=== PATIENT | female | born 1940 | race Caucasian/White ===

== ENCOUNTER → 2017-01-11 | Outpatient (CLI) | payer MEDICARE, OTHER ==
--- NOTE | 2017-01-11 13:05 | FL ---
EXAMINATION TYPE: FL barium swallow w video DATE OF EXAM: 01/11/2017 MODIFIED SWALLOW / DEGLUTITION STUDY CLINICAL HISTORY: Dysphagia. TECHNIQUE: Deglutition study is performed utilizing thin liquid barium, honey and nectar thick liqui d barium, barium thick applesauce, and barium coated cracker. COMPARISON: None. FINDINGS: The oral and pharyngeal phases delayed initiation and propagation with all modalities teste d. Intermittent, transient penetration was seen with all consistencies, improved with chin to maneuve r. Normal mastication is seen with solid modalities tested. There is no evidence of laryngeal aspira tion with any modality tested. Minimal pharyngeal residue was appreciated. IMPRESSION: Intermittent transient penetration, improved with chin tuck maneuver. No evidence of francheska ngeal aspiration. Please refer to speech therapist notes for further details if necessary.
--- NOTE | 2017-01-11 13:08 | XR ---
EXAMINATION TYPE: XR abdomen 1V , 3 VIEWS DATE OF EXAM ORDERED: 01/11/2017 HISTORY: R13.1 dysphagia. COMPARISON: None. FINDINGS: The abdominal gas pattern is within normal limits. There is no evidence of obstruction or free air. There is a moderate amount stool in the right-sided colon and also within the rectum. The r adial opaque substances within the rectum. This has a appearance of ingested medication. 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 IMPRESSION: 1. NO ACUTE INTRA-ABDOMINAL ABNORMALITY. 2. MODERATE FECAL STASIS.
--- NOTE | 2017-01-11 13:15 | FL ---
EXAMINATION TYPE: FL barium swallow DATE OF EXAM: 01/11/2017 CLINICAL HISTORY: Dysphagia TECHNIQUE: A single contrast esophagram is performed utilizing air and barium. A total of 2 minutes and 20 seconds of fluoroscopic time was utilized during procedure. COMPARISON: None FINDINGS: Examination is limited as the patient could not stand upright for the procedure, therefore examination was done in a supine position. The esophagus is dilated and patulous throughout. Numerous air bubbles are seen, however other plaque s persists throughout the examination. Additional outpouching at the level of the proximal thoracic e sophagus is seen left laterally and persists through the examination. Tertiary contractions are also noted as well as a small hiatal hernia. Moderate gastroesophageal reflux is present in the gravity in dependent examination. IMPRESSION: Dilated and patulous esophagus without obstruction at the gastroesophageal junction. Multifocal plaqu es may be sequela of underlying esophagitis. Moderate reflux is identified as well as a small hiatal hernia. Additional outpouching with potential intrinsic mass is seen in the upper left lateral thorac ic esophagus. Endoscopy is recommended for direct visualization.
== END | disposition home or self-care (01) ==
LOC: RADFLMAIN 11:12
PROVIDERS: ATTEND Family Medicine
DX: K22.8 Other specified diseases of esophagus (principal); K44.9 Diaphragmatic hernia without obstruction or gangrene; F41.9 Anxiety disorder, unspecified; K21.9 Gastro-esophageal reflux disease without esophagitis; R10.9 Unspecified abdominal pain
CPT/HCPCS: 74000; 74220; 74230

== ENCOUNTER 2017-01-12 15:02 | Inpatient (IN) | payer MEDICARE, OTHER ==
--- NOTE | 2017-01-12 15:05 | ED ---
General Adult HPI - General Stated complaint: Decreased urine output Time Seen by Provider: 01/12/17 15:04 - History of Present Illness Initial comments: Patient is a 76-year-old bedbound female who presents to the ED from an extended care facility for evaluation of altered mental status. Per the daughter at bedside the patient has been bedbound for 13 years, she was previously and in extended care facility in [place]. Earlier this month she was taken to an outside hospital at which time she was noted to be septic secondary to pneumonia and urinary tract infection. She was treated with IV antibiotics and discharged to an extended care facility near our hospital. Patient's daughter states that her mother has been in extended care facility since approximately January 04. The daughter has visited her mother daily and states that over the past couple of days she has noticed a significant decline in the patient's mental status as well as functional ability. Daughter at bedside states that her mother seems confused, she is not making sense when she is talking, her speech sounds slurred and she is not effectively communicating. In addition she states that her mother has been very weak and over the past couple of days has had worsening weakness to a point now where she cannot feed herself or hold a cup of water. Daughter also expresses concern that her mother hasn't been eating or drinking well for the past 2 days and she attributes this to her mother's weakness. Patient is alert to self. She can identify that she is at a hospital. She has no acute complaints. She states that she is in pain and that she is always in pain. She cannot localize her pain. She tells me that she was brought to the emergency department because she has been sleeping too much. - Related Data Home Medications Medication Instructions Recorded Confirmed ALPRAZolam [Xanax] 0.25 mg PO BID PRN 01/12/17 01/12/17 Acetaminophen Tab [Tylenol Tab] 500 mg PO Q6H PRN MDD 4000MG PER 01/12/17 24HR Aspirin 81 mg PO DAILY 01/12/17 01/12/17 Calcium Carb-Vit D 500Mg-200Un 1 tab PO BID 01/12/17 01/12/17 [Oscal 500+D] Cholecalciferol [Vitamin D3] 2,000 unit PO DAILY 01/12/17 01/12/17 DULoxetine HCL [Cymbalta] 60 mg PO BID 01/12/17 01/12/17 Dimethicone/Zinc Oxide [Inzo Zinc 1 applic TOPICAL DIRECTED PRN 01/12/17 Oxide Barrier Cream] Dimethicone/Zinc Oxide [Inzo Zinc 1 applic TOPICAL Q12H 01/12/17 01/12/17 Oxide Barrier Cream] Docusate [Colace] 100 mg PO DAILY PRN 01/12/17 01/12/17 Escitalopram [Lexapro] 10 mg PO DAILY 01/12/17 01/12/17 Gabapentin [Neurontin] 200 mg PO BID 01/12/17 01/12/17 Hydrocodone/Acetaminophen [Douglas 1 tab PO BID 01/12/17 01/12/17 7.5-325] Hydrocodone/Acetaminophen [Douglas 1 tab PO Q6HR PRN 01/12/17 01/12/17 7.5-325] Ipratropium-Albuterol Nebulize 3 ml INHALATION RT-Q4H PRN 01/12/17 01/12/17 [Duoneb 0.5 mg-3 mg/3 ml Soln] Levothyroxine Sodium [Synthroid] 125 mcg PO DAILY 01/12/17 01/12/17 Lidocaine 5% Patch [Lidoderm] 1 patch TOPICAL DAILY@1800 01/12/17 01/12/17 Loratadine [Claritin] 10 mg PO DAILY 01/12/17 01/12/17 Magnesium Hydroxide [Milk of 2,400 mg PO DAILY PRN 01/12/17 01/12/17 Magnesia] Metoprolol Succinate [Toprol XL] 25 mg PO DAILY 01/12/17 01/12/17 Multivits,Th W-Ca,Fe,Oth Min 1 tab PO DAILY 01/12/17 01/12/17 [Therapeutic M] Nystatin 100,000Unit/gm Cream 1 applic TOPICAL Q12H 01/12/17 01/12/17 [Mycostatin Cream] Omeprazole [PriLOSEC] 20 mg PO AC-BRKFST 01/12/17 01/12/17 Ondansetron HCl [Zofran] 4 mg PO Q6H PRN 01/12/17 01/12/17 Polyethylene Glycol 3350 [Miralax] 17 gm PO DAILY PRN 01/12/17 01/12/17 QUEtiapine [SEROquel] 50 mg PO HS 01/12/17 01/12/17 Sodium Chloride [Saline Mist] 2 spray EA NOSTRIL DIRECTED PRN 01/12/17 Topiramate [Topamax] 50 mg PO BID 01/12/17 01/12/17 amLODIPine [Norvasc] 5 mg PO DAILY 01/12/17 01/12/17 Allergies Allergy/AdvReac Type Severity Reaction Status Date / Time metronidazole [From Flagyl] Allergy Unknown Verified 01/12/17 15:50 Review of Systems ROS Statement: Those systems with pertinent positive or pertinent negative responses have been documented in the HPI. ROS Other: All systems not noted in ROS Statement are negative. Constitutional: Reports: weakness (generalized). Denies: fever Eyes: Denies: vision change ENT: Denies: throat pain, congestion Respiratory: Reports: cough. Denies: dyspnea, wheezes Cardiovascular: Reports: edema. Denies: chest pain Endocrine: Reports: fatigue Gastrointestinal: Reports: abdominal pain (abdominal wall pain secondary to heparin injections) Genitourinary: Reports: other (urinary incontinence - chronic, diapered). Denies: urgency, dysuria Musculoskeletal: Reports: arthralgia, myalgia Skin: Reports: change in color (bilateral lower extremities appear redder than usual) Neurological: Reports: confusion Psychiatric: Reports: visual hallucinations General Exam Limitations: altered mental status General appearance: alert, obese Head exam: Present: atraumatic, normocephalic Eye exam: Present: PERRL, other (conjunctival pallor) ENT exam: Present: other (dry mucous membranes) Neck exam: Present: normal inspection Respiratory exam: Present: decreased breath sounds (bilateral bases) Cardiovascular Exam: Present: regular rate GI/Abdominal exam: Present: soft, tenderness (Abdominal wall tenderness, multiple bruises noted, consistent with history of subcutaneous heparin injections). Absent: distended Rectal exam: Present: deferred External exam: Present: other (Dependent edema noted) Extremities exam: Present: pedal edema, other (Bilateral lower extremities edematous with cellulitic changes worse in the left lower extremity than the right. Bilateral feet and ankles with dropfoot and chronic changes consistent with Charcot foot) Right Hand Wrist exam: Present: deformity (Chronic secondary to an injury 13 years ago that was never treated) Neurological exam: Present: alert, other (Oriented to self, right sided arm weakness and deformity) Psychiatric exam: Present: other (Confused) Skin exam: Present: warm, dry, pallor Course Vital Signs 01/12/17 01/12/17 01/12/17 15:50 17:03 18:13 Temperature 99.5 F 98.8 F Pulse Rate 87 97 86 Respiratory 20 20 18 Rate Blood Pressure 96/55 97/53 101/57 O2 Sat by Pulse 96 95 94 L Oximetry 01/12/17 01/12/17 18:33 19:46 Temperature 99.3 F Pulse Rate 85 79 Respiratory 18 20 Rate Blood Pressure 110/57 123/77 O2 Sat by Pulse 97 93 L Oximetry - Reevaluation(s) Reevaluation #1: Patient reevaluated, resting comfortably in the emergency department. Is noted to have mild hypotension with systolics in the mid 90s. Map remains above 65. 01/12/17 17:05 Reevaluation #2: Patient reevaluated. Patient care was discussed with the patient's family at bedside who state the patient's most recent wishes were that she would be full code and would consent to invasive procedures were then to be needed 01/12/17 18:28 EKG Findings - EKG Comments: EKG Findings:: EKG time 1628 EKG has a normal sinus rhythm with a rate of 88. Normal intervals, RI 180, QRS 80, QTC 411. There is no acute ST elevations or depressions. There is noted to be T-wave inversions in V1 and V2 and Q waves indicative of previous ischemia. Medical Decision Making - Medical Decision Making Patient was seen and evaluated upon arrival to the emergency department Vital signs were reviewed, patient was mildly hypoxic, hypotensive Given the patient's history of recent admission to the hospital for sepsis, her altered mental status, bedridden status and immune compromised state there is concern that she is again septic. In addition physical exam is concerning for significant pallor which the daughter states is new. A sepsis workup as well as cardiac labs and type and screen were ordered for evaluation Labs reveal leukocytosis with neutrophilia. No lactic acidosis - repeat lactic acid not ordered Chest x-ray reveals persistent right-sided pneumonia patient has antibiotics ordered which are appropriate for HCAP Pneumonia Urinalysis with bacteria but no signs of urinary tract infection Patient's hypotension improving after IV fluids CT head with no acute findings Patient care discussed with Dr. Vega who accepts admission to the selective unit for sepsis secondary to HCAP Pneumonia with altered mental status she is she - Lab Data Result diagrams: 01/12/17 15:49 01/12/17 15:49 Lab Results 01/12/17 01/12/17 01/12/17 Range/Units 15:49 15:49 15:49 WBC 18.1 H (3.8-10.6) k/uL RBC 3.38 L (3.80-5.40) m/uL Hgb 9.7 L (11.4-16.0) gm/dL Hct 31.6 L (34.0-46.0) % MCV 93.6 (80.0-100.0) fL MCH 28.7 (25.0-35.0) pg MCHC 30.7 L (31.0-37.0) g/dL RDW 16.4 H (11.5-15.5) % Plt Count 253 (150-450) k/uL Neutrophils % 92 % Lymphocytes % 4 % Monocytes % 2 % Eosinophils % 2 % Basophils % 0 % Neutrophils # 16.7 H (1.3-7.7) k/uL Lymphocytes # 0.6 L (1.0-4.8) k/uL Monocytes # 0.4 (0-1.0) k/uL Eosinophils # 0.3 (0-0.7) k/uL Basophils # 0.0 (0-0.2) k/uL Hypochromasia Moderate Poikilocytosis Slight Anisocytosis Slight PT (9.0-12.0) sec INR (<1.2) APTT (22.0-30.0) sec VBG pH (7.31-7.41) VBG pCO2 (37-51) mmHg VBG HCO3 (24-28) mmol/L Sodium 129 L (137-145) mmol/L Potassium 4.9 (3.5-5.1) mmol/L Chloride 87 L (98-107) mmol/L Carbon Dioxide 33 H (22-30) mmol/L Anion Gap 9 mmol/L BUN 34 H (7-17) mg/dL Creatinine 1.10 H (0.52-1.04) mg/dL Est GFR (MDRD) Af Amer 59 (>60 ml/min/1.73 sqM) Est GFR (MDRD) Non-Af 48 (>60 ml/min/1.73 sqM) Glucose 93 (74-99) mg/dL Plasma Lactic Acid Harry 0.9 (0.7-2.0) mmol/L Calcium 9.0 (8.4-10.2) mg/dL Total Bilirubin 0.4 (0.2-1.3) mg/dL AST 20 (14-36) U/L ALT 29 (9-52) U/L Alkaline Phosphatase 69 (38-126) U/L Troponin I (0.000-0.034) ng/mL Total Protein 6.3 (6.3-8.2) g/dL Albumin 3.2 L (3.5-5.0) g/dL Urine Color Urine Appearance (Clear) Urine pH (5.0-8.0) Ur Specific [place] (1.001-1.035) Urine Protein (Negative) Urine Glucose (UA) (Negative) Urine Ketones (Negative) Urine Blood (Negative) Urine Nitrite (Negative) Urine Bilirubin (Negative) Urine Urobilinogen (<2.0) mg/dL Ur Leukocyte Esterase (Negative) Urine RBC (0-5) /hpf Urine WBC (0-5) /hpf Ur Squamous Epith Cells (0-4) /hpf Urine Bacteria (None) /hpf Urine Mucus (None) /hpf 01/12/17 01/12/17 01/12/17 Range/Units 15:49 15:49 18:09 WBC (3.8-10.6) k/uL RBC (3.80-5.40) m/uL Hgb (11.4-16.0) gm/dL Hct (34.0-46.0) % MCV (80.0-100.0) fL MCH (25.0-35.0) pg MCHC (31.0-37.0) g/dL RDW (11.5-15.5) % Plt Count (150-450) k/uL Neutrophils % % Lymphocytes % % Monocytes % % Eosinophils % % Basophils % % Neutrophils # (1.3-7.7) k/uL Lymphocytes # (1.0-4.8) k/uL Monocytes # (0-1.0) k/uL Eosinophils # (0-0.7) k/uL Basophils # (0-0.2) k/uL Hypochromasia Poikilocytosis Anisocytosis PT 10.6 (9.0-12.0) sec INR 1.0 (<1.2) APTT 26.0 (22.0-30.0) sec VBG pH (7.31-7.41) VBG pCO2 (37-51) mmHg VBG HCO3 (24-28) mmol/L Sodium (137-145) mmol/L Potassium (3.5-5.1) mmol/L Chloride (98-107) mmol/L Carbon Dioxide (22-30) mmol/L Anion Gap mmol/L BUN (7-17) mg/dL Creatinine (0.52-1.04) mg/dL Est GFR (MDRD) Af Amer (>60 ml/min/1.73 sqM) Est GFR (MDRD) Non-Af (>60 ml/min/1.73 sqM) Glucose (74-99) mg/dL Plasma Lactic Acid Harry (0.7-2.0) mmol/L Calcium (8.4-10.2) mg/dL Total Bilirubin (0.2-1.3) mg/dL AST (14-36) U/L ALT (9-52) U/L Alkaline Phosphatase (38-126) U/L Troponin I 0.028 (0.000-0.034) ng/mL Total Protein (6.3-8.2) g/dL Albumin (3.5-5.0) g/dL Urine Color Yellow Urine Appearance Clear (Clear) Urine pH 5.5 (5.0-8.0) Ur Specific [place] 1.016 (1.001-1.035) Urine Protein 1+ H (Negative) Urine Glucose (UA) Negative (Negative) Urine Ketones Negative (Negative) Urine Blood Negative (Negative) Urine Nitrite Negative (Negative) Urine Bilirubin 1+ H (Negative) Urine Urobilinogen <2.0 (<2.0) mg/dL Ur Leukocyte Esterase Negative (Negative) Urine RBC 1 (0-5) /hpf Urine WBC <1 (0-5) /hpf Ur Squamous Epith Cells <1 (0-4) /hpf Urine Bacteria Occasional H (None) /hpf Urine Mucus Rare H (None) /hpf 01/12/17 Range/Units 19:20 WBC (3.8-10.6) k/uL RBC (3.80-5.40) m/uL Hgb (11.4-16.0) gm/dL Hct (34.0-46.0) % MCV (80.0-100.0) fL MCH (25.0-35.0) pg MCHC (31.0-37.0) g/dL RDW (11.5-15.5) % Plt Count (150-450) k/uL Neutrophils % % Lymphocytes % % Monocytes % % Eosinophils % % Basophils % % Neutrophils # (1.3-7.7) k/uL Lymphocytes # (1.0-4.8) k/uL Monocytes # (0-1.0) k/uL Eosinophils # (0-0.7) k/uL Basophils # (0-0.2) k/uL Hypochromasia Poikilocytosis Anisocytosis PT (9.0-12.0) sec INR (<1.2) APTT (22.0-30.0) sec VBG pH 7.34 (7.31-7.41) VBG pCO2 62 H (37-51) mmHg VBG HCO3 32 H (24-28) mmol/L Sodium (137-145) mmol/L Potassium (3.5-5.1) mmol/L Chloride (98-107) mmol/L Carbon Dioxide (22-30) mmol/L Anion Gap mmol/L BUN (7-17) mg/dL Creatinine (0.52-1.04) mg/dL Est GFR (MDRD) Af Amer (>60 ml/min/1.73 sqM) Est GFR (MDRD) Non-Af (>60 ml/min/1.73 sqM) Glucose (74-99) mg/dL Plasma Lactic Acid Harry (0.7-2.0) mmol/L Calcium (8.4-10.2) mg/dL Total Bilirubin (0.2-1.3) mg/dL AST (14-36) U/L ALT (9-52) U/L Alkaline Phosphatase (38-126) U/L Troponin I (0.000-0.034) ng/mL Total Protein (6.3-8.2) g/dL Albumin (3.5-5.0) g/dL Urine Color Urine Appearance (Clear) Urine pH (5.0-8.0) Ur Specific [place] (1.001-1.035) Urine Protein (Negative) Urine Glucose (UA) (Negative) Urine Ketones (Negative) Urine Blood (Negative) Urine Nitrite (Negative) Urine Bilirubin (Negative) Urine Urobilinogen (<2.0) mg/dL Ur Leukocyte Esterase (Negative) Urine RBC (0-5) /hpf Urine WBC (0-5) /hpf Ur Squamous Epith Cells (0-4) /hpf Urine Bacteria (None) /hpf Urine Mucus (None) /hpf Disposition Clinical Impression: Sepsis, HCAP (healthcare-associated pneumonia) Disposition: ADMITTED IP TO THIS HOSP Condition: Serious
[2017-01-12] MEDS ORDERED: IV VANCOMYCIN PER PHARMACY 1 EACH MISC MISCELLANE PRN (15:30)
[2017-01-12] MEDS ORDERED: PIPERACILLIN-TAZOBACTAM 3.375 GM in DEXTROSE/WATER 1 50ML.BAG IVPB STA (15:30)
[2017-01-12 16:11] LABS: Anisocytosis Slight; Basophils % (A) 0 %; CH 29.6; CHCM 31.8; Eosinophils # (A) 0.3 k/uL (0-0.7); Eosinophils % (A) 2 %; HCT 31.6 % (34.0-46.0); HDW 3.69; HGB 9.7 gm/dL (11.4-16.0); Hypochromasia Moderate; Luc # (Auto) 0.12; Luc % (Auto) 1; Lymphocytes # (A) 0.6 k/uL (1.0-4.8); Lymphocytes % (A) 4 %; MCH 28.7 pg (25.0-35.0); MCHC 30.7 g/dL (31.0-37.0); MCV 93.6 fL (80.0-100.0); Monocytes # (A) 0.4 k/uL (0-1.0); Monocytes % (A) 2 %; Neutrophils # (A) 16.7 k/uL (1.3-7.7); Neutrophils % (A) 92 %; Poikilocytosis Slight; RBC 3.38 m/uL (3.80-5.40); RDW 16.4 % (11.5-15.5); WBC 18.1 k/uL (3.8-10.6); WBC (Perox) 19.16
[2017-01-12 16:21] LABS: Potassium 4.9 mmol/L (3.5-5.1); Total Bilirubin 0.4 mg/dL (0.2-1.3); Total Protein 6.3 g/dL (6.3-8.2)
[2017-01-12] MEDS ORDERED: VANCOMYCIN 1,750 MG in SODIUM CHLORIDE 0.9% 250 ML IVPB STA (16:22)
[2017-01-12 16:23] LABS: Prothrombin Time 10.6 sec (9.0-12.0)
[2017-01-12] MEDS ORDERED: SODIUM CHLORIDE 0.9% 1,000 ML IV ONE ×2 (16:27→18:14)
--- NOTE | 2017-01-12 17:40 | XR ---
EXAMINATION TYPE: XR chest 2V DATE OF EXAM: 01/12/2017 COMPARISON: NONE HISTORY: Fever TECHNIQUE: Frontal and lateral views of the chest are obtained. FINDINGS: There is patchy infiltrate in the right mid and lower lung field. Exam is limited by the o besity. Heart is enlarged. Thoracic aorta shows mild atheromatous change. There is slight blunting of right costophrenic angle. There are chest leads. IMPRESSION: Right pleural small effusion and right lower lobe infiltrate. Mild heart failure cannot be excluded. Cardiomegaly.
[2017-01-12 18:25] LABS: Appearance,Urine Clear (Clear); Bacteria,Urine Occasional /hpf; Bilirubin,Urine 1+ (Negative); Glucose,Urine (UA) Negative (Negative); Ketones,Urine Negative (Negative); Leukocyte Esterase,Urine Negative (Negative); Mucus,Urine Rare /hpf; Nitrite,Urine Negative (Negative); PH, Urine 5.5 (5.0-8.0); Particle Count 12907; Protein,Urine 1+ (Negative); RBC,Urine 1 /hpf (0-5); Specific Gravity,Urine 1.016 (1.001-1.035); Squamous Epithelial Cell,Urine <1 /hpf (0-4); UA Billing (MACRO vs. MICRO) MICRO; Urobilinogen,Urine <2.0 mg/dL (<2.0); WBC,Urine <1 /hpf (0-5)
--- NOTE | 2017-01-12 19:11 | CT ---
EXAMINATION TYPE: CT brain wo con DATE OF EXAM: 01/12/2017 COMPARISON: NONE HISTORY: Confusion. CT DLP: 981.30 mGycm Automated exposure control for dose reduction was used. FINDINGS: There is cerebral cortical atrophy. There is no mass effect nor midline shift. There is no sign of in tracranial hemorrhage. There is a 1 cm hypodense area in the white matter adjacent to the occipital h orn right lateral ventricle consistent with old lacunar infarct. 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
[2017-01-12 19:26] LABS: VBG PH 7.34 (7.31-7.41)
[2017-01-12] MEDS ORDERED: NALOXONE 0.4 MG/ML 1 ML VIAL IV PRN (19:37)
[2017-01-12] MEDS: SODIUM CHLORIDE 0.9% 1,000 ML IV SCH (19:49)
[2017-01-13 07:10] LABS: Glucose,Whole Blood 83 mg/dL (75-99)
[2017-01-13] MEDS ORDERED: MINERAL OIL-WHITE PETROLATUM 120 GM JAR TOPICAL PRN (10:55)
[2017-01-13] MEDS ORDERED: ONDANSETRON 4 MG TAB PO PRN (10:55)
[2017-01-13] MEDS ORDERED: IPRATROPIUM-ALBUTEROL 3 ML NEB INHALATION PRN (10:55)
[2017-01-13] MEDS ORDERED: MAGNESIUM HYDROXIDE 2,400 MG/10 ML CUP PO PRN (10:55)
[2017-01-13] MEDS ORDERED: ACETAMINOPHEN TAB 500 MG TAB PO PRN (10:55)
[2017-01-13] MEDS ORDERED: HYDROcodone/APAP 7.5-325MG 1 EACH TAB PO PRN (10:55)
[2017-01-13] MEDS: SODIUM CHLORIDE 0.9% 1,000 ML IV SCH ×2 (12:37→20:44)
[2017-01-13] MEDS: ASPIRIN 81 MG CHEW PO SCH (12:40)
[2017-01-13] MEDS: METOPROLOL SUCCINATE (ER) 25 MG TAB.ER.24H PO SCH (12:48)
[2017-01-13] MEDS: PIPERACILLIN-TAZOBACTAM 3.375 GM in DEXTROSE/WATER 1 50ML.BAG IVPB SCH ×2 (12:49→18:04)
[2017-01-13] MEDS: ENOXAPARIN 40 MG/0.4 ML SYRINGE SQ SCH (12:49)
[2017-01-13] MEDS: TOPIRAMATE 25 MG TAB PO SCH ×2 (12:49→20:57)
[2017-01-13] MEDS: ESCITALOPRAM 10 MG TAB PO SCH (12:49)
[2017-01-13] MEDS: GABAPENTIN 100 MG CAP PO SCH ×2 (12:49→20:57)
[2017-01-13] MEDS: DULoxetine HCL 60 MG CAPSULE.DR PO SCH ×2 (12:49→20:57)
[2017-01-13] MEDS: FUROSEMIDE 10 MG/ML 4 ML VIAL IV SCH (12:49)
--- NOTE | 2017-01-13 13:07 | P.HPIM ---
History of Present Illness H&P Date: 01/13/17 This is a 76-year-old female patient of Dr. Elizabeth currently residing at [facility] with past medical history COPD, hypertension, obstructive sleep apnea on BiPAP at nighttime, chronic pain, gastric esophageal reflux disease, hypothyroidism, ALLERGIC rhinitis, osteoarthritis, idiopathic peripheral autonomic neuropathy, chronic urinary tract infections, vitamin D deficiency, morbid obesity patient was recently hospitalized at the [facility] in [facility] with HCAP and acute UTI at that time she was treated with IV antibiotic and she was sent to [facility] on the [place] for physical therapy rehabilitation, patient has been coughing quite a bit of phlegm over the last few days with yellowish greenish phlegm her daughter came to check on her and she asked to be transferred to the emergency department at [facility] for evaluation of possible HCAP. 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 Review of Systems Constitutional: Reports chronic pain, Reports weakness, Reports weight gain, Denies anorexia, Denies chronic headaches, Denies lethargy, Denies malaise, Denies weight loss Eyes: denies blurred vision, denies bulging eye, denies decreased vision, denies diplopia Ears: deny: decreased hearing Ears, nose, mouth and throat: Denies dysphagia, Denies neck lump, Denies swelling in throat, Denies sore throat Cardiovascular: Reports decreased exercise tolerance, Reports dyspnea on exertion, Reports high blood pressure, Reports shortness of breath, Denies chest pain, Denies syncope Respiratory: Reports congestion, Reports cough, Reports cough with sputum, Reports home oxygen, Reports sleep apnea, Reports wheezing, Denies snoring Gastrointestinal: Denies abdominal pain, Denies bloating, Denies BRBPR, Denies excessive gas, Denies heartburn, Denies hematemesis, Denies hematochezia, Denies indigestion, Denies loss of appetite, Denies melena, Denies nausea, Denies vomiting Genitourinary: Denies dysuria, Denies hematuria Menstruation: Reports postmenopausal Musculoskeletal: Reports atrophy, Reports gait dysfunction, Reports muscle weakness Musculoskeletal: right: hand pain, hand stiffness, hand swelling, bilateral: ankle pain, ankle stiffness, ankle swelling, foot pain, foot stiffness, foot swelling, absent: as per HPI, elbow pain, elbow stiffness, elbow swelling, hip pain, hip stiffness, hip swelling, knee pain, knee stiffness, knee swelling, shoulder pain, shoulder stiffness, shoulder swelling, wrist pain, wrist stiffness, wrist swelling Integumentary: Denies pruritus, Denies rash Neurological: Denies numbness, Denies weakness Psychiatric: Reports anxiety, Reports depression, Reports irritability, Reports mood swings Endocrine: Denies fatigue, Denies weight change Past Medical History Past Medical History: Heart Failure, COPD, GERD/Reflux, Hyperlipidemia, Hypertension, Musculoskeletal Disorder, Neurologic Disorder, Osteoarthritis (OA) , Sleep Apnea/CPAP/BIPAP, Thyroid Disorder Additional Past Medical History / Comment(s): COPD, hypertension, obstructive sleep apnea on BiPAP at nighttime, chronic pain, gastric esophageal reflux disease, hypothyroidism, ALLERGIC rhinitis, osteoarthritis, idiopathic peripheral autonomic neuropathy, chronic urinary tract infections, vitamin D deficiency, morbid obesity, morbid obesity History of Any Multi-Drug Resistant Organisms: Unobtainable Past Surgical History: Appendectomy, Orthopedic Surgery Additional Past Surgical History / Comment(s): PEG tube and trach placement with removal, left hip arthroplasty in 1995 Past Psychological History: Anxiety, Depression Smoking Status: Former smoker Past Alcohol Use History: None Reported Additional Past Alcohol Use History / Comment(s): Patient was a smoker 3 packs per day for 38 years and quit in 1983. She has had alcohol use in the past. 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 Past Drug Use History: None Reported - Past Family History Father Additional Family Medical History / Comment(s): at age 58 from a fall and head injury. Mother Additional Family Medical History / Comment(s): Mother at age 70 from a CVA. Brother(s) Additional Family Medical History / Comment(s): Patient has one brother with no major medical problems. Sister(s) Additional Family Medical History / Comment(s): Patient has one sister with no major medical problems. Daughter(s) Additional Family Medical History / Comment(s): Patient has 2 daughters no major medical problems. Medications and Allergies Home Medications Medication Instructions Recorded Confirmed Type ALPRAZolam [Xanax] 0.25 mg PO BID PRN 01/12/17 01/12/17 History Acetaminophen Tab [Tylenol Tab] 500 mg PO Q6H PRN MDD 4000MG PER 01/12/17 History 24HR Aspirin 81 mg PO DAILY 01/12/17 01/12/17 History Calcium Carb-Vit D 500Mg-200Un 1 tab PO BID 01/12/17 01/12/17 History [Oscal 500+D] Cholecalciferol [Vitamin D3] 2,000 unit PO DAILY 01/12/17 01/12/17 History DULoxetine HCL [Cymbalta] 60 mg PO BID 01/12/17 01/12/17 History Dimethicone/Zinc Oxide [Inzo Zinc 1 applic TOPICAL DIRECTED PRN 01/12/17 History Oxide Barrier Cream] Dimethicone/Zinc Oxide [Inzo Zinc 1 applic TOPICAL Q12H 01/12/17 01/12/17 History Oxide Barrier Cream] Docusate [Colace] 100 mg PO DAILY PRN 01/12/17 01/12/17 History Escitalopram [Lexapro] 10 mg PO DAILY 01/12/17 01/12/17 History Gabapentin [Neurontin] 200 mg PO BID 01/12/17 01/12/17 History Hydrocodone/Acetaminophen [Avalon 1 tab PO BID 01/12/17 01/12/17 History 7.5-325] Hydrocodone/Acetaminophen [Avalon 1 tab PO Q6HR PRN 01/12/17 01/12/17 History 7.5-325] Ipratropium-Albuterol Nebulize 3 ml INHALATION RT-Q4H PRN 01/12/17 01/12/17 History [Duoneb 0.5 mg-3 mg/3 ml Soln] Levothyroxine Sodium [Synthroid] 125 mcg PO DAILY 01/12/17 01/12/17 History Lidocaine 5% Patch [Lidoderm] 1 patch TOPICAL DAILY@1800 01/12/17 01/12/17 History Loratadine [Claritin] 10 mg PO DAILY 01/12/17 01/12/17 History Magnesium Hydroxide [Milk of 2,400 mg PO DAILY PRN 01/12/17 01/12/17 History Magnesia] Metoprolol Succinate [Toprol XL] 25 mg PO DAILY 01/12/17 01/12/17 History Multivits,Th W-Ca,Fe,Oth Min 1 tab PO DAILY 01/12/17 01/12/17 History [Therapeutic M] Nystatin 100,000Unit/gm Cream 1 applic TOPICAL Q12H 01/12/17 01/12/17 History [Mycostatin Cream] Omeprazole [PriLOSEC] 20 mg PO AC-BRKFST 01/12/17 01/12/17 History Ondansetron HCl [Zofran] 4 mg PO Q6H PRN 01/12/17 01/12/17 History Polyethylene Glycol 3350 [Miralax] 17 gm PO DAILY PRN 01/12/17 01/12/17 History QUEtiapine [SEROquel] 50 mg PO HS 01/12/17 01/12/17 History Sodium Chloride [Saline Mist] 2 spray EA NOSTRIL DIRECTED PRN 01/12/17 History Topiramate [Topamax] 50 mg PO BID 01/12/17 01/12/17 History amLODIPine [Norvasc] 5 mg PO DAILY 01/12/17 01/12/17 History Allergies Allergy/AdvReac Type Severity Reaction Status Date / Time metronidazole [From Flagyl] Allergy Unknown Verified 01/12/17 15:50 Physical Exam Vitals: Vital Signs Temp Pulse Pulse Resp BP BP Pulse Ox 01/13/17 08:37 98.6 F 89 18 152/65 94 L 01/13/17 08:34 98.6 F 89 18 152/65 94 L 01/13/17 08:00 98.3 F 88 18 143/79 90 L 01/13/17 04:00 98.3 F 85 18 129/79 94 L 01/13/17 00:00 82 20 01/12/17 23:50 98.4 F 82 20 122/54 96 01/12/17 23:38 98.4 F 82 20 122/54 96 01/12/17 22:13 80 18 112/54 96 01/12/17 20:56 99.4 F 84 20 118/52 93 L 01/12/17 19:46 99.3 F 79 20 123/77 93 L 01/12/17 18:33 85 18 110/57 97 01/12/17 18:13 98.8 F 86 18 101/57 94 L 01/12/17 17:03 97 20 97/53 95 01/12/17 15:50 99.5 F 87 20 96/55 96 Intake and Output 01/12/17 01/13/17 01/13/17 22:59 06:59 14:59 Intake Total 1900 337 Output Total 500 Balance -500 1900 337 Intake: IV 1900 Piperacillin-Tazobactam 3 50 .375 gm In Dextrose/Water 1 50ml.bag @ 12.5 mls/hr IVPB ONCE STA Rx#: [id number] Sodium Chloride 0.9% 1, 1600 000 ml @ 100 mls/hr IV . Q10H MARLA Rx#:[id number] Vancomycin 1,750 mg In 250 Sodium Chloride 0.9% 250 ml @ 125 mls/hr IVPB ONCE STA Rx#:[id number] Oral 337 Output: Urine 500 Straight 500 Other: Voiding Method Diaper Incontinent Weight 106.594 kg 106 kg - Constitutional General appearance: mild distress, obese - EENT Eyes: anicteric sclerae, EOMI, PERRLA, no ptosis, no scleral icterus, normal appearance ENT: hearing grossly normal, NA/AT, normal oropharynx, no thrush, no tonsillar exudates Ears: bilateral: normal - Neck Neck: no lymphadenopathy, normal ROM, no rigidity, no stridor, no thyromegaly Carotids: bilateral: upstroke delayed Thyroid: bilateral: normal size - Respiratory Respiratory: bilateral: diminished, negative: dullness, rales, rhonchi, wheezing , prolonged expiration, prolonged inspiration - Cardiovascular Rhythm: regular Heart sounds: normal: S1, S2 Abnormal Heart Sounds: systolic murmur, no rub, S3 Gallop, no click - Gastrointestinal General gastrointestinal: normal bowel sounds, soft, no splenomegaly, no tenderness, umbilical hernia, no ventral hernia - Integumentary Integumentary: normal, normal turgor - Neurologic Neurologic: focal deficits (bilateral lower extremity paraparesis.) - Musculoskeletal Musculoskeletal: no gait normal, generalized weakness - Psychiatric Psychiatric: A&O x's 3, no appropriate affect, intact judgment & insight Results CBC & Chem 7: 01/12/17 15:49 01/12/17 15:49 Labs: Abnormal Lab Results - Last 24 Hours (Table) 01/12/17 01/12/17 01/12/17 Range/Units 15:49 15:49 18:09 WBC 18.1 H (3.8-10.6) k/uL RBC 3.38 L (3.80-5.40) m/uL Hgb 9.7 L (11.4-16.0) gm/dL Hct 31.6 L (34.0-46.0) % MCHC 30.7 L (31.0-37.0) g/dL RDW 16.4 H (11.5-15.5) % Neutrophils # 16.7 H (1.3-7.7) k/uL Lymphocytes # 0.6 L (1.0-4.8) k/uL VBG pCO2 (37-51) mmHg VBG HCO3 (24-28) mmol/L Sodium 129 L (137-145) mmol/L Chloride 87 L (98-107) mmol/L Carbon Dioxide 33 H (22-30) mmol/L BUN 34 H (7-17) mg/dL Creatinine 1.10 H (0.52-1.04) mg/dL Albumin 3.2 L (3.5-5.0) g/dL Urine Protein 1+ H (Negative) Urine Bilirubin 1+ H (Negative) Urine Bacteria Occasional H (None) /hpf Urine Mucus Rare H (None) /hpf 01/12/17 Range/Units 19:20 WBC (3.8-10.6) k/uL RBC (3.80-5.40) m/uL Hgb (11.4-16.0) gm/dL Hct (34.0-46.0) % MCHC (31.0-37.0) g/dL RDW (11.5-15.5) % Neutrophils # (1.3-7.7) k/uL Lymphocytes # (1.0-4.8) k/uL VBG pCO2 62 H (37-51) mmHg VBG HCO3 32 H (24-28) mmol/L Sodium (137-145) mmol/L Chloride (98-107) mmol/L Carbon Dioxide (22-30) mmol/L BUN (7-17) mg/dL Creatinine (0.52-1.04) mg/dL Albumin (3.5-5.0) g/dL Urine Protein (Negative) Urine Bilirubin (Negative) Urine Bacteria (None) /hpf Urine Mucus (None) /hpf Microbiology - Last 24 Hours (Table) 01/12/17 18:09 Urine Culture - Preliminary Urine,Catheterized Thrombosis Risk Factor Assmnt - DVT/VTE Prophylaxis DVT/VTE Prophylaxis: Pharmacologic Prophylaxis ordered, Mechanical Prophylaxis ordered - Choose All That Apply Each Factor Represents 1 point: Abnormal pulmonary function (COPD) Other Risk Factors: No Each Risk Factor Represents 3 Points: Age 75 years or older Other congenital or acquired thrombophilia - If yes, enter type in comment: No Thrombosis Risk Factor Assessment Total Risk Factor Score: 4 Thrombosis Risk Factor Assessment Level: Moderate Risk Assessment and Plan Plan: Assessment and plan: 1. Acute respiratory insufficiency secondary to right lower lobe pneumonia with the right-sided perfusion as well as acute on chronic diastolic heart failure. Start the patient on Lasix 40 mg IV push every 24 hours, vancomycin 1 g pharmacy to dose its peak and trough, Zosyn 3.375 g IV piggyback every 8 hours , sputum culture, blood culture, urine culture, infectious disease consultation , pulmonary consultation, cardiology consultation, echocardiogram for evaluation of LV function, monitor magnesium, BUN and creatinine, monitor the patient the oxygenation, continue DuoNeb 3 mL nebulization 4 times every day. Monitor the patient weight on a daily basis. 2. Right lower lobe pneumonia with right-sided pleural effusion with sepsis. Continue oxygen support, continue Zosyn 3.375 g IV piggyback every 8 hours, continue DuoNeb 3 mL nebulization 4 times every day, pulmonary consultation. 3. Acute on chronic diastolic heart failure. Continue Toprol-XL 25 mg orally once every day, continue patient on Lasix 40 mg IV push every 24 hours, continue to monitor input and output and daily weight, echocardiogram to be done to evaluate LV function. 4. Recent history of HCAP and UTI with sepsis at [facility] in [place]. Continue treatment as in paragraph #1. 5. GERD. Continue Protonix 40 mg orally once every day. 6. Hypertension and hypertensive cardiovascular disease. Continue Toprol-XL 25 mg orally once every day, amlodipine 5 mg orally once every day. 7. Hyperlipidemia. Low-cholesterol diet. 8. Hypothyroidism. Continue Synthroid 125 g orally once every day. 9. Peripheral neuropathy. Continue gabapentin 200 mg orally twice every day. 10. Depressive disorder. Continue patient on Cymbalta 60 mg orally once every day and Lexapro 10 mg orally once every day. 11. Osteoarthritis with joint deformities including the right hand as well as bilateral lower extremity's. 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 12. Anxiety disorder. Continue patient on Lexapro 10 mg orally once every day. 13. ALLERGIC rhinitis. Continue patient on Claritin 10 mg orally once every day. 14. DVT prophylaxis. Continue Lovenox 40 mg subcutaneously every 24 hours. 15. GI prophylaxis. Continue Protonix 40 mg orally once every day. 16. Patient is full code. Estimate a length of stay 2 midnights. 17. Admit to inpatient. 18. Medical debility. Physical therapy evaluation, social worker assistant consultation for discharge planning.
[2017-01-13] MEDS: IPRATROPIUM-ALBUTEROL 3 ML NEB INHALATION SCH ×3 (13:19→20:17)
--- NOTE | 2017-01-13 13:26 | P.CNPUL ---
History of Present Illness Consult date: 01/13/17 Reason for consult: pneumonia History of present illness: This is a 76-year-old morbidly obese female patient who was the left debilitated following a bout of urosepsis that was complicated by prolonged ventilator-dependent history failure around 13 years ago. Since then the patient has been bedridden, significantly debilitated, has crippling deformities both in upper and lower extremities and she has not ambulated. She was living in a longterm in the [place] area. More recently the patient underwent her hospitalization at [facility]. She was given a diagnosis of a pneumonia involving the right lower lobe. Hospital- acquired pneumonia was suspected and the patient was treated with antibiotics and due to proximity to her daughter's house the patient got [place] [facility] [place]. Yesterday, the patient got transferred from the longterm to the emergency department as the patient was having some difficulties in breathing, her pulse ox was around 87-89% on 5 L of oxygen by nasal cannula, her blood sugar was 168 , her temperature was 98.6 and her respiration was 18 with a blood pressure of 100/52. Pneumonia was suspected. The patient was having also some minimal congested cough. She was brought into the emergency department where a chest x- ray was done and showed a infiltration of the right lung and a small right- sided pleural effusion and right lower lobe pulmonary infiltrate. There was also cardiomegaly. The patient was started on a combination of Zosyn and vancomycin. She is comfortable for now. She utilizes a CPAP/BiPAP machine at the longterm and this was given to her at the time of discharge from [facility], andstudy was done and she qualified to this apparatus by a blood gases that showed hypercapnia. 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 The patient has some minimal residual weakness on the left. No difficulties with speech. No difficulties with swallowing. No fever or chills. No hemoptysis. No pleurisy. Chronic edema lower extremities without any open wounds, ulcers at this point. Review of Systems Constitutional: Reports chronic pain, Reports fatigue, Reports weakness, Reports weight gain Eyes: denies blurred vision, denies bulging eye, denies decreased vision Ears: deny: decreased hearing, ear discharge, earache Ears, nose, mouth and throat: Reports as per HPI Cardiovascular: Reports dyspnea on exertion, Reports orthopnea, Reports shortness of breath Respiratory: Reports cough, Reports dyspnea Gastrointestinal: Denies abdominal pain, Denies diarrhea, Denies nausea, Denies vomiting Genitourinary: Reports urge incontinence, Reports urinary frequency Musculoskeletal: Reports limitation of motion, Reports muscle weakness Musculoskeletal: bilateral: ankle pain, ankle stiffness, ankle swelling Integumentary: Denies pruritus, Denies rash Neurological: Reports numbness, Reports paralysis, Reports weakness Psychiatric: Denies anxiety, Denies depression Endocrine: Denies fatigue, Denies weight change Past Medical History Past Medical History: Heart Failure, COPD, GERD/Reflux, Hyperlipidemia, Hypertension, Musculoskeletal Disorder, Neurologic Disorder, Osteoarthritis (OA) , Sleep Apnea/CPAP/BIPAP, Thyroid Disorder Additional Past Medical History / Comment(s): COPD, hypertension, obstructive sleep apnea on BiPAP at nighttime, chronic pain, gastric esophageal reflux disease, hypothyroidism, ALLERGIC rhinitis, osteoarthritis, idiopathic peripheral autonomic neuropathy, chronic urinary tract infections, vitamin D deficiency, morbid obesity, acid reflux, chronic contractures and deformities in the upper and lower extremities mainly wrists and ankles and feet, osteoarthritis, generalized anxiety disorder, previous history of urinary tract infection, depression, idiopathic peripheral autonomic neuropathy, previous history of urosepsis with prolonged ventilator dependent respiratory failure. History of Any Multi-Drug Resistant Organisms: Unobtainable Past Surgical History: Appendectomy, Orthopedic Surgery Additional Past Surgical History / Comment(s): PEG tube and trach placement with removal, left hip arthroplasty in 1995, insertion and removal of a tracheostomy tube. Past Psychological History: Anxiety, Depression Smoking Status: Former smoker Past Alcohol Use History: None Reported Additional Past Alcohol Use History / Comment(s): Patient was a smoker 3 packs per day for 38 years and quit in 1983. She has had alcohol use in the past. 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 Past Drug Use History: None Reported - Past Family History Father Additional Family Medical History / Comment(s): at age 58 from a fall and head injury. Mother Additional Family Medical History / Comment(s): Mother at age 70 from a CVA. Brother(s) Additional Family Medical History / Comment(s): Patient has one brother with no major medical problems. Sister(s) Additional Family Medical History / Comment(s): Patient has one sister with no major medical problems. Daughter(s) Additional Family Medical History / Comment(s): Patient has 2 daughters no major medical problems. Medications and Allergies Home Medications Medication Instructions Recorded Confirmed Type ALPRAZolam [Xanax] 0.25 mg PO BID PRN 01/12/17 01/12/17 History Acetaminophen Tab [Tylenol Tab] 500 mg PO Q6H PRN MDD 4000MG PER 01/12/17 History 24HR Aspirin 81 mg PO DAILY 01/12/17 01/12/17 History Calcium Carb-Vit D 500Mg-200Un 1 tab PO BID 01/12/17 01/12/17 History [Oscal 500+D] Cholecalciferol [Vitamin D3] 2,000 unit PO DAILY 01/12/17 01/12/17 History DULoxetine HCL [Cymbalta] 60 mg PO BID 01/12/17 01/12/17 History Dimethicone/Zinc Oxide [Inzo Zinc 1 applic TOPICAL DIRECTED PRN 01/12/17 History Oxide Barrier Cream] Dimethicone/Zinc Oxide [Inzo Zinc 1 applic TOPICAL Q12H 01/12/17 01/12/17 History Oxide Barrier Cream] Docusate [Colace] 100 mg PO DAILY PRN 01/12/17 01/12/17 History Escitalopram [Lexapro] 10 mg PO DAILY 01/12/17 01/12/17 History Gabapentin [Neurontin] 200 mg PO BID 01/12/17 01/12/17 History Hydrocodone/Acetaminophen [[place] 1 tab PO BID 01/12/17 01/12/17 History 7.5-325] Hydrocodone/Acetaminophen [[place] 1 tab PO Q6HR PRN 01/12/17 01/12/17 History 7.5-325] Ipratropium-Albuterol Nebulize 3 ml INHALATION RT-Q4H PRN 01/12/17 01/12/17 History [Duoneb 0.5 mg-3 mg/3 ml Soln] Levothyroxine Sodium [Synthroid] 125 mcg PO DAILY 01/12/17 01/12/17 History Lidocaine 5% Patch [Lidoderm] 1 patch TOPICAL DAILY@1800 01/12/17 01/12/17 History Loratadine [Claritin] 10 mg PO DAILY 01/12/17 01/12/17 History Magnesium Hydroxide [Milk of 2,400 mg PO DAILY PRN 01/12/17 01/12/17 History Magnesia] Metoprolol Succinate [Toprol XL] 25 mg PO DAILY 01/12/17 01/12/17 History Multivits,Th W-Ca,Fe,Oth Min 1 tab PO DAILY 01/12/17 01/12/17 History [Therapeutic M] Nystatin 100,000Unit/gm Cream 1 applic TOPICAL Q12H 01/12/17 01/12/17 History [Mycostatin Cream] Omeprazole [PriLOSEC] 20 mg PO AC-BRKFST 01/12/17 01/12/17 History Ondansetron HCl [Zofran] 4 mg PO Q6H PRN 01/12/17 01/12/17 History Polyethylene Glycol 3350 [Miralax] 17 gm PO DAILY PRN 01/12/17 01/12/17 History QUEtiapine [SEROquel] 50 mg PO HS 01/12/17 01/12/17 History Sodium Chloride [Saline Mist] 2 spray EA NOSTRIL DIRECTED PRN 01/12/17 History Topiramate [Topamax] 50 mg PO BID 01/12/17 01/12/17 History amLODIPine [Norvasc] 5 mg PO DAILY 01/12/17 01/12/17 History Allergies Allergy/AdvReac Type Severity Reaction Status Date / Time metronidazole [From Flagyl] Allergy Unknown Verified 01/12/17 15:50 Physical Exam Vitals: Vital Signs Temp Pulse Pulse Resp BP BP Pulse Ox 01/13/17 08:37 98.6 F 89 18 152/65 94 L 01/13/17 08:34 98.6 F 89 18 152/65 94 L 01/13/17 08:00 98.3 F 88 18 143/79 90 L 01/13/17 04:00 98.3 F 85 18 129/79 94 L 01/13/17 00:00 82 20 01/12/17 23:50 98.4 F 82 20 122/54 96 01/12/17 23:38 98.4 F 82 20 122/54 96 01/12/17 22:13 80 18 112/54 96 01/12/17 20:56 99.4 F 84 20 118/52 93 L 01/12/17 19:46 99.3 F 79 20 123/77 93 L 01/12/17 18:33 85 18 110/57 97 01/12/17 18:13 98.8 F 86 18 101/57 94 L 01/12/17 17:03 97 20 97/53 95 01/12/17 15:50 99.5 F 87 20 96/55 96 Intake and Output 01/12/17 01/13/17 01/13/17 22:59 06:59 14:59 Intake Total 1900 337 Output Total 500 Balance -500 1900 337 Intake: IV 1900 Piperacillin-Tazobactam 3 50 .375 gm In Dextrose/Water 1 50ml.bag @ 12.5 mls/hr IVPB ONCE STA Rx#: [id number] Sodium Chloride 0.9% 1, 1600 000 ml @ 100 mls/hr IV . Q10H MARLA Rx#:[id number] Vancomycin 1,750 mg In 250 Sodium Chloride 0.9% 250 ml @ 125 mls/hr IVPB ONCE STA Rx#:[id number] Oral 337 Output: Urine 500 Straight 500 Other: Voiding Method Diaper Incontinent Weight 106.594 kg 106 kg Morbidly obese, calm and comfortable, nonacute distress. She is resting comfortably in bed. Head exam was generally normal. There was no scleral icterus or corneal arcus. Mucous membranes were moist. Neck is supple and short and the patient has significant crowding of the posterior oropharynx and the scar of previous tracheostomy tube insertion is seen over the anterior neck. Lung sounds are diminished in lung bases. There are some bibasilar crackles. No wheezes or rhonchi.Cardiac exam revealed the PMI to be normally situated and sized. The rhythm was regular and no extrasystoles were noted during several minutes of auscultation. The first and second heart sounds were normal and physiologic splitting of the second heart sound was noted. There were no murmurs, rubs, clicks, or gallops. Abdomen is morbidly obese soft nontender. No direct tenderness rebound tensile guarding. Organs cannot be accurately palpated. No ascites. Extremities show chronic edema and chronic deformities in the ankles, feet, and the wrist and the fingers bilaterally. The patient has no open wounds or sores. Sensation is diminished. Motor function in the lower extremity 0-5, 3 out of 5 in the upper extremity. Neurologically, the patient is awake and alert and following commands and answering questions appropriately. Results - Laboratory Findings CBC and BMP: 01/12/17 15:49 01/12/17 15:49 PT/INR, D-dimer PT 10.6 sec (9.0-12.0) 01/12/17 15:49 INR 1.0 (<1.2) 01/12/17 15:49 Abnormal lab findings: Abnormal Labs 01/12/17 01/12/17 01/12/17 15:49 15:49 18:09 WBC 18.1 H RBC 3.38 L Hgb 9.7 L Hct 31.6 L MCHC 30.7 L RDW 16.4 H Neutrophils # 16.7 H Lymphocytes # 0.6 L VBG pCO2 VBG HCO3 Sodium 129 L Chloride 87 L Carbon Dioxide 33 H BUN 34 H Creatinine 1.10 H Albumin 3.2 L Urine Protein 1+ H Urine Bilirubin 1+ H Urine Bacteria Occasional H Urine Mucus Rare H 01/12/17 19:20 WBC RBC Hgb Hct MCHC RDW Neutrophils # Lymphocytes # VBG pCO2 62 H VBG HCO3 32 H Sodium Chloride Carbon Dioxide BUN Creatinine Albumin Urine Protein Urine Bilirubin Urine Bacteria Urine Mucus - Diagnostic Findings Chest x-ray: image reviewed Assessment and Plan Plan: Assessment 1 right leg pulmonary infiltrate, with possible hospital-acquired pneumonia which is ongoing or chronic or recurrent. The patient is currently on a combination of Zosyn and vancomycin which give the patient adequate gram- negative and anaerobic coverage. We'll monitor chest x-ray. Aspiration precautions. Swallow evaluation was noted. 2 recent authorization for right lung pneumonia at [facility] in [place] 3 morbid obesity 4 bedridden, and the patient has not ambulated for the past 13 years at least. Chronic contracture deformity in lower extremities and upper extremities bilaterally. 5 history of urine checked infection 6 hypertension 7 hyperlipidemia 8 hypothyroidism 9 hepatic peripheral neuropathy 10 depression 11 anxiety disorder 12 acid reflux 13 his history of urosepsis and prolonged respiratory failure due to complications of sepsis requiring insertion and subsequent removal of tracheostomy tube. 14 chronic normocytic anemia Plan Agree on the current antibiotic coverage. Aspiration precautions. No need for bronchoscopy. Provide patient incentive spirometer. We'll continue to follow. Collect a sputum sample if possible.
[2017-01-13] MEDS: VANCOMYCIN 1,750 MG in SODIUM CHLORIDE 0.9% 250 ML IVPB SCH (18:04)
[2017-01-13] MEDS: LIDOCAINE 5% PATCH TOPICAL SCH (18:05)
[2017-01-13] MEDS: NYSTATIN 100,000UNIT/GM CREAM 30 GM TUBE TOPICAL SCH (20:56)
[2017-01-13] MEDS: HYDROcodone/APAP 7.5-325MG 1 EACH TAB PO SCH (20:56)
[2017-01-13] MEDS: DOCUSATE 100 MG CAP PO PRN (20:56)
[2017-01-13] MEDS: CALCIUM CARB-VIT D 500MG-200UN 1 EACH TAB PO SCH (20:57)
[2017-01-13] MEDS: QUEtiapine 50 MG TAB PO SCH (20:57)
[2017-01-14] MEDS: SODIUM CHLORIDE 0.9% 1,000 ML IV SCH ×3 (01:59→21:50)
[2017-01-14] MEDS: PIPERACILLIN-TAZOBACTAM 3.375 GM in DEXTROSE/WATER 1 50ML.BAG IVPB SCH ×3 (05:24→20:01)
[2017-01-14] MEDS: LEVOTHYROXINE 125 MCG TAB PO SCH (06:32)
[2017-01-14] MEDS: PANTOPRAZOLE 40 MG TABLET PO SCH (06:32)
[2017-01-14 06:53] LABS: Anion Gap 8 mmol/L; Blood Urea Nitrogen 26 mg/dL (7-17); Calcium 8.3 mg/dL (8.4-10.2); Carbon Dioxide 30 mmol/L (22-30); Chloride 99 mmol/L (98-107); Glucose 80 mg/dL (74-99); Non-African American GFR(MDRD) 53 (>60 ml/min/1.73 sqM); Potassium 3.8 mmol/L (3.5-5.1); Sodium 137 mmol/L (137-145)
[2017-01-14] MEDS: IPRATROPIUM-ALBUTEROL 3 ML NEB INHALATION SCH ×4 (08:01→20:16)
[2017-01-14] MEDS: DULoxetine HCL 60 MG CAPSULE.DR PO SCH ×2 (09:04→20:00)
[2017-01-14] MEDS: ENOXAPARIN 40 MG/0.4 ML SYRINGE SQ SCH (09:04)
[2017-01-14] MEDS: ASPIRIN 81 MG CHEW PO SCH (09:04)
[2017-01-14] MEDS: CALCIUM CARB-VIT D 500MG-200UN 1 EACH TAB PO SCH ×2 (09:04→20:00)
[2017-01-14] MEDS: METOPROLOL SUCCINATE (ER) 25 MG TAB.ER.24H PO SCH (09:05)
[2017-01-14] MEDS: GABAPENTIN 100 MG CAP PO SCH ×2 (09:05→20:00)
[2017-01-14] MEDS: CHOLECALCIFEROL 1,000 UNIT TAB PO SCH (09:05)
[2017-01-14] MEDS: TOPIRAMATE 25 MG TAB PO SCH ×2 (09:05→20:00)
[2017-01-14] MEDS: LORATADINE 10 MG TAB PO SCH (09:05)
[2017-01-14] MEDS: ESCITALOPRAM 10 MG TAB PO SCH (09:05)
[2017-01-14] MEDS: NYSTATIN 100,000UNIT/GM CREAM 30 GM TUBE TOPICAL SCH ×2 (09:06→23:31)
[2017-01-14] MEDS: FUROSEMIDE 10 MG/ML 4 ML VIAL IV SCH (09:07)
[2017-01-14] MEDS: HYDROcodone/APAP 7.5-325MG 1 EACH TAB PO SCH ×2 (09:12→20:01)
--- NOTE | 2017-01-14 09:22 | P.CRDCN ---
History of Present Illness Consult date: 01/14/17 Requesting physician: Agustin Vega Consult reason: congestive heart failure Chief complaint: Shortness of breath and productive cough History of present illness: This is a pleasant 76-year-old female who resides at [facility] on [facility]. She has a history of hypertension, sleep apnea, COPD, hypothyroidism, idiopathic peripheral autonomic neuropathy, chronic urinary tract infections and morbid obesity. She's admitted to the hospital with symptoms of productive cough of yellow E green sputum as well as increase in shortness of breath. 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 Patient was also hypotensive on admission and received 1 L of IV fluid. EKG on presentation here showed a normal sinus rhythm with occasional PVC. White blood cell count on admission 18.1, hemoglobin 9.7, sodium on admission 129, 137 this morning, potassium 4.9 on admission, 3.8 this morning. BUN 34, creatinine 1.1 on admission, 26 and 1.0 this morning. Troponin 0.028, BNP level 18,000. She was initiated on IV antibiotics as well as IV Lasix in the emergency room. At pressure this morning 130/50 with a heart rate in the 80s. At the time of my examination this morning, patient is sleepy, denies any shortness of breath, mild cough. Past Medical History Past Medical History: Heart Failure, COPD, GERD/Reflux, Hyperlipidemia, Hypertension, Musculoskeletal Disorder, Neurologic Disorder, Osteoarthritis (OA) , Sleep Apnea/CPAP/BIPAP, Thyroid Disorder Additional Past Medical History / Comment(s): COPD, hypertension, obstructive sleep apnea on BiPAP at nighttime, chronic pain, gastric esophageal reflux disease, hypothyroidism, ALLERGIC rhinitis, osteoarthritis, idiopathic peripheral autonomic neuropathy, chronic urinary tract infections, vitamin D deficiency, morbid obesity, acid reflux, chronic contractures and deformities in the upper and lower extremities mainly wrists and ankles and feet, osteoarthritis, generalized anxiety disorder, previous history of urinary tract infection, depression, idiopathic peripheral autonomic neuropathy, previous history of urosepsis with prolonged ventilator dependent respiratory failure. History of Any Multi-Drug Resistant Organisms: Unobtainable Past Surgical History: Appendectomy, Orthopedic Surgery Additional Past Surgical History / Comment(s): PEG tube and trach placement with removal, left hip arthroplasty in 1995, insertion and removal of a tracheostomy tube. Past Psychological History: Anxiety, Depression Smoking Status: Former smoker Past Alcohol Use History: None Reported Additional Past Alcohol Use History / Comment(s): Patient was a smoker 3 packs per day for 38 years and quit in 1983. She has had alcohol use in the past. 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 Past Drug Use History: None Reported - Past Family History Father Additional Family Medical History / Comment(s): at age 58 from a fall and head injury. Mother Additional Family Medical History / Comment(s): Mother at age 70 from a CVA. Brother(s) Additional Family Medical History / Comment(s): Patient has one brother with no major medical problems. Sister(s) Additional Family Medical History / Comment(s): Patient has one sister with no major medical problems. Daughter(s) Additional Family Medical History / Comment(s): Patient has 2 daughters no major medical problems. Medications and Allergies Home Medications Medication Instructions Recorded Confirmed Type ALPRAZolam [Xanax] 0.25 mg PO BID PRN 01/12/17 01/12/17 History Acetaminophen Tab [Tylenol Tab] 500 mg PO Q6H PRN MDD 4000MG PER 01/12/17 History 24HR Aspirin 81 mg PO DAILY 01/12/17 01/12/17 History Calcium Carb-Vit D 500Mg-200Un 1 tab PO BID 01/12/17 01/12/17 History [Oscal 500+D] Cholecalciferol [Vitamin D3] 2,000 unit PO DAILY 01/12/17 01/12/17 History DULoxetine HCL [Cymbalta] 60 mg PO BID 01/12/17 01/12/17 History Dimethicone/Zinc Oxide [Inzo Zinc 1 applic TOPICAL DIRECTED PRN 01/12/17 History Oxide Barrier Cream] Dimethicone/Zinc Oxide [Inzo Zinc 1 applic TOPICAL Q12H 01/12/17 01/12/17 History Oxide Barrier Cream] Docusate [Colace] 100 mg PO DAILY PRN 01/12/17 01/12/17 History Escitalopram [Lexapro] 10 mg PO DAILY 01/12/17 01/12/17 History Gabapentin [Neurontin] 200 mg PO BID 01/12/17 01/12/17 History Hydrocodone/Acetaminophen [[place] 1 tab PO BID 01/12/17 01/12/17 History 7.5-325] Hydrocodone/Acetaminophen [[place] 1 tab PO Q6HR PRN 01/12/17 01/12/17 History 7.5-325] Ipratropium-Albuterol Nebulize 3 ml INHALATION RT-Q4H PRN 01/12/17 01/12/17 History [Duoneb 0.5 mg-3 mg/3 ml Soln] Levothyroxine Sodium [Synthroid] 125 mcg PO DAILY 01/12/17 01/12/17 History Lidocaine 5% Patch [Lidoderm] 1 patch TOPICAL DAILY@1800 01/12/17 01/12/17 History Loratadine [Claritin] 10 mg PO DAILY 01/12/17 01/12/17 History Magnesium Hydroxide [Milk of 2,400 mg PO DAILY PRN 01/12/17 01/12/17 History Magnesia] Metoprolol Succinate [Toprol XL] 25 mg PO DAILY 01/12/17 01/12/17 History Multivits,Th W-Ca,Fe,Oth Min 1 tab PO DAILY 01/12/17 01/12/17 History [Therapeutic M] Nystatin 100,000Unit/gm Cream 1 applic TOPICAL Q12H 01/12/17 01/12/17 History [Mycostatin Cream] Omeprazole [PriLOSEC] 20 mg PO AC-BRKFST 01/12/17 01/12/17 History Ondansetron HCl [Zofran] 4 mg PO Q6H PRN 01/12/17 01/12/17 History Polyethylene Glycol 3350 [Miralax] 17 gm PO DAILY PRN 01/12/17 01/12/17 History QUEtiapine [SEROquel] 50 mg PO HS 01/12/17 01/12/17 History Sodium Chloride [Saline Mist] 2 spray EA NOSTRIL DIRECTED PRN 01/12/17 History Topiramate [Topamax] 50 mg PO BID 01/12/17 01/12/17 History amLODIPine [Norvasc] 5 mg PO DAILY 01/12/17 01/12/17 History Allergies Allergy/AdvReac Type Severity Reaction Status Date / Time metronidazole [From Flagyl] Allergy Unknown Verified 01/12/17 15:50 Physical Exam Vitals: Vital Signs Temp Pulse Pulse Resp BP Pulse Ox 01/14/17 08:14 88 01/14/17 08:01 88 01/14/17 03:57 97.7 F 85 20 102/58 90 L 01/14/17 00:00 97.7 F 95 18 122/56 90 L 01/13/17 21:26 99 18 01/13/17 20:40 98.7 F 99 18 146/67 94 L 01/13/17 20:29 96 01/13/17 20:17 96 01/13/17 16:00 98.9 F 101 H 16 140/89 01/13/17 15:43 92 01/13/17 15:33 90 01/13/17 12:00 98.8 F 93 18 107/51 95 Intake and Output 01/13/17 01/14/17 01/14/17 22:59 06:59 14:59 Intake Total 237 Output Total 2 Balance 237 -2 Intake: Oral 237 Output: Urine/Stool Mix 2 Other: Voiding Method Diaper Diaper Incontinent Incontinent # Voids 4 1 # Bowel Movements 1 PHYSICAL EXAMINATION: HEENT: Head is atraumatic, normocephalic. Pupils equal, round. Neck is supple. There is no elevated jugular venous pressure. HEART EXAMINATION: Heart S1 S2 1 systolic murmur is heard. CHEST EXAMINATION: Lungs are diminished bilaterally. Scattered wheezing throughout. ABDOMEN: Soft, obese, nontender. Bowel sounds are heard. No organomegaly noted. EXTREMITIES: 1+ peripheral pulses with evidence of peripheral edema and no calf tenderness noted. Patient has evidence of significant deformities in bilateral hands, right hand worse than left, contracted. Significant foot drop with edema to the left lower extremity mild to the right(paraparesis) NEUROLOGIC patient is awake, alert and oriented -3. . Results 01/12/17 15:49 01/14/17 05:42 Comprehensive Metabolic Panel 01/14/17 Range/Units 05:42 Sodium 137 (137-145) mmol/L Potassium 3.8 (3.5-5.1) mmol/L Chloride 99 (98-107) mmol/L Carbon Dioxide 30 (22-30) mmol/L BUN 26 H (7-17) mg/dL Creatinine 1.01 (0.52-1.04) mg/dL Glucose 80 (74-99) mg/dL Calcium 8.3 L (8.4-10.2) mg/dL Current Medications Generic Name Dose Route Start Last Admin Trade Name Freq PRN Reason Stop Dose Admin Acetaminophen 500 mg 01/13/17 10:55 01/13/17 12:54 Tylenol Tab PO 500 mg Q6H PRN Administration MILD Pain or Fever > 100.5 Hydrocodone Bitart/Acetaminophen 1 each 01/13/17 21:00 01/13/17 20:56 [place] 7.5-325 PO 1 each BID MARLA Administration Hydrocodone Bitart/Acetaminophen 1 each 01/13/17 10:55 [place] 7.5-325 PO Q6HR PRN MODERATE TO SEVERE Pain Albuterol/Ipratropium 3 ml 01/13/17 10:55 Duoneb 0.5 Mg-3 Mg/3 Ml Soln INHALATION RT-Q4H PRN SOB/WHEEZING Albuterol/Ipratropium 3 ml 01/13/17 12:00 01/14/17 08:01 Duoneb 0.5 Mg-3 Mg/3 Ml Soln INHALATION 3 ml RT-QID MARLA Administration Alprazolam 0.25 mg 01/13/17 10:55 Xanax PO BID PRN Anxiety Amlodipine Besylate 5 mg 01/14/17 09:00 Norvasc PO DAILY [facility] Aspirin 81 mg 01/13/17 11:30 01/13/17 12:40 Aspirin PO Not Given DAILY [facility] Calcium Carbonate 1 each 01/13/17 21:00 01/13/17 20:57 Oscal 500+D PO 1 each BID [facility] Administration Cholecalciferol 2,000 unit 01/14/17 09:00 Vitamin D3 PO DAILY [facility] Docusate Sodium 100 mg 01/13/17 10:55 01/13/17 20:56 Colace PO 100 mg DAILY PRN Administration Constipation Duloxetine HCl 60 mg 01/13/17 11:30 01/13/17 20:57 Cymbalta PO 60 mg BID [facility] Administration Enoxaparin Sodium 40 mg 01/13/17 11:30 01/13/17 12:49 Lovenox SQ 40 mg DAILY MARLA Administration Escitalopram Oxalate 10 mg 01/13/17 11:30 01/13/17 12:49 Lexapro PO 10 mg DAILY MARLA Administration Furosemide 40 mg 01/13/17 11:30 01/13/17 12:49 Lasix IV 40 mg DAILY MARLA Administration Gabapentin 200 mg 01/13/17 11:30 01/13/17 20:57 Neurontin PO 200 mg BID MARLA Administration Vancomycin HCl 1,750 mg/ 250 mls @ 125 mls/hr 01/13/17 16:00 01/13/17 18:04 Sodium Chloride IVPB 125 mls/hr Q24H MARLA Administration Sodium Chloride 1,000 mls @ 100 mls/hr 01/12/17 19:45 01/14/17 01:59 Saline 0.9% IV 100 mls/hr .Q10H MARLA Administration Piperacillin/Tazobactam/ 50 mls @ 12.5 mls/hr 01/14/17 05:00 01/14/17 05:24 Dextrose 3.375 gm/ IV Solution IVPB 12.5 mls/hr Q8H MARLA Administration Levothyroxine Sodium 125 mcg 01/14/17 06:30 01/14/17 06:32 Synthroid PO 125 mcg DAILY@0630 [facility] Administration Lidocaine 1 patch 01/13/17 18:00 01/13/17 18:05 Lidoderm TOPICAL 1 patch DAILY@1800 [facility] Administration Loratadine 10 mg 01/14/17 09:00 Claritin PO DAILY [facility] Magnesium Hydroxide 2,400 mg 01/13/17 10:55 Milk Of Magnesia PO DAILY PRN Constipation Metoprolol Succinate 25 mg 01/13/17 09:00 01/13/17 12:48 Toprol Xl PO 25 mg DAILY [facility] Administration Multi-Ingred Cream/Lotion/Oil/Oint 1 applic 01/13/17 10:55 Eucerin Cream TOPICAL DIRECTED PRN PREVENTION Multivitamins 1 each 01/14/17 12:00 Theragran PO DAILY@1200 MARLA Naloxone HCl 0.2 mg 01/12/17 19:37 Narcan IV Q2M PRN Opioid Reversal Nystatin 1 applic 01/13/17 21:00 01/13/17 20:56 Mycostatin Cream TOPICAL 1 applic Q12H MARLA Administration Ondansetron HCl 4 mg 01/13/17 10:55 Zofran PO Q6H PRN Nausea Pantoprazole Sodium 40 mg 01/14/17 07:30 01/14/17 06:32 Protonix PO 40 mg AC-BRKFST MARLA Administration Polyethylene Glycol 17 gm 01/13/17 10:55 Miralax PO DAILY PRN Constipation Quetiapine Fumarate 50 mg 01/13/17 21:00 01/13/17 20:57 Seroquel PO 50 mg HS MARLA Administration Topiramate 50 mg 01/13/17 11:30 01/13/17 20:57 Topamax PO 50 mg BID MARLA Administration Intake and Output 01/13/17 01/14/17 01/14/17 22:59 06:59 14:59 Intake Total 237 Output Total 2 Balance 237 -2 Intake: Oral 237 Output: Urine/Stool Mix 2 Other: Voiding Method Diaper Diaper Incontinent Incontinent # Voids 4 1 # Bowel Movements 1 01/12/17 15:49 01/14/17 05:42 EKG Interpretations (text) EKG shows a normal sinus rhythm with occasional PVC and nonspecific ST-T wave changes Assessment and Plan Plan: Assessment and plan #1 symptoms of shortness of breath with associated productive cough of yellow to green sputum. Evidence of right lower lobe pneumonia with right-sided effusion associated sepsis. #2 diastolic congestive heart failure acute on chronic #3 recent history of HCAP and UTI with sepsis #4 hypertension Number 5 hyperlipidemia #6 hypothyroidism #7 peripheral neuropathy #8 osteoarthritis with significant joint deformities #9 anxiety disorder Plan From cardiology's perspective, we will recommend to continue IV Lasix. We will obtain an echocardiogram with Doppler study. Further recommendations will be based on these findings and the patient's clinical course. DNP note has been reviewed, I agree with a documented findings and plan of care. Patient was seen and examined.
--- NOTE | 2017-01-14 10:14 | CDI ---
In responding to this query, please exercise your independent professional judgment. The [facility] Coding Staff and Clinical Documentation Specialists appreciate your assistance in clarifying documentation, maintaining compliance with coding guidelines, accurately documenting patients condition and capturing severity of illness. The fact that a question is asked does not imply that any particular answer is desired or expected. Communication forms are a method of clarifying documentation and are not made part of the Legal Health Record. Thank you in advance for your clarification. Last Revision, July 2015 Timothy Marley [address] [facility] [place] [address] Documentation Clarification Form Date: 01/14/2017 9:48:00 AM From: Bhavani Love RN, CDS Admit Date: 01/12/2017 7:37:00 PM Patient Name: Marti Garcia Visit Number: [id number] Dr. Agustin Vega, 76 year old patient presented with Altered Mental Status and was admitted for Sepsis, Pneumonia and Acute on Chronic Diastolic CHF. Patient has been bed bound for 13 years after prolonged respiratory failure due to complications of sepsis requiring insertion and subsequent removal of tracheostomy tube. "Acute Respiratory insufficiency secondary to right lower lobe pneumonia" per H&P History/Risk Factors: recent outside hospital admission for Sepsis/pneumonia/UTI , COPD, respiratory failure 13 years ago, uses BIPAP at night for PALMIRA, Clinical Indicators: ABG: pH 7.34 pCO 62 hco3 32, VS: 99.5 87 20 96/55 96/6L, CO2 33, CXR: "right lower lobe infiltrate, small right pleural effusion" Lung sound diminished per Nursing with rhonchi noted 01/13 Treatment: Pulmonary consult, Duoneb, O2 to keep sat >92% decreased from 6L-4L currently, IV Vanco, Zosyn In your professional opinion, can you please clarify if these findings signify one of the following conditions? Acuity: Acute Chronic Acute on Chronic Respiratory Status: Respiratory failure Respiratory failure with hypercapnia Respiratory failure with hypoxia Acute Respiratory Distress Other Diagnosis, please specify o Unable to determine Please document in your progress notes and discharge summary in order to capture severity of illness and risk of mortality. Include clinical findings that support your diagnosis. FYI: Press F11 to launch patient chart. Thank you. Acute on chronic respiratory failure with hypoxia. LINDSEY
--- NOTE | 2017-01-14 10:28 | CDI ---
In responding to this query, please exercise your independent professional judgment. The [facility] Coding Staff and Clinical Documentation Specialists appreciate your assistance in clarifying documentation, maintaining compliance with coding guidelines, accurately documenting patients condition and capturing severity of illness. The fact that a question is asked does not imply that any particular answer is desired or expected. Communication forms are a method of clarifying documentation and are not made part of the Legal Health Record. Thank you in advance for your clarification. Last Revision, March 2015 Timothy Marley [address] [place] [address] Documentation Clarification Form Date: 01/14/2017 10:17:00 AM From: Bhavani Love RN, CDS Admit Date: 01/12/2017 7:37:00 PM Patient Name: Marti Garcia Visit Number: [id number] Dr. Agustin Vega, 76 year old patient presented to ED for Altered Mental Status and increased reported weakness and inability to feed herself. She was admitted for Sepsis and Pneumonia. Risk factors: recent hospitalization for Sepsis/pneumonia/UTI, HTN, PALMIRA/Bipap, Chronic UTI, resides in extended care facility Clinical indicators: NA 129 on admission, currently 136 Treatment: NS bolus x2 in ED, NS@100 In order to capture the severity of condition, please clarify if the condition signifies: Hypovolemic Hyponatremia, present on admission Hypo-osmolar Hyponatremia, present on admission Unable to determine Other condition, please specify Please document in your progress notes and discharge summary in order to capture severity of illness and risk of mortality. Include clinical findings that support your diagnosis. FYI: Press F11 to launch patient chart. Thank you. Hypervolemic hyponatremia present on admission MTDD
--- NOTE | 2017-01-14 11:20 | ECHOF ---
Referral Reason:lvf MEASUREMENTS -------- HEIGHT: 170.2 cm WEIGHT: 105.7 kg BP: 152/65 RVIDd: 4.1 cm (< 3.3) IVSd: 1.2 cm (0.6 - 1.1) LVIDd: 2.5 cm (3.9 - 5.3) LVPWd: 1.0 cm (0.6 - 1.1) EDV(Teich): 23 ml IVSs: 1.7 cm LVIDs: 1.3 cm LVPWs: 1.5 cm %IVS Thck: 40 % ESV(Teich): 4 ml EF(Teich): 82 % %FS: 49 % SV(Teich): 19 ml Ao Diam: 3.1 cm (2.0 - 3.7) AV Cusp: 2.1 cm (1.5 - 2.6) LA Diam: 3.3 cm (2.7 - 3.8) MV EXCURSION: 18.048 mm (> 18.000) MV EF SLOPE: 59 mm/s (70 - 150) EPSS: 0.4 cm MV E Danie: 0.76 m/s MV DecT: 120 ms MV Dec [place]: 6.3 m/s MV A Danie: 0.91 m/s MV E/A Ratio: 0.83 MV PHT: 35 ms E/E': 23.42 E': 0.03 m/s MR Vmax: 5.08 m/s MR maxP.32 mmHg AV Vmax: 1.50 m/s AV maxP.98 mmHg TR Vmax: 4.66 m/s TR maxP.77 mmHg RAP: 5.00 mmHg RVSP: 91.77 mmHg FINDINGS -------- Sinus rhythm. This was a technically good study. There is mild concentric left ventricular hypertrophy. Overall left ventricular systolic function is normal with, an EF between 55 - 60 %. There is paradoxical/dysynergic septal motion consistent with right ventricular volume overload and/or elevated right ventricular end-diastolic pressure. The right ventricle is moderately enlarged. The left atrium is normal in size. The right atrium is normal in size. Aortic valve is trileaflet and is mildly thickened. The mitral valve leaflets are mildly thickened. Mild mitral annular calcification present. Mild mitral regurgitation is present. Severe tricuspid regurgitation present. There is severe pulmonary hypertension. The right ventricular systolic pressure, as measured by Doppler, is 91.77mmHg. Pulmonic valve appears structurally normal. The aortic root size is normal. The pericardium is normal. CONCLUSIONS -------- 1. Sinus rhythm. 2. The mitral valve leaflets are mildly thickened. 3. Mild mitral annular calcification present. 4. Mild mitral regurgitation is present. 5. Severe tricuspid regurgitation present. 6. There is severe pulmonary hypertension. 7. The right ventricular systolic pressure, as measured by Doppler, is 91.77mmHg. 8. Pulmonic valve appears structurally normal. 9. The aortic root size is normal. 10. The pericardium is normal. 11. This was a technically good study. 12. There is mild concentric left ventricular hypertrophy. 13. Overall left ventricular systolic function is normal with, an EF between 55 - 60 %. 14. There is paradoxical/dysynergic septal motion consistent with right ventricular volume overload and/or elevated right ventricular end-diastolic pressure. 15. The right ventricle is moderately enlarged. 16. The left atrium is normal in size. 17. The right atrium is normal in size. 18. Aortic valve is trileaflet and is mildly thickened. JOB PUTTER UP AND TICKET PREPARER: Lolis Fitzgerald RDCS
[2017-01-14] MEDS: MULTIVITAMINS, THERA 1 EACH TAB PO SCH (11:26)
[2017-01-14] MEDS: amLODIPine 5 MG TAB PO SCH (11:26)
--- NOTE | 2017-01-14 11:50 | P.PN ---
Subjective This is a 76-year-old female patient of Dr. Elizabeth currently residing at [facility] with past medical history COPD, hypertension, obstructive sleep apnea on BiPAP at nighttime, chronic pain, gastric esophageal reflux disease, hypothyroidism, ALLERGIC rhinitis, osteoarthritis, idiopathic peripheral autonomic neuropathy, chronic urinary tract infections, vitamin D deficiency, morbid obesity patient was recently hospitalized at the [facility] in [facility] with HCAP and acute UTI at that time she was treated with IV antibiotic and she was sent to [facility] on the [place] for physical therapy rehabilitation, patient has been coughing quite a bit of phlegm over the last few days with yellowish greenish phlegm her daughter came to check on her and she asked to be transferred to the emergency department at [facility] for evaluation of possible HCAP. 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 01/14: Echocardiogram reveals EF of 55-60% with mild concentric left ventricular hypertrophy, severe pulmonary hypertension, mild mitral regurgitation, severe tricuspid regurgitation. Patient has been seen and followed by Dr. Arita from pulmonary medicine and Dr. Aguilar from cardiology. She is continued on IV Lasix. Patient states that her breathing is better today. She denies having cough or sputum production. Lower extremity edema is improved. Objective - Vital Signs Vital signs: Vital Signs Temp 98.2 F 01/14/17 11:13 Pulse 88 01/14/17 11:32 Resp 16 01/14/17 11:13 BP 111/50 01/14/17 11:13 Pulse Ox 98 01/14/17 11:13 Intake & Output 01/13/17 01/14/17 01/14/17 18:59 06:59 18:59 Intake Total 911 Output Total 2 Balance 911 -2 Intake: Oral 911 Output: Urine/Stool Mix 2 Other: Voiding Method Diaper Diaper Diaper Incontinent Incontinent Incontinent # Voids 4 1 # Bowel Movements 1 - Exam General appearance: mild distress, obese - EENT Eyes: anicteric sclerae, EOMI, PERRLA, no ptosis, no scleral icterus, normal appearance ENT: hearing grossly normal, NA/AT, normal oropharynx, no thrush, no tonsillar exudates Ears: bilateral: normal - Neck Neck: no lymphadenopathy, normal ROM, no rigidity, no stridor, no thyromegaly Carotids: bilateral: upstroke delayed Thyroid: bilateral: normal size - Respiratory Respiratory: bilateral: diminished, negative: dullness, rales, rhonchi, wheezing , prolonged expiration, prolonged inspiration - Cardiovascular Rhythm: regular Heart sounds: normal: S1, S2 Abnormal Heart Sounds: systolic murmur, no rub, S3 Gallop, no click - Gastrointestinal General gastrointestinal: normal bowel sounds, soft, no splenomegaly, no tenderness, umbilical hernia, no ventral hernia - Integumentary Integumentary: normal, normal turgor - Neurologic Neurologic: focal deficits (bilateral lower extremity paraparesis.) - Musculoskeletal Musculoskeletal: no gait normal, generalized weakness - Psychiatric Psychiatric: A&O x's 3, no appropriate affect, intact judgment & insight - Labs CBC & Chem 7: 01/12/17 15:49 01/14/17 05:42 Labs: Abnormal Lab Results - Last 24 Hours (Table) 01/14/17 Range/Units 05:42 BUN 26 H (7-17) mg/dL Calcium 8.3 L (8.4-10.2) mg/dL Microbiology - Last 24 Hours (Table) 01/12/17 18:09 Urine Culture - Preliminary Urine,Catheterized Group D Enterococcus 01/12/17 15:49 Blood Culture - Preliminary Blood No Growth after 24 hours Assessment and Plan Plan: 1. Acute respiratory insufficiency (no failure) secondary to right lower lobe pneumonia with the right-sided effusion as well as acute on chronic diastolic heart failure. Continue Lasix 40 mg IV push every 24 hours, vancomycin 1 g pharmacy to dose, Zosyn 3.375 g IV piggyback every 8 hours, sputum culture, blood culture, urine culture, infectious disease consultation, pulmonary consultation, cardiology consultation, echocardiogram for evaluation of LV function, monitor magnesium, BUN and creatinine, monitor the patient the oxygenation, continue DuoNeb 3 mL nebulization 4 times every day. Monitor the patient weight on a daily basis. 2. Right lower lobe pneumonia with right-sided pleural effusion with sepsis. Continue oxygen support, continue Zosyn 3.375 g IV piggyback every 8 hours, continue DuoNeb 3 mL nebulization 4 times every day, pulmonary consultation. 3. Acute on chronic diastolic heart failure. Continue Toprol-XL 25 mg orally once every day, continue patient on Lasix 40 mg IV push every 24 hours, continue to monitor input and output and daily weight, echocardiogram to be done to evaluate LV function. 4. Recent history of HCAP and UTI with sepsis at [facility] in [place]. Continue treatment as in paragraph #1. 5. GERD. Continue Protonix 40 mg orally once every day. 6. Hypertension and hypertensive cardiovascular disease. Continue Toprol-XL 25 mg orally once every day, amlodipine 5 mg orally once every day. 7. Hyperlipidemia. Low-cholesterol diet. 8. Hypothyroidism. Continue Synthroid 125 g orally once every day. 9. Peripheral neuropathy. Continue gabapentin 200 mg orally twice every day. 10. Depressive disorder, recurrent. Continue patient on Cymbalta 60 mg orally once every day and Lexapro 10 mg orally once every day. 11. Osteoarthritis with joint deformities including the right hand as well as bilateral lower extremity's. 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 12. Anxiety disorder, generalized. Continue patient on Lexapro 10 mg orally once every day. 13. ALLERGIC rhinitis. Continue patient on Claritin 10 mg orally once every day. 14. DVT prophylaxis. Continue Lovenox 40 mg subcutaneously every 24 hours. 15. GI prophylaxis. Continue Protonix 40 mg orally once every day. 16. Hyponatremia, resolved. Discharge plan: Return to [facility]. Impression and plan of care have been directed as dictated by the signing physician. Mary Souza nurse practitioner acting as scribe for signing physician.
[2017-01-14] MEDS: VANCOMYCIN 1,750 MG in SODIUM CHLORIDE 0.9% 250 ML IVPB SCH (15:23)
--- NOTE | 2017-01-14 16:19 | CONS ---
CONSULTATION DATE OF SERVICE: 01/13/2017 REASON FOR CONSULTATION: Nosocomial pneumonia. HISTORY OF PRESENT ILLNESS: The patient is a 76-year-old, morbidly obese, female, who was recently admitted to [facility] for an episode of pneumonia. The patient's daughter did mention that she was there for a while and had finished her antibiotic therapy while at that facility. After stabilization the patient was sent to the [facility] on the [place] for rehabilitation. The patient was doing well until yesterday when apparently the patient also noticed to have altered mental status and weak. No clear history of any nausea or vomiting with some labored breathing. She did have some congested cough, but not brining up any sputum. No nausea, vomiting, or any diarrhea, or any significant chest pain. The patient was evaluated by the ER physician. The patient did have a chest x-ray that was suggestive of the right pleural effusion and right lower lobe infiltrate. The patient did have low grade fever of 99.5 though her white count was elevated at 18.1. The patient did have a UA that was negative. The patient was started on broad-spectrum antibiotics in the form of vancomycin and Zosyn and admitted to the hospital and ID was consulted for further recommendation regarding antibiotic therapy. REVIEW OF SYSTEMS: CONSTITUTIONAL: Positive for weakness. Denies any high-grade fever. EYES: No complaint. ENT: No complaint. RESPIRATORY: As per HPI. CARDIOVASCULAR: No complaint. GENITOURINARY: No complaint. GASTROINTESTINAL: No complaint. MUSCULOSKELETAL: No complaint. INTEGUMENTARY: No complaint. PSYCHOLOGICAL: No complaint. ENDOCRINE: No complaint. NEUROLOGICAL: No complaint. PAST MEDICAL HISTORY: Significant for heart failure, COPD, gastroesophageal reflux disease, hypertension, hyperlipidemia, osteoarthritis, sleep apnea, hypothyroidism, pneumonia, urinary tract infection. PAST SURGICAL HISTORY: Appendectomy, left hip arthroplasty, insertion and removal of tracheostomy tube, PEG tube placement removed. SOCIAL HISTORY: She used to smoke about 3 packs per day for almost 38 years and quit back in 1983. No drinking or drug use. FAMILY HISTORY: Father at age of 58 from fall with head injury. Mother at age of 70 from CVA. ALLERGIES: metronidazole. MEDICATIONS: The patient is currently on: 1. Tylenol. 2. [place]. 3. DuoNeb. 4. Xanax. 5. Norvasc. 6. Aspirin. 7. Os-Norm with vitamin D3. 8. Colace. 9. Cymbalta. 10.Zosyn. 11.Vancomycin, pharmacy to dose. EXAMINATION: Blood pressure 146/65, pulse of 99, temperature 98.7. She is 94% on 4 L nasal cannula. General description is an elderly female lying in bed in no distress. HEENT: Shows slight pallor. No scleral icterus. Oral mucosa slightly dry. NECK: Trachea central. No thyromegaly. LUNGS: Unlabored breathing. Decreased breath sounds at the bases. No wheeze. HEART: S1, S2. Regular rate and rhythm. ABDOMEN: Soft. No tenderness. No guarding. No rigidity. EXTREMITIES: Chronic swelling. No open wounds. No redness. NEUROLOGIC: The patient is awake, alert, oriented x2. Mood and affect normal. LAB: Hemoglobin is 9.7, white count of 18.1, BUN of 34 with creatinine 1.1. The sodium was 129. Liver enzymes are normal. Urine is negative. Chest x-ray report as mentioned above. DIAGNOSTIC IMPRESSION: Patient admitted to the hospital with mental status changes. The patient also noted to have some congested cough with right middle lobe infiltrate with question of pneumonia not entirely excluded in a patient who was recently admitted to an outside facility and treated for pneumonia with question of possible nosocomial pathogen. PLAN: 1. Will try to obtain sputum for Gram stain, culture and sensitivity. 2. The patient will continue on Zosyn and vancomycin. They would provide adequate coverage for underlying nosocomial pathogen. 3. Will follow up on clinical condition with cultures to further adjust medications as needed. Thank you for this consultation. Will follow this patient along with you. MMODL / IJN: [id number] /
--- NOTE | 2017-01-14 17:53 | P.PN ---
Subjective This is a 76-year-old morbidly obese female patient who was the left debilitated following a bout of urosepsis that was complicated by prolonged ventilator-dependent history failure around 13 years ago. Since then the patient has been bedridden, significantly debilitated, has crippling deformities both in upper and lower extremities and she has not ambulated. She was living in a custodial in the [place] area. More recently the patient underwent her hospitalization at [facility]. She was given a diagnosis of a pneumonia involving the right lower lobe. Hospital- acquired pneumonia was suspected and the patient was treated with antibiotics and due to proximity to her daughter's house the patient got moved to [facility] on the [place]. Yesterday, the patient got transferred from the custodial to the emergency department as the patient was having some difficulties in breathing, her pulse ox was around 87-89% on 5 L of oxygen by nasal cannula, her blood sugar was 168 , her temperature was 98.6 and her respiration was 18 with a blood pressure of 100/52. Pneumonia was suspected. The patient was having also some minimal congested cough. She was brought into the emergency department where a chest x- ray was done and showed a infiltration of the right lung and a small right- sided pleural effusion and right lower lobe pulmonary infiltrate. There was also cardiomegaly. The patient was started on a combination of Zosyn and vancomycin. She is comfortable for now. She utilizes a CPAP/BiPAP machine at the custodial and this was given to her at the time of discharge from [facility], andstudy was done and she qualified to this apparatus by a blood gases that showed hypercapnia. 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 The patient has some minimal residual weakness on the left. No difficulties with speech. No difficulties with swallowing. No fever or chills. No hemoptysis. No pleurisy. Chronic edema lower extremities without any open wounds, ulcers at this point. The patient is seen again today 01/14/2017 in follow-up on the selective care unit. She is awake and alert in no acute distress. She is maintaining good O2 saturations the upper 90s on 4 L/m per nasal cannula. She denies any worsening shortness of breath. She has a loose nonproductive cough. No chills or night sweats. She's been afebrile. Hemodynamically stable. Her urine culture is positive for group D enterococcus. She remains on Zosyn and vancomycin. Objective - Vital Signs Vital signs: Vital Signs Temp 98.3 F 01/14/17 15:20 Pulse 84 01/14/17 16:12 Resp 16 01/14/17 16:00 BP 134/59 01/14/17 15:20 Pulse Ox 97 01/14/17 15:20 Intake & Output 01/13/17 01/14/17 01/14/17 18:59 06:59 18:59 Intake Total 911 200 Output Total 2 Balance 911 -2 200 Intake: Oral 911 200 Output: Urine/Stool Mix 2 Other: Voiding Method Diaper Diaper Diaper Incontinent Incontinent Incontinent # Voids 4 1 # Bowel Movements 1 - Exam Morbidly obese, calm and comfortable, nonacute distress. She is resting comfortably in bed. Head exam was generally normal. There was no scleral icterus or corneal arcus. Mucous membranes were moist. Neck is supple and short and the patient has significant crowding of the posterior oropharynx and the scar of previous tracheostomy tube insertion is seen over the anterior neck. Lung sounds are diminished in lung bases. There are some bibasilar crackles. No wheezes or rhonchi.Cardiac exam revealed the PMI to be normally situated and sized. The rhythm was regular and no extrasystoles were noted during several minutes of auscultation. The first and second heart sounds were normal and physiologic splitting of the second heart sound was noted. There were no murmurs, rubs, clicks, or gallops. Abdomen is morbidly obese soft nontender. No direct tenderness rebound tensile guarding. Organs cannot be accurately palpated. No ascites. Extremities show chronic edema and chronic deformities in the ankles, feet, and the wrist and the fingers bilaterally. The patient has no open wounds or sores. Sensation is diminished. Motor function in the lower extremity 0-5, 3 out of 5 in the upper extremity. Neurologically, the patient is awake and alert and following commands and answering questions appropriately. - Labs CBC & Chem 7: 01/12/17 15:49 01/14/17 05:42 Labs: Abnormal Lab Results - Last 24 Hours (Table) 01/14/17 Range/Units 05:42 BUN 26 H (7-17) mg/dL Calcium 8.3 L (8.4-10.2) mg/dL Microbiology - Last 24 Hours (Table) 01/12/17 18:09 Urine Culture - Preliminary Urine,Catheterized Group D Enterococcus 01/12/17 15:49 Blood Culture - Preliminary Blood No Growth after 24 hours Assessment and Plan Plan: Assessment 1 right leg pulmonary infiltrate, with possible hospital-acquired pneumonia which is ongoing or chronic or recurrent. The patient is currently on a combination of Zosyn and vancomycin which give the patient adequate gram- negative and anaerobic coverage. We'll monitor chest x-ray. Aspiration precautions. Swallow evaluation was noted. 2 recent authorization for right lung pneumonia at [facility] in [place] 3 morbid obesity 4 bedridden, and the patient has not ambulated for the past 13 years at least. Chronic contracture deformity in lower extremities and upper extremities bilaterally. 5 history of urine checked infection 6 hypertension 7 hyperlipidemia 8 hypothyroidism 9 hepatic peripheral neuropathy 10 depression 11 anxiety disorder 12 acid reflux 13 his history of urosepsis and prolonged respiratory failure due to complications of sepsis requiring insertion and subsequent removal of tracheostomy tube. 14 chronic normocytic anemia Plan The patient was seen and evaluated by Dr. Arita. She is currently stable from the pulmonary standpoint. We'll continue with her current medications including antibiotics, bronchodilators, diuretics. We'll repeat her chest x- ray in the a.m. We will continue to follow.
[2017-01-14] MEDS: LIDOCAINE 5% PATCH TOPICAL SCH ×2 (18:17→20:01)
[2017-01-14] MEDS: QUEtiapine 50 MG TAB PO SCH (20:00)
--- NOTE | 2017-01-15 04:58 | PN ---
PROGRESS NOTE DATE OF SERVICE:: 01/14/2017 REASON FOR FOLLOWUP: Pneumonia. INTERVAL HISTORY: The patient is afebrile. She is breathing comfortably. Denies any significant chest pain. She did have some cough, but not bringing up any sputum. No abdominal pain or any diarrhea. PHYSICAL EXAMINATION: On examination, blood pressure is 111/50 with a pulse of 82, temperature 98.2. She is 98% on 4 L nasal cannula. General description is an elderly female, lying in bed, in no distress. RESPIRATORY SYSTEM: Unlabored breathing with decreased breath sounds at the bases. No wheeze. HEART: S1, S2. Regular rate and rhythm. ABDOMEN: Soft, no tenderness. EXTREMITIES: Some chronic swelling, no redness. LABS: BUN of 26, creatinine 1.01. No CBC was done today. Urine is showing enterococcus though the UA was not significantly positive. Blood cultures negative. DIAGNOSTIC IMPRESSION AND PLAN: 1. Patient admitted to the hospital with mental status changes, still likely multifactorial component of possible pneumonia, possible nosocomial. Patient is currently covered with broad-spectrum antibiotic in the form of vancomycin and Zosyn, this should provide adequate coverage for underlying pneumonia nosocomial pathogen. 2. Positive urine culture with enterococcus with corresponding negative, could be more likely contamination. MMODL / IJN: [id number] /
[2017-01-15] MEDS: PIPERACILLIN-TAZOBACTAM 3.375 GM in DEXTROSE/WATER 1 50ML.BAG IVPB SCH ×3 (05:16→20:15)
[2017-01-15] MEDS: SODIUM CHLORIDE 0.9% 1,000 ML IV SCH (05:17)
[2017-01-15 06:04] LABS: CH 27.5; CHCM 29.2; HCT 30.7 % (34.0-46.0); HDW 3.72; HGB 9.3 gm/dL (11.4-16.0); Hypochromasia Marked; MCH 28.7 pg (25.0-35.0); MCHC 30.2 g/dL (31.0-37.0); MCV 94.8 fL (80.0-100.0); Mean Platelet Volume 7.1; Poikilocytosis Slight; RBC 3.24 m/uL (3.80-5.40); RDW 15.8 % (11.5-15.5)
[2017-01-15 06:22] LABS: Anion Gap 9 mmol/L; Blood Urea Nitrogen 21 mg/dL (7-17); Carbon Dioxide 30 mmol/L (22-30); Chloride 98 mmol/L (98-107); Glucose 79 mg/dL (74-99); Non-African American GFR(MDRD) >60 (>60 ml/min/1.73 sqM); Potassium 3.9 mmol/L (3.5-5.1); Sodium 137 mmol/L (137-145)
[2017-01-15] MEDS: LEVOTHYROXINE 125 MCG TAB PO SCH (06:40)
[2017-01-15] MEDS: PANTOPRAZOLE 40 MG TABLET PO SCH (06:40)
--- NOTE | 2017-01-15 07:10 | XR ---
EXAMINATION TYPE: XR chest 1V portable DATE OF EXAM: 01/15/2017 CLINICAL HISTORY: Difficulty breathing progress study. TECHNIQUE: Single AP portable frontal view of the chest is obtained. COMPARISON: Chest x-ray from 2 days earlier FINDINGS: Osseous structures are demineralized. Advanced degenerative changes bilaterally glenohumer al joints could reflect product of Charcot type arthropathy. There is redemonstration of cardiomegaly with ectatic thoracic aorta. There is low lung volumes and c hronic parenchymal change with suspected small bilateral pleural effusions and right mid and lower moni ng opacity all redemonstrated. No sizable pneumothorax is evident bilaterally. Contrast from recent swallow study is seen in the visualized bowel loops of the abdomen. IMPRESSION: Overall stable findings, chronic parenchymal change and cardiomegaly with low lung volu mes and suspected tiny bilateral pleural effusions with right mid to lower lung atelectasis and/or in filtrate all redemonstrated.
[2017-01-15] MEDS: CALCIUM CARB-VIT D 500MG-200UN 1 EACH TAB PO SCH ×2 (08:05→20:17)
[2017-01-15] MEDS: amLODIPine 5 MG TAB PO SCH (08:05)
[2017-01-15] MEDS: ASPIRIN 81 MG CHEW PO SCH (08:05)
[2017-01-15] MEDS: ENOXAPARIN 40 MG/0.4 ML SYRINGE SQ SCH (08:06)
[2017-01-15] MEDS: DULoxetine HCL 60 MG CAPSULE.DR PO SCH ×2 (08:06→20:17)
[2017-01-15] MEDS: CHOLECALCIFEROL 1,000 UNIT TAB PO SCH (08:06)
[2017-01-15] MEDS: GABAPENTIN 100 MG CAP PO SCH ×2 (08:07→20:17)
[2017-01-15] MEDS: FUROSEMIDE 10 MG/ML 4 ML VIAL IV SCH (08:07)
[2017-01-15] MEDS: ESCITALOPRAM 10 MG TAB PO SCH (08:07)
[2017-01-15] MEDS: LORATADINE 10 MG TAB PO SCH (08:08)
[2017-01-15] MEDS: METOPROLOL SUCCINATE (ER) 25 MG TAB.ER.24H PO SCH (08:08)
[2017-01-15] MEDS: TOPIRAMATE 25 MG TAB PO SCH ×2 (08:08→20:16)
[2017-01-15] MEDS: MULTIVITAMINS, THERA 1 EACH TAB PO SCH (08:09)
[2017-01-15] MEDS: HYDROcodone/APAP 7.5-325MG 1 EACH TAB PO SCH ×2 (08:22→20:15)
[2017-01-15] MEDS: IPRATROPIUM-ALBUTEROL 3 ML NEB INHALATION SCH ×4 (09:33→21:22)
--- NOTE | 2017-01-15 12:21 | P.PN ---
Subjective This is a 76-year-old female patient of Dr. Elizabeth currently residing at [facility] with past medical history COPD, hypertension, obstructive sleep apnea on BiPAP at nighttime, chronic pain, gastric esophageal reflux disease, hypothyroidism, ALLERGIC rhinitis, osteoarthritis, idiopathic peripheral autonomic neuropathy, chronic urinary tract infections, vitamin D deficiency, morbid obesity patient was recently hospitalized at the [facility] in [facility] with HCAP and acute UTI at that time she was treated with IV antibiotic and she was sent to [facility] on the [place] for physical therapy rehabilitation, patient has been coughing quite a bit of phlegm over the last few days with yellowish greenish phlegm her daughter came to check on her and she asked to be transferred to the emergency department at [facility] for evaluation of possible HCAP. 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 01/14: Echocardiogram reveals EF of 55-60% with mild concentric left ventricular hypertrophy, severe pulmonary hypertension, mild mitral regurgitation, severe tricuspid regurgitation. Patient has been seen and followed by Dr. Arita from pulmonary medicine and Dr. Aguilar from cardiology. She is continued on IV Lasix. Patient states that her breathing is better today. She denies having cough or sputum production. Lower extremity edema is improved. 01/15: Urine culture is positive for VRE and started on daptomycin during the night. Discussed with Dr. Borrero as urinalysis was negative. No need for treatment and daptomycin will be discontinued. Patient will be continued on only Zosyn at this time. Lasix 40 mg daily will be changed to 20 mg orally daily. Patient states that she had a good night she slept okay during the night. Objective - Vital Signs Vital signs: Vital Signs Temp 98.7 F 01/14/17 20:00 Pulse 69 01/15/17 04:00 Resp 18 01/15/17 04:00 BP 115/53 01/15/17 04:00 Pulse Ox 96 01/15/17 04:00 Intake & Output 01/14/17 01/15/17 01/15/17 18:59 06:59 18:59 Intake Total 200 Output Total 1 Balance 200 -1 Weight 104.5 kg Intake: Oral 200 Output: Urine/Stool Mix 1 Other: Voiding Method Diaper Diaper Incontinent Incontinent # Voids 1 # Bowel Movements 1 - Exam General appearance: mild distress, obese - EENT Eyes: anicteric sclerae, EOMI, PERRLA, no ptosis, no scleral icterus, normal appearance ENT: hearing grossly normal, NA/AT, normal oropharynx, no thrush, no tonsillar exudates Ears: bilateral: normal - Neck Neck: no lymphadenopathy, normal ROM, no rigidity, no stridor, no thyromegaly Carotids: bilateral: upstroke delayed Thyroid: bilateral: normal size - Respiratory Respiratory: bilateral: diminished, negative: dullness, rales, rhonchi, wheezing , prolonged expiration, prolonged inspiration - Cardiovascular Rhythm: regular Heart sounds: normal: S1, S2 Abnormal Heart Sounds: systolic murmur, no rub, S3 Gallop, no click - Gastrointestinal General gastrointestinal: normal bowel sounds, soft, no splenomegaly, no tenderness, umbilical hernia, no ventral hernia - Integumentary Integumentary: normal, normal turgor - Neurologic Neurologic: focal deficits (bilateral lower extremity paraparesis.) - Musculoskeletal Musculoskeletal: no gait normal, generalized weakness - Psychiatric Psychiatric: A&O x's 3, no appropriate affect, intact judgment & insight - Labs CBC & Chem 7: 01/15/17 05:29 01/15/17 05:29 Labs: Abnormal Lab Results - Last 24 Hours (Table) 01/15/17 01/15/17 Range/Units 05:29 05:29 RBC 3.24 L (3.80-5.40) m/uL Hgb 9.3 L (11.4-16.0) gm/dL Hct 30.7 L (34.0-46.0) % MCHC 30.2 L (31.0-37.0) g/dL RDW 15.8 H (11.5-15.5) % BUN 21 H (7-17) mg/dL Calcium 8.0 L (8.4-10.2) mg/dL Microbiology - Last 24 Hours (Table) 01/12/17 18:09 Urine Culture - Final Urine,Catheterized Enterococcus faecium VRE 01/12/17 15:49 Blood Culture - Preliminary Blood No Growth after 48 hours Assessment and Plan Plan: 1. Acute respiratory insufficiency (no failure) secondary to right lower lobe pneumonia with the right-sided effusion as well as acute on chronic diastolic heart failure. Continue Lasix 20 mg oral every 24 hours, Zosyn 3.375 g IV piggyback every 8 hours, sputum culture, blood culture, urine culture, infectious disease consultation, pulmonary consultation, cardiology consultation , echocardiogram for evaluation of LV function, monitor magnesium, BUN and creatinine, monitor the patient the oxygenation, continue DuoNeb 3 mL nebulization 4 times every day. Monitor the patient weight on a daily basis. 2. Right lower lobe pneumonia with right-sided pleural effusion with sepsis. Continue oxygen support, continue Zosyn 3.375 g IV piggyback every 8 hours, continue DuoNeb 3 mL nebulization 4 times every day, pulmonary consultation. 3. Acute on chronic diastolic heart failure. Continue Toprol-XL 25 mg orally once every day, continue patient on Lasix 40 mg IV push every 24 hours, continue to monitor input and output and daily weight, echocardiogram to be done to evaluate LV function. 4. Recent history of HCAP and UTI with sepsis at [facility] in [place]. Continue treatment as in paragraph #1. 5. GERD. Continue Protonix 40 mg orally once every day. 6. Hypertension and hypertensive cardiovascular disease. Continue Toprol-XL 25 mg orally once every day, amlodipine 5 mg orally once every day. 7. Hyperlipidemia. Low-cholesterol diet. 8. Hypothyroidism. Continue Synthroid 125 g orally once every day. 9. Peripheral neuropathy. Continue gabapentin 200 mg orally twice every day. 10. Depressive disorder, recurrent. Continue patient on Cymbalta 60 mg orally once every day and Lexapro 10 mg orally once every day. 11. Osteoarthritis with joint deformities including the right hand as well as bilateral lower extremity's. 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 12. Anxiety disorder, generalized. Continue patient on Lexapro 10 mg orally once every day. 13. ALLERGIC rhinitis. Continue patient on Claritin 10 mg orally once every day. 14. DVT prophylaxis. Continue Lovenox 40 mg subcutaneously every 24 hours. 15. GI prophylaxis. Continue Protonix 40 mg orally once every day. 16. Hyponatremia, resolved. Discharge plan: Return to [facility]. Impression and plan of care have been directed as dictated by the signing physician. Mary Souza nurse practitioner acting as scribe for signing physician.
[2017-01-15] MEDS: NYSTATIN 100,000 UNIT/GM POWD 15 GM TOPICAL SCH ×3 (12:32→20:15)
[2017-01-15] MEDS: NYSTATIN 100,000UNIT/GM CREAM 30 GM TUBE TOPICAL SCH ×2 (12:33→20:17)
--- NOTE | 2017-01-15 13:30 | P.PN ---
Subjective This is a 76-year-old morbidly obese female patient who was the left debilitated following a bout of urosepsis that was complicated by prolonged ventilator-dependent history failure around 13 years ago. Since then the patient has been bedridden, significantly debilitated, has crippling deformities both in upper and lower extremities and she has not ambulated. She was living in a intermediate in the [place] area. More recently the patient underwent her hospitalization at [facility]. She was given a diagnosis of a pneumonia involving the right lower lobe. Hospital- acquired pneumonia was suspected and the patient was treated with antibiotics and due to proximity to her daughter's house the patient got moved to [facility] on the [place]. Yesterday, the patient got transferred from the intermediate to the emergency department as the patient was having some difficulties in breathing, her pulse ox was around 87-89% on 5 L of oxygen by nasal cannula, her blood sugar was 168 , her temperature was 98.6 and her respiration was 18 with a blood pressure of 100/52. Pneumonia was suspected. The patient was having also some minimal congested cough. She was brought into the emergency department where a chest x- ray was done and showed a infiltration of the right lung and a small right- sided pleural effusion and right lower lobe pulmonary infiltrate. There was also cardiomegaly. The patient was started on a combination of Zosyn and vancomycin. She is comfortable for now. She utilizes a CPAP/BiPAP machine at the intermediate and this was given to her at the time of discharge from [facility], andstudy was done and she qualified to this apparatus by a blood gases that showed hypercapnia. 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 The patient has some minimal residual weakness on the left. No difficulties with speech. No difficulties with swallowing. No fever or chills. No hemoptysis. No pleurisy. Chronic edema lower extremities without any open wounds, ulcers at this point. The patient is seen again today 01/14/2017 in follow-up on the selective care unit. She is awake and alert in no acute distress. She is maintaining good O2 saturations the upper 90s on 4 L/m per nasal cannula. She denies any worsening shortness of breath. She has a loose nonproductive cough. No chills or night sweats. She's been afebrile. Hemodynamically stable. Her urine culture is positive for group D enterococcus. She remains on Zosyn and vancomycin. On 01/15/2017 the patient is being seen in follow-up. The patient is doing well. She is resting comfortably in bed. She was found to have a VRE in her urine and the vancomycin was discontinued and the patient was started on daptomycin. The patient remains also on Zosyn. Chest x-ray findings are stable. She is not having respiratory distress. No chest pain. No pleurisy. No hemoptysis. No change in mental status changes. She is resting comfortably in bed. She is bedridden. She is taking daily Lasix doses. No fever. No chills. Objective - Vital Signs Vital signs: Vital Signs Temp 98.7 F 01/14/17 20:00 Pulse 70 01/15/17 11:34 Resp 18 01/15/17 11:34 BP 111/50 01/15/17 11:34 Pulse Ox 96 01/15/17 11:34 Intake & Output 01/14/17 01/15/17 01/15/17 18:59 06:59 18:59 Intake Total 200 240 Output Total 1 Balance 200 -1 240 Weight 104.5 kg Intake: Oral 200 240 Output: Urine/Stool Mix 1 Other: Voiding Method Diaper Diaper Diaper Incontinent Incontinent Incontinent # Voids 1 # Bowel Movements 1 - Exam Morbidly obese, calm and comfortable, nonacute distress. She is resting comfortably in bed. Head exam was generally normal. There was no scleral icterus or corneal arcus. Mucous membranes were moist. Neck is supple and short and the patient has significant crowding of the posterior oropharynx and the scar of previous tracheostomy tube insertion is seen over the anterior neck. Lung sounds are diminished in lung bases. There are some bibasilar crackles. No wheezes or rhonchi.Cardiac exam revealed the PMI to be normally situated and sized. The rhythm was regular and no extrasystoles were noted during several minutes of auscultation. The first and second heart sounds were normal and physiologic splitting of the second heart sound was noted. There were no murmurs, rubs, clicks, or gallops. Abdomen is morbidly obese soft nontender. No direct tenderness rebound tensile guarding. Organs cannot be accurately palpated. No ascites. Extremities show chronic edema and chronic deformities in the ankles, feet, and the wrist and the fingers bilaterally. The patient has no open wounds or sores. Sensation is diminished. Motor function in the lower extremity 0-5, 3 out of 5 in the upper extremity. Neurologically, the patient is awake and alert and following commands and answering questions appropriately. - Labs CBC & Chem 7: 01/15/17 05:29 01/15/17 05:29 Labs: Abnormal Lab Results - Last 24 Hours (Table) 01/15/17 01/15/17 Range/Units 05:29 05:29 RBC 3.24 L (3.80-5.40) m/uL Hgb 9.3 L (11.4-16.0) gm/dL Hct 30.7 L (34.0-46.0) % MCHC 30.2 L (31.0-37.0) g/dL RDW 15.8 H (11.5-15.5) % BUN 21 H (7-17) mg/dL Calcium 8.0 L (8.4-10.2) mg/dL Microbiology - Last 24 Hours (Table) 01/12/17 18:09 Urine Culture - Final Urine,Catheterized Enterococcus faecium VRE 01/12/17 15:49 Blood Culture - Preliminary Blood No Growth after 48 hours Assessment and Plan Plan: 1 right leg pulmonary infiltrate, with possible hospital-acquired pneumonia which is ongoing or chronic or recurrent. The patient is currently on a combination of Zosyn. We'll monitor chest x-ray. The follow-up chest x-ray from 01/15/2017 shows stable findings. 2 recent authorization for right lung pneumonia at [facility] in [place] 3 morbid obesity 4 bedridden, and the patient has not ambulated for the past 13 years at least. Chronic contracture deformity in lower extremities and upper extremities bilaterally. 5 history of urine checked infection 6 hypertension 7 hyperlipidemia 8 hypothyroidism 9 hepatic peripheral neuropathy 10 depression 11 anxiety disorder 12 acid reflux 13 his history of urosepsis and prolonged respiratory failure due to complications of sepsis requiring insertion and subsequent removal of tracheostomy tube. 14 chronic normocytic anemia 15 VRE in the urine currently on daptomycin Plan Agree on the antibiotic coverage with understanding that the daptomycin does not cover any staphylococcal lung infection. Continue IV Zosyn. Chest x-ray findings are stable. We'll continue to follow and make further recommendations based on her progress. She is resting comfortably in bed. She is hemodynamically stable.
[2017-01-15] MEDS ORDERED: VANCOMYCIN TROUGH DUE 1 EACH MISC MISCELLANE ONE (15:00)
[2017-01-15] MEDS: LIDOCAINE 5% PATCH TOPICAL SCH (18:52)
[2017-01-15] MEDS: QUEtiapine 50 MG TAB PO SCH (20:17)
--- NOTE | 2017-01-15 21:32 | PN ---
PROGRESS NOTE DATE OF SERVICE: 01/15/2017. REASON FOR FOLLOW UP: 1. Pneumonia. 2. Positive urine culture. Likely contamination/colonization. INTERVAL HISTORY: The patient is afebrile. She is breathing comfortably. She did have some cough but not bringing up any sputum. No chest pain. No abdominal pain. No diarrhea. No urinary symptoms. PHYSICAL EXAMINATION: On examination, blood pressure 132/50 with a pulse of 85, temperature 97.4, She is 96% on 4 L nasal cannula. General description is an elderly female, lying in bed, in no distress. Respiratory system unlabored breathing. Clear to auscultation anteriorly. Heart S1, S2. Regular rate. Abdomen is soft, no tenderness. LABS: Hemoglobin 9.3, white count 8.0 with a BUN of 21, creatinine 0.90. Urine culture finalized with VRE. Other corresponding UA was negative. DIAGNOSTIC IMPRESSION AND PLAN: 1. Patient admitted to the hospital with mental status changes. Concern for possible pneumonia/nosocomial. The patient seemed to have been responding to Zosyn that will be continued. Hopefully finish therapy with oral antibiotics. 2. Positive urine culture with VRE more likely contamination/colitis. No need for therapy for the same. Daptomycin will be discontinued. This were discussed with the primary team. MMODL / IJN: [id number] /
[2017-01-16] MEDS: PIPERACILLIN-TAZOBACTAM 3.375 GM in DEXTROSE/WATER 1 50ML.BAG IVPB SCH ×3 (05:45→21:39)
[2017-01-16 06:22] LABS: Anisocytosis Slight; CH 28.9; CHCM 30.3; HCT 29.5 % (34.0-46.0); HGB 8.8 gm/dL (11.4-16.0); Hypochromasia Marked; MCH 28.5 pg (25.0-35.0); MCHC 29.8 g/dL (31.0-37.0); MCV 95.9 fL (80.0-100.0); Mean Platelet Volume 7.8; Poikilocytosis Slight; RBC 3.07 m/uL (3.80-5.40); RDW 16.6 % (11.5-15.5); WBC 7.8 k/uL (3.8-10.6)
[2017-01-16 06:43] LABS: Anion Gap 8 mmol/L; Blood Urea Nitrogen 19 mg/dL (7-17); Calcium 8.4 mg/dL (8.4-10.2); Carbon Dioxide 33 mmol/L (22-30); Chloride 96 mmol/L (98-107); Glucose 72 mg/dL (74-99); Non-African American GFR(MDRD) 55 (>60 ml/min/1.73 sqM); Potassium 4.1 mmol/L (3.5-5.1); Sodium 137 mmol/L (137-145)
[2017-01-16] MEDS: IPRATROPIUM-ALBUTEROL 3 ML NEB INHALATION SCH ×4 (07:36→18:53)
[2017-01-16] MEDS: NYSTATIN 100,000 UNIT/GM POWD 15 GM TOPICAL SCH ×3 (09:13→21:41)
[2017-01-16] MEDS: POLYETHYLENE GLYCOL 3350 17 GM POWD.PACK PO PRN (09:14)
[2017-01-16] MEDS: GABAPENTIN 100 MG CAP PO SCH ×2 (09:14→21:41)
[2017-01-16] MEDS: DULoxetine HCL 60 MG CAPSULE.DR PO SCH ×2 (09:14→21:41)
[2017-01-16] MEDS: ENOXAPARIN 40 MG/0.4 ML SYRINGE SQ SCH (09:14)
[2017-01-16] MEDS: CALCIUM CARB-VIT D 500MG-200UN 1 EACH TAB PO SCH ×2 (09:14→21:41)
[2017-01-16] MEDS: METOPROLOL SUCCINATE (ER) 25 MG TAB.ER.24H PO SCH (09:14)
[2017-01-16] MEDS: ESCITALOPRAM 10 MG TAB PO SCH (09:15)
[2017-01-16] MEDS: LORATADINE 10 MG TAB PO SCH (09:15)
[2017-01-16] MEDS: TOPIRAMATE 25 MG TAB PO SCH ×2 (09:15→21:41)
[2017-01-16] MEDS: FUROSEMIDE 20 MG TAB PO SCH (09:15)
[2017-01-16] MEDS: amLODIPine 5 MG TAB PO SCH (09:15)
[2017-01-16] MEDS: ASPIRIN 81 MG CHEW PO SCH (09:15)
[2017-01-16] MEDS: PANTOPRAZOLE 40 MG TABLET PO SCH (09:15)
[2017-01-16] MEDS: CHOLECALCIFEROL 1,000 UNIT TAB PO SCH (09:16)
[2017-01-16] MEDS: LEVOTHYROXINE 125 MCG TAB PO SCH (09:16)
[2017-01-16] MEDS: MULTIVITAMINS, THERA 1 EACH TAB PO SCH (09:16)
[2017-01-16] MEDS: ALPRAZolam 0.25 MG TAB PO PRN (09:16)
[2017-01-16] MEDS: HYDROcodone/APAP 7.5-325MG 1 EACH TAB PO SCH ×2 (09:17→21:40)
[2017-01-16] MEDS: DOCUSATE 100 MG CAP PO PRN (09:17)
[2017-01-16] MEDS: NYSTATIN 100,000UNIT/GM CREAM 30 GM TUBE TOPICAL SCH ×2 (09:21→21:41)
--- NOTE | 2017-01-16 10:31 | P.PN ---
Subjective This is a 76-year-old female patient of Dr. Elizabeth currently residing at [facility] with past medical history COPD, hypertension, obstructive sleep apnea on BiPAP at nighttime, chronic pain, gastric esophageal reflux disease, hypothyroidism, ALLERGIC rhinitis, osteoarthritis, idiopathic peripheral autonomic neuropathy, chronic urinary tract infections, vitamin D deficiency, morbid obesity patient was recently hospitalized at the [facility] in [facility] with HCAP and acute UTI at that time she was treated with IV antibiotic and she was sent to [facility] on the [place] for physical therapy rehabilitation, patient has been coughing quite a bit of phlegm over the last few days with yellowish greenish phlegm her daughter came to check on her and she asked to be transferred to the emergency department at [facility] for evaluation of possible HCAP. 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 01/14: Echocardiogram reveals EF of 55-60% with mild concentric left ventricular hypertrophy, severe pulmonary hypertension, mild mitral regurgitation, severe tricuspid regurgitation. Patient has been seen and followed by Dr. Arita from pulmonary medicine and Dr. Aguilar from cardiology. She is continued on IV Lasix. Patient states that her breathing is better today. She denies having cough or sputum production. Lower extremity edema is improved. 01/15: Urine culture is positive for VRE and started on daptomycin during the night. Discussed with Dr. Borrero as urinalysis was negative. No need for treatment and daptomycin will be discontinued. Patient will be continued on only Zosyn at this time. Lasix 40 mg daily will be changed to 20 mg orally daily. Patient states that she had a good night she slept okay during the night. 01/16: Patient states she continues to feel improvement. Patient does relate that she is not wearing her CPAP because she is afraid. The Nursing to Provide the Patient with Xanax Prior to Bedtime to Help with This. Patient Is Complaining of Constipation. Stool Softener Added. She Has Been Afebrile and Pulse Ox Is 93% on 4 L Nasal Cannula. Waffle Boots to Be Added. Anticipate Discharge Back to [facility] on Tuesday. Objective - Vital Signs Vital signs: Vital Signs Temp 97.6 F 01/16/17 04:00 Pulse 84 01/16/17 07:48 Resp 20 01/16/17 04:00 BP 159/58 01/16/17 04:00 Pulse Ox 93 L 01/16/17 07:37 Intake & Output 01/15/17 01/16/17 01/16/17 18:59 06:59 18:59 Intake Total 360 Balance 360 Weight 108 kg Intake: Oral 360 Other: Voiding Method Diaper Diaper Incontinent Incontinent - Exam General appearance: mild distress, obese - EENT Eyes: anicteric sclerae, EOMI, PERRLA, no ptosis, no scleral icterus, normal appearance ENT: hearing grossly normal, NA/AT, normal oropharynx, no thrush, no tonsillar exudates Ears: bilateral: normal - Neck Neck: no lymphadenopathy, normal ROM, no rigidity, no stridor, no thyromegaly Carotids: bilateral: upstroke delayed Thyroid: bilateral: normal size - Respiratory Respiratory: bilateral: diminished, negative: dullness, rales, rhonchi, wheezing , prolonged expiration, prolonged inspiration - Cardiovascular Rhythm: regular Heart sounds: normal: S1, S2 Abnormal Heart Sounds: systolic murmur, no rub, S3 Gallop, no click - Gastrointestinal General gastrointestinal: normal bowel sounds, soft, no splenomegaly, no tenderness, umbilical hernia, no ventral hernia - Integumentary Integumentary: normal, normal turgor - Neurologic Neurologic: focal deficits (bilateral lower extremity paraparesis.) - Musculoskeletal Musculoskeletal: no gait normal, generalized weakness - Psychiatric Psychiatric: A&O x's 3, no appropriate affect, intact judgment & insight - Labs CBC & Chem 7: 01/16/17 05:20 01/16/17 05:20 Labs: Abnormal Lab Results - Last 24 Hours (Table) 01/16/17 01/16/17 Range/Units 05:20 05:20 RBC 3.07 L (3.80-5.40) m/uL Hgb 8.8 L (11.4-16.0) gm/dL Hct 29.5 L (34.0-46.0) % MCHC 29.8 L (31.0-37.0) g/dL RDW 16.6 H (11.5-15.5) % Chloride 96 L (98-107) mmol/L Carbon Dioxide 33 H (22-30) mmol/L BUN 19 H (7-17) mg/dL Glucose 72 L (74-99) mg/dL Microbiology - Last 24 Hours (Table) 01/12/17 15:49 Blood Culture - Preliminary Blood No Growth after 72 hours Assessment and Plan Plan: 1. Acute respiratory insufficiency (no failure) secondary to right lower lobe pneumonia with the right-sided effusion as well as acute on chronic diastolic heart failure. Continue Lasix 20 mg oral every 24 hours, Zosyn 3.375 g IV piggyback every 8 hours, sputum culture, blood culture, urine culture, infectious disease consultation, pulmonary consultation, cardiology consultation , echocardiogram for evaluation of LV function, monitor magnesium, BUN and creatinine, monitor the patient the oxygenation, continue DuoNeb 3 mL nebulization 4 times every day. Monitor the patient weight on a daily basis. 2. Right lower lobe pneumonia with right-sided pleural effusion with sepsis. Continue oxygen support, continue Zosyn 3.375 g IV piggyback every 8 hours, continue DuoNeb 3 mL nebulization 4 times every day, pulmonary consultation. 3. Acute on chronic diastolic heart failure. Continue Toprol-XL 25 mg orally once every day, continue patient on Lasix 40 mg IV push every 24 hours, continue to monitor input and output and daily weight, echocardiogram to be done to evaluate LV function. 4. Recent history of HCAP and UTI with sepsis at [facility] in [place]. Continue treatment as in paragraph #1. 5. GERD. Continue Protonix 40 mg orally once every day. 6. Hypertension and hypertensive cardiovascular disease. Continue Toprol-XL 25 mg orally once every day, amlodipine 5 mg orally once every day. 7. Hyperlipidemia. Low-cholesterol diet. 8. Hypothyroidism. Continue Synthroid 125 g orally once every day. 9. Peripheral neuropathy. Continue gabapentin 200 mg orally twice every day. 10. Depressive disorder, recurrent. Continue patient on Cymbalta 60 mg orally once every day and Lexapro 10 mg orally once every day. 11. Osteoarthritis with joint deformities including the right hand as well as bilateral lower extremity's. 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 12. Anxiety disorder, generalized. Continue patient on Lexapro 10 mg orally once every day. 13. ALLERGIC rhinitis. Continue patient on Claritin 10 mg orally once every day. 14. DVT prophylaxis. Continue Lovenox 40 mg subcutaneously every 24 hours. 15. GI prophylaxis. Continue Protonix 40 mg orally once every day. 16. Hyponatremia, resolved. Discharge plan: Return to [facility]. Impression and plan of care have been directed as dictated by the signing physician. Mary Souza nurse practitioner acting as scribe for signing physician.
--- NOTE | 2017-01-16 14:28 | P.PN ---
Subjective This is a 76-year-old morbidly obese female patient who was the left debilitated following a bout of urosepsis that was complicated by prolonged ventilator-dependent history failure around 13 years ago. Since then the patient has been bedridden, significantly debilitated, has crippling deformities both in upper and lower extremities and she has not ambulated. She was living in a fci in the [place] area. More recently the patient underwent her hospitalization at [facility]. She was given a diagnosis of a pneumonia involving the right lower lobe. Hospital- acquired pneumonia was suspected and the patient was treated with antibiotics and due to proximity to her daughter's house the patient got moved to [facility] on the [place]. Yesterday, the patient got transferred from the fci to the emergency department as the patient was having some difficulties in breathing, her pulse ox was around 87-89% on 5 L of oxygen by nasal cannula, her blood sugar was 168 , her temperature was 98.6 and her respiration was 18 with a blood pressure of 100/52. Pneumonia was suspected. The patient was having also some minimal congested cough. She was brought into the emergency department where a chest x- ray was done and showed a infiltration of the right lung and a small right- sided pleural effusion and right lower lobe pulmonary infiltrate. There was also cardiomegaly. The patient was started on a combination of Zosyn and vancomycin. She is comfortable for now. She utilizes a CPAP/BiPAP machine at the fci and this was given to her at the time of discharge from [facility], andstudy was done and she qualified to this apparatus by a blood gases that showed hypercapnia. 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 The patient has some minimal residual weakness on the left. No difficulties with speech. No difficulties with swallowing. No fever or chills. No hemoptysis. No pleurisy. Chronic edema lower extremities without any open wounds, ulcers at this point. The patient is seen again today 01/14/2017 in follow-up on the selective care unit. She is awake and alert in no acute distress. She is maintaining good O2 saturations the upper 90s on 4 L/m per nasal cannula. She denies any worsening shortness of breath. She has a loose nonproductive cough. No chills or night sweats. She's been afebrile. Hemodynamically stable. Her urine culture is positive for group D enterococcus. She remains on Zosyn and vancomycin. On 01/15/2017 the patient is being seen in follow-up. The patient is doing well. She is resting comfortably in bed. She was found to have a VRE in her urine and the vancomycin was discontinued and the patient was started on daptomycin. The patient remains also on Zosyn. Chest x-ray findings are stable. She is not having respiratory distress. No chest pain. No pleurisy. No hemoptysis. No change in mental status changes. She is resting comfortably in bed. She is bedridden. She is taking daily Lasix doses. No fever. No chills. On 01/16/2017 the patient is being seen in follow-up. She continues to feel okay. No specific complaints pH is not wearing her CPAP. She has no significant respiratory distress. No cough sputum production chest tightness or wheezing. She is being cheered for an underlying VRE urinary tract infection. No fever. No chills. No change in mental status. Pulse ox remained around 93% on 4 liters of oxygen by nasal cannula. Objective - Vital Signs Vital signs: Vital Signs Temp 96.9 F L 01/16/17 08:00 Pulse 76 01/16/17 11:23 Resp 20 01/16/17 08:00 BP 132/96 01/16/17 08:00 Pulse Ox 92 L 01/16/17 08:00 Intake & Output 01/15/17 01/16/17 01/16/17 18:59 06:59 18:59 Intake Total 360 Balance 360 Weight 108 kg Intake: Oral 360 Other: Voiding Method Diaper Diaper Diaper Incontinent Incontinent Incontinent - Exam Morbidly obese, calm and comfortable, nonacute distress. She is resting comfortably in bed. Head exam was generally normal. There was no scleral icterus or corneal arcus. Mucous membranes were moist. Neck is supple and short and the patient has significant crowding of the posterior oropharynx and the scar of previous tracheostomy tube insertion is seen over the anterior neck. Lung sounds are diminished in lung bases. There are some bibasilar crackles. No wheezes or rhonchi.Cardiac exam revealed the PMI to be normally situated and sized. The rhythm was regular and no extrasystoles were noted during several minutes of auscultation. The first and second heart sounds were normal and physiologic splitting of the second heart sound was noted. There were no murmurs, rubs, clicks, or gallops. Abdomen is morbidly obese soft nontender. No direct tenderness rebound tensile guarding. Organs cannot be accurately palpated. No ascites. Extremities show chronic edema and chronic deformities in the ankles, feet, and the wrist and the fingers bilaterally. The patient has no open wounds or sores. Sensation is diminished. Motor function in the lower extremity 0-5, 3 out of 5 in the upper extremity. Neurologically, the patient is awake and alert and following commands and answering questions appropriately. - Labs CBC & Chem 7: 01/16/17 05:20 01/16/17 05:20 Labs: Abnormal Lab Results - Last 24 Hours (Table) 01/16/17 01/16/17 Range/Units 05:20 05:20 RBC 3.07 L (3.80-5.40) m/uL Hgb 8.8 L (11.4-16.0) gm/dL Hct 29.5 L (34.0-46.0) % MCHC 29.8 L (31.0-37.0) g/dL RDW 16.6 H (11.5-15.5) % Chloride 96 L (98-107) mmol/L Carbon Dioxide 33 H (22-30) mmol/L BUN 19 H (7-17) mg/dL Glucose 72 L (74-99) mg/dL Microbiology - Last 24 Hours (Table) 01/12/17 15:49 Blood Culture - Preliminary Blood No Growth after 72 hours Assessment and Plan Plan: Assessment 1 right lung pulmonary infiltrate, with possible hospital-acquired pneumonia which is ongoing or chronic or recurrent. The patient is currently on Zosyn. Pulmonary status is stable. 2 Recent hospitalization for right lung pneumonia at [facility] in [place] 3 morbid obesity 4 bedridden, and the patient has not ambulated for the past 13 years at least. Chronic contracture deformity in lower extremities and upper extremities bilaterally. 5 history of urine checked infection 6 hypertension 7 hyperlipidemia 8 hypothyroidism 9 hepatic peripheral neuropathy 10 depression 11 anxiety disorder 12 acid reflux 13 his history of urosepsis and prolonged respiratory failure due to complications of sepsis requiring insertion and subsequent removal of tracheostomy tube. 14 chronic normocytic anemia 15 VRE in the urine currently on daptomycin Plan The patient is still on broad-spectrum antibiotics. The patient is on Zosyn and daptomycin. Incentive spirometer. Pulmonate toileting. Deep breathing. Nevertheless she was around the clock with albuterol and ipratropium bromide. We will follow. Discharge planning is in progress.
[2017-01-16 17:05] LABS: Glucose,Whole Blood 89 mg/dL (75-99)
[2017-01-16] MEDS: LIDOCAINE 5% PATCH TOPICAL SCH (17:27)
[2017-01-16] MEDS: QUEtiapine 50 MG TAB PO SCH (21:41)
[2017-01-17] MEDS: SODIUM CHLORIDE 0.9% 1,000 ML IV SCH (05:49)
[2017-01-17 05:59] LABS: Anion Gap 7 mmol/L; Blood Urea Nitrogen 17 mg/dL (7-17); Calcium 8.6 mg/dL (8.4-10.2); Carbon Dioxide 36 mmol/L (22-30); Chloride 95 mmol/L (98-107); Glucose 74 mg/dL (74-99); Non-African American GFR(MDRD) 53 (>60 ml/min/1.73 sqM); Potassium 4.7 mmol/L (3.5-5.1); Sodium 138 mmol/L (137-145)
[2017-01-17] MEDS: PIPERACILLIN-TAZOBACTAM 3.375 GM in DEXTROSE/WATER 1 50ML.BAG IVPB SCH ×3 (06:35→20:47)
[2017-01-17] MEDS: IPRATROPIUM-ALBUTEROL 3 ML NEB INHALATION SCH ×4 (08:50→19:49)
[2017-01-17] MEDS: ENOXAPARIN 40 MG/0.4 ML SYRINGE SQ SCH (09:22)
[2017-01-17] MEDS: LEVOTHYROXINE 125 MCG TAB PO SCH (09:23)
[2017-01-17] MEDS: METOPROLOL SUCCINATE (ER) 25 MG TAB.ER.24H PO SCH (09:23)
[2017-01-17] MEDS: GABAPENTIN 100 MG CAP PO SCH ×2 (09:23→20:26)
[2017-01-17] MEDS: ASPIRIN 81 MG CHEW PO SCH (09:23)
[2017-01-17] MEDS: TOPIRAMATE 25 MG TAB PO SCH ×2 (09:23→20:26)
[2017-01-17] MEDS: amLODIPine 5 MG TAB PO SCH (09:23)
[2017-01-17] MEDS: ESCITALOPRAM 10 MG TAB PO SCH (09:23)
[2017-01-17] MEDS: CHOLECALCIFEROL 1,000 UNIT TAB PO SCH (09:24)
[2017-01-17] MEDS: PANTOPRAZOLE 40 MG TABLET PO SCH (09:24)
[2017-01-17] MEDS: CALCIUM CARB-VIT D 500MG-200UN 1 EACH TAB PO SCH ×2 (09:24→20:26)
[2017-01-17] MEDS: MULTIVITAMINS, THERA 1 EACH TAB PO SCH (09:24)
[2017-01-17] MEDS: LORATADINE 10 MG TAB PO SCH (09:24)
[2017-01-17] MEDS: FUROSEMIDE 20 MG TAB PO SCH (09:24)
[2017-01-17] MEDS: DULoxetine HCL 60 MG CAPSULE.DR PO SCH ×2 (09:24→20:26)
[2017-01-17] MEDS: NYSTATIN 100,000UNIT/GM CREAM 30 GM TUBE TOPICAL SCH ×2 (09:28→20:27)
[2017-01-17] MEDS: NYSTATIN 100,000 UNIT/GM POWD 15 GM TOPICAL SCH ×3 (09:28→23:05)
[2017-01-17] MEDS: HYDROcodone/APAP 7.5-325MG 1 EACH TAB PO SCH ×2 (09:36→20:25)
--- NOTE | 2017-01-17 09:56 | P.PN ---
Subjective This is a 76-year-old female patient of Dr. Elizabeth currently residing at [facility] with past medical history COPD, hypertension, obstructive sleep apnea on BiPAP at nighttime, chronic pain, gastric esophageal reflux disease, hypothyroidism, ALLERGIC rhinitis, osteoarthritis, idiopathic peripheral autonomic neuropathy, chronic urinary tract infections, vitamin D deficiency, morbid obesity patient was recently hospitalized at the [facility] in [facility] with HCAP and acute UTI at that time she was treated with IV antibiotic and she was sent to [facility] on the [address] for physical therapy rehabilitation, patient has been coughing quite a bit of phlegm over the last few days with yellowish greenish phlegm her daughter came to check on her and she asked to be transferred to the emergency department at [facility] for evaluation of possible HCAP. 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 01/14: Echocardiogram reveals EF of 55-60% with mild concentric left ventricular hypertrophy, severe pulmonary hypertension, mild mitral regurgitation, severe tricuspid regurgitation. Patient has been seen and followed by Dr. Arita from pulmonary medicine and Dr. Aguilar from cardiology. She is continued on IV Lasix. Patient states that her breathing is better today. She denies having cough or sputum production. Lower extremity edema is improved. 01/15: Urine culture is positive for VRE and started on daptomycin during the night. Discussed with Dr. Borrero as urinalysis was negative. No need for treatment and daptomycin will be discontinued. Patient will be continued on only Zosyn at this time. Lasix 40 mg daily will be changed to 20 mg orally daily. Patient states that she had a good night she slept okay during the night. 01/16: Patient states she continues to feel improvement. Patient does relate that she is not wearing her CPAP because she is afraid. The Nursing to Provide the Patient with Xanax Prior to Bedtime to Help with This. Patient Is Complaining of Constipation. Stool Softener Added. She Has Been Afebrile and Pulse Ox Is 93% on 4 L Nasal Cannula. Waffle Boots to Be Added. Anticipate Discharge Back to [facility] on Tuesday. 01/17:No new complaints. She did have a bowel movement yesterday. She refused waffle boots. Her cpap is not here for her to use. Patient will be moved to [facility] today with plan to transfer back to [facility] tomorrow. Objective - Vital Signs Vital signs: Vital Signs Temp 99.0 F 01/17/17 05:00 Pulse 83 01/17/17 05:00 Resp 20 01/17/17 05:00 BP 127/58 01/17/17 05:00 Pulse Ox 94 L 01/17/17 05:00 Intake & Output 01/16/17 01/17/17 01/17/17 18:59 06:59 18:59 Output Total 0 Balance 0 Weight 111.5 kg Output: Stool 0 Other: Voiding Method Diaper Incontinent - Exam General appearance: mild distress, obese - EENT Eyes: anicteric sclerae, EOMI, PERRLA, no ptosis, no scleral icterus, normal appearance ENT: hearing grossly normal, NA/AT, normal oropharynx, no thrush, no tonsillar exudates Ears: bilateral: normal - Neck Neck: no lymphadenopathy, normal ROM, no rigidity, no stridor, no thyromegaly Carotids: bilateral: upstroke delayed Thyroid: bilateral: normal size - Respiratory Respiratory: bilateral: diminished, negative: dullness, rales, rhonchi, wheezing , prolonged expiration, prolonged inspiration - Cardiovascular Rhythm: regular Heart sounds: normal: S1, S2 Abnormal Heart Sounds: systolic murmur, no rub, S3 Gallop, no click - Gastrointestinal General gastrointestinal: normal bowel sounds, soft, no splenomegaly, no tenderness, umbilical hernia, no ventral hernia - Integumentary Integumentary: normal, normal turgor - Neurologic Neurologic: focal deficits (bilateral lower extremity paraparesis.) - Musculoskeletal Musculoskeletal: no gait normal, generalized weakness - Psychiatric Psychiatric: A&O x's 3, no appropriate affect, intact judgment & insight - Labs CBC & Chem 7: 01/16/17 05:20 01/17/17 05:12 Labs: Abnormal Lab Results - Last 24 Hours (Table) 01/17/17 Range/Units 05:12 Chloride 95 L (98-107) mmol/L Carbon Dioxide 36 H (22-30) mmol/L Microbiology - Last 24 Hours (Table) 01/12/17 15:49 Blood Culture - Preliminary Blood No Growth after 96 hours Assessment and Plan Plan: 1. Acute respiratory insufficiency (no failure) secondary to right lower lobe pneumonia with the right-sided effusion as well as acute on chronic diastolic heart failure. Continue Lasix 20 mg oral every 24 hours, Zosyn 3.375 g IV piggyback every 8 hours, sputum culture, blood culture, urine culture, infectious disease consultation, pulmonary consultation, cardiology consultation , echocardiogram for evaluation of LV function, monitor magnesium, BUN and creatinine, monitor the patient the oxygenation, continue DuoNeb 3 mL nebulization 4 times every day. Monitor the patient weight on a daily basis. 2. Right lower lobe pneumonia with right-sided pleural effusion with sepsis. Continue oxygen support, continue Zosyn 3.375 g IV piggyback every 8 hours, continue DuoNeb 3 mL nebulization 4 times every day, pulmonary consultation. 3. Acute on chronic diastolic heart failure. Continue Toprol-XL 25 mg orally once every day, continue patient on Lasix 40 mg IV push every 24 hours, continue to monitor input and output and daily weight, echocardiogram to be done to evaluate LV function. 4. Recent history of HCAP and UTI with sepsis at [facility] in [place]. Continue treatment as in paragraph #1. 5. GERD. Continue Protonix 40 mg orally once every day. 6. Hypertension and hypertensive cardiovascular disease. Continue Toprol-XL 25 mg orally once every day, amlodipine 5 mg orally once every day. 7. Hyperlipidemia. Low-cholesterol diet. 8. Hypothyroidism. Continue Synthroid 125 g orally once every day. 9. Peripheral neuropathy. Continue gabapentin 200 mg orally twice every day. 10. Depressive disorder, recurrent. Continue patient on Cymbalta 60 mg orally once every day and Lexapro 10 mg orally once every day. 11. Osteoarthritis with joint deformities including the right hand as well as bilateral lower extremity's. 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 12. Anxiety disorder, generalized. Continue patient on Lexapro 10 mg orally once every day. 13. ALLERGIC rhinitis. Continue patient on Claritin 10 mg orally once every day. 14. DVT prophylaxis. Continue Lovenox 40 mg subcutaneously every 24 hours. 15. GI prophylaxis. Continue Protonix 40 mg orally once every day. 16. Hyponatremia, resolved. Discharge plan: Return to [facility]. Impression and plan of care have been directed as dictated by the signing physician. Mary Souza nurse practitioner acting as scribe for signing physician.
--- NOTE | 2017-01-17 12:10 | PN ---
PROGRESS NOTE DATE OF SERVICE: 01/16/2017. REASON FOR FOLLOW UP: Pneumonia. INTERVAL HISTORY: The patient is afebrile. She is breathing comfortably. He has no significant chest pain. Occasional cough. No abdominal pain. No nausea, vomiting, diarrhea. EXAMINATION: Blood pressure 135/53, pulse of 77, temperature 97.1. She is 97% on 4 L nasal cannula. General description is an elderly female lying in bed, in no distress. RESPIRATORY SYSTEM: Unlabored breathing. Clear to auscultation anteriorly. Heart S1, S2. Regular rate and rhythm. ABDOMEN: Soft. No tenderness. LAB: Hemoglobin 8.8, white count 10.8, BUN of 19, creatinine 0.99 blood culture negative. Sputum was not collected. DIAGNOSTIC IMPRESSION AND PLAN: 1. Patient admitted to the hospital with mental status changes and question of pneumonia. The patient seems to have shown clinical improvement on Rocephin. Blood cultures have been negative. No sputum was collected. Keep the patient on Zosyn while she is in the hospital, hopefully finish out therapy with oral antibiotics. 2. Positive urine culture with VRE likely contamination as corresponding urine was negative. No need for workup for the same. MMODL / IJN: [id number] /
--- NOTE | 2017-01-17 13:17 | P.PN ---
Subjective This is a 76-year-old morbidly obese female patient who was the left debilitated following a bout of urosepsis that was complicated by prolonged ventilator-dependent history failure around 13 years ago. Since then the patient has been bedridden, significantly debilitated, has crippling deformities both in upper and lower extremities and she has not ambulated. She was living in a intermediate in the [place] area. More recently the patient underwent her hospitalization at [facility]. She was given a diagnosis of a pneumonia involving the right lower lobe. Hospital- acquired pneumonia was suspected and the patient was treated with antibiotics and due to proximity to her daughter's house the patient got moved to [facility] on the [place]. Yesterday, the patient got transferred from the intermediate to the emergency department as the patient was having some difficulties in breathing, her pulse ox was around 87-89% on 5 L of oxygen by nasal cannula, her blood sugar was 168 , her temperature was 98.6 and her respiration was 18 with a blood pressure of 100/52. Pneumonia was suspected. The patient was having also some minimal congested cough. She was brought into the emergency department where a chest x- ray was done and showed a infiltration of the right lung and a small right- sided pleural effusion and right lower lobe pulmonary infiltrate. There was also cardiomegaly. The patient was started on a combination of Zosyn and vancomycin. She is comfortable for now. She utilizes a CPAP/BiPAP machine at the intermediate and this was given to her at the time of discharge from [facility], andstudy was done and she qualified to this apparatus by a blood gases that showed hypercapnia. 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 The patient has some minimal residual weakness on the left. No difficulties with speech. No difficulties with swallowing. No fever or chills. No hemoptysis. No pleurisy. Chronic edema lower extremities without any open wounds, ulcers at this point. The patient is seen again today 01/14/2017 in follow-up on the selective care unit. She is awake and alert in no acute distress. She is maintaining good O2 saturations the upper 90s on 4 L/m per nasal cannula. She denies any worsening shortness of breath. She has a loose nonproductive cough. No chills or night sweats. She's been afebrile. Hemodynamically stable. Her urine culture is positive for group D enterococcus. She remains on Zosyn and vancomycin. On 01/15/2017 the patient is being seen in follow-up. The patient is doing well. She is resting comfortably in bed. She was found to have a VRE in her urine and the vancomycin was discontinued and the patient was started on daptomycin. The patient remains also on Zosyn. Chest x-ray findings are stable. She is not having respiratory distress. No chest pain. No pleurisy. No hemoptysis. No change in mental status changes. She is resting comfortably in bed. She is bedridden. She is taking daily Lasix doses. No fever. No chills. On 01/16/2017 the patient is being seen in follow-up. She continues to feel okay. No specific complaints pH is not wearing her CPAP. She has no significant respiratory distress. No cough sputum production chest tightness or wheezing. She is being cheered for an underlying VRE urinary tract infection. No fever. No chills. No change in mental status. Pulse ox remained around 93% on 4 liters of oxygen by nasal cannula. On 01/17/2017 the patient remains stable. She is having some vague abdominal discomfort and this apparently has been a chronic ongoing problem for this patient. No chills. No fever. No respiratory distress. Laying down comfortably in bed. No nausea. No vomiting. The electrolytes are all within normal limits. Objective - Vital Signs Vital signs: Vital Signs Temp 96.9 F L 01/17/17 08:00 Pulse 84 01/17/17 12:44 Resp 20 01/17/17 08:00 BP 138/88 01/17/17 08:00 Pulse Ox 96 01/17/17 08:00 Intake & Output 01/16/17 01/17/17 01/17/17 18:59 06:59 18:59 Output Total 0 0 Balance 0 0 Weight 111.5 kg Output: Stool 0 0 Other: Voiding Method Diaper Diaper Incontinent Incontinent - Exam Morbidly obese, calm and comfortable, nonacute distress. She is resting comfortably in bed. Head exam was generally normal. There was no scleral icterus or corneal arcus. Mucous membranes were moist. Neck is supple and short and the patient has significant crowding of the posterior oropharynx and the scar of previous tracheostomy tube insertion is seen over the anterior neck. Lung sounds are diminished in lung bases. There are some bibasilar crackles. No wheezes or rhonchi.Cardiac exam revealed the PMI to be normally situated and sized. The rhythm was regular and no extrasystoles were noted during several minutes of auscultation. The first and second heart sounds were normal and physiologic splitting of the second heart sound was noted. There were no murmurs, rubs, clicks, or gallops. Abdomen is morbidly obese soft nontender. No direct tenderness rebound tensile guarding. Organs cannot be accurately palpated. No ascites. Extremities show chronic edema and chronic deformities in the ankles, feet, and the wrist and the fingers bilaterally. The patient has no open wounds or sores. Sensation is diminished. Motor function in the lower extremity 0-5, 3 out of 5 in the upper extremity. Neurologically, the patient is awake and alert and following commands and answering questions appropriately. - Labs CBC & Chem 7: 01/16/17 05:20 01/17/17 05:12 Labs: Abnormal Lab Results - Last 24 Hours (Table) 01/17/17 Range/Units 05:12 Chloride 95 L (98-107) mmol/L Carbon Dioxide 36 H (22-30) mmol/L Microbiology - Last 24 Hours (Table) 01/12/17 15:49 Blood Culture - Preliminary Blood No Growth after 96 hours Assessment and Plan Plan: Assessment 1 right lung pulmonary infiltrate, with possible hospital-acquired pneumonia which is ongoing or chronic or recurrent. The patient is currently on Zosyn. Pulmonary status is stable. 2 Recent hospitalization for right lung pneumonia at [facility] in [place] 3 morbid obesity 4 bedridden, and the patient has not ambulated for the past 13 years at least. Chronic contracture deformity in lower extremities and upper extremities bilaterally. 5 history of urine checked infection 6 hypertension 7 hyperlipidemia 8 hypothyroidism 9 hepatic peripheral neuropathy 10 depression 11 anxiety disorder 12 acid reflux 13 his history of urosepsis and prolonged respiratory failure due to complications of sepsis requiring insertion and subsequent removal of tracheostomy tube. 14 chronic normocytic anemia 15 VRE in the urine , contamination per infectious disease evaluation the patient was taken off daptomycin. Plan Repeat chest x-ray in the morning. Consider a GI evaluation regarding her chronic abdominal discomfort. Discharge planning is in progress.
[2017-01-17] MEDS: LIDOCAINE 5% PATCH TOPICAL SCH (18:11)
[2017-01-17] MEDS: QUEtiapine 50 MG TAB PO SCH (20:26)
[2017-01-18] MEDS: PIPERACILLIN-TAZOBACTAM 3.375 GM in DEXTROSE/WATER 1 50ML.BAG IVPB SCH ×3 (05:16→22:10)
[2017-01-18] MEDS: LEVOTHYROXINE 125 MCG TAB PO SCH (06:29)
[2017-01-18] MEDS: ASPIRIN 81 MG CHEW PO SCH (07:58)
[2017-01-18] MEDS: LORATADINE 10 MG TAB PO SCH (07:58)
[2017-01-18] MEDS: CHOLECALCIFEROL 1,000 UNIT TAB PO SCH (07:58)
[2017-01-18] MEDS: CALCIUM CARB-VIT D 500MG-200UN 1 EACH TAB PO SCH ×2 (07:58→21:38)
[2017-01-18] MEDS: amLODIPine 5 MG TAB PO SCH (07:58)
[2017-01-18] MEDS: METOPROLOL SUCCINATE (ER) 25 MG TAB.ER.24H PO SCH (07:58)
[2017-01-18] MEDS: DULoxetine HCL 60 MG CAPSULE.DR PO SCH ×2 (07:58→21:39)
[2017-01-18] MEDS: FUROSEMIDE 20 MG TAB PO SCH (07:58)
[2017-01-18] MEDS: PANTOPRAZOLE 40 MG TABLET PO SCH (07:58)
[2017-01-18] MEDS: HYDROcodone/APAP 7.5-325MG 1 EACH TAB PO SCH ×2 (07:59→21:39)
[2017-01-18] MEDS: GABAPENTIN 100 MG CAP PO SCH ×2 (07:59→21:38)
[2017-01-18] MEDS: TOPIRAMATE 25 MG TAB PO SCH ×2 (07:59→21:38)
[2017-01-18] MEDS: POLYETHYLENE GLYCOL 3350 17 GM POWD.PACK PO PRN (08:04)
[2017-01-18] MEDS: NYSTATIN 100,000 UNIT/GM POWD 15 GM TOPICAL SCH ×3 (08:10→21:45)
[2017-01-18] MEDS: NYSTATIN 100,000UNIT/GM CREAM 30 GM TUBE TOPICAL SCH ×2 (08:10→21:44)
[2017-01-18] MEDS: ESCITALOPRAM 10 MG TAB PO SCH (08:10)
[2017-01-18] MEDS: ENOXAPARIN 40 MG/0.4 ML SYRINGE SQ SCH (08:10)
[2017-01-18 08:39] LABS: Anisocytosis Slight; CH 28.5; CHCM 30.3; HCT 31.8 % (34.0-46.0); HDW 3.85; HGB 9.5 gm/dL (11.4-16.0); Hypochromasia Marked; MCH 28.2 pg (25.0-35.0); MCHC 29.8 g/dL (31.0-37.0); MCV 94.8 fL (80.0-100.0); Mean Platelet Volume 7.6; Poikilocytosis Slight; RBC 3.36 m/uL (3.80-5.40); RDW 16.7 % (11.5-15.5); WBC 7.7 k/uL (3.8-10.6)
[2017-01-18 08:54] LABS: Anion Gap 4 mmol/L; Blood Urea Nitrogen 15 mg/dL (7-17); Calcium 8.4 mg/dL (8.4-10.2); Carbon Dioxide 38 mmol/L (22-30); Chloride 96 mmol/L (98-107); Glucose 81 mg/dL (74-99); Non-African American GFR(MDRD) 55 (>60 ml/min/1.73 sqM); Potassium 4.3 mmol/L (3.5-5.1); Sodium 138 mmol/L (137-145)
[2017-01-18] MEDS: IPRATROPIUM-ALBUTEROL 3 ML NEB INHALATION SCH ×4 (09:14→19:13)
--- NOTE | 2017-01-18 09:39 | P.CONS ---
History of Present Illness - Reason for Consult Consult date: 01/18/17 epigastric pain Requesting physician: Agustin Vega - History of Present Illness 76-year-old female morbid obesity, PALMIRA, idiopathic peripheral autonomic neuropathy, chronic UTI, bedridden 13+ years with crippling deformities admitted with difficulty breathing pneumonia suspected as well as diastolic heart failure. Recently hospitalized at [facility] with HCAP. Consultation requested for epigastric pain. Patient reports chronic epigastric pain for more than 5 years duration only with meals. No emesis, hematemesis hematochezia melena. No history of EGD. Denies abdominal odynophagia dysphagia. Hemoglobin 9.5. MCV 94. Platelets 358. BUN 15. Creatinine 0.9. Home medications omeprazole 20 mg daily. Currently resting comfortably. Just finished her breakfast including toast and fried egg. No abdominal pain presently. Review of Systems Constitutional: Denies fever, chills, sweats, weight gain, or loss. HEENT: Negative for migraines, blurred vision or loss, earaches, drainage, tinnitus, oral mucosal lesions, dysphagia, or odynophagia. CARDIAC: Hypertension. Hyperlipidemia. Negative for chest pain, arrhythmias, or palpitation. RESPIRATORY: PALMIRA. Pneumonia. Negative for shortness of breath, hemoptysis, cough, or sputum production. GI: See HPI for pertinent findings. : Negative for hematuria, urgency, frequency, polyuria, or dysuria. GYNc: Denies possibility of . Negative vaginal discharge. MUSCULOSKELETAL: Peripheral autonomic neuropathy. NEUROLOGIC: Negative for stroke or TIA. ENDOCRINE: Hypothyroidism. SKIN: Negative for rash or itching. PSYCHIATRIC: Depressive disorder. All systems: negative (See HPI) Past Medical History Past Medical History: Heart Failure, COPD, GERD/Reflux, Hyperlipidemia, Hypertension, Musculoskeletal Disorder, Neurologic Disorder, Osteoarthritis (OA) , Sleep Apnea/CPAP/BIPAP, Thyroid Disorder Additional Past Medical History / Comment(s): COPD, hypertension, obstructive sleep apnea on BiPAP at nighttime, chronic pain, gastric esophageal reflux disease, hypothyroidism, ALLERGIC rhinitis, osteoarthritis, idiopathic peripheral autonomic neuropathy, chronic urinary tract infections, vitamin D deficiency, morbid obesity, acid reflux, chronic contractures and deformities in the upper and lower extremities mainly wrists and ankles and feet, osteoarthritis, generalized anxiety disorder, previous history of urinary tract infection, depression, idiopathic peripheral autonomic neuropathy, previous history of urosepsis with prolonged ventilator dependent respiratory failure. History of Any Multi-Drug Resistant Organisms: Unobtainable Past Surgical History: Appendectomy, Orthopedic Surgery Additional Past Surgical History / Comment(s): PEG tube and trach placement with removal, left hip arthroplasty in 1995, insertion and removal of a tracheostomy tube. Past Psychological History: Anxiety, Depression Smoking Status: Former smoker Past Alcohol Use History: None Reported Additional Past Alcohol Use History / Comment(s): Patient was a smoker 3 packs per day for 38 years and quit in 1983. She has had alcohol use in the past. She worked in [employer] for 30 years and is retired. Past Drug Use History: None Reported - Past Family History Father Additional Family Medical History / Comment(s): at age 58 from a fall and head injury. Mother Additional Family Medical History / Comment(s): Mother at age 70 from a CVA. Brother(s) Additional Family Medical History / Comment(s): Patient has one brother with no major medical problems. Sister(s) Additional Family Medical History / Comment(s): Patient has one sister with no major medical problems. Daughter(s) Additional Family Medical History / Comment(s): Patient has 2 daughters no major medical problems. Medications and Allergies Home Medications Medication Instructions Recorded Confirmed Type ALPRAZolam [Xanax] 0.25 mg PO BID PRN 01/12/17 01/12/17 History Acetaminophen Tab [Tylenol Tab] 500 mg PO Q6H PRN MDD 4000MG PER 01/12/17 History 24HR Aspirin 81 mg PO DAILY 01/12/17 01/12/17 History Calcium Carb-Vit D 500Mg-200Un 1 tab PO BID 01/12/17 01/12/17 History [Oscal 500+D] Cholecalciferol [Vitamin D3] 2,000 unit PO DAILY 01/12/17 01/12/17 History DULoxetine HCL [Cymbalta] 60 mg PO BID 01/12/17 01/12/17 History Dimethicone/Zinc Oxide [Inzo Zinc 1 applic TOPICAL DIRECTED PRN 01/12/17 History Oxide Barrier Cream] Dimethicone/Zinc Oxide [Inzo Zinc 1 applic TOPICAL Q12H 01/12/17 01/12/17 History Oxide Barrier Cream] Docusate [Colace] 100 mg PO DAILY PRN 01/12/17 01/12/17 History Escitalopram [Lexapro] 10 mg PO DAILY 01/12/17 01/12/17 History Gabapentin [Neurontin] 200 mg PO BID 01/12/17 01/12/17 History Hydrocodone/Acetaminophen [[place] 1 tab PO BID 01/12/17 01/12/17 History 7.5-325] Hydrocodone/Acetaminophen [[place] 1 tab PO Q6HR PRN 01/12/17 01/12/17 History 7.5-325] Ipratropium-Albuterol Nebulize 3 ml INHALATION RT-Q4H PRN 01/12/17 01/12/17 History [Duoneb 0.5 mg-3 mg/3 ml Soln] Levothyroxine Sodium [Synthroid] 125 mcg PO DAILY 01/12/17 01/12/17 History Lidocaine 5% Patch [Lidoderm] 1 patch TOPICAL DAILY@1800 01/12/17 01/12/17 History Loratadine [Claritin] 10 mg PO DAILY 01/12/17 01/12/17 History Magnesium Hydroxide [Milk of 2,400 mg PO DAILY PRN 01/12/17 01/12/17 History Magnesia] Metoprolol Succinate [Toprol XL] 25 mg PO DAILY 01/12/17 01/12/17 History Multivits,Th W-Ca,Fe,Oth Min 1 tab PO DAILY 01/12/17 01/12/17 History [Therapeutic M] Nystatin 100,000Unit/gm Cream 1 applic TOPICAL Q12H 01/12/17 01/12/17 History [Mycostatin Cream] Omeprazole [PriLOSEC] 20 mg PO AC-BRKFST 01/12/17 01/12/17 History Ondansetron HCl [Zofran] 4 mg PO Q6H PRN 01/12/17 01/12/17 History Polyethylene Glycol 3350 [Miralax] 17 gm PO DAILY PRN 01/12/17 01/12/17 History QUEtiapine [SEROquel] 50 mg PO HS 01/12/17 01/12/17 History Sodium Chloride [Saline Mist] 2 spray EA NOSTRIL DIRECTED PRN 01/12/17 History Topiramate [Topamax] 50 mg PO BID 01/12/17 01/12/17 History amLODIPine [Norvasc] 5 mg PO DAILY 01/12/17 01/12/17 History Allergies Allergy/AdvReac Type Severity Reaction Status Date / Time metronidazole [From Flagyl] Allergy Unknown Verified 01/12/17 15:50 Physical Exam Vitals: Vital Signs Temp Pulse Pulse Resp BP Pulse Ox 01/18/17 09:24 80 01/18/17 09:14 80 01/18/17 07:00 97.6 F 80 18 112/56 99 01/17/17 23:00 98.8 F 77 16 135/95 95 01/17/17 20:00 84 01/17/17 19:49 88 01/17/17 16:34 86 01/17/17 16:19 86 100 01/17/17 15:49 97.6 F 77 16 116/46 98 01/17/17 12:44 84 01/17/17 12:36 80 01/17/17 12:00 96.9 F L 78 16 95 Intake and Output 01/17/17 01/18/17 01/18/17 22:59 06:59 14:59 Intake Total 250 Balance 250 Intake: Oral 250 Other: Voiding Method Incontinent Incontinent # Voids 2 # Bowel Movements 1 Weight 109 kg General appearance: The patient is alert, oriented, in no acute distress. HET: Head is normocephalic and atraumatic. Pupils are equal and reactive. Oropharynx is clear without lesions. Neck: Supple without lymphadenopathy. Trachea midline. Heart: S1 S2. Regular rate and rhythm. Lungs: No crackles or wheezes are heard. Abdomen: Soft, mild midepigastric tenderness, nondistended with bowel sounds. No peritoneal signs. No palpable organomegaly or masses. Extremities: Crippling deformities upper/lower bilateral stroma days. Neurological: Bedridden. Generalized weakness. Results CBC & Chem 7: 01/18/17 08:12 01/18/17 08:12 Labs: Abnormal Lab Results - Last 24 Hours (Table) 01/18/17 01/18/17 Range/Units 08:12 08:12 RBC 3.36 L (3.80-5.40) m/uL Hgb 9.5 L (11.4-16.0) gm/dL Hct 31.8 L (34.0-46.0) % MCHC 29.8 L (31.0-37.0) g/dL RDW 16.7 H (11.5-15.5) % Chloride 96 L (98-107) mmol/L Carbon Dioxide 38 H (22-30) mmol/L Microbiology - Last 24 Hours (Table) 01/12/17 15:49 Blood Culture - Preliminary Blood No Growth after 120 hours Assessment and Plan (1) Epigastric pain Narrative/Plan: Tonic epigastric pain greater than 5 years duration and especially with meals. Suspect GERD. Status: Acute Plan: 1. Omeprazole 20 mg twice daily. 2. Carafate 1 g twice daily with meals. 3. Dr. Kellogg recommend supportive measures inpatient upper endoscopy not planned at this time. Discharge planning. Follow-up in office 3-4 weeks after discharge for reevaluation. Thank you for this kind referral and the opportunity to participate in the care of your patient. This consultation was discussed with Dr. Kellogg. The impression and plan of care have been directed as dictated.
--- NOTE | 2017-01-18 10:41 | PN ---
PROGRESS NOTE DATE OF SERVICE: 01/17/2017. REASON FOR FOLLOW UP: Pneumonia. INTERVAL HISTORY: The patient is afebrile. She is breathing comfortably. Denies significant chest pain or shortness of breath. Minimal cough. Not bringing up any sputum. The patient has been complaining of some abdominal pain. No nausea, vomiting. No diarrhea. Currently the patient is constipated. PHYSICAL EXAMINATION: On examination, blood pressure is 116/46 with a pulse of 77, temperature 97.6. She is 98% on 4 L nasal cannula. General description is an elderly female lying in bed, in no distress. RESPIRATORY SYSTEM: Unlabored breathing. Clear to auscultation anteriorly. HEART: S1, S2. Regular rate and rhythm. ABDOMEN: Soft, no tenderness. LABS: BUN of 17 and creatinine 1.02. DIAGNOSTIC IMPRESSION AND PLAN: 1. Patient admitted to the hospital with mental status changes, multifactorial with likely component of pneumonia. She is currently on pip-tazobactam. That will be continued; however, as no resistant organism has been grown, on discharge will finish therapy with oral Avelox. Family present at bedside. Questions answered. 2. Positive urine culture with VRE likely contamination. Will need therapy for the same. MMODL / IJN: [id number] /
[2017-01-18] MEDS ORDERED: BISACODYL 10 MG SUPP RECTAL STA (12:31)
[2017-01-18] MEDS: MULTIVITAMINS, THERA 1 EACH TAB PO SCH (12:42)
--- NOTE | 2017-01-18 12:51 | P.PN ---
Subjective This is a 76-year-old morbidly obese female patient who was the left debilitated following a bout of urosepsis that was complicated by prolonged ventilator-dependent history failure around 13 years ago. Since then the patient has been bedridden, significantly debilitated, has crippling deformities both in upper and lower extremities and she has not ambulated. She was living in a fpc in the [place] area. More recently the patient underwent her hospitalization at [facility]. She was given a diagnosis of a pneumonia involving the right lower lobe. Hospital- acquired pneumonia was suspected and the patient was treated with antibiotics and due to proximity to her daughter's house the patient got [place] [facility] [place]. Yesterday, the patient got transferred from the fpc to the emergency department as the patient was having some difficulties in breathing, her pulse ox was around 87-89% on 5 L of oxygen by nasal cannula, her blood sugar was 168 , her temperature was 98.6 and her respiration was 18 with a blood pressure of 100/52. Pneumonia was suspected. The patient was having also some minimal congested cough. She was brought into the emergency department where a chest x- ray was done and showed a infiltration of the right lung and a small right- sided pleural effusion and right lower lobe pulmonary infiltrate. There was also cardiomegaly. The patient was started on a combination of Zosyn and vancomycin. She is comfortable for now. She utilizes a CPAP/BiPAP machine at the fpc and this was given to her at the time of discharge from , andstudy was done and she qualified to this apparatus by a blood gases that showed hypercapnia. 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 The patient has some minimal residual weakness on the left. No difficulties with speech. No difficulties with swallowing. No fever or chills. No hemoptysis. No pleurisy. Chronic edema lower extremities without any open wounds, ulcers at this point. The patient is seen again today 01/14/2017 in follow-up on the selective care unit. She is awake and alert in no acute distress. She is maintaining good O2 saturations the upper 90s on 4 L/m per nasal cannula. She denies any worsening shortness of breath. She has a loose nonproductive cough. No chills or night sweats. She's been afebrile. Hemodynamically stable. Her urine culture is positive for group D enterococcus. She remains on Zosyn and vancomycin. On 01/15/2017 the patient is being seen in follow-up. The patient is doing well. She is resting comfortably in bed. She was found to have a VRE in her urine and the vancomycin was discontinued and the patient was started on daptomycin. The patient remains also on Zosyn. Chest x-ray findings are stable. She is not having respiratory distress. No chest pain. No pleurisy. No hemoptysis. No change in mental status changes. She is resting comfortably in bed. She is bedridden. She is taking daily Lasix doses. No fever. No chills. On 01/16/2017 the patient is being seen in follow-up. She continues to feel okay. No specific complaints pH is not wearing her CPAP. She has no significant respiratory distress. No cough sputum production chest tightness or wheezing. She is being cheered for an underlying VRE urinary tract infection. No fever. No chills. No change in mental status. Pulse ox remained around 93% on 4 liters of oxygen by nasal cannula. On 01/17/2017 the patient remains stable. She is having some vague abdominal discomfort and this apparently has been a chronic ongoing problem for this patient. No chills. No fever. No respiratory distress. Laying down comfortably in bed. No nausea. No vomiting. The electrolytes are all within normal limits. The patient is seen again today 01/18/2017 in follow-up on the regular medical floor. She is resting quite comfortably in bed. She denies any shortness of breath, cough or congestion. She is having some abdominal discomfort after eating meals. Denies no nausea or vomiting. Her daughter is at the bedside and does have concerns in this regard. Otherwise no other complaints. Objective - Vital Signs Vital signs: Vital Signs Temp 97.6 F 01/18/17 07:00 Pulse 80 01/18/17 12:24 Resp 18 01/18/17 07:00 BP 112/56 01/18/17 07:00 Pulse Ox 99 01/18/17 07:00 Intake & Output 01/17/17 01/18/17 01/18/17 18:59 06:59 18:59 Intake Total 200 250 Output Total 0 Balance 200 250 Weight 109 kg Intake: Oral 200 250 Output: Stool 0 Other: Voiding Method Incontinent Incontinent Incontinent # Voids 2 1 # Bowel Movements 1 1 - Exam Morbidly obese, calm and comfortable, nonacute distress. She is resting comfortably in bed. Head exam was generally normal. There was no scleral icterus or corneal arcus. Mucous membranes were moist. Neck is supple and short and the patient has significant crowding of the posterior oropharynx and the scar of previous tracheostomy tube insertion is seen over the anterior neck. Lung sounds are diminished in lung bases. There are some bibasilar crackles. No wheezes or rhonchi.Cardiac exam revealed the PMI to be normally situated and sized. The rhythm was regular and no extrasystoles were noted during several minutes of auscultation. The first and second heart sounds were normal and physiologic splitting of the second heart sound was noted. There were no murmurs, rubs, clicks, or gallops. Abdomen is morbidly obese soft nontender. No direct tenderness rebound tensile guarding. Organs cannot be accurately palpated. No ascites. Extremities show chronic edema and chronic deformities in the ankles, feet, and the wrist and the fingers bilaterally. The patient has no open wounds or sores. Sensation is diminished. Motor function in the lower extremity 0-5, 3 out of 5 in the upper extremity. Neurologically, the patient is awake and alert and following commands and answering questions appropriately. - Labs CBC & Chem 7: 01/18/17 08:12 01/18/17 08:12 Labs: Abnormal Lab Results - Last 24 Hours (Table) 01/18/17 01/18/17 Range/Units 08:12 08:12 RBC 3.36 L (3.80-5.40) m/uL Hgb 9.5 L (11.4-16.0) gm/dL Hct 31.8 L (34.0-46.0) % MCHC 29.8 L (31.0-37.0) g/dL RDW 16.7 H (11.5-15.5) % Chloride 96 L (98-107) mmol/L Carbon Dioxide 38 H (22-30) mmol/L Microbiology - Last 24 Hours (Table) 01/12/17 15:49 Blood Culture - Preliminary Blood No Growth after 120 hours Assessment and Plan Plan: Assessment 1 right leg pulmonary infiltrate, with possible hospital-acquired pneumonia which is ongoing or chronic or recurrent. The patient is currently on a combination of Zosyn and vancomycin which give the patient adequate gram- negative and anaerobic coverage. We'll monitor chest x-ray. Aspiration precautions. Swallow evaluation was noted. 2 recent authorization for right lung pneumonia at [facility] in [place] 3 morbid obesity 4 bedridden, and the patient has not ambulated for the past 13 years at least. Chronic contracture deformity in lower extremities and upper extremities bilaterally. 5 history of urine checked infection 6 hypertension 7 hyperlipidemia 8 hypothyroidism 9 hepatic peripheral neuropathy 10 depression 11 anxiety disorder 12 acid reflux 13 his history of urosepsis and prolonged respiratory failure due to complications of sepsis requiring insertion and subsequent removal of tracheostomy tube. 14 chronic normocytic anemia Plan The patient was seen and evaluated by Dr. Perrin. She is currently stable from the pulmonary standpoint. We'll continue with her current medications including antibiotics, bronchodilators, diuretics. The plan is to transfer back to [facility] once cleared medically. She was seen by GI services and was initiated on omeprazole and Carafate. No plans for endoscopy at this time. Will follow the patient on as-needed basis.
[2017-01-18] MEDS: SENNOSIDES-DOCUSATE SODIUM 1 EACH TAB PO SCH ×2 (13:24→13:37)
--- NOTE | 2017-01-18 15:08 | P.PN ---
Subjective This is a 76-year-old female patient of Dr. Elizabeth currently residing at [facility] with past medical history COPD, hypertension, obstructive sleep apnea on BiPAP at nighttime, chronic pain, gastric esophageal reflux disease, hypothyroidism, ALLERGIC rhinitis, osteoarthritis, idiopathic peripheral autonomic neuropathy, chronic urinary tract infections, vitamin D deficiency, morbid obesity patient was recently hospitalized at the [facility] in [facility] with HCAP and acute UTI at that time she was treated with IV antibiotic and she was sent to [facility] on the [place] for physical therapy rehabilitation, patient has been coughing quite a bit of phlegm over the last few days with yellowish greenish phlegm her daughter came to check on her and she asked to be transferred to the emergency department at [facility] for evaluation of possible HCAP. 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 01/14: Echocardiogram reveals EF of 55-60% with mild concentric left ventricular hypertrophy, severe pulmonary hypertension, mild mitral regurgitation, severe tricuspid regurgitation. Patient has been seen and followed by Dr. Arita from pulmonary medicine and Dr. Aguilar from cardiology. She is continued on IV Lasix. Patient states that her breathing is better today. She denies having cough or sputum production. Lower extremity edema is improved. 01/15: Urine culture is positive for VRE and started on daptomycin during the night. Discussed with Dr. Borrero as urinalysis was negative. No need for treatment and daptomycin will be discontinued. Patient will be continued on only Zosyn at this time. Lasix 40 mg daily will be changed to 20 mg orally daily. Patient states that she had a good night she slept okay during the night. 01/16: Patient states she continues to feel improvement. Patient does relate that she is not wearing her CPAP because she is afraid. The Nursing to Provide the Patient with Xanax Prior to Bedtime to Help with This. Patient Is Complaining of Constipation. Stool Softener Added. She Has Been Afebrile and Pulse Ox Is 93% on 4 L Nasal Cannula. Waffle Boots to Be Added. Anticipate Discharge Back to [facility] on Tuesday. 01/17:No new complaints. She did have a bowel movement yesterday. She refused waffle boots. Her cpap is not here for her to use. Patient will be moved to [facility] today with plan to transfer back to [facility] tomorrow. 01/18: Patient was seen by GI initially with no plan for any procedure and continue PPI. Upon review of previous outpatient studies EGD was requested of Dr. Isbell due to finding of intrinsic esophageal mass. Patient is complaining of constipation although she did have a bowel movement this morning. Dulcolax suppository added and Senokot. Objective - Vital Signs Vital signs: Vital Signs Temp 97.4 F L 01/18/17 14:58 Pulse 84 01/18/17 14:58 Resp 18 01/18/17 14:58 BP 117/64 01/18/17 14:58 Pulse Ox 99 01/18/17 14:58 Intake & Output 01/17/17 01/18/17 01/18/17 18:59 06:59 18:59 Intake Total 200 250 Output Total 0 Balance 200 250 Weight 109 kg Intake: Oral 200 250 Output: Stool 0 Other: Voiding Method Incontinent Incontinent Incontinent # Voids 2 3 # Bowel Movements 1 1 - Exam General appearance: mild distress, obese - EENT Eyes: anicteric sclerae, EOMI, PERRLA, no ptosis, no scleral icterus, normal appearance ENT: hearing grossly normal, NA/AT, normal oropharynx, no thrush, no tonsillar exudates Ears: bilateral: normal - Neck Neck: no lymphadenopathy, normal ROM, no rigidity, no stridor, no thyromegaly Carotids: bilateral: upstroke delayed Thyroid: bilateral: normal size - Respiratory Respiratory: bilateral: diminished, negative: dullness, rales, rhonchi, wheezing , prolonged expiration, prolonged inspiration - Cardiovascular Rhythm: regular Heart sounds: normal: S1, S2 Abnormal Heart Sounds: systolic murmur, no rub, S3 Gallop, no click - Gastrointestinal General gastrointestinal: normal bowel sounds, soft, no splenomegaly, no tenderness, umbilical hernia, no ventral hernia - Integumentary Integumentary: normal, normal turgor - Neurologic Neurologic: focal deficits (bilateral lower extremity paraparesis.) - Musculoskeletal Musculoskeletal: no gait normal, generalized weakness - Psychiatric Psychiatric: A&O x's 3, no appropriate affect, intact judgment & insight - Labs CBC & Chem 7: 01/18/17 08:12 01/18/17 08:12 Labs: Abnormal Lab Results - Last 24 Hours (Table) 01/18/17 01/18/17 Range/Units 08:12 08:12 RBC 3.36 L (3.80-5.40) m/uL Hgb 9.5 L (11.4-16.0) gm/dL Hct 31.8 L (34.0-46.0) % MCHC 29.8 L (31.0-37.0) g/dL RDW 16.7 H (11.5-15.5) % Chloride 96 L (98-107) mmol/L Carbon Dioxide 38 H (22-30) mmol/L Microbiology - Last 24 Hours (Table) 01/12/17 15:49 Blood Culture - Preliminary Blood No Growth after 120 hours Assessment and Plan Plan: 1. Acute respiratory insufficiency (no failure) secondary to right lower lobe pneumonia with the right-sided effusion as well as acute on chronic diastolic heart failure. Continue Lasix 20 mg oral every 24 hours, Zosyn 3.375 g IV piggyback every 8 hours, sputum culture, blood culture, urine culture, infectious disease consultation, pulmonary consultation, cardiology consultation , echocardiogram for evaluation of LV function, monitor magnesium, BUN and creatinine, monitor the patient the oxygenation, continue DuoNeb 3 mL nebulization 4 times every day. Monitor the patient weight on a daily basis. 2. Right lower lobe pneumonia with right-sided pleural effusion with sepsis. Continue oxygen support, continue Zosyn 3.375 g IV piggyback every 8 hours, continue DuoNeb 3 mL nebulization 4 times every day, pulmonary consultation. 3. Acute on chronic diastolic heart failure. Continue Toprol-XL 25 mg orally once every day, continue patient on Lasix 40 mg IV push every 24 hours, continue to monitor input and output and daily weight, echocardiogram to be done to evaluate LV function. 4. Recent history of HCAP and UTI with sepsis at [facility] in [place]. Continue treatment as in paragraph #1. 5. GERD. Continue Protonix 40 mg orally once every day. 6. Hypertension and hypertensive cardiovascular disease. Continue Toprol-XL 25 mg orally once every day, amlodipine 5 mg orally once every day. 7. Hyperlipidemia. Low-cholesterol diet. 8. Hypothyroidism. Continue Synthroid 125 g orally once every day. 9. Peripheral neuropathy. Continue gabapentin 200 mg orally twice every day. 10. Depressive disorder, recurrent. Continue patient on Cymbalta 60 mg orally once every day and Lexapro 10 mg orally once every day. 11. Osteoarthritis with joint deformities including the right hand as well as bilateral lower extremity's. 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 12. Anxiety disorder, generalized. Continue patient on Lexapro 10 mg orally once every day. 13. ALLERGIC rhinitis. Continue patient on Claritin 10 mg orally once every day. 14. DVT prophylaxis. Continue Lovenox 40 mg subcutaneously every 24 hours. 15. GI prophylaxis. Continue Protonix 40 mg orally once every day. 16. Hyponatremia, resolved. 17. Chronic abdominal pain for which GI has been requested to do EGD. 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 Discharge plan: Return to [facility]. Impression and plan of care have been directed as dictated by the signing physician. Mary Souza nurse practitioner acting as scribe for signing physician.
[2017-01-18] MEDS: LIDOCAINE 5% PATCH TOPICAL SCH (17:53)
--- NOTE | 2017-01-18 20:53 | PN ---
PROGRESS NOTE DATE OF SERVICE: 01/18/2017. REASON FOR FOLLOWUP: Pneumonia. INTERVAL HISTORY: The patient is afebrile. She is breathing comfortably. Denies chest pain, shortness of breath. Minimal cough. Just drainage. Still complaining of constipation. Did have a good bowel movement. EXAMINATION: Blood pressure is 117/54 with a pulse of 84, temperature 97.4, she is 99% on 4 L nasal cannula. General description is an elderly female lying in bed, in no distress. RESPIRATORY SYSTEM: Unlabored breathing. Clear to auscultation anteriorly. The heart is S1, S2. Regular rate and rhythm. ABDOMEN: Soft, no tenderness. LABS: Hemoglobin 9.5, white count 7.7, BUN of 15, creatinine 0.99. DIAGNOSTIC IMPRESSION AND PLAN: Patient admitted to the hospital with concern for pneumonia. Patient has shown overall improvement on Zosyn with plan to finish therapy with p.o. Avelox for another week, 400 daily. Daughter was present at bedside. All their questions were answered. MMODL / IJN: [id number] /
[2017-01-18] MEDS: QUEtiapine 50 MG TAB PO SCH (21:39)
[2017-01-18] MEDS: ALPRAZolam 0.25 MG TAB PO PRN (21:41)
[2017-01-19] MEDS: PIPERACILLIN-TAZOBACTAM 3.375 GM in DEXTROSE/WATER 1 50ML.BAG IVPB SCH ×3 (05:03→21:53)
[2017-01-19] MEDS: LEVOTHYROXINE 125 MCG TAB PO SCH (06:23)
[2017-01-19] MEDS: IPRATROPIUM-ALBUTEROL 3 ML NEB INHALATION SCH ×4 (08:04→20:40)
[2017-01-19] MEDS: ENOXAPARIN 40 MG/0.4 ML SYRINGE SQ SCH (08:50)
[2017-01-19] MEDS: CALCIUM CARB-VIT D 500MG-200UN 1 EACH TAB PO SCH ×2 (08:50→20:08)
[2017-01-19] MEDS: CHOLECALCIFEROL 1,000 UNIT TAB PO SCH (08:50)
[2017-01-19] MEDS: HYDROcodone/APAP 7.5-325MG 1 EACH TAB PO SCH ×2 (08:58→20:04)
[2017-01-19] MEDS: ESCITALOPRAM 10 MG TAB PO SCH (08:59)
[2017-01-19] MEDS: DULoxetine HCL 60 MG CAPSULE.DR PO SCH ×2 (08:59→20:06)
[2017-01-19] MEDS: FUROSEMIDE 20 MG TAB PO SCH (08:59)
[2017-01-19] MEDS: ALPRAZolam 0.25 MG TAB PO PRN ×2 (08:59→20:05)
[2017-01-19] MEDS: TOPIRAMATE 25 MG TAB PO SCH ×2 (09:00→20:07)
[2017-01-19] MEDS: GABAPENTIN 100 MG CAP PO SCH ×2 (09:00→20:06)
[2017-01-19] MEDS: SENNOSIDES-DOCUSATE SODIUM 1 EACH TAB PO SCH (09:00)
[2017-01-19] MEDS: METOPROLOL SUCCINATE (ER) 25 MG TAB.ER.24H PO SCH (09:00)
[2017-01-19] MEDS: amLODIPine 5 MG TAB PO SCH (09:00)
[2017-01-19] MEDS: PANTOPRAZOLE 40 MG TABLET PO SCH (09:01)
[2017-01-19] MEDS: NYSTATIN 100,000UNIT/GM CREAM 30 GM TUBE TOPICAL SCH ×2 (09:02→20:10)
[2017-01-19] MEDS: NYSTATIN 100,000 UNIT/GM POWD 15 GM TOPICAL SCH ×2 (09:02→16:28)
[2017-01-19] MEDS: LORATADINE 10 MG TAB PO SCH (09:02)
--- NOTE | 2017-01-19 10:24 | CDI ---
In responding to this query, please exercise your independent professional judgment. The [facility] Coding Staff and Clinical Documentation Specialists appreciate your assistance in clarifying documentation, maintaining compliance with coding guidelines, accurately documenting patients condition and capturing severity of illness. The fact that a question is asked does not imply that any particular answer is desired or expected. Communication forms are a method of clarifying documentation and are not made part of the Legal Health Record. Thank you in advance for your clarification. Last Revision, March 2015 Timothy Marley [address] [address] Documentation Clarification Form Date: 01/19/2017 10:04:00 AM From: Bhavani Love RN, CDS Admit Date: 01/12/2017 7:37:00 PM Patient Name: Marti Garcia Visit Number: [id number] Dr. Gracia lEizabeth, 76 year old patient presented to ED for Altered Mental Status and increased reported weakness and inability to feed herself. Patient admitted for Sepsis and Pneumonia. Patient resides in [facility] post complication of history of prolonged respiratory failure and is bed/chair bound. Patient noted to be "confused" per ED note and Nurses notes 01/13 and 01/14. Now documented as "Alert and oriented x 3 " per Nursing Risk Factors: recent hospitalization for Sepsis/Pneumonia/UTI, Clinical Indicators: Confused on presentation per ED note, "Oriented to person and place only, confused" er nursing notes 01/13 and 01/14, "mental status changes multifactorial with likely component of pneumonia" per ID progress notes Treatment: NS bolus x2, IV Vanco, Daptomycin, now Zosyn for Sepsis and Pneumonia treatment, ID and Pulmonary consults In your professional opinion, can you please clarify the specific type of encephalopathy, if known? Metabolic Encephalopathy Septic Encephalopathy Toxic Encephalopathy Other, please specify Unable to determine Please document in your progress notes and discharge summary in order to capture severity of illness and risk of mortality. Include clinical findings that support your diagnosis. FYI: Press F11 to launch patient chart. Thank you. LINDSEY
--- NOTE | 2017-01-19 10:46 | P.PN ---
Subjective This is a 76-year-old morbidly obese female patient who was the left debilitated following a bout of urosepsis that was complicated by prolonged ventilator-dependent history failure around 13 years ago. Since then the patient has been bedridden, significantly debilitated, has crippling deformities both in upper and lower extremities and she has not ambulated. She was living in a correction in the [place] area. More recently the patient underwent her hospitalization at [facility]. She was given a diagnosis of a pneumonia involving the right lower lobe. Hospital- acquired pneumonia was suspected and the patient was treated with antibiotics and due to proximity to her daughter's house the patient got moved to [facility] [place] the [place]. Yesterday, the patient got transferred from the correction to the emergency department as the patient was having some difficulties in breathing, her pulse ox was around 87-89% on 5 L of oxygen by nasal cannula, her blood sugar was 168 , her temperature was 98.6 and her respiration was 18 with a blood pressure of 100/52. Pneumonia was suspected. The patient was having also some minimal congested cough. She was brought into the emergency department where a chest x- ray was done and showed a infiltration of the right lung and a small right- sided pleural effusion and right lower lobe pulmonary infiltrate. There was also cardiomegaly. The patient was started on a combination of Zosyn and vancomycin. She is comfortable for now. She utilizes a CPAP/BiPAP machine at the correction and this was given to her at the time of discharge from [facility], andstudy was done and she qualified to this apparatus by a blood gases that showed hypercapnia. 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 The patient has some minimal residual weakness on the left. No difficulties with speech. No difficulties with swallowing. No fever or chills. No hemoptysis. No pleurisy. Chronic edema lower extremities without any open wounds, ulcers at this point. The patient is seen again today 01/14/2017 in follow-up on the selective care unit. She is awake and alert in no acute distress. She is maintaining good O2 saturations the upper 90s on 4 L/m per nasal cannula. She denies any worsening shortness of breath. She has a loose nonproductive cough. No chills or night sweats. She's been afebrile. Hemodynamically stable. Her urine culture is positive for group D enterococcus. She remains on Zosyn and vancomycin. On 01/15/2017 the patient is being seen in follow-up. The patient is doing well. She is resting comfortably in bed. She was found to have a VRE in her urine and the vancomycin was discontinued and the patient was started on daptomycin. The patient remains also on Zosyn. Chest x-ray findings are stable. She is not having respiratory distress. No chest pain. No pleurisy. No hemoptysis. No change in mental status changes. She is resting comfortably in bed. She is bedridden. She is taking daily Lasix doses. No fever. No chills. On 01/16/2017 the patient is being seen in follow-up. She continues to feel okay. No specific complaints pH is not wearing her CPAP. She has no significant respiratory distress. No cough sputum production chest tightness or wheezing. She is being cheered for an underlying VRE urinary tract infection. No fever. No chills. No change in mental status. Pulse ox remained around 93% on 4 liters of oxygen by nasal cannula. On 01/17/2017 the patient remains stable. She is having some vague abdominal discomfort and this apparently has been a chronic ongoing problem for this patient. No chills. No fever. No respiratory distress. Laying down comfortably in bed. No nausea. No vomiting. The electrolytes are all within normal limits. The patient is seen again today 01/18/2017 in follow-up on the regular medical floor. She is resting quite comfortably in bed. She denies any shortness of breath, cough or congestion. She is having some abdominal discomfort after eating meals. Denies no nausea or vomiting. Her daughter is at the bedside and does have concerns in this regard. Otherwise no other complaints. The patient is seen again today 01/19/2017 in follow-up on the regular medical floor. She remains awake and alert in no acute distress. She did have ongoing issues with abdominal discomfort and the plan is for EGD today. Hemoglobin stable at 9.5. She denies any worsening shortness of breath, cough or congestion. She is afebrile. No leukocytosis. Objective - Vital Signs Vital signs: Vital Signs Temp 98.2 F 09/06/17 07:00 Pulse 80 01/19/17 08:16 Resp 16 01/19/17 07:00 BP 124/76 01/19/17 07:00 Pulse Ox 94 L 01/19/17 07:00 Intake & Output 01/18/17 01/19/17 01/19/17 18:59 06:59 18:59 Intake Total 100 Balance 100 Weight 109 kg 112.5 kg Intake: Intake, IV Titration 100 Amount Piperacillin-Tazobactam 3 100 .375 gm In Dextrose/Water 1 50ml.bag @ 12.5 mls/hr IVPB Q8H MARLA Rx#: [id number] Other: Voiding Method Diaper Diaper Incontinent Incontinent # Voids 3 2 # Bowel Movements 1 - Exam Morbidly obese, calm and comfortable, nonacute distress. She is resting comfortably in bed. Head exam was generally normal. There was no scleral icterus or corneal arcus. Mucous membranes were moist. Neck is supple and short and the patient has significant crowding of the posterior oropharynx and the scar of previous tracheostomy tube insertion is seen over the anterior neck. Lung sounds are diminished in lung bases. There are some bibasilar crackles. No wheezes or rhonchi.Cardiac exam revealed the PMI to be normally situated and sized. The rhythm was regular and no extrasystoles were noted during several minutes of auscultation. The first and second heart sounds were normal and physiologic splitting of the second heart sound was noted. There were no murmurs, rubs, clicks, or gallops. Abdomen is morbidly obese soft nontender. No direct tenderness rebound tensile guarding. Organs cannot be accurately palpated. No ascites. Extremities show chronic edema and chronic deformities in the ankles, feet, and the wrist and the fingers bilaterally. The patient has no open wounds or sores. Sensation is diminished. Motor function in the lower extremity 0-5, 3 out of 5 in the upper extremity. Neurologically, the patient is awake and alert and following commands and answering questions appropriately. - Labs CBC & Chem 7: 01/18/17 08:12 01/18/17 08:12 Labs: Microbiology - Last 24 Hours (Table) 01/12/17 15:49 Blood Culture - Final Blood No Growth after 144 hours Assessment and Plan Plan: Assessment 1 right lung pulmonary infiltrate, with possible hospital-acquired pneumonia which is ongoing or chronic or recurrent. The patient is currently on a combination of Zosyn and vancomycin which give the patient adequate gram- negative and anaerobic coverage. We'll monitor chest x-ray. Aspiration precautions. Swallow evaluation was noted. 2 recent hospitalization for right lung pneumonia at [facility] in [place] 3 morbid obesity 4 bedridden, and the patient has not ambulated for the past 13 years at least. Chronic contracture deformity in lower extremities and upper extremities bilaterally. 5 history of urine tract infection, enterococcus faecium VRE 6 hypertension 7 hyperlipidemia 8 hypothyroidism 9 hepatic peripheral neuropathy 10 depression 11 anxiety disorder 12 acid reflux 13 his history of urosepsis and prolonged respiratory failure due to complications of sepsis requiring insertion and subsequent removal of tracheostomy tube. 14 chronic normocytic anemia 15 abdominal discomfort plan is for EGD today 01/19/2017. Plan The patient was seen and evaluated by Dr. Perrin. The plan is for EGD today. She is currently stable from the pulmonary standpoint. We'll continue with her current medications including antibiotics, bronchodilators, diuretics. The plan is to transfer back to [facility] once cleared medically. Will follow the patient on as-needed basis.
[2017-01-19] MEDS: MULTIVITAMINS, THERA 1 EACH TAB PO SCH (11:24)
[2017-01-19] MEDS ORDERED: RX INFO: IV CONTRAST WAS GIVEN 1 EACH MISC MISCELLANE PRN (11:40)
--- NOTE | 2017-01-19 14:22 | P.PN ---
Subjective This is a 76-year-old female patient of Dr. Elizabeth currently residing at [facility] with past medical history COPD, hypertension, obstructive sleep apnea on BiPAP at nighttime, chronic pain, gastric esophageal reflux disease, hypothyroidism, ALLERGIC rhinitis, osteoarthritis, idiopathic peripheral autonomic neuropathy, chronic urinary tract infections, vitamin D deficiency, morbid obesity patient was recently hospitalized at the [facility] in [facility] with HCAP and acute UTI at that time she was treated with IV antibiotic and she was sent to [facility] on the [place] for physical therapy rehabilitation, patient has been coughing quite a bit of phlegm over the last few days with yellowish greenish phlegm her daughter came to check on her and she asked to be transferred to the emergency department at [facility] for evaluation of possible HCAP. 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 01/14: Echocardiogram reveals EF of 55-60% with mild concentric left ventricular hypertrophy, severe pulmonary hypertension, mild mitral regurgitation, severe tricuspid regurgitation. Patient has been seen and followed by Dr. Arita from pulmonary medicine and Dr. Aguilar from cardiology. She is continued on IV Lasix. Patient states that her breathing is better today. She denies having cough or sputum production. Lower extremity edema is improved. 01/15: Urine culture is positive for VRE and started on daptomycin during the night. Discussed with Dr. Borrero as urinalysis was negative. No need for treatment and daptomycin will be discontinued. Patient will be continued on only Zosyn at this time. Lasix 40 mg daily will be changed to 20 mg orally daily. Patient states that she had a good night she slept okay during the night. 01/16: Patient states she continues to feel improvement. Patient does relate that she is not wearing her CPAP because she is afraid. The Nursing to Provide the Patient with Xanax Prior to Bedtime to Help with This. Patient Is Complaining of Constipation. Stool Softener Added. She Has Been Afebrile and Pulse Ox Is 93% on 4 L Nasal Cannula. Waffle Boots to Be Added. Anticipate Discharge Back to [facility] on Tuesday. 01/17:No new complaints. She did have a bowel movement yesterday. She refused waffle boots. Her cpap is not here for her to use. Patient will be moved to med- surg today with plan to transfer back to [facility] tomorrow. 01/18: Patient was seen by GI initially with no plan for any procedure and continue PPI. Upon review of previous outpatient studies EGD was requested of Dr. Isbell due to finding of intrinsic esophageal mass. Patient is complaining of constipation although she did have a bowel movement this morning. Dulcolax suppository added and Senokot. 01/19: Patient is scheduled for EGD at 3 PM today. We will also ask for CAT scan of the abdomen and pelvis with contrast to be done tomorrow morning. Patient did have 2 bowel movements yesterday evening. Anticipate patient will be ready to transfer back to [facility] tomorrow afternoon. Noted: Reviewed documentation from [facility]. Patient presented with a pulse ox of 8789% on 5 L nasal cannula. Patient presented with acute hypoxic respiratory failure. Objective - Vital Signs Vital signs: Vital Signs Temp 98.2 F 01/19/17 07:00 Pulse 84 01/19/17 11:29 Resp 16 01/19/17 07:00 BP 124/76 01/19/17 07:00 Pulse Ox 94 L 01/19/17 07:00 Intake & Output 01/18/17 01/19/17 01/19/17 18:59 06:59 18:59 Intake Total 100 Balance 100 Weight 109 kg 112.5 kg Intake: Intake, IV Titration 100 Amount Piperacillin-Tazobactam 3 100 .375 gm In Dextrose/Water 1 50ml.bag @ 12.5 mls/hr IVPB Q8H [facility] Rx#: [id number] Other: Voiding Method Diaper Diaper Incontinent Incontinent # Voids 3 2 # Bowel Movements 1 - Exam General appearance: mild distress, obese - EENT Eyes: anicteric sclerae, EOMI, PERRLA, no ptosis, no scleral icterus, normal appearance ENT: hearing grossly normal, NA/AT, normal oropharynx, no thrush, no tonsillar exudates Ears: bilateral: normal - Neck Neck: no lymphadenopathy, normal ROM, no rigidity, no stridor, no thyromegaly Carotids: bilateral: upstroke delayed Thyroid: bilateral: normal size - Respiratory Respiratory: bilateral: diminished, negative: dullness, rales, rhonchi, wheezing , prolonged expiration, prolonged inspiration - Cardiovascular Rhythm: regular Heart sounds: normal: S1, S2 Abnormal Heart Sounds: systolic murmur, no rub, S3 Gallop, no click - Gastrointestinal General gastrointestinal: normal bowel sounds, soft, no splenomegaly, no tenderness, umbilical hernia, no ventral hernia - Integumentary Integumentary: normal, normal turgor - Neurologic Neurologic: focal deficits (bilateral lower extremity paraparesis.) - Musculoskeletal Musculoskeletal: no gait normal, generalized weakness - Psychiatric Psychiatric: A&O x's 3, no appropriate affect, intact judgment & insight - Labs CBC & Chem 7: 01/18/17 08:12 01/18/17 08:12 Labs: Microbiology - Last 24 Hours (Table) 01/12/17 15:49 Blood Culture - Final Blood No Growth after 144 hours Assessment and Plan Plan: 1. Acute hypoxic respiratory failure secondary to right lower lobe pneumonia with the right-sided effusion as well as acute on chronic diastolic heart failure. Continue Lasix 20 mg oral every 24 hours, Zosyn 3.375 g IV piggyback every 8 hours, sputum culture, blood culture, urine culture, infectious disease consultation, pulmonary consultation, cardiology consultation, echocardiogram for evaluation of LV function, monitor magnesium, BUN and creatinine, monitor the patient the oxygenation, continue DuoNeb 3 mL nebulization 4 times every day. Monitor the patient weight on a daily basis. 2. Right lower lobe pneumonia with right-sided pleural effusion with sepsis. Continue oxygen support, continue Zosyn 3.375 g IV piggyback every 8 hours, continue DuoNeb 3 mL nebulization 4 times every day, pulmonary consultation. 3. Acute on chronic diastolic heart failure. Continue Toprol-XL 25 mg orally once every day, continue patient on Lasix 40 mg IV push every 24 hours, continue to monitor input and output and daily weight, echocardiogram. 4. Recent history of HCAP and UTI with sepsis at [facility] in [place]. Continue treatment as in paragraph #1. 5. GERD. Continue Protonix 40 mg orally once every day. 6. Hypertension and hypertensive cardiovascular disease. Continue Toprol-XL 25 mg orally once every day, amlodipine 5 mg orally once every day. 7. Hyperlipidemia. Low-cholesterol diet. 8. Hypothyroidism. Continue Synthroid 125 g orally once every day. 9. Peripheral neuropathy. Continue gabapentin 200 mg orally twice every day. 10. Depressive disorder, recurrent. Continue patient on Cymbalta 60 mg orally once every day and Lexapro 10 mg orally once every day. 11. Osteoarthritis with joint deformities including the right hand as well as bilateral lower extremity's. 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 12. Anxiety disorder, generalized. Continue patient on Lexapro 10 mg orally once every day. 13. ALLERGIC rhinitis. Continue patient on Claritin 10 mg orally once every day. 14. DVT prophylaxis. Continue Lovenox 40 mg subcutaneously every 24 hours. 15. GI prophylaxis. Continue Protonix 40 mg orally once every day. 16. Hyponatremia, resolved. 17. Chronic abdominal pain for which GI has been requested to do EGD. 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 CAT scan of the abdomen and pelvis with contrast. Discharge plan: Return to [facility]. Impression and plan of care have been directed as dictated by the signing physician. Mary Souza nurse practitioner acting as scribe for signing physician.
[2017-01-19] MEDS ORDERED: MIDAZOLAM 2 MG/2 ML VIAL ONE (14:23)
[2017-01-19] MEDS ORDERED: IV FLUID CONTINUATION 700 ML IV ONE (14:23)
[2017-01-19] MEDS ORDERED: LIDOCAINE 1% INJ 10MG/ML (20 ML MDV) ONE (14:23)
[2017-01-19] MEDS ORDERED: PROPOFOL 10 MG/ML 20 ML VIAL IV ONE (14:23)
[2017-01-19 14:33] VITALS: BMI 38.8
--- NOTE | 2017-01-19 14:36 | P.PCN ---
Date of Procedure: 01/19/17 Preoperative Diagnosis: Postoperative Diagnosis: Procedure(s) Performed: BRIEF HISTORY: Patient is a 76-year-old, pleasant, white female, scheduled for an upper endoscopy as a part of evaluation of chronic epigastric pain and intermittent dysphagia to solids PROCEDURE PERFORMED: Esophagogastroduodenoscopy with biopsy . PREOPERATIVE DIAGNOSIS: Epigastric pain and intermittent dysphagia to solids IV sedation per anesthesia. PROCEDURE: After informed consent was obtained, the patient was brought into the endoscopy unit. IV sedation was administered by Anesthesia under continuous monitoring. Initially the Olympus GIF-140 video endoscope was inserted into the mouth. Esophagus intubated without any difficulty. It was gradually advanced into the stomach and duodenum and carefully examined. The bulb and the second part of the duodenum appeared normal. The scope at this time was withdrawn to the stomach, adequately insufflated with air, and upon careful examination, mucosa of the antrum, had mild gastritis and biopsies were done from this area. The body, cardia and the fundus appeared normal. The scope was then withdrawn into the esophagus. The GE junction was located at 39 cm from the incisors. The esophagus appeared normal. There were 2 superficial erosions seen at the GE junction consistent with LA grade B reflux esophagitis. The rest of the esophagus appeared normal and the patient tolerated the procedure well. IMPRESSION: 1. Mild antral gastritis 2. LA grade B reflux esophagitis RECOMMENDATIONS: The findings of this examination were discussed with the patient as well as a family. She will continue with Prilosec 20 minute grams daily and follow antireflux measures. She was advised to follow with the biopsy results. Implants: Indications for Procedure: Operative Findings: Description of Procedure:
[2017-01-19] MEDS: LIDOCAINE 5% PATCH TOPICAL SCH ×2 (16:30→16:31)
[2017-01-19] MEDS: QUEtiapine 50 MG TAB PO SCH (20:07)
[2017-01-20] MEDS: NYSTATIN 100,000 UNIT/GM POWD 15 GM TOPICAL SCH ×2 (00:29→10:36)
[2017-01-20] MEDS: PIPERACILLIN-TAZOBACTAM 3.375 GM in DEXTROSE/WATER 1 50ML.BAG IVPB SCH ×2 (06:01→12:57)
[2017-01-20] MEDS: LEVOTHYROXINE 125 MCG TAB PO SCH (06:26)
[2017-01-20] MEDS: IOHEXOL 350 MG/ML 25 ML BOTTLE (ORAL USE) PO PRN ×2 (07:55→09:02)
[2017-01-20] MEDS: PANTOPRAZOLE 40 MG TABLET PO SCH (08:01)
[2017-01-20 08:04] VITALS: RESP 18
[2017-01-20] MEDS: IPRATROPIUM-ALBUTEROL 3 ML NEB INHALATION SCH ×3 (08:44→15:38)
--- NOTE | 2017-01-20 10:19 | CT ---
EXAMINATION TYPE: CT abdomen pelvis w con DATE OF EXAM: 01/20/2017 HISTORY: Periumbilical abdominal pain CT DLP: 2207.90mGycm Automated Exposure Control for Dose Reduction was Utilized. CONTRAST: CT scan of the abdomen and pelvis is performed with oral and with IV Contrast, patient injected with 100 ml mL of Omnipaque 300. COMPARISON: None. FINDINGS: Evaluation is suboptimal due to patient's large body habitus as well as artifact from retai pacheco barium from swallow study January 11. LUNG BASES: Heart size is mildly enlarged. There is partial visualization of small bilateral pleural effusions. There is associated compressive atelectasis in both lung bases. There is slightly more foc al irregular nodular opacity in the right mid lung measuring 9 mm on axial image 2. Respiratory motio n artifact is seen making evaluation suboptimal. LIVER/GB: No significant abnormality is appreciated. PANCREAS: No significant abnormality is seen. SPLEEN: No significant abnormality is seen. ADRENALS: No significant abnormality is seen. KIDNEYS: No excretion is evident bilaterally on delayed phased images. No hydronephrosis is evident. There is some cortical thinning present bilaterally. Visualized portion of bladder is unremarkable. BOWEL: A small hiatal hernia is present. Contrast is seen in nondistended small bowel loops. Fecal ma terial is seen in nondistended colon. There are some diverticula in visualized portion of sigmoid col on. Retained barium in the rectum is present this causes streak artifact limiting evaluation of pelvi c structures including most of sigmoid colon and rectum. UTERUS/ADNEXA: Suboptimally evaluated. LYMPH NODES: No greater than 1cm abdominal lymph nodes are appreciated. There is suboptimal evaluatio n for pelvic adenopathy noted. OSSEOUS STRUCTURES: Metallic artifact from left hip arthroplasty causes streak artifact limiting eval uation of pelvic structures. There is multilevel moderate to severe spurring and disc space narrowing throughout the thoracolumbar spine. There is facet arthropathy noted in mid to lower lumbar levels. OTHER: Rounded nodules are seen throughout the anterior abdominal wall could reflect subcutaneous gra nulomas from medicine injection as there are scattered bilaterally and diffusely most prominent in th e mid abdomen. Mild diffuse subcutaneous edema or soft tissue anasarca is noted. There is mild to mod erate calcified plaque of the abdominal aorta extending into branch vessels. IMPRESSION: Suboptimal study without bowel obstruction. Suspect persistent CHF exacerbation as there is cardiomegaly with small bilateral pleural effusions redemonstrated. Clinical correlation advised.
[2017-01-20] MEDS: amLODIPine 5 MG TAB PO SCH (10:30)
[2017-01-20] MEDS: CALCIUM CARB-VIT D 500MG-200UN 1 EACH TAB PO SCH (10:30)
[2017-01-20] MEDS: CHOLECALCIFEROL 1,000 UNIT TAB PO SCH (10:31)
[2017-01-20] MEDS: ESCITALOPRAM 10 MG TAB PO SCH (10:31)
[2017-01-20] MEDS: DULoxetine HCL 60 MG CAPSULE.DR PO SCH (10:31)
[2017-01-20] MEDS: ENOXAPARIN 40 MG/0.4 ML SYRINGE SQ SCH (10:31)
[2017-01-20] MEDS: HYDROcodone/APAP 7.5-325MG 1 EACH TAB PO SCH (10:32)
[2017-01-20] MEDS: GABAPENTIN 100 MG CAP PO SCH (10:32)
[2017-01-20] MEDS: FUROSEMIDE 20 MG TAB PO SCH (10:32)
[2017-01-20] MEDS: ALPRAZolam 0.25 MG TAB PO PRN (10:33)
[2017-01-20] MEDS: LIDOCAINE 5% PATCH TOPICAL SCH (10:35)
[2017-01-20] MEDS: LORATADINE 10 MG TAB PO SCH (10:35)
[2017-01-20] MEDS: NYSTATIN 100,000UNIT/GM CREAM 30 GM TUBE TOPICAL SCH (10:36)
[2017-01-20] MEDS: METOPROLOL SUCCINATE (ER) 25 MG TAB.ER.24H PO SCH (10:36)
[2017-01-20] MEDS: TOPIRAMATE 25 MG TAB PO SCH (10:37)
[2017-01-20] MEDS: SENNOSIDES-DOCUSATE SODIUM 1 EACH TAB PO SCH (10:37)
--- NOTE | 2017-01-20 11:01 | XR ---
EXAMINATION TYPE: XR chest 1V portable DATE OF EXAM: 01/20/2017 HISTORY: Shortness of breath. COMPARISON: 01/15/17 TECHNIQUE: Single view of the chest is submitted. FINDINGS: Demonstrated are scattered senescent parenchymal change. There is no evidence for focal infiltrate. The heart is stable. Hilar and mediastinal structures are within normal limits. Degenerative changes are seen of the dorsal spine. IMPRESSION: 1. Chronic changes without evidence for acute pulmonary disease.
--- NOTE | 2017-01-20 12:15 | P.PN ---
Subjective Principal diagnosis: epigastric pain s/p EGD evaulation of epigastric pain abnormal UGI; reflux esophagitis/ gastritis. CT abdomen this morning no bowel obstruction. Objective - Vital Signs Vital signs: Vital Signs Temp 97.2 F L 01/20/17 07:00 Pulse 82 01/20/17 12:11 Resp 18 01/20/17 08:46 BP 102/62 01/20/17 07:00 Pulse Ox 95 01/20/17 07:00 Intake & Output 01/19/17 01/20/17 01/20/17 18:59 06:59 18:59 Intake Total 100 Output Total 0 Balance 100 Weight 112.5 kg 117.5 kg Intake: IV 100 Output: Stool 0 Other: Voiding Method Incontinent Incontinent # Voids 2 1 # Bowel Movements 0 - Exam General appearance: The patient is alert, oriented, in no acute distress. HET: Head is normocephalic and atraumatic. Pupils are equal and reactive. Oropharynx is clear without lesions. Neck: Supple without lymphadenopathy. Trachea midline. Heart: S1 S2. Regular rate and rhythm. Lungs: No crackles or wheezes are heard. Abdomen: Soft, mild midepigastric tenderness, nondistended with bowel sounds. No peritoneal signs. No palpable organomegaly or masses. Extremities: Crippling deformities upper/lower bilateral stroma days. Neurological: Bedridden. Generalized weakness. - Labs CBC & Chem 7: 01/18/17 08:12 01/18/17 08:12 Assessment and Plan (1) Epigastric pain Narrative/Plan: reflux esophagitis gastritis Status: Acute Plan: 1. Prilosec 20 mg daily. Anti-reflux measures. DC per medicine. Assessment and plan of care discussed with Dr. Kellogg.
--- NOTE | 2017-01-20 12:29 | PN ---
PROGRESS NOTE DATE OF SERVICE: 01/19/2017. REASON FOR FOLLOWUP: Pneumonia. INTERVAL HISTORY: The patient is afebrile. She is scheduled to go for a this afternoon. Patient was seen on rounds this morning. She has been breathing comfortably. Minimal cough, no chest pain. No abdominal pain. Did have 2 bowel movements. PHYSICAL EXAMINATION: Blood pressure 180/74 with a pulse of 84, temperature 97.6, she is 98% on 4 L nasal cannula. General description is an elderly female lying in bed, in no distress. RESPIRATORY SYSTEM: Unlabored breathing. Clear to auscultation anteriorly. HEART: S1, S2. Regular rate and rhythm. ABDOMEN: Soft, no tenderness. LABS: Hemoglobin 9.5, white count of 7.7, BUN of 15, creatinine 0.99. DIAGNOSTIC IMPRESSION AND PLAN: 1. Patient admitted to the hospital with mental status changes and a component of pneumonia, currently on Zosyn, improving. Will plan to finish therapy with p.o. Avelox for another week. 2. Positive urine culture likely is a contamination. No need to give therapy for the same thing. MMODL / IJN: [id number] /
[2017-01-20] MEDS: MULTIVITAMINS, THERA 1 EACH TAB PO SCH (12:57)
--- NOTE | 2017-01-20 13:30 | P.DS ---
Providers Date of admission: 01/12/17 19:37 Expected date of discharge: 01/20/17 Attending physician: Agustin Vega Consults: 01/12/17 19:39 Consult Physician Routine Consulting Provider: Katina Borrero Consult Reason/Comments: HCAP, sepsis Do you want consulting provider notified?: Yes, Notify in am 01/13/17 11:02 Consult Physician Routine Consulting Provider: Celena Arita Consult Reason/Comments: pneumonia Do you want consulting provider notified?: Yes Consult Physician Routine Consulting Provider: Kamlesh Yuan Consult Reason/Comments: chf Do you want consulting provider notified?: Yes 01/17/17 12:36 Consult Physician Routine Consulting Provider: Martha Kellogg Consult Reason/Comments: abd pain ongoing for extended period of time, worse when eating meals Do you want consulting provider notified?: Yes Primary care physician: Gracia Elizabeth [facility] Course: This is a 76-year-old female patient of Dr. Elizabeth currently residing at [facility] with past medical history COPD, hypertension, obstructive sleep apnea on BiPAP at nighttime, chronic pain, gastric esophageal reflux disease, hypothyroidism, ALLERGIC rhinitis, osteoarthritis, idiopathic peripheral autonomic neuropathy, chronic urinary tract infections, vitamin D deficiency, morbid obesity patient was recently hospitalized at the [facility] in [facility] with HCAP and acute UTI at that time she was treated with IV antibiotic and she was sent to [facility] on the [place] for physical therapy rehabilitation, patient has been coughing quite a bit of phlegm over the last few days with yellowish greenish phlegm her daughter came to check on her and she asked to be transferred to the emergency department at [facility] for evaluation of possible HCAP. 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 01/14: Echocardiogram reveals EF of 55-60% with mild concentric left ventricular hypertrophy, severe pulmonary hypertension, mild mitral regurgitation, severe tricuspid regurgitation. Patient has been seen and followed by Dr. Arita from pulmonary medicine and Dr. Aguilar from cardiology. She is continued on IV Lasix. Patient states that her breathing is better today. She denies having cough or sputum production. Lower extremity edema is improved. 01/15: Urine culture is positive for VRE and started on daptomycin during the night. Discussed with Dr. Borrero as urinalysis was negative. No need for treatment and daptomycin will be discontinued. Patient will be continued on only Zosyn at this time. Lasix 40 mg daily will be changed to 20 mg orally daily. Patient states that she had a good night she slept okay during the night. 01/16: Patient states she continues to feel improvement. Patient does relate that she is not wearing her CPAP because she is afraid. The Nursing to Provide the Patient with Xanax Prior to Bedtime to Help with This. Patient Is Complaining of Constipation. Stool Softener Added. She Has Been Afebrile and Pulse Ox Is 93% on 4 L Nasal Cannula. Waffle Boots to Be Added. Anticipate Discharge Back to [facility] on Tuesday. 01/17:No new complaints. She did have a bowel movement yesterday. She refused waffle boots. Her cpap is not here for her to use. Patient will be moved to med- surg today with plan to transfer back to [facility] tomorrow. 01/18: Patient was seen by GI initially with no plan for any procedure and continue PPI. Upon review of previous outpatient studies EGD was requested of Dr. Isbell due to finding of intrinsic esophageal mass. Patient is complaining of constipation although she did have a bowel movement this morning. Dulcolax suppository added and Senokot. 01/19: Patient is scheduled for EGD at 3 PM today. We will also ask for CAT scan of the abdomen and pelvis with contrast to be done tomorrow morning. Patient did have 2 bowel movements yesterday evening. Anticipate patient will be ready to transfer back to residential tomorrow afternoon. Noted: Reviewed documentation from residential. Patient presented with a pulse ox of 8789% on 5 L nasal cannula. Patient presented with acute hypoxic respiratory failure. 01/20: Patient underwent EGD with Dr. Isbell that showed mild antral gastritis and LA grade B reflux esophagitis with recommendations to continue Prilosec 20 mg daily and follow anti-reflex measures. Biopsy was obtained. Repeat chest x- ray reveals chronic changes without evidence of acute pulmonary disease. CAT scan of the abdomen and pelvis with contrast reveals some optimal study without bowel obstruction. Suspect persistent heart failure exacerbation as there is cardiomegaly with small bilateral pleural effusions redemonstrated. Patient continues to feel like she has to have a bowel movement. Bowel regime adjusted for [facility]. Patient will be discharged back to [facility] today in stable condition. Discharge diagnoses: 1. Acute respiratory insufficiency (no failure) secondary to right lower lobe pneumonia with the right-sided effusion as well as acute on chronic diastolic heart failure. 2. Right lower lobe pneumonia with right-sided pleural effusion with sepsis. 3. Acute on chronic diastolic heart failure. 4. Recent history of HCAP and UTI with sepsis at [facility] in [place]. 5. GERD. 6. Hypertension and hypertensive cardiovascular disease. 7. Hyperlipidemia. 8. Hypothyroidism. 9. Peripheral neuropathy. 10. Depressive disorder, recurrent. 11. Osteoarthritis with joint deformities including the right hand as well as bilateral lower extremity's. 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 12. Anxiety disorder, generalized. 13. ALLERGIC rhinitis. 14. Hyponatremia, resolved. 15. Chronic abdominal pain for which GI has been requested to do EGD. 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 Discharge plan: Return to [facility] under the care of Dr. Elizabeth. Impression and plan of care have been directed as dictated by the signing physician. Mary Souza nurse practitioner acting as scribe for signing physician. Patient Condition at Discharge: Good Plan - Discharge Summary New Discharge Prescriptions: New Furosemide [Lasix] 20 mg PO DAILY tab Moxifloxacin HCl [Avelox] 400 mg PO DAILY #7 tablet Bisacodyl [Dulcolax] 10 mg PO RAVI #5 tablet.dr Elam-Docusate Sodium [Senokot-S] 2 each PO DAILY tab Continue amLODIPine [Norvasc] 5 mg PO DAILY Aspirin 81 mg PO DAILY Nystatin 100,000Unit/gm Cream [Mycostatin Cream] 1 applic TOPICAL Q12H Dimethicone/Zinc Oxide [Inzo Zinc Oxide Barrier Cream] 1 applic TOPICAL Q12H Acetaminophen Tab [Tylenol] 500 mg PO Q6H PRN MDD 4000MG PER 24HR PRN Reason: Pain Or Fever > 100.5 Sodium Chloride [Saline Mist] 2 spray EA NOSTRIL DIRECTED PRN PRN Reason: DRYNESS Ondansetron HCl [Zofran] 4 mg PO Q6H PRN PRN Reason: Nausea Polyethylene Glycol 3350 [Miralax] 17 gm PO DAILY PRN PRN Reason: Constipation Magnesium Hydroxide [Milk of Magnesia] 2,400 mg PO DAILY PRN PRN Reason: Constipation Ipratropium-Albuterol Nebulize [Duoneb 0.5 mg-3 mg/3 ml Soln] 3 ml INHALATION RT-Q4H PRN PRN Reason: SOB/WHEEZING Topiramate [Topamax] 50 mg PO BID Calcium Carb-Vit D 500Mg-200Un [Oscal 500+D] 1 tab PO BID Gabapentin [Neurontin] 200 mg PO BID DULoxetine HCL [Cymbalta] 60 mg PO BID Multivits, W-Ca,Fe,Oth Min [Therapeutic M] 1 tab PO DAILY Metoprolol Succinate [Toprol XL] 25 mg PO DAILY Cholecalciferol [Vitamin D3] 2,000 unit PO DAILY QUEtiapine [SEROquel] 50 mg PO HS Omeprazole [PriLOSEC] 20 mg PO AC-BRKFST Loratadine [Claritin] 10 mg PO DAILY Lidocaine 5% Patch [Lidoderm 5% Patch] 1 patch TOPICAL DAILY@1800 Levothyroxine Sodium [Synthroid] 125 mcg PO DAILY Escitalopram [Lexapro] 10 mg PO DAILY Dimethicone/Zinc Oxide [Inzo Zinc Oxide Barrier Cream] 1 applic TOPICAL DIRECTED PRN PRN Reason: PREVENTION ALPRAZolam [Xanax] 0.25 mg PO BID PRN #60 tab PRN Reason: Anxiety Hydrocodone/Acetaminophen [[place] 7.5-325] 1 tab PO Q6HR PRN #60 tab PRN Reason: Pain Hydrocodone/Acetaminophen [[place] 7.5-325] 1 tab PO BID #60 tab Discontinued Docusate [Colace] 100 mg PO DAILY PRN PRN Reason: Constipation Discharge Medication List Acetaminophen Tab [Tylenol] 500 mg PO Q6H PRN MDD 4000MG PER 24HR 01/12/17 [ History] Aspirin 81 mg PO DAILY 01/12/17 [History] Calcium Carb-Vit D 500Mg-200Un [Oscal 500+D] 1 tab PO BID 01/12/17 [History] Cholecalciferol [Vitamin D3] 2,000 unit PO DAILY 01/12/17 [History] DULoxetine HCL [Cymbalta] 60 mg PO BID 01/12/17 [History] Dimethicone/Zinc Oxide [Inzo Zinc Oxide Barrier Cream] 1 applic TOPICAL DIRECTED PRN 01/12/17 [History] Dimethicone/Zinc Oxide [Inzo Zinc Oxide Barrier Cream] 1 applic TOPICAL Q12H [History] Escitalopram [Lexapro] 10 mg PO DAILY 01/12/17 [History] Gabapentin [Neurontin] 200 mg PO BID 01/12/17 [History] Ipratropium-Albuterol Nebulize [Duoneb 0.5 mg-3 mg/3 ml Soln] 3 ml INHALATION RT -Q4H PRN 01/12/17 [History] Levothyroxine Sodium [Synthroid] 125 mcg PO DAILY 01/12/17 [History] Lidocaine 5% Patch [Lidoderm 5% Patch] 1 patch TOPICAL DAILY@1800 01/12/17 [ History] Loratadine [Claritin] 10 mg PO DAILY 01/12/17 [History] Magnesium Hydroxide [Milk of Magnesia] 2,400 mg PO DAILY PRN 01/12/17 [History] Metoprolol Succinate [Toprol XL] 25 mg PO DAILY 01/12/17 [History] Multivits,Th W-Ca,Fe,Oth Min [Therapeutic M] 1 tab PO DAILY 01/12/17 [History] Nystatin 100,000Unit/gm Cream [Mycostatin Cream] 1 applic TOPICAL Q12H 01/12/17 [History] Omeprazole [PriLOSEC] 20 mg PO AC-BRKFST 01/12/17 [History] Ondansetron HCl [Zofran] 4 mg PO Q6H PRN 01/12/17 [History] Polyethylene Glycol 3350 [Miralax] 17 gm PO DAILY PRN 01/12/17 [History] QUEtiapine [SEROquel] 50 mg PO HS 01/12/17 [History] Sodium Chloride [Saline Mist] 2 spray EA NOSTRIL DIRECTED PRN 01/12/17 [ History] Topiramate [Topamax] 50 mg PO BID 01/12/17 [History] amLODIPine [Norvasc] 5 mg PO DAILY 01/12/17 [History] ALPRAZolam [Xanax] 0.25 mg PO BID PRN #60 tab 01/18/17 [Rx] Furosemide [Lasix] 20 mg PO DAILY tab 01/18/17 [Rx] Hydrocodone/Acetaminophen [[place] 7.5-325] 1 tab PO BID #60 tab 01/18/17 [Rx] Hydrocodone/Acetaminophen [[place] 7.5-325] 1 tab PO Q6HR PRN #60 tab 01/18/17 [Rx ] Moxifloxacin HCl [Avelox] 400 mg PO DAILY #7 tablet 01/18/17 [Rx] Bisacodyl [Dulcolax] 10 mg PO RAVI #5 tablet. 01/20/17 [Rx] Sennosides-Docusate Sodium [Senokot-S] 2 each PO DAILY tab 01/20/17 [Rx] Follow up Appointment(s)/Referral(s): Gracia Elizabeth MD [Primary Care Provider] - 1-2 days Martha Kellogg MD [STAFF PHYSICIAN] - 3 Weeks [facility], [NON-STAFF] - 1 Week Patient Instructions/Handouts: Heart Failure (DC), Gastritis (DC), Sepsis (GEN) Activity/Diet/Wound Care/Special Instructions: Cardiac, low fat diet. VRE precautions. Change positions every 2 hours while awake, fall precautions. Discharge Disposition: TRANSFER TO SNF/ECF
--- NOTE | 2017-01-20 13:34 | P.PN ---
Subjective This is a 76-year-old morbidly obese female patient who was the left debilitated following a bout of urosepsis that was complicated by prolonged ventilator-dependent history failure around 13 years ago. Since then the patient has been bedridden, significantly debilitated, has crippling deformities both in upper and lower extremities and she has not ambulated. She was living in a long-term in the [place] area. More recently the patient underwent her hospitalization at [facility]. She was given a diagnosis of a pneumonia involving the right lower lobe. Hospital- acquired pneumonia was suspected and the patient was treated with antibiotics and due to proximity to her daughter's house the patient got moved to [facility] on the [place]. Yesterday, the patient got transferred from the long-term to the emergency department as the patient was having some difficulties in breathing, her pulse ox was around 87-89% on 5 L of oxygen by nasal cannula, her blood sugar was 168 , her temperature was 98.6 and her respiration was 18 with a blood pressure of 100/52. Pneumonia was suspected. The patient was having also some minimal congested cough. She was brought into the emergency department where a chest x- ray was done and showed a infiltration of the right lung and a small right- sided pleural effusion and right lower lobe pulmonary infiltrate. There was also cardiomegaly. The patient was started on a combination of Zosyn and vancomycin. She is comfortable for now. She utilizes a CPAP/BiPAP machine at the long-term and this was given to her at the time of discharge from [facility], andstudy was done and she qualified to this apparatus by a blood gases that showed hypercapnia. 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 The patient has some minimal residual weakness on the left. No difficulties with speech. No difficulties with swallowing. No fever or chills. No hemoptysis. No pleurisy. Chronic edema lower extremities without any open wounds, ulcers at this point. The patient is seen again today 01/14/2017 in follow-up on the selective care unit. She is awake and alert in no acute distress. She is maintaining good O2 saturations the upper 90s on 4 L/m per nasal cannula. She denies any worsening shortness of breath. She has a loose nonproductive cough. No chills or night sweats. She's been afebrile. Hemodynamically stable. Her urine culture is positive for group D enterococcus. She remains on Zosyn and vancomycin. On 01/15/2017 the patient is being seen in follow-up. The patient is doing well. She is resting comfortably in bed. She was found to have a VRE in her urine and the vancomycin was discontinued and the patient was started on daptomycin. The patient remains also on Zosyn. Chest x-ray findings are stable. She is not having respiratory distress. No chest pain. No pleurisy. No hemoptysis. No change in mental status changes. She is resting comfortably in bed. She is bedridden. She is taking daily Lasix doses. No fever. No chills. On 01/16/2017 the patient is being seen in follow-up. She continues to feel okay. No specific complaints pH is not wearing her CPAP. She has no significant respiratory distress. No cough sputum production chest tightness or wheezing. She is being cheered for an underlying VRE urinary tract infection. No fever. No chills. No change in mental status. Pulse ox remained around 93% on 4 liters of oxygen by nasal cannula. On 01/17/2017 the patient remains stable. She is having some vague abdominal discomfort and this apparently has been a chronic ongoing problem for this patient. No chills. No fever. No respiratory distress. Laying down comfortably in bed. No nausea. No vomiting. The electrolytes are all within normal limits. The patient is seen again today 01/18/2017 in follow-up on the regular medical floor. She is resting quite comfortably in bed. She denies any shortness of breath, cough or congestion. She is having some abdominal discomfort after eating meals. Denies no nausea or vomiting. Her daughter is at the bedside and does have concerns in this regard. Otherwise no other complaints. The patient is seen again today 01/19/2017 in follow-up on the regular medical floor. She remains awake and alert in no acute distress. She did have ongoing issues with abdominal discomfort and the plan is for EGD today. Hemoglobin stable at 9.5. She denies any worsening shortness of breath, cough or congestion. She is afebrile. No leukocytosis. The patient is seen again today 01/20/2017 in follow-up on the regular medical floor. She is just back from a abdominal CT. There was no evidence of bowel obstruction. There was some cardiomegaly and small bilateral pleural effusions. She denies any worsening shortness of breath, cough or congestion. She is maintaining O2 saturations in the mid 90s on 4 L per nasal cannula. She' s been afebrile. Hemodynamically stable. Objective - Vital Signs Vital signs: Vital Signs Temp 97.2 F L 01/20/17 07:00 Pulse 82 01/20/17 12:11 Resp 18 01/20/17 08:46 BP 102/62 01/20/17 07:00 Pulse Ox 95 01/20/17 07:00 Intake & Output 01/19/17 01/20/17 01/20/17 18:59 06:59 18:59 Intake Total 100 Output Total 0 Balance 100 Weight 112.5 kg 117.5 kg Intake: IV 100 Output: Stool 0 Other: Voiding Method Incontinent Incontinent # Voids 2 1 # Bowel Movements 0 - Exam Morbidly obese, calm and comfortable, nonacute distress. She is resting comfortably in bed. Head exam was generally normal. There was no scleral icterus or corneal arcus. Mucous membranes were moist. Neck is supple and short and the patient has significant crowding of the posterior oropharynx and the scar of previous tracheostomy tube insertion is seen over the anterior neck. Lung sounds are diminished in lung bases. There are some bibasilar crackles. No wheezes or rhonchi.Cardiac exam revealed the PMI to be normally situated and sized. The rhythm was regular and no extrasystoles were noted during several minutes of auscultation. The first and second heart sounds were normal and physiologic splitting of the second heart sound was noted. There were no murmurs, rubs, clicks, or gallops. Abdomen is morbidly obese soft nontender. No direct tenderness rebound tensile guarding. Organs cannot be accurately palpated. No ascites. Extremities show chronic edema and chronic deformities in the ankles, feet, and the wrist and the fingers bilaterally. The patient has no open wounds or sores. Sensation is diminished. Motor function in the lower extremity 0-5, 3 out of 5 in the upper extremity. Neurologically, the patient is awake and alert and following commands and answering questions appropriately. - Labs CBC & Chem 7: 01/18/17 08:12 01/18/17 08:12 Assessment and Plan Plan: Assessment 1 right lung pulmonary infiltrate, with possible hospital-acquired pneumonia which is ongoing or chronic or recurrent. The patient is currently on a combination of Zosyn and vancomycin which give the patient adequate gram- negative and anaerobic coverage. We'll monitor chest x-ray. Aspiration precautions. Swallow evaluation was noted. 2 recent hospitalization for right lung pneumonia at [facility] in [place] 3 morbid obesity 4 bedridden, and the patient has not ambulated for the past 13 years at least. Chronic contracture deformity in lower extremities and upper extremities bilaterally. 5 history of urine tract infection, enterococcus faecium VRE 6 hypertension 7 hyperlipidemia 8 hypothyroidism 9 hepatic peripheral neuropathy 10 depression 11 anxiety disorder 12 acid reflux 13 his history of urosepsis and prolonged respiratory failure due to complications of sepsis requiring insertion and subsequent removal of tracheostomy tube. 14 chronic normocytic anemia [address] scan today revealed no obstruction. Plan The patient was seen and evaluated by Dr. Perrin. She is currently stable from the pulmonary standpoint. We'll continue with her current medications including antibiotics, bronchodilators, diuretics. She is on home oxygen. Will follow the patient on as-needed basis.
[2017-01-20 16:21] VITALS: BP 118/70; PULSE 74; TEMP 97.4
--- NOTE | 2017-01-21 08:54 | PN ---
PROGRESS NOTE DATE OF SERVICE: 01/20/2017 REASON FOR FOLLOWUP: Pneumonia. INTERVAL HISTORY: The patient is seen on rounds this morning. The patient has been breathing comfortably. Denies chest pain or shortness of breath with very minimal cough. No abdominal pain, no nausea, vomiting, or any diarrhea. PHYSICAL EXAMINATION: Blood pressure 118/70 with a pulse of 74, temperature 97.4, she is 96% on 4 L nasal cannula. General description is an elderly female, lying in bed in no distress. RESPIRATORY SYSTEM: Unlabored breathing. Clear to auscultation anteriorly. HEART: S1, S2. Regular rate and rhythm. ABDOMEN: Soft, no tenderness. LABS: Hemoglobin 9.5, white count 7.7 with a BUN of 15, creatinine 0.9. DIAGNOSTIC IMPRESSION AND PLAN: Patient in the hospital with mental status changes, likely a component of pneumonia. Overall improvement on Zosyn with plan to finish therapy with p.o. Avelox for another week. Continue supportive care. MMODL / IJN: [id number] /
== END 2017-01-20 16:47 | DRG 871 ==
LOC: EC 15:02 → 6SEL 19:37 → 4MS4W 01-17 14:56
PROVIDERS: ADMIT Internal Medicine; ATTEND Internal Medicine
PROC: 0DB68ZX Excision of Stomach, Via Natural or Artificial Opening Endoscopic, Diagnostic (ICD-10-PCS; principal; 2017-01-19 08:25)
DX: A41.9 Sepsis, unspecified organism (principal); I50.33 Acute on chronic diastolic (congestive) heart failure; J18.9 Pneumonia, unspecified organism; G82.20 Paraplegia, unspecified; I27.2 Other secondary pulmonary hypertension; G62.9 Polyneuropathy, unspecified; I11.0 Hypertensive heart disease with heart failure; J44.0 Chronic obstructive pulmonary disease with (acute) lower respiratory infection; R13.10 Dysphagia, unspecified; E87.1 Hypo-osmolality and hyponatremia; D64.9 Anemia, unspecified; E66.01 Morbid (severe) obesity due to excess calories; G90.09 Other idiopathic peripheral autonomic neuropathy; I08.1 Rheumatic disorders of both mitral and tricuspid valves; E03.9 Hypothyroidism, unspecified; B95.2 Enterococcus as the cause of diseases classified elsewhere; E78.5 Hyperlipidemia, unspecified; F32.9 Major depressive disorder, single episode, unspecified; F41.1 Generalized anxiety disorder; G47.33 Obstructive sleep apnea (adult) (pediatric); G89.29 Other chronic pain; I49.3 Ventricular premature depolarization; J30.9 Allergic rhinitis, unspecified; K21.0 Gastro-esophageal reflux disease with esophagitis; K29.60 Other gastritis without bleeding; K59.00 Constipation, unspecified; M19.90 Unspecified osteoarthritis, unspecified site; Y95 Nosocomial condition; Z16.21 Resistance to vancomycin; Z96.642 Presence of left artificial hip joint; Z74.01 Bed confinement status; Z79.82 Long term (current) use of aspirin; Z79.899 Other long term (current) drug therapy; Z82.3 Family history of stroke; Z86.73 Personal history of transient ischemic attack (TIA), and cerebral infarction without residual deficits; Z87.440 Personal history of urinary (tract) infections; Z87.891 Personal history of nicotine dependence; Z88.3 Allergy status to other anti-infective agents; R06.89 Other abnormalities of breathing; T14.8 Other injury of unspecified body region
CPT/HCPCS: 36415; 43239; 70450; 71010; 71020; 74177; 80048; 80053; 81001; 82803; 83605; 83880; 84484; 85025; 85027; 85610; 85730; 86850; 86870; 86880; 86885; 86900; 86901; 86905; 87040; 87077; 87086; 87186; 88305; 88342; 93005; 93306; 94640; 94760; 96361; 96365; 96366; 96367; 99285

== ENCOUNTER 2017-07-21 11:24 | Inpatient (IN) | payer MEDICARE, OTHER ==
[2017-07-21] MEDS ORDERED: FUROSEMIDE 10 MG/ML 4 ML VIAL IV STA (11:40)
--- NOTE | 2017-07-21 12:17 | ED ---
SOB HPI - General Chief Complaint: Shortness of Breath Stated Complaint: ZAIRA Time Seen by Provider: 07/21/17 11:24 Source: patient, EMS, RN notes reviewed, old records reviewed Mode of arrival: EMS Limitations: physical limitation - History of Present Illness Initial Comments: This is a 77-year-old female with a history of multiple medical problems who presents from a long term by EMS with complaints of 3 days of worsening shortness of breath. Per paramedics she was short of breath with a low pulse oximetry. She was given a DuoNeb and route was some improvement she still feels short of breath. Her saturation was about 70% on room air improved to the 80s to 90s after oxygen and an updraft treatment. She denies any chest pain. She has no other complaints other than shortness of breath at this time. She probably did have symptoms of upper respiratory infection was placed on Levaquin and Tamiflu. She does have a history of CHF she was not given any Lasix this morning MD Complaint: shortness of breath - Related Data Home Medications Medication Instructions Recorded Confirmed Acetaminophen Tab [Tylenol] 500 mg PO Q6H PRN MDD 4000MG PER 01/12/17 07/21/17 24HR Aspirin 81 mg PO DAILY 01/12/17 07/21/17 Cholecalciferol [Vitamin D3] 2,000 unit PO DAILY 01/12/17 07/21/17 DULoxetine HCL [Cymbalta] 60 mg PO BID 01/12/17 07/21/17 Dimethicone/Zinc Oxide [Inzo Zinc 1 applic TOPICAL DIRECTED PRN 01/12/1712/31 Oxide Barrier Cream] Escitalopram [Lexapro] 5 - 10 mg PO DAILY 01/12/17 07/21/17 Gabapentin [Neurontin] 200 mg PO BID 01/12/17 07/21/17 Ipratropium-Albuterol Nebulize 3 ml INHALATION RT-QID 01/12/17 07/21/17 [Duoneb 0.5 mg-3 mg/3 ml Soln] Levothyroxine Sodium [Synthroid] 125 mcg PO DAILY@0600 01/12/17 07/21/17 Lidocaine 5% Patch [Lidoderm 5% 1 patch TOPICAL Q12H PRN MDD 2 01/12/17 07/21/17 Patch] patches Loratadine [Claritin] 10 mg PO DAILY 01/12/17 07/21/17 Magnesium Hydroxide [Milk of 2,400 mg PO DAILY PRN 01/12/17 07/21/17 Magnesia] Metoprolol Succinate [Toprol XL] 25 mg PO DAILY 01/12/17 07/21/17 Omeprazole [PriLOSEC] 20 mg PO DAILY@0600 01/12/17 07/21/17 Ondansetron HCl [Zofran] 4 mg PO Q6H PRN 01/12/17 07/21/17 Polyethylene Glycol 3350 [Miralax] 17 gm PO HS 01/12/17 07/21/17 Sodium Chloride [Saline Mist] 2 spray NASAL DIRECTED PRN 01/12/17 07/21/17 Topiramate [Topamax] 50 mg PO BID 01/12/17 07/21/17 amLODIPine [Norvasc] 5 mg PO DAILY 01/12/17 07/21/17 ALPRAZolam [Xanax] 0.25 mg PO TID 07/21/17 07/21/17 Anti-Fungal Powder 1 applic TOPICAL BID 07/21/17 07/21/17 Bismuth Subsalicylate 524 mg PO Q4H PRN 07/21/17 07/21/17 [Pepto-Bismol] Budesonide [Pulmicort] 1 mg INHALATION RT-BID 07/21/17 07/21/17 Depo-Medrol Susp 80mg/Ml 1 injection IM Q24H PRN 07/21/17 07/21/17 Furosemide [Lasix] 40 mg PO DAILY 07/21/17 07/21/17 Ipratropium-Albuterol Nebulize 3 ml INHALATION RT-Q4H PRN 07/21/17 07/21/17 [Duoneb 0.5 mg-3 mg/3 ml Soln] Levofloxacin [Levaquin] 500 mg PO DAILY 07/21/17 07/21/17 Lidocaine Hcl Soln 2% 1 injection IM Q24H PRN 07/21/17 07/21/17 Naldemedine Tosylate [Symproic] 0.2 mg PO DAILY 07/21/17 07/21/17 Oseltamivir [Tamiflu] 75 mg PO DAILY 07/21/17 07/21/17 QUEtiapine [SEROquel] 25 mg PO HS 07/21/17 07/21/17 Sennosides-Docusate Sodium 2 tab PO BID 07/21/17 07/21/17 [Senokot-S] Vitamins A and D [Vitamin A and D] 1 applic TOPICAL DAILY PRN 07/21/17 07/21/17 Vitamins A and D [Vitamin A and D] 1 applic TOPICAL Q12H 07/21/17 07/21/17 Previous Rx's Medication Instructions Recorded Hydrocodone/Acetaminophen [[place] 1 tab PO BID #60 tab 01/18/17 7.5-325] Hydrocodone/Acetaminophen [[place] 1 tab PO Q6HR PRN #60 tab 01/18/17 7.5-325] Allergies Allergy/AdvReac Type Severity Reaction Status Date / Time metronidazole [From Flagyl] Allergy Unknown Verified 07/21/17 11:42 Review of Systems ROS Statement: Those systems with pertinent positive or pertinent negative responses have been documented in the HPI. ROS Other: All systems not noted in ROS Statement are negative. Past Medical History Past Medical History: Heart Failure, COPD, GERD/Reflux, Hyperlipidemia, Hypertension, Musculoskeletal Disorder, Neurologic Disorder, Osteoarthritis (OA) , Sleep Apnea/CPAP/BIPAP, Thyroid Disorder Additional Past Medical History / Comment(s): COPD, hypertension, obstructive sleep apnea on BiPAP at nighttime, chronic pain, gastric esophageal reflux disease, hypothyroidism, ALLERGIC rhinitis, osteoarthritis, idiopathic peripheral autonomic neuropathy, chronic urinary tract infections, vitamin D deficiency, morbid obesity, acid reflux, chronic contractures and deformities in the upper and lower extremities mainly wrists and ankles and feet, osteoarthritis, generalized anxiety disorder, previous history of urinary tract infection, depression, idiopathic peripheral autonomic neuropathy, previous history of urosepsis with prolonged ventilator dependent respiratory failure. History of Any Multi-Drug Resistant Organisms: Unobtainable Date of last positivie culture/infection: 01/12/17 MDRO Source:: Urine Past Surgical History: Appendectomy, Orthopedic Surgery Additional Past Surgical History / Comment(s): PEG tube and trach placement with removal, left hip arthroplasty in 1995, insertion and removal of a tracheostomy tube. Past Psychological History: Anxiety, Depression Smoking Status: Former smoker Past Alcohol Use History: None Reported Past Drug Use History: None Reported - Past Family History Father Additional Family Medical History / Comment(s): at age 58 from a fall and head injury. Mother Additional Family Medical History / Comment(s): Mother at age 70 from a CVA. Brother(s) Additional Family Medical History / Comment(s): Patient has one brother with no major medical problems. Sister(s) Additional Family Medical History / Comment(s): Patient has one sister with no major medical problems. Daughter(s) Additional Family Medical History / Comment(s): Patient has 2 daughters no major medical problems. General Exam - General Exam Comments Initial Comments: This is a well-developed obese female who is awake alert oriented 3 Limitations: physical limitation General appearance: alert, in no apparent distress Head exam: Present: atraumatic, normocephalic, normal inspection Eye exam: Present: normal appearance, PERRL, EOMI. Absent: scleral icterus, conjunctival injection, periorbital swelling ENT exam: Present: mucous membranes dry Neck exam: Present: normal inspection. Absent: tenderness, meningismus, lymphadenopathy Respiratory exam: Present: wheezes, rales, rhonchi, decreased breath sounds Cardiovascular Exam: Present: tachycardia GI/Abdominal exam: Present: soft, normal bowel sounds, other (Obese abdomen). Absent: bruit, pulsatile mass, hernia Extremities exam: Present: tenderness, normal capillary refill. Absent: normal inspection, pedal edema Back exam: Absent: tenderness Neurological exam: Present: alert, oriented X3, CN II-XII intact Psychiatric exam: Present: normal affect, normal mood Skin exam: Present: warm, dry, intact Course Vital Signs 07/21/17 07/21/17 11:25 12:17 Temperature 99.4 F Pulse Rate 125 H 116 H Respiratory 28 H 28 H Rate Blood Pressure 146/85 152/95 O2 Sat by Pulse 87 L 95 Oximetry Medical Decision Making - Medical Decision Making I did reevaluate patient several occasions she is feeling somewhat improved though she still has wheezes and some rhonchi noted on examination. She is responding to therapy thus far but will require inpatient treatment. - Lab Data Result diagrams: 07/21/17 12:30 07/21/17 12:30 Lab Results 07/21/17 07/21/17 07/21/17 Range/Units 12:30 12:30 12:30 WBC 10.9 H (3.8-10.6) k/uL RBC 4.45 (3.80-5.40) m/uL Hgb 12.4 (11.4-16.0) gm/dL Hct 38.3 (34.0-46.0) % MCV 85.9 (80.0-100.0) fL MCH 27.9 (25.0-35.0) pg MCHC 32.5 (31.0-37.0) g/dL RDW 14.6 (11.5-15.5) % Plt Count 221 (150-450) k/uL Neutrophils % 89 % Lymphocytes % 6 % Monocytes % 4 % Eosinophils % 0 % Basophils % 0 % Neutrophils # 9.7 H (1.3-7.7) k/uL Lymphocytes # 0.6 L (1.0-4.8) k/uL Monocytes # 0.5 (0-1.0) k/uL Eosinophils # 0.1 (0-0.7) k/uL Basophils # 0.0 (0-0.2) k/uL Hypochromasia Slight PT (9.0-12.0) sec INR (<1.2) APTT (22.0-30.0) sec Sodium 137 (137-145) mmol/L Potassium 3.8 (3.5-5.1) mmol/L Chloride 93 L (98-107) mmol/L Carbon Dioxide 31 H (22-30) mmol/L Anion Gap 13 mmol/L BUN 26 H (7-17) mg/dL Creatinine 0.80 (0.52-1.04) mg/dL Est GFR (CKD-EPI)AfAm 82 (>60 ml/min/1.73 sqM) Est GFR (CKD-EPI)NonAf 72 (>60 ml/min/1.73 sqM) Glucose 118 H (74-99) mg/dL Plasma Lactic Acid Harry (0.7-2.0) mmol/L Calcium 9.3 (8.4-10.2) mg/dL Magnesium 1.7 (1.6-2.3) mg/dL Total Bilirubin 0.6 (0.2-1.3) mg/dL AST 22 (14-36) U/L ALT 18 (9-52) U/L Alkaline Phosphatase 49 (38-126) U/L Total Creatine Kinase <20 L (30-135) U/L CK-MB (CK-2) 0.6 (0.0-2.4) ng/mL CK-MB (CK-2) Rel Index Troponin I 0.020 (0.000-0.034) ng/mL NT-Pro-B Natriuret Pep pg/mL Total Protein 6.7 (6.3-8.2) g/dL Albumin 3.6 (3.5-5.0) g/dL 07/21/17 07/21/17 07/21/17 Range/Units 12:30 12:30 12:30 WBC (3.8-10.6) k/uL RBC (3.80-5.40) m/uL Hgb (11.4-16.0) gm/dL Hct (34.0-46.0) % MCV (80.0-100.0) fL MCH (25.0-35.0) pg MCHC (31.0-37.0) g/dL RDW (11.5-15.5) % Plt Count (150-450) k/uL Neutrophils % % Lymphocytes % % Monocytes % % Eosinophils % % Basophils % % Neutrophils # (1.3-7.7) k/uL Lymphocytes # (1.0-4.8) k/uL Monocytes # (0-1.0) k/uL Eosinophils # (0-0.7) k/uL Basophils # (0-0.2) k/uL Hypochromasia PT 10.2 (9.0-12.0) sec INR 1.0 (<1.2) APTT 25.6 (22.0-30.0) sec Sodium (137-145) mmol/L Potassium (3.5-5.1) mmol/L Chloride (98-107) mmol/L Carbon Dioxide (22-30) mmol/L Anion Gap mmol/L BUN (7-17) mg/dL Creatinine (0.52-1.04) mg/dL Est GFR (CKD-EPI)AfAm (>60 ml/min/1.73 sqM) Est GFR (CKD-EPI)NonAf (>60 ml/min/1.73 sqM) Glucose (74-99) mg/dL Plasma Lactic Acid Harry 1.3 (0.7-2.0) mmol/L Calcium (8.4-10.2) mg/dL Magnesium (1.6-2.3) mg/dL Total Bilirubin (0.2-1.3) mg/dL AST (14-36) U/L ALT (9-52) U/L Alkaline Phosphatase (38-126) U/L Total Creatine Kinase (30-135) U/L CK-MB (CK-2) (0.0-2.4) ng/mL CK-MB (CK-2) Rel Index Troponin I (0.000-0.034) ng/mL NT-Pro-B Natriuret Pep 3610 pg/mL Total Protein (6.3-8.2) g/dL Albumin (3.5-5.0) g/dL - EKG Data -: EKG Interpreted by Me (Sinus tachycardia with a occasional PVCs rate was 1: 15 MD 170 QRS 80 QT sin) - Radiology Data Radiology results: report reviewed (I did review the imaging and report is evidence of a left pleural effusion. Also early interstitial edema), image reviewed Disposition Clinical Impression: Acute exacerbation of chronic obstructive airways disease, Adult respiratory distress syndrome, Congestive heart failure, Hypoxemia Disposition: ADMITTED IP TO THIS HOSP Condition: Stable Referrals: Gracia Elizabeth MD [Primary Care Provider] - 1-2 days
[2017-07-21 12:48] LABS: Basophils % (A) 0 %; Eosinophils # (A) 0.1 k/uL (0-0.7); Eosinophils % (A) 0 %; HCT 38.3 % (34.0-46.0); HGB 12.4 gm/dL (11.4-16.0); Hypochromasia Slight; Lymphocytes # (A) 0.6 k/uL (1.0-4.8); Lymphocytes % (A) 6 %; MCH 27.9 pg (25.0-35.0); MCHC 32.5 g/dL (31.0-37.0); MCV 85.9 fL (80.0-100.0); Mean Platelet Volume 7.5; Monocytes # (A) 0.5 k/uL (0-1.0); Monocytes % (A) 4 %; Neutrophils # (A) 9.7 k/uL (1.3-7.7); Neutrophils % (A) 89 %; Platelet Count 221 k/uL (150-450); RBC 4.45 m/uL (3.80-5.40); RDW 14.6 % (11.5-15.5); WBC 10.9 k/uL (3.8-10.6)
--- NOTE | 2017-07-21 13:11 | XR ---
EXAMINATION TYPE: XR chest 1V portable DATE OF EXAM: 07/21/2017 COMPARISON: Prior chest x-ray 01/20/2017 HISTORY: Chest pain TECHNIQUE: Single frontal view of the chest is obtained. FINDINGS: Patient is rotated, technique somewhat apical lordotic. There are overlying cardiac leads. Heart remains enlarged, there is prominence of central vascularity and interstitium. No pneumothorax or sizable pleural effusion evident. Aorta is dense. IMPRESSION: Correlate for possible pulmonary venous hypertension and early interstitial edema. Follo w-up recommended.
[2017-07-21 13:15] LABS: Creatine Kinase <20 U/L (30-135)
[2017-07-21 13:16] LABS: Albumin 3.6 g/dL (3.5-5.0); Calcium 9.3 mg/dL (8.4-10.2); Magnesium 1.7 mg/dL (1.6-2.3); Potassium 3.8 mmol/L (3.5-5.1); Total Bilirubin 0.6 mg/dL (0.2-1.3); Total Protein 6.7 g/dL (6.3-8.2)
[2017-07-21 13:27] LABS: Partial Thromboplastin Time 25.6 sec (22.0-30.0); Prothrombin Time 10.2 sec (9.0-12.0)
[2017-07-21 13:28] LABS: Creatine Kinase MB 0.6 ng/mL (0.0-2.4)
[2017-07-21] MEDS ORDERED: SODIUM CHLORIDE 0.65% NASAL SPRAY 44 ML BTL NASAL PRN (15:18)
[2017-07-21] MEDS ORDERED: HYDROcodone/APAP 7.5-325MG 1 EACH TAB PO PRN (15:18)
[2017-07-21] MEDS ORDERED: ONDANSETRON 4 MG TAB PO PRN (15:18)
[2017-07-21] MEDS ORDERED: BISMUTH SUBSALICYLATE 4,192 MG/240 ML BOTTLE PO PRN (15:18)
[2017-07-21] MEDS ORDERED: METHYLPREDNISOLONE ACETATE 80 MG/ML IM PRN (15:18)
[2017-07-21] MEDS ORDERED: MAGNESIUM HYDROXIDE 2,400 MG/10 ML CUP PO PRN (15:18)
[2017-07-21] MEDS ORDERED: LIDOCAINE 5% PATCH TOPICAL PRN (15:18)
[2017-07-21] MEDS: IPRATROPIUM-ALBUTEROL 3 ML NEB INHALATION SCH ×2 (16:22→19:01)
[2017-07-21 17:45] LABS: Glucose,Whole Blood 102 mg/dL (75-99)
[2017-07-21] MEDS: ALPRAZolam 0.25 MG TAB PO SCH ×2 (17:57→21:57)
[2017-07-21] MEDS: methylPREDNISolone SOD SUCCI 125 MG/2 ML VIAL IV SCH (17:57)
[2017-07-21] MEDS: ESCITALOPRAM 10 MG TAB PO SCH (17:57)
[2017-07-21] MEDS: OSELTAMIVIR 75 MG CAP PO SCH (17:57)
[2017-07-21] MEDS: LEVOFLOXACIN 500 MG TAB PO SCH (17:57)
[2017-07-21] MEDS: NITROGLYCERIN OINT 1 INCH/GM PACKET TOPICAL SCH (17:58)
[2017-07-21] MEDS: ACETAMINOPHEN TAB 500 MG TAB PO PRN (18:08)
[2017-07-21] MEDS: BENZOCAINE/MENTHOL LOZENG 1 EACH LOZENGE MUCOUS MEM PRN ×2 (18:33→21:43)
[2017-07-21] MEDS ORDERED: IPRATROPIUM-ALBUTEROL 3 ML NEB INHALATION PRN (20:02)
[2017-07-21] MEDS: POLYETHYLENE GLYCOL 3350 17 GM POWD.PACK PO SCH (21:33)
[2017-07-21] MEDS: HYDROcodone/APAP 7.5-325MG 1 EACH TAB PO SCH (21:34)
[2017-07-21] MEDS: DULoxetine HCL 60 MG CAPSULE.DR PO SCH (21:35)
[2017-07-21] MEDS: GABAPENTIN 100 MG CAP PO SCH (21:35)
[2017-07-21] MEDS: FUROSEMIDE 10 MG/ML 4 ML VIAL IV SCH (21:35)
[2017-07-21] MEDS: NYSTATIN 100,000 UNIT/GM POWD 15 GM TOPICAL SCH (21:36)
[2017-07-21] MEDS: QUEtiapine 25 MG TAB PO SCH (21:36)
[2017-07-21] MEDS: TOPIRAMATE 25 MG TAB PO SCH (21:36)
[2017-07-21] MEDS: SENNOSIDES-DOCUSATE SODIUM 1 EACH TAB PO SCH (21:36)
[2017-07-21 21:41] LABS: Glucose,Whole Blood 123 mg/dL (75-99)
[2017-07-22] MEDS: NITROGLYCERIN OINT 1 INCH/GM PACKET TOPICAL SCH ×4 (00:10→17:51)
[2017-07-22] MEDS: methylPREDNISolone SOD SUCCI 125 MG/2 ML VIAL IV SCH ×4 (00:10→17:49)
[2017-07-22] MEDS: PANTOPRAZOLE 40 MG TABLET PO SCH (06:04)
[2017-07-22] MEDS: LEVOTHYROXINE 125 MCG TAB PO SCH (06:04)
[2017-07-22] MEDS: IPRATROPIUM-ALBUTEROL 3 ML NEB INHALATION SCH ×4 (07:14→19:06)
[2017-07-22 07:44] LABS: Glucose,Whole Blood 147 mg/dL (75-99)
[2017-07-22] MEDS: NYSTATIN 100,000 UNIT/GM POWD 15 GM TOPICAL SCH ×2 (08:23→20:26)
[2017-07-22] MEDS: ALPRAZolam 0.25 MG TAB PO SCH ×3 (08:23→20:39)
[2017-07-22] MEDS: DULoxetine HCL 60 MG CAPSULE.DR PO SCH ×2 (08:24→20:25)
[2017-07-22] MEDS: SENNOSIDES-DOCUSATE SODIUM 1 EACH TAB PO SCH ×2 (08:24→20:27)
[2017-07-22] MEDS: ASPIRIN 81 MG PO SCH (08:24)
[2017-07-22] MEDS: CHOLECALCIFEROL 1,000 UNIT TAB PO SCH (08:24)
[2017-07-22] MEDS: LORATADINE 10 MG TAB PO SCH (08:24)
[2017-07-22] MEDS: ESCITALOPRAM 10 MG TAB PO SCH (08:24)
[2017-07-22] MEDS: GABAPENTIN 100 MG CAP PO SCH ×2 (08:24→20:25)
[2017-07-22] MEDS: amLODIPine 5 MG TAB PO SCH (08:25)
[2017-07-22] MEDS: FUROSEMIDE 10 MG/ML 4 ML VIAL IV SCH ×2 (08:25→20:25)
[2017-07-22] MEDS: TOPIRAMATE 25 MG TAB PO SCH ×2 (08:25→20:24)
[2017-07-22] MEDS: METOPROLOL SUCCINATE (ER) 25 MG TAB.ER.24H PO SCH (08:26)
[2017-07-22] MEDS: NALDEMEDINE TOSYLATE 0.2 MG PO SCH (08:27)
[2017-07-22] MEDS: OSELTAMIVIR 75 MG CAP PO SCH (08:27)
[2017-07-22] MEDS: HYDROcodone/APAP 7.5-325MG 1 EACH TAB PO SCH ×2 (08:31→20:39)
[2017-07-22] MEDS: BENZOCAINE/MENTHOL LOZENG 1 EACH LOZENGE MUCOUS MEM PRN (08:32)
[2017-07-22] MEDS ORDERED: LEVOFLOXACIN 500 MG TAB PO SCH (09:00)
[2017-07-22] MEDS ORDERED: ESCITALOPRAM 10 MG TAB PO SCH (09:00)
[2017-07-22] MEDS ORDERED: FUROSEMIDE 40 MG TAB PO SCH (09:00)
[2017-07-22 12:28] LABS: Glucose,Whole Blood 142 mg/dL (75-99)
[2017-07-22] MEDS ORDERED: RX INFO: IV CONTRAST WAS GIVEN 1 EACH MISC MISCELLANE PRN (13:42)
--- NOTE | 2017-07-22 15:26 | P.CRDCN ---
History of Present Illness Consult date: 07/22/17 Consult reason: shortness of breath History of present illness: This is a pleasant 77-year-old female past medical history significant for diastolic heart failure, pulmonary hypertension, COPD, hypertension, dyslipidemia, sleep apnea and gastroesophageal reflux disease. She denies history of coronary artery disease. She has not followed with any cardiology's regularly she lives in an extended care facility. We have been asked to see her in consultation for complaints of shortness of breath and cough. She states Tuesday she started with a green phlegm productive cough. She was also having some Tums of shortness of breath and her oxygen saturation was dropping per her daughter. Her daughter states she had cyanosis around the mouth as well as fingertips. Oxygen was applied at the [facility] and her sats were continuing to remain low so they transported her to the hospital. She is currently being treated with IV antibiotics as well as IV steroids for suspected pneumonia. ProBNP is elevated. She denies symptoms of chest pain, palpitations, dizziness, nausea, vomiting or diaphoresis. She is bedridden at the senior living. EKG on arrival reveals sinus tachycardia with a heart rate of 115, PVCs and nonspecific ST abnormalities. Chest x-ray reveals pulmonary venous hypertension and early interstitial edema. Laboratory data reviewed, WBC 10.9, hemoglobin 12.4, platelets 221, potassium 3.8, magnesium 1.7, creatinine 0.8, cardiac enzymes negative 1, proBNP 3610. Current cardiac medications include Toprol 25 mg daily, amlodipine 5 mg daily, Lasix 40 mg daily and aspirin 81 mg daily. Most recent echocardiogram reveals preserved left ventricular systolic function with severe pulmonary hypertension RVSP 91 mmHg. Mild MR, severe TR, paradoxical/dysynergic septal motion consistent with right ventricular volume overload. Review of Systems At the time of my exam: CONSTITUTIONAL: Denies fever. Denies chills. EYES: Denies blurred vision. Denies vision changes. Denies eye pain. EARS, NOSE, MOUTH & THROAT: Denies headache. Denies sore throat. Denies ear pain. CARDIOVASCULAR: Denies chest pain. Complains of shortness of breath. Denies orthopnea. Denies PND. Denies palpitations. RESPIRATORY: Complains of cough. GASTROINTESTINAL: Denies abdominal pain. Denies diarrhea. Denies constipation. Denies nausea. Denies vomiting. MUSCULOSKELETAL: Denies myalgias. INTEGUMENTARY: Denies pruitis. Denies rash. NEUROLOGIC: Denies numbness. Denies tingling. Denies weakness. PSYCHIATRIC: Denies anxiety. Denies depression. ENDOCRINE: Denies fatigue. Denies weight change. Denies polydipsia. Denies polyurina. GENITOURINARY: Denies burning, hematuria or urgency with micturation. HEMATOLOGIC: Denies history of anemia. Denies bleeding. Past Medical History Past Medical History: Heart Failure, COPD, GERD/Reflux, Hyperlipidemia, Hypertension, Musculoskeletal Disorder, Neurologic Disorder, Osteoarthritis (OA) , Sleep Apnea/CPAP/BIPAP, Thyroid Disorder Additional Past Medical History / Comment(s): COPD, hypertension, obstructive sleep apnea on BiPAP at nighttime, chronic pain, gastric esophageal reflux disease, hypothyroidism, ALLERGIC rhinitis, osteoarthritis, idiopathic peripheral autonomic neuropathy, chronic urinary tract infections, vitamin D deficiency, morbid obesity, acid reflux, chronic contractures and deformities in the upper and lower extremities mainly wrists and ankles and feet, osteoarthritis, generalized anxiety disorder, previous history of urinary tract infection, depression, idiopathic peripheral autonomic neuropathy, previous history of urosepsis with prolonged ventilator dependent respiratory failure. History of Any Multi-Drug Resistant Organisms: Unobtainable Date of last positivie culture/infection: 01/12/17 MDRO Source:: Urine Past Surgical History: Appendectomy, Orthopedic Surgery Additional Past Surgical History / Comment(s): PEG tube and trach placement with removal, left hip arthroplasty in 1995, insertion and removal of a tracheostomy tube. Past Psychological History: Anxiety, Depression Smoking Status: Former smoker Past Alcohol Use History: None Reported Additional Past Alcohol Use History / Comment(s): Patient was a smoker 3 packs per day for 38 years and quit in 1983. She has had alcohol use in the past. 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 Past Drug Use History: None Reported - Past Family History Father Additional Family Medical History / Comment(s): at age 58 from a fall and head injury. Mother Additional Family Medical History / Comment(s): Mother at age 70 from a CVA. Brother(s) Additional Family Medical History / Comment(s): Patient has one brother with no major medical problems. Sister(s) Additional Family Medical History / Comment(s): Patient has one sister with no major medical problems. Daughter(s) Additional Family Medical History / Comment(s): Patient has 2 daughters no major medical problems. Medications and Allergies Home Medications Medication Instructions Recorded Confirmed Type Acetaminophen Tab [Tylenol] 500 mg PO Q6H PRN MDD 4000MG PER 01/12/17 07/21/17 History 24HR Aspirin 81 mg PO DAILY 01/12/17 07/21/17 History Cholecalciferol [Vitamin D3] 2,000 unit PO DAILY 01/12/17 07/21/17 History DULoxetine HCL [Cymbalta] 60 mg PO BID 01/12/17 07/21/17 History Dimethicone/Zinc Oxide [Inzo Zinc 1 applic TOPICAL DIRECTED PRN 01/12/1712/31 History Oxide Barrier Cream] Escitalopram [Lexapro] 5 - 10 mg PO DAILY 01/12/17 07/21/17 History Gabapentin [Neurontin] 200 mg PO BID 01/12/17 07/21/17 History Ipratropium-Albuterol Nebulize 3 ml INHALATION RT-QID 01/12/17 07/21/17 History [Duoneb 0.5 mg-3 mg/3 ml Soln] Levothyroxine Sodium [Synthroid] 125 mcg PO DAILY@0600 01/12/17 07/21/17 History Lidocaine 5% Patch [Lidoderm 5% 1 patch TOPICAL Q12H PRN MDD 2 01/12/17 History Patch] patches Loratadine [Claritin] 10 mg PO DAILY 01/12/17 07/21/17 History Magnesium Hydroxide [Milk of 2,400 mg PO DAILY PRN 01/12/17 07/21/17 History Magnesia] Metoprolol Succinate [Toprol XL] 25 mg PO DAILY 01/12/17 07/21/17 History Omeprazole [PriLOSEC] 20 mg PO DAILY@0600 01/12/17 07/21/17 History Ondansetron HCl [Zofran] 4 mg PO Q6H PRN 01/12/17 07/21/17 History Polyethylene Glycol 3350 [Miralax] 17 gm PO HS 01/12/17 07/21/17 History Sodium Chloride [Saline Mist] 2 spray NASAL DIRECTED PRN 01/12/17 07/21/17 History Topiramate [Topamax] 50 mg PO BID 01/12/17 07/21/17 History amLODIPine [Norvasc] 5 mg PO DAILY 01/12/17 07/21/17 History Hydrocodone/Acetaminophen [[place] 1 tab PO BID #60 tab 01/18/17 07/21/17 Rx 7.5-325] Hydrocodone/Acetaminophen [[place] 1 tab PO Q6HR PRN #60 tab 01/18/17 07/21/17 Rx 7.5-325] ALPRAZolam [Xanax] 0.25 mg PO TID 07/21/17 07/21/17 History Anti-Fungal Powder 1 applic TOPICAL BID 07/21/17 07/21/17 History Bismuth Subsalicylate 524 mg PO Q4H PRN 07/21/17 07/21/17 History [Pepto-Bismol] Budesonide [Pulmicort] 1 mg INHALATION RT-BID 07/21/17 07/21/17 History Depo-Medrol Susp 80mg/Ml 1 injection IM Q24H PRN 07/21/17 07/21/17 History Furosemide [Lasix] 40 mg PO DAILY 07/21/17 07/21/17 History Ipratropium-Albuterol Nebulize 3 ml INHALATION RT-Q4H PRN 07/21/17 07/21/17 History [Duoneb 0.5 mg-3 mg/3 ml Soln] Levofloxacin [Levaquin] 500 mg PO DAILY 07/21/17 07/21/17 History Lidocaine Hcl Soln 2% 1 injection IM Q24H PRN 07/21/17 07/21/17 History Naldemedine Tosylate [Symproic] 0.2 mg PO DAILY 07/21/17 07/21/17 History Oseltamivir [Tamiflu] 75 mg PO DAILY 07/21/17 07/21/17 History QUEtiapine [SEROquel] 25 mg PO HS 07/21/17 07/21/17 History Sennosides-Docusate Sodium 2 tab PO BID 07/21/17 07/21/17 History [Senokot-S] Vitamins A and D [Vitamin A and D] 1 applic TOPICAL DAILY PRN 07/21/17 07/21/17 History Vitamins A and D [Vitamin A and D] 1 applic TOPICAL Q12H 07/21/17 07/21/17 History Allergies Allergy/AdvReac Type Severity Reaction Status Date / Time metronidazole [From Flagyl] Allergy Unknown Verified 07/21/17 11:42 Physical Exam Vitals: Vital Signs Temp Pulse Pulse Resp BP BP Pulse Ox 07/22/17 15:00 75 18 96 07/22/17 11:03 88 07/22/17 10:53 86 07/22/17 08:00 99 18 07/22/17 07:24 90 07/22/17 07:14 90 07/22/17 07:00 96.5 F L 99 18 136/74 96 07/21/17 23:00 96.3 F L 88 16 120/69 91 L 07/21/17 19:14 95 07/21/17 19:01 95 95 07/21/17 17:00 98.5 F 100 18 97/67 93 L 07/21/17 15:47 104 H 18 158/73 97 Intake and Output 07/22/17 07/22/17 07/22/17 06:59 14:59 22:59 Other: Voiding Method Incontinent # Voids 0 Blood pressure 136/74 heart rate 99 afebrile maintaining oxygen saturation on high flow oxygen. GENERAL: This is a 77-year-old female in no apparent distress at the time of my examination. Obese. HEENT: Head is atraumatic, normocephalic. Pupils are equal, round. Sclerae anicteric. Conjunctivae are clear. Mucous membranes of the mouth are moist. Neck is supple. There is evidence of jugular venous distention. No carotid bruit is heard. LUNGS: Coarse rhonchi throughout, expiratory wheezes with coarse rales. No chest wall tenderness is noted on palpation or with deep breathing. HEART: Regular rate and rhythm with systolic ejection murmur at the base, no rubs or gallops. S1 and S2 heard. Distant heart sounds. Difficult to auscultate over coarse rhonchi. ABDOMEN: Soft, nontender. Bowel sounds are heard. No organomegaly noted. EXTREMITIES: No evidence of peripheral edema and no calf tenderness noted. Lower extremity muscle wasting appreciated. Left foot drop. She is bedridden. VASCULAR: Radial and dorsalis pedis pulses palpated, no evidence of clubbing. NEUROLOGIC: Patient is awake, alert and oriented x3. Results 07/21/17 12:30 07/21/17 12:30 Current Medications Generic Name Dose Route Start Last Admin Trade Name Freq PRN Reason Stop Dose Admin Acetaminophen 500 mg 07/21/17 15:18 07/21/17 18:08 Tylenol Tab PO 500 mg Q6H PRN Administration Pain or Fever > 100.5 Hydrocodone Bitart/Acetaminophen 1 each 07/21/17 15:18 07/21/17 18:08 [place] 7.5-325 PO 1 each Q6HR PRN Administration Pain Hydrocodone Bitart/Acetaminophen 1 each 07/21/17 21:00 07/22/17 08:31 [place] 7.5-325 PO 1 each BID MARLA Administration Albuterol/Ipratropium 3 ml 07/22/17 08:00 07/22/17 15:00 Duoneb 0.5 Mg-3 Mg/3 Ml Soln INHALATION 3 ml RT-QID MARLA Administration Albuterol/Ipratropium 3 ml 07/21/17 20:02 Duoneb 0.5 Mg-3 Mg/3 Ml Soln INHALATION RT-Q2H PRN Shortness Of Breath Or Wheezing Alprazolam 0.25 mg 07/21/17 16:00 07/22/17 08:23 Xanax PO 0.25 mg TID MARLA Administration Amlodipine Besylate 5 mg 07/22/17 09:00 07/22/17 08:25 Norvasc PO 5 mg DAILY MARLA Administration Aspirin 81 mg 07/22/17 09:00 07/22/17 08:24 Aspirin PO 81 mg DAILY MARLA Administration Benzocaine/Menthol 1 each 07/21/17 18:10 07/22/17 08:32 Cepacol Lozenge MUCOUS MEM 1 each Q4HR PRN Administration Sore Throat Bismuth Subsalicylate 524 mg 07/21/17 15:18 Bismatrol PO Q4H PRN Diarrhea/upset stomach Cholecalciferol 2,000 unit 07/22/17 09:00 07/22/17 08:24 Vitamin D3 PO 2,000 unit DAILY MARLA Administration Duloxetine HCl 60 mg 07/21/17 21:00 07/22/17 08:24 Cymbalta PO 60 mg BID MARLA Administration Escitalopram Oxalate 10 mg 07/21/17 17:00 07/22/17 08:24 Lexapro PO 07/28/17 17:01 10 mg DAILY MARLA Administration Escitalopram Oxalate 5 mg 07/29/17 09:00 Lexapro PO 08/12/17 09:01 DAILY MARLA Furosemide 40 mg 07/21/17 21:00 07/22/17 08:25 Lasix IV 40 mg Q12HR MARLA Administration Gabapentin 200 mg 07/21/17 21:00 07/22/17 08:24 Neurontin PO 200 mg BID MARLA Administration Levofloxacin 500 mg 07/21/17 17:00 07/21/17 17:57 Levaquin PO 07/30/17 17:01 500 mg Q24H MARLA Administration Levothyroxine Sodium 125 mcg 07/22/17 06:00 07/22/17 06:04 Synthroid PO 125 mcg DAILY@0600 [facility] Administration Lidocaine 1 patch 07/21/17 15:18 Lidoderm TOPICAL DAILY PRN joint pain Loratadine 10 mg 07/22/17 09:00 07/22/17 08:24 Claritin PO 10 mg DAILY [facility] Administration Magnesium Hydroxide 2,400 mg 07/21/17 15:18 Milk Of Magnesia PO DAILY PRN Constipation Methylprednisolone Sodium Succinate 60 mg 07/21/17 18:00 07/22/17 12:44 Solu-Medrol IV 60 mg Q6HR [facility] Administration Metoprolol Succinate 25 mg 07/22/17 09:00 07/22/17 08:26 Toprol Xl PO 25 mg DAILY [facility] Administration Miscellaneous Information 1 each 07/22/17 13:42 Rx Info: Iv Contrast Was Given MISCELLANE 07/24/17 13:43 DAILY PRN Per Protocol Nitroglycerin 0.5 inch 07/21/17 18:00 07/22/17 12:45 Nitro-Bid Oint TOPICAL 0.5 inch Q6HR [facility] Administration Non-Formulary Medication 0.2 mg 07/22/17 09:00 07/22/17 08:27 Naldemedine Tosylate [Symproic] PO Not Given DAILY [facility] Nystatin 1 applic 07/21/17 21:00 07/22/17 08:23 Mycostatin Powder TOPICAL 1 applic BID [facility] Administration Ondansetron HCl 4 mg 07/21/17 15:18 Zofran PO Q6H PRN Nausea Oseltamivir Phosphate 75 mg 07/21/17 16:00 07/22/17 08:27 Tamiflu PO 07/30/17 09:01 75 mg DAILY [facility] Administration Pantoprazole Sodium 40 mg 07/22/17 06:00 07/22/17 06:04 Protonix PO 40 mg DAILY@0600 [facility] Administration Polyethylene Glycol 17 gm 07/21/17 21:00 07/21/17 21:33 Miralax PO Not Given HS [facility]LA Quetiapine Fumarate 25 mg 07/21/17 21:00 07/21/17 21:36 Seroquel PO 25 mg HS [facility]LA Administration Senna/Docusate Sodium 2 each 07/21/17 21:00 07/22/17 08:24 Senokot-S PO 2 each BID MARLA Administration Sodium Chloride 2 spray 07/21/17 15:18 [place] NASAL DIRECTED PRN DRYNESS Topiramate 50 mg 07/21/17 21:00 07/22/17 08:25 Topamax PO 50 mg BID MARLA Administration Intake and Output 07/22/17 07/22/17 07/22/17 06:59 14:59 22:59 Other: Voiding Method Incontinent # Voids 0 07/21/17 12:30 07/21/17 12:30 Assessment and Plan Assessment: ASSESSMENT 1. Acute on chronic diastolic heart failure, proBNP 3610. 2. Pulmonary hypertension, RVSP last echocardiogram greater than 90 mmHg with positive JVD. 3. Productive cough, being treated with IV antibiotics and IV steroids 4. Hypertension 5. COPD 6. Leukocytosis 7. Obesity 8. Bed bound PLAN Agree with IV lasix. Follow kidney function and electrolytes daily. Strict intake and output with daily weights. Obtain 2D echocardiogram and doppler study to assess cardiac structure and function. Further recommendations to follow. Thank you kindly for this consultation. Nurse Practitioner note has been reviewed, I agree with a documented findings and plan of care. Patient was seen and examined.
--- NOTE | 2017-07-22 16:54 | CT ---
EXAMINATION TYPE: CT angio chest DATE OF EXAM: 07/22/2017 4:47 PM COMPARISON: NONE HISTORY: SOB, R/O PE chest pain CT DLP: 1369 mGycm Automated exposure control for dose reduction was used. CONTRAST: CTA scan of the thorax is performed with IV Contrast, patient injected with 100 mL of Omnipaque 350, pulmonary embolism protocol. There are 3-D post processed images.. FINDINGS: Thoracic aorta is atheromatous. There is no evidence of aneurysm or dissection. There is no pericardi al effusion. There is small left pleural effusion. There is a 1.5 cm right bronchial lymph node. Ther e is no mediastinal adenopathy. I see no filling defects in the pulmonary arteries. There are large c entral pulmonary arteries consistent with pulmonary hypertension. There are mild infiltrates and atel ectasis at the posterior lung bases. There is no sign of a pulmonary mass. Heart is slightly enlarged . There is hypertrophic spurring in the thoracic spine. IMPRESSION: NO EVIDENCE OF PULMONARY EMBOLISM. MILD CARDIOMEGALY. ATHEROSCLEROTIC VASCULAR DISEASE. BILE INFILTRA JOSHUA AND ATELECTASIS AT THE LUNG BASES. SMALL LEFT PLEURAL EFFUSION. THERE ARE CHANGES CONSISTENT WITH SOME DEGREE OF PULMONARY HYPERTENSION.
[2017-07-22 17:21] LABS: Glucose,Whole Blood 136 mg/dL (75-99)
[2017-07-22] MEDS ORDERED: MORPHINE SULFATE 4 MG/ML SYRINGE IVP PRN (17:34)
--- NOTE | 2017-07-22 17:39 | P.HPIM ---
History of Present Illness H&P Date: 07/22/17 This is a 77-year-old female patient of Dr. Elizabeth currently residing at [facility] with past medical history COPD on Oxygen , hypertension, obstructive sleep apnea on BiPAP at nighttime, chronic pain, gastric esophageal reflux disease, hypothyroidism, ALLERGIC rhinitis, osteoarthritis, idiopathic peripheral autonomic neuropathy, chronic urinary tract infections, vitamin D deficiency, morbid obesity, bed bound last admitted on 2016 for HCAP and CHF ). Acute hypoxia secondary to acute on chronic diastolic heart failure and COPD exacerbation. Patient was examined bedside and is requiring 10 L of oxygen. She was sent to [facility] on the [place] for physical therapy rehabilitation , patient has been coughing quite a bit of phlegm over the last few days and her oxygen dropped to low 80s on 4 L of oxygen. Patient also endorses sore throat associated with shortness of breath that started yesterday. Arteriogram today suggestive of some mild infiltrate and atelectasis in the posterior lung bases with slightly enlarged heart with changes consistent with some degree of pulmonary hypertension but no pulmonary embolism was seen. Previous Echocardiogram reveals EF of 55-60% with mild concentric left ventricular hypertrophy, severe pulmonary hypertension, mild mitral regurgitation, severe tricuspid regurgitation. Patient has been seen and followed by Dr. Arita from pulmonary medicine and Dr. Desir from cardiology. She is continued on IV Lasix, levofloxacin and IV steroids. Review of Systems Constitutional: Denies chills, Denies fever, Denies lethargy, Denies malaise, Denies poor appetite, Denies weakness, Denies weight loss Eyes: denies decreased vision, denies diplopia, denies discharge, denies pain Ears: deny: decreased hearing Ears, nose, mouth and throat: Denies dental pain, Denies headache, Denies nasal discharge, Denies nose pain Cardiovascular: Denies chest pain, Denies decreased exercise tolerance, Denies edema, Denies high blood pressure, Denies irregular heart beat, Denies palpitations, Denies paroxysmal nocturnal dyspnea, Denies rapid heart beat, endorses shortness of breath Respiratory: endorses congestion, endorses cough with sputum, endorses dyspnea, endorses home oxygen, endorses wheezing Gastrointestinal: Denies abdominal pain, Denies change in bowel habits, Denies coffee ground emesis, Denies early satiety, Denies excessive gas, Denies heartburn, Denies hematemesis, Denies hematochezia, Denies loss of appetite, Denies nausea, Denies vomiting Genitourinary: Denies dysuria, Denies flank pain, Denies kidney stones, Denies menorrhagia, Denies urgency, Denies urinary frequency Musculoskeletal: Patient is bedbound , endorses muscle cramps Integumentary : Rash in the lower extremities suggestive of previous injuries Neurological: Denies balance difficulties, Denies change in speech, Denies double vision, Denies gait dysfunction, Denies loss of vision, Denies motor disturbance, Denies numbness, Denies paralysis, Denies paresthesias, Denies seizures Psychiatric: Denies anxiety, Denies depression Endocrine: Denies excessive sweating, Denies excessive thirst, Denies high blood sugars, Denies palpitations Hematologic/Lymphatic: Denies easy bruising, Denies lymphadenopathy Past Medical History Past Medical History: Heart Failure, COPD, GERD/Reflux, Hyperlipidemia, Hypertension, Musculoskeletal Disorder, Neurologic Disorder, Osteoarthritis (OA) , Sleep Apnea/CPAP/BIPAP, Thyroid Disorder Additional Past Medical History / Comment(s): COPD, hypertension, obstructive sleep apnea on BiPAP at nighttime, chronic pain, gastric esophageal reflux disease, hypothyroidism, ALLERGIC rhinitis, osteoarthritis, idiopathic peripheral autonomic neuropathy, chronic urinary tract infections, vitamin D deficiency, morbid obesity, acid reflux, chronic contractures and deformities in the upper and lower extremities mainly wrists and ankles and feet, osteoarthritis, generalized anxiety disorder, previous history of urinary tract infection, depression, idiopathic peripheral autonomic neuropathy, previous history of urosepsis with prolonged ventilator dependent respiratory failure. History of Any Multi-Drug Resistant Organisms: Unobtainable Date of last positivie culture/infection: 01/12/17 MDRO Source:: Urine Past Surgical History: Appendectomy, Orthopedic Surgery Additional Past Surgical History / Comment(s): PEG tube and trach placement with removal, left hip arthroplasty in 1995, insertion and removal of a tracheostomy tube. Past Psychological History: Anxiety, Depression Smoking Status: Former smoker Past Alcohol Use History: None Reported Additional Past Alcohol Use History / Comment(s): Patient was a smoker 3 packs per day for 38 years and quit in 1983. She has had alcohol use in the past. 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 Past Drug Use History: None Reported - Past Family History Father Additional Family Medical History / Comment(s): at age 58 from a fall and head injury. Mother Additional Family Medical History / Comment(s): Mother at age 70 from a CVA. Brother(s) Additional Family Medical History / Comment(s): Patient has one brother with no major medical problems. Sister(s) Additional Family Medical History / Comment(s): Patient has one sister with no major medical problems. Daughter(s) Additional Family Medical History / Comment(s): Patient has 2 daughters no major medical problems. Medications and Allergies Home Medications Medication Instructions Recorded Confirmed Type Acetaminophen Tab [Tylenol] 500 mg PO Q6H PRN MDD 4000MG PER 01/12/17 07/21/17 History 24HR Aspirin 81 mg PO DAILY 01/12/17 07/21/17 History Cholecalciferol [Vitamin D3] 2,000 unit PO DAILY 01/12/17 07/21/17 History DULoxetine HCL [Cymbalta] 60 mg PO BID 01/12/17 07/21/17 History Dimethicone/Zinc Oxide [Inzo Zinc 1 applic TOPICAL DIRECTED PRN 01/12/1712/31 History Oxide Barrier Cream] Escitalopram [Lexapro] 5 - 10 mg PO DAILY 01/12/17 07/21/17 History Gabapentin [Neurontin] 200 mg PO BID 01/12/17 07/21/17 History Ipratropium-Albuterol Nebulize 3 ml INHALATION RT-QID 01/12/17 07/21/17 History [Duoneb 0.5 mg-3 mg/3 ml Soln] Levothyroxine Sodium [Synthroid] 125 mcg PO DAILY@0601/12/17 07/21/17 History Lidocaine 5% Patch [Lidoderm 5% 1 patch TOPICAL Q12H PRN MDD 2 01/12/17 History Patch] patches Loratadine [Claritin] 10 mg PO DAILY 01/12/17 07/21/17 History Magnesium Hydroxide [Milk of 2,400 mg PO DAILY PRN 01/12/17 07/21/17 History Magnesia] Metoprolol Succinate [Toprol XL] 25 mg PO DAILY 01/12/17 07/21/17 History Omeprazole [PriLOSEC] 20 mg PO DAILY@0600 01/12/17 07/21/17 History Ondansetron HCl [Zofran] 4 mg PO Q6H PRN 01/12/17 07/21/17 History Polyethylene Glycol 3350 [Miralax] 17 gm PO HS 01/12/17 07/21/17 History Sodium Chloride [Saline Mist] 2 spray NASAL DIRECTED PRN 01/12/17 07/21/17 History Topiramate [Topamax] 50 mg PO BID 01/12/17 07/21/17 History amLODIPine [Norvasc] 5 mg PO DAILY 01/12/17 07/21/17 History Hydrocodone/Acetaminophen [[place] 1 tab PO BID #60 tab 01/18/17 07/21/17 Rx 7.5-325] Hydrocodone/Acetaminophen [[place] 1 tab PO Q6HR PRN #60 tab 01/18/17 07/21/17 Rx 7.5-325] ALPRAZolam [Xanax] 0.25 mg PO TID 07/21/17 07/21/17 History Anti-Fungal Powder 1 applic TOPICAL BID 07/21/17 07/21/17 History Bismuth Subsalicylate 524 mg PO Q4H PRN 07/21/17 07/21/17 History [Pepto-Bismol] Budesonide [Pulmicort] 1 mg INHALATION RT-BID 07/21/17 07/21/17 History Depo-Medrol Susp 80mg/Ml 1 injection IM Q24H PRN 07/21/17 07/21/17 History Furosemide [Lasix] 40 mg PO DAILY 07/21/17 07/21/17 History Ipratropium-Albuterol Nebulize 3 ml INHALATION RT-Q4H PRN 07/21/17 07/21/17 History [Duoneb 0.5 mg-3 mg/3 ml Soln] Levofloxacin [Levaquin] 500 mg PO DAILY 07/21/17 07/21/17 History Lidocaine Hcl Soln 2% 1 injection IM Q24H PRN 07/21/17 07/21/17 History Naldemedine Tosylate [Symproic] 0.2 mg PO DAILY 07/21/17 07/21/17 History Oseltamivir [Tamiflu] 75 mg PO DAILY 07/21/17 07/21/17 History QUEtiapine [SEROquel] 25 mg PO HS 07/21/17 07/21/17 History Sennosides-Docusate Sodium 2 tab PO BID 07/21/17 07/21/17 History [Senokot-S] Vitamins A and D [Vitamin A and D] 1 applic TOPICAL DAILY PRN 07/21/17 07/21/17 History Vitamins A and D [Vitamin A and D] 1 applic TOPICAL Q12H 07/21/17 07/21/17 History Allergies Allergy/AdvReac Type Severity Reaction Status Date / Time metronidazole [From Flagyl] Allergy Unknown Verified 07/21/17 11:42 Physical Exam Vitals: Vital Signs Temp Pulse Pulse Resp BP Pulse Ox 07/22/17 16:00 78 18 07/22/17 15:10 78 18 07/22/17 15:00 97.3 F L 75 78 18 111/62 96 07/22/17 11:03 88 07/22/17 10:53 86 07/22/17 08:00 99 18 07/22/17 07:24 90 07/22/17 07:14 90 07/22/17 07:00 96.5 F L 99 18 136/74 96 07/21/17 23:00 96.3 F L 88 16 120/69 91 L 07/21/17 19:14 95 07/21/17 19:01 95 95 Intake and Output 07/22/17 07/22/17 07/22/17 06:59 14:59 22:59 Other: Voiding Method Incontinent Incontinent # Voids 0 - Constitutional General appearance: mild distress, obese, on oxygen - EENT Eyes: anicteric sclerae, EOMI, PERRLA, no ptosis, no scleral icterus, normal appearance ENT: hearing grossly normal, NA/AT, normal oropharynx, no thrush, no tonsillar exudates Ears: bilateral: normal - Neck Neck: no lymphadenopathy, normal ROM, no rigidity, no stridor, no thyromegaly Carotids: bilateral: upstroke delayed Thyroid: bilateral: normal size - Respiratory Respiratory: bilateral: diminished, negative: dullness, rales, rhonchi, wheezing , prolonged expiration, prolonged inspiration - Cardiovascular Rhythm: regular Heart sounds: normal: S1, S2 Abnormal Heart Sounds: positve for systolic murmur and diastlic murmur at the5 th IC space , no rub, S3 Gallop, no click - Gastrointestinal General gastrointestinal: normal bowel sounds, soft, no splenomegaly, no tenderness, umbilical hernia, no ventral hernia - Integumentary Integumentary: normal, normal turgor - Neurologic Neurologic: focal deficits (bilateral lower extremity paraparesis.) - Musculoskeletal Musculoskeletal: generalized weakness, 3/5 b/l lower extremity worse onthe left - Psychiatric Psychiatric: A&O x's 3, no appropriate affect, intact judgment & insight Results CBC & Chem 7: 07/21/17 12:30 07/21/17 12:30 Labs: Abnormal Lab Results - Last 24 Hours (Table) 07/21/17 07/21/17 07/22/17 Range/Units 17:42 21:04 07:32 POC Glucose (mg/dL) 102 H 123 H 147 H (75-99) mg/dL 07/22/17 07/22/17 Range/Units 12:25 17:13 POC Glucose (mg/dL) 142 H 136 H (75-99) mg/dL Microbiology - Last 24 Hours (Table) 07/21/17 12:30 Blood Culture - Preliminary Blood No Growth after 24 hours Thrombosis Risk Factor Assmnt - DVT/VTE Prophylaxis DVT/VTE Prophylaxis: Pharmacologic Prophylaxis ordered - Choose All That Apply Each Factor Represents 1 point: Abnormal pulmonary function (COPD), Heart failure (<1month), Medical pt on bed rest Each Risk Factor Represents 3 Points: Age 75 years or older Thrombosis Risk Factor Assessment Total Risk Factor Score: 6 Thrombosis Risk Factor Assessment Level: High Risk Assessment and Plan Plan: 1. Acute respiratory insufficiency secondary toacute on chronic diastolic heart failure and COPD exacerbation/ bronchitis . on Lasix 40 mg IV push every 24 hours, levofloxacin IV daily , sputum culture, blood culture, pulmonary consultation, cardiology consultation,Echocardiogram 2016 reveals EF of 55- 60% with mild concentric left ventricular hypertrophy, severe pulmonary hypertension, mild mitral regurgitation, severe tricuspid regurgitation. continue DuoNeb 3 mL nebulization 4 times every day. Continue Solu-Medrol 60 IV every 6 hours Monitor the patient weight on a daily basis. 2. Acute on chronic diastolic heart failure. Continue Toprol-XL 25 mg orally once every day, continue patient on Lasix 40 mg IV push every 24 hours, continue to monitor input and output and daily weight, echocardiogram to be done to evaluate LV function. 3. Morbid obesity with [place] - continue Bipap in the night 4 Medical debility, bedbound . Physical therapy evaluation, discharge to [facility] 5. GERD. Continue Protonix 40 mg orally once every day. 6. Hypertension and hypertensive cardiovascular disease. Continue Toprol-XL 25 mg orally once every day, amlodipine 5 mg orally once every day. 7. Hyperlipidemia. Low-cholesterol diet. 8. Hypothyroidism. Continue Synthroid 125 g orally once every day. 9. Peripheral neuropathy. Continue gabapentin 200 mg orally twice every day. 10. Depressive disorder. Continue patient on Cymbalta 60 mg orally once every day and Lexapro 10 mg orally once every day. 11. Osteoarthritis with joint deformities including the right hand as well as bilateral lower extremity's. 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 12. Anxiety disorder. Continue patient on Lexapro 10 mg orally once every day. 13. ALLERGIC rhinitis. Continue patient on Claritin 10 mg orally once every day. 14. DVT prophylaxis. Continue Lovenox 40 mg subcutaneously every 24 hours. 15. GI prophylaxis. Continue Protonix 40 mg orally once every day. 16. Patient is full code. Estimate a length of stay 2 midnights. 17. Admit to inpatient. 4 Medical debility. Physical therapy evaluation, social worker clinical consultation for discharge planning.
[2017-07-22] MEDS: LEVOFLOXACIN 500 MG TAB PO SCH (17:49)
--- NOTE | 2017-07-22 18:03 | P.CNPUL ---
History of Present Illness Consult date: 07/22/17 Reason for consult: dyspnea, hypoxemia History of present illness: 77-year-old female patient is well-known to me from previous hospitalizations, the patient is quite debilitated and she is a assisted resident and she resides at [facility]. The patient is coming in for increased shortness of breath. The patient was noted to be hypoxic. She had symptoms of increased cough and congestion and subsequently she was found to be blue and cyanotic. Pulse ox was as low as 80% 40s about 2 by nasal cannula. Based on that, the patient was sent to the hospital and the chest x-ray was done and showed some limited infiltration lung bases bilaterally. She is afebrile. No altered mentation. No significant leukocytosis. Her white cell count is at 10.9. The patient is currently on 10 L of oxygen by nasal cannula. She is chronically bedridden. She has some degree of swelling in lower extremities. No previous history of DVT or pulmonary embolism. This is obviously concerning knowing that the patient is sedentary. I've taking care of her in the past for complications of altered mentation pneumonia and UTI and sepsis. No seizure activity. No other complaints otherwise for now. Note that the patient was receiving a combination of Levaquin and Tamiflu on outpatient basis prior to her coming to the hospital and this was given to her at the assisted. Note that this patient is morbidly obese female patient who was the left debilitated following a bout of urosepsis that was complicated by prolonged ventilator-dependent history failure around 13 years ago. Since then the patient has been bedridden, significantly debilitated, has crippling deformities both in upper and lower extremities and she has not ambulated. She was living in a assisted in the [place] area. More recently the patient underwent her hospitalization at [facility]. She was given a diagnosis of a pneumonia involving the right lower lobe. Hospital- acquired pneumonia was suspected and the patient was treated with antibiotics and due to proximity to her daughter's house the patient got moved to [facility] and she has been in [facility] since then. I've treated for pneumonia back in December 2016 and during that time the patient came into the intensive care unit. She was also treated for urine checked infection and she is known to have VRE urinary tract infection and subsequent Proteus mirabilis urine checked infection. Review of Systems Constitutional: Reports chronic pain, Reports fatigue, Reports weakness, Reports weight gain Eyes: denies blurred vision, denies bulging eye, denies decreased vision Ears: deny: decreased hearing, ear discharge, earache Ears, nose, mouth and throat: Reports as per HPI Cardiovascular: Reports dyspnea on exertion, Reports orthopnea, Reports shortness of breath Respiratory: Reports cough, Reports dyspnea Gastrointestinal: Denies abdominal pain, Denies diarrhea, Denies nausea, Denies vomiting Genitourinary: Reports urge incontinence, Reports urinary frequency Musculoskeletal: Reports limitation of motion, Reports muscle weakness Musculoskeletal: bilateral: ankle pain, ankle stiffness, ankle swelling Integumentary: Denies pruritus, Denies rash Neurological: Reports numbness, Reports paralysis, Reports weakness and the patient has been sedentary and she has chronic contractures and deformities both in the upper and lower extremities and she is nonambulatory. She has also idiopathic peripheral neuropathy. 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 History of Any Multi-Drug Resistant Organisms: Unobtainable Date of last positivie culture/infection: 01/12/17 MDRO Source:: Urine Past Surgical History: Appendectomy, Orthopedic Surgery Additional Past Surgical History / Comment(s): PEG tube and trach placement with removal, left hip arthroplasty in 1995, insertion and removal of a tracheostomy tube. Past Psychological History: Anxiety, Depression Smoking Status: Former smoker Past Alcohol Use History: None Reported Additional Past Alcohol Use History / Comment(s): Patient was a smoker 3 packs per day for 38 years and quit in 1983. She has had alcohol use in the past. 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 Past Drug Use History: None Reported - Past Family History Father Additional Family Medical History / Comment(s): at age 58 from a fall and head injury. Mother Additional Family Medical History / Comment(s): Mother at age 70 from a CVA. Brother(s) Additional Family Medical History / Comment(s): Patient has one brother with no major medical problems. Sister(s) Additional Family Medical History / Comment(s): Patient has one sister with no major medical problems. Daughter(s) Additional Family Medical History / Comment(s): Patient has 2 daughters no major medical problems. Medications and Allergies Home Medications Medication Instructions Recorded Confirmed Type Acetaminophen Tab [Tylenol] 500 mg PO Q6H PRN MDD 4000MG PER 01/12/17 07/21/17 History 24HR Aspirin 81 mg PO DAILY 01/12/17 07/21/17 History Cholecalciferol [Vitamin D3] 2,000 unit PO DAILY 01/12/17 07/21/17 History DULoxetine HCL [Cymbalta] 60 mg PO BID 01/12/17 07/21/17 History Dimethicone/Zinc Oxide [Inzo Zinc 1 applic TOPICAL DIRECTED PRN 01/12/1712/31 History Oxide Barrier Cream] Escitalopram [Lexapro] 5 - 10 mg PO DAILY 01/12/17 07/21/17 History Gabapentin [Neurontin] 200 mg PO BID 01/12/17 07/21/17 History Ipratropium-Albuterol Nebulize 3 ml INHALATION RT-QID 01/12/17 07/21/17 History [Duoneb 0.5 mg-3 mg/3 ml Soln] Levothyroxine Sodium [Synthroid] 125 mcg PO DAILY@0600 01/12/17 07/21/17 History Lidocaine 5% Patch [Lidoderm 5% 1 patch TOPICAL Q12H PRN MDD 2 01/12/17 History Patch] patches Loratadine [Claritin] 10 mg PO DAILY 01/12/17 07/21/17 History Magnesium Hydroxide [Milk of 2,400 mg PO DAILY PRN 01/12/17 07/21/17 History Magnesia] Metoprolol Succinate [Toprol XL] 25 mg PO DAILY 01/12/17 07/21/17 History Omeprazole [PriLOSEC] 20 mg PO DAILY@0600 01/12/17 07/21/17 History Ondansetron HCl [Zofran] 4 mg PO Q6H PRN 01/12/17 07/21/17 History Polyethylene Glycol 3350 [Miralax] 17 gm PO HS 01/12/17 07/21/17 History Sodium Chloride [Saline Mist] 2 spray NASAL DIRECTED PRN 01/12/17 07/21/17 History Topiramate [Topamax] 50 mg PO BID 01/12/17 07/21/17 History amLODIPine [Norvasc] 5 mg PO DAILY 01/12/17 07/21/17 History Hydrocodone/Acetaminophen [[place] 1 tab PO BID #60 tab 01/18/17 07/21/17 Rx 7.5-325] Hydrocodone/Acetaminophen [[place] 1 tab PO Q6HR PRN #60 tab 01/18/17 07/21/17 Rx 7.5-325] ALPRAZolam [Xanax] 0.25 mg PO TID 07/21/17 07/21/17 History Anti-Fungal Powder 1 applic TOPICAL BID 07/21/17 07/21/17 History Bismuth Subsalicylate 524 mg PO Q4H PRN 07/21/17 07/21/17 History [Pepto-Bismol] Budesonide [Pulmicort] 1 mg INHALATION RT-BID 07/21/17 07/21/17 History Depo-Medrol Susp 80mg/Ml 1 injection IM Q24H PRN 07/21/17 07/21/17 History Furosemide [Lasix] 40 mg PO DAILY 07/21/17 07/21/17 History Ipratropium-Albuterol Nebulize 3 ml INHALATION RT-Q4H PRN 07/21/17 07/21/17 History [Duoneb 0.5 mg-3 mg/3 ml Soln] Levofloxacin [Levaquin] 500 mg PO DAILY 07/21/17 07/21/17 History Lidocaine Hcl Soln 2% 1 injection IM Q24H PRN 07/21/17 07/21/17 History Naldemedine Tosylate [Symproic] 0.2 mg PO DAILY 07/21/17 07/21/17 History Oseltamivir [Tamiflu] 75 mg PO DAILY 07/21/17 07/21/17 History QUEtiapine [SEROquel] 25 mg PO HS 07/21/17 07/21/17 History Sennosides-Docusate Sodium 2 tab PO BID 07/21/17 07/21/17 History [Senokot-S] Vitamins A and D [Vitamin A and D] 1 applic TOPICAL DAILY PRN 07/21/17 07/21/17 History Vitamins A and D [Vitamin A and D] 1 applic TOPICAL Q12H 07/21/17 07/21/17 History Allergies Allergy/AdvReac Type Severity Reaction Status Date / Time metronidazole [From Flagyl] Allergy Unknown Verified 07/21/17 11:42 Physical Exam Vitals: Vital Signs Temp Pulse Pulse Resp BP Pulse Ox 07/22/17 16:00 78 18 07/22/17 15:10 78 18 07/22/17 15:00 97.3 F L 75 78 18 111/62 96 07/22/17 11:03 88 07/22/17 10:53 86 07/22/17 08:00 99 18 07/22/17 07:24 90 07/22/17 07:14 90 07/22/17 07:00 96.5 F L 99 18 136/74 96 07/21/17 23:00 96.3 F L 88 16 120/69 91 L 07/21/17 19:14 95 07/21/17 19:01 95 95 Intake and Output 07/22/17 07/22/17 07/22/17 06:59 14:59 22:59 Other: Voiding Method Incontinent Incontinent # Voids 0 Morbidly obese, calm and comfortable, nonacute distress. The patient is communicating and she has been alert and active and appropriate at this point in time. She is resting comfortably in bed. Head exam was generally normal. There was no scleral icterus or corneal arcus. Mucous membranes were moist. Neck is supple and short and the patient has significant crowding of the posterior oropharynx and the scar of previous tracheostomy tube insertion is seen over the anterior neck. Lung sounds are diminished in lung bases. There are some bibasilar crackles. No wheezes or rhonchi.Cardiac exam revealed the PMI to be normally situated and sized. The rhythm was regular and no extrasystoles were noted during several minutes of auscultation. The first and second heart sounds were normal and physiologic splitting of the second heart sound was noted. There were no murmurs, rubs, clicks, or gallops. Abdomen is morbidly obese soft nontender. No direct tenderness rebound tensile guarding. Organs cannot be accurately palpated. No ascites. Extremities show chronic edema and chronic deformities in the ankles, feet, and the wrist and the fingers bilaterally. The patient has no open wounds or sores. Sensation is diminished. Motor function in the lower extremity 0-5, 3 out of 5 in the upper extremity. Neurologically, the patient is awake and alert and following commands and answering questions appropriately. Results - Laboratory Findings CBC and BMP: 07/21/17 12:30 07/21/17 12:30 PT/INR, D-dimer PT 10.2 sec (9.0-12.0) 07/21/17 12:30 INR 1.0 (<1.2) 07/21/17 12:30 Abnormal lab findings: Abnormal Labs 07/21/17 07/21/17 07/21/17 12:30 12:30 12:30 WBC 10.9 H Neutrophils # 9.7 H Lymphocytes # 0.6 L Chloride 93 L Carbon Dioxide 31 H BUN 26 H Glucose 118 H POC Glucose (mg/dL) Total Creatine Kinase <20 L 07/21/17 07/21/17 07/22/17 17:42 21:04 07:32 WBC Neutrophils # Lymphocytes # Chloride Carbon Dioxide BUN Glucose POC Glucose (mg/dL) 102 H 123 H 147 H Total Creatine Kinase 07/22/17 07/22/17 12:25 17:13 WBC Neutrophils # Lymphocytes # Chloride Carbon Dioxide BUN Glucose POC Glucose (mg/dL) 142 H 136 H Total Creatine Kinase - Diagnostic Findings Chest x-ray: image reviewed Assessment and Plan Plan: Assessment 1 acute hypoxic respiratory failure, most likely on the basis of bilateral lower lobe pneumonia. Pulmonary embolism cannot be completely excluded especially with her previous history of chronic medical debility, immobility and sedentary lifestyle. As such, a computed tomography scan of the chest will be needed to clarify these abnormalities. 2 acute shortness of breath secondary to above 3 morbid obesity 4 bedridden, and the patient has not ambulated for the past 13 years at least. Chronic contracture deformity in lower extremities and upper extremities bilaterally. 5 history of urine checked infection 6 hypertension 7 hyperlipidemia 8 hypothyroidism 9 idiopathic peripheral neuropathy 10 depression 11 anxiety disorder 12 acid reflux 13 subsequently the patient also had infections with VRE and Proteus mirabilis h15 severe pulmonary hypertension(istory 1515 of15 urosevere pulmonary hypertension and evidence of right-sided heart failuresepsis and prolonged respiratory failure due to complications of sepsis requiring insertion and subsequent removal of tracheostomy tube. 14 chronic normocytic anemia 15 severe pulmonary hypertension and evidence of right-sided heart failure Plan Cover this patient with empiric antibiotics. further management will largely depend on the CAT scan findings. I'm going to order a CAT scan to rule out pneumonia/pulmonary embolism. There may be also a component of fluid overload specially the patient has significant degree of pulmonary hypertension and right -sided heart failure. We'll proceed with a CAT scan of the chest to rule out any pulmonary embolism. She has bronchus spastic and wheezy and will agree on the treatment with IV Solu Medrol. Continue DuoNeb nebulized treatments around the clock. We'll monitor oxygenation and attempt to wean it off to maintain a saturation above 90%. We'll continue to follow.
--- NOTE | 2017-07-22 18:06 | ECHOF ---
Referral Reason:sob MEASUREMENTS -------- HEIGHT: 172.7 cm WEIGHT: 94.8 kg BP: 136/74 RVIDd: 3.8 cm (< 3.3) IVSd: 1.1 cm (0.6 - 1.1) LVIDd: 4.2 cm (3.9 - 5.3) LVPWd: 1.0 cm (0.6 - 1.1) IVSs: 1.5 cm LVIDs: 2.8 cm LVPWs: 1.8 cm LA Diam: 2.6 cm (2.7 - 3.8) LAESV Index (A-L): 12.44 ml/m Ao Diam: 2.9 cm (2.0 - 3.7) AV Cusp: 2.0 cm (1.5 - 2.6) MV EXCURSION: 19.740 mm (> 18.000) MV EF SLOPE: 174 mm/s (70 - 150) EPSS: 0.3 cm RAP: 5.00 mmHg RVSP: 90.05 mmHg FINDINGS -------- This was a technically adequate study. The left ventricular size is normal. There is borderline concentric left ventricular hypertrophy. Overall left ventricular systolic function is normal with, an EF between 55 - 60 %. The right ventricle is mild to moderately enlarged. Normal LA size by volume 22+/-6 ml/m2. The right atrium is normal in size. There is mild aortic valve sclerosis. Mild mitral annular calcification present. Mild mitral regurgitation is present. Moderate to severe tricuspid regurgitation present. There is severe pulmonary hypertension. The r ight ventricular systolic pressure, as measured by Doppler, is 90.05mmHg. The pulmonic valve was not well visualized. The aortic root size is normal. IVC Not well visulized. There is no pericardial effusion. CONCLUSIONS -------- 1. This was a technically adequate study. 2. The left ventricular size is normal. 3. There is borderline concentric left ventricular hypertrophy. 4. Overall left ventricular systolic function is normal with, an EF between 55 - 60 %. 5. The right ventricle is mild to moderately enlarged. 6. Normal LA size by volume 22+/-6 ml/m2. 7. The right atrium is normal in size. 8. There is mild aortic valve sclerosis. 9. Mild mitral annular calcification present. 10. Mild mitral regurgitation is present. 11. Moderate to severe tricuspid regurgitation present. 12. There is severe pulmonary hypertension. 13. The right ventricular systolic pressure, as measured by Doppler, is 90.05mmHg. 14. The pulmonic valve was not well visualized. 15. The aortic root size is normal. 16. IVC Not well visulized. 17. There is no pericardial effusion. AUTO TECHNICIAN: Arleen Lomax RDCS
[2017-07-22] MEDS: QUEtiapine 25 MG TAB PO SCH (20:25)
[2017-07-22] MEDS: POLYETHYLENE GLYCOL 3350 17 GM POWD.PACK PO SCH (20:27)
[2017-07-22] MEDS: ACETAMINOPHEN TAB 500 MG TAB PO PRN (20:37)
[2017-07-22 20:52] LABS: Glucose,Whole Blood 127 mg/dL (75-99)
[2017-07-22] MEDS: guaiFENesin 600 MG TABLET.ER PO SCH (20:57)
[2017-07-23] MEDS: methylPREDNISolone SOD SUCCI 125 MG/2 ML VIAL IV SCH ×5 (00:24→23:46)
[2017-07-23] MEDS: NITROGLYCERIN OINT 1 INCH/GM PACKET TOPICAL SCH ×5 (00:25→23:46)
[2017-07-23] MEDS: BENZOCAINE/MENTHOL LOZENG 1 EACH LOZENGE MUCOUS MEM PRN ×3 (00:49→22:23)
[2017-07-23] MEDS: PANTOPRAZOLE 40 MG TABLET PO SCH (06:11)
[2017-07-23] MEDS: LEVOTHYROXINE 125 MCG TAB PO SCH (06:11)
[2017-07-23 07:30] LABS: Glucose,Whole Blood 136 mg/dL (75-99)
[2017-07-23 08:03] LABS: Basophils % (A) 0 %; Eosinophils % (A) 0 %; HCT 36.8 % (34.0-46.0); HGB 11.8 gm/dL (11.4-16.0); Hypochromasia Slight; Lymphocytes # (A) 0.4 k/uL (1.0-4.8); Lymphocytes % (A) 6 %; MCH 27.7 pg (25.0-35.0); MCHC 31.9 g/dL (31.0-37.0); MCV 86.9 fL (80.0-100.0); Mean Platelet Volume 7.5; Monocytes # (A) 0.2 k/uL (0-1.0); Monocytes % (A) 4 %; Neutrophils # (A) 5.6 k/uL (1.3-7.7); Neutrophils % (A) 89 %; Platelet Count 225 k/uL (150-450); RBC 4.24 m/uL (3.80-5.40); RDW 14.5 % (11.5-15.5); WBC 6.3 k/uL (3.8-10.6)
[2017-07-23] MEDS: HYDROcodone/APAP 7.5-325MG 1 EACH TAB PO SCH ×2 (08:15→21:07)
[2017-07-23] MEDS: ALPRAZolam 0.25 MG TAB PO SCH ×3 (08:15→21:08)
[2017-07-23] MEDS: SENNOSIDES-DOCUSATE SODIUM 1 EACH TAB PO SCH ×3 (08:16→21:13)
[2017-07-23] MEDS: ENOXAPARIN 40 MG/0.4 ML SYRINGE SQ SCH (08:16)
[2017-07-23] MEDS: DULoxetine HCL 60 MG CAPSULE.DR PO SCH ×2 (08:17→21:11)
[2017-07-23] MEDS: POTASSIUM CHLORIDE ER 20 MEQ TAB.ER PO SCH (08:17)
[2017-07-23] MEDS: OSELTAMIVIR 75 MG CAP PO SCH (08:17)
[2017-07-23] MEDS: TOPIRAMATE 25 MG TAB PO SCH ×2 (08:17→21:09)
[2017-07-23] MEDS: CHOLECALCIFEROL 1,000 UNIT TAB PO SCH (08:17)
[2017-07-23] MEDS: guaiFENesin 600 MG TABLET.ER PO SCH ×2 (08:17→21:11)
[2017-07-23] MEDS: ESCITALOPRAM 10 MG TAB PO SCH (08:17)
[2017-07-23] MEDS: NALDEMEDINE TOSYLATE 0.2 MG PO SCH (08:18)
[2017-07-23] MEDS: METOPROLOL SUCCINATE (ER) 25 MG TAB.ER.24H PO SCH (08:18)
[2017-07-23] MEDS: GABAPENTIN 100 MG CAP PO SCH ×2 (08:18→21:09)
[2017-07-23] MEDS: LORATADINE 10 MG TAB PO SCH (08:18)
[2017-07-23] MEDS: amLODIPine 5 MG TAB PO SCH (08:18)
[2017-07-23] MEDS: ASPIRIN 81 MG PO SCH (08:18)
[2017-07-23] MEDS: FUROSEMIDE 10 MG/ML 4 ML VIAL IV SCH ×2 (08:18→21:11)
[2017-07-23] MEDS: NYSTATIN 100,000 UNIT/GM POWD 15 GM TOPICAL SCH ×2 (08:19→21:11)
[2017-07-23 08:33] LABS: Albumin 3.5 g/dL (3.5-5.0); Calcium 9.2 mg/dL (8.4-10.2); Magnesium 1.8 mg/dL (1.6-2.3); Potassium 3.6 mmol/L (3.5-5.1); Total Bilirubin 0.4 mg/dL (0.2-1.3); Total Protein 6.5 g/dL (6.3-8.2)
[2017-07-23] MEDS: IPRATROPIUM-ALBUTEROL 3 ML NEB INHALATION SCH ×4 (08:36→20:57)
[2017-07-23] MEDS ORDERED: DRY MOUTH SPRAY 44.3 SPRAY/44.3 ML SPRAY MUCOUS MEM PRN (10:25)
[2017-07-23] MEDS: LIDOCAINE VISCOUS 2% 15 ML CUP MUCOUS MEM PRN ×3 (11:27→23:53)
[2017-07-23 12:34] LABS: Glucose,Whole Blood 154 mg/dL (75-99)
--- NOTE | 2017-07-23 15:49 | P.PN ---
Subjective Progress Note Date: 07/23/17 Principal diagnosis: Acute hypoxic respiratory failure secondary to bilateral lower lobe pneumonias. 77-year-old female patient is well-known to me from previous hospitalizations, the patient is quite debilitated and she is a shelter resident and she resides at [facility]. The patient is coming in for increased shortness of breath. The patient was noted to be hypoxic. She had symptoms of increased cough and congestion and subsequently she was found to be blue and cyanotic. Pulse ox was as low as 80% 40s about 2 by nasal cannula. Based on that, the patient was sent to the hospital and the chest x-ray was done and showed some limited infiltration lung bases bilaterally. She is afebrile. No altered mentation. No significant leukocytosis. Her white cell count is at 10.9. The patient is currently on 10 L of oxygen by nasal cannula. She is chronically bedridden. She has some degree of swelling in lower extremities. No previous history of DVT or pulmonary embolism. This is obviously concerning knowing that the patient is sedentary. I've taking care of her in the past for complications of altered mentation pneumonia and UTI and sepsis. No seizure activity. No other complaints otherwise for now. Note that the patient was receiving a combination of Levaquin and Tamiflu on outpatient basis prior to her coming to the hospital and this was given to her at the shelter. Note that this patient is morbidly obese female patient who was the left debilitated following a bout of urosepsis that was complicated by prolonged ventilator-dependent history failure around 13 years ago. Since then the patient has been bedridden, significantly debilitated, has crippling deformities both in upper and lower extremities and she has not ambulated. She was living in a shelter in the [place] area. More recently the patient underwent her hospitalization at [facility]. She was given a diagnosis of a pneumonia involving the right lower lobe. Hospital- acquired pneumonia was suspected and the patient was treated with antibiotics and due to proximity to her daughter's house the patient got moved to [facility] and she has been in [facility] since then. I've treated for pneumonia back in December 2016 and during that time the patient came into the intensive care unit. She was also treated for urine checked infection and she is known to have VRE urinary tract infection and subsequent Proteus mirabilis urine checked infection. The patient is seen again today 07/23/2017 in follow-up in the regular medical floor. She is currently resting quite comfortably in bed. She is awake and alert in no acute distress. She is doing better today as compared to yesterday. She is currently continuing good O2 saturations in the upper 90s on 8 L high flow nasal cannula. Current temperature 99.7. White count 6.3. Blood cultures revealed no growth to date. She remains on Levaquin and Tamiflu. She remains on bronchodilators and Solu-Medrol. Objective - Vital Signs Vital signs: Vital Signs Temp 99.7 F H 07/23/17 14:57 Pulse 86 07/23/17 14:57 Resp 18 07/23/17 14:57 BP 122/60 07/23/17 14:57 Pulse Ox 97 07/23/17 14:57 Intake & Output 07/22/17 07/23/17 07/23/17 18:59 06:59 18:59 Intake Total 600 480 Balance 600 480 Weight 89.5 kg 93.5 kg Intake: Oral 600 480 Other: Voiding Method Incontinent Incontinent Incontinent # Voids 1 2 3 # Bowel Movements 0 - Exam Morbidly obese, calm and comfortable, nonacute distress. The patient is communicating and she has been alert and active and appropriate at this point in time. She is resting comfortably in bed. Head exam was generally normal. There was no scleral icterus or corneal arcus. Mucous membranes were moist. Neck is supple and short and the patient has significant crowding of the posterior oropharynx and the scar of previous tracheostomy tube insertion is seen over the anterior neck. Lung sounds are diminished in lung bases. There are some bibasilar crackles. No wheezes or rhonchi.Cardiac exam revealed the PMI to be normally situated and sized. The rhythm was regular and no extrasystoles were noted during several minutes of auscultation. The first and second heart sounds were normal and physiologic splitting of the second heart sound was noted. There were no murmurs, rubs, clicks, or gallops. Abdomen is morbidly obese soft nontender. No direct tenderness rebound tensile guarding. Organs cannot be accurately palpated. No ascites. Extremities show chronic edema and chronic deformities in the ankles, feet, and the wrist and the fingers bilaterally. The patient has no open wounds or sores. Sensation is diminished. Motor function in the lower extremity 0-5, 3 out of 5 in the upper extremity. Neurologically, the patient is awake and alert and following commands and answering questions appropriately. - Labs CBC & Chem 7: 07/23/17 07:34 07/23/17 07:34 Labs: Abnormal Lab Results - Last 24 Hours (Table) 07/22/17 07/22/17 07/23/17 Range/Units 17:13 20:20 07:27 Lymphocytes # (1.0-4.8) k/uL Chloride (98-107) mmol/L Carbon Dioxide (22-30) mmol/L BUN (7-17) mg/dL Glucose (74-99) mg/dL POC Glucose (mg/dL) 136 H 127 H 136 H (75-99) mg/dL 07/23/17 07/23/17 07/23/17 Range/Units 07:34 07:34 12:23 Lymphocytes # 0.4 L (1.0-4.8) k/uL Chloride 96 L (98-107) mmol/L Carbon Dioxide 32 H (22-30) mmol/L BUN 35 H (7-17) mg/dL Glucose 128 H (74-99) mg/dL POC Glucose (mg/dL) 154 H (75-99) mg/dL Microbiology - Last 24 Hours (Table) 07/21/17 12:30 Blood Culture - Preliminary Blood No Growth after 48 hours Assessment and Plan Assessment: Assessment 1 acute hypoxic respiratory failure secondary to bilateral lower lobe pneumonia. Computed tomography scan of the chest ruled out pulmonary embolism. There is noted by bilateral infiltrates and small left pleural effusion. 2 acute shortness of breath secondary to above 3 morbid obesity 4 bedridden, and the patient has not ambulated for the past 13 years at least. Chronic contracture deformity in lower extremities and upper extremities bilaterally. 5 history of urine checked infection 6 hypertension 7 hyperlipidemia 8 hypothyroidism 9 idiopathic peripheral neuropathy 10 depression 11 anxiety disorder 12 acid reflux 13 subsequently the patient also had infections with VRE and Proteus mirabilis and prolonged respiratory failure due to complications of sepsis requiring insertion and subsequent removal of tracheostomy tube. 14 chronic normocytic anemia 15 severe pulmonary hypertension and evidence of right-sided heart failure Plan: The patient was seen and evaluated by Dr. Arita. She is doing better today as compared to yesterday. We've decreased her oxygen down to 8 L high flow per nasal cannula. She is maintaining good O2 saturations in the 90s. Continue with her current treatment plan. We will increase her activity as tolerated. We'll continue to follow and make further recommendations based on her clinical status. I, the cosigning physician, performed a history & physical examination of the patient. Lungs sounds crackles in the bilateral posterior bases. Maintaining good O2 saturations in the 90s on 8 L high flow nasal cannula. I discussed the assessment and plan of care with my nurse practitioner, Bhavani Fernandez. I attest to the above note as dictated by her.
[2017-07-23] MEDS: ACETAMINOPHEN TAB 500 MG TAB PO PRN (16:29)
[2017-07-23] MEDS: LEVOFLOXACIN 500 MG TAB PO SCH (16:30)
[2017-07-23 16:52] LABS: Glucose,Whole Blood 117 mg/dL (75-99)
[2017-07-23] MEDS: QUEtiapine 25 MG TAB PO SCH (21:10)
[2017-07-23] MEDS: POLYETHYLENE GLYCOL 3350 17 GM POWD.PACK PO SCH (21:12)
--- NOTE | 2017-07-23 21:21 | P.PN ---
Subjective Progress Note Date: 07/23/17 This is a 77-year-old female patient of Dr. Elizabeth currently residing at [facility] with past medical history COPD on Oxygen , hypertension, obstructive sleep apnea on BiPAP at nighttime, chronic pain, gastric esophageal reflux disease, hypothyroidism, ALLERGIC rhinitis, osteoarthritis, idiopathic peripheral autonomic neuropathy, chronic urinary tract infections, vitamin D deficiency, morbid obesity, bed bound last admitted on 2016 for HCAP and CHF ). Acute hypoxia secondary to acute on chronic diastolic heart failure and COPD exacerbation. Patient was examined bedside and is requiring 10 L of oxygen. She was sent to [facility] on the [place] for physical therapy rehabilitation , patient has been coughing quite a bit of phlegm over the last few days and her oxygen dropped to low 80s on 4 L of oxygen. Patient also endorses sore throat associated with shortness of breath that started yesterday. Arteriogram today suggestive of some mild infiltrate and atelectasis in the posterior lung bases with slightly enlarged heart with changes consistent with some degree of pulmonary hypertension but no pulmonary embolism was seen. Previous Echocardiogram reveals EF of 55-60% with mild concentric left ventricular hypertrophy, severe pulmonary hypertension, mild mitral regurgitation, severe tricuspid regurgitation. Patient has been seen and followed by Dr. Arita from pulmonary medicine and Dr. Desir from cardiology. She is continued on IV Lasix, levofloxacin and IV steroids. 07/23: Patient has so much discomfort with sore throat, patient denies any dysphagia, she has very dry mouth, has been requesting mild sprays mainly to covered up the pain rather than to lubricate the oral cavity, patient still requires 10 L of O2 nasal cannula, patient is noncompliant to any previous use and recommendation to the use of CPAP machine, patient currently is on a pulse ox of on 90% at 10 L nasal cannula Echocardiogram performed showing EF 55-60%, borderline concentric LVH, severe pulmonary hypertension with right ventricular systolic pressure of 90, no pericardial effusion, moderate to severe tricuspid regurgitation Objective - Vital Signs Vital signs: Vital Signs Temp 98.4 F 07/23/17 07:00 Pulse 78 07/23/17 08:49 Resp 18 07/23/17 07:00 BP 118/74 07/23/17 07:00 Pulse Ox 92 L 07/23/17 07:00 Intake & Output 07/22/17 07/23/17 07/23/17 18:59 06:59 18:59 Intake Total 600 Balance 600 Weight 89.5 kg Intake: Oral 600 Other: Voiding Method Incontinent Incontinent # Voids 1 2 - Constitutional General appearance: Present: cooperative, morbidly obese - EENT Eyes: Present: anicteric sclerae, EOMI, PERRLA, dentition normal, normal appearance ENT: Present: NA/AT, normal oropharynx - Neck Neck: Present: normal ROM - Respiratory Respiratory: bilateral: diminished, dullness, negative: rhonchi, wheezing, prolonged expiration, prolonged inspiration - Cardiovascular Rhythm: regular Heart sounds: normal: S1, S2 Abnormal Heart Sounds: Absent: systolic murmur, diastolic murmur, rub, S3 Gallop , S4 Gallop, click, other - Gastrointestinal General gastrointestinal: Present: normal bowel sounds, soft - Integumentary Integumentary: Present: decreased turgor, normal - Neurologic Neurologic: Present: CNII-XII intact - Musculoskeletal Musculoskeletal: Present: strength equal bilaterally - Psychiatric Psychiatric: Present: A&O x's 3, appropriate affect, intact judgment & insight - Labs CBC & Chem 7: 07/23/17 07:34 07/23/17 07:34 Labs: Abnormal Lab Results - Last 24 Hours (Table) 07/22/17 07/22/17 07/22/17 Range/Units 12:25 17:13 20:20 Lymphocytes # (1.0-4.8) k/uL Chloride (98-107) mmol/L Carbon Dioxide (22-30) mmol/L BUN (7-17) mg/dL Glucose (74-99) mg/dL POC Glucose (mg/dL) 142 H 136 H 127 H (75-99) mg/dL 07/23/17 07/23/17 07/23/17 Range/Units 07:27 07:34 07:34 Lymphocytes # 0.4 L (1.0-4.8) k/uL Chloride 96 L (98-107) mmol/L Carbon Dioxide 32 H (22-30) mmol/L BUN 35 H (7-17) mg/dL Glucose 128 H (74-99) mg/dL POC Glucose (mg/dL) 136 H (75-99) mg/dL Microbiology - Last 24 Hours (Table) 07/21/17 12:30 Blood Culture - Preliminary Blood No Growth after 24 hours Assessment and Plan Plan: 1. Acute respiratory insufficiency secondary toacute on chronic diastolic heart failure and COPD exacerbation/ bronchitis . on Lasix 40 mg IV push every 24 hours, levofloxacin IV daily , sputum culture, blood culture, pulmonary consultation, cardiology consultation,Echocardiogram 2016 reveals EF of 55- 60% with mild concentric left ventricular hypertrophy, severe pulmonary hypertension, mild mitral regurgitation, severe tricuspid regurgitation. continue DuoNeb 3 mL nebulization 4 times every day. Continue Solu-Medrol 60 IV every 6 hours Monitor the patient weight on a daily basis. 2. Acute on chronic diastolic heart failure. Continue Toprol-XL 25 mg orally once every day, continue patient on Lasix 40 mg IV push every 24 hours, continue to monitor input and output and daily weight, echocardiogram to be done to evaluate LV function/pulmonary hypertension. 3. Severe pulmonary hypertsion secondary Morbid obesity with PALMIRA noncomplicance to previous cpap/bipap chronically - continue Bipap in the night 4 severe tricuspid regurgitation, with pulmonary hypertension, right ventricle systolic pressure of 91, cardiology is following, continue on IV Lasix, valvular abnormality most likely would possibly need surgical intervention however patient is to high risk of a medical complications. Patient is on BiPAP here however has been refusing treatments all along Medical debility, bedbound . Physical therapy evaluation, discharge to [facility] 5. GERD. Continue Protonix 40 mg orally once every day. 6. Hypertension and hypertensive cardiovascular disease. Continue Toprol-XL 25 mg orally once every day, amlodipine 5 mg orally once every day. 7. Hyperlipidemia. Low-cholesterol diet. 8. Hypothyroidism. Continue Synthroid 125 g orally once every day. 9. Peripheral neuropathy. Continue gabapentin 200 mg orally twice every day. 10. Depressive disorder. Continue patient on Cymbalta 60 mg orally once every day and Lexapro 10 mg orally once every day. 11. Osteoarthritis with joint deformities including the right hand as well as bilateral lower extremity's. 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 12. Anxiety disorder. Continue patient on Lexapro 10 mg orally once every day. 13. ALLERGIC rhinitis. Continue patient on Claritin 10 mg orally once every day. 14. DVT prophylaxis. Continue Lovenox 40 mg subcutaneously every 24 hours. 15. GI prophylaxis. Continue Protonix 40 mg orally once every day. 16. Patient is full code. Estimate a length of stay 2 midnights. 17. Admit to inpatient. 4 Medical debility. Physical therapy evaluation, manager social services consultation for discharge planning.
[2017-07-23 21:43] LABS: Glucose,Whole Blood 125 mg/dL (75-99)
[2017-07-24] MEDS: methylPREDNISolone SOD SUCCI 125 MG/2 ML VIAL IV SCH (06:15)
[2017-07-24] MEDS: NITROGLYCERIN OINT 1 INCH/GM PACKET TOPICAL SCH ×3 (06:15→17:17)
[2017-07-24] MEDS: PANTOPRAZOLE 40 MG TABLET PO SCH (06:16)
[2017-07-24] MEDS: LEVOTHYROXINE 125 MCG TAB PO SCH (06:16)
[2017-07-24] MEDS: BENZOCAINE/MENTHOL LOZENG 1 EACH LOZENGE MUCOUS MEM PRN ×2 (06:22→13:06)
[2017-07-24] MEDS: IPRATROPIUM-ALBUTEROL 3 ML NEB INHALATION SCH ×4 (07:17→19:17)
[2017-07-24 07:20] LABS: Glucose,Whole Blood 131 mg/dL (75-99)
[2017-07-24] MEDS: ALPRAZolam 0.25 MG TAB PO SCH ×3 (08:29→21:29)
[2017-07-24] MEDS: HYDROcodone/APAP 7.5-325MG 1 EACH TAB PO SCH ×2 (08:29→21:27)
[2017-07-24] MEDS: LIDOCAINE VISCOUS 2% 15 ML CUP MUCOUS MEM PRN (08:29)
[2017-07-24] MEDS: ENOXAPARIN 40 MG/0.4 ML SYRINGE SQ SCH (08:30)
[2017-07-24] MEDS: CHOLECALCIFEROL 1,000 UNIT TAB PO SCH (08:30)
[2017-07-24] MEDS: guaiFENesin 600 MG TABLET.ER PO SCH ×2 (08:30→21:30)
[2017-07-24] MEDS: ESCITALOPRAM 10 MG TAB PO SCH (08:31)
[2017-07-24] MEDS: METOPROLOL SUCCINATE (ER) 25 MG TAB.ER.24H PO SCH (08:31)
[2017-07-24] MEDS: POTASSIUM CHLORIDE ER 20 MEQ TAB.ER PO SCH (08:31)
[2017-07-24] MEDS: GABAPENTIN 100 MG CAP PO SCH ×2 (08:31→21:27)
[2017-07-24] MEDS: ASPIRIN 81 MG PO SCH (08:31)
[2017-07-24] MEDS: FUROSEMIDE 10 MG/ML 4 ML VIAL IV SCH ×2 (08:31→21:26)
[2017-07-24] MEDS: amLODIPine 5 MG TAB PO SCH (08:31)
[2017-07-24] MEDS: OSELTAMIVIR 75 MG CAP PO SCH (08:31)
[2017-07-24] MEDS: DULoxetine HCL 60 MG CAPSULE.DR PO SCH ×2 (08:31→21:26)
[2017-07-24] MEDS: SENNOSIDES-DOCUSATE SODIUM 1 EACH TAB PO SCH ×2 (08:32→21:31)
[2017-07-24] MEDS: TOPIRAMATE 25 MG TAB PO SCH ×2 (08:32→21:29)
[2017-07-24] MEDS: LORATADINE 10 MG TAB PO SCH (08:32)
[2017-07-24] MEDS: NYSTATIN 100,000 UNIT/GM POWD 15 GM TOPICAL SCH ×2 (08:33→21:28)
[2017-07-24] MEDS: NALDEMEDINE TOSYLATE 0.2 MG PO SCH (10:05)
[2017-07-24 10:12] LABS: Basophils % (A) 0 %; Eosinophils % (A) 0 %; HCT 40.9 % (34.0-46.0); HGB 12.5 gm/dL (11.4-16.0); Hypochromasia Moderate; Lymphocytes # (A) 0.4 k/uL (1.0-4.8); Lymphocytes % (A) 7 %; MCH 26.7 pg (25.0-35.0); MCHC 30.5 g/dL (31.0-37.0); MCV 87.6 fL (80.0-100.0); Mean Platelet Volume 7.2; Monocytes # (A) 0.2 k/uL (0-1.0); Monocytes % (A) 3 %; Neutrophils # (A) 5.4 k/uL (1.3-7.7); Neutrophils % (A) 89 %; Platelet Count 291 k/uL (150-450); RBC 4.67 m/uL (3.80-5.40); RDW 14.5 % (11.5-15.5)
[2017-07-24 10:25] LABS: Albumin 3.8 g/dL (3.5-5.0); Calcium 9.6 mg/dL (8.4-10.2); Potassium 3.8 mmol/L (3.5-5.1); Total Bilirubin 0.4 mg/dL (0.2-1.3); Total Protein 6.6 g/dL (6.3-8.2)
[2017-07-24 12:13] LABS: Glucose,Whole Blood 134 mg/dL (75-99)
[2017-07-24] MEDS: methylPREDNISolone SOD SUCCI 40 MG/ML 1 ML VIAL IV SCH ×2 (13:04→17:17)
[2017-07-24] MEDS: ACETAMINOPHEN TAB 500 MG TAB PO PRN ×2 (15:18→21:47)
--- NOTE | 2017-07-24 16:37 | P.PN ---
Subjective Progress Note Date: 07/24/17 Acute hypoxic respiratory failure secondary to bilateral lower lobe pneumonias. 77-year-old female patient is well-known to me from previous hospitalizations, the patient is quite debilitated and she is a group home resident and she resides at [facility]. The patient is coming in for increased shortness of breath. The patient was noted to be hypoxic. She had symptoms of increased cough and congestion and subsequently she was found to be blue and cyanotic. Pulse ox was as low as 80% 40s about 2 by nasal cannula. Based on that, the patient was sent to the hospital and the chest x-ray was done and showed some limited infiltration lung bases bilaterally. She is afebrile. No altered mentation. No significant leukocytosis. Her white cell count is at 10.9. The patient is currently on 10 L of oxygen by nasal cannula. She is chronically bedridden. She has some degree of swelling in lower extremities. No previous history of DVT or pulmonary embolism. This is obviously concerning knowing that the patient is sedentary. I've taking care of her in the past for complications of altered mentation pneumonia and UTI and sepsis. No seizure activity. No other complaints otherwise for now. Note that the patient was receiving a combination of Levaquin and Tamiflu on outpatient basis prior to her coming to the hospital and this was given to her at the group home. Note that this patient is morbidly obese female patient who was the left debilitated following a bout of urosepsis that was complicated by prolonged ventilator-dependent history failure around 13 years ago. Since then the patient has been bedridden, significantly debilitated, has crippling deformities both in upper and lower extremities and she has not ambulated. She was living in a group home in the [place] area. More recently the patient underwent her hospitalization at [facility]. She was given a diagnosis of a pneumonia involving the right lower lobe. Hospital- acquired pneumonia was suspected and the patient was treated with antibiotics and due to proximity to her daughter's house the patient got moved to [facility] and she has been in [facility] since then. I've treated for pneumonia back in December 2016 and during that time the patient came into the intensive care unit. She was also treated for urine checked infection and she is known to have VRE urinary tract infection and subsequent Proteus mirabilis urine checked infection. The patient is seen again today 07/23/2017 in follow-up in the regular medical floor. She is currently resting quite comfortably in bed. She is awake and alert in no acute distress. She is doing better today as compared to yesterday. She is currently continuing good O2 saturations in the upper 90s on 8 L high flow nasal cannula. Current temperature 99.7. White count 6.3. Blood cultures revealed no growth to date. She remains on Levaquin and Tamiflu. She remains on bronchodilators and Solu-Medrol. On 07/24/2017, the patient remains symptomatically short of breath and bronchospastic and wheezy. Still on 10 L of oxygen by nasal cannula. Try to cut that down to 80 to however she was unable to tolerate and she had to be placed back on [address] angios the chest showed no evidence of any pulmonary embolism. The patient on Levaquin. The patient on Tamiflu. The patient is also being diuresis with IV Lasix although it's hard to accurately measure the urine output as the patient does not have a Castro catheter and she is incontinent to urine. She is also on IV Solu-Medrol. She is awake and alert. Cough is congested and the patient is not producing much of sputum. Objective - Vital Signs Vital signs: Vital Signs Temp 98.4 F 07/24/17 15:00 Pulse 94 07/24/17 15:00 Resp 20 07/24/17 15:49 BP 128/60 07/24/17 15:00 Pulse Ox 91 L 07/24/17 15:00 Intake & Output 07/23/17 07/24/17 07/24/17 17:59 06:59 18:59 Intake Total 440 Balance 440 Weight Intake: Oral 440 Other: Voiding Method Incontinent # Voids 1 # Bowel Movements - Exam Morbidly obese, calm and comfortable, nonacute distress. The patient is communicating and she has been alert and active and appropriate at this point in time. She is resting comfortably in bed. Head exam was generally normal. There was no scleral icterus or corneal arcus. Mucous membranes were moist. Neck is supple and short and the patient has significant crowding of the posterior oropharynx and the scar of previous tracheostomy tube insertion is seen over the anterior neck. Lung sounds are diminished in lung bases. There are some bibasilar crackles. No wheezes or rhonchi.there is also bilateral extremity wheezes and prolongation of expiratory phase of breathing. Cardiac exam revealed the PMI to be normally situated and sized. The rhythm was regular and no extrasystoles were noted during several minutes of auscultation. The first and second heart sounds were normal and physiologic splitting of the second heart sound was noted. There were no murmurs, rubs, clicks, or gallops. Abdomen is morbidly obese soft nontender. No direct tenderness rebound tensile guarding. Organs cannot be accurately palpated. No ascites. Extremities show chronic edema and chronic deformities in the ankles, feet, and the wrist and the fingers bilaterally. The patient has no open wounds or sores. Sensation is diminished. Motor function in the lower extremity 0-5, 3 out of 5 in the upper extremity. Neurologically, the patient is awake and alert and following commands and answering questions appropriately. - Labs CBC & Chem 7: 07/24/17 08:40 07/24/17 08:40 Labs: Abnormal Lab Results - Last 24 Hours (Table) 07/23/17 07/23/17 07/24/17 Range/Units 16:46 21:29 07:00 MCHC (31.0-37.0) g/dL Lymphocytes # (1.0-4.8) k/uL Chloride (98-107) mmol/L Carbon Dioxide (22-30) mmol/L BUN (7-17) mg/dL Glucose (74-99) mg/dL POC Glucose (mg/dL) 117 H 125 H 131 H (75-99) mg/dL 07/24/17 07/24/17 07/24/17 Range/Units 08:40 08:40 11:59 MCHC 30.5 L (31.0-37.0) g/dL Lymphocytes # 0.4 L (1.0-4.8) k/uL Chloride 95 L (98-107) mmol/L Carbon Dioxide 36 H (22-30) mmol/L BUN 31 H (7-17) mg/dL Glucose 155 H (74-99) mg/dL POC Glucose (mg/dL) 134 H (75-99) mg/dL Microbiology - Last 24 Hours (Table) 07/21/17 12:30 Blood Culture - Preliminary Blood No Growth after 72 hours Assessment and Plan Plan: Assessment 1 acute hypoxic respiratory failure secondary to bilateral lower lobe pneumonia. Computed tomography scan of the chest ruled out pulmonary embolism. There is noted by bilateral infiltrates and small left pleural effusion. In addition, the patient is in acute bronchospasm wheezing probably an underlying asthmatic/COPD exacerbation or reactive bronchospasms secondary to tracheobronchitis. She is on steroids. She also was felt to be in some degree of fluid overload and she is on diuretics. 2 acute shortness of breath secondary to above 3 morbid obesity 4 bedridden, and the patient has not ambulated for the past 13 years at least. Chronic contracture deformity in lower extremities and upper extremities bilaterally. 5 history of urine checked infection 6 hypertension 7 hyperlipidemia 8 hypothyroidism 9 idiopathic peripheral neuropathy 10 depression 11 anxiety disorder 12 acid reflux 13 subsequently the patient also had infections with VRE and Proteus mirabilis and prolonged respiratory failure due to complications of sepsis requiring insertion and subsequent removal of tracheostomy tube. 14 chronic normocytic anemia 15 severe pulmonary hypertension and evidence of right-sided heart failure Plan Continue current treatment. Attempt to wean down the FiO2 as tolerated to maintain a saturation above 90%. Continued IV Solu Medrol. Continue the IV Lasix. Continue bronchodilators. Continue antibiotics. We'll continue to follow.
[2017-07-24] MEDS: LEVOFLOXACIN 500 MG TAB PO SCH (16:46)
[2017-07-24 17:56] LABS: Glucose,Whole Blood 126 mg/dL (75-99)
[2017-07-24 21:04] LABS: Glucose,Whole Blood 145 mg/dL (75-99)
[2017-07-24] MEDS: MELATONIN 3 MG TABLET PO SCH (21:28)
[2017-07-24] MEDS: POLYETHYLENE GLYCOL 3350 17 GM POWD.PACK PO SCH (21:28)
[2017-07-24] MEDS: QUEtiapine 25 MG TAB PO SCH (21:29)
--- NOTE | 2017-07-24 23:16 | P.PN ---
Subjective This is a 77-year-old female patient of Dr. Elizabeth currently residing at [facility] with past medical history COPD on Oxygen , hypertension, obstructive sleep apnea on BiPAP at nighttime, chronic pain, gastric esophageal reflux disease, hypothyroidism, ALLERGIC rhinitis, osteoarthritis, idiopathic peripheral autonomic neuropathy, chronic urinary tract infections, vitamin D deficiency, morbid obesity, bed bound last admitted on 2016 for HCAP and CHF ). Acute hypoxia secondary to acute on chronic diastolic heart failure and COPD exacerbation. Patient was examined bedside and is requiring 10 L of oxygen. She was sent to [facility] on the [place] for physical therapy rehabilitation , patient has been coughing quite a bit of phlegm over the last few days and her oxygen dropped to low 80s on 4 L of oxygen. Patient also endorses sore throat associated with shortness of breath that started yesterday. Arteriogram today suggestive of some mild infiltrate and atelectasis in the posterior lung bases with slightly enlarged heart with changes consistent with some degree of pulmonary hypertension but no pulmonary embolism was seen. Previous Echocardiogram reveals EF of 55-60% with mild concentric left ventricular hypertrophy, severe pulmonary hypertension, mild mitral regurgitation, severe tricuspid regurgitation. Patient has been seen and followed by Dr. Arita from pulmonary medicine and Dr. Desir from cardiology. She is continued on IV Lasix, levofloxacin and IV steroids. 07/23: Patient has so much discomfort with sore throat, patient denies any dysphagia, she has very dry mouth, has been requesting mild sprays mainly to covered up the pain rather than to lubricate the oral cavity, patient still requires 10 L of O2 nasal cannula, patient is noncompliant to any previous use and recommendation to the use of CPAP machine, patient currently is on a pulse ox of on 90% at 10 L nasal cannula Echocardiogram performed showing EF 55-60%, borderline concentric LVH, severe pulmonary hypertension with right ventricular systolic pressure of 90, no pericardial effusion, moderate to severe tricuspid regurgitation 07/24, patient seems to be hyper active today and some agitation noted, patient has not slept for 5 days, she keeps complaining mucus plug in her throat and is difficult to expectorate, patient requires 10 L is a cannula, O2 sats low white 88% at nighttime mainly, patient cannot comply on CPAP or BiPAP treatments here , flutter valve initiated, sore throat is much better, oral mucosae is better looking than yesterday, no fevers, decreasing Solu-Medrol to 40 mg every 6 hours , melatonin 6 mg started at at bedtime secondary to refractory insomnia, patient has scheduled Xanax 0.5 mg 3 times a day along with Seroquel no changes made on those meds Objective - Vital Signs Vital signs: Vital Signs Temp 97.6 F 07/24/17 07:00 Pulse 76 07/24/17 07:31 Resp 20 07/24/17 07:00 BP 123/82 07/24/17 07:00 Pulse Ox 97 07/24/17 07:00 Intake & Output 07/23/17 07/24/17 07/24/17 17:59 06:59 18:59 Intake Total Balance Weight Intake: Oral Other: Voiding Method # Voids # Bowel Movements - Constitutional General appearance: Present: cooperative, mild distress, obese - EENT Eyes: Present: anicteric sclerae, EOMI, PERRLA, dentition normal ENT: Present: NA/AT, normal oropharynx - Neck Neck: Present: normal ROM - Respiratory Respiratory: bilateral: diminished, rhonchi - Cardiovascular Rhythm: regular Heart sounds: normal: S1, S2 Abnormal Heart Sounds: Absent: systolic murmur, diastolic murmur, rub, S3 Gallop , S4 Gallop, click, other - Gastrointestinal General gastrointestinal: Present: normal bowel sounds, soft - Integumentary Integumentary: Present: decreased turgor, normal - Musculoskeletal Musculoskeletal: Present: strength equal bilaterally - Psychiatric Psychiatric: Present: A&O x's 3, appropriate affect - Labs CBC & Chem 7: 07/24/17 08:40 07/24/17 08:40 Labs: Abnormal Lab Results - Last 24 Hours (Table) 07/23/17 07/23/17 07/23/17 Range/Units 12:23 16:46 21:29 MCHC (31.0-37.0) g/dL Lymphocytes # (1.0-4.8) k/uL Chloride (98-107) mmol/L Carbon Dioxide (22-30) mmol/L BUN (7-17) mg/dL Glucose (74-99) mg/dL POC Glucose (mg/dL) 154 H 117 H 125 H (75-99) mg/dL 07/24/17 07/24/17 07/24/17 Range/Units 07:00 08:40 08:40 MCHC 30.5 L (31.0-37.0) g/dL Lymphocytes # 0.4 L (1.0-4.8) k/uL Chloride 95 L (98-107) mmol/L Carbon Dioxide 36 H (22-30) mmol/L BUN 31 H (7-17) mg/dL Glucose 155 H (74-99) mg/dL POC Glucose (mg/dL) 131 H (75-99) mg/dL Microbiology - Last 24 Hours (Table) 07/21/17 12:30 Blood Culture - Preliminary Blood No Growth after 48 hours Assessment and Plan Plan: 1. Acute respiratory insufficiency with chronic hypercarbic respiratory failure secondary toacute on chronic diastolic heart failure and COPD exacerbation/ bronchitis . on Lasix 40 mg IV push every 24 hours, levofloxacin IV daily , sputum culture, blood culture, pulmonary consultation, cardiology consultation,Echocardiogram 2016 reveals EF of 55-60% with mild concentric left ventricular hypertrophy, severe pulmonary hypertension, mild mitral regurgitation, severe tricuspid regurgitation. continue DuoNeb 3 mL nebulization 4 times every day. decrease Solu-Medrol 40 IV every 6 hours Monitor the patient weight on a daily basis. 2. Acute on chronic diastolic heart failure. Continue Toprol-XL 25 mg orally once every day, continue patient on Lasix 40 mg IV push every 24 hours, continue to monitor input and output and daily weight, echocardiogram to be done to evaluate LV function/pulmonary hypertension. 3. Severe pulmonary hypertsion secondary Morbid obesity with PALMIRA noncomplicance to previous cpap/bipap chronically - continue Bipap in the night 4 severe tricuspid regurgitation, with pulmonary hypertension, right ventricle systolic pressure of 91, cardiology is following, continue on IV Lasix, valvular abnormality most likely would possibly need surgical intervention however patient is to high risk of a medical complications. Patient was placed on BiPAP here however has been refusing treatments all along Medical debility, bedbound . Physical therapy evaluation, discharge to [facility] 5. GERD. Continue Protonix 40 mg orally once every day. 6. Hypertension and hypertensive cardiovascular disease. Continue Toprol-XL 25 mg orally once every day, amlodipine 5 mg orally once every day. 7. Hyperlipidemia. Low-cholesterol diet. 8. Hypothyroidism. Continue Synthroid 125 g orally once every day. 9. Peripheral neuropathy. Continue gabapentin 200 mg orally twice every day. 10. Depressive disorder. Continue patient on Cymbalta 60 mg orally once every day and Lexapro 10 mg orally once every day. 11. Osteoarthritis with joint deformities including the right hand as well as bilateral lower extremity's. 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 12. Anxiety disorder. Continue patient on Lexapro 10 mg orally once every day. 13. ALLERGIC rhinitis. Continue patient on Claritin 10 mg orally once every day. 14. DVT prophylaxis. Continue Lovenox 40 mg subcutaneously every 24 hours. 15. GI prophylaxis. Continue Protonix 40 mg orally once every day. 16. Patient is full code. Estimate a length of stay 2 midnights. 17. Admit to inpatient. 4 Medical debility. Physical therapy evaluation, social welfare clerk consultation for discharge planning.
[2017-07-25] MEDS: NITROGLYCERIN OINT 1 INCH/GM PACKET TOPICAL SCH ×4 (00:03→17:55)
[2017-07-25] MEDS: methylPREDNISolone SOD SUCCI 40 MG/ML 1 ML VIAL IV SCH ×4 (00:03→16:38)
[2017-07-25] MEDS: PANTOPRAZOLE 40 MG TABLET PO SCH (05:39)
[2017-07-25] MEDS: LEVOTHYROXINE 125 MCG TAB PO SCH (05:39)
[2017-07-25 07:28] LABS: Glucose,Whole Blood 164 mg/dL (75-99)
[2017-07-25] MEDS: IPRATROPIUM-ALBUTEROL 3 ML NEB INHALATION SCH ×4 (08:19→18:55)
[2017-07-25] MEDS: ASPIRIN 81 MG PO SCH (08:21)
[2017-07-25] MEDS: DULoxetine HCL 60 MG CAPSULE.DR PO SCH ×2 (08:21→21:14)
[2017-07-25] MEDS: TOPIRAMATE 25 MG TAB PO SCH ×2 (08:21→21:12)
[2017-07-25] MEDS: ALPRAZolam 0.25 MG TAB PO SCH ×3 (08:21→21:11)
[2017-07-25] MEDS: ENOXAPARIN 40 MG/0.4 ML SYRINGE SQ SCH (08:21)
[2017-07-25] MEDS: guaiFENesin 600 MG TABLET.ER PO SCH ×2 (08:22→21:12)
[2017-07-25] MEDS: ESCITALOPRAM 10 MG TAB PO SCH (08:22)
[2017-07-25] MEDS: HYDROcodone/APAP 7.5-325MG 1 EACH TAB PO SCH ×2 (08:22→21:10)
[2017-07-25] MEDS: CHOLECALCIFEROL 1,000 UNIT TAB PO SCH (08:22)
[2017-07-25] MEDS: SENNOSIDES-DOCUSATE SODIUM 1 EACH TAB PO SCH ×2 (08:22→21:13)
[2017-07-25] MEDS: GABAPENTIN 100 MG CAP PO SCH ×2 (08:22→21:12)
[2017-07-25] MEDS: amLODIPine 5 MG TAB PO SCH (08:22)
[2017-07-25] MEDS: LORATADINE 10 MG TAB PO SCH (08:22)
[2017-07-25] MEDS: METOPROLOL SUCCINATE (ER) 25 MG TAB.ER.24H PO SCH (08:22)
[2017-07-25] MEDS: OSELTAMIVIR 75 MG CAP PO SCH (08:23)
[2017-07-25] MEDS: NALDEMEDINE TOSYLATE 0.2 MG PO SCH (08:24)
[2017-07-25] MEDS: FUROSEMIDE 10 MG/ML 4 ML VIAL IV SCH ×2 (08:24→21:12)
[2017-07-25 08:45] LABS: Basophils % (A) 0 %; Eosinophils % (A) 0 %; HCT 41.1 % (34.0-46.0); HGB 12.3 gm/dL (11.4-16.0); Hypochromasia Moderate; Lymphocytes # (A) 0.6 k/uL (1.0-4.8); Lymphocytes % (A) 7 %; MCH 26.1 pg (25.0-35.0); MCHC 29.9 g/dL (31.0-37.0); MCV 87.4 fL (80.0-100.0); Mean Platelet Volume 7.1; Monocytes # (A) 0.4 k/uL (0-1.0); Monocytes % (A) 4 %; Neutrophils # (A) 7.4 k/uL (1.3-7.7); Neutrophils % (A) 87 %; Platelet Count 293 k/uL (150-450); RDW 14.5 % (11.5-15.5); WBC 8.5 k/uL (3.8-10.6)
[2017-07-25 09:03] LABS: Albumin 3.7 g/dL (3.5-5.0); Calcium 9.5 mg/dL (8.4-10.2); Potassium 4.1 mmol/L (3.5-5.1); Total Bilirubin 0.5 mg/dL (0.2-1.3); Total Protein 6.6 g/dL (6.3-8.2)
[2017-07-25] MEDS: NYSTATIN 100,000 UNIT/GM POWD 15 GM TOPICAL SCH ×2 (09:50→21:14)
[2017-07-25] MEDS: BENZOCAINE/MENTHOL LOZENG 1 EACH LOZENGE MUCOUS MEM PRN ×2 (09:51→13:23)
[2017-07-25 12:28] LABS: Glucose,Whole Blood 145 mg/dL (75-99)
--- NOTE | 2017-07-25 12:49 | P.PN ---
Subjective Progress Note Date: 07/25/17 Principal diagnosis: Acute hypoxic respiratory failure secondary to bilateral lower lobe pneumonias 77-year-old female patient is well-known to me from previous hospitalizations, the patient is quite debilitated and she is a alf resident and she resides at [facility]. The patient is coming in for increased shortness of breath. The patient was noted to be hypoxic. She had symptoms of increased cough and congestion and subsequently she was found to be blue and cyanotic. Pulse ox was as low as 80% 40s about 2 by nasal cannula. Based on that, the patient was sent to the hospital and the chest x-ray was done and showed some limited infiltration lung bases bilaterally. She is afebrile. No altered mentation. No significant leukocytosis. Her white cell count is at 10.9. The patient is currently on 10 L of oxygen by nasal cannula. She is chronically bedridden. She has some degree of swelling in lower extremities. No previous history of DVT or pulmonary embolism. This is obviously concerning knowing that the patient is sedentary. I've taking care of her in the past for complications of altered mentation pneumonia and UTI and sepsis. No seizure activity. No other complaints otherwise for now. Note that the patient was receiving a combination of Levaquin and Tamiflu on outpatient basis prior to her coming to the hospital and this was given to her at the alf. Note that this patient is morbidly obese female patient who was the left debilitated following a bout of urosepsis that was complicated by prolonged ventilator-dependent history failure around 13 years ago. Since then the patient has been bedridden, significantly debilitated, has crippling deformities both in upper and lower extremities and she has not ambulated. She was living in a alf in the [place] area. More recently the patient underwent her hospitalization at [facility]. She was given a diagnosis of a pneumonia involving the right lower lobe. Hospital- acquired pneumonia was suspected and the patient was treated with antibiotics and due to proximity to her daughter's house the patient got moved to [facility] and she has been in [facility] since then. I've treated for pneumonia back in December 2016 and during that time the patient came into the intensive care unit. She was also treated for urine checked infection and she is known to have VRE urinary tract infection and subsequent Proteus mirabilis urine checked infection. The patient is seen again today 07/23/2017 in follow-up in the regular medical floor. She is currently resting quite comfortably in bed. She is awake and alert in no acute distress. She is doing better today as compared to yesterday. She is currently continuing good O2 saturations in the upper 90s on 8 L high flow nasal cannula. Current temperature 99.7. White count 6.3. Blood cultures revealed no growth to date. She remains on Levaquin and Tamiflu. She remains on bronchodilators and Solu-Medrol. On 07/24/2017, the patient remains symptomatically short of breath and bronchospastic and wheezy. Still on 10 L of oxygen by nasal cannula. Try to cut that down to 80 to however she was unable to tolerate and she had to be placed back on [address] angios the chest showed no evidence of any pulmonary embolism. The patient on Levaquin. The patient on Tamiflu. The patient is also being diuresis with IV Lasix although it's hard to accurately measure the urine output as the patient does not have a Castro catheter and she is incontinent to urine. She is also on IV Solu-Medrol. She is awake and alert. Cough is congested and the patient is not producing much of sputum. On 07/25/2017 patient seen in follow-up, resting in bed, denies any acute distress, complaining of weakness, and generalized fatigue. Patient is chronically bedridden. She remains on 10 L per high flow nasal cannula, with O2 sat at 97-98%. This can probably wean down. She is afebrile, hemodynamically stable. Lung sounds are positive for scattered rhonchi. Patient has a loose congested cough, at times able to bring up some yellow sputum. Remains on IV diuretics, in the form of Lasix 40 mg every 8 hours. She is incontinent of urine, therefore net fluid balance is difficult to estimate. Her weight is down to 3.5 kg in the last 24 hours. Remains on oral Lasix, nebulized treatments, Mucinex and IV steroids. We'll obtain a repeat chest x-ray today Objective - Vital Signs Vital signs: Vital Signs Temp 97.0 F L 07/25/17 06:38 Pulse 80 07/25/17 12:12 Resp 16 03/12/18 08:00 BP 159/70 07/25/17 06:38 Pulse Ox 98 07/25/17 06:38 Intake & Output 07/24/17 07/25/17 07/25/17 18:59 06:59 18:59 Intake Total 440 Balance 440 Weight 91 kg Intake: Oral 440 Other: Voiding Method Incontinent Incontinent Incontinent # Voids 1 2 - Exam GENERAL EXAM: Alert, pleasant, obese 77-year-old white female on 10 L per high flow nasal cannula, comfortable in no apparent distress. HEAD: Normocephalic/atraumatic. EYES: Normal reaction of pupils, equal size. Conjunctiva pink, sclera white. NOSE: Clear with pink turbinates. THROAT: No erythema or exudates. NECK: No masses, no JVD, no thyroid enlargement, no adenopathy. CHEST: No chest wall deformity. Symmetrical expansion. LUNGS: Equal air entry with a few scattered rhonchi. CVS: Regular rate and rhythm, normal S1 and S2, no gallops, no murmurs, no rubs ABDOMEN: Soft, nontender. No hepatosplenomegaly, normal bowel sounds, no guarding or rigidity. EXTREMITIES: No clubbing, no edema, no cyanosis, 2+ pulses and upper and lower extremities. MUSCULOSKELETAL: Muscle strength and tone normal. SPINE: No scoliosis or deformity SKIN: No rashes CENTRAL NERVOUS SYSTEM: Alert and oriented -3. No focal deficits, tone is normal in all 4 extremities. PSYCHIATRIC: Alert and oriented -3. Appropriate affect. Intact judgment and insight. - Labs CBC & Chem 7: 07/25/17 08:06 07/25/17 08:06 Labs: Abnormal Lab Results - Last 24 Hours (Table) 07/24/17 07/24/17 07/25/17 Range/Units 17:24 21:00 07:20 MCHC (31.0-37.0) g/dL Lymphocytes # (1.0-4.8) k/uL Chloride (98-107) mmol/L Carbon Dioxide (22-30) mmol/L BUN (7-17) mg/dL Glucose (74-99) mg/dL POC Glucose (mg/dL) 126 H 145 H 164 H (75-99) mg/dL 07/25/17 07/25/17 07/25/17 Range/Units 08:06 08:06 12:15 MCHC 29.9 L (31.0-37.0) g/dL Lymphocytes # 0.6 L (1.0-4.8) k/uL Chloride 95 L (98-107) mmol/L Carbon Dioxide 35 H (22-30) mmol/L BUN 35 H (7-17) mg/dL Glucose 132 H (74-99) mg/dL POC Glucose (mg/dL) 145 H (75-99) mg/dL Microbiology - Last 24 Hours (Table) 07/24/17 16:40 Gram Stain - Preliminary Sputum 07/21/17 12:30 Blood Culture - Preliminary Blood No Growth after 72 hours Assessment and Plan Plan: Assessment: 1 acute hypoxic respiratory failure secondary to bilateral lower lobe pneumonia. Computed tomography scan of the chest ruled out pulmonary embolism. There is noted by bilateral infiltrates and small left pleural effusion. In addition, the patient is in acute bronchospasm wheezing probably an underlying asthmatic/COPD exacerbation or reactive bronchospasms secondary to tracheobronchitis. She is on steroids. She also was felt to be in some degree of fluid overload and she is on diuretics. 2 acute shortness of breath secondary to above 3 morbid obesity 4 bedridden, and the patient has not ambulated for the past 13 years at least. Chronic contracture deformity in lower extremities and upper extremities bilaterally. 5 history of urine checked infection 6 hypertension 7 hyperlipidemia 8 hypothyroidism 9 idiopathic peripheral neuropathy 10 depression 11 anxiety disorder 12 acid reflux 13 subsequently the patient also had infections with VRE and Proteus mirabilis and prolonged respiratory failure due to complications of sepsis requiring insertion and subsequent removal of tracheostomy tube. 14 chronic normocytic anemia 15 severe pulmonary hypertension and evidence of right-sided heart failure Plan Continue weaning FiO2, encourage incentive spirometry, pulmonary toileting. Obtain a repeat chest x-ray today, patient denies fever, chills, chest pain. Some scattered rhonchi and wheezes were noted, slightly improved. Patient is on IV diuretics, continue for now. Continue antibiotic's, we'll decrease the Solu-Medrol to 40 mg every 8 hours. Nebulized treatments. I performed a history & physical examination of the patient and discussed their management with my nurse practitioner, Delaney Waters. I reviewed the nurse practitioner's note and agree with the documented findings and plan of care. Lung sounds are positive for scattered wheezes and rhonchi throughout the lung jay. The findings and the impression was discussed with the patient. I attest to the documentation by the nurse practitioner. Time with Patient: Less than 30
[2017-07-25] MEDS ORDERED: MORPHINE ORAL SOLN 10 MG/5 ML CUP PO PRN (13:53)
--- NOTE | 2017-07-25 15:16 | P.PN ---
Subjective This is a 77-year-old female patient of Dr. Elizabeth currently residing at [facility] with past medical history COPD on Oxygen , hypertension, obstructive sleep apnea on BiPAP at nighttime, chronic pain, gastric esophageal reflux disease, hypothyroidism, ALLERGIC rhinitis, osteoarthritis, idiopathic peripheral autonomic neuropathy, chronic urinary tract infections, vitamin D deficiency, morbid obesity, bed bound last admitted on 2016 for HCAP and CHF ). Acute hypoxia secondary to acute on chronic diastolic heart failure and COPD exacerbation. Patient was examined bedside and is requiring 10 L of oxygen. She was sent to [facility] on the [place] for physical therapy rehabilitation , patient has been coughing quite a bit of phlegm over the last few days and her oxygen dropped to low 80s on 4 L of oxygen. Patient also endorses sore throat associated with shortness of breath that started yesterday. Arteriogram today suggestive of some mild infiltrate and atelectasis in the posterior lung bases with slightly enlarged heart with changes consistent with some degree of pulmonary hypertension but no pulmonary embolism was seen. Previous Echocardiogram reveals EF of 55-60% with mild concentric left ventricular hypertrophy, severe pulmonary hypertension, mild mitral regurgitation, severe tricuspid regurgitation. Patient has been seen and followed by Dr. Arita from pulmonary medicine and Dr. Desir from cardiology. She is continued on IV Lasix, levofloxacin and IV steroids. 07/23: Patient has so much discomfort with sore throat, patient denies any dysphagia, she has very dry mouth, has been requesting mild sprays mainly to covered up the pain rather than to lubricate the oral cavity, patient still requires 10 L of O2 nasal cannula, patient is noncompliant to any previous use and recommendation to the use of CPAP machine, patient currently is on a pulse ox of on 90% at 10 L nasal cannula Echocardiogram performed showing EF 55-60%, borderline concentric LVH, severe pulmonary hypertension with right ventricular systolic pressure of 90, no pericardial effusion, moderate to severe tricuspid regurgitation 07/24, patient seems to be hyper active today and some agitation noted, patient has not slept for 5 days, she keeps complaining mucus plug in her throat and is difficult to expectorate, patient requires 10 L is a cannula, O2 sats low white 88% at nighttime mainly, patient cannot comply on CPAP or BiPAP treatments here , flutter valve initiated, sore throat is much better, oral mucosae is better looking than yesterday, no fevers, decreasing Solu-Medrol to 40 mg every 6 hours , melatonin 6 mg started at at bedtime secondary to refractory insomnia, patient has scheduled Xanax 0.5 mg 3 times a day along with Seroquel no changes made on those meds 07/25 patient was evaluated today she was noted to be resting comfortably in bed. She still complains of chest congestion and mucus that is difficult to expectorate. She continues on her liters of O2, although O2 was turned down to 8 L she was noted to be 92%. She is encouraged to use incentive spirometry and flutter valve. Repeat chest x-ray done and is pending. She continues on antibiotics and IV Solu-Medrol. Blood cultures are negative to date. Maintain current Lasix dose, admission weight 93.5 kg, today's weight 91 kg. Objective - Vital Signs Vital signs: Vital Signs Temp 98.3 F 07/25/17 14:47 Pulse 86 07/25/17 14:47 Resp 16 07/25/17 14:47 BP 136/81 07/25/17 14:47 Pulse Ox 98 07/25/17 14:47 Intake & Output 07/24/17 07/25/17 07/25/17 18:59 06:59 18:59 Intake Total 440 Balance 440 Weight 91 kg Intake: Oral 440 Other: Voiding Method Incontinent Incontinent Incontinent # Voids 1 2 - Exam - Constitutional General appearance: Present: cooperative, mild distress, obese - EENT Eyes: Present: anicteric sclerae, EOMI, PERRLA, dentition normal ENT: Present: NA/AT, normal oropharynx - Neck Neck: Present: normal ROM - Respiratory Respiratory: bilateral: diminished, rhonchi - Cardiovascular Rhythm: regular Heart sounds: normal: S1, S2 Abnormal Heart Sounds: Absent: systolic murmur, diastolic murmur, rub, S3 Gallop , S4 Gallop, click, other - Gastrointestinal General gastrointestinal: Present: normal bowel sounds, soft - Integumentary Integumentary: Present: decreased turgor, normal - Musculoskeletal Musculoskeletal: Present: strength equal bilaterally - Psychiatric Psychiatric: Present: A&O x's 3, appropriate affect - Labs CBC & Chem 7: 07/25/17 08:06 07/25/17 08:06 Labs: Abnormal Lab Results - Last 24 Hours (Table) 07/24/17 07/24/17 07/25/17 Range/Units 17:24 21:00 07:20 MCHC (31.0-37.0) g/dL Lymphocytes # (1.0-4.8) k/uL Chloride (98-107) mmol/L Carbon Dioxide (22-30) mmol/L BUN (7-17) mg/dL Glucose (74-99) mg/dL POC Glucose (mg/dL) 126 H 145 H 164 H (75-99) mg/dL 07/25/17 07/25/17 07/25/17 Range/Units 08:06 08:06 12:15 MCHC 29.9 L (31.0-37.0) g/dL Lymphocytes # 0.6 L (1.0-4.8) k/uL Chloride 95 L (98-107) mmol/L Carbon Dioxide 35 H (22-30) mmol/L BUN 35 H (7-17) mg/dL Glucose 132 H (74-99) mg/dL POC Glucose (mg/dL) 145 H (75-99) mg/dL Microbiology - Last 24 Hours (Table) 07/21/17 12:30 Blood Culture - Preliminary Blood No Growth after 96 hours 07/24/17 16:40 Gram Stain - Preliminary Sputum Assessment and Plan Plan: 1. Acute respiratory insufficiency with chronic hypercarbic respiratory failure secondary toacute on chronic diastolic heart failure and COPD exacerbation/ bronchitis. on Lasix 40 mg IV push every 24 hours, levofloxacin IV daily , sputum culture, blood culture, pulmonary consultation, cardiology consultation,Echocardiogram 2016 reveals EF of 55-60% with mild concentric left ventricular hypertrophy, severe pulmonary hypertension, mild mitral regurgitation, severe tricuspid regurgitation. continue DuoNeb 3 mL nebulization 4 times every day. decrease Solu-Medrol 40 IV every 6 hours Monitor the patient weight on a daily basis, admission weight 93.5 kg, today's weight 91 kg. 2. Acute on chronic diastolic heart failure. Continue Toprol-XL 25 mg orally once every day, continue patient on Lasix 40 mg IV push every 24 hours, continue to monitor input and output and daily weight, echocardiogram to be done to evaluate LV function/pulmonary hypertension. 3. Severe pulmonary hypertsion secondary Morbid obesity with PALMIRA noncomplicance to previous cpap/bipap chronically - continue Bipap in the night 4 severe tricuspid regurgitation, with pulmonary hypertension, right ventricle systolic pressure of 91, cardiology is following, continue on IV Lasix, valvular abnormality most likely would possibly need surgical intervention however patient is to high risk of a medical complications. Patient was placed on BiPAP here however has been refusing treatments all along Medical debility, bedbound . Physical therapy evaluation, discharge to [facility] 5. GERD. Continue Protonix 40 mg orally once every day. 6. Hypertension and hypertensive cardiovascular disease. Continue Toprol-XL 25 mg orally once every day, amlodipine 5 mg orally once every day. 7. Hyperlipidemia. Low-cholesterol diet. 8. Hypothyroidism. Continue Synthroid 125 g orally once every day. 9. Peripheral neuropathy. Continue gabapentin 200 mg orally twice every day. 10. Depressive disorder. Continue patient on Cymbalta 60 mg orally once every day and Lexapro 10 mg orally once every day. 11. Osteoarthritis with joint deformities including the right hand as well as bilateral lower extremity's. 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 12. Anxiety disorder. Continue patient on Lexapro 10 mg orally once every day. 13. ALLERGIC rhinitis. Continue patient on Claritin 10 mg orally once every day. 14. DVT prophylaxis. Continue Lovenox 40 mg subcutaneously every 24 hours. 15. GI prophylaxis. Continue Protonix 40 mg orally once every day. 16. Patient is full code. Estimate a length of stay 2 midnights. 17. Admit to inpatient. 18. Medical debility. Physical therapy evaluation, social science teacher consultation for discharge planning. The above impression and plan of care have been discussed and directed by signing physician. Maribeth Gonzalez nurse practitioner acting as scribe for signing physician.
--- NOTE | 2017-07-25 15:46 | XR ---
EXAMINATION TYPE: XR chest 1V portable DATE OF EXAM: 07/25/2017 COMPARISON: 07/22/2017 HISTORY: Shortness of breath TECHNIQUE: Single frontal view of the chest is obtained. FINDINGS: Rightward tracheal deviation is unchanged. Superior mediastinal enlargement is also unchan ged from the prior. Heart is mildly enlarged. The previously seen bibasilar atelectasis on the prior CT of 07/22/2017 is not visualized radiographically. Enlarged constantino corresponding to enlarged main pulmo nary arteries from the prior CT, suggestive of pulmonary arterial hypertension. No new focal consolid ation, pleural effusion or pneumothorax. There is destruction of the glenohumeral joints bilaterally, in chronic finding. IMPRESSION: Multiple chronic findings including mediastinal enlargement, main pulmonary artery enlar gement suggesting underlying pulmonary arterial hypertension, and destruction of the glenohumeral kenia nts and no acute cardiopulmonary process.
[2017-07-25] MEDS: ACETAMINOPHEN TAB 500 MG TAB PO PRN (16:37)
[2017-07-25] MEDS: LEVOFLOXACIN 500 MG TAB PO SCH (16:38)
[2017-07-25 17:22] LABS: Glucose,Whole Blood 97 mg/dL (75-99)
[2017-07-25 21:04] LABS: Glucose,Whole Blood 129 mg/dL (75-99)
[2017-07-25] MEDS: QUEtiapine 25 MG TAB PO SCH (21:12)
[2017-07-25] MEDS: MELATONIN 3 MG TABLET PO SCH (21:13)
[2017-07-25] MEDS: POLYETHYLENE GLYCOL 3350 17 GM POWD.PACK PO SCH (21:14)
[2017-07-26] MEDS: methylPREDNISolone SOD SUCCI 40 MG/ML 1 ML VIAL IV SCH ×3 (00:15→20:20)
[2017-07-26] MEDS: NITROGLYCERIN OINT 1 INCH/GM PACKET TOPICAL SCH ×4 (00:15→18:20)
[2017-07-26] MEDS: PANTOPRAZOLE 40 MG TABLET PO SCH (06:31)
[2017-07-26] MEDS: LEVOTHYROXINE 125 MCG TAB PO SCH (06:31)
[2017-07-26 06:58] LABS: Glucose,Whole Blood 115 mg/dL (75-99)
[2017-07-26] MEDS: IPRATROPIUM-ALBUTEROL 3 ML NEB INHALATION SCH ×4 (07:03→20:35)
[2017-07-26] MEDS: HYDROcodone/APAP 7.5-325MG 1 EACH TAB PO SCH ×2 (07:58→20:35)
[2017-07-26] MEDS: ALPRAZolam 0.25 MG TAB PO SCH ×3 (07:58→20:15)
[2017-07-26] MEDS: METOPROLOL SUCCINATE (ER) 25 MG TAB.ER.24H PO SCH (09:25)
[2017-07-26] MEDS: TOPIRAMATE 25 MG TAB PO SCH ×2 (09:25→20:16)
[2017-07-26] MEDS: ENOXAPARIN 40 MG/0.4 ML SYRINGE SQ SCH (09:25)
[2017-07-26] MEDS: guaiFENesin 600 MG TABLET.ER PO SCH ×2 (09:25→20:16)
[2017-07-26] MEDS: LORATADINE 10 MG TAB PO SCH (09:26)
[2017-07-26] MEDS: amLODIPine 5 MG TAB PO SCH (09:26)
[2017-07-26] MEDS: SENNOSIDES-DOCUSATE SODIUM 1 EACH TAB PO SCH ×2 (09:26→20:17)
[2017-07-26] MEDS: ASPIRIN 81 MG PO SCH (09:26)
[2017-07-26] MEDS: CHOLECALCIFEROL 1,000 UNIT TAB PO SCH (09:26)
[2017-07-26] MEDS: GABAPENTIN 100 MG CAP PO SCH ×2 (09:26→20:17)
[2017-07-26] MEDS: ESCITALOPRAM 10 MG TAB PO SCH (09:26)
[2017-07-26] MEDS: OSELTAMIVIR 60 MG/10 ML ORAL SYRINGE PO SCH ×2 (09:27→20:18)
[2017-07-26] MEDS: NALDEMEDINE TOSYLATE 0.2 MG PO SCH (09:27)
[2017-07-26] MEDS: FUROSEMIDE 10 MG/ML 4 ML VIAL IV SCH (09:28)
[2017-07-26] MEDS: NYSTATIN 100,000 UNIT/GM POWD 15 GM TOPICAL SCH ×2 (09:28→20:22)
[2017-07-26] MEDS: DULoxetine HCL 60 MG CAPSULE.DR PO SCH ×2 (09:28→20:18)
[2017-07-26] MEDS: BENZOCAINE/MENTHOL LOZENG 1 EACH LOZENGE MUCOUS MEM PRN ×2 (11:35→15:08)
[2017-07-26] MEDS: ACETAMINOPHEN TAB 500 MG TAB PO PRN (11:35)
[2017-07-26 12:29] LABS: Glucose,Whole Blood 125 mg/dL (75-99)
[2017-07-26] MEDS: LEVOFLOXACIN 500 MG TAB PO SCH (15:11)
[2017-07-26 17:31] LABS: Glucose,Whole Blood 121 mg/dL (75-99)
[2017-07-26] MEDS: FUROSEMIDE 40 MG TAB PO SCH (18:20)
[2017-07-26] MEDS: QUEtiapine 25 MG TAB PO SCH (20:17)
[2017-07-26] MEDS: MELATONIN 3 MG TABLET PO SCH (20:17)
[2017-07-26] MEDS: NYSTATIN 100,000 UNIT/ML SUSP 500,000 UNIT/5 ML CUP PO SCH (20:19)
[2017-07-26] MEDS: POLYETHYLENE GLYCOL 3350 17 GM POWD.PACK PO SCH (20:21)
[2017-07-26 20:46] LABS: Glucose,Whole Blood 147 mg/dL (75-99)
--- NOTE | 2017-07-26 20:59 | P.PN ---
Subjective his is a 77-year-old female patient of Dr. Elizabeth currently residing at [facility] with past medical history COPD on Oxygen , hypertension, obstructive sleep apnea on BiPAP at nighttime, chronic pain, gastric esophageal reflux disease, hypothyroidism, ALLERGIC rhinitis, osteoarthritis, idiopathic peripheral autonomic neuropathy, chronic urinary tract infections, vitamin D deficiency, morbid obesity, bed bound last admitted on 2016 for HCAP and CHF ). Acute hypoxia secondary to acute on chronic diastolic heart failure and COPD exacerbation. Patient was examined bedside and is requiring 10 L of oxygen. She was sent to [facility] [place] for physical therapy rehabilitation , patient has been coughing quite a bit of phlegm over the last few days and her oxygen dropped to low 80s on 4 L of oxygen. Patient also endorses sore throat associated with shortness of breath that started yesterday. Arteriogram today suggestive of some mild infiltrate and atelectasis in the posterior lung bases with slightly enlarged heart with changes consistent with some degree of pulmonary hypertension but no pulmonary embolism was seen. Previous Echocardiogram reveals EF of 55-60% with mild concentric left ventricular hypertrophy, severe pulmonary hypertension, mild mitral regurgitation, severe tricuspid regurgitation. Patient has been seen and followed by Dr. Arita from pulmonary medicine and Dr. Desir from cardiology. She is continued on IV Lasix, levofloxacin and IV steroids. 07/23: Patient has so much discomfort with sore throat, patient denies any dysphagia, she has very dry mouth, has been requesting mild sprays mainly to covered up the pain rather than to lubricate the oral cavity, patient still requires 10 L of O2 nasal cannula, patient is noncompliant to any previous use and recommendation to the use of CPAP machine, patient currently is on a pulse ox of on 90% at 10 L nasal cannula Echocardiogram performed showing EF 55-60%, borderline concentric LVH, severe pulmonary hypertension with right ventricular systolic pressure of 90, no pericardial effusion, moderate to severe tricuspid regurgitation 07/24, patient seems to be hyper active today and some agitation noted, patient has not slept for 5 days, she keeps complaining mucus plug in her throat and is difficult to expectorate, patient requires 10 L is a cannula, O2 sats low white 88% at nighttime mainly, patient cannot comply on CPAP or BiPAP treatments here , flutter valve initiated, sore throat is much better, oral mucosae is better looking than yesterday, no fevers, decreasing Solu-Medrol to 40 mg every 6 hours , melatonin 6 mg started at at bedtime secondary to refractory insomnia, patient has scheduled Xanax 0.5 mg 3 times a day along with Seroquel no changes made on those meds 07/25 patient was evaluated today she was noted to be resting comfortably in bed. She still complains of chest congestion and mucus that is difficult to expectorate. She continues on her liters of O2, although O2 was turned down to 8 L she was noted to be 92%. She is encouraged to use incentive spirometry and flutter valve. Repeat chest x-ray done and is pending. She continues on antibiotics and IV Solu-Medrol. Blood cultures are negative to date. Maintain current Lasix dose, admission weight 93.5 kg, today's weight 91 kg. 07/26: Patient is progressing well, hypoxemia is less, patient currently is between 4-5 L nasal cannula pulse ox between 95-96%, still has coarse cough, and sore throat, patient has oral yeast changes now in view at the vehicle mucosa, oral candidal nystatin would be provided, patient is pleased with her treatments here, currently on oral Lasix 40 mg twice a day, and Solu- Medrol 40 mg every 12 hours Objective - Vital Signs Vital signs: Vital Signs Temp 98.2 F 07/26/17 15:00 Pulse 94 07/26/17 20:48 Resp 18 07/26/17 16:00 BP 116/60 07/26/17 15:00 Pulse Ox 90 L 07/26/17 15:00 Intake & Output 07/26/17 07/26/17 07/27/17 06:59 18:59 06:59 Weight 93.5 kg Other: Voiding Method Incontinent Incontinent # Voids 1 0 # Bowel Movements 0 - Labs CBC & Chem 7: 07/25/17 08:06 07/25/17 08:06 Labs: Abnormal Lab Results - Last 24 Hours (Table) 07/25/17 07/26/17 07/26/17 Range/Units 21:02 06:55 12:27 POC Glucose (mg/dL) 129 H 115 H 125 H (75-99) mg/dL 07/26/17 07/26/17 Range/Units 17:20 20:44 POC Glucose (mg/dL) 121 H 147 H (75-99) mg/dL Microbiology - Last 24 Hours (Table) 07/21/17 12:30 Blood Culture - Preliminary Blood No Growth after 120 hours 07/24/17 16:40 Gram Stain - Final Sputum Sputum Culture - Final Hannah albicans Assessment and Plan Plan: 1. Acute respiratory insufficiency with chronic hypercarbic respiratory failure secondary toacute on chronic diastolic heart failure and COPD exacerbation/ bronchitis. on Lasix 40 mg IV push every 24 hours, levofloxacin IV daily , sputum culture, blood culture, pulmonary consultation, cardiology consultation,Echocardiogram 2016 reveals EF of 55-60% with mild concentric left ventricular hypertrophy, severe pulmonary hypertension, mild mitral regurgitation, severe tricuspid regurgitation. continue DuoNeb 3 mL nebulization 4 times every day. decrease Solu-Medrol 40 IV every 12hours Monitor the patient weight on a daily basis, admission weight 93.5 kg, today's weight 91 kg. 2. Acute on chronic diastolic heart failure. Continue Toprol-XL 25 mg orally once every day, continue patient on Lasix 40 mg IV push every 24 hours, continue to monitor input and output and daily weight, echocardiogram to be done to evaluate LV function/pulmonary hypertension. 3. Severe pulmonary hypertsion secondary Morbid obesity with PALMIRA noncomplicance to previous cpap/bipap chronically - continue Bipap in the night 4 severe tricuspid regurgitation, with pulmonary hypertension, right ventricle systolic pressure of 91, cardiology is following, continue on IV Lasix, valvular abnormality most likely would possibly need surgical intervention however patient is to high risk of a medical complications. Patient was placed on BiPAP here however has been refusing treatments all along Medical debility, bedbound . Physical therapy evaluation, discharge to [facility] 5. GERD. Continue Protonix 40 mg orally once every day. 6. Hypertension and hypertensive cardiovascular disease. Continue Toprol-XL 25 mg orally once every day, amlodipine 5 mg orally once every day. 7. Hyperlipidemia. Low-cholesterol diet. 8. Hypothyroidism. Continue Synthroid 125 g orally once every day. 9. Peripheral neuropathy. Continue gabapentin 200 mg orally twice every day. 10. Depressive disorder. Continue patient on Cymbalta 60 mg orally once every day and Lexapro 10 mg orally once every day. 11. Osteoarthritis with joint deformities including the right hand as well as bilateral lower extremity's. 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 12. Anxiety disorder. Continue patient on Lexapro 10 mg orally once every day. 13. ALLERGIC rhinitis. Continue patient on Claritin 10 mg orally once every day. 14. DVT prophylaxis. Continue Lovenox 40 mg subcutaneously every 24 hours. 15. GI prophylaxis. Continue Protonix 40 mg orally once every day. 16. Patient is full code. Estimate a length of stay 2 midnights. 17. Admit to inpatient. 18. Medical debility. Physical therapy evaluation, social contact worker consultation for discharge planning. 19. Oral hannah, nystatin swish and swallow 10 day treatment 20. Patient is completing Tamiflu, influenza negative IV treatment completed on July 26, last dose today
[2017-07-26 22:57] VITALS: RESP 16
[2017-07-27] MEDS: NITROGLYCERIN OINT 1 INCH/GM PACKET TOPICAL SCH ×3 (05:38→11:52)
[2017-07-27 06:29] VITALS: BP 101/71; TEMP 98.3
[2017-07-27] MEDS: LEVOTHYROXINE 125 MCG TAB PO SCH (06:41)
[2017-07-27] MEDS: PANTOPRAZOLE 40 MG TABLET PO SCH (06:41)
[2017-07-27] MEDS: BENZOCAINE/MENTHOL LOZENG 1 EACH LOZENGE MUCOUS MEM PRN (06:45)
[2017-07-27] MEDS: IPRATROPIUM-ALBUTEROL 3 ML NEB INHALATION SCH ×3 (07:19→15:38)
[2017-07-27 07:41] LABS: Glucose,Whole Blood 116 mg/dL (75-99)
[2017-07-27] MEDS: NYSTATIN 100,000 UNIT/ML SUSP 500,000 UNIT/5 ML CUP PO SCH ×2 (08:41→11:51)
[2017-07-27] MEDS: methylPREDNISolone SOD SUCCI 40 MG/ML 1 ML VIAL IV SCH (08:42)
[2017-07-27] MEDS: TOPIRAMATE 25 MG TAB PO SCH (08:43)
[2017-07-27] MEDS: HYDROcodone/APAP 7.5-325MG 1 EACH TAB PO SCH (08:43)
[2017-07-27] MEDS: METOPROLOL SUCCINATE (ER) 25 MG TAB.ER.24H PO SCH (08:43)
[2017-07-27] MEDS: ENOXAPARIN 40 MG/0.4 ML SYRINGE SQ SCH (08:43)
[2017-07-27] MEDS: CHOLECALCIFEROL 1,000 UNIT TAB PO SCH (08:43)
[2017-07-27] MEDS: ALPRAZolam 0.25 MG TAB PO SCH (08:43)
[2017-07-27] MEDS: LORATADINE 10 MG TAB PO SCH (08:44)
[2017-07-27] MEDS: FUROSEMIDE 40 MG TAB PO SCH (08:44)
[2017-07-27] MEDS: guaiFENesin 600 MG TABLET.ER PO SCH (08:44)
[2017-07-27] MEDS: DULoxetine HCL 60 MG CAPSULE.DR PO SCH (08:44)
[2017-07-27] MEDS: GABAPENTIN 100 MG CAP PO SCH (08:44)
[2017-07-27] MEDS: amLODIPine 5 MG TAB PO SCH (08:44)
[2017-07-27] MEDS: SENNOSIDES-DOCUSATE SODIUM 1 EACH TAB PO SCH (08:44)
[2017-07-27] MEDS: ASPIRIN 81 MG PO SCH (08:44)
[2017-07-27] MEDS: NYSTATIN 100,000 UNIT/GM POWD 15 GM TOPICAL SCH (08:45)
[2017-07-27] MEDS: NALDEMEDINE TOSYLATE 0.2 MG PO SCH (08:45)
[2017-07-27] MEDS: ESCITALOPRAM 10 MG TAB PO SCH (08:47)
[2017-07-27 10:35] LABS: Basophils % (A) 0 %; Eosinophils % (A) 0 %; HGB 12.9 gm/dL (11.4-16.0); Hypochromasia Slight; Lymphocytes # (A) 1.6 k/uL (1.0-4.8); Lymphocytes % (A) 11 %; MCH 27.1 pg (25.0-35.0); MCHC 31.4 g/dL (31.0-37.0); MCV 86.3 fL (80.0-100.0); Mean Platelet Volume 7.5; Monocytes # (A) 0.9 k/uL (0-1.0); Monocytes % (A) 6 %; Neutrophils # (A) 11.9 k/uL (1.3-7.7); Neutrophils % (A) 81 %; Platelet Count 318 k/uL (150-450); RBC 4.75 m/uL (3.80-5.40); RDW 14.1 % (11.5-15.5); WBC 14.6 k/uL (3.8-10.6)
[2017-07-27 10:47] LABS: Calcium 9.3 mg/dL (8.4-10.2); Potassium 3.3 mmol/L (3.5-5.1)
--- NOTE | 2017-07-27 10:53 | P.PN ---
Subjective Progress Note Date: 07/26/17 Principal diagnosis: Acute hypoxic respiratory failure secondary to bilateral lower lobe pneumonias 77-year-old female patient is well-known to me from previous hospitalizations, the patient is quite debilitated and she is a alf resident and she resides at [facility]. The patient is coming in for increased shortness of breath. The patient was noted to be hypoxic. She had symptoms of increased cough and congestion and subsequently she was found to be blue and cyanotic. Pulse ox was as low as 80% 40s about 2 by nasal cannula. Based on that, the patient was sent to the hospital and the chest x-ray was done and showed some limited infiltration lung bases bilaterally. She is afebrile. No altered mentation. No significant leukocytosis. Her white cell count is at 10.9. The patient is currently on 10 L of oxygen by nasal cannula. She is chronically bedridden. She has some degree of swelling in lower extremities. No previous history of DVT or pulmonary embolism. This is obviously concerning knowing that the patient is sedentary. I've taking care of her in the past for complications of altered mentation pneumonia and UTI and sepsis. No seizure activity. No other complaints otherwise for now. Note that the patient was receiving a combination of Levaquin and Tamiflu on outpatient basis prior to her coming to the hospital and this was given to her at the alf. Note that this patient is morbidly obese female patient who was the left debilitated following a bout of urosepsis that was complicated by prolonged ventilator-dependent history failure around 13 years ago. Since then the patient has been bedridden, significantly debilitated, has crippling deformities both in upper and lower extremities and she has not ambulated. She was living in a alf in the [place] area. More recently the patient underwent her hospitalization at [facility]. She was given a diagnosis of a pneumonia involving the right lower lobe. Hospital- acquired pneumonia was suspected and the patient was treated with antibiotics and due to proximity to her daughter's house the patient got moved to [facility] and she has been in [facility] since then. I've treated for pneumonia back in December 2016 and during that time the patient came into the intensive care unit. She was also treated for urine checked infection and she is known to have VRE urinary tract infection and subsequent Proteus mirabilis urine checked infection. The patient is seen again today 07/23/2017 in follow-up in the regular medical floor. She is currently resting quite comfortably in bed. She is awake and alert in no acute distress. She is doing better today as compared to yesterday. She is currently continuing good O2 saturations in the upper 90s on 8 L high flow nasal cannula. Current temperature 99.7. White count 6.3. Blood cultures revealed no growth to date. She remains on Levaquin and Tamiflu. She remains on bronchodilators and Solu-Medrol. On 07/24/2017, the patient remains symptomatically short of breath and bronchospastic and wheezy. Still on 10 L of oxygen by nasal cannula. Try to cut that down to 80 to however she was unable to tolerate and she had to be placed back on [address] angios the chest showed no evidence of any pulmonary embolism. The patient on Levaquin. The patient on Tamiflu. The patient is also being diuresis with IV Lasix although it's hard to accurately measure the urine output as the patient does not have a Castro catheter and she is incontinent to urine. She is also on IV Solu-Medrol. She is awake and alert. Cough is congested and the patient is not producing much of sputum. On 07/25/2017 patient seen in follow-up, resting in bed, denies any acute distress, complaining of weakness, and generalized fatigue. Patient is chronically bedridden. She remains on 10 L per high flow nasal cannula, with O2 sat at 97-98%. This can probably wean down. She is afebrile, hemodynamically stable. Lung sounds are positive for scattered rhonchi. Patient has a loose congested cough, at times able to bring up some yellow sputum. Remains on IV diuretics, in the form of Lasix 40 mg every 8 hours. She is incontinent of urine, therefore net fluid balance is difficult to estimate. Her weight is down to 3.5 kg in the last 24 hours. Remains on oral Lasix, nebulized treatments, Mucinex and IV steroids. We'll obtain a repeat chest x-ray today On 07/26/2017 patient is seen in follow-up. Her FiO2 is currently down to 6 L per nasal cannula, with pulse ox between 90-95%, patient is afebrile, hemodynamically stable. Lung sounds remain congested with some scattered wheezing, but this is an improvement from yesterday's exam. Patient is using the incentive spirometry, and the flutter valve, and is bringing up yellow and white sputum. Yesterday's chest x-ray was reviewed, no new focal consolidation , pleural effusion was noted. No acute cardiopulmonary process. Sputum culture was positive for Hannah albicans, blood cultures were negative. Patient continues on Levaquin, Tamiflu, nebulized treatments, and IV diuretics. Objective - Vital Signs Vital signs: Vital Signs Temp 97.0 F L 07/26/17 07:00 Pulse 94 07/26/17 11:15 Resp 18 07/26/17 08:00 BP 146/75 07/26/17 07:00 Pulse Ox 95 07/26/17 07:00 Intake & Output 07/25/17 07/26/17 07/26/17 18:59 06:59 18:59 Weight 93.5 kg Other: Voiding Method Incontinent Incontinent Incontinent # Voids 1 - Exam GENERAL EXAM: Alert, pleasant, obese 77-year-old white female on 10 L per high flow nasal cannula, comfortable in no apparent distress. HEAD: Normocephalic/atraumatic. EYES: Normal reaction of pupils, equal size. Conjunctiva pink, sclera white. NOSE: Clear with pink turbinates. THROAT: No erythema or exudates. NECK: No masses, no JVD, no thyroid enlargement, no adenopathy. CHEST: No chest wall deformity. Symmetrical expansion. LUNGS: Equal air entry with a scattered rhonchi. CVS: Regular rate and rhythm, normal S1 and S2, no gallops, no murmurs, no rubs ABDOMEN: Soft, nontender. No hepatosplenomegaly, normal bowel sounds, no guarding or rigidity. EXTREMITIES: No clubbing, no edema, no cyanosis, 2+ pulses and upper and lower extremities. MUSCULOSKELETAL: Muscle strength and tone normal. SPINE: No scoliosis or deformity SKIN: No rashes CENTRAL NERVOUS SYSTEM: Alert and oriented -3. No focal deficits, tone is normal in all 4 extremities. PSYCHIATRIC: Alert and oriented -3. Appropriate affect. Intact judgment and insight. - Labs CBC & Chem 7: 07/25/17 08:06 07/25/17 08:06 Labs: Abnormal Lab Results - Last 24 Hours (Table) 07/25/17 07/26/17 07/26/17 Range/Units 21:02 06:55 12:27 POC Glucose (mg/dL) 129 H 115 H 125 H (75-99) mg/dL Microbiology - Last 24 Hours (Table) 07/24/17 16:40 Gram Stain - Final Sputum Sputum Culture - Final Hannah albicans 07/21/17 12:30 Blood Culture - Preliminary Blood No Growth after 96 hours Assessment and Plan Plan: Assessment: 1 acute hypoxic respiratory failure secondary to bilateral lower lobe pneumonia. Computed tomography scan of the chest ruled out pulmonary embolism. There is noted by bilateral infiltrates and small left pleural effusion. In addition, the patient is in acute bronchospasm wheezing probably an underlying asthmatic/COPD exacerbation or reactive bronchospasms secondary to tracheobronchitis. She is on steroids. She also was felt to be in some degree of fluid overload and she is on diuretics. 2 acute shortness of breath secondary to above 3 morbid obesity 4 bedridden, and the patient has not ambulated for the past 13 years at least. Chronic contracture deformity in lower extremities and upper extremities bilaterally. 5 history of urine checked infection 6 hypertension 7 hyperlipidemia 8 hypothyroidism 9 idiopathic peripheral neuropathy 10 depression 11 anxiety disorder 12 acid reflux 13 subsequently the patient also had infections with VRE and Proteus mirabilis and prolonged respiratory failure due to complications of sepsis requiring insertion and subsequent removal of tracheostomy tube. 14 chronic normocytic anemia 15 severe pulmonary hypertension and evidence of right-sided heart failure Plan Continue current antibiotic coverage, Levaquin and Tamiflu. Continue nebulized treatments, we'll decrease the IV steroids to 40 mg every 12 hours. Continue incentive spirometry, pulmonary toileting with flutter valve. Weaning FiO2, obtain repeat blood work in the morning. Chest x-ray from 07/25/2017 was reviewed, did not show any acute process, no evidence of congestive heart failure. We will stop the IV Lasix, and start oral Lasix at 40 mg twice a day. Continue weaning the FiO2. Patient's can be considered for discharge back to the [facility] rehab tomorrow if she continues to improve. I performed a history & physical examination of the patient and discussed their management with my nurse practitioner, Delaney Waters. I reviewed the nurse practitioner's note and agree with the documented findings and plan of care. Lung sounds are positive for scattered rhonchi throughout the lung jay. The findings and the impression was discussed with the patient. I attest to the documentation by the nurse practitioner. Time with Patient: Less than 30
--- NOTE | 2017-07-27 11:00 | P.PN ---
Subjective Progress Note Date: 07/27/17 Principal diagnosis: Acute hypoxic respiratory failure secondary to bilateral lower lobe pneumonias 77-year-old female patient is well-known to me from previous hospitalizations, the patient is quite debilitated and she is a intermediate resident and she resides at [facility]. The patient is coming in for increased shortness of breath. The patient was noted to be hypoxic. She had symptoms of increased cough and congestion and subsequently she was found to be blue and cyanotic. Pulse ox was as low as 80% 40s about 2 by nasal cannula. Based on that, the patient was sent to the hospital and the chest x-ray was done and showed some limited infiltration lung bases bilaterally. She is afebrile. No altered mentation. No significant leukocytosis. Her white cell count is at 10.9. The patient is currently on 10 L of oxygen by nasal cannula. She is chronically bedridden. She has some degree of swelling in lower extremities. No previous history of DVT or pulmonary embolism. This is obviously concerning knowing that the patient is sedentary. I've taking care of her in the past for complications of altered mentation pneumonia and UTI and sepsis. No seizure activity. No other complaints otherwise for now. Note that the patient was receiving a combination of Levaquin and Tamiflu on outpatient basis prior to her coming to the hospital and this was given to her at the intermediate. Note that this patient is morbidly obese female patient who was the left debilitated following a bout of urosepsis that was complicated by prolonged ventilator-dependent history failure around 13 years ago. Since then the patient has been bedridden, significantly debilitated, has crippling deformities both in upper and lower extremities and she has not ambulated. She was living in a intermediate in the [place] area. More recently the patient underwent her hospitalization at [facility]. She was given a diagnosis of a pneumonia involving the right lower lobe. Hospital- acquired pneumonia was suspected and the patient was treated with antibiotics and due to proximity to her daughter's house the patient got moved to [facility] and she has been in [facility] since then. I've treated for pneumonia back in December 2016 and during that time the patient came into the intensive care unit. She was also treated for urine checked infection and she is known to have VRE urinary tract infection and subsequent Proteus mirabilis urine checked infection. The patient is seen again today 07/23/2017 in follow-up in the regular medical floor. She is currently resting quite comfortably in bed. She is awake and alert in no acute distress. She is doing better today as compared to yesterday. She is currently continuing good O2 saturations in the upper 90s on 8 L high flow nasal cannula. Current temperature 99.7. White count 6.3. Blood cultures revealed no growth to date. She remains on Levaquin and Tamiflu. She remains on bronchodilators and Solu-Medrol. On 07/24/2017, the patient remains symptomatically short of breath and bronchospastic and wheezy. Still on 10 L of oxygen by nasal cannula. Try to cut that down to 80 to however she was unable to tolerate and she had to be placed back on [address] angios the chest showed no evidence of any pulmonary embolism. The patient on Levaquin. The patient on Tamiflu. The patient is also being diuresis with IV Lasix although it's hard to accurately measure the urine output as the patient does not have a Castro catheter and she is incontinent to urine. She is also on IV Solu-Medrol. She is awake and alert. Cough is congested and the patient is not producing much of sputum. On 07/25/2017 patient seen in follow-up, resting in bed, denies any acute distress, complaining of weakness, and generalized fatigue. Patient is chronically bedridden. She remains on 10 L per high flow nasal cannula, with O2 sat at 97-98%. This can probably wean down. She is afebrile, hemodynamically stable. Lung sounds are positive for scattered rhonchi. Patient has a loose congested cough, at times able to bring up some yellow sputum. Remains on IV diuretics, in the form of Lasix 40 mg every 8 hours. She is incontinent of urine, therefore net fluid balance is difficult to estimate. Her weight is down to 3.5 kg in the last 24 hours. Remains on oral Lasix, nebulized treatments, Mucinex and IV steroids. We'll obtain a repeat chest x-ray today On 07/26/2017 patient is seen in follow-up. Her FiO2 is currently down to 6 L per nasal cannula, with pulse ox between 90-95%, patient is afebrile, hemodynamically stable. Lung sounds remain congested with some scattered wheezing, but this is an improvement from yesterday's exam. Patient is using the incentive spirometry, and the flutter valve, and is bringing up yellow and white sputum. Yesterday's chest x-ray was reviewed, no new focal consolidation , pleural effusion was noted. No acute cardiopulmonary process. Sputum culture was positive for Hannah albicans, blood cultures were negative. Patient continues on Levaquin, Tamiflu, nebulized treatments, and IV diuretics. On 07/27/2017 patient seen in follow-up. She is down to 4 L on her FiO2. She has been using her flutter valve, and she is expectorating thick yellow sputum. Complaining of decreased hearing in bilateral ears, states it feels like there is fluid in the ears. But denies any ear pain. Yesterday patient was placed on oral nystatin swish and swallow for the oral candidiasis. She states she has a sore throat, and nasal congestion she thinks he may be related to the oxygen. She is utilizing [place] for her nasal stuffiness. No febrile episodes, vital signs are stable. Blood culture is negative since admission. Sputum culture was only positive for Hannah, which is most likely contaminated by the oral jorge. Yesterday we switched to IV Lasix to oral Lasix. Lung sounds are positive for some scattered wheezes, but patient sounds are much less congested on today's exam. She continues on oral Levaquin, Tamiflu, Mucinex, and nebulized treatments. She remains stable from pulmonary standpoint , and she is stable for discharge back to [facility] [place] today Objective - Vital Signs Vital signs: Vital Signs Temp 98.3 F 07/27/17 06:29 Pulse 96 07/27/17 07:20 Resp 16 07/27/17 06:29 BP 101/71 07/27/17 06:29 Pulse Ox 97 07/27/17 06:29 Intake & Output 07/26/17 07/27/17 07/27/17 18:59 06:59 18:59 Intake Total 600 Balance 600 Weight 98.3 kg 98.3 kg Intake: Oral 600 Other: Voiding Method Incontinent Incontinent Incontinent # Voids 1 0 # Bowel Movements 0 - Exam GENERAL EXAM: Alert, pleasant, obese 77-year-old white female on 10 L per high flow nasal cannula, comfortable in no apparent distress. HEAD: Normocephalic/atraumatic. EYES: Normal reaction of pupils, equal size. Conjunctiva pink, sclera white. NOSE: Clear with pink turbinates. THROAT: No erythema or exudates. NECK: No masses, no JVD, no thyroid enlargement, no adenopathy. CHEST: No chest wall deformity. Symmetrical expansion. LUNGS: Equal air entry with some scattered wheezes, a few rhonchi, but overall much less congested compared to yesterday's exam. CVS: Regular rate and rhythm, normal S1 and S2, no gallops, no murmurs, no rubs ABDOMEN: Soft, nontender. No hepatosplenomegaly, normal bowel sounds, no guarding or rigidity. EXTREMITIES: No clubbing, no edema, no cyanosis, 2+ pulses and upper and lower extremities. MUSCULOSKELETAL: Muscle strength and tone normal. SPINE: No scoliosis or deformity SKIN: No rashes CENTRAL NERVOUS SYSTEM: Alert and oriented -3. No focal deficits, tone is normal in all 4 extremities. PSYCHIATRIC: Alert and oriented -3. Appropriate affect. Intact judgment and insight. - Labs CBC & Chem 7: 07/25/17 08:06 07/25/17 08:06 Labs: Abnormal Lab Results - Last 24 Hours (Table) 07/26/17 07/26/17 07/26/17 Range/Units 12:27 17:20 20:44 POC Glucose (mg/dL) 125 H 121 H 147 H (75-99) mg/dL 07/27/17 Range/Units 06:54 POC Glucose (mg/dL) 116 H (75-99) mg/dL Microbiology - Last 24 Hours (Table) 07/21/17 12:30 Blood Culture - Preliminary Blood No Growth after 120 hours 07/24/17 16:40 Gram Stain - Final Sputum Sputum Culture - Final Hannah albicans Assessment and Plan Plan: Assessment: 1 acute hypoxic respiratory failure secondary to bilateral lower lobe pneumonia. Computed tomography scan of the chest ruled out pulmonary embolism. There is noted by bilateral infiltrates and small left pleural effusion. In addition, the patient is in acute bronchospasm wheezing probably an underlying asthmatic/COPD exacerbation or reactive bronchospasms secondary to tracheobronchitis. She is on steroids. She also was felt to be in some degree of fluid overload and she is on diuretics. Yesterday IV diuretics were switched to oral diuretics, repeat chest x-ray was reviewed, there is no evidence of congestive heart failure or fluid overload and pleural effusions. Hence the IV diuretics were switched to oral Lasix 2 acute shortness of breath secondary to above 3 morbid obesity 4 bedridden, and the patient has not ambulated for the past 13 years at least. Chronic contracture deformity in lower extremities and upper extremities bilaterally. 5 history of urine checked infection 6 hypertension 7 hyperlipidemia 8 hypothyroidism 9 idiopathic peripheral neuropathy 10 depression 11 anxiety disorder 12 acid reflux 13 subsequently the patient also had infections with VRE and Proteus mirabilis and prolonged respiratory failure due to complications of sepsis requiring insertion and subsequent removal of tracheostomy tube. 14 chronic normocytic anemia 15 severe pulmonary hypertension and evidence of right-sided heart failure Plan Patient remains stable from pulmonary standpoint, FiO2 down to 4 L per nasal cannula, which is what she wears at the [facility]. Continue Tamiflu, Levaquin, oral Lasix, nebulized treatments. Vital signs are stable, patient is afebrile. From pulmonary standpoint she is stable for discharge back to the [facility] today. I performed a history & physical examination of the patient and discussed their management with my nurse practitioner, Delaney Waters. I reviewed the nurse practitioner's note and agree with the documented findings and plan of care. Lung sounds are positive for some scattered wheezes and a few rhonchi. The findings and the impression was discussed with the patient. I attest to the documentation by the nurse practitioner. Time with Patient: Less than 30
[2017-07-27 12:07] LABS: Glucose,Whole Blood 102 mg/dL (75-99)
[2017-07-27] MEDS ORDERED: POTASSIUM CHLORIDE ER 20 MEQ TAB.ER PO STA (14:48)
--- NOTE | 2017-07-27 14:48 | P.DS ---
Providers Date of admission: 07/21/17 15:15 Expected date of discharge: 07/27/17 Attending physician: Edilberto Lopez MD Consults: 07/21/17 15:23 Consult Physician Routine Consulting Provider: Kamlesh Yuan Consult Reason/Comments: CHF Do you want consulting provider notified?: Yes Consult Physician Stat Consulting Provider: Celena Arita Consult Reason/Comments: COPD exacerbation with CHF Do you want consulting provider notified?: Yes Primary care physician: Gracia Elizabeth Hospital Course: This is a 77-year-old female patient of Dr. Elizabeth currently residing at [facility] with past medical history COPD on Oxygen , hypertension, obstructive sleep apnea on BiPAP at nighttime, chronic pain, gastric esophageal reflux disease, hypothyroidism, ALLERGIC rhinitis, osteoarthritis, idiopathic peripheral autonomic neuropathy, chronic urinary tract infections, vitamin D deficiency, morbid obesity, bed bound last admitted on 2016 for HCAP and CHF ). Acute hypoxia secondary to acute on chronic diastolic heart failure and COPD exacerbation. Patient was examined bedside and is requiring 10 L of oxygen. She was sent to [facility] [place] for physical therapy rehabilitation , patient has been coughing quite a bit of phlegm over the last few days and her oxygen dropped to low 80s on 4 L of oxygen. Patient also endorses sore throat associated with shortness of breath that started yesterday. Arteriogram today suggestive of some mild infiltrate and atelectasis in the posterior lung bases with slightly enlarged heart with changes consistent with some degree of pulmonary hypertension but no pulmonary embolism was seen. Previous Echocardiogram reveals EF of 55-60% with mild concentric left ventricular hypertrophy, severe pulmonary hypertension, mild mitral regurgitation, severe tricuspid regurgitation. Patient has been seen and followed by Dr. Arita from pulmonary medicine and Dr. Desir from cardiology. She is continued on IV Lasix, levofloxacin and IV steroids. 07/23: Patient has so much discomfort with sore throat, patient denies any dysphagia, she has very dry mouth, has been requesting mild sprays mainly to covered up the pain rather than to lubricate the oral cavity, patient still requires 10 L of O2 nasal cannula, patient is noncompliant to any previous use and recommendation to the use of CPAP machine, patient currently is on a pulse ox of on 90% at 10 L nasal cannula Echocardiogram performed showing EF 55-60%, borderline concentric LVH, severe pulmonary hypertension with right ventricular systolic pressure of 90, no pericardial effusion, moderate to severe tricuspid regurgitation 07/24, patient seems to be hyper active today and some agitation noted, patient has not slept for 5 days, she keeps complaining mucus plug in her throat and is difficult to expectorate, patient requires 10 L is a cannula, O2 sats low white 88% at nighttime mainly, patient cannot comply on CPAP or BiPAP treatments here , flutter valve initiated, sore throat is much better, oral mucosae is better looking than yesterday, no fevers, decreasing Solu-Medrol to 40 mg every 6 hours , melatonin 6 mg started at at bedtime secondary to refractory insomnia, patient has scheduled Xanax 0.5 mg 3 times a day along with Seroquel no changes made on those meds 07/25 patient was evaluated today she was noted to be resting comfortably in bed. She still complains of chest congestion and mucus that is difficult to expectorate. She continues on her liters of O2, although O2 was turned down to 8 L she was noted to be 92%. She is encouraged to use incentive spirometry and flutter valve. Repeat chest x-ray done and is pending. She continues on antibiotics and IV Solu-Medrol. Blood cultures are negative to date. Maintain current Lasix dose, admission weight 93.5 kg, today's weight 91 kg. 07/26: Patient is progressing well, hypoxemia is less, patient currently is between 4-5 L nasal cannula pulse ox between 95-96%, patient still has coarse cough, and sore throat, patient has oral yeast changes now in view at the vehicle mucosa, oral candidal nystatin would be provided, patient is pleased with her treatments here, currently on oral Lasix 40 mg twice a day, and Solu- Medrol 40 mg every 12 hours 07/27: Patient has been cleared by pulmonary medicine for discharge. O2 therapy is down to 4 L nasal cannula at her baseline. Patient continues to have cough. Potassium will be replaced. Steroids changed to prednisone and patient will be discharged to [facility] today in stable condition. Discharge diagnoses: 1. Acute respiratory insufficiency with chronic hypercarbic respiratory failure secondary to acute on chronic diastolic heart failure and COPD exacerbation and bronchitis. 2. Acute on chronic diastolic heart failure. 3. Severe pulmonary hypertsion secondary Morbid obesity with [place] noncomplicance to previous cpap/bipap chronically - continue Bipap in the night 4 severe tricuspid regurgitation, with pulmonary hypertension, right ventricle systolic pressure of 91 5. GERD. 6. Hypertension and hypertensive cardiovascular disease. 7. Hyperlipidemia. 8. Hypothyroidism. 9. Peripheral neuropathy. 10. Recurrent depression 11. Osteoarthritis with joint deformities including the right hand as well as bilateral lower extremity's. 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 12. Generalized anxiety disorder 13. ALLERGIC rhinitis. 14. Medical debility. Patient is bed bound 19. Oral oly 20. Completed Tamiflu, influenza negative Discharge plan: [facility] under the care of Dr. Elizabeth Impression and plan of care have been directed as dictated by the signing physician. Mary Souza nurse practitioner acting as scribe for signing physician. Patient Condition at Discharge: Good Plan - Discharge Summary Discharge Rx Participant: No New Discharge Prescriptions: New Fluconazole [Diflucan] 100 mg PO DAILY #14 tab guaiFENesin [Mucinex] 1,200 mg PO BID #20 tab.er.12h Nystatin 100,000 Unit/ml Susp [Mycostatin Oral Susp] 5 ml PO QID #28 dose predniSONE 0 mg PO DIRECTED #30 tab Furosemide [Lasix] 40 mg PO BID@0900,1600 tab Lidocaine Viscous 2% [Xylocaine Viscous] 5 ml MUCOUS MEM Q4H PRN ml PRN Reason: Sore Throat Continue amLODIPine [Norvasc] 5 mg PO DAILY Aspirin 81 mg PO DAILY Acetaminophen Tab [Tylenol] 500 mg PO Q6H PRN MDD 4000MG PER 24HR PRN Reason: Pain Or Fever > 100.5 Sodium Chloride [Saline Mist] 2 spray NASAL DIRECTED PRN PRN Reason: DRYNESS Ondansetron HCl [Zofran] 4 mg PO Q6H PRN PRN Reason: Nausea Polyethylene Glycol 3350 [Miralax] 17 gm PO HS Magnesium Hydroxide [Milk of Magnesia] 2,400 mg PO DAILY PRN PRN Reason: Constipation Ipratropium-Albuterol Nebulize [Duoneb 0.5 mg-3 mg/3 ml Soln] 3 ml INHALATION RT-QID Topiramate [Topamax] 50 mg PO BID Gabapentin [Neurontin] 200 mg PO BID DULoxetine HCL [Cymbalta] 60 mg PO BID Metoprolol Succinate [Toprol XL] 25 mg PO DAILY Cholecalciferol [Vitamin D3] 2,000 unit PO DAILY Omeprazole [PriLOSEC] 20 mg PO DAILY@0600 Loratadine [Claritin] 10 mg PO DAILY Lidocaine 5% Patch [Lidoderm 5% Patch] 1 patch TOPICAL Q12H PRN MDD 2 patches PRN Reason: joint pain Levothyroxine Sodium [Synthroid] 125 mcg PO DAILY@0600 Escitalopram [Lexapro] 5 - 10 mg PO DAILY Dimethicone/Zinc Oxide [Inzo Zinc Oxide Barrier Cream] 1 applic TOPICAL DIRECTED PRN PRN Reason: PREVENTION Vitamins A and D [Vitamin A and D] 1 applic TOPICAL Q12H Anti-Fungal Powder 1 applic TOPICAL BID Bismuth Subsalicylate [Pepto-Bismol] 524 mg PO Q4H PRN PRN Reason: Diarrhea/upset stomach Lidocaine Hcl Soln 2% 1 injection IM Q24H PRN PRN Reason: Pain Ipratropium-Albuterol Nebulize [Duoneb 0.5 mg-3 mg/3 ml Soln] 3 ml INHALATION RT-Q4H PRN PRN Reason: bronchodilator Sennosides-Docusate Sodium [Senokot-S] 2 tab PO BID Budesonide [Pulmicort] 1 mg INHALATION RT-BID QUEtiapine [SEROquel] 25 mg PO HS Naldemedine Tosylate [Symproic] 0.2 mg PO DAILY Vitamins A and D [Vitamin A and D] 1 applic TOPICAL DAILY PRN PRN Reason: barrier ALPRAZolam [Xanax] 0.25 mg PO TID #90 tab Hydrocodone/Acetaminophen [[place] 7.5-325] 1 tab PO Q6HR PRN #60 tab PRN Reason: Pain Hydrocodone/Acetaminophen [[place] 7.5-325] 1 tab PO BID #60 tab Levofloxacin [Levaquin] 500 mg PO DAILY #8 Discontinued Depo-Medrol Susp 80mg/Ml 1 injection IM Q24H PRN PRN Reason: left arm/shoulder Pain Oseltamivir [Tamiflu] 75 mg PO DAILY Furosemide [Lasix] 40 mg PO DAILY Discharge Medication List Acetaminophen Tab [Tylenol] 500 mg PO Q6H PRN MDD 4000MG PER 24HR 01/12/17 [ History] Aspirin 81 mg PO DAILY 01/12/17 [History] Cholecalciferol [Vitamin D3] 2,000 unit PO DAILY 01/12/17 [History] DULoxetine HCL [Cymbalta] 60 mg PO BID 01/12/17 [History] Dimethicone/Zinc Oxide [Inzo Zinc Oxide Barrier Cream] 1 applic TOPICAL DIRECTED PRN 01/12/17 [History] Escitalopram [Lexapro] 5 - 10 mg PO DAILY 01/12/17 [History] Gabapentin [Neurontin] 200 mg PO BID 01/12/17 [History] Ipratropium-Albuterol Nebulize [Duoneb 0.5 mg-3 mg/3 ml Soln] 3 ml INHALATION RT -QID 01/12/17 [History] Levothyroxine Sodium [Synthroid] 125 mcg PO DAILY@0600 01/12/17 [History] Lidocaine 5% Patch [Lidoderm 5% Patch] 1 patch TOPICAL Q12H PRN MDD 2 patches [History] Loratadine [Claritin] 10 mg PO DAILY 01/12/17 [History] Magnesium Hydroxide [Milk of Magnesia] 2,400 mg PO DAILY PRN 01/12/17 [History] Metoprolol Succinate [Toprol XL] 25 mg PO DAILY 01/12/17 [History] Omeprazole [PriLOSEC] 20 mg PO DAILY@0600 01/12/17 [History] Ondansetron HCl [Zofran] 4 mg PO Q6H PRN 01/12/17 [History] Polyethylene Glycol 3350 [Miralax] 17 gm PO HS 01/12/17 [History] Sodium Chloride [Saline Mist] 2 spray NASAL DIRECTED PRN 01/12/17 [History] Topiramate [Topamax] 50 mg PO BID 01/12/17 [History] amLODIPine [Norvasc] 5 mg PO DAILY 01/12/17 [History] Anti-Fungal Powder 1 applic TOPICAL BID 07/21/17 [History] Bismuth Subsalicylate [Pepto-Bismol] 524 mg PO Q4H PRN 07/21/17 [History] Budesonide [Pulmicort] 1 mg INHALATION RT-BID 07/21/17 [History] Ipratropium-Albuterol Nebulize [Duoneb 0.5 mg-3 mg/3 ml Soln] 3 ml INHALATION RT -Q4H PRN 07/21/17 [History] Lidocaine Hcl Soln 2% 1 injection IM Q24H PRN 07/21/17 [History] Naldemedine Tosylate [Symproic] 0.2 mg PO DAILY 07/21/17 [History] QUEtiapine [SEROquel] 25 mg PO HS 07/21/17 [History] Sennosides-Docusate Sodium [Senokot-S] 2 tab PO BID 07/21/17 [History] Vitamins A and D [Vitamin A and D] 1 applic TOPICAL DAILY PRN 07/21/17 [History] Vitamins A and D [Vitamin A and D] 1 applic TOPICAL Q12H 07/21/17 [History] ALPRAZolam [Xanax] 0.25 mg PO TID #90 tab 07/27/17 [Rx] Fluconazole [Diflucan] 100 mg PO DAILY #14 tab 07/27/17 [Rx] Furosemide [Lasix] 40 mg PO BID@0900,1600 tab 07/27/17 [Rx] Hydrocodone/Acetaminophen [[place] 7.5-325] 1 tab PO BID #60 tab 07/27/17 [Rx] Hydrocodone/Acetaminophen [[place] 7.5-325] 1 tab PO Q6HR PRN #60 tab 07/27/17 [Rx ] Levofloxacin [Levaquin] 500 mg PO DAILY #8 07/27/17 [Rx] Lidocaine Viscous 2% [Xylocaine Viscous] 5 ml MUCOUS MEM Q4H PRN ml 07/27/17 [ Rx] Nystatin 100,000 Unit/ml Susp [Mycostatin Oral Susp] 5 ml PO QID #28 dose [Rx] guaiFENesin [Mucinex] 1,200 mg PO BID #20 tab.er.12h 07/27/17 [Rx] predniSONE 0 mg PO DIRECTED #30 tab 07/27/17 [Rx] Follow up Appointment(s)/Referral(s): Gracia Elizabeth MD [Primary Care Provider] - 1 Week (at [facility]) [facility] on [facility], [NON-STAFF] - As Needed Christopher Russ DO [Doctor of Osteopathic Medicine] - 2 Weeks (at [facility]) Patient Instructions/Handouts: COPD (Chronic Obstructive Pulmonary Disease) (DC ) Activity/Diet/Wound Care/Special Instructions: Heart failure booklet given. Oxygen via nasal cannula to keep sats greater than 90% Activity as tolerated, change positions every 2 hours while awake. Up with assist. Cardiac diet.
[2017-07-27 16:40] VITALS: PULSE 102; BMI 32.9
[2017-07-29] MEDS ORDERED: ESCITALOPRAM 5 MG TAB PO SCH (09:00)
== END 2017-07-27 15:47 | DRG 291 ==
LOC: EC 11:24 → 4MS4W 15:15
PROVIDERS: ADMIT Internal Medicine; ATTEND Internal Medicine
DX: I11.0 Hypertensive heart disease with heart failure (principal); J96.01 Acute respiratory failure with hypoxia; J18.9 Pneumonia, unspecified organism; J96.12 Chronic respiratory failure with hypercapnia; B37.0 Candidal stomatitis; I27.20 Pulmonary hypertension, unspecified; G82.20 Paraplegia, unspecified; F33.9 Major depressive disorder, recurrent, unspecified; J44.0 Chronic obstructive pulmonary disease with (acute) lower respiratory infection; J44.1 Chronic obstructive pulmonary disease with (acute) exacerbation; Z99.81 Dependence on supplemental oxygen; I08.1 Rheumatic disorders of both mitral and tricuspid valves; G90.09 Other idiopathic peripheral autonomic neuropathy; E66.01 Morbid (severe) obesity due to excess calories; I50.33 Acute on chronic diastolic (congestive) heart failure; D64.9 Anemia, unspecified; G47.33 Obstructive sleep apnea (adult) (pediatric); J40 Bronchitis, not specified as acute or chronic; G47.00 Insomnia, unspecified; K21.9 Gastro-esophageal reflux disease without esophagitis; E78.5 Hyperlipidemia, unspecified; E03.9 Hypothyroidism, unspecified; I49.3 Ventricular premature depolarization; M19.041 Primary osteoarthritis, right hand; M19.031 Primary osteoarthritis, right wrist; M19.072 Primary osteoarthritis, left ankle and foot; M19.071 Primary osteoarthritis, right ankle and foot; F41.1 Generalized anxiety disorder; G89.29 Other chronic pain; E55.9 Vitamin D deficiency, unspecified; M21.952 Unspecified acquired deformity of left thigh; M21.951 Unspecified acquired deformity of right thigh; M21.922 Unspecified acquired deformity of left upper arm; M21.921 Unspecified acquired deformity of right upper arm; R32 Unspecified urinary incontinence; Z91.19 Patient's noncompliance with other medical treatment and regimen; Z68.33 Body mass index [BMI] 33.0-33.9, adult; Z79.82 Long term (current) use of aspirin; Z79.51 Long term (current) use of inhaled steroids; Z79.899 Other long term (current) drug therapy; Z74.01 Bed confinement status; Z87.440 Personal history of urinary (tract) infections; Z96.642 Presence of left artificial hip joint; Z87.891 Personal history of nicotine dependence; Z86.19 Personal history of other infectious and parasitic diseases; Z90.49 Acquired absence of other specified parts of digestive tract; Z88.8 Allergy status to other drugs, medicaments and biological substances
CPT/HCPCS: 36415; 71045; 71275; 80048; 80053; 82550; 82553; 83605; 83735; 83880; 84484; 85025; 85610; 85730; 87040; 87070; 87205; 87502; 93005; 93306; 94640; 94667; 94760; 96374; 99285

== ENCOUNTER 2017-08-03 13:32 | Inpatient (IN) | payer MEDICARE, OTHER ==
[2017-08-03] MEDS ORDERED: ALBUTEROL NEBULIZED 2.5 MG/3 ML INHALATION STA (14:13)
[2017-08-03] MEDS ORDERED: cefTAZidime 2 GM in SODIUM CHLORIDE 0.9% 50 ML IVPB STA (14:13)
[2017-08-03] MEDS ORDERED: methylPREDNISolone SOD SUCCI 125 MG/2 ML VIAL IV STA (14:13)
[2017-08-03 15:02] LABS: Basophils % (A) 0 %; Eosinophils # (A) 0.2 k/uL (0-0.7); Eosinophils % (A) 1 %; HCT 42.7 % (34.0-46.0); HGB 13.5 gm/dL (11.4-16.0); Hypochromasia Slight; Lymphocytes # (A) 1.8 k/uL (1.0-4.8); Lymphocytes % (A) 9 %; MCH 27.8 pg (25.0-35.0); MCHC 31.5 g/dL (31.0-37.0); MCV 88.2 fL (80.0-100.0); Mean Platelet Volume 6.7; Monocytes % (A) 5 %; Neutrophils # (A) 16.8 k/uL (1.3-7.7); Neutrophils % (A) 84 %; Platelet Count 358 k/uL (150-450); RBC 4.84 m/uL (3.80-5.40); RDW 14.9 % (11.5-15.5); WBC 20.1 k/uL (3.8-10.6)
[2017-08-03 15:03] LABS: Albumin 3.7 g/dL (3.5-5.0); Calcium 9.2 mg/dL (8.4-10.2); Total Bilirubin 0.7 mg/dL (0.2-1.3); Total Protein 6.5 g/dL (6.3-8.2)
[2017-08-03 15:07] LABS: Prothrombin Time 10.2 sec (9.0-12.0)
[2017-08-03 15:18] LABS: Creatine Kinase <20 U/L (30-135)
--- NOTE | 2017-08-03 15:18 | XR ---
EXAMINATION TYPE: XR chest 2V DATE OF EXAM: 08/03/2017 COMPARISON: Prior chest x-ray 07/25/2017 HISTORY: Difficulty breathing, dyspnea TECHNIQUE: Frontal and lateral views of the chest are obtained. FINDINGS: The patient is rotated and there are overlying cardiac leads. Lung volumes are low. The aor ta is dense. There is no focal air space opacity, pleural effusion, or pneumothorax seen. The cardia c silhouette size is stable. Left shoulder shows marked arthropathy change as on prior exam. IMPRESSION: Suspect borderline cardiomegaly. Mediastinum is again widened, correlate for pulmonary a rtery hypertension. Rotated exam.
[2017-08-03 15:27] LABS: Potassium 2.9 mmol/L (3.5-5.1)
[2017-08-03] MEDS ORDERED: POTASSIUM BICARBONATE/CIT AC 20 MEQ TABLET.EFF PO ONE (15:29)
[2017-08-03 15:31] LABS: Creatine Kinase MB 0.9 ng/mL (0.0-2.4)
[2017-08-03] MEDS ORDERED: PIPERACILLIN-TAZOBACTAM 3.375 GM in DEXTROSE/WATER 1 50ML.BAG IVPB STA (18:02)
--- NOTE | 2017-08-03 18:02 | ED ---
SOB HPI - General Chief Complaint: Shortness of Breath Stated Complaint: SOB Time Seen by Provider: 08/03/17 14:06 Source: patient, EMS Mode of arrival: EMS Limitations: no limitations - History of Present Illness Initial Comments: 77 years old female was just discharged from the hospital not too long ago, presented with a shortness of breath she does wear 4 L of oxygen at home but term her oxygen saturation was 87% she has a history of atrial fibrillation and asthma Dante artery disease CHF and COPD. Denies any headache no neck stiffness stiffness no signs of meningitis denies any abdominal pain no frequency urgency dysuria no symptoms of TIA or CVA - Related Data Home Medications Medication Instructions Recorded Confirmed Acetaminophen Tab [Tylenol] 500 mg PO Q6H PRN MDD 4000MG PER 01/12/17 08/03/17 24HR Aspirin 81 mg PO DAILY 01/12/17 08/03/17 Cholecalciferol [Vitamin D3] 2,000 unit PO DAILY 01/12/17 08/03/17 DULoxetine HCL [Cymbalta] 60 mg PO BID 01/12/17 08/03/17 Escitalopram [Lexapro] 10 mg PO DAILY 01/12/17 08/03/17 Gabapentin [Neurontin] 200 mg PO BID 01/12/17 08/03/17 Ipratropium-Albuterol Nebulize 3 ml INHALATION RT-Q4H PRN 01/12/17 08/03/17 [Duoneb 0.5 mg-3 mg/3 ml Soln] Levothyroxine Sodium [Synthroid] 125 mcg PO DAILY@0600 01/12/17 08/03/17 Lidocaine 5% Patch [Lidoderm 5% 1 patch TOPICAL Q12H PRN MDD 2 01/12/17 08/03/17 Patch] patches Loratadine [Claritin] 10 mg PO DAILY 01/12/17 08/03/17 Magnesium Hydroxide [Milk of 2,400 mg PO DAILY PRN 01/12/17 08/03/17 Magnesia] Metoprolol Succinate [Toprol XL] 25 mg PO DAILY 01/12/17 08/03/17 Omeprazole [PriLOSEC] 20 mg PO DAILY@0600 01/12/17 08/03/17 Ondansetron HCl [Zofran] 4 mg PO Q6H PRN 01/12/17 08/03/17 Polyethylene Glycol 3350 [Miralax] 17 gm PO HS 01/12/17 08/03/17 Sodium Chloride [Saline Mist] 2 spray NASAL DAILY PRN 01/12/17 08/03/17 Topiramate [Topamax] 50 mg PO BID 01/12/17 08/03/17 amLODIPine [Norvasc] 5 mg PO DAILY 01/12/17 08/03/17 Bismuth Subsalicylate 524 mg PO Q4H PRN 07/21/17 08/03/17 [Pepto-Bismol] Ipratropium-Albuterol Nebulize 3 ml INHALATION RT-Q4H 07/21/17 08/03/17 [Duoneb 0.5 mg-3 mg/3 ml Soln] Naldemedine Tosylate [Symproic] 0.2 mg PO DAILY 07/21/17 08/03/17 QUEtiapine [SEROquel] 25 mg PO HS 07/21/17 08/03/17 Sennosides-Docusate Sodium 2 tab PO BID 07/21/17 08/03/17 [Senokot-S] Budesonide [Pulmicort] 1 mg INHALATION RT-BID 08/03/17 08/03/17 Escitalopram [Lexapro] 5 mg PO DAILY 08/03/17 08/03/17 Fluconazole [Diflucan] 100 mg PO DAILY 08/03/17 08/03/17 Melatonin 10 mg PO HS 08/03/17 08/03/17 Nystatin 100,000 Unit/ml Susp 5,000,000 units PO DIRECTED 08/03/17 08/03/17 [Mycostatin Oral Susp] acetaZOLAMIDE [Diamox] 250 mg PO DAILY 08/03/17 08/03/17 predniSONE See Taper PO DIRECTED 08/03/17 08/03/17 Previous Rx's Medication Instructions Recorded ALPRAZolam [Xanax] 0.25 mg PO TID #90 tab 07/27/17 Furosemide [Lasix] 40 mg PO BID@0900,1600 tab 07/27/17 Hydrocodone/Acetaminophen [Newton 1 tab PO BID #60 tab 07/27/17 7.5-325] Hydrocodone/Acetaminophen [Newton 1 tab PO Q6HR PRN #60 tab 07/27/17 7.5-325] Levofloxacin [Levaquin] 500 mg PO DAILY #8 07/27/17 Lidocaine Viscous 2% [Xylocaine 5 ml MUCOUS MEM Q4H PRN ml 07/27/17 Viscous] guaiFENesin [Mucinex] 1,200 mg PO BID #20 tab.er.12h 07/27/17 Allergies Allergy/AdvReac Type Severity Reaction Status Date / Time metronidazole [From Flagyl] Allergy Unknown Verified 08/03/17 14:13 Review of Systems ROS Statement: Those systems with pertinent positive or pertinent negative responses have been documented in the HPI. ROS Other: All systems not noted in ROS Statement are negative. 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 History of Any Multi-Drug Resistant Organisms: Unobtainable Date of last positivie culture/infection: 01/12/17 MDRO Source:: Urine Past Surgical History: Appendectomy, Orthopedic Surgery Additional Past Surgical History / Comment(s): PEG tube and trach placement with removal, left hip arthroplasty in 1995, insertion and removal of a tracheostomy tube. Past Psychological History: Anxiety, Depression Smoking Status: Former smoker Past Alcohol Use History: None Reported Past Drug Use History: None Reported - Past Family History Father Additional Family Medical History / Comment(s): at age 58 from a fall and head injury. Mother Additional Family Medical History / Comment(s): Mother at age 70 from a CVA. Brother(s) Additional Family Medical History / Comment(s): Patient has one brother with no major medical problems. Sister(s) Additional Family Medical History / Comment(s): Patient has one sister with no major medical problems. Daughter(s) Additional Family Medical History / Comment(s): Patient has 2 daughters no major medical problems. General Exam - General Exam Comments Initial Comments: General: The patient is awake and alert, in mild distress, and does not appear acutely ill. ACS is 15 Skin: Skin is warm and dry and no rashes or lesions are noted. Eye: Pupils are equal, round and reactive to light, extra-ocular movements are intact; there is normal conjunctiva bilaterally. Ears, nose, mouth and throat: There are moist mucous membranes and no oral lesions. Neck: The neck is supple, there is no tenderness Cardiovascular: There is a regular rate and rhythm. No murmur, rub or gallop is appreciated. Respiratory: To auscultation bilateral, decreased air exchange crackles at the bases bilaterally Gastrointestinal: Soft, non-distended, non-tender abdomen without masses or organomegaly noted. There is no rebound or guarding present. Bowel sounds are unremarkable. Back: There is no tenderness to palpation in the midline. There is no obvious deformity. Musculoskeletal: Normal ROM, no tenderness, There is no pedal edema. There is no calf tenderness or swelling. No cords were appreciated. Neurological: CN II-XII intact, Cranial nerves III through XII are intact. There are no obvious motor or sensory deficits. Coordination appears grossly intact. Speech is normal. Psychiatric: Cooperative, appropriate mood & affect, normal judgment. Limitations: no limitations Course Vital Signs 08/03/17 08/03/17 08/03/17 13:34 14:39 15:18 Temperature 98.2 F Pulse Rate 92 91 92 Respiratory 22 20 Rate Blood Pressure 75/63 112/59 O2 Sat by Pulse 94 L 92 L Oximetry 08/03/17 08/03/17 08/03/17 15:29 16:08 17:22 Temperature Pulse Rate 93 97 94 Respiratory 18 19 Rate Blood Pressure 148/95 164/63 O2 Sat by Pulse 93 L 91 L Oximetry EKG is a sinus rhythm with a premature atrial complexes ventricular rate is 93 DE interval is 184, jewish is 82 QT/QTc is 354/440 some artifacts in this EKG making it hard to interpret review of this EKG does not reveal any ST elevation or ST depression Patient is reassessed and labs are reviewed imaging is reviewed as well findings are discussed with the patient she be admitted to Dr. Knight's service white count is quite elevated 20 she be covered with broad-spectrum antibiotics Zosyn and Vanco hyperkalemia was corrected with the 40 mEq potassium by mouth troponin is elevated she has a history of congestive heart failure's and MRIs cardiology be consulted chest x-ray shows cardiomegaly will allow consult pulmonary medicine Dr. Mulligan for chronic COPD and shortness of breath reasons, I reviewed her home meds she is not on any of the blood thinners, she be heparinized considering her elevated troponin Medical Decision Making - Lab Data Result diagrams: 08/03/17 14:40 08/03/17 14:40 Lab Results 08/03/17 08/03/17 08/03/17 Range/Units 14:40 14:40 14:40 WBC 20.1 H (3.8-10.6) k/uL RBC 4.84 (3.80-5.40) m/uL Hgb 13.5 (11.4-16.0) gm/dL Hct 42.7 (34.0-46.0) % MCV 88.2 (80.0-100.0) fL MCH 27.8 (25.0-35.0) pg MCHC 31.5 (31.0-37.0) g/dL RDW 14.9 (11.5-15.5) % Plt Count 358 (150-450) k/uL Neutrophils % 84 % Lymphocytes % 9 % Monocytes % 5 % Eosinophils % 1 % Basophils % 0 % Neutrophils # 16.8 H (1.3-7.7) k/uL Lymphocytes # 1.8 (1.0-4.8) k/uL Monocytes # 1.0 (0-1.0) k/uL Eosinophils # 0.2 (0-0.7) k/uL Basophils # 0.0 (0-0.2) k/uL Hypochromasia Slight PT 10.2 (9.0-12.0) sec INR 1.0 (<1.2) APTT 21.0 L (22.0-30.0) sec Sodium 135 L (137-145) mmol/L Potassium 2.9 L* (3.5-5.1) mmol/L Chloride 88 L (98-107) mmol/L Carbon Dioxide 34 H (22-30) mmol/L Anion Gap 13 mmol/L BUN 34 H (7-17) mg/dL Creatinine 1.09 H (0.52-1.04) mg/dL Est GFR (CKD-EPI)AfAm 57 (>60 ml/min/1.73 sqM) Est GFR (CKD-EPI)NonAf 49 (>60 ml/min/1.73 sqM) Glucose 104 H (74-99) mg/dL Calcium 9.2 (8.4-10.2) mg/dL Total Bilirubin 0.7 (0.2-1.3) mg/dL AST 17 (14-36) U/L ALT 14 (9-52) U/L Alkaline Phosphatase 49 (38-126) U/L Total Creatine Kinase (30-135) U/L CK-MB (CK-2) (0.0-2.4) ng/mL CK-MB (CK-2) Rel Index Troponin I (0.000-0.034) ng/mL Total Protein 6.5 (6.3-8.2) g/dL Albumin 3.7 (3.5-5.0) g/dL 08/03/17 Range/Units 14:40 WBC (3.8-10.6) k/uL RBC (3.80-5.40) m/uL Hgb (11.4-16.0) gm/dL Hct (34.0-46.0) % MCV (80.0-100.0) fL MCH (25.0-35.0) pg MCHC (31.0-37.0) g/dL RDW (11.5-15.5) % Plt Count (150-450) k/uL Neutrophils % % Lymphocytes % % Monocytes % % Eosinophils % % Basophils % % Neutrophils # (1.3-7.7) k/uL Lymphocytes # (1.0-4.8) k/uL Monocytes # (0-1.0) k/uL Eosinophils # (0-0.7) k/uL Basophils # (0-0.2) k/uL Hypochromasia PT (9.0-12.0) sec INR (<1.2) APTT (22.0-30.0) sec Sodium (137-145) mmol/L Potassium (3.5-5.1) mmol/L Chloride (98-107) mmol/L Carbon Dioxide (22-30) mmol/L Anion Gap mmol/L BUN (7-17) mg/dL Creatinine (0.52-1.04) mg/dL Est GFR (CKD-EPI)AfAm (>60 ml/min/1.73 sqM) Est GFR (CKD-EPI)NonAf (>60 ml/min/1.73 sqM) Glucose (74-99) mg/dL Calcium (8.4-10.2) mg/dL Total Bilirubin (0.2-1.3) mg/dL AST (14-36) U/L ALT (9-52) U/L Alkaline Phosphatase (38-126) U/L Total Creatine Kinase <20 L (30-135) U/L CK-MB (CK-2) 0.9 (0.0-2.4) ng/mL CK-MB (CK-2) Rel Index Troponin I 0.040 H* (0.000-0.034) ng/mL Total Protein (6.3-8.2) g/dL Albumin (3.5-5.0) g/dL Disposition Clinical Impression: Sepsis, Hypoxia, Hypotension, Elevated troponin Disposition: ADMITTED IP TO THIS HOSP Condition: Good Referrals: Gracia lEizabeth MD [Primary Care Provider] - 1-2 days
[2017-08-03] MEDS ORDERED: HEPARIN SODIUM,PORCINE 5,000 UNIT/ML 1 ML VIAL IV ONE (18:13)
[2017-08-03] MEDS ORDERED: NITROGLYCERIN SL TABS 0.4 MG TAB SUBLINGUAL PRN (18:13)
[2017-08-03] MEDS ORDERED: MORPHINE SULFATE/PF 10MG/10ML VL IVP PRN (18:13)
[2017-08-03] MEDS ORDERED: HEPARIN SOD,PORK IN 0.45% NACL 25,000 UNIT in 0.45% NACL 1 500ML.BAG IV SCH (18:15)
[2017-08-03] MEDS ORDERED: SODIUM CHLORIDE 0.65% NASAL SPRAY 44 ML BTL NASAL PRN (18:18)
[2017-08-03] MEDS ORDERED: ONDANSETRON 4 MG TAB PO PRN (18:18)
[2017-08-03] MEDS ORDERED: HYDROcodone/APAP 7.5-325MG 1 EACH TAB PO PRN (18:18)
[2017-08-03] MEDS ORDERED: LIDOCAINE 5% PATCH TOPICAL PRN (18:18)
[2017-08-03] MEDS ORDERED: BISMUTH SUBSALICYLATE 4,192 MG/240 ML BOTTLE PO PRN (18:18)
[2017-08-03] MEDS ORDERED: IPRATROPIUM-ALBUTEROL 3 ML NEB INHALATION PRN (18:18)
[2017-08-03] MEDS ORDERED: MAGNESIUM HYDROXIDE 2,400 MG/10 ML CUP PO PRN (18:18)
[2017-08-03] MEDS ORDERED: VANCOMYCIN 1,500 MG in SODIUM CHLORIDE 0.9% 250 ML IVPB ONE (18:30)
[2017-08-03] MEDS ORDERED: IPRATROPIUM-ALBUTEROL 3 ML NEB INHALATION SCH (20:00)
[2017-08-03 20:51] LABS: Creatine Kinase <20 U/L (30-135)
[2017-08-03 21:04] LABS: Creatine Kinase MB 0.7 ng/mL (0.0-2.4); Troponin I 0.033 ng/mL (0.000-0.034)
[2017-08-03] MEDS: BUDESONIDE 1 MG/2 ML NEBU INHALATION SCH (22:02)
[2017-08-03 22:08] LABS: Potassium 4.2 mmol/L (3.5-5.1)
[2017-08-03] MEDS: NYSTATIN 100,000 UNIT/ML SUSP 500,000 UNIT/5 ML CUP PO SCH ×2 (22:13→22:26)
[2017-08-03] MEDS: guaiFENesin 600 MG TABLET.ER PO SCH (22:16)
[2017-08-03] MEDS: GABAPENTIN 100 MG CAP PO SCH (22:16)
[2017-08-03] MEDS: DULoxetine HCL 60 MG CAPSULE.DR PO SCH (22:16)
[2017-08-03] MEDS: POLYETHYLENE GLYCOL 3350 17 GM POWD.PACK PO SCH (22:17)
[2017-08-03] MEDS: MELATONIN 5 MG TABLET PO SCH (22:17)
[2017-08-03] MEDS: QUEtiapine 25 MG TAB PO SCH (22:17)
[2017-08-03] MEDS: SENNOSIDES-DOCUSATE SODIUM 1 EACH TAB PO SCH (22:18)
[2017-08-03] MEDS: TOPIRAMATE 25 MG TAB PO SCH (22:18)
[2017-08-03] MEDS: HYDROcodone/APAP 7.5-325MG 1 EACH TAB PO SCH (22:22)
[2017-08-03] MEDS: ALPRAZolam 0.25 MG TAB PO SCH (22:22)
[2017-08-04] MEDS: PIPERACILLIN-TAZOBACTAM 3.375 GM in DEXTROSE/WATER 1 50ML.BAG IVPB SCH ×4 (00:54→23:16)
[2017-08-04 02:08] LABS: Creatine Kinase <20 U/L (30-135)
[2017-08-04 02:22] LABS: Creatine Kinase MB 0.8 ng/mL (0.0-2.4); Troponin I 0.032 ng/mL (0.000-0.034)
[2017-08-04] MEDS: LEVOTHYROXINE 125 MCG TAB PO SCH (05:55)
[2017-08-04] MEDS: PANTOPRAZOLE 40 MG TABLET PO SCH (05:55)
[2017-08-04] MEDS: VANCOMYCIN 1,500 MG in SODIUM CHLORIDE 0.9% 250 ML IVPB SCH (05:55)
[2017-08-04 06:37] LABS: Basophils % (A) 0 %; Eosinophils % (A) 0 %; HGB 12.1 gm/dL (11.4-16.0); Lymphocytes # (A) 0.5 k/uL (1.0-4.8); Lymphocytes % (A) 5 %; MCH 28.9 pg (25.0-35.0); MCHC 33.7 g/dL (31.0-37.0); MCV 85.7 fL (80.0-100.0); Mean Platelet Volume 8.1; Monocytes # (A) 0.5 k/uL (0-1.0); Monocytes % (A) 5 %; Neutrophils # (A) 10.8 k/uL (1.3-7.7); Neutrophils % (A) 90 %; Platelet Count 245 k/uL (150-450); WBC 11.9 k/uL (3.8-10.6)
[2017-08-04] MEDS: BUDESONIDE 1 MG/2 ML NEBU INHALATION SCH ×2 (08:05→19:17)
[2017-08-04] MEDS: IPRATROPIUM-ALBUTEROL 3 ML NEB INHALATION SCH ×4 (08:05→19:17)
[2017-08-04 08:13] LABS: Calcium 8.6 mg/dL (8.4-10.2); Potassium 3.4 mmol/L (3.5-5.1)
[2017-08-04] MEDS ORDERED: FUROSEMIDE 40 MG TAB PO SCH (09:00)
[2017-08-04] MEDS ORDERED: ASPIRIN 325 MG TAB PO SCH (09:00)
[2017-08-04] MEDS ORDERED: POTASSIUM CHLORIDE ER 20 MEQ TAB.ER PO STA (09:27)
[2017-08-04 10:31] LABS: ABG HCO3 37 mmol/L (21-25); ABG PCO2 63 mmHg (35-45); ABG PH 7.37 (7.35-7.45); ABG PO2 114 mmHg (83-108); ABG TCO2 38 mmol/L (19-24)
[2017-08-04] MEDS: ALPRAZolam 0.25 MG TAB PO SCH ×3 (10:51→22:56)
[2017-08-04] MEDS: DULoxetine HCL 60 MG CAPSULE.DR PO SCH ×2 (10:52→23:00)
[2017-08-04] MEDS: GABAPENTIN 100 MG CAP PO SCH ×2 (10:56→23:00)
[2017-08-04] MEDS: guaiFENesin 600 MG TABLET.ER PO SCH ×2 (10:57→23:01)
[2017-08-04] MEDS: HYDROcodone/APAP 7.5-325MG 1 EACH TAB PO SCH ×2 (10:59→22:56)
[2017-08-04] MEDS: predniSONE 20 MG TAB PO SCH (11:00)
[2017-08-04] MEDS: SENNOSIDES-DOCUSATE SODIUM 1 EACH TAB PO SCH ×2 (11:01→22:57)
[2017-08-04] MEDS: FUROSEMIDE 10 MG/ML 4 ML VIAL IV SCH ×2 (11:15→23:03)
[2017-08-04 11:31] LABS: Glucose,Whole Blood 156 mg/dL (75-99)
[2017-08-04] MEDS: acetaZOLAMIDE 250 MG TAB PO SCH (11:38)
[2017-08-04] MEDS: amLODIPine 5 MG TAB PO SCH (11:39)
[2017-08-04] MEDS: CHOLECALCIFEROL 1,000 UNIT TAB PO SCH (11:39)
[2017-08-04] MEDS: ASPIRIN 81 MG PO SCH (11:39)
[2017-08-04] MEDS: ESCITALOPRAM 10 MG TAB PO SCH (11:40)
[2017-08-04] MEDS: FLUCONAZOLE 100 MG TAB PO SCH (11:40)
[2017-08-04] MEDS: ESCITALOPRAM 5 MG TAB PO SCH (11:40)
[2017-08-04] MEDS: METOPROLOL SUCCINATE (ER) 25 MG TAB.ER.24H PO SCH (11:41)
[2017-08-04] MEDS: LORATADINE 10 MG TAB PO SCH (11:41)
[2017-08-04] MEDS: TOPIRAMATE 25 MG TAB PO SCH ×2 (11:42→22:59)
--- NOTE | 2017-08-04 12:05 | P.HPIM ---
History of Present Illness H&P Date: 08/04/17 77-year-old female patient of Dr. Elizabeth currently residing at [facility] with past medical history COPD on 4 L Oxygen , hypertension, obstructive sleep apnea on BiPAP at nighttime, chronic pain, gastric esophageal reflux disease, hypothyroidism, ALLERGIC rhinitis, osteoarthritis, idiopathic peripheral autonomic neuropathy, chronic urinary tract infections, vitamin D deficiency, morbid obesity, bed bound forthe past 13 years, h/o prolonged intubation leading to tracheostomy which was finally removed, has been bedbound ever seen. Patient was just discharged on 07/27 to [facility] after treating her for acute hypoxic respiratory failure from bilateral lower lobe pneumonia with accompanying of tracheobronchitis for COPD exacerbation. Patient was also treated for acute diastolic heart failure during that admission. On discharge patient was back on her baseline of 4 L. According to the daughter patient was gradually uptitrated on her oxygen in the last few days. She was coughing up since discharge and has not gotten better since discharge. Patient endorses chills denies fever. She does feel short of breath and productive cough with greenish in color. Patient denies any history of DVT or pulmonary embolism in the past. She appears to be mentating well. Currently requiring 10 L of high flow on the oxygen. Vitals otherwise is stable with blood pressure 114/55, afebrile tachypneic to 20. Labs suggestive a leukocytosis of 20, d-dimer was normal. ABG was conducted this morning suggested a CO2 of 63 and pO2 114 at FiO2 of 60%. Influenza was negative Review of Systems Constitutional: Endorses chills, Denies fever, endorses lethargy, endorses malaise, endorses poor appetite, endorses weakness, Denies weight loss Eyes: denies decreased vision, denies diplopia, denies discharge, denies pain Ears: deny: decreased hearing Ears, nose, mouth and throat: Denies dental pain, Denies headache, Denies nasal discharge, Denies nose pain Cardiovascular: Denies chest pain, Denies edema, Denies high blood pressure, Denies irregular heart beat, Denies palpitations, Denies paroxysmal nocturnal dyspnea, Denies rapid heart beat, Denies shortness of breath Respiratory: Endorses congestion, cough with sputum production, dyspnea, or home oxygen, wheezing Gastrointestinal: Denies abdominal pain, Denies change in bowel habits, Denies coffee ground emesis, Denies early satiety, Denies excessive gas, Denies heartburn, Denies hematemesis, Denies hematochezia, endorses loss of appetite, Denies nausea, Denies vomiting Genitourinary: Denies dysuria, Denies flank pain, Denies kidney stones, Denies menorrhagia, Denies urgency, Denies urinary frequency Musculoskeletal: Bedbound with contractures, with limitation of motion, Denies morning stiffness, endorses muscle cramps Integumentary: Denies rash, Denies wounds, Denies brittle nails, Denies change in hair/nails, Denies darkening of skin Neurological: Denies change in speech, Denies double vision. Denies loss of vision, Denies motor disturbance, Denies numbness, Denies paralysis, Denies paresthesias, Denies seizures Psychiatric: Denies anxiety, Denies depression Endocrine: Denies excessive sweating, Denies excessive thirst, Denies high blood sugars, Denies palpitations Hematologic/Lymphatic: Denies easy bruising, Denies lymphadenopathy Past Medical History Past Medical History: Heart Failure, COPD, GERD/Reflux, Hyperlipidemia, Hypertension, Musculoskeletal Disorder, Neurologic Disorder, Osteoarthritis (OA) , Sleep Apnea/CPAP/BIPAP, Thyroid Disorder Additional Past Medical History / Comment(s): COPD, hypertension, obstructive sleep apnea on BiPAP at nighttime, chronic pain, gastric esophageal reflux disease, hypothyroidism, ALLERGIC rhinitis, osteoarthritis, idiopathic peripheral autonomic neuropathy, 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 History of Any Multi-Drug Resistant Organisms: VRE Date of last positivie culture/infection: 01/12/17 MDRO Source:: Urine Past Surgical History: Appendectomy, Orthopedic Surgery Additional Past Surgical History / Comment(s): PEG tube and trach placement with removal, left hip arthroplasty in 1995, insertion and removal of a tracheostomy tube. Past Psychological History: Anxiety, Depression Smoking Status: Former smoker Past Alcohol Use History: None Reported Additional Past Alcohol Use History / Comment(s): Patient was a smoker 3 packs per day for 38 years and quit in 1983. She has had alcohol use in the past. 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 Past Drug Use History: None Reported - Past Family History Father Additional Family Medical History / Comment(s): at age 58 from a fall and head injury. Mother Family Medical History: CVA/TIA Additional Family Medical History / Comment(s): Mother at age 70 from a CVA. Brother(s) Additional Family Medical History / Comment(s): Patient has one brother with no major medical problems. Sister(s) Additional Family Medical History / Comment(s): Patient has one sister with no major medical problems. Daughter(s) Additional Family Medical History / Comment(s): Patient has 2 daughters no major medical problems. Medications and Allergies Home Medications Medication Instructions Recorded Confirmed Type Acetaminophen Tab [Tylenol] 500 mg PO Q6H PRN MDD 4000MG PER 01/12/17 08/03/17 History 24HR Aspirin 81 mg PO DAILY 01/12/17 08/03/17 History Cholecalciferol [Vitamin D3] 2,000 unit PO DAILY 01/12/17 08/03/17 History DULoxetine HCL [Cymbalta] 60 mg PO BID 01/12/17 08/03/17 History Escitalopram [Lexapro] 10 mg PO DAILY 01/12/17 08/03/17 History Gabapentin [Neurontin] 200 mg PO BID 01/12/17 08/03/17 History Ipratropium-Albuterol Nebulize 3 ml INHALATION RT-Q4H PRN 01/12/17 08/03/17 History [Duoneb 0.5 mg-3 mg/3 ml Soln] Levothyroxine Sodium [Synthroid] 125 mcg PO DAILY@0600 01/12/17 08/03/17 History Lidocaine 5% Patch [Lidoderm 5% 1 patch TOPICAL Q12H PRN MDD 2 01/12/17 History Patch] patches Loratadine [Claritin] 10 mg PO DAILY 01/12/17 08/03/17 History Magnesium Hydroxide [Milk of 2,400 mg PO DAILY PRN 01/12/17 08/03/17 History Magnesia] Metoprolol Succinate [Toprol XL] 25 mg PO DAILY 01/12/17 08/03/17 History Omeprazole [PriLOSEC] 20 mg PO DAILY@0600 01/12/17 08/03/17 History Ondansetron HCl [Zofran] 4 mg PO Q6H PRN 01/12/17 08/03/17 History Polyethylene Glycol 3350 [Miralax] 17 gm PO HS 01/12/17 08/03/17 History Sodium Chloride [Saline Mist] 2 spray NASAL DAILY PRN 01/12/17 08/03/17 History Topiramate [Topamax] 50 mg PO BID 01/12/17 08/03/17 History amLODIPine [Norvasc] 5 mg PO DAILY 01/12/17 08/03/17 History Bismuth Subsalicylate 524 mg PO Q4H PRN 07/21/17 08/03/17 History [Pepto-Bismol] Ipratropium-Albuterol Nebulize 3 ml INHALATION RT-Q4H 07/21/17 08/03/17 History [Duoneb 0.5 mg-3 mg/3 ml Soln] Naldemedine Tosylate [Symproic] 0.2 mg PO DAILY 07/21/17 08/03/17 History QUEtiapine [SEROquel] 25 mg PO HS 07/21/17 08/03/17 History Sennosides-Docusate Sodium 2 tab PO BID 07/21/17 08/03/17 History [Senokot-S] ALPRAZolam [Xanax] 0.25 mg PO TID #90 tab 07/27/17 08/03/17 Rx Furosemide [Lasix] 40 mg PO BID@0900,1600 tab 07/27/17 08/03/17 Rx Hydrocodone/Acetaminophen [[place] 1 tab PO BID #60 tab 07/27/17 08/03/17 Rx 7.5-325] Hydrocodone/Acetaminophen [[place] 1 tab PO Q6HR PRN #60 tab 07/27/17 08/03/17 Rx 7.5-325] Levofloxacin [Levaquin] 500 mg PO DAILY #8 07/27/17 08/03/17 Rx Lidocaine Viscous 2% [Xylocaine 5 ml MUCOUS MEM Q4H PRN ml 07/27/17 08/03/17 Rx Viscous] guaiFENesin [Mucinex] 1,200 mg PO BID #20 tab.er.12h 07/27/17 08/03/17 Rx Budesonide [Pulmicort] 1 mg INHALATION RT-BID 08/03/17 08/03/17 History Escitalopram [Lexapro] 5 mg PO DAILY 08/03/17 08/03/17 History Fluconazole [Diflucan] 100 mg PO DAILY 08/03/17 08/03/17 History Melatonin 10 mg PO HS 08/03/17 08/03/17 History Nystatin 100,000 Unit/ml Susp 5,000,000 units PO DIRECTED 08/03/17 08/03/17 History [Mycostatin Oral Susp] acetaZOLAMIDE [Diamox] 250 mg PO DAILY 08/03/17 08/03/17 History predniSONE See Taper PO DIRECTED 08/03/17 08/03/17 History Allergies Allergy/AdvReac Type Severity Reaction Status Date / Time metronidazole [From Flagyl] Allergy Unknown Verified 08/03/17 14:13 Physical Exam Vitals: Vital Signs Temp Pulse Pulse Resp BP BP Pulse Ox 08/04/17 08:05 88 08/04/17 08:00 97.0 F L 88 16 130/62 92 L 08/04/17 03:38 96.5 F L 62 16 124/53 96 08/03/17 23:26 97.7 F 90 18 125/68 97 08/03/17 21:36 98.2 F 85 22 131/59 96 08/03/17 20:47 91 08/03/17 20:32 85 08/03/17 20:20 23 08/03/17 20:12 84 22 131/59 90 L 08/03/17 20:04 85 18 08/03/17 18:57 86 19 160/62 92 L 08/03/17 17:22 94 19 164/63 91 L 08/03/17 16:08 97 18 148/95 93 L 08/03/17 15:29 93 08/03/17 15:18 92 08/03/17 14:39 91 20 112/59 92 L 08/03/17 13:34 98.2 F 92 22 75/63 94 L Intake and Output 08/03/17 08/04/17 08/04/17 22:59 06:59 14:59 Intake Total 772.567 Balance 772.567 Intake: IV 620 0.9 160 Heparin Sod,Pork in 0.45% 160 NaCl 25,000 unit In 0.45 % NaCl 1 500ml.bag @ 10.5 UNITS/KG/HR 19.9 mls/hr IV .Q24H [facility] Rx#: [id number] Piperacillin-Tazobactam 3 50 .375 gm In Dextrose/Water 1 50ml.bag @ 12.5 mls/hr IVPB ONCE STA Rx#: [id number] Vancomycin 1,500 mg In 250 Sodium Chloride 0.9% 250 ml @ 125 mls/hr IVPB Q24H [facility] Rx#:[id number] Intake, IV Titration 152.567 Amount Heparin Sod,Pork in 0.45% 152.567 NaCl 25,000 unit In 0.45 % NaCl 1 500ml.bag @ 10.5 UNITS/KG/HR 19.9 mls/hr IV .Q24H [facility] Rx#: [id number] Other: Voiding Method Diaper Incontinent Weight 93 kg - Constitutional General appearance: cooperative, no acute distress, obese on 10 L high flow nasal cannula though comfortable - EENT Eyes: anicteric sclerae, PERRLA, normal appearance ENT: hearing grossly normal - Neck Neck: no lymphadenopathy, normal ROM, no other, no rigidity, no stridor, no thyromegaly - Respiratory Respiratory: Equal air entry with wheezes few rhonchi appears congested on examination - Cardiovascular Rhythm: regular Heart sounds: normal: S1, S2 Abnormal Heart Sounds: no systolic murmur, no diastolic murmur, no rub, no S3 Gallop, no S4 Gallop, no click, no other - Gastrointestinal General gastrointestinal: normal bowel sounds, soft, nontender, no guarding or rigidity - Integumentary Integumentary: no rash, bruising from IV site - Neurologic Neurologic: CNII-XII intact, minimal movement of lower extremity. Is able to use her upper extremities without any problems. - Musculoskeletal Musculoskeletal: Does have contractures bilateral upper and lower extremity - Psychiatric Psychiatric: A&O x's 3, appropriate affect Results CBC & Chem 7: 08/04/17 05:47 08/04/17 05:47 Labs: Abnormal Lab Results - Last 24 Hours (Table) 08/03/17 08/03/17 08/03/17 Range/Units 14:40 14:40 14:40 WBC 20.1 H (3.8-10.6) k/uL Neutrophils # 16.8 H (1.3-7.7) k/uL Lymphocytes # (1.0-4.8) k/uL APTT 21.0 L (22.0-30.0) sec Sodium 135 L (137-145) mmol/L Potassium 2.9 L* (3.5-5.1) mmol/L Chloride 88 L (98-107) mmol/L Carbon Dioxide 34 H (22-30) mmol/L BUN 34 H (7-17) mg/dL Creatinine 1.09 H (0.52-1.04) mg/dL Glucose 104 H (74-99) mg/dL Total Creatine Kinase (30-135) U/L Troponin I (0.000-0.034) ng/mL 08/03/17 08/03/17 08/04/17 Range/Units 14:40 20:07 01:17 WBC (3.8-10.6) k/uL Neutrophils # (1.3-7.7) k/uL Lymphocytes # (1.0-4.8) k/uL APTT (22.0-30.0) sec Sodium (137-145) mmol/L Potassium (3.5-5.1) mmol/L Chloride (98-107) mmol/L Carbon Dioxide (22-30) mmol/L BUN (7-17) mg/dL Creatinine (0.52-1.04) mg/dL Glucose (74-99) mg/dL Total Creatine Kinase <20 L <20 L <20 L (30-135) U/L Troponin I 0.040 H* (0.000-0.034) ng/mL 08/04/17 08/04/17 08/04/17 Range/Units 01:17 05:47 05:47 WBC 11.9 H (3.8-10.6) k/uL Neutrophils # 10.8 H (1.3-7.7) k/uL Lymphocytes # 0.5 L (1.0-4.8) k/uL APTT 55.4 H (22.0-30.0) sec Sodium 135 L (137-145) mmol/L Potassium 3.4 L (3.5-5.1) mmol/L Chloride 90 L (98-107) mmol/L Carbon Dioxide 37 H (22-30) mmol/L BUN 33 H (7-17) mg/dL Creatinine (0.52-1.04) mg/dL Glucose 117 H (74-99) mg/dL Total Creatine Kinase (30-135) U/L Troponin I (0.000-0.034) ng/mL Thrombosis Risk Factor Assmnt - DVT/VTE Prophylaxis DVT/VTE Prophylaxis: Pharmacologic Prophylaxis ordered - Choose All That Apply Each Factor Represents 1 point: Abnormal pulmonary function (COPD), Obesity ( BMI >25), Swollen legs (current) Each Risk Factor Represents 3 Points: Age 75 years or older Thrombosis Risk Factor Assessment Total Risk Factor Score: 6 Thrombosis Risk Factor Assessment Level: High Risk Assessment and Plan Plan: 1. Acute respiratory insufficiency secondary to acute on chronic diastolic heart failure and COPD exacerbation/ acute bronchitis with healthcare associated pneumonia as patient was recently treated in the hospital . Patient was treated with Levaquin in the last admission. Will switch antibiotic to vancomycin and Zosyn. On Lasix 40 mg IV push every 12 hours, sputum culture, blood culture, pulmonary consultation. Echocardiogram 2017 reveals EF of 55 -60% with concentric left ventricular hypertrophy, severe pulmonary hypertension, mild mitral regurgitation, severe tricuspid regurgitation. continue DuoNeb 3 mL nebulization 4 times every day. Continue Solu-Medrol 60 IV every 6 hours Monitor the patient weight on a daily basis. After 4 patient' s presentation is her severe pulmonary hypertension likely secondary to hypoventilation, patient may need increasing amount of oxygen in the next few years. 2. Acute on chronic diastolic heart failure. Continue Toprol-XL 25 mg orally once every day, continue patient on Lasix 40 mg IV push every 12 hours, continue to monitor input and output and daily weight 3. Morbid obesity with [place] - continue Bipap in the night 4 Medical debility, bedbound . Physical therapy evaluation, discharge to [facility] once patient stabilizes 5. GERD. Continue Protonix 40 mg orally once every day. 6. Hypertension and hypertensive cardiovascular disease. Continue Toprol-XL 25 mg orally once every day, amlodipine 5 mg orally once every day. 7. Hyperlipidemia. Low-cholesterol diet. 8. Hypothyroidism. Continue Synthroid 125 g orally once every day. 9. Peripheral neuropathy. Continue gabapentin 200 mg orally twice every day. 10. Depressive disorder. Continue patient on Cymbalta 60 mg orally once every day and Lexapro 10 mg orally once every day. 11. Osteoarthritis with joint deformities including the right hand as well as bilateral lower extremity's. History of prolonged hospitialisation including intubation with developmont of significant paraparesis of both lower extremities with significant deformity of the right wrist. 12. Anxiety disorder. Continue patient on Lexapro 10 mg orally once every day. 13. ALLERGIC rhinitis. Continue patient on Claritin 10 mg orally once every day. 14. DVT prophylaxis. Continue Lovenox 40 mg subcutaneously every 24 hours. 15. GI prophylaxis. Continue Protonix 40 mg orally once every day. 16. Patient is full code. Estimate a length of stay 2 midnights. 17. Admit to inpatient.
[2017-08-04] MEDS: NALDEMEDINE TOSYLATE 0.2 MG PO SCH (12:31)
[2017-08-04] MEDS: INSULIN ASPART 100 UNIT/ML 1 ML 10 ML VIAL SQ SCH ×3 (12:32→23:02)
[2017-08-04] MEDS: methylPREDNISolone SOD SUCCI 125 MG/2 ML VIAL IV SCH ×3 (12:32→23:18)
--- NOTE | 2017-08-04 14:44 | P.CNPUL ---
History of Present Illness Consult date: 08/04/17 Reason for consult: dyspnea, COPD, hypoxemia Chief complaint: Shortness of breath History of present illness: Consult dated 08/04/2017 77-year-old female who was just discharged from the hospital less than a week ago. She apparently presented to the emergency department with complaints of shortness of breath. She apparently does with oxygen . Her oxygen saturation was 87%. She was short of breath. She does have a history of atrial fibrillation and chronic bronchial asthma/COPD. Also has a history of coronary artery disease and CHF. She was a smoker in the past. She smoked for 40 years at 1-3 packs a day. She apparently saw my partner last week when she was in. She feels like she was not ready for discharge the last time she was here. She says. The patient is doing relatively well. She feels much better now. 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 Her family member tells me that she's not been out of bed for 10 or 15 years. She resides at [facility] on the [facility]. Review of Systems A 12 point review of system is positive for shortness of breath. She's feeling much better now. 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 History of Any Multi-Drug Resistant Organisms: VRE Date of last positivie culture/infection: 01/12/17 MDRO Source:: Urine Past Surgical History: Appendectomy, Orthopedic Surgery Additional Past Surgical History / Comment(s): PEG tube and trach placement with removal, left hip arthroplasty in 1995, insertion and removal of a tracheostomy tube. Past Psychological History: Anxiety, Depression Smoking Status: Former smoker Past Alcohol Use History: None Reported Additional Past Alcohol Use History / Comment(s): Patient was a smoker 3 packs per day for 38 years and quit in 1983. She has had alcohol use in the past. She worked in [employer] for 30 years and is retired. Past Drug Use History: None Reported - Past Family History Father Additional Family Medical History / Comment(s): at age 58 from a fall and head injury. Mother Family Medical History: CVA/TIA Additional Family Medical History / Comment(s): Mother at age 70 from a CVA. Brother(s) Additional Family Medical History / Comment(s): Patient has one brother with no major medical problems. Sister(s) Additional Family Medical History / Comment(s): Patient has one sister with no major medical problems. Daughter(s) Additional Family Medical History / Comment(s): Patient has 2 daughters no major medical problems. Medications and Allergies Home Medications Medication Instructions Recorded Confirmed Type Acetaminophen Tab [Tylenol] 500 mg PO Q6H PRN MDD 4000MG PER 01/12/17 08/03/17 History 24HR Aspirin 81 mg PO DAILY 01/12/17 08/03/17 History Cholecalciferol [Vitamin D3] 2,000 unit PO DAILY 01/12/17 08/03/17 History DULoxetine HCL [Cymbalta] 60 mg PO BID 01/12/17 08/03/17 History Escitalopram [Lexapro] 10 mg PO DAILY 01/12/17 08/03/17 History Gabapentin [Neurontin] 200 mg PO BID 01/12/17 08/03/17 History Ipratropium-Albuterol Nebulize 3 ml INHALATION RT-Q4H PRN 01/12/17 08/03/17 History [Duoneb 0.5 mg-3 mg/3 ml Soln] Levothyroxine Sodium [Synthroid] 125 mcg PO DAILY@0600 01/12/17 08/03/17 History Lidocaine 5% Patch [Lidoderm 5% 1 patch TOPICAL Q12H PRN MDD 2 01/12/17 History Patch] patches Loratadine [Claritin] 10 mg PO DAILY 01/12/17 08/03/17 History Magnesium Hydroxide [Milk of 2,400 mg PO DAILY PRN 01/12/17 08/03/17 History Magnesia] Metoprolol Succinate [Toprol XL] 25 mg PO DAILY 01/12/17 08/03/17 History Omeprazole [PriLOSEC] 20 mg PO DAILY@0600 01/12/17 08/03/17 History Ondansetron HCl [Zofran] 4 mg PO Q6H PRN 01/12/17 08/03/17 History Polyethylene Glycol 3350 [Miralax] 17 gm PO HS 01/12/17 08/03/17 History Sodium Chloride [Saline Mist] 2 spray NASAL DAILY PRN 01/12/17 08/03/17 History Topiramate [Topamax] 50 mg PO BID 01/12/17 08/03/17 History amLODIPine [Norvasc] 5 mg PO DAILY 01/12/17 08/03/17 History Bismuth Subsalicylate 524 mg PO Q4H PRN 07/21/17 08/03/17 History [Pepto-Bismol] Ipratropium-Albuterol Nebulize 3 ml INHALATION RT-Q4H 07/21/17 08/03/17 History [Duoneb 0.5 mg-3 mg/3 ml Soln] Naldemedine Tosylate [Symproic] 0.2 mg PO DAILY 07/21/17 08/03/17 History QUEtiapine [SEROquel] 25 mg PO HS 07/21/17 08/03/17 History Sennosides-Docusate Sodium 2 tab PO BID 07/21/17 08/03/17 History [Senokot-S] ALPRAZolam [Xanax] 0.25 mg PO TID #90 tab 07/27/17 08/03/17 Rx Furosemide [Lasix] 40 mg PO BID@0900,1600 tab 07/27/17 08/03/17 Rx Hydrocodone/Acetaminophen [[place] 1 tab PO BID #60 tab 07/27/17 08/03/17 Rx 7.5-325] Hydrocodone/Acetaminophen [[place] 1 tab PO Q6HR PRN #60 tab 07/27/17 08/03/17 Rx 7.5-325] Levofloxacin [Levaquin] 500 mg PO DAILY #8 07/27/17 08/03/17 Rx Lidocaine Viscous 2% [Xylocaine 5 ml MUCOUS MEM Q4H PRN ml 07/27/17 08/03/17 Rx Viscous] guaiFENesin [Mucinex] 1,200 mg PO BID #20 tab.er.12h 07/27/17 08/03/17 Rx Budesonide [Pulmicort] 1 mg INHALATION RT-BID 08/03/17 08/03/17 History Escitalopram [Lexapro] 5 mg PO DAILY 08/03/17 08/03/17 History Fluconazole [Diflucan] 100 mg PO DAILY 08/03/17 08/03/17 History Melatonin 10 mg PO HS 08/03/17 08/03/17 History Nystatin 100,000 Unit/ml Susp 5,000,000 units PO DIRECTED 08/03/17 08/03/17 History [Mycostatin Oral Susp] acetaZOLAMIDE [Diamox] 250 mg PO DAILY 08/03/17 08/03/17 History predniSONE See Taper PO DIRECTED 08/03/17 08/03/17 History Allergies Allergy/AdvReac Type Severity Reaction Status Date / Time metronidazole [From Flagyl] Allergy Unknown Verified 08/03/17 14:13 Physical Exam Osteopathic Statement: *. No significant issues noted on an osteopathic structural exam other than those noted in the History and Physical/Consult. Vitals: Vital Signs Temp Pulse Pulse Resp BP BP Pulse Ox 08/04/17 12:40 20 08/04/17 11:26 97.1 F L 86 20 114/55 92 L 08/04/17 11:00 86 20 08/04/17 10:30 76 91/46 08/04/17 09:40 16 08/04/17 08:20 92 08/04/17 08:05 88 08/04/17 08:00 97.0 F L 88 16 130/62 92 L 08/04/17 03:38 96.5 F L 62 16 124/53 96 08/03/17 23:26 97.7 F 90 18 125/68 97 08/03/17 21:36 98.2 F 85 22 131/59 96 03/21/18 20:47 91 08/03/17 20:32 85 08/03/17 20:20 23 08/03/17 20:12 84 22 131/59 90 L 08/03/17 20:04 85 18 08/03/17 18:57 86 19 160/62 92 L 08/03/17 17:22 94 19 164/63 91 L 08/03/17 16:08 97 18 148/95 93 L 08/03/17 15:29 93 08/03/17 15:18 92 08/03/17 14:39 91 20 112/59 92 L Intake and Output 08/03/17 08/04/17 08/04/17 22:59 06:59 14:59 Intake Total 556.324 8123 Balance 692.055 8270 Intake: IV 620 600 0.9 160 600 Heparin Sod,Pork in 0.45% 160 NaCl 25,000 unit In 0.45 % NaCl 1 500ml.bag @ 10.5 UNITS/KG/HR 19.9 mls/hr IV .Q24H [facility] Rx#: [id number] Piperacillin-Tazobactam 3 50 .375 gm In Dextrose/Water 1 50ml.bag @ 12.5 mls/hr IVPB ONCE [facility] Rx#: [id number] Vancomycin 1,500 mg In 250 Sodium Chloride 0.9% 250 ml @ 125 mls/hr IVPB Q24H [facility] Rx#:[id number] Intake, IV Titration 152.567 Amount Heparin Sod,Pork in 0.45% 152.567 NaCl 25,000 unit In 0.45 % NaCl 1 500ml.bag @ 10.5 UNITS/KG/HR 19.9 mls/hr IV .Q24H [facility] Rx#: [id number] Oral 574 Lipid 600 0.9 600 Other: Voiding Method Diaper Bedpan Incontinent Weight 93 kg 93 kg No acute distress, oriented 3. The patient is wearing nasal O2 at 4 L. HEENT examination is grossly unremarkable. Mucous membranes are moist. No oral lesions. Neck supple. Full range of motion. No adenopathy thyromegaly or neck vein distention. Cardiovascular examination reveals regular rhythm rate. S1-S2 normal. No S3 or S4. No discernible murmur noted. Lungs reveal scattered rhonchi. No wheezes. A few crackles are noted. Breath sounds are equal bilaterally. She does not take real deep breaths.. Abdomen soft bowel sounds are heard. No masses or tenderness. Extremities are intact. Deformities of rheumatoid arthritis are noted. Skin is without rash or lesion. Neurologic examination is brief but nonfocal. Results - Laboratory Findings CBC and BMP: 08/04/17 05:47 08/04/17 05:47 ABG ABG pH 7.37 (7.35-7.45) 08/04/17 10:10 ABG pCO2 63 mmHg (35-45) H 08/04/17 10:10 ABG pO2 114 mmHg (83-108) H 08/04/17 10:10 ABG O2 Saturation 99.0 % (94-97) H 08/04/17 10:10 PT/INR, D-dimer PT 10.2 sec (9.0-12.0) 08/03/17 14:40 INR 1.0 (<1.2) 08/03/17 14:40 D-Dimer 0.30 mg/L FEU (<0.60) 08/04/17 05:47 Abnormal lab findings: Abnormal Labs 08/03/17 08/03/17 08/03/17 14:40 14:40 14:40 WBC 20.1 H Neutrophils # 16.8 H Lymphocytes # APTT 21.0 L ABG pCO2 ABG pO2 ABG HCO3 ABG Total CO2 ABG O2 Saturation Sodium 135 L Potassium 2.9 L* Chloride 88 L Carbon Dioxide 34 H BUN 34 H Creatinine 1.09 H Glucose 104 H POC Glucose (mg/dL) Total Creatine Kinase Troponin I 08/03/17 08/03/17 08/04/17 14:40 20:07 01:17 WBC Neutrophils # Lymphocytes # APTT ABG pCO2 ABG pO2 ABG HCO3 ABG Total CO2 ABG O2 Saturation Sodium Potassium Chloride Carbon Dioxide BUN Creatinine Glucose POC Glucose (mg/dL) Total Creatine Kinase <20 L <20 L <20 L Troponin I 0.040 H* 08/04/17 08/04/17 08/04/17 01:17 05:47 05:47 WBC 11.9 H Neutrophils # 10.8 H Lymphocytes # 0.5 L APTT 55.4 H ABG pCO2 ABG pO2 ABG HCO3 ABG Total CO2 ABG O2 Saturation Sodium 135 L Potassium 3.4 L Chloride 90 L Carbon Dioxide 37 H BUN 33 H Creatinine Glucose 117 H POC Glucose (mg/dL) Total Creatine Kinase Troponin I 08/04/17 08/04/17 10:10 11:19 WBC Neutrophils # Lymphocytes # APTT ABG pCO2 63 H ABG pO2 114 H ABG HCO3 37 H ABG Total CO2 38 H ABG O2 Saturation 99.0 H Sodium Potassium Chloride Carbon Dioxide BUN Creatinine Glucose POC Glucose (mg/dL) 156 H Total Creatine Kinase Troponin I - Diagnostic Findings Chest x-ray: image reviewed (Labs x-rays a medications are all reviewed.) Assessment and Plan Assessment: Assessment Shortness of breath, likely multifactorial, in part related to underlying mild fluid overload as well as COPD exacerbation. Acute on chronic hypoxemic and hypercapnic respiratory failure History of CHF History of GERD History of hyperlipidemia History of hypertension Sleep apnea syndrome, currently on home BiPAP therapy DJD Hypothyroidism Previous episode of respiratory failure with prolonged mechanical ventilation, status post tracheostomy tube and PEG tube placement History of vancomycin-resistant enterococci and Proteus mirabilis urinary tract infections Vitamin D deficiency Morbid obesity. Generalized anxiety disorder Multiple other medical problems and comorbidities Plan: Plan dated 08/04/2017 The patient's medications are reviewed. X-rays and labs are reviewed. She has a history of chronic well compensated hypercapnia. She likely has pretty significant COPD and/or sleep apnea syndrome and/or pickwickian syndrome. The patient's feeling much better today. Her breathing is much improved. Chest x- ray shows cardiomegaly and some mild vascular congestion. A BNP was not done. Medications reviewed. Adjustments are made. Time with Patient: Greater than 30
[2017-08-04] MEDS: ACETAMINOPHEN TAB 500 MG TAB PO PRN (15:48)
[2017-08-04 16:37] LABS: Glucose,Whole Blood 121 mg/dL (75-99)
[2017-08-04] MEDS: FORMOTEROL FUMARATE 20 MCG/2 ML NEBU INHALATION SCH (19:17)
[2017-08-04 20:52] LABS: Glucose,Whole Blood 168 mg/dL (75-99)
[2017-08-04] MEDS: MELATONIN 5 MG TABLET PO SCH (22:57)
[2017-08-04] MEDS: QUEtiapine 25 MG TAB PO SCH (23:01)
[2017-08-04] MEDS: POLYETHYLENE GLYCOL 3350 17 GM POWD.PACK PO SCH (23:03)
[2017-08-05 06:14] LABS: Glucose,Whole Blood 120 mg/dL (75-99)
[2017-08-05] MEDS: INSULIN ASPART 100 UNIT/ML 1 ML 10 ML VIAL SQ SCH ×4 (06:18→21:44)
[2017-08-05 06:48] LABS: Basophils % (A) 0 %; Eosinophils % (A) 0 %; HCT 36.8 % (34.0-46.0); HGB 11.6 gm/dL (11.4-16.0); Hypochromasia Slight; Lymphocytes # (A) 0.3 k/uL (1.0-4.8); Lymphocytes % (A) 2 %; MCH 27.8 pg (25.0-35.0); MCHC 31.6 g/dL (31.0-37.0); MCV 87.8 fL (80.0-100.0); Mean Platelet Volume 6.6; Monocytes # (A) 0.1 k/uL (0-1.0); Monocytes % (A) 1 %; Neutrophils # (A) 10.5 k/uL (1.3-7.7); Neutrophils % (A) 96 %; Platelet Count 247 k/uL (150-450); RBC 4.19 m/uL (3.80-5.40); WBC 10.9 k/uL (3.8-10.6)
[2017-08-05] MEDS: LEVOTHYROXINE 125 MCG TAB PO SCH (06:50)
[2017-08-05] MEDS: PANTOPRAZOLE 40 MG TABLET PO SCH (06:50)
[2017-08-05] MEDS: VANCOMYCIN 1,500 MG in SODIUM CHLORIDE 0.9% 250 ML IVPB SCH (06:51)
[2017-08-05] MEDS: methylPREDNISolone SOD SUCCI 125 MG/2 ML VIAL IV SCH ×4 (06:53→23:50)
[2017-08-05 06:58] LABS: Calcium 8.9 mg/dL (8.4-10.2); Potassium 3.6 mmol/L (3.5-5.1); Total Bilirubin 0.6 mg/dL (0.2-1.3); Total Protein 5.6 g/dL (6.3-8.2)
[2017-08-05] MEDS: BUDESONIDE 1 MG/2 ML NEBU INHALATION SCH ×2 (08:28→20:19)
[2017-08-05] MEDS: FORMOTEROL FUMARATE 20 MCG/2 ML NEBU INHALATION SCH ×2 (08:28→20:19)
[2017-08-05] MEDS: IPRATROPIUM-ALBUTEROL 3 ML NEB INHALATION SCH ×4 (08:28→20:19)
[2017-08-05] MEDS: acetaZOLAMIDE 250 MG TAB PO SCH (08:46)
[2017-08-05] MEDS: ALPRAZolam 0.25 MG TAB PO SCH ×3 (08:46→22:27)
[2017-08-05] MEDS: ASPIRIN 81 MG PO SCH (08:47)
[2017-08-05] MEDS: CHOLECALCIFEROL 1,000 UNIT TAB PO SCH (08:47)
[2017-08-05] MEDS: amLODIPine 5 MG TAB PO SCH (08:47)
[2017-08-05] MEDS: ESCITALOPRAM 5 MG TAB PO SCH (08:48)
[2017-08-05] MEDS: DULoxetine HCL 60 MG CAPSULE.DR PO SCH ×2 (08:48→20:22)
[2017-08-05] MEDS: ESCITALOPRAM 10 MG TAB PO SCH (08:49)
[2017-08-05] MEDS: FLUCONAZOLE 100 MG TAB PO SCH (08:49)
[2017-08-05] MEDS: GABAPENTIN 100 MG CAP PO SCH ×2 (08:50→20:19)
[2017-08-05] MEDS: guaiFENesin 600 MG TABLET.ER PO SCH ×2 (08:50→20:20)
[2017-08-05] MEDS: HYDROcodone/APAP 7.5-325MG 1 EACH TAB PO SCH ×3 (08:51→23:29)
[2017-08-05] MEDS: METOPROLOL SUCCINATE (ER) 25 MG TAB.ER.24H PO SCH (08:53)
[2017-08-05] MEDS: LORATADINE 10 MG TAB PO SCH (08:53)
[2017-08-05] MEDS: predniSONE 20 MG TAB PO SCH (08:54)
[2017-08-05] MEDS: SENNOSIDES-DOCUSATE SODIUM 1 EACH TAB PO SCH ×2 (08:57→20:20)
[2017-08-05] MEDS: TOPIRAMATE 25 MG TAB PO SCH ×2 (08:58→20:21)
[2017-08-05] MEDS: PIPERACILLIN-TAZOBACTAM 3.375 GM in DEXTROSE/WATER 1 50ML.BAG IVPB SCH ×3 (09:11→23:51)
[2017-08-05] MEDS: ENOXAPARIN 40 MG/0.4 ML SYRINGE SQ SCH (09:13)
[2017-08-05] MEDS: FUROSEMIDE 10 MG/ML 4 ML VIAL IV SCH ×2 (09:13→20:19)
[2017-08-05] MEDS: NALDEMEDINE TOSYLATE 0.2 MG PO SCH (09:16)
[2017-08-05] MEDS ORDERED: BISACODYL 10 MG SUPP RECTAL STA (11:25)
[2017-08-05 12:35] LABS: Glucose,Whole Blood 163 mg/dL (75-99)
--- NOTE | 2017-08-05 12:45 | P.PN ---
Subjective Progress Note Date: 08/05/17 This is a 77-year-old female with history of severe pulmonary hypertension, severe P COPD and recurrent episodes of COPD exacerbation who was recently discharged home on the of this month. She was seen in consultation by Dr. Isbell yesterday. He presented this admission with complaints of worsening shortness of breath, drop in oxygenation and respiratory distress. We were asked to the patient in consultation due to mildly elevated troponins. We ordered a d-dimer to be done yesterday which came back to be negative. Upon examination today, patient is resting in bed. Her only complaint is of constipation. She feels her breathing is good denies any chest discomfort or palpitations and has no dizziness or lightheadedness. Objective - Vital Signs Vital signs: Vital Signs Temp 98.2 F 08/05/17 10:44 Pulse 88 08/05/17 12:00 Resp 16 08/05/17 11:01 BP 125/57 08/05/17 10:44 Pulse Ox 100 08/05/17 10:44 Intake & Output 08/04/17 08/05/17 08/05/17 18:59 06:59 18:59 Intake Total 2904 300 980 Output Total 0 Balance 2904 300 980 Weight 93 kg 92.5 kg Intake: IV 750 0.9 600 Heparin Sod,Pork in 0.45% 100 NaCl 25,000 unit In 0.45 % NaCl 1 500ml.bag @ 10.5 UNITS/KG/HR 19.9 mls/hr IV .Q24H [facility] Rx#: [id number] Piperacillin-Tazobactam 3 50 .375 gm In Dextrose/Water 1 50ml.bag @ 12.5 mls/hr IVPB ONCE [facility] Rx#: [id number] Intake, IV Titration 50 Amount Piperacillin-Tazobactam 3 50 .375 gm In Dextrose/Water 1 50ml.bag @ 12.5 mls/hr IVPB ONCE [facility] Rx#: [id number] Oral 1504 300 980 Lipid 600 0.9 600 Output: Urine 0 Other: Voiding Method Bedpan Bedpan Bedpan # Voids 1 2 - Exam PHYSICAL EXAMINATION: HEENT: Head is atraumatic, normocephalic. Pupils equal, round. Neck is supple. There is no elevated jugular venous pressure. HEART EXAMINATION: Heart sounds regular, S1 and S2 normal. No murmur or gallop heard. CHEST EXAMINATION: Lungs reveal diminished air entry bilaterally with expiratory wheezing. No chest wall tenderness is noted on palpation or with deep breathing. ABDOMEN: Soft, obese, nontender. Bowel sounds are heard. No organomegaly noted. EXTREMITIES: 2+ peripheral pulses with no evidence of peripheral edema and no calf tenderness noted. NEUROLOGIC patient is awake, alert and oriented x3. . - Labs CBC & Chem 7: 08/05/17 06:14 08/05/17 06:14 Labs: Abnormal Lab Results - Last 24 Hours (Table) 08/04/17 08/04/17 08/05/17 Range/Units 16:13 20:51 06:13 WBC (3.8-10.6) k/uL Neutrophils # (1.3-7.7) k/uL Lymphocytes # (1.0-4.8) k/uL Chloride (98-107) mmol/L Carbon Dioxide (22-30) mmol/L BUN (7-17) mg/dL Glucose (74-99) mg/dL POC Glucose (mg/dL) 121 H 168 H 120 H (75-99) mg/dL AST (14-36) U/L Total Protein (6.3-8.2) g/dL Albumin (3.5-5.0) g/dL 08/05/17 08/05/17 08/05/17 Range/Units 06:14 06:14 12:08 WBC 10.9 H (3.8-10.6) k/uL Neutrophils # 10.5 H (1.3-7.7) k/uL Lymphocytes # 0.3 L (1.0-4.8) k/uL Chloride 92 L (98-107) mmol/L Carbon Dioxide 35 H (22-30) mmol/L BUN 31 H (7-17) mg/dL Glucose 119 H (74-99) mg/dL POC Glucose (mg/dL) 163 H (75-99) mg/dL AST 13 L (14-36) U/L Total Protein 5.6 L (6.3-8.2) g/dL Albumin 3.0 L (3.5-5.0) g/dL Assessment and Plan Assessment: #1 acute worsening of chronic shortness of breath, negative d-dimer, likely secondary to chronic obstructive pulmonary disease exacerbation #2 severe pulmonary hypertension #3 history of chronic diastolic congestive heart failure #4 hypertension Plan: From cardiology's perspective, medications were reviewed and we will continue the same. Patient's respiratory symptoms likely due to exacerbation of COPD and severe pulmonary hypertension. We will follow the patient on an as-needed basis. Please do not hesitate to contact us with questions. The above dictated assessment and findings were discussed with signing physician. The impression and plan of care have been directed as dictated. Shira Warren, Nurse Practitioner, acting as scribe for signing physician.
--- NOTE | 2017-08-05 14:00 | P.PN ---
Subjective Progress Note Date: 08/05/17 Principal diagnosis: Acute exacerbation of chronic obstructive pulmonary disease along with some mild fluid volume overload Consult dated 08/04/2017 77-year-old female who was just discharged from the hospital less than a week ago. She apparently presented to the emergency department with complaints of shortness of breath. She apparently does with oxygen . Her oxygen saturation was 87%. She was short of breath. She does have a history of atrial fibrillation and chronic bronchial asthma/COPD. Also has a history of coronary artery disease and CHF. She was a smoker in the past. She smoked for 40 years at 1-3 packs a day. She apparently saw my partner last week when she was in. She feels like she was not ready for discharge the last time she was here. She says. The patient is doing relatively well. She feels much better now. 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 Her family member tells me that she's not been out of bed for 10 or 15 years. She resides at [facility] on the [facility]. The patient is seen again today 08/05/2017 in follow-up on the selective care unit. She is currently resting quite comfortably in bed. She denies any worsening shortness of breath. She does continue with a loose nonproductive cough. She is continued on 8 L high flow nasal cannula currently at 100% O2 saturations. She is afebrile. White count 10.9. Hemoglobin 11.6. Creatinine 1.00. She is continued on DuoNeb inhalations, Pulmicort and Perforomist, IV Solu-Medrol, Mucinex. She is being diuresed with Lasix 40 mg IV push every 12 hours. She is on vancomycin and Zosyn. Objective - Vital Signs Vital signs: Vital Signs Temp 98.2 F 08/05/17 10:44 Pulse 88 08/05/17 12:00 Resp 16 08/05/17 11:01 BP 125/57 08/05/17 10:44 Pulse Ox 100 08/05/17 10:44 Intake & Output 08/04/17 08/05/17 08/05/17 18:59 06:59 18:59 Intake Total 2904 300 980 Output Total 0 Balance 2904 300 980 Weight 93 kg 92.5 kg Intake: IV 750 0.9 600 Heparin Sod,Pork in 0.45% 100 NaCl 25,000 unit In 0.45 % NaCl 1 500ml.bag @ 10.5 UNITS/KG/HR 19.9 mls/hr IV .Q24H [facility] Rx#: [id number] Piperacillin-Tazobactam 3 50 .375 gm In Dextrose/Water 1 50ml.bag @ 12.5 mls/hr IVPB ONCE [facility] Rx#: [id number] Intake, IV Titration 50 Amount Piperacillin-Tazobactam 3 50 .375 gm In Dextrose/Water 1 50ml.bag @ 12.5 mls/hr IVPB ONCE [facility] Rx#: [id number] Oral 1504 300 980 Lipid 600 0.9 600 Output: Urine 0 Other: Voiding Method Bedpan Bedpan Bedpan # Voids 1 2 - Exam GENERAL EXAM: Morbidly obese. Alert, comfortable in no apparent distress. HEAD: Normocephalic. EYES: Normal reaction of pupils, equal size. NOSE: Clear with pink turbinates. THROAT: No erythema or exudates. NECK: No masses, no JVD. CHEST: No chest wall deformity. LUNGS: Equal air entry with scattered crackles in the bases. CVS: S1 and S2 normal with no audible murmur, regular rhythm. ABDOMEN: Obese, normal bowel sounds, no guarding or rigidity. SPINE: No scoliosis or deformity SKIN: No rashes CENTRAL NERVOUS SYSTEM: No focal deficits, tone is normal in all 4 extremities. EXTREMITIES: There is contracture deformities. 1-2+ edema.. No clubbing, no cyanosis. Peripheral pulses are intact. - Labs CBC & Chem 7: 08/05/17 06:14 08/05/17 06:14 Labs: Abnormal Lab Results - Last 24 Hours (Table) 08/04/17 08/04/17 08/05/17 Range/Units 16:13 20:51 06:13 WBC (3.8-10.6) k/uL Neutrophils # (1.3-7.7) k/uL Lymphocytes # (1.0-4.8) k/uL Chloride (98-107) mmol/L Carbon Dioxide (22-30) mmol/L BUN (7-17) mg/dL Glucose (74-99) mg/dL POC Glucose (mg/dL) 121 H 168 H 120 H (75-99) mg/dL AST (14-36) U/L Total Protein (6.3-8.2) g/dL Albumin (3.5-5.0) g/dL 08/05/17 08/05/17 08/05/17 Range/Units 06:14 06:14 12:08 WBC 10.9 H (3.8-10.6) k/uL Neutrophils # 10.5 H (1.3-7.7) k/uL Lymphocytes # 0.3 L (1.0-4.8) k/uL Chloride 92 L (98-107) mmol/L Carbon Dioxide 35 H (22-30) mmol/L BUN 31 H (7-17) mg/dL Glucose 119 H (74-99) mg/dL POC Glucose (mg/dL) 163 H (75-99) mg/dL AST 13 L (14-36) U/L Total Protein 5.6 L (6.3-8.2) g/dL Albumin 3.0 L (3.5-5.0) g/dL Assessment and Plan Assessment: Assessment Shortness of breath, likely multifactorial, in part related to underlying mild fluid overload as well as COPD exacerbation. Acute on chronic hypoxemic and hypercapnic respiratory failure History of CHF History of GERD History of hyperlipidemia History of hypertension Sleep apnea syndrome, currently on home BiPAP therapy DJD Hypothyroidism Previous episode of respiratory failure with prolonged mechanical ventilation, status post tracheostomy tube and PEG tube placement History of vancomycin-resistant enterococci and Proteus mirabilis urinary tract infections Vitamin D deficiency Morbid obesity. Generalized anxiety disorder Multiple other medical problems and comorbidities Plan: The patient was seen and evaluated by Dr. Russ. She is improved today as compared to yesterday. We'll continue with her current treatment plan. We'll continue to follow. I, the cosigning physician, performed a history & physical examination of the patient. Lungs sounds have few scattered rhonchi, crackles in the bases. Maintaining good O2 saturations in the 90s on 8 L high flow nasal cannula. I discussed the assessment and plan of care with my nurse practitioner, Bhavani Fernandez. I attest to the above note as dictated by her.
--- NOTE | 2017-08-05 14:14 | XR ---
Abdomen HISTORY: Ileus Frontal view of the abdomen submitted on 2 images and correlated to prior exam dated 01/20/2017 CT abdo men pelvis, plain film 01/11/2017 Post hip arthroplasty again noted on the left. Bone mineralization is reduced. Arthropathy persists i n the right hip. Patient is markedly rotated. Retained fecal debris present within the rectum. There are air-filled loops of small and large bowel, air-filled stomach noted. Retained fecal debris presen t within the descending colon. Lung bases not included on the exam. There are overlying cardiac leads . Degenerative disc changes, spinal curvature in the visualized spine. IMPRESSION: Correlate for fecal stasis, impaction. Follow-up as indicated. Limitations as described.
--- NOTE | 2017-08-05 14:17 | P.PN ---
Subjective Progress Note Date: 08/05/17 77-year-old female patient of Dr. Elizabeth currently residing at [facility] with past medical history COPD on 4 L Oxygen , hypertension, obstructive sleep apnea on BiPAP at nighttime, chronic pain, gastric esophageal reflux disease, hypothyroidism, ALLERGIC rhinitis, osteoarthritis, idiopathic peripheral autonomic neuropathy, chronic urinary tract infections, vitamin D deficiency, morbid obesity, bed bound forthe past 13 years, h/o prolonged intubation leading to tracheostomy which was finally removed, has been bedbound ever seen. Patient was just discharged on 07/27 to [facility] after treating her for acute hypoxic respiratory failure from bilateral lower lobe pneumonia with accompanying of tracheobronchitis for COPD exacerbation. Patient was also treated for acute diastolic heart failure during that admission. On discharge patient was back on her baseline of 4 L. According to the daughter patient was gradually uptitrated on her oxygen in the last few days. She was coughing up since discharge and has not gotten better since discharge. Patient endorses chills denies fever. She does feel short of breath and productive cough with greenish in color. Patient denies any history of DVT or pulmonary embolism in the past. She appears to be mentating well. Currently requiring 10 L of high flow on the oxygen. Vitals otherwise is stable with blood pressure 114/55, afebrile tachypneic to 20. Labs suggestive a leukocytosis of 20, d-dimer was normal. ABG was conducted this morning suggested a CO2 of 63 and pO2 114 at FiO2 of 60%. Influenza was negative 08/05: Patient has been refusing to be turned in bed during the night. Specialty mattress ordered. Patient is also refusing to do incentive spirometry. Patient has had no bowel movement is is feeling constipated. She is starting on MiraLAX and Senokot. Dulcolax suppository will be added. Patient does have some abdominal distention and x-rays will be requested. Cardiology is following the patient with no change in medications. They are now following the patient on an as-needed basis. Pulmonary medicine is also on consult. Discussed with patient the need to cooperate with the nurses to prevent further breakdown in her skin. Patient has a stage II decubitus ulcer to the coccyx area. Patient is followed by both cardiology and pulmonary medicine. No medication changes made today. Patient is continued on Solu- Medrol 60 mg IV every 6 hours. She is on IV vancomycin and Zosyn. Daughter is at the bedside and all questions of been answered. Objective - Vital Signs Vital signs: Vital Signs Temp 98.2 F 08/05/17 10:44 Pulse 88 08/05/17 11:01 Resp 16 08/05/17 11:01 BP 125/57 08/05/17 10:44 Pulse Ox 100 08/05/17 10:44 Intake & Output 08/04/17 08/05/17 08/05/17 18:59 06:59 18:59 Intake Total 2904 300 980 Output Total 0 Balance 2904 300 980 Weight 93 kg 92.5 kg Intake: IV 750 0.9 600 Heparin Sod,Pork in 0.45% 100 NaCl 25,000 unit In 0.45 % NaCl 1 500ml.bag @ 10.5 UNITS/KG/HR 19.9 mls/hr IV .Q24H [facility] Rx#: [id number] Piperacillin-Tazobactam 3 50 .375 gm In Dextrose/Water 1 50ml.bag @ 12.5 mls/hr IVPB ONCE STA Rx#: [id number] Intake, IV Titration 50 Amount Piperacillin-Tazobactam 3 50 .375 gm In Dextrose/Water 1 50ml.bag @ 12.5 mls/hr IVPB ONCE STA Rx#: [id number] Oral 1504 300 980 Lipid 600 0.9 600 Output: Urine 0 Other: Voiding Method Bedpan Bedpan Bedpan # Voids 1 - Exam General appearance: cooperative, no acute distress, obese on 10 L high flow nasal cannula though comfortable - EENT Eyes: anicteric sclerae, PERRLA, normal appearance ENT: hearing grossly normal - Neck Neck: no lymphadenopathy, normal ROM, no other, no rigidity, no stridor, no thyromegaly - Respiratory Respiratory: Equal air entry with wheezes few rhonchi appears congested on examination - Cardiovascular Rhythm: regular Heart sounds: normal: S1, S2 Abnormal Heart Sounds: no systolic murmur, no diastolic murmur, no rub, no S3 Gallop, no S4 Gallop, no click, no other - Gastrointestinal General gastrointestinal: normal bowel sounds, soft, nontender, no guarding or rigidity - Integumentary Integumentary: no rash, bruising from IV site - Neurologic Neurologic: CNII-XII intact, minimal movement of lower extremity. Is able to use her upper extremities without any problems. - Musculoskeletal Musculoskeletal: Does have contractures bilateral upper and lower extremity - Psychiatric Psychiatric: A&O x's 3, appropriate affect - Labs CBC & Chem 7: 08/05/17 06:14 08/05/17 06:14 Labs: Abnormal Lab Results - Last 24 Hours (Table) 08/04/17 08/04/17 08/04/17 Range/Units 11:19 16:13 20:51 WBC (3.8-10.6) k/uL Neutrophils # (1.3-7.7) k/uL Lymphocytes # (1.0-4.8) k/uL Chloride (98-107) mmol/L Carbon Dioxide (22-30) mmol/L BUN (7-17) mg/dL Glucose (74-99) mg/dL POC Glucose (mg/dL) 156 H 121 H 168 H (75-99) mg/dL AST (14-36) U/L Total Protein (6.3-8.2) g/dL Albumin (3.5-5.0) g/dL 08/05/17 08/05/17 08/05/17 Range/Units 06:13 06:14 06:14 WBC 10.9 H (3.8-10.6) k/uL Neutrophils # 10.5 H (1.3-7.7) k/uL Lymphocytes # 0.3 L (1.0-4.8) k/uL Chloride 92 L (98-107) mmol/L Carbon Dioxide 35 H (22-30) mmol/L BUN 31 H (7-17) mg/dL Glucose 119 H (74-99) mg/dL POC Glucose (mg/dL) 120 H (75-99) mg/dL AST 13 L (14-36) U/L Total Protein 5.6 L (6.3-8.2) g/dL Albumin 3.0 L (3.5-5.0) g/dL Assessment and Plan Plan: 1. Acute respiratory insufficiency secondary to acute on chronic diastolic heart failure and COPD exacerbation/ acute bronchitis with healthcare associated pneumonia as patient was recently treated in the hospital. Continue vancomycin and Zosyn. On Lasix 40 mg IV push every 12 hours, sputum culture, blood culture, pulmonary consultation. Echocardiogram 2017 reveals EF of 55 -60% with concentric left ventricular hypertrophy, severe pulmonary hypertension, mild mitral regurgitation, severe tricuspid regurgitation. continue DuoNeb 3 mL nebulization 4 times every day. Continue Solu-Medrol 60 IV every 6 hours Monitor the patient weight on a daily basis. After 4 patient' s presentation is her severe pulmonary hypertension likely secondary to hypoventilation, patient may need increasing amount of oxygen in the next few years. 2. Acute on chronic diastolic heart failure. Continue Toprol-XL 25 mg orally once every day, continue patient on Lasix 40 mg IV push every 12 hours, continue to monitor input and output and daily weight 3. Morbid obesity with PALMIRA - continue Bipap in the night 4 Medical debility, bedbound . Physical therapy evaluation, discharge to [facility] once patient stabilizes 5. GERD. Continue Protonix 40 mg orally once every day. 6. Hypertension and hypertensive cardiovascular disease. Continue Toprol-XL 25 mg orally once every day, amlodipine 5 mg orally once every day. 7. Hyperlipidemia. Low-cholesterol diet. 8. Hypothyroidism. Continue Synthroid 125 g orally once every day. 9. Peripheral neuropathy. Continue gabapentin 200 mg orally twice every day. 10. Depressive disorder. Continue patient on Cymbalta 60 mg orally once every day and Lexapro 10 mg orally once every day. 11. Osteoarthritis with joint deformities including the right hand as well as bilateral lower extremity's. History of prolonged hospitialisation including intubation with developmont of significant paraparesis of both lower extremities with significant deformity of the right wrist. 12. Anxiety disorder. Continue patient on Lexapro 10 mg orally once every day. 13. ALLERGIC rhinitis. Continue patient on Claritin 10 mg orally once every day. 14. DVT prophylaxis. Continue Lovenox 40 mg subcutaneously every 24 hours. 15. GI prophylaxis. Continue Protonix 40 mg orally once every day. 16. Patient is full code. Discharge plan: Return to [facility] Impression and plan of care have been directed as dictated by the signing physician. Mary Souza nurse practitioner acting as scribe for signing physician.
[2017-08-05 16:40] LABS: Glucose,Whole Blood 170 mg/dL (75-99)
[2017-08-05] MEDS: POLYETHYLENE GLYCOL 3350 17 GM POWD.PACK PO SCH (20:20)
[2017-08-05] MEDS: QUEtiapine 25 MG TAB PO SCH (20:20)
[2017-08-05] MEDS: MELATONIN 5 MG TABLET PO SCH (20:20)
[2017-08-05 20:56] LABS: Glucose,Whole Blood 117 mg/dL (75-99)
[2017-08-05] MEDS: ACETAMINOPHEN TAB 500 MG TAB PO PRN (21:37)
[2017-08-06] MEDS: VANCOMYCIN 1,500 MG in SODIUM CHLORIDE 0.9% 250 ML IVPB SCH (06:07)
[2017-08-06] MEDS: methylPREDNISolone SOD SUCCI 125 MG/2 ML VIAL IV SCH ×4 (06:08→23:18)
[2017-08-06] MEDS: LEVOTHYROXINE 125 MCG TAB PO SCH (06:09)
[2017-08-06] MEDS: PANTOPRAZOLE 40 MG TABLET PO SCH (06:10)
[2017-08-06 06:30] LABS: Glucose,Whole Blood 136 mg/dL (75-99)
[2017-08-06 06:30] LABS: Glucose,Whole Blood 149 mg/dL (75-99)
[2017-08-06] MEDS: INSULIN ASPART 100 UNIT/ML 1 ML 10 ML VIAL SQ SCH ×4 (06:35→21:38)
[2017-08-06 06:54] LABS: Basophils % (A) 0 %; Eosinophils % (A) 0 %; HCT 37.7 % (34.0-46.0); HGB 11.1 gm/dL (11.4-16.0); Hypochromasia Slight; Lymphocytes # (A) 0.3 k/uL (1.0-4.8); Lymphocytes % (A) 2 %; MCH 25.9 pg (25.0-35.0); MCHC 29.4 g/dL (31.0-37.0); MCV 88.3 fL (80.0-100.0); Mean Platelet Volume 6.9; Monocytes # (A) 0.4 k/uL (0-1.0); Monocytes % (A) 3 %; Neutrophils # (A) 14.4 k/uL (1.3-7.7); Neutrophils % (A) 95 %; Platelet Count 235 k/uL (150-450); RBC 4.27 m/uL (3.80-5.40); RDW 15.6 % (11.5-15.5); WBC 15.2 k/uL (3.8-10.6)
[2017-08-06 07:05] LABS: Magnesium 2.5 mg/dL (1.6-2.3); Total Bilirubin 0.6 mg/dL (0.2-1.3); Total Protein 5.5 g/dL (6.3-8.2)
[2017-08-06] MEDS ORDERED: Potassium Replacement Protocol 1 EACH MISC MISCELLANE PRN (07:52)
[2017-08-06] MEDS: CHOLECALCIFEROL 1,000 UNIT TAB PO SCH (08:14)
[2017-08-06] MEDS: amLODIPine 5 MG TAB PO SCH (08:14)
[2017-08-06] MEDS: acetaZOLAMIDE 250 MG TAB PO SCH (08:14)
[2017-08-06] MEDS: ASPIRIN 81 MG PO SCH (08:14)
[2017-08-06] MEDS: ESCITALOPRAM 10 MG TAB PO SCH (08:15)
[2017-08-06] MEDS: FUROSEMIDE 10 MG/ML 4 ML VIAL IV SCH (08:15)
[2017-08-06] MEDS: FLUCONAZOLE 100 MG TAB PO SCH (08:15)
[2017-08-06] MEDS: DULoxetine HCL 60 MG CAPSULE.DR PO SCH ×2 (08:15→20:06)
[2017-08-06] MEDS: ENOXAPARIN 40 MG/0.4 ML SYRINGE SQ SCH (08:15)
[2017-08-06] MEDS: guaiFENesin 600 MG TABLET.ER PO SCH ×2 (08:16→20:06)
[2017-08-06] MEDS: GABAPENTIN 100 MG CAP PO SCH ×2 (08:16→20:05)
[2017-08-06] MEDS: LORATADINE 10 MG TAB PO SCH (08:16)
[2017-08-06] MEDS: NALDEMEDINE TOSYLATE 0.2 MG PO SCH (08:17)
[2017-08-06] MEDS: METOPROLOL SUCCINATE (ER) 25 MG TAB.ER.24H PO SCH (08:17)
[2017-08-06] MEDS: SENNOSIDES-DOCUSATE SODIUM 1 EACH TAB PO SCH ×2 (08:18→20:05)
[2017-08-06] MEDS: TOPIRAMATE 25 MG TAB PO SCH ×2 (08:19→20:05)
[2017-08-06] MEDS: ESCITALOPRAM 5 MG TAB PO SCH (08:19)
[2017-08-06] MEDS: ALPRAZolam 0.25 MG TAB PO SCH ×3 (08:37→22:27)
[2017-08-06] MEDS: HYDROcodone/APAP 7.5-325MG 1 EACH TAB PO SCH ×2 (08:37→21:35)
[2017-08-06] MEDS: POTASSIUM CHLORIDE 10 MEQ in WATER FOR INJECTION 1 100ML.BAG IVPB SCH (08:38)
[2017-08-06] MEDS: PIPERACILLIN-TAZOBACTAM 3.375 GM in DEXTROSE/WATER 1 50ML.BAG IVPB SCH ×3 (08:38→23:17)
[2017-08-06] MEDS: FORMOTEROL FUMARATE 20 MCG/2 ML NEBU INHALATION SCH ×2 (08:56→20:42)
[2017-08-06] MEDS: BUDESONIDE 1 MG/2 ML NEBU INHALATION SCH ×2 (08:56→20:42)
[2017-08-06] MEDS: IPRATROPIUM-ALBUTEROL 3 ML NEB INHALATION SCH ×4 (08:56→20:42)
[2017-08-06] MEDS ORDERED: predniSONE 10 MG TAB PO SCH (09:00)
[2017-08-06] MEDS ORDERED: FUROSEMIDE 10 MG/ML 4 ML VIAL IV SCH (11:47)
[2017-08-06 12:14] LABS: Glucose,Whole Blood 142 mg/dL (75-99)
[2017-08-06] MEDS ORDERED: FUROSEMIDE 10 MG/ML 10 ML VIAL IV SCH (12:15)
--- NOTE | 2017-08-06 12:33 | P.PN ---
Subjective Progress Note Date: 08/06/17 This is a 77-year-old female with history of severe pulmonary hypertension, severe P COPD and recurrent episodes of COPD exacerbation who was recently discharged home on the of this month. She was seen in consultation by Dr. Isbell yesterday. He presented this admission with complaints of worsening shortness of breath, drop in oxygenation and respiratory distress. We were asked to the patient in consultation due to mildly elevated troponins. We ordered a d-dimer to be done yesterday which came back to be negative. Upon examination today, patient is resting in bed. Her only complaint is of constipation and some abdominal discomfort. She did undergo an abdominal x-ray yesterday with impression correlate for fecal stasis , impaction. She feels her breathing is much improved denies any chest discomfort or palpitations and has no dizziness or lightheadedness. Laboratory values are reviewed and showed hemoglobin 11.1, potassium 3.0 and creatinine of 0.9. Objective - Vital Signs Vital signs: Vital Signs Temp 98.8 F 08/06/17 08:00 Pulse 88 08/06/17 09:19 Resp 16 08/06/17 08:00 BP 152/86 08/06/17 08:00 Pulse Ox 95 08/06/17 08:00 Intake & Output 08/05/17 08/06/17 08/06/17 18:59 06:59 18:59 Intake Total 1270 460 Output Total 0 Balance 1270 460 Weight 93 kg Intake: IV 110 0.9 110 Intake, IV Titration 50 50 Amount Piperacillin-Tazobactam 3 50 50 .375 gm In Dextrose/Water 1 50ml.bag @ 12.5 mls/hr IVPB Q8HR [facility] Rx#: [id number] Oral 1220 300 Output: Urine 0 Other: Voiding Method Bedpan Bedpan Bedpan Diaper Diaper Incontinent Incontinent # Voids 2 2 # Bowel Movements 1 2 - Exam PHYSICAL EXAMINATION: HEENT: Head is atraumatic, normocephalic. Pupils equal, round. Neck is supple. There is no elevated jugular venous pressure. HEART EXAMINATION: Heart sounds regular, S1 and S2 normal. No murmur or gallop heard. CHEST EXAMINATION: Lungs reveal diminished air entry bilaterally. No chest wall tenderness is noted on palpation or with deep breathing. ABDOMEN: Soft, obese, nontender. Bowel sounds are heard. No organomegaly noted. EXTREMITIES: 2+ peripheral pulses with no evidence of peripheral edema and no calf tenderness noted. NEUROLOGIC patient is awake, alert and oriented x3. . - Labs CBC & Chem 7: 08/06/17 06:23 08/06/17 06:23 Labs: Abnormal Lab Results - Last 24 Hours (Table) 08/05/17 08/05/17 08/05/17 Range/Units 12:08 16:33 20:53 WBC (3.8-10.6) k/uL Hgb (11.4-16.0) gm/dL MCHC (31.0-37.0) g/dL RDW (11.5-15.5) % Neutrophils # (1.3-7.7) k/uL Lymphocytes # (1.0-4.8) k/uL Sodium (137-145) mmol/L Potassium (3.5-5.1) mmol/L Chloride (98-107) mmol/L Carbon Dioxide (22-30) mmol/L BUN (7-17) mg/dL Glucose (74-99) mg/dL POC Glucose (mg/dL) 163 H 170 H 117 H (75-99) mg/dL Magnesium (1.6-2.3) mg/dL Total Protein (6.3-8.2) g/dL Albumin (3.5-5.0) g/dL 08/06/17 08/06/17 08/06/17 Range/Units 06:14 06:23 06:23 WBC 15.2 H (3.8-10.6) k/uL Hgb 11.1 L (11.4-16.0) gm/dL MCHC 29.4 L (31.0-37.0) g/dL RDW 15.6 H (11.5-15.5) % Neutrophils # 14.4 H (1.3-7.7) k/uL Lymphocytes # 0.3 L (1.0-4.8) k/uL Sodium 136 L (137-145) mmol/L Potassium 3.0 L* (3.5-5.1) mmol/L Chloride 91 L (98-107) mmol/L Carbon Dioxide 35 H (22-30) mmol/L BUN 36 H (7-17) mg/dL Glucose 135 H (74-99) mg/dL POC Glucose (mg/dL) 149 H (75-99) mg/dL Magnesium 2.5 H (1.6-2.3) mg/dL Total Protein 5.5 L (6.3-8.2) g/dL Albumin 3.0 L (3.5-5.0) g/dL 08/06/17 Range/Units 06:28 WBC (3.8-10.6) k/uL Hgb (11.4-16.0) gm/dL MCHC (31.0-37.0) g/dL RDW (11.5-15.5) % Neutrophils # (1.3-7.7) k/uL Lymphocytes # (1.0-4.8) k/uL Sodium (137-145) mmol/L Potassium (3.5-5.1) mmol/L Chloride (98-107) mmol/L Carbon Dioxide (22-30) mmol/L BUN (7-17) mg/dL Glucose (74-99) mg/dL POC Glucose (mg/dL) 136 H (75-99) mg/dL Magnesium (1.6-2.3) mg/dL Total Protein (6.3-8.2) g/dL Albumin (3.5-5.0) g/dL Assessment and Plan Assessment: #1 acute worsening of chronic shortness of breath, negative d-dimer, likely secondary to chronic obstructive pulmonary disease exacerbation #2 severe pulmonary hypertension #3 history of chronic diastolic congestive heart failure #4 hypertension Plan: From cardiology's perspective, medications were reviewed and we will switch to by mouth Lasix. Replace potassium. We will follow the patient on an as-needed basis. Please hesitate to contact us with questions. The above dictated assessment and findings were discussed with signing physician. The impression and plan of care have been directed as dictated. Shira Warren, Nurse Practitioner, acting as scribe for signing physician.
[2017-08-06] MEDS: POTASSIUM CHLORIDE ER 20 MEQ TAB.ER PO SCH (12:37)
[2017-08-06] MEDS: FUROSEMIDE 10 MG/ML 10 ML VIAL IV SCH ×2 (12:38→20:04)
--- NOTE | 2017-08-06 13:04 | XR ---
EXAMINATION TYPE: XR abdomen 1V , 2 VIEWS DATE OF EXAM ORDERED: 08/06/2017 HISTORY: impaction. COMPARISON: Previous study dated 08/05/2017. FINDINGS: There is a left hip arthroplasty in place. The abdominal gas pattern is nonspecific with nondistended air-filled loops of large and small bowel throughout the abdomen. There is no evidence of obstruction or free air. There is stool overlying the rectum. IMPRESSION: NONSPECIFIC ABDOMINAL PICTURE.
--- NOTE | 2017-08-06 13:15 | P.PN ---
Subjective Progress Note Date: 08/06/17 Principal diagnosis: Shortness of breath Progress note dated 08/06/2017 This is a 77-year-old bedbound woman with complaints of shortness of breath, secondary to both overload and COPD exacerbation. She has a history of acute on chronic hypoxemic and hypercapnic respiratory failure congestive heart failure GERD hyperlipidemia hypertension sleep apnea syndrome currently on BiPAP , degenerative joint disease hypothyroidism previous episode of respiratory failure with prolonged mechanical ventilation status post tracheostomy tube and PEG tube, history of vancomycin-resistant enterococci and Proteus mirabilis urinary tract infections, vitamin D deficiency, morbid obesity, generalized anxiety disorder and multiple other medical problems and comorbidities. Today, the patient states that her breathing is just fine. She remains on nasal O2. She states that she is feeling a lot of tenderness and pain in her abdominal area and does not want anybody to touch it. She states that she was given a suppository yesterday. The patient is a permanent resident at [facility]. She apparently is been bedbound for more than 10 years. Objective - Vital Signs Vital signs: Vital Signs Temp 98.8 F 08/06/17 08:00 Pulse 90 08/06/17 12:00 Resp 16 08/06/17 12:00 BP 123/57 08/06/17 12:00 Pulse Ox 93 L 08/06/17 12:00 Intake & Output 08/05/17 08/06/17 08/06/17 18:59 06:59 18:59 Intake Total 1270 460 Output Total 0 Balance 1270 460 Weight 93 kg Intake: IV 110 0.9 110 Intake, IV Titration 50 50 Amount Piperacillin-Tazobactam 3 50 50 .375 gm In Dextrose/Water 1 50ml.bag @ 12.5 mls/hr IVPB Q8HR [facility] Rx#: [id number] Oral 1220 300 Output: Urine 0 Other: Voiding Method Bedpan Bedpan Bedpan Diaper Diaper Incontinent Incontinent # Voids 2 2 # Bowel Movements 1 2 - Exam No acute distress, oriented 3. Nasal O2 in place. HEENT examination is grossly unremarkable. Mucous membranes are moist. No oral lesions. Neck supple. Full range of motion. No adenopathy thyromegaly or neck vein distention. Cardiovascular examination reveals regular rhythm rate. S1-S2 normal. No S3 or S4. No discernible murmur noted. Lungs reveal mostly clear breath sounds. A few scattered crackles at the bases. No wheezes or rhonchi. Breath sounds are equal bilaterally. Abdomen is mildly distended. She complains of pain on palpation. Extremities are intact. No cyanosis or clubbing. 1+ pitting edema noted. Skin is without rash or lesion. Neurologic examination is brief but nonfocal. - Labs CBC & Chem 7: 08/06/17 06:23 08/06/17 06:23 Labs: Abnormal Lab Results - Last 24 Hours (Table) 08/05/17 08/05/17 08/06/17 Range/Units 16:33 20:53 06:14 WBC (3.8-10.6) k/uL Hgb (11.4-16.0) gm/dL MCHC (31.0-37.0) g/dL RDW (11.5-15.5) % Neutrophils # (1.3-7.7) k/uL Lymphocytes # (1.0-4.8) k/uL Sodium (137-145) mmol/L Potassium (3.5-5.1) mmol/L Chloride (98-107) mmol/L Carbon Dioxide (22-30) mmol/L BUN (7-17) mg/dL Glucose (74-99) mg/dL POC Glucose (mg/dL) 170 H 117 H 149 H (75-99) mg/dL Magnesium (1.6-2.3) mg/dL Total Protein (6.3-8.2) g/dL Albumin (3.5-5.0) g/dL 08/06/17 08/06/17 08/06/17 Range/Units 06:23 06:23 06:28 WBC 15.2 H (3.8-10.6) k/uL Hgb 11.1 L (11.4-16.0) gm/dL MCHC 29.4 L (31.0-37.0) g/dL RDW 15.6 H (11.5-15.5) % Neutrophils # 14.4 H (1.3-7.7) k/uL Lymphocytes # 0.3 L (1.0-4.8) k/uL Sodium 136 L (137-145) mmol/L Potassium 3.0 L* (3.5-5.1) mmol/L Chloride 91 L (98-107) mmol/L Carbon Dioxide 35 H (22-30) mmol/L BUN 36 H (7-17) mg/dL Glucose 135 H (74-99) mg/dL POC Glucose (mg/dL) 136 H (75-99) mg/dL Magnesium 2.5 H (1.6-2.3) mg/dL Total Protein 5.5 L (6.3-8.2) g/dL Albumin 3.0 L (3.5-5.0) g/dL 08/06/17 Range/Units 12:12 WBC (3.8-10.6) k/uL Hgb (11.4-16.0) gm/dL MCHC (31.0-37.0) g/dL RDW (11.5-15.5) % Neutrophils # (1.3-7.7) k/uL Lymphocytes # (1.0-4.8) k/uL Sodium (137-145) mmol/L Potassium (3.5-5.1) mmol/L Chloride (98-107) mmol/L Carbon Dioxide (22-30) mmol/L BUN (7-17) mg/dL Glucose (74-99) mg/dL POC Glucose (mg/dL) 142 H (75-99) mg/dL Magnesium (1.6-2.3) mg/dL Total Protein (6.3-8.2) g/dL Albumin (3.5-5.0) g/dL Assessment and Plan Assessment: Assessment Shortness of breath, likely multifactorial, in part related to underlying mild fluid overload as well as COPD exacerbation. Acute on chronic hypoxemic and hypercapnic respiratory failure History of CHF History of GERD History of hyperlipidemia History of hypertension Sleep apnea syndrome, currently on home BiPAP therapy DJD Hypothyroidism Previous episode of respiratory failure with prolonged mechanical ventilation, status post tracheostomy tube and PEG tube placement History of vancomycin-resistant enterococci and Proteus mirabilis urinary tract infections Vitamin D deficiency Morbid obesity. Generalized anxiety disorder Multiple other medical problems and comorbidities Plan: Plan dated 08/04/2017 The patient's medications are reviewed. X-rays and labs are reviewed. She has a history of chronic well compensated hypercapnia. She likely has pretty significant COPD and/or sleep apnea syndrome and/or pickwickian syndrome. The patient's feeling much better today. Her breathing is much improved. Chest x- ray shows cardiomegaly and some mild vascular congestion. A BNP was not done. Medications reviewed. Adjustments are made. Plan dated 08/06/2017 From the pulmonary standpoint, the patient is doing very well. Denies any difficulty breathing coughing wheezing or shortness of breath. Not coughing up any phlegm or blood. No fever or chills. Her biggest complaint today is the fact that she has pain in the abdomen. An abdominal x-ray was done in that will be explored by the primary service. She is stable from the pulmonary service. No additional recommendations are made. Time with Patient: Less than 30
--- NOTE | 2017-08-06 15:36 | P.PN ---
Subjective Progress Note Date: 08/06/17 77-year-old female patient of Dr. Elizabeth currently residing at [facility] with past medical history COPD on 4 L Oxygen , hypertension, obstructive sleep apnea on BiPAP at nighttime, chronic pain, gastric esophageal reflux disease, hypothyroidism, ALLERGIC rhinitis, osteoarthritis, idiopathic peripheral autonomic neuropathy, chronic urinary tract infections, vitamin D deficiency, morbid obesity, bed bound forthe past 13 years, h/o prolonged intubation leading to tracheostomy which was finally removed, has been bedbound ever seen. Patient was just discharged on 07/27 to [facility] after treating her for acute hypoxic respiratory failure from bilateral lower lobe pneumonia with accompanying of tracheobronchitis for COPD exacerbation. Patient was also treated for acute diastolic heart failure during that admission. On discharge patient was back on her baseline of 4 L. According to the daughter patient was gradually uptitrated on her oxygen in the last few days. She was coughing up since discharge and has not gotten better since discharge. Patient endorses chills denies fever. She does feel short of breath and productive cough with greenish in color. Patient denies any history of DVT or pulmonary embolism in the past. She appears to be mentating well. Currently requiring 10 L of high flow on the oxygen. Vitals otherwise is stable with blood pressure 114/55, afebrile tachypneic to 20. Labs suggestive a leukocytosis of 20, d-dimer was normal. ABG was conducted this morning suggested a CO2 of 63 and pO2 114 at FiO2 of 60%. Influenza was negative 08/05: Patient has been refusing to be turned in bed during the night. Specialty mattress ordered. Patient is also refusing to do incentive spirometry. Patient has had no bowel movement is is feeling constipated. She is starting on MiraLAX and Senokot. Dulcolax suppository will be added. Patient does have some abdominal distention and x-rays will be requested. Cardiology is following the patient with no change in medications. They are now following the patient on an as-needed basis. Pulmonary medicine is also on consult. Discussed with patient the need to cooperate with the nurses to prevent further breakdown in her skin. Patient has a stage II decubitus ulcer to the coccyx area. Patient is followed by both cardiology and pulmonary medicine. No medication changes made today. Patient is continued on Solu- Medrol 60 mg IV every 6 hours. She is on IV vancomycin and Zosyn. Daughter is at the bedside and all questions of been answered. 08/06. Patient examined bedside. Still requiring 8 L of high flow oxygen. Patient did have a large bowel movement in response to Dulcolax suppository. Patient underwent abdominal x-ray that concern for fecal impaction. Patient complains of increased abdominal tenderness since her last bowel movement. Repeat abdominal x-ray was ordered to rule out obstruction which is negative. Surgery consult for any further recommendation on impaction which appears to be resolved. We will repeat a Dulcolax suppository today for fecal stasis. Increased Lasix dose to 60 IV twice a day. Continue Zosyn and hold vancomycin. Sputum culture pending Objective - Vital Signs Vital signs: Vital Signs Temp 98.8 F 08/06/17 08:00 Pulse 90 08/06/17 12:00 Resp 16 08/06/17 12:00 BP 123/57 08/06/17 12:00 Pulse Ox 93 L 08/06/17 12:00 Intake & Output 08/05/17 08/06/17 08/06/17 18:59 06:59 18:59 Intake Total 1270 460 570 Output Total 0 Balance 1270 460 570 Weight 93 kg Intake: IV 110 250 0.9 110 Vancomycin 1,500 mg In 250 Sodium Chloride 0.9% 250 ml @ 125 mls/hr IVPB Q24H [facility] Rx#:[id number] Intake, IV Titration 50 50 200 Amount Piperacillin-Tazobactam 3 50 50 .375 gm In Dextrose/Water 1 50ml.bag @ 12.5 mls/hr IVPB Q8HR [facility] Rx#: [id number] Potassium Chloride 10 meq 200 In Water For Injection 1 100ml.bag @ 100 mls/hr IVPB Q1H [facility] Rx#: [id number] Oral 1220 300 120 Output: Urine 0 Other: Voiding Method Bedpan Bedpan Bedpan Diaper Diaper Incontinent Incontinent # Voids 2 2 # Bowel Movements 1 2 - Exam - Exam General appearance: cooperative, no acute distress, obese on 10 L high flow nasal cannula though comfortable - EENT Eyes: anicteric sclerae, PERRLA, normal appearance ENT: hearing grossly normal - Neck Neck: no lymphadenopathy, normal ROM, no other, no rigidity, no stridor, no thyromegaly - Respiratory Respiratory: Equal air entry with wheezes few rhonchi appears congested on examination - Cardiovascular Rhythm: regular Heart sounds: normal: S1, S2 Abnormal Heart Sounds: no systolic murmur, no diastolic murmur, no rub, no S3 Gallop, no S4 Gallop, no click, no other - Gastrointestinal General gastrointestinal: normal bowel sounds, soft, tender diffusely, no guarding or rigidity - Integumentary Integumentary: no rash, bruising from IV site Musculoskeletal: Does have contractures bilateral upper and lower extremity - Labs CBC & Chem 7: 08/06/17 06:23 08/06/17 06:23 Labs: Abnormal Lab Results - Last 24 Hours (Table) 08/05/17 08/05/17 08/06/17 Range/Units 16:33 20:53 06:14 WBC (3.8-10.6) k/uL Hgb (11.4-16.0) gm/dL MCHC (31.0-37.0) g/dL RDW (11.5-15.5) % Neutrophils # (1.3-7.7) k/uL Lymphocytes # (1.0-4.8) k/uL Sodium (137-145) mmol/L Potassium (3.5-5.1) mmol/L Chloride (98-107) mmol/L Carbon Dioxide (22-30) mmol/L BUN (7-17) mg/dL Glucose (74-99) mg/dL POC Glucose (mg/dL) 170 H 117 H 149 H (75-99) mg/dL Magnesium (1.6-2.3) mg/dL Total Protein (6.3-8.2) g/dL Albumin (3.5-5.0) g/dL 08/06/17 08/06/17 08/06/17 Range/Units 06:23 06:23 06:28 WBC 15.2 H (3.8-10.6) k/uL Hgb 11.1 L (11.4-16.0) gm/dL MCHC 29.4 L (31.0-37.0) g/dL RDW 15.6 H (11.5-15.5) % Neutrophils # 14.4 H (1.3-7.7) k/uL Lymphocytes # 0.3 L (1.0-4.8) k/uL Sodium 136 L (137-145) mmol/L Potassium 3.0 L* (3.5-5.1) mmol/L Chloride 91 L (98-107) mmol/L Carbon Dioxide 35 H (22-30) mmol/L BUN 36 H (7-17) mg/dL Glucose 135 H (74-99) mg/dL POC Glucose (mg/dL) 136 H (75-99) mg/dL Magnesium 2.5 H (1.6-2.3) mg/dL Total Protein 5.5 L (6.3-8.2) g/dL Albumin 3.0 L (3.5-5.0) g/dL 08/06/17 Range/Units 12:12 WBC (3.8-10.6) k/uL Hgb (11.4-16.0) gm/dL MCHC (31.0-37.0) g/dL RDW (11.5-15.5) % Neutrophils # (1.3-7.7) k/uL Lymphocytes # (1.0-4.8) k/uL Sodium (137-145) mmol/L Potassium (3.5-5.1) mmol/L Chloride (98-107) mmol/L Carbon Dioxide (22-30) mmol/L BUN (7-17) mg/dL Glucose (74-99) mg/dL POC Glucose (mg/dL) 142 H (75-99) mg/dL Magnesium (1.6-2.3) mg/dL Total Protein (6.3-8.2) g/dL Albumin (3.5-5.0) g/dL Assessment and Plan Plan: 1. Acute respiratory insufficiency secondary to acute on chronic diastolic heart failure and COPD exacerbation/ acute bronchitis with healthcare associated pneumonia as patient was recently treated in the hospital . Patient was treated with Levaquin in the last admission. Will switch antibiotic to vancomycin and Zosyn. On Lasix 40 mg IV push every 12 hours, sputum culture, blood culture, pulmonary consultation. Echocardiogram 2017 reveals EF of 55 -60% with concentric left ventricular hypertrophy, severe pulmonary hypertension, mild mitral regurgitation, severe tricuspid regurgitation. continue DuoNeb 3 mL nebulization 4 times every day. Continue Solu-Medrol 60 IV every 6 hours Monitor the patient weight on a daily basis. patient's presentation is her severe pulmonary hypertension likely secondary to hypoventilation, patient may need increasing amount of oxygen in the next few years. 2. Acute on chronic diastolic heart failure. Continue Toprol-XL 25 mg orally once every day, continue patient on Lasix 60 mg IV push every 12 hours, continue to monitor input and output and daily weight 3. Morbid obesity with PALMIRA - continue Bipap in the night 4 Medical debility, bedbound . Physical therapy evaluation, discharge to [facility] once patient stabilizes 5. GERD. Continue Protonix 40 mg orally once every day. 6. Hypertension and hypertensive cardiovascular disease. Continue Toprol-XL 25 mg orally once every day, amlodipine 5 mg orally once every day. 7. Hyperlipidemia. Low-cholesterol diet. 8. Hypothyroidism. Continue Synthroid 125 g orally once every day. 9. Peripheral neuropathy. Continue gabapentin 200 mg orally twice every day. 10. Depressive disorder. Continue patient on Cymbalta 60 mg orally once every day and Lexapro 10 mg orally once every day. 11. Osteoarthritis with joint deformities including the right hand as well as bilateral lower extremity's. History of prolonged hospitialisation including intubation with developmont of significant paraparesis of both lower extremities with significant deformity of the right wrist. 12. Anxiety disorder. Continue patient on Lexapro 10 mg orally once every day. 13. ALLERGIC rhinitis. Continue patient on Claritin 10 mg orally once every day. 14. DVT prophylaxis. Continue Lovenox 40 mg subcutaneously every 24 hours. 15. GI prophylaxis. Continue Protonix 40 mg orally once every day. 16. Patient is full code. Estimate a length of stay 2 midnights. 17. Admit to inpatient. 18. Fecal impaction status post Dulcolax suppository. Repeat Dulcolax suppository today. Surgery consult
[2017-08-06] MEDS ORDERED: BISACODYL 10 MG SUPP RECTAL STA (16:13)
[2017-08-06 17:13] LABS: Glucose,Whole Blood 173 mg/dL (75-99)
[2017-08-06] MEDS: QUEtiapine 25 MG TAB PO SCH (20:05)
[2017-08-06] MEDS: POLYETHYLENE GLYCOL 3350 17 GM POWD.PACK PO SCH (20:06)
[2017-08-06] MEDS: MELATONIN 5 MG TABLET PO SCH (20:06)
[2017-08-06 21:01] LABS: Glucose,Whole Blood 197 mg/dL (75-99)
[2017-08-07] MEDS ORDERED: VANCOMYCIN TROUGH DUE 1 EACH MISC MISCELLANE ONE (05:00)
[2017-08-07 06:23] LABS: Glucose,Whole Blood 153 mg/dL (75-99)
[2017-08-07] MEDS: methylPREDNISolone SOD SUCCI 125 MG/2 ML VIAL IV SCH ×4 (06:31→23:10)
[2017-08-07] MEDS: INSULIN ASPART 100 UNIT/ML 1 ML 10 ML VIAL SQ SCH ×4 (06:31→22:10)
[2017-08-07] MEDS: PANTOPRAZOLE 40 MG TABLET PO SCH (06:31)
[2017-08-07 06:54] LABS: Albumin 3.1 g/dL (3.5-5.0); Calcium 9.3 mg/dL (8.4-10.2); Magnesium 2.5 mg/dL (1.6-2.3); Potassium 4.4 mmol/L (3.5-5.1); Total Bilirubin 0.6 mg/dL (0.2-1.3); Total Protein 5.5 g/dL (6.3-8.2)
[2017-08-07 07:07] LABS: Basophils % (A) 0 %; Eosinophils % (A) 0 %; HCT 36.8 % (34.0-46.0); HGB 11.5 gm/dL (11.4-16.0); Hypochromasia Slight; Lymphocytes # (A) 0.3 k/uL (1.0-4.8); Lymphocytes % (A) 2 %; MCH 27.8 pg (25.0-35.0); MCHC 31.3 g/dL (31.0-37.0); MCV 88.6 fL (80.0-100.0); Mean Platelet Volume 7.5; Monocytes # (A) 0.4 k/uL (0-1.0); Monocytes % (A) 2 %; Neutrophils % (A) 96 %; Platelet Count 208 k/uL (150-450); RBC 4.16 m/uL (3.80-5.40); RDW 15.2 % (11.5-15.5); WBC 15.7 k/uL (3.8-10.6)
[2017-08-07] MEDS: PIPERACILLIN-TAZOBACTAM 3.375 GM in DEXTROSE/WATER 1 50ML.BAG IVPB SCH ×3 (08:14→23:11)
[2017-08-07] MEDS: LEVOTHYROXINE 125 MCG TAB PO SCH (08:14)
[2017-08-07] MEDS: IPRATROPIUM-ALBUTEROL 3 ML NEB INHALATION SCH ×4 (08:22→20:31)
[2017-08-07] MEDS: BUDESONIDE 1 MG/2 ML NEBU INHALATION SCH ×2 (08:22→20:31)
[2017-08-07] MEDS: FORMOTEROL FUMARATE 20 MCG/2 ML NEBU INHALATION SCH ×2 (08:22→20:31)
[2017-08-07] MEDS: HYDROcodone/APAP 7.5-325MG 1 EACH TAB PO SCH ×2 (08:24→22:04)
[2017-08-07] MEDS: ALPRAZolam 0.25 MG TAB PO SCH ×3 (08:24→22:05)
[2017-08-07] MEDS: GABAPENTIN 100 MG CAP PO SCH ×2 (09:59→22:03)
[2017-08-07] MEDS: METOPROLOL SUCCINATE (ER) 25 MG TAB.ER.24H PO SCH (09:59)
[2017-08-07] MEDS: FUROSEMIDE 10 MG/ML 10 ML VIAL IV SCH ×2 (09:59→22:10)
[2017-08-07] MEDS: FLUCONAZOLE 100 MG TAB PO SCH (10:00)
[2017-08-07] MEDS: POTASSIUM CHLORIDE ER 20 MEQ TAB.ER PO SCH (10:00)
[2017-08-07] MEDS: guaiFENesin 600 MG TABLET.ER PO SCH ×2 (10:00→22:05)
[2017-08-07] MEDS: acetaZOLAMIDE 250 MG TAB PO SCH (10:01)
[2017-08-07] MEDS: ESCITALOPRAM 10 MG TAB PO SCH (10:01)
[2017-08-07] MEDS: SENNOSIDES-DOCUSATE SODIUM 1 EACH TAB PO SCH ×2 (10:01→22:05)
[2017-08-07] MEDS: ESCITALOPRAM 5 MG TAB PO SCH (10:01)
[2017-08-07] MEDS: TOPIRAMATE 25 MG TAB PO SCH ×2 (10:01→22:03)
[2017-08-07] MEDS: CHOLECALCIFEROL 1,000 UNIT TAB PO SCH (10:01)
[2017-08-07] MEDS: DULoxetine HCL 60 MG CAPSULE.DR PO SCH ×2 (10:01→22:03)
[2017-08-07] MEDS: ENOXAPARIN 40 MG/0.4 ML SYRINGE SQ SCH (10:02)
[2017-08-07] MEDS: amLODIPine 5 MG TAB PO SCH (10:02)
[2017-08-07] MEDS: ASPIRIN 81 MG PO SCH (10:02)
[2017-08-07] MEDS: BISACODYL 10 MG SUPP RECTAL SCH (10:02)
[2017-08-07] MEDS: LORATADINE 10 MG TAB PO SCH (10:02)
[2017-08-07] MEDS: NALDEMEDINE TOSYLATE 0.2 MG PO SCH (10:03)
--- NOTE | 2017-08-07 10:28 | P.PN ---
Subjective Progress Note Date: 08/07/17 Principal diagnosis: Shortness of breath Progress note dated 08/06/2017 This is a 77-year-old bedbound woman with complaints of shortness of breath, secondary to both overload and COPD exacerbation. She has a history of acute on chronic hypoxemic and hypercapnic respiratory failure congestive heart failure GERD hyperlipidemia hypertension sleep apnea syndrome currently on BiPAP , degenerative joint disease hypothyroidism previous episode of respiratory failure with prolonged mechanical ventilation status post tracheostomy tube and PEG tube, history of vancomycin-resistant enterococci and Proteus mirabilis urinary tract infections, vitamin D deficiency, morbid obesity, generalized anxiety disorder and multiple other medical problems and comorbidities. Today, the patient states that her breathing is just fine. She remains on nasal O2. She states that she is feeling a lot of tenderness and pain in her abdominal area and does not want anybody to touch it. She states that she was given a suppository yesterday. The patient is a permanent resident at [facility] the [facility]. She apparently is been bedbound for more than 10 years. Progress note dated 08/07/2017 This is a 77-year-old female with history of shortness of breath, likely secondary to fluid overload as well as COPD exacerbation. She has a history of acute on chronic hypoxemic and hypercapnic respiratory failure, CHF, severe immobility and being bedbound for more than 10 years, GERD, hyperlipidemia, hypertension, sleep apnea syndrome, DJD, hypothyroidism, previous episode of respiratory failure with prolonged mechanical ventilation status post tracheostomy and PEG tube placement, vancomycin-resistant enterococci and Proteus mirabilis UTIs, vitamin D deficiency, morbid obesity, generalized anxiety disorder and multiple other medical problems and comorbidities. The patient is quite debilitated. She is feeling a bit better. Her belly pain which is her major concern yesterday has improved somewhat. She denies any chest pain or chest discomfort. No shortness of breath. She is wearing nasal oxygen. She is a permanent resident at one of the senior living in [place] [facility]. Objective - Vital Signs Vital signs: Vital Signs Temp 98.5 F 08/07/17 03:27 Pulse 92 08/07/17 08:45 Resp 16 08/07/17 07:59 BP 131/80 08/07/17 07:55 Pulse Ox 98 08/07/17 07:55 Intake & Output 08/06/17 08/07/17 08/07/17 18:59 06:59 18:59 Intake Total 808 370 240 Output Total 2 Balance 808 368 240 Weight 95 kg Intake: IV 250 Vancomycin 1,500 mg In 250 Sodium Chloride 0.9% 250 ml @ 125 mls/hr IVPB Q24H [facility] Rx#:[id number] Intake, IV Titration 200 Amount Potassium Chloride 10 meq 200 In Water For Injection 1 100ml.bag @ 100 mls/hr IVPB Q1H [facility] Rx#: [id number] Oral 358 370 240 Output: Stool 2 Other: Voiding Method Bedpan Bedpan Bedpan Diaper Diaper Diaper Incontinent Incontinent Incontinent # Voids 1 1 # Bowel Movements 1 - Exam No acute distress, oriented 3. Nasal O2 in place. HEENT examination is grossly unremarkable. Mucous membranes are moist. No oral lesions. Neck supple. Full range of motion. No adenopathy thyromegaly or neck vein distention. Cardiovascular examination reveals regular rhythm rate. S1-S2 normal. No S3 or S4. No discernible murmur noted. Lungs reveal mostly clear breath sounds. A few scattered crackles at the bases. No wheezes or rhonchi. Breath sounds are equal bilaterally. Abdomen is mildly distended. She complains of pain on palpation. Extremities are intact. No cyanosis or clubbing. 1+ pitting edema noted. Skin is without rash or lesion. Neurologic examination is brief but nonfocal. - Labs CBC & Chem 7: 08/07/17 06:11 08/07/17 06:11 Labs: Abnormal Lab Results - Last 24 Hours (Table) 08/06/17 08/06/17 08/06/17 Range/Units 12:12 17:11 20:59 WBC (3.8-10.6) k/uL Neutrophils # (1.3-7.7) k/uL Lymphocytes # (1.0-4.8) k/uL Sodium (137-145) mmol/L Chloride (98-107) mmol/L Carbon Dioxide (22-30) mmol/L BUN (7-17) mg/dL Glucose (74-99) mg/dL POC Glucose (mg/dL) 142 H 173 H 197 H (75-99) mg/dL Magnesium (1.6-2.3) mg/dL Alkaline Phosphatase (38-126) U/L Total Protein (6.3-8.2) g/dL Albumin (3.5-5.0) g/dL 08/07/17 08/07/17 08/07/17 Range/Units 06:11 06:11 06:19 WBC 15.7 H (3.8-10.6) k/uL Neutrophils # 15.0 H (1.3-7.7) k/uL Lymphocytes # 0.3 L (1.0-4.8) k/uL Sodium 136 L (137-145) mmol/L Chloride 89 L (98-107) mmol/L Carbon Dioxide 35 H (22-30) mmol/L BUN 42 H (7-17) mg/dL Glucose 125 H (74-99) mg/dL POC Glucose (mg/dL) 153 H (75-99) mg/dL Magnesium 2.5 H (1.6-2.3) mg/dL Alkaline Phosphatase 37 L (38-126) U/L Total Protein 5.5 L (6.3-8.2) g/dL Albumin 3.1 L (3.5-5.0) g/dL Assessment and Plan Assessment: Assessment Shortness of breath, likely multifactorial, in part related to underlying mild fluid overload as well as COPD exacerbation. Acute on chronic hypoxemic and hypercapnic respiratory failure History of CHF History of GERD History of hyperlipidemia History of hypertension Sleep apnea syndrome, currently on home BiPAP therapy DJD Hypothyroidism Previous episode of respiratory failure with prolonged mechanical ventilation, status post tracheostomy tube and PEG tube placement History of vancomycin-resistant enterococci and Proteus mirabilis urinary tract infections Vitamin D deficiency Morbid obesity. Generalized anxiety disorder Multiple other medical problems and comorbidities Plan: Plan dated 08/04/2017 The patient's medications are reviewed. X-rays and labs are reviewed. She has a history of chronic well compensated hypercapnia. She likely has pretty significant COPD and/or sleep apnea syndrome and/or pickwickian syndrome. The patient's feeling much better today. Her breathing is much improved. Chest x- ray shows cardiomegaly and some mild vascular congestion. A BNP was not done. Medications reviewed. Adjustments are made. Plan dated 08/06/2017 From the pulmonary standpoint, the patient is doing very well. Denies any difficulty breathing coughing wheezing or shortness of breath. Not coughing up any phlegm or blood. No fever or chills. Her biggest complaint today is the fact that she has pain in the abdomen. An abdominal x-ray was done in that will be explored by the primary service. She is stable from the pulmonary service. No additional recommendations are made. Plan dated 08/06/2017 The patient seemed be doing relatively well. She seems reasonably stable. She continues on oxygen and breathing treatments. Will continue on diuretics. No additional recommendations are made. Prognosis is guarded. I believe she is likely at her baseline. The abdominal pain that was affecting her yesterday has improved. No additional recommendations are made. Time with Patient: Less than 30
[2017-08-07 12:06] LABS: Glucose,Whole Blood 158 mg/dL (75-99)
--- NOTE | 2017-08-07 12:22 | P.GSCN ---
History of Present Illness Consult date: 08/07/17 Reason for Consult: Fecal impaction History of present illness: Patient is admitted to the hospital with exacerbation of COPD. The patient is contracted with severe immobility issues. She was having some constipation. An x-ray revealed evidence of possible fecal impaction. Repeat x-ray showed some residual stool in the rectum. There is no obstructive pattern. No nausea or vomiting. Over the last 24 hours patient has had numerous stools she states. No has never had a colonoscopy. She has been refusing a rectal examination. Review of Systems The patient denies any acute changes in vision or hearing, no dysphagia or odynophagia, no chest pain or shortness of breath, no dysuria or hematuria, no headache, no runny nose, no rectal bleeding or melena, no unexplained weight loss Past Medical History Past Medical History: Heart Failure, COPD, GERD/Reflux, Hyperlipidemia, Hypertension, Musculoskeletal Disorder, Neurologic Disorder, Osteoarthritis (OA) , Sleep Apnea/CPAP/BIPAP, Thyroid Disorder Additional Past Medical History / Comment(s): COPD, hypertension, obstructive sleep apnea on BiPAP at nighttime, chronic pain, gastric esophageal reflux disease, hypothyroidism, ALLERGIC rhinitis, osteoarthritis, idiopathic peripheral autonomic neuropathy, 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 History of Any Multi-Drug Resistant Organisms: VRE Year Discovered:: 01/12/17 MDRO Source:: Urine Past Surgical History: Appendectomy, Orthopedic Surgery Additional Past Surgical History / Comment(s): PEG tube and trach placement with removal, left hip arthroplasty in 1995, insertion and removal of a tracheostomy tube. Past Psychological History: Anxiety, Depression Smoking Status: Former smoker Past Alcohol Use History: None Reported Additional Past Alcohol Use History / Comment(s): Patient was a smoker 3 packs per day for 38 years and quit in 1983. She has had alcohol use in the past. 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 Past Drug Use History: None Reported - Past Family History Father Additional Family Medical History / Comment(s): at age 58 from a fall and head injury. Mother Family Medical History: CVA/TIA Additional Family Medical History / Comment(s): Mother at age 70 from a CVA. Brother(s) Additional Family Medical History / Comment(s): Patient has one brother with no major medical problems. Sister(s) Additional Family Medical History / Comment(s): Patient has one sister with no major medical problems. Daughter(s) Additional Family Medical History / Comment(s): Patient has 2 daughters no major medical problems. Medications and Allergies Home Medications Medication Instructions Recorded Confirmed Type Acetaminophen Tab [Tylenol] 500 mg PO Q6H PRN MDD 4000MG PER 01/12/17 08/03/17 History 24HR Aspirin 81 mg PO DAILY 01/12/17 08/03/17 History Cholecalciferol [Vitamin D3] 2,000 unit PO DAILY 01/12/17 08/03/17 History DULoxetine HCL [Cymbalta] 60 mg PO BID 01/12/17 08/03/17 History Escitalopram [Lexapro] 10 mg PO DAILY 01/12/17 08/03/17 History Gabapentin [Neurontin] 200 mg PO BID 01/12/17 08/03/17 History Ipratropium-Albuterol Nebulize 3 ml INHALATION RT-Q4H PRN 01/12/17 08/03/17 History [Duoneb 0.5 mg-3 mg/3 ml Soln] Levothyroxine Sodium [Synthroid] 125 mcg PO DAILY@0600 01/12/17 08/03/17 History Lidocaine 5% Patch [Lidoderm 5% 1 patch TOPICAL Q12H PRN MDD 2 01/12/17 History Patch] patches Loratadine [Claritin] 10 mg PO DAILY 01/12/17 08/03/17 History Magnesium Hydroxide [Milk of 2,400 mg PO DAILY PRN 01/12/17 08/03/17 History Magnesia] Metoprolol Succinate [Toprol XL] 25 mg PO DAILY 01/12/17 08/03/17 History Omeprazole [PriLOSEC] 20 mg PO DAILY@0600 01/12/17 08/03/17 History Ondansetron HCl [Zofran] 4 mg PO Q6H PRN 01/12/17 08/03/17 History Polyethylene Glycol 3350 [Miralax] 17 gm PO HS 01/12/17 08/03/17 History Sodium Chloride [Saline Mist] 2 spray NASAL DAILY PRN 01/12/17 08/03/17 History Topiramate [Topamax] 50 mg PO BID 01/12/17 08/03/17 History amLODIPine [Norvasc] 5 mg PO DAILY 01/12/17 08/03/17 History Bismuth Subsalicylate 524 mg PO Q4H PRN 07/21/17 08/03/17 History [Pepto-Bismol] Ipratropium-Albuterol Nebulize 3 ml INHALATION RT-Q4H 07/21/17 08/03/17 History [Duoneb 0.5 mg-3 mg/3 ml Soln] Naldemedine Tosylate [Symproic] 0.2 mg PO DAILY 07/21/17 08/03/17 History QUEtiapine [SEROquel] 25 mg PO HS 07/21/17 08/03/17 History Sennosides-Docusate Sodium 2 tab PO BID 07/21/17 08/03/17 History [Senokot-S] ALPRAZolam [Xanax] 0.25 mg PO TID #90 tab 07/27/17 08/03/17 Rx Furosemide [Lasix] 40 mg PO BID@0900,1600 tab 07/27/17 08/03/17 Rx Hydrocodone/Acetaminophen [Flint 1 tab PO BID #60 tab 07/27/17 08/03/17 Rx 7.5-325] Hydrocodone/Acetaminophen [Flint 1 tab PO Q6HR PRN #60 tab 07/27/17 08/03/17 Rx 7.5-325] Levofloxacin [Levaquin] 500 mg PO DAILY #8 07/27/17 08/03/17 Rx Lidocaine Viscous 2% [Xylocaine 5 ml MUCOUS MEM Q4H PRN ml 07/27/17 08/03/17 Rx Viscous] guaiFENesin [Mucinex] 1,200 mg PO BID #20 tab.er.12h 07/27/17 08/03/17 Rx Budesonide [Pulmicort] 1 mg INHALATION RT-BID 08/03/17 08/03/17 History Escitalopram [Lexapro] 5 mg PO DAILY 08/03/17 08/03/17 History Fluconazole [Diflucan] 100 mg PO DAILY 08/03/17 08/03/17 History Melatonin 10 mg PO HS 08/03/17 08/03/17 History Nystatin 100,000 Unit/ml Susp 5,000,000 units PO DIRECTED 08/03/17 08/03/17 History [Mycostatin Oral Susp] acetaZOLAMIDE [Diamox] 250 mg PO DAILY 08/03/17 08/03/17 History predniSONE See Taper PO DIRECTED 08/03/17 08/03/17 History Allergies Allergy/AdvReac Type Severity Reaction Status Date / Time metronidazole [From Flagyl] Allergy Unknown Verified 08/03/17 14:13 Surgical - Exam Vital Signs Temp Pulse Resp BP Pulse Ox 98.2 F 92 22 75/63 94 L 08/03/17 13:34 08/03/17 13:34 08/03/17 13:34 08/03/17 13:34 08/03/17 13:34 Physical exam: General: Well-developed, well-nourished HEENT: Normocephalic, sclerae nonicteric Abdomen: Nontender, nondistended Extremities: No edema Neuro: Alert and oriented Rectal examination: Refused Results - Labs 08/07/17 06:11 08/07/17 06:11 Abnormal Lab Results - Last 24 Hours (Table) 08/06/17 08/06/17 08/07/17 Range/Units 17:11 20:59 06:11 WBC 15.7 H (3.8-10.6) k/uL Neutrophils # 15.0 H (1.3-7.7) k/uL Lymphocytes # 0.3 L (1.0-4.8) k/uL Sodium (137-145) mmol/L Chloride (98-107) mmol/L Carbon Dioxide (22-30) mmol/L BUN (7-17) mg/dL Glucose (74-99) mg/dL POC Glucose (mg/dL) 173 H 197 H (75-99) mg/dL Magnesium (1.6-2.3) mg/dL Alkaline Phosphatase (38-126) U/L Total Protein (6.3-8.2) g/dL Albumin (3.5-5.0) g/dL 08/07/17 08/07/17 08/07/17 Range/Units 06:11 06:19 11:54 WBC (3.8-10.6) k/uL Neutrophils # (1.3-7.7) k/uL Lymphocytes # (1.0-4.8) k/uL Sodium 136 L (137-145) mmol/L Chloride 89 L (98-107) mmol/L Carbon Dioxide 35 H (22-30) mmol/L BUN 42 H (7-17) mg/dL Glucose 125 H (74-99) mg/dL POC Glucose (mg/dL) 153 H 158 H (75-99) mg/dL Magnesium 2.5 H (1.6-2.3) mg/dL Alkaline Phosphatase 37 L (38-126) U/L Total Protein 5.5 L (6.3-8.2) g/dL Albumin 3.1 L (3.5-5.0) g/dL Diabetes panel 08/06/17 08/07/17 Range/Units 20:09 06:11 Sodium 136 L (137-145) mmol/L Potassium 4.6 4.4 (3.5-5.1) mmol/L Chloride 89 L (98-107) mmol/L Carbon Dioxide 35 H (22-30) mmol/L BUN 42 H (7-17) mg/dL Creatinine 0.90 (0.52-1.04) mg/dL Glucose 125 H (74-99) mg/dL Calcium 9.3 (8.4-10.2) mg/dL AST 14 (14-36) U/L ALT 17 (9-52) U/L Alkaline Phosphatase 37 L (38-126) U/L Total Protein 5.5 L (6.3-8.2) g/dL Albumin 3.1 L (3.5-5.0) g/dL Calcium panel 08/07/17 Range/Units 06:11 Calcium 9.3 (8.4-10.2) mg/dL Albumin 3.1 L (3.5-5.0) g/dL Pituitary panel 08/06/17 08/07/17 Range/Units 20:09 06:11 Sodium 136 L (137-145) mmol/L Potassium 4.6 4.4 (3.5-5.1) mmol/L Chloride 89 L (98-107) mmol/L Carbon Dioxide 35 H (22-30) mmol/L BUN 42 H (7-17) mg/dL Creatinine 0.90 (0.52-1.04) mg/dL Glucose 125 H (74-99) mg/dL Calcium 9.3 (8.4-10.2) mg/dL Adrenal panel 08/06/17 08/07/17 Range/Units 20:09 06:11 Sodium 136 L (137-145) mmol/L Potassium 4.6 4.4 (3.5-5.1) mmol/L Chloride 89 L (98-107) mmol/L Carbon Dioxide 35 H (22-30) mmol/L BUN 42 H (7-17) mg/dL Creatinine 0.90 (0.52-1.04) mg/dL Glucose 125 H (74-99) mg/dL Calcium 9.3 (8.4-10.2) mg/dL Total Bilirubin 0.6 (0.2-1.3) mg/dL AST 14 (14-36) U/L ALT 17 (9-52) U/L Alkaline Phosphatase 37 L (38-126) U/L Total Protein 5.5 L (6.3-8.2) g/dL Albumin 3.1 L (3.5-5.0) g/dL Assessment and Plan (1) Constipation Narrative/Plan: Patient with constipation that seems to be improving. Given the bowel function I doubt residual fecal impaction. Either way the patient is refusing a rectal exam. We'll provide one bottle of magnesium citrate today. We'll reevaluate tomorrow. Current Visit: Yes Status: Acute Code(s): K59.00 - CONSTIPATION, UNSPECIFIED SNOMED Code(s): 43304225
[2017-08-07] MEDS ORDERED: MAGNESIUM CITRATE 296 ML BOTTLE PO ONE (12:30)
--- NOTE | 2017-08-07 15:10 | P.PN ---
Subjective Progress Note Date: 08/07/17 77-year-old female patient of Dr. Elizabeth currently residing at [facility] with past medical history COPD on 4 L Oxygen , hypertension, obstructive sleep apnea on BiPAP at nighttime, chronic pain, gastric esophageal reflux disease, hypothyroidism, ALLERGIC rhinitis, osteoarthritis, idiopathic peripheral autonomic neuropathy, chronic urinary tract infections, vitamin D deficiency, morbid obesity, bed bound forthe past 13 years, h/o prolonged intubation leading to tracheostomy which was finally removed, has been bedbound ever seen. Patient was just discharged on 07/[address] [facility] after treating her for acute hypoxic respiratory failure from bilateral lower lobe pneumonia with accompanying of tracheobronchitis for COPD exacerbation. Patient was also treated for acute diastolic heart failure during that admission. On discharge patient was back on her baseline of 4 L. According to the daughter patient was gradually uptitrated on her oxygen in the last few days. She was coughing up since discharge and has not gotten better since discharge. Patient endorses chills denies fever. She does feel short of breath and productive cough with greenish in color. Patient denies any history of DVT or pulmonary embolism in the past. She appears to be mentating well. Currently requiring 10 L of high flow on the oxygen. Vitals otherwise is stable with blood pressure 114/55, afebrile tachypneic to 20. Labs suggestive a leukocytosis of 20, d-dimer was normal. ABG was conducted this morning suggested a CO2 of 63 and pO2 114 at FiO2 of 60%. Influenza was negative 08/05: Patient has been refusing to be turned in bed during the night. Specialty mattress ordered. Patient is also refusing to do incentive spirometry. Patient has had no bowel movement is is feeling constipated. She is starting on MiraLAX and Senokot. Dulcolax suppository will be added. Patient does have some abdominal distention and x-rays will be requested. Cardiology is following the patient with no change in medications. They are now following the patient on an as-needed basis. Pulmonary medicine is also on consult. Discussed with patient the need to cooperate with the nurses to prevent further breakdown in her skin. Patient has a stage II decubitus ulcer to the coccyx area. Patient is followed by both cardiology and pulmonary medicine. No medication changes made today. Patient is continued on Solu- Medrol 60 mg IV every 6 hours. She is on IV vancomycin and Zosyn. Daughter is at the bedside and all questions of been answered. 08/06. Patient examined bedside. Still requiring 8 L of high flow oxygen. Patient did have a large bowel movement in response to Dulcolax suppository. Patient underwent abdominal x-ray that concern for fecal impaction. Patient complains of increased abdominal tenderness since her last bowel movement. Repeat abdominal x-ray was ordered to rule out obstruction which is negative. Surgery consult for any further recommendation on impaction which appears to be resolved. We will repeat a Dulcolax suppository today for fecal stasis. Increased Lasix dose to 60 IV twice a day. Continue Zosyn and hold vancomycin. Sputum culture pending 08/07 patient continues to require 8 L NC. Seen lying comfortably in bed. Continue to diurize with iv lasix. Patient abdominal pain is better than yesterday. Still continues to tender diffusely. Surgery to evaluate the patient. Objective - Vital Signs Vital signs: Vital Signs Temp 98.5 F 08/07/17 03:27 Pulse 90 08/07/17 11:38 Resp 16 08/07/17 07:59 BP 131/80 08/07/17 07:55 Pulse Ox 98 08/07/17 07:55 Intake & Output 08/06/17 08/07/17 08/07/17 18:59 06:59 18:59 Intake Total 808 370 240 Output Total 2 Balance 808 368 240 Weight 95 kg Intake: IV 250 Vancomycin 1,500 mg In 250 Sodium Chloride 0.9% 250 ml @ 125 mls/hr IVPB Q24H [facility] Rx#:[id number] Intake, IV Titration 200 Amount Potassium Chloride 10 meq 200 In Water For Injection 1 100ml.bag @ 100 mls/hr IVPB Q1H [facility] Rx#: [id number] Oral 358 370 240 Output: Stool 2 Other: Voiding Method Bedpan Bedpan Bedpan Diaper Diaper Diaper Incontinent Incontinent Incontinent # Voids 1 1 # Bowel Movements 1 - Exam - Exam General appearance: cooperative, no acute distress, obese on 10 L high flow nasal cannula though comfortable - EENT Eyes: anicteric sclerae, PERRLA, normal appearance ENT: hearing grossly normal - Neck Neck: no lymphadenopathy, normal ROM, no other, no rigidity, no stridor, no thyromegaly - Respiratory Respiratory: Equal air entry with wheezes few rhonchi appears congested on examination - Cardiovascular Rhythm: regular Heart sounds: normal: S1, S2 Abnormal Heart Sounds: no systolic murmur, no diastolic murmur, no rub, no S3 Gallop, no S4 Gallop, no click, no other - Gastrointestinal General gastrointestinal: normal bowel sounds, soft, tender diffusely, no guarding or rigidity - Integumentary Integumentary: no rash, bruising from IV sitestage 3 pressure ulcer on buttock ( present on admission ) Musculoskeletal: Does have contractures bilateral upper and lower extremity - Labs CBC & Chem 7: 08/07/17 06:11 08/07/17 06:11 Labs: Abnormal Lab Results - Last 24 Hours (Table) 08/06/17 08/06/17 08/07/17 Range/Units 17:11 20:59 06:11 WBC 15.7 H (3.8-10.6) k/uL Neutrophils # 15.0 H (1.3-7.7) k/uL Lymphocytes # 0.3 L (1.0-4.8) k/uL Sodium (137-145) mmol/L Chloride (98-107) mmol/L Carbon Dioxide (22-30) mmol/L BUN (7-17) mg/dL Glucose (74-99) mg/dL POC Glucose (mg/dL) 173 H 197 H (75-99) mg/dL Magnesium (1.6-2.3) mg/dL Alkaline Phosphatase (38-126) U/L Total Protein (6.3-8.2) g/dL Albumin (3.5-5.0) g/dL 08/07/17 08/07/17 08/07/17 Range/Units 06:11 06:19 11:54 WBC (3.8-10.6) k/uL Neutrophils # (1.3-7.7) k/uL Lymphocytes # (1.0-4.8) k/uL Sodium 136 L (137-145) mmol/L Chloride 89 L (98-107) mmol/L Carbon Dioxide 35 H (22-30) mmol/L BUN 42 H (7-17) mg/dL Glucose 125 H (74-99) mg/dL POC Glucose (mg/dL) 153 H 158 H (75-99) mg/dL Magnesium 2.5 H (1.6-2.3) mg/dL Alkaline Phosphatase 37 L (38-126) U/L Total Protein 5.5 L (6.3-8.2) g/dL Albumin 3.1 L (3.5-5.0) g/dL Assessment and Plan Plan: 1. Acute respiratory insufficiency secondary to acute on chronic diastolic heart failure and COPD exacerbation/ acute bronchitis with healthcare associated pneumonia as patient was recently treated in the hospital . Patient was treated with Levaquin in the last admission. Will switch antibiotic to vancomycin and Zosyn. On Lasix 40 mg IV push every 12 hours, sputum culture, blood culture, pulmonary consultation. Echocardiogram 2017 reveals EF of 55 -60% with concentric left ventricular hypertrophy, severe pulmonary hypertension, mild mitral regurgitation, severe tricuspid regurgitation. continue DuoNeb 3 mL nebulization 4 times every day. Continue Solu-Medrol 60 IV every 6 hours Monitor the patient weight on a daily basis. patient's presentation is her severe pulmonary hypertension likely secondary to hypoventilation, patient may need increasing amount of oxygen in the next few years. 2. Acute on chronic diastolic heart failure. Continue Toprol-XL 25 mg orally once every day, continue patient on Lasix 60 mg IV push every 12 hours, continue to monitor input and output and daily weight 3. Morbid obesity with [place] - continue Bipap in the night 4 Medical debility, bedbound . Physical therapy evaluation, discharge to [facility] once patient stabilizes 5. GERD. Continue Protonix 40 mg orally once every day. 6. Hypertension and hypertensive cardiovascular disease. Continue Toprol-XL 25 mg orally once every day, amlodipine 5 mg orally once every day. 7. Hyperlipidemia. Low-cholesterol diet. 8. Hypothyroidism. Continue Synthroid 125 g orally once every day. 9. Peripheral neuropathy. Continue gabapentin 200 mg orally twice every day. 10. Depressive disorder. Continue patient on Cymbalta 60 mg orally once every day and Lexapro 10 mg orally once every day. 11. Osteoarthritis with joint deformities including the right hand as well as bilateral lower extremity's. History of prolonged hospitialisation including intubation with developmont of significant paraparesis of both lower extremities with significant deformity of the right wrist. 12. Anxiety disorder. Continue patient on Lexapro 10 mg orally once every day. 13. ALLERGIC rhinitis. Continue patient on Claritin 10 mg orally once every day. 14. DVT prophylaxis. Continue Lovenox 40 mg subcutaneously every 24 hours. 15. GI prophylaxis. Continue Protonix 40 mg orally once every day. 16. Patient is full code. Estimate a length of stay 2 midnights. 17. Admit to inpatient. 18. Fecal impaction status post Dulcolax suppository. Surgery consult
[2017-08-07] MEDS: ACETAMINOPHEN TAB 500 MG TAB PO PRN ×2 (16:17→23:10)
[2017-08-07 17:30] LABS: Glucose,Whole Blood 212 mg/dL (75-99)
[2017-08-07 20:24] LABS: Glucose,Whole Blood 174 mg/dL (75-99)
[2017-08-07] MEDS: QUEtiapine 25 MG TAB PO SCH (22:05)
[2017-08-07] MEDS: POLYETHYLENE GLYCOL 3350 17 GM POWD.PACK PO SCH (22:10)
[2017-08-07] MEDS: MELATONIN 5 MG TABLET PO SCH (22:10)
[2017-08-08] MEDS: methylPREDNISolone SOD SUCCI 125 MG/2 ML VIAL IV SCH (05:43)
[2017-08-08] MEDS: LEVOTHYROXINE 125 MCG TAB PO SCH (05:44)
[2017-08-08 07:42] LABS: Glucose,Whole Blood 129 mg/dL (75-99)
[2017-08-08] MEDS: IPRATROPIUM-ALBUTEROL 3 ML NEB INHALATION SCH ×4 (07:43→19:44)
[2017-08-08] MEDS: BUDESONIDE 1 MG/2 ML NEBU INHALATION SCH ×2 (07:43→19:44)
[2017-08-08] MEDS: FORMOTEROL FUMARATE 20 MCG/2 ML NEBU INHALATION SCH ×2 (07:43→19:45)
[2017-08-08] MEDS: INSULIN ASPART 100 UNIT/ML 1 ML 10 ML VIAL SQ SCH ×4 (07:50→21:30)
[2017-08-08] MEDS: HYDROcodone/APAP 7.5-325MG 1 EACH TAB PO SCH ×2 (09:25→21:29)
[2017-08-08] MEDS: PIPERACILLIN-TAZOBACTAM 3.375 GM in DEXTROSE/WATER 1 50ML.BAG IVPB SCH ×2 (09:26→16:21)
[2017-08-08] MEDS: guaiFENesin 600 MG TABLET.ER PO SCH ×2 (09:27→21:32)
[2017-08-08] MEDS: ENOXAPARIN 40 MG/0.4 ML SYRINGE SQ SCH (09:27)
[2017-08-08] MEDS: FUROSEMIDE 10 MG/ML 10 ML VIAL IV SCH ×2 (09:32→21:34)
[2017-08-08] MEDS: SENNOSIDES-DOCUSATE SODIUM 1 EACH TAB PO SCH ×2 (09:32→21:34)
[2017-08-08] MEDS: LORATADINE 10 MG TAB PO SCH (09:32)
[2017-08-08] MEDS: ESCITALOPRAM 5 MG TAB PO SCH (09:32)
[2017-08-08] MEDS: GABAPENTIN 100 MG CAP PO SCH ×2 (09:33→21:33)
[2017-08-08] MEDS: PANTOPRAZOLE 40 MG TABLET PO SCH (09:33)
[2017-08-08] MEDS: FLUCONAZOLE 100 MG TAB PO SCH (09:34)
[2017-08-08] MEDS: acetaZOLAMIDE 250 MG TAB PO SCH (09:34)
[2017-08-08] MEDS: ESCITALOPRAM 10 MG TAB PO SCH (09:34)
[2017-08-08] MEDS: ASPIRIN 81 MG PO SCH (09:34)
[2017-08-08] MEDS: TOPIRAMATE 25 MG TAB PO SCH ×2 (09:34→21:31)
[2017-08-08] MEDS: amLODIPine 5 MG TAB PO SCH (09:34)
[2017-08-08] MEDS: CHOLECALCIFEROL 1,000 UNIT TAB PO SCH (09:35)
[2017-08-08] MEDS: DULoxetine HCL 60 MG CAPSULE.DR PO SCH ×2 (09:35→21:32)
[2017-08-08] MEDS: METOPROLOL SUCCINATE (ER) 25 MG TAB.ER.24H PO SCH (09:35)
[2017-08-08] MEDS: BISACODYL 10 MG SUPP RECTAL SCH (09:38)
[2017-08-08] MEDS: ALPRAZolam 0.25 MG TAB PO SCH ×3 (09:38→21:30)
[2017-08-08] MEDS: NALDEMEDINE TOSYLATE 0.2 MG PO SCH (10:36)
[2017-08-08 11:24] LABS: Glucose,Whole Blood 185 mg/dL (75-99)
--- NOTE | 2017-08-08 12:33 | XR ---
EXAMINATION TYPE: XR chest 1V portable DATE OF EXAM: 08/08/2017 COMPARISON: Prior chest x-ray 08/03/2017 HISTORY: Follow-up congestive heart failure TECHNIQUE: Single frontal view of the chest is obtained. FINDINGS: Patient is again rotated, there are overlying cardiac leads. Cardiomediastinal silhouette, pulmonary vascularity and constantino show a similar appearance. No evident airspace disease, pneumothorax, or pleural effusion. Marked destruction of the left shoulder joint is stable, right shoulder joint a lso shows destructive change. There may be some improvement in the interstitium, aeration as compared to prior exam. IMPRESSION: Slight interval improvement in aeration is suspected. No other significant change.
--- NOTE | 2017-08-08 12:38 | P.PN ---
<Brandie Guan M - Last Filed: 08/08/17 12:38> Subjective Progress Note Date: 08/08/17 77-year-old seen at bedside patients being evaluated at the request of the attending for chief complaint of constipation. X-ray reviewed evidence of possible fecal impaction. A repeat x-ray of the abdomen showed some residual stool in the rectum. No obstructive pattern. No nausea no vomiting. Patient states she has had a large stool this morning. And several stools yesterday. Patient's adamant about not experiencing any abdominal pain. Objective - Vital Signs Vital signs: Vital Signs Temp 97.8 F 08/08/17 08:03 Pulse 96 08/08/17 11:34 Resp 18 08/08/17 08:03 BP 122/56 08/08/17 08:03 Pulse Ox 95 08/08/17 08:03 Intake & Output 08/07/17 08/08/17 08/08/17 18:59 06:59 18:59 Intake Total 480 330 Output Total 4 2 Balance 476 328 Weight 95.2 kg Intake: IV 40 0.9 40 Intake, IV Titration 50 Amount Piperacillin-Tazobactam 3 50 .375 gm In Dextrose/Water 1 50ml.bag @ 12.5 mls/hr IVPB Q8HR [facility] Rx#: [id number] Oral 480 240 Output: Stool 4 2 Other: Voiding Method Bedpan Bedpan Bedpan Diaper Diaper Diaper Incontinent Incontinent Incontinent # Voids 1 1 # Bowel Movements 1 - Exam Physical exam 77-year-old female sitting up in bed appears in no acute distress Lungs adequate air movement bilaterally no shortness of breath Heart S1-S2 audible and regular Abdomen obese soft and not distended nontender bowel tones present incontinent urine reports no nausea vomiting states had a large bowel movement this morning no blood Extremities no pedal edema noted - Labs CBC & Chem 7: 08/07/17 06:11 08/07/17 06:11 Labs: Abnormal Lab Results - Last 24 Hours (Table) 08/07/17 08/07/17 08/08/17 Range/Units 17:09 20:20 07:33 POC Glucose (mg/dL) 212 H 174 H 129 H (75-99) mg/dL 08/08/17 Range/Units 11:17 POC Glucose (mg/dL) 185 H (75-99) mg/dL Assessment and Plan Assessment: Impression Fecal impaction status post Dulcolax suppository given resolved Constipation resolved bowel function resumed Acute on chronic diastolic heart failure Morbid obesity with obstructive sleep apnea with BiPAP therapy Medically debilitated limited mobility bedbound Chronic constipation suspect narcotic induced with physical immobility Plan Continue bowel stimulant program No evidence of an acute surgical abdomen DVT and GI prophylaxis Will follow with you The above impression and plan of care have been discussed and directed by signing physician. Brandie Guan nurse practitioner acting as scribe for signing physician. <Grant Rdz - Last Filed: 08/08/17 16:56> Objective - Vital Signs Vital signs: Vital Signs Temp 97.1 F L 08/08/17 14:38 Pulse 92 08/08/17 16:36 Resp 18 08/08/17 14:38 BP 109/62 08/08/17 14:38 Pulse Ox 91 L 08/08/17 14:38 Intake & Output 08/07/17 08/08/17 08/08/17 18:59 06:59 18:59 Intake Total 480 330 160 Output Total 4 2 Balance 476 328 160 Weight 95.2 kg 95.2 kg Intake: IV 40 160 0.9 40 160 Intake, IV Titration 50 Amount Piperacillin-Tazobactam 3 50 .375 gm In Dextrose/Water 1 50ml.bag @ 12.5 mls/hr IVPB Q8HR [facility] Rx#: [id number] Oral 480 240 Output: Stool 4 2 Other: Voiding Method Bedpan Bedpan Bedpan Diaper Diaper Diaper Incontinent Incontinent Incontinent # Voids 1 1 # Bowel Movements 1 - Labs CBC & Chem 7: 08/07/17 06:11 08/07/17 06:11 Labs: Abnormal Lab Results - Last 24 Hours (Table) 08/07/17 08/07/17 08/08/17 Range/Units 17:09 20:20 07:33 POC Glucose (mg/dL) 212 H 174 H 129 H (75-99) mg/dL 08/08/17 Range/Units 11:17 POC Glucose (mg/dL) 185 H (75-99) mg/dL Assessment and Plan Assessment: As above. Patient doing well. She has had multiple loose stools since yesterday. Given the significant bowel function rectal exam is not willing to be very helpful at this point. Either way the patient still is refusing. Continue bowel regimen. Continue diet as tolerated. We'll sign off at this point. (1) Constipation Current Visit: Yes Status: Acute Code(s): K59.00 - CONSTIPATION, UNSPECIFIED SNOMED Code(s): 95346361
[2017-08-08 13:25] VITALS: BMI 31.8
--- NOTE | 2017-08-08 15:44 | P.PN ---
Subjective Progress Note Date: 08/08/17 Principal diagnosis: Dyspnea, multifactorial, related to underlying fluid overload, and acute COPD exacerbation, with acute on chronic hypoxemic and hypercapnic respiratory failure Shortness of breath Progress note dated 08/06/2017 This is a 77-year-old bedbound woman with complaints of shortness of breath, secondary to both overload and COPD exacerbation. She has a history of acute on chronic hypoxemic and hypercapnic respiratory failure congestive heart failure GERD hyperlipidemia hypertension sleep apnea syndrome currently on BiPAP , degenerative joint disease hypothyroidism previous episode of respiratory failure with prolonged mechanical ventilation status post tracheostomy tube and PEG tube, history of vancomycin-resistant enterococci and Proteus mirabilis urinary tract infections, vitamin D deficiency, morbid obesity, generalized anxiety disorder and multiple other medical problems and comorbidities. Today, the patient states that her breathing is just fine. She remains on nasal O2. She states that she is feeling a lot of tenderness and pain in her abdominal area and does not want anybody to touch it. She states that she was given a suppository yesterday. The patient is a permanent resident at [facility] on the [facility]. She apparently is been bedbound for more than 10 years. Progress note dated 08/07/2017 This is a 77-year-old female with history of shortness of breath, likely secondary to fluid overload as well as COPD exacerbation. She has a history of acute on chronic hypoxemic and hypercapnic respiratory failure, CHF, severe immobility and being bedbound for more than 10 years, GERD, hyperlipidemia, hypertension, sleep apnea syndrome, DJD, hypothyroidism, previous episode of respiratory failure with prolonged mechanical ventilation status post tracheostomy and PEG tube placement, vancomycin-resistant enterococci and Proteus mirabilis UTIs, vitamin D deficiency, morbid obesity, generalized anxiety disorder and multiple other medical problems and comorbidities. The patient is quite debilitated. She is feeling a bit better. Her belly pain which is her major concern yesterday has improved somewhat. She denies any chest pain or chest discomfort. No shortness of breath. She is wearing nasal oxygen. She is a permanent resident at one of the [facility]. On 08/08/2017 patient seen in follow-up. She is resting comfortably in bed, denies any acute distress. She is currently on 5 L per nasal cannula with O2 sat at 95%. She is afebrile, hemodynamically stable. Patient is receiving IV diuretics with Lasix 60 mg IV every 12 hours. Her net fluid balance is difficult to estimate as the patient is incontinent of urine. Patient's weight is 95.2 kg today, up from 95 kg from yesterday. Lung sounds are positive for diffuse scattered rhonchi, patient has a congested nonproductive cough. No wheezes noted. Patient states her abdominal discomfort is much improved, she has had several episodes of bowel activity, and she feels much relieved. Her abdomen is soft and nontender. She is tolerating oral intake, no nausea or vomiting. She is on Zosyn, the chest x-rays were negative for any evidence of pneumonia. Patient has been afebrile, on blood work yesterday her WBC was 15.7. Her sputum culture from last admission was only positive for Hannah albicans, blood cultures were negative at that time as well. Patient denies any urinary symptoms. She continues on IV Solu-Medrol at 60 mg every 6 hours, nebulized treatments. Patient is refusing to do her incentive spirometry, and she wants to be on 6 L per nasal cannula at all times, she feels that the optimal amount of oxygen for her. Objective - Vital Signs Vital signs: Vital Signs Temp 97.8 F 08/08/17 08:03 Pulse 96 08/08/17 11:34 Resp 18 08/08/17 08:03 BP 122/56 08/08/17 08:03 Pulse Ox 95 08/08/17 08:03 Intake & Output 08/07/17 08/08/17 08/08/17 18:59 06:59 18:59 Intake Total 480 330 Output Total 4 2 Balance 476 328 Weight 95.2 kg Intake: IV 40 0.9 40 Intake, IV Titration 50 Amount Piperacillin-Tazobactam 3 50 .375 gm In Dextrose/Water 1 50ml.bag @ 12.5 mls/hr IVPB Q8HR [facility] Rx#: [id number] Oral 480 240 Output: Stool 4 2 Other: Voiding Method Bedpan Bedpan Bedpan Diaper Diaper Diaper Incontinent Incontinent Incontinent # Voids 1 1 # Bowel Movements 1 - Exam GENERAL EXAM: Alert, pleasant, obese 77-year-old white female, chronically bedbound, seen resting in bed in no apparent distress comfortable in no apparent distress HEAD: Normocephalic/atraumatic. EYES: Normal reaction of pupils, equal size. Conjunctiva pink, sclera white. NOSE: Clear with pink turbinates. THROAT: No erythema or exudates. NECK: No masses, no JVD, no thyroid enlargement, no adenopathy. CHEST: No chest wall deformity. Symmetrical expansion. LUNGS: Equal air entry with scattered rhonchi bilaterally CVS: Regular rate and rhythm, normal S1 and S2, no gallops, no murmurs, no rubs ABDOMEN: Soft, nontender. No hepatosplenomegaly, normal bowel sounds, no guarding or rigidity. EXTREMITIES: No clubbing, no edema, no cyanosis, there is chronic foot drop noted bilaterally, and chronic venous stasis discoloration on both pretibial areas MUSCULOSKELETAL: Muscle strength and tone normal. SPINE: No scoliosis or deformity SKIN: No rashes CENTRAL NERVOUS SYSTEM: Alert and oriented -3. No focal deficits, tone is normal in all 4 extremities. PSYCHIATRIC: Alert and oriented -3. Appropriate affect. Intact judgment and insight. - Labs CBC & Chem 7: 08/07/17 06:11 08/07/17 06:11 Labs: Abnormal Lab Results - Last 24 Hours (Table) 08/07/17 08/07/17 08/07/17 Range/Units 11:54 17:09 20:20 POC Glucose (mg/dL) 158 H 212 H 174 H (75-99) mg/dL 08/08/17 08/08/17 Range/Units 07:33 11:17 POC Glucose (mg/dL) 129 H 185 H (75-99) mg/dL Assessment and Plan Plan: Assessment: #1. Acute on chronic hypoxemic and hypercapnic respiratory failure secondary to acute COPD exacerbation, and mild fluid overload #2. Chronic diastolic congestive heart failure, with a EF between 55-60% #3. History of GERD #4. History of hyperlipidemia #5. History of hypertension #6. Sleep apnea syndrome, currently on home BiPAP therapy #7. DJD #8. Hypothyroidism #9. Previous episode of respiratory failure with prolonged mechanical ventilation, status post tracheostomy tube and PEG tube placement #10. History of vancomycin-resistant enterococci and Proteus mirabilis urinary tract infections #11. Vitamin D deficiency #12. Morbid obesity. #13. Generalized anxiety disorder #14. Multiple other medical problems and comorbidities Plan: Repeat a chest x-ray was done and reviewed, slight interval improvement in aeration. We will discontinue the IV diuretics, patient is becoming prerenal. We will decrease the Solu-Medrol 40 mg every 8 hours. Continue with nebulized treatments, continue Mucinex. Maintain aspiration precautions. CODE STATUS was addressed, patient states she wants to be a full code, and she states she wants all of the necessary lifesaving interventions including life-support, any necessary ACLS interventions. I performed a history & physical examination of the patient and discussed their management with my nurse practitioner, Delaney Waters. I reviewed the nurse practitioner's note and agree with the documented findings and plan of care. Lung sounds are positive for a few scattered rhonchi. The findings and the impression was discussed with the patient. I attest to the documentation by the nurse practitioner. Time with Patient: Less than 30
[2017-08-08] MEDS: methylPREDNISolone SOD SUCCI 40 MG/ML 1 ML VIAL IV SCH (16:26)
--- NOTE | 2017-08-08 16:59 | P.PN ---
Subjective 77-year-old female patient of Dr. Elizabeth currently residing at [facility] with past medical history COPD on 4 L Oxygen , hypertension, obstructive sleep apnea on BiPAP at nighttime, chronic pain, gastric esophageal reflux disease, hypothyroidism, ALLERGIC rhinitis, osteoarthritis, idiopathic peripheral autonomic neuropathy, chronic urinary tract infections, vitamin D deficiency, morbid obesity, bed bound forthe past 13 years, h/o prolonged intubation leading to tracheostomy which was finally removed, has been bedbound ever seen. Patient was just discharged on 07/27 to [facility] after treating her for acute hypoxic respiratory failure from bilateral lower lobe pneumonia with accompanying of tracheobronchitis for COPD exacerbation. Patient was also treated for acute diastolic heart failure during that admission. On discharge patient was back on her baseline of 4 L. According to the daughter patient was gradually uptitrated on her oxygen in the last few days. She was coughing up since discharge and has not gotten better since discharge. Patient endorses chills denies fever. She does feel short of breath and productive cough with greenish in color. Patient denies any history of DVT or pulmonary embolism in the past. She appears to be mentating well. Currently requiring 10 L of high flow on the oxygen. Vitals otherwise is stable with blood pressure 114/55, afebrile tachypneic to 20. Labs suggestive a leukocytosis of 20, d-dimer was normal. ABG was conducted this morning suggested a CO2 of 63 and pO2 114 at FiO2 of 60%. Influenza was negative 08/05: Patient has been refusing to be turned in bed during the night. Specialty mattress ordered. Patient is also refusing to do incentive spirometry. Patient has had no bowel movement is is feeling constipated. She is starting on MiraLAX and Senokot. Dulcolax suppository will be added. Patient does have some abdominal distention and x-rays will be requested. Cardiology is following the patient with no change in medications. They are now following the patient on an as-needed basis. Pulmonary medicine is also on consult. Discussed with patient the need to cooperate with the nurses to prevent further breakdown in her skin. Patient has a stage II decubitus ulcer to the coccyx area. Patient is followed by both cardiology and pulmonary medicine. No medication changes made today. Patient is continued on Solu- Medrol 60 mg IV every 6 hours. She is on IV vancomycin and Zosyn. Daughter is at the bedside and all questions of been answered. 08/06. Patient examined bedside. Still requiring 8 L of high flow oxygen. Patient did have a large bowel movement in response to Dulcolax suppository. Patient underwent abdominal x-ray that concern for fecal impaction. Patient complains of increased abdominal tenderness since her last bowel movement. Repeat abdominal x-ray was ordered to rule out obstruction which is negative. Surgery consult for any further recommendation on impaction which appears to be resolved. We will repeat a Dulcolax suppository today for fecal stasis. Increased Lasix dose to 60 IV twice a day. Continue Zosyn and hold vancomycin. Sputum culture pending 08/07 patient continues to require 8 L NC. Seen lying comfortably in bed. Continue to diurize with iv lasix. Patient abdominal pain is better than yesterday. Still continues to tender diffusely. Surgery to evaluate the patient. 08/08 patient was evaluated at the bedside today. she continues on 6 L of O2 via nasal cannula, repeat chest x-ray shows slight interval improvement in aeration and no other significant change. she reports her abdominal pain has improved. She is tolerating oral intake, no nausea vomiting. she complains of some mouth soreness, has had multiple thrush infections in the past, will do nystatin swish and swallow per her request. patient reports she would like to stay one more day before going back to her [facility], will plan for discharge tomorrow Objective - Vital Signs Vital signs: Vital Signs Temp 97.1 F L 08/08/17 14:38 Pulse 92 08/08/17 16:36 Resp 18 08/08/17 14:38 BP 109/62 08/08/17 14:38 Pulse Ox 91 L 08/08/17 14:38 Intake & Output 08/07/17 08/08/17 08/08/17 18:59 06:59 18:59 Intake Total 480 330 160 Output Total 4 2 Balance 476 328 160 Weight 95.2 kg 95.2 kg Intake: IV 40 160 0.9 40 160 Intake, IV Titration 50 Amount Piperacillin-Tazobactam 3 50 .375 gm In Dextrose/Water 1 50ml.bag @ 12.5 mls/hr IVPB Q8HR [facility] Rx#: [id number] Oral 480 240 Output: Stool 4 2 Other: Voiding Method Bedpan Bedpan Bedpan Diaper Diaper Diaper Incontinent Incontinent Incontinent # Voids 1 1 # Bowel Movements 1 - Exam General appearance: cooperative, no acute distress, obese on 10 L high flow nasal cannula though comfortable - EENT Eyes: anicteric sclerae, PERRLA, normal appearance ENT: hearing grossly normal - Neck Neck: no lymphadenopathy, normal ROM, no other, no rigidity, no stridor, no thyromegaly - Respiratory Respiratory: Equal air entry with wheezes few rhonchi appears congested on examination - Cardiovascular Rhythm: regular Heart sounds: normal: S1, S2 Abnormal Heart Sounds: no systolic murmur, no diastolic murmur, no rub, no S3 Gallop, no S4 Gallop, no click, no other - Gastrointestinal General gastrointestinal: normal bowel sounds, soft, tender diffusely, no guarding or rigidity - Integumentary Integumentary: no rash, bruising from IV sitestage 3 pressure ulcer on buttock ( present on admission ) Musculoskeletal: Does have contractures bilateral upper and lower extremity - Labs CBC & Chem 7: 08/07/17 06:11 08/07/17 06:11 Labs: Abnormal Lab Results - Last 24 Hours (Table) 08/07/17 08/07/17 08/08/17 Range/Units 17:09 20:20 07:33 POC Glucose (mg/dL) 212 H 174 H 129 H (75-99) mg/dL 08/08/17 Range/Units 11:17 POC Glucose (mg/dL) 185 H (75-99) mg/dL Assessment and Plan Plan: 1. Acute respiratory insufficiency secondary to acute on chronic diastolic heart failure and COPD exacerbation/ acute bronchitis with healthcare associated pneumonia as patient was recently treated in the hospital . Patient was treated with Levaquin in the last admission. Will switch antibiotic to vancomycin and Zosyn. On Lasix 40 mg IV push every 12 hours, sputum culture, blood culture, pulmonary consultation. Echocardiogram 07/2017 reveals EF of 55- 60% with concentric left ventricular hypertrophy, severe pulmonary hypertension , mild mitral regurgitation, severe tricuspid regurgitation. continue DuoNeb 3 mL nebulization 4 times every day. Continue Solu-Medrol 60 IV every 6 hours Monitor the patient weight on a daily basis. patient's presentation is her severe pulmonary hypertension likely secondary to hypoventilation, patient may need increasing amount of oxygen in the next few years. 2. Acute on chronic diastolic heart failure. Continue Toprol-XL 25 mg orally once every day, continue patient on Lasix 60 mg IV push every 12 hours, continue to monitor input and output and daily weight 3. Morbid obesity with [place] - continue Bipap in the night 4 Medical debility, bedbound . Physical therapy evaluation, discharge to [facility] once patient stabilizes 5. GERD. Continue Protonix 40 mg orally once every day. 6. Hypertension and hypertensive cardiovascular disease. Continue Toprol-XL 25 mg orally once every day, amlodipine 5 mg orally once every day. 7. Hyperlipidemia. Low-cholesterol diet. 8. Hypothyroidism. Continue Synthroid 125 g orally once every day. 9. Peripheral neuropathy. Continue gabapentin 200 mg orally twice every day. 10. Depressive disorder. Continue patient on Cymbalta 60 mg orally once every day and Lexapro 10 mg orally once every day. 11. Osteoarthritis with joint deformities including the right hand as well as bilateral lower extremity's. History of prolonged hospitialisation including intubation with developmont of significant paraparesis of both lower extremities with significant deformity of the right wrist. 12. Anxiety disorder. Continue patient on Lexapro 10 mg orally once every day. 13. ALLERGIC rhinitis. Continue patient on Claritin 10 mg orally once every day. 14. DVT prophylaxis. Continue Lovenox 40 mg subcutaneously every 24 hours. 15. GI prophylaxis. Continue Protonix 40 mg orally once every day. 16. Patient is full code. Estimate a length of stay 2 midnights. 17. Admit to inpatient. 18. Fecal impaction status post Dulcolax suppository. Surgery consult The above impression and plan of care have been discussed and directed by signing physician. Maribeth Gonzalez nurse practitioner acting as scribe for signing physician.
[2017-08-08 17:41] LABS: Glucose,Whole Blood 120 mg/dL (75-99)
[2017-08-08] MEDS: LIDOCAINE VISCOUS 2% 15 ML CUP MUCOUS MEM PRN (19:21)
[2017-08-08 20:28] LABS: Glucose,Whole Blood 209 mg/dL (75-99)
[2017-08-08] MEDS ORDERED: POLYETHYLENE GLYCOL 3350 17 GM POWD.PACK PO SCH (21:00)
[2017-08-08] MEDS: MELATONIN 5 MG TABLET PO SCH (21:30)
[2017-08-08] MEDS: QUEtiapine 25 MG TAB PO SCH (21:31)
[2017-08-08] MEDS: DOCUSATE 100 MG CAP PO SCH (21:32)
[2017-08-09 00:14] VITALS: TEMP 97.5
[2017-08-09] MEDS: methylPREDNISolone SOD SUCCI 40 MG/ML 1 ML VIAL IV SCH ×2 (00:30→09:01)
[2017-08-09] MEDS: PIPERACILLIN-TAZOBACTAM 3.375 GM in DEXTROSE/WATER 1 50ML.BAG IVPB SCH ×2 (00:30→08:58)
[2017-08-09] MEDS: LEVOTHYROXINE 125 MCG TAB PO SCH (05:39)
[2017-08-09 07:28] LABS: Glucose,Whole Blood 113 mg/dL (75-99)
[2017-08-09] MEDS: INSULIN ASPART 100 UNIT/ML 1 ML 10 ML VIAL SQ SCH ×2 (07:35→12:43)
[2017-08-09] MEDS: BUDESONIDE 1 MG/2 ML NEBU INHALATION SCH (08:32)
[2017-08-09] MEDS: IPRATROPIUM-ALBUTEROL 3 ML NEB INHALATION SCH ×3 (08:32→16:15)
[2017-08-09] MEDS: FORMOTEROL FUMARATE 20 MCG/2 ML NEBU INHALATION SCH (08:33)
[2017-08-09 08:39] VITALS: BP 127/69
[2017-08-09] MEDS: GABAPENTIN 100 MG CAP PO SCH (08:59)
[2017-08-09] MEDS: ENOXAPARIN 40 MG/0.4 ML SYRINGE SQ SCH (08:59)
[2017-08-09] MEDS: TOPIRAMATE 25 MG TAB PO SCH (08:59)
[2017-08-09] MEDS: DULoxetine HCL 60 MG CAPSULE.DR PO SCH (09:00)
[2017-08-09] MEDS: amLODIPine 5 MG TAB PO SCH (09:00)
[2017-08-09] MEDS: ESCITALOPRAM 10 MG TAB PO SCH (09:00)
[2017-08-09] MEDS: acetaZOLAMIDE 250 MG TAB PO SCH (09:00)
[2017-08-09] MEDS: guaiFENesin 600 MG TABLET.ER PO SCH (09:00)
[2017-08-09] MEDS: CHOLECALCIFEROL 1,000 UNIT TAB PO SCH (09:00)
[2017-08-09] MEDS: DOCUSATE 100 MG CAP PO SCH (09:01)
[2017-08-09] MEDS: LORATADINE 10 MG TAB PO SCH (09:01)
[2017-08-09] MEDS: METOPROLOL SUCCINATE (ER) 25 MG TAB.ER.24H PO SCH (09:02)
[2017-08-09] MEDS: FLUCONAZOLE 100 MG TAB PO SCH (09:02)
[2017-08-09] MEDS: BISACODYL 10 MG SUPP RECTAL SCH (09:02)
[2017-08-09] MEDS: PANTOPRAZOLE 40 MG TABLET PO SCH (09:02)
[2017-08-09] MEDS: ASPIRIN 81 MG PO SCH (09:02)
[2017-08-09] MEDS: SENNOSIDES-DOCUSATE SODIUM 1 EACH TAB PO SCH (09:03)
[2017-08-09] MEDS: NALDEMEDINE TOSYLATE 0.2 MG PO SCH (09:03)
[2017-08-09] MEDS: ESCITALOPRAM 5 MG TAB PO SCH (09:08)
[2017-08-09] MEDS: HYDROcodone/APAP 7.5-325MG 1 EACH TAB PO SCH (09:09)
[2017-08-09] MEDS: ALPRAZolam 0.25 MG TAB PO SCH (09:09)
[2017-08-09] MEDS: FUROSEMIDE 10 MG/ML 10 ML VIAL IV SCH (09:10)
[2017-08-09 10:17] LABS: Albumin 3.1 g/dL (3.5-5.0); Calcium 9.2 mg/dL (8.4-10.2); Potassium 4.1 mmol/L (3.5-5.1); Total Bilirubin 0.6 mg/dL (0.2-1.3); Total Protein 5.5 g/dL (6.3-8.2)
[2017-08-09 11:20] LABS: Glucose,Whole Blood 132 mg/dL (75-99)
[2017-08-09] MEDS: LIDOCAINE VISCOUS 2% 15 ML CUP MUCOUS MEM PRN (12:43)
--- NOTE | 2017-08-09 13:12 | P.DS ---
Providers Date of admission: 08/03/17 18:13 Attending physician: Edilberto Lopez MD Consults: 08/03/17 18:13 Consult Physician Stat Consulting Provider: Celena Arita Consult Reason/Comments: Soreness of breath, asthma, COPD Do you want consulting provider notified?: Yes Consult Physician Urgent Consulting Provider: Zeke Kellogg Consult Reason/Comments: Elevated troponin, history of ischemic heart Do you want consulting provider notified?: Yes 08/06/17 12:32 Consult Physician Stat Consulting Provider: Grant Rdz Consult Reason/Comments: impaction Do you want consulting provider notified?: Yes Primary care physician: Gracia Elizabeth [facility] Course: 77-year-old female patient of Dr. Elizabeth currently residing at [facility] with past medical history COPD on 4 L Oxygen , hypertension, obstructive sleep apnea on BiPAP at nighttime, chronic pain, gastric esophageal reflux disease, hypothyroidism, ALLERGIC rhinitis, osteoarthritis, idiopathic peripheral autonomic neuropathy, chronic urinary tract infections, vitamin D deficiency, morbid obesity, bed bound forthe past 13 years, h/o prolonged intubation leading to tracheostomy which was finally removed, has been bedbound ever seen. Patient was just discharged on 07/27 to [facility] after treating her for acute hypoxic respiratory failure from bilateral lower lobe pneumonia with accompanying of tracheobronchitis for COPD exacerbation. Patient was also treated for acute diastolic heart failure during that admission. On discharge patient was back on her baseline of 4 L. According to the daughter patient was gradually uptitrated on her oxygen in the last few days. She was coughing up since discharge and has not gotten better since discharge. Patient endorses chills denies fever. She does feel short of breath and productive cough with greenish in color. Patient denies any history of DVT or pulmonary embolism in the past. She appears to be mentating well. Currently requiring 10 L of high flow on the oxygen. Vitals otherwise is stable with blood pressure 114/55, afebrile tachypneic to 20. Labs suggestive a leukocytosis of 20, d-dimer was normal. ABG was conducted this morning suggested a CO2 of 63 and pO2 114 at FiO2 of 60%. Influenza was negative 08/05: Patient has been refusing to be turned in bed during the night. Specialty mattress ordered. Patient is also refusing to do incentive spirometry. Patient has had no bowel movement is is feeling constipated. She is starting on MiraLAX and Senokot. Dulcolax suppository will be added. Patient does have some abdominal distention and x-rays will be requested. Cardiology is following the patient with no change in medications. They are now following the patient on an as-needed basis. Pulmonary medicine is also on consult. Discussed with patient the need to cooperate with the nurses to prevent further breakdown in her skin. Patient has a stage II decubitus ulcer to the coccyx area. Patient is followed by both cardiology and pulmonary medicine. No medication changes made today. Patient is continued on Solu- Medrol 60 mg IV every 6 hours. She is on IV vancomycin and Zosyn. Daughter is at the bedside and all questions of been answered. 08/06. Patient examined bedside. Still requiring 8 L of high flow oxygen. Patient did have a large bowel movement in response to Dulcolax suppository. Patient underwent abdominal x-ray that concern for fecal impaction. Patient complains of increased abdominal tenderness since her last bowel movement. Repeat abdominal x-ray was ordered to rule out obstruction which is negative. Surgery consult for any further recommendation on impaction which appears to be resolved. We will repeat a Dulcolax suppository today for fecal stasis. Increased Lasix dose to 60 IV twice a day. Continue Zosyn and hold vancomycin. Sputum culture pending 08/07 patient continues to require 8 L NC. Seen lying comfortably in bed. Continue to diurize with iv lasix. Patient abdominal pain is better than yesterday. Still continues to tender diffusely. Surgery to evaluate the patient. 08/08 patient was evaluated at the bedside today. she continues on 6 L of O2 via nasal cannula, repeat chest x-ray shows slight interval improvement in aeration and no other significant change. she reports her abdominal pain has improved. She is tolerating oral intake, no nausea vomiting. she complains of some mouth soreness, has had multiple thrush infections in the past, will do nystatin swish and swallow per her request. patient reports she would like to stay one more day before going back to her ECF, will plan for discharge tomorrow 08/09 Patient was evaluated and seen today. She is doing well, no new complaints today. Patient did not receive nystatin swish and swallow, she received magic mouth wash instead, will continue with this. She will be discharged back to [facility] with prednisone taper and aumgentin. She will continue with 2000 ml fluid restrictions. Discharge diagnosis 1. Acute respiratory insufficiency secondary to acute on chronic diastolic heart failure and COPD exacerbation/acute bronchitis with healthcare associated pneumonia 2. Acute on chronic diastolic heart failure. 3. Morbid obesity with PALM[place] 4 Medical debility, bedbound 5. GERD. 6. Hypertension and hypertensive cardiovascular disease. 7. Hyperlipidemia. 8. Hypothyroidism. 9. Peripheral neuropathy. 10. Depressive disorder. 11. Osteoarthritis with joint deformities including the right hand as well as bilateral lower extremity's. 12. Anxiety disorder. 13. ALLERGIC rhinitis. 14. Fecal impaction status post Dulcolax suppository. The above impression and plan of care have been discussed and directed by signing physician. Maribeth Gonzalez nurse practitioner acting as scribe for signing physician. Patient Condition at Discharge: Good Plan - Discharge Summary Discharge Rx Participant: No New Discharge Prescriptions: New ALPRAZolam [Xanax] 0.25 mg PO TID PRN #20 tab PRN Reason: Anxiety Amoxic-Pot Clav 875-125Mg [Augmentin 875-125] 1 tab PO Q12HR #16 tablet Bisacodyl [Dulcolax] 10 mg RECTAL DAILY supp Docusate [Colace] 100 mg PO BID cap Enoxaparin [Lovenox] 40 mg SQ DAILY syringe Hydrocodone/Acetaminophen [[place] 7.5-325] 1 tab PO BID #14 tab Ipratropium-Albuterol Nebulize [Duoneb 0.5 mg-3 mg/3 ml Soln] 3 ml INHALATION RT-QID ampul.neb Magic Cup 1 each PO BID-W/MEALS #14 dose Polyethylene Glycol 3350 [Miralax] 17 gm PO HS powd.pack predniSONE [Deltasone] 20 mg PO DAILY #18 tablet Continue amLODIPine [Norvasc] 5 mg PO DAILY Aspirin 81 mg PO DAILY Acetaminophen Tab [Tylenol] 500 mg PO Q6H PRN MDD 4000MG PER 24HR PRN Reason: Pain Or Fever > 100.5 Sodium Chloride [Saline Mist] 2 spray NASAL DAILY PRN PRN Reason: DRYNESS Ondansetron HCl [Zofran] 4 mg PO Q6H PRN PRN Reason: Nausea Polyethylene Glycol 3350 [Miralax] 17 gm PO HS Magnesium Hydroxide [Milk of Magnesia] 2,400 mg PO DAILY PRN PRN Reason: Constipation Ipratropium-Albuterol Nebulize [Duoneb 0.5 mg-3 mg/3 ml Soln] 3 ml INHALATION RT-Q4H PRN PRN Reason: BRONCHODILATOR Topiramate [Topamax] 50 mg PO BID Gabapentin [Neurontin] 200 mg PO BID DULoxetine HCL [Cymbalta] 60 mg PO BID Metoprolol Succinate [Toprol XL] 25 mg PO DAILY Cholecalciferol [Vitamin D3] 2,000 unit PO DAILY Omeprazole [PriLOSEC] 20 mg PO DAILY@0600 Loratadine [Claritin] 10 mg PO DAILY Lidocaine 5% Patch [Lidoderm 5% Patch] 1 patch TOPICAL Q12H PRN MDD 2 patches PRN Reason: joint pain Levothyroxine Sodium [Synthroid] 125 mcg PO DAILY@0600 Escitalopram [Lexapro] 10 mg PO DAILY Bismuth Subsalicylate [Pepto-Bismol] 524 mg PO Q4H PRN PRN Reason: Diarrhea/upset stomach Ipratropium-Albuterol Nebulize [Duoneb 0.5 mg-3 mg/3 ml Soln] 3 ml INHALATION RT-Q4H Sennosides-Docusate Sodium [Senokot-S] 2 tab PO BID QUEtiapine [SEROquel] 25 mg PO HS Naldemedine Tosylate [Symproic] 0.2 mg PO DAILY guaiFENesin [Mucinex] 1,200 mg PO BID #20 tab.er.12h Furosemide [Lasix] 40 mg PO BID@0900,1600 tab Lidocaine Viscous 2% [Xylocaine Viscous] 5 ml MUCOUS MEM Q4H PRN ml PRN Reason: Sore Throat ALPRAZolam [Xanax] 0.25 mg PO TID #90 tab Hydrocodone/Acetaminophen [[place] 7.5-325] 1 tab PO Q6HR PRN #60 tab PRN Reason: Pain Hydrocodone/Acetaminophen [[place] 7.5-325] 1 tab PO BID #60 tab Levofloxacin [Levaquin] 500 mg PO DAILY #8 acetaZOLAMIDE [Diamox] 250 mg PO DAILY Budesonide [Pulmicort] 1 mg INHALATION RT-BID Escitalopram [Lexapro] 5 mg PO DAILY Fluconazole [Diflucan] 100 mg PO DAILY Melatonin 10 mg PO HS Nystatin 100,000 Unit/ml Susp [Mycostatin Oral Susp] 5,000,000 units PO DIRECTED Discontinued predniSONE See Taper PO DIRECTED Discharge Medication List Acetaminophen Tab [Tylenol] 500 mg PO Q6H PRN MDD 4000MG PER 24HR 01/12/17 [ History] Aspirin 81 mg PO DAILY 01/12/17 [History] Cholecalciferol [Vitamin D3] 2,000 unit PO DAILY 01/12/17 [History] DULoxetine HCL [Cymbalta] 60 mg PO BID 01/12/17 [History] Escitalopram [Lexapro] 10 mg PO DAILY 01/12/17 [History] Gabapentin [Neurontin] 200 mg PO BID 01/12/17 [History] Ipratropium-Albuterol Nebulize [Duoneb 0.5 mg-3 mg/3 ml Soln] 3 ml INHALATION RT -Q4H PRN 01/12/17 [History] Levothyroxine Sodium [Synthroid] 125 mcg PO DAILY@0600 01/12/17 [History] Lidocaine 5% Patch [Lidoderm 5% Patch] 1 patch TOPICAL Q12H PRN MDD 2 patches [History] Loratadine [Claritin] 10 mg PO DAILY 01/12/17 [History] Magnesium Hydroxide [Milk of Magnesia] 2,400 mg PO DAILY PRN 01/12/17 [History] Metoprolol Succinate [Toprol XL] 25 mg PO DAILY 01/12/17 [History] Omeprazole [PriLOSEC] 20 mg PO DAILY@0600 01/12/17 [History] Ondansetron HCl [Zofran] 4 mg PO Q6H PRN 01/12/17 [History] Polyethylene Glycol 3350 [Miralax] 17 gm PO HS 01/12/17 [History] Sodium Chloride [Saline Mist] 2 spray NASAL DAILY PRN 01/12/17 [History] Topiramate [Topamax] 50 mg PO BID 01/12/17 [History] amLODIPine [Norvasc] 5 mg PO DAILY 01/12/17 [History] Bismuth Subsalicylate [Pepto-Bismol] 524 mg PO Q4H PRN 07/21/17 [History] Ipratropium-Albuterol Nebulize [Duoneb 0.5 mg-3 mg/3 ml Soln] 3 ml INHALATION RT -Q4H 07/21/17 [History] Naldemedine Tosylate [Symproic] 0.2 mg PO DAILY 07/21/17 [History] QUEtiapine [SEROquel] 25 mg PO HS 07/21/17 [History] Sennosides-Docusate Sodium [Senokot-S] 2 tab PO BID 07/21/17 [History] ALPRAZolam [Xanax] 0.25 mg PO TID #90 tab 07/27/17 [Rx] Furosemide [Lasix] 40 mg PO BID@0900,1600 tab 07/27/17 [Rx] Hydrocodone/Acetaminophen [[place] 7.5-325] 1 tab PO BID #60 tab 07/27/17 [Rx] Hydrocodone/Acetaminophen [[place] 7.5-325] 1 tab PO Q6HR PRN #60 tab 07/27/17 [Rx ] Levofloxacin [Levaquin] 500 mg PO DAILY #8 07/27/17 [Rx] Lidocaine Viscous 2% [Xylocaine Viscous] 5 ml MUCOUS MEM Q4H PRN ml 07/27/17 [ Rx] guaiFENesin [Mucinex] 1,200 mg PO BID #20 tab.er.12h 07/27/17 [Rx] Budesonide [Pulmicort] 1 mg INHALATION RT-BID 08/03/17 [History] Escitalopram [Lexapro] 5 mg PO DAILY 08/03/17 [History] Fluconazole [Diflucan] 100 mg PO DAILY 08/03/17 [History] Melatonin 10 mg PO HS 08/03/17 [History] Nystatin 100,000 Unit/ml Susp [Mycostatin Oral Susp] 5,000,000 units PO DIRECTED 08/03/17 [History] acetaZOLAMIDE [Diamox] 250 mg PO DAILY 08/03/17 [History] ALPRAZolam [Xanax] 0.25 mg PO TID PRN #20 tab 08/09/17 [Rx] Amoxic-Pot Clav 875-125Mg [Augmentin 875-125] 1 tab PO Q12HR #16 tablet [Rx] Bisacodyl [Dulcolax] 10 mg RECTAL DAILY supp 08/09/17 [Rx] Docusate [Colace] 100 mg PO BID cap 08/09/17 [Rx] Enoxaparin [Lovenox] 40 mg SQ DAILY syringe 08/09/17 [Rx] Hydrocodone/Acetaminophen [[place] 7.5-325] 1 tab PO BID #14 tab 08/09/17 [Rx] Ipratropium-Albuterol Nebulize [Duoneb 0.5 mg-3 mg/3 ml Soln] 3 ml INHALATION RT -QID ampul.neb 08/09/17 [Rx] Magic Cup 1 each PO BID-W/MEALS #14 dose 08/09/17 [Rx] Polyethylene Glycol 3350 [Miralax] 17 gm PO HS powd.pack 08/09/17 [Rx] predniSONE [Deltasone] 20 mg PO DAILY #18 tablet 08/09/17 [Rx] Follow up Appointment(s)/Referral(s): Gracia Elizabeth MD [Primary Care Provider] - 1-2 days Celena Arita MD [STAFF PHYSICIAN] - 1 Week Activity/Diet/Wound Care/Special Instructions: 5L O2 via NC activity as tolerated Diet Heart Healthy with 2L fluid restrict Discharge Disposition: TRANSFER TO SNF/ECF
[2017-08-09 16:15] VITALS: RESP 16
[2017-08-09 16:33] VITALS: PULSE 100
--- NOTE | 2017-08-09 16:40 | P.PN ---
Subjective Progress Note Date: 08/09/17 Principal diagnosis: Dyspnea, multifactorial, related to underlying fluid overload, and acute COPD exacerbation, with acute on chronic hypoxemic and hypercapnic respiratory failure Shortness of breath Progress note dated 08/06/2017 This is a 77-year-old bedbound woman with complaints of shortness of breath, secondary to both overload and COPD exacerbation. She has a history of acute on chronic hypoxemic and hypercapnic respiratory failure congestive heart failure GERD hyperlipidemia hypertension sleep apnea syndrome currently on BiPAP , degenerative joint disease hypothyroidism previous episode of respiratory failure with prolonged mechanical ventilation status post tracheostomy tube and PEG tube, history of vancomycin-resistant enterococci and Proteus mirabilis urinary tract infections, vitamin D deficiency, morbid obesity, generalized anxiety disorder and multiple other medical problems and comorbidities. Today, the patient states that her breathing is just fine. She remains on nasal O2. She states that she is feeling a lot of tenderness and pain in her abdominal area and does not want anybody to touch it. She states that she was given a suppository yesterday. The patient is a permanent resident at [facility] on the [facility]. She apparently is been bedbound for more than 10 years. Progress note dated 08/07/2017 This is a 77-year-old female with history of shortness of breath, likely secondary to fluid overload as well as COPD exacerbation. She has a history of acute on chronic hypoxemic and hypercapnic respiratory failure, CHF, severe immobility and being bedbound for more than 10 years, GERD, hyperlipidemia, hypertension, sleep apnea syndrome, DJD, hypothyroidism, previous episode of respiratory failure with prolonged mechanical ventilation status post tracheostomy and PEG tube placement, vancomycin-resistant enterococci and Proteus mirabilis UTIs, vitamin D deficiency, morbid obesity, generalized anxiety disorder and multiple other medical problems and comorbidities. The patient is quite debilitated. She is feeling a bit better. Her belly pain which is her major concern yesterday has improved somewhat. She denies any chest pain or chest discomfort. No shortness of breath. She is wearing nasal oxygen. She is a permanent resident at one of the [facility]. On 08/08/2017 patient seen in follow-up. She is resting comfortably in bed, denies any acute distress. She is currently on 5 L per nasal cannula with O2 sat at 95%. She is afebrile, hemodynamically stable. Patient is receiving IV diuretics with Lasix 60 mg IV every 12 hours. Her net fluid balance is difficult to estimate as the patient is incontinent of urine. Patient's weight is 95.2 kg today, up from 95 kg from yesterday. Lung sounds are positive for diffuse scattered rhonchi, patient has a congested nonproductive cough. No wheezes noted. Patient states her abdominal discomfort is much improved, she has had several episodes of bowel activity, and she feels much relieved. Her abdomen is soft and nontender. She is tolerating oral intake, no nausea or vomiting. She is on Zosyn, the chest x-rays were negative for any evidence of pneumonia. Patient has been afebrile, on blood work yesterday her WBC was 15.7. Her sputum culture from last admission was only positive for Hannah albicans, blood cultures were negative at that time as well. Patient denies any urinary symptoms. She continues on IV Solu-Medrol at 60 mg every 6 hours, nebulized treatments. Patient is refusing to do her incentive spirometry, and she wants to be on 6 L per nasal cannula at all times, she feels that the optimal amount of oxygen for her. On 08/09/2017 patient seen in follow-up on medical surgical floor. Lung sounds are clear to auscultation, no rhonchi, no wheezes or rales noted. He denies any worsening dyspnea, she denies any chest pain, denies any fever or chills. She is on 5 L per nasal cannula with O2 sat at 91-97%. Today's chest x-ray showed slight interval improvement in aeration, improvement in the interstitium. Patient has been receiving IV diuretics. Today's weight is 94 kg , down from 95.2 kg. Patient has been placed on fluid restriction, and she is very upset about that. Patient's vital signs remain stable, she is afebrile, hemodynamically stable. Today's blood work shows sodium of 137, potassium is 4.1, chloride is 89, BUN is 43, creatinine is 1.07. Patient remains stable from pulmonary standpoint, and could be discharged back to [facility] on the [place] today. Objective - Vital Signs Vital signs: Vital Signs Temp 97.5 F L 08/08/17 21:25 Pulse 100 08/09/17 16:25 Resp 16 08/09/17 16:25 BP 127/69 08/09/17 07:00 Pulse Ox 91 L 08/09/17 07:00 Intake & Output 08/08/17 08/09/17 08/09/17 18:59 06:59 18:59 Intake Total 160 130 50 Output Total 1 Balance 160 129 50 Weight 95.2 kg 94 kg Intake: IV 160 80 0.9 160 80 Intake, IV Titration 50 50 Amount Piperacillin-Tazobactam 3 50 50 .375 gm In Dextrose/Water 1 50ml.bag @ 12.5 mls/hr IVPB Q8HR [facility] Rx#: [id number] Output: Urine 0 Stool 1 Other: Voiding Method Bedpan Diaper Diaper Diaper Incontinent Incontinent Incontinent # Voids 4 1 # Bowel Movements 1 1 - Exam GENERAL EXAM: Alert, pleasant, obese 77-year-old white female, chronically bedbound, seen resting in bed in no apparent distress comfortable in no apparent distress HEAD: Normocephalic/atraumatic. EYES: Normal reaction of pupils, equal size. Conjunctiva pink, sclera white. NOSE: Clear with pink turbinates. THROAT: No erythema or exudates. NECK: No masses, no JVD, no thyroid enlargement, no adenopathy. CHEST: No chest wall deformity. Symmetrical expansion. LUNGS: Equal air entry with no rhonchi, no rales or wheezes CVS: Regular rate and rhythm, normal S1 and S2, no gallops, no murmurs, no rubs ABDOMEN: Soft, nontender. No hepatosplenomegaly, normal bowel sounds, no guarding or rigidity. EXTREMITIES: No clubbing, no edema, no cyanosis, there is chronic foot drop noted bilaterally, and chronic venous stasis discoloration on both pretibial areas MUSCULOSKELETAL: Muscle strength and tone normal. SPINE: No scoliosis or deformity SKIN: No rashes CENTRAL NERVOUS SYSTEM: Alert and oriented -3. No focal deficits, tone is normal in all 4 extremities. PSYCHIATRIC: Alert and oriented -3. Appropriate affect. Intact judgment and insight. - Labs CBC & Chem 7: 08/07/17 06:11 08/09/17 09:20 Labs: Abnormal Lab Results - Last 24 Hours (Table) 08/08/17 08/08/17 08/09/17 Range/Units 17:23 20:09 07:21 Chloride (98-107) mmol/L Carbon Dioxide (22-30) mmol/L BUN (7-17) mg/dL Creatinine (0.52-1.04) mg/dL Glucose (74-99) mg/dL POC Glucose (mg/dL) 120 H 209 H 113 H (75-99) mg/dL Alkaline Phosphatase (38-126) U/L Total Protein (6.3-8.2) g/dL Albumin (3.5-5.0) g/dL 08/09/17 08/09/17 Range/Units 09:20 11:14 Chloride 89 L (98-107) mmol/L Carbon Dioxide 38 H (22-30) mmol/L BUN 43 H (7-17) mg/dL Creatinine 1.07 H (0.52-1.04) mg/dL Glucose 160 H (74-99) mg/dL POC Glucose (mg/dL) 132 H (75-99) mg/dL Alkaline Phosphatase 34 L (38-126) U/L Total Protein 5.5 L (6.3-8.2) g/dL Albumin 3.1 L (3.5-5.0) g/dL Microbiology - Last 24 Hours (Table) 08/08/17 21:08 Gram Stain - Preliminary Sputum Sputum Culture - Preliminary Assessment and Plan Plan: Assessment: #1. Acute on chronic hypoxemic and hypercapnic respiratory failure secondary to acute COPD exacerbation, and mild fluid overload #2. Chronic diastolic congestive heart failure, with a EF between 55-60% #3. History of GERD #4. History of hyperlipidemia #5. History of hypertension #6. Sleep apnea syndrome, currently on home BiPAP therapy #7. DJD #8. Hypothyroidism #9. Previous episode of respiratory failure with prolonged mechanical ventilation, status post tracheostomy tube and PEG tube placement #10. History of vancomycin-resistant enterococci and Proteus mirabilis urinary tract infections #11. Vitamin D deficiency #12. Morbid obesity. #13. Generalized anxiety disorder #14. Multiple other medical problems and comorbidities Plan: Patient remains stable from pulmonary standpoint, as today's chest x-ray showed some improvement in the aeration of the interstitium. Clinically patient denies any worsening dyspnea, denies any chest congestion, fever, chills. She has been diuresed with IV Lasix, which we can stop today. Patient is becoming slightly prerenal. From pulmonary standpoint she is clear for discharge back to the [facility] on the [place]. No clear evidence of pneumonia noted on the chest x -ray. She can continue on her maintenance inhalers and nebulized treatments. We will sign off, thank you for this consultation. I performed a history & physical examination of the patient and discussed their management with my nurse practitioner, Delaney Waters. I reviewed the nurse practitioner's note and agree with the documented findings and plan of care. Lung sounds are clear. The findings and the impression was discussed with the patient. I attest to the documentation by the nurse practitioner. Time with Patient: Less than 30
== END 2017-08-09 17:37 | DRG 291 ==
LOC: EC 13:32 → EEVIPCON 13:32 → 6SEL 18:13 → 5MS5E 08-07 22:29
PROVIDERS: ADMIT Internal Medicine; ATTEND Internal Medicine
DX: I11.0 Hypertensive heart disease with heart failure (principal); J18.9 Pneumonia, unspecified organism; J96.21 Acute and chronic respiratory failure with hypoxia; L89.152 Pressure ulcer of sacral region, stage 2; G62.9 Polyneuropathy, unspecified; G82.20 Paraplegia, unspecified; I27.20 Pulmonary hypertension, unspecified; I48.91 Unspecified atrial fibrillation; E66.01 Morbid (severe) obesity due to excess calories; I08.1 Rheumatic disorders of both mitral and tricuspid valves; J96.22 Acute and chronic respiratory failure with hypercapnia; J44.0 Chronic obstructive pulmonary disease with (acute) lower respiratory infection; J44.1 Chronic obstructive pulmonary disease with (acute) exacerbation; Y95 Nosocomial condition; I50.33 Acute on chronic diastolic (congestive) heart failure; G47.33 Obstructive sleep apnea (adult) (pediatric); Z74.01 Bed confinement status; M19.90 Unspecified osteoarthritis, unspecified site; K21.9 Gastro-esophageal reflux disease without esophagitis; E55.9 Vitamin D deficiency, unspecified; E03.9 Hypothyroidism, unspecified; E78.5 Hyperlipidemia, unspecified; F32.9 Major depressive disorder, single episode, unspecified; Z79.82 Long term (current) use of aspirin; Z79.899 Other long term (current) drug therapy; Z79.890 Hormone replacement therapy; F41.1 Generalized anxiety disorder; G89.4 Chronic pain syndrome; I25.10 Atherosclerotic heart disease of native coronary artery without angina pectoris; I49.1 Atrial premature depolarization; K56.41 Fecal impaction; M06.9 Rheumatoid arthritis, unspecified; R32 Unspecified urinary incontinence; Z82.3 Family history of stroke; Z87.440 Personal history of urinary (tract) infections; Z87.891 Personal history of nicotine dependence; Z96.642 Presence of left artificial hip joint; Z88.3 Allergy status to other anti-infective agents; Z68.31 Body mass index [BMI] 31.0-31.9, adult
CPT/HCPCS: 36415; 36600; 71045; 71046; 74018; 80048; 80053; 80061; 80202; 82550; 82553; 82805; 83605; 83735; 83880; 84132; 84484; 85025; 85379; 85610; 85730; 87070; 87205; 87502; 93005; 94640; 96365; 96366; 96367; 96368; 96375; 96376; 99285

== ENCOUNTER 2017-09-20 02:08 | Inpatient (IN) | payer MEDICARE, OTHER ==
[2017-09-20 03:44] LABS: Anisocytosis Slight; Basophils # (A) 0.1 k/uL (0-0.2); Basophils % (A) 0 %; Eosinophils % (A) 0 %; HCT 34.8 % (34.0-46.0); HGB 10.5 gm/dL (11.4-16.0); Hypochromasia Marked; Lymphocytes % (A) 8 %; MCH 26.4 pg (25.0-35.0); MCHC 30.2 g/dL (31.0-37.0); Mean Platelet Volume 7.3; Monocytes # (A) 0.6 k/uL (0-1.0); Monocytes % (A) 5 %; Neutrophils # (A) 11.6 k/uL (1.3-7.7); Neutrophils % (A) 86 %; Platelet Count 588 k/uL (150-450); Poikilocytosis Moderate; RBC 3.98 m/uL (3.80-5.40); RDW 17.6 % (11.5-15.5); WBC 13.5 k/uL (3.8-10.6)
[2017-09-20 03:49] LABS: ALT <6 U/L (9-52); AST 50 U/L (14-36); Albumin 3.1 g/dL (3.5-5.0); Alkaline Phosphatase 32 U/L (38-126); Amylase 38 U/L (30-110); Anion Gap 14 mmol/L; Blood Urea Nitrogen 29 mg/dL (7-17); Calcium 9.4 mg/dL (8.4-10.2); Carbon Dioxide 32 mmol/L (22-30); Chloride 90 mmol/L (98-107); Glucose 125 mg/dL (74-99); Lipase 41 U/L (23-300); Potassium 4.3 mmol/L (3.5-5.1); Sodium 136 mmol/L (137-145); Total Bilirubin 0.6 mg/dL (0.2-1.3)
[2017-09-20 04:24] LABS: MCV 87.5 fL (80.0-100.0)
[2017-09-20 04:30] LABS: Partial Thromboplastin Time 25.5 sec (22.0-30.0); Prothrombin Time 10.2 sec (9.0-12.0)
[2017-09-20 04:55] LABS: Amorphous Sediment,Urine Moderate /hpf; Appearance,Urine Turbid (Clear); Bacteria,Urine Occasional /hpf; Bilirubin,Urine Negative (Negative); Blood,Urine Small (Negative); Color,Urine Yellow; Glucose,Urine (UA) Negative (Negative); Hyaline Casts,Urine 34 /lpf (0-2); Ketones,Urine Negative (Negative); Leukocyte Esterase,Urine Large (Negative); Mucus,Urine Few /hpf; Nitrite,Urine Negative (Negative); Protein,Urine 2+ (Negative); RBC,Urine 28 /hpf (0-5); Squamous Epithelial Cell,Urine 1 /hpf (0-4); Triple Phosphate Crystal,Urine Many /hpf; Urobilinogen,Urine <2.0 mg/dL (<2.0); WBC,Urine >182 /hpf (0-5)
--- NOTE | 2017-09-20 05:24 | XR ---
EXAM: XR Chest, 1 View CLINICAL HISTORY: Pain TECHNIQUE: Frontal view of the chest. COMPARISON: August 08, 2017 FINDINGS: Lungs: Unremarkable. No consolidation. Pleural space: Unremarkable. No pneumothorax. Heart: Prominence the cardiac silhouette unchanged from prior study. Mediastinum: Unremarkable. Bones/joints: Unremarkable. IMPRESSION: No significant change from prior study
[2017-09-20] MEDS ORDERED: LEVOFLOXACIN 750MG-D5W PMX 750 MG in DEXTROSE/WATER 1 150ML.BAG IVPB STA (06:24)
[2017-09-20] MEDS ORDERED: ACETAMINOPHEN TAB 325 MG TAB PO PRN (06:41)
[2017-09-20] MEDS ORDERED: NALOXONE 0.4 MG/ML 1 ML VIAL IV PRN (06:41)
--- NOTE | 2017-09-20 07:29 | ED ---
SOB HPI - General Chief Complaint: Shortness of Breath Stated Complaint: hypoxia Time Seen by Provider: 09/20/17 02:48 Source: EMS Mode of arrival: EMS Limitations: no limitations - History of Present Illness Initial Comments: This patient is a 77-year-old woman sent in from [facility] to be evaluated for shortness of breath. Patient reportedly does require oxygen, and there is a question whether the patient's oxygen supply had failed at the [facility]. EMS did report that the patient had not been on oxygen for a period time. They placed her on oxygen for transport, and when I see the patient, she is no longer complaining shortness of breath. The patient here is indicating some abdominal pain that is been going on for months, is diffuse, seems to sometimes move to different parts of the abdomen. The patient is having difficult time characterizing the pain definitively. The patient also reportedly has had episodic diarrhea, none today. No vomiting. MD Complaint: shortness of breath -: unknown Consistency: now resolved Improves With: oxygen Worsens With: lying flat Known History Of: congestive heart failure Associated Symptoms: abdominal pain Treatments Prior to Arrival: oxygen - Related Data Home Medications Medication Instructions Recorded Confirmed Aspirin 81 mg PO BID 01/12/17 09/20/17 Cholecalciferol [Vitamin D3] 2,000 unit PO DAILY 01/12/17 09/20/17 DULoxetine HCL [Cymbalta] 60 mg PO BID 01/12/17 09/20/17 Gabapentin [Neurontin] 200 mg PO BID 01/12/17 09/20/17 Ipratropium-Albuterol Nebulize 3 ml INHALATION RT-Q4H PRN 01/12/17 09/20/17 [Duoneb 0.5 mg-3 mg/3 ml Soln] Levothyroxine Sodium [Synthroid] 125 mcg PO DAILY@59901/12/17 09/20/17 Lidocaine 5% Patch [Lidoderm 5% 1 patch TOPICAL Q12H PRN MDD 2 01/12/17 09/20/17 Patch] patches Loratadine [Claritin] 10 mg PO DAILY 01/12/17 09/20/17 Metoprolol Succinate [Toprol XL] 25 mg PO DAILY 01/12/17 09/20/17 Omeprazole [PriLOSEC] 20 mg PO DAILY@59901/12/17 09/20/17 Sodium Chloride [Saline Mist] 2 spray NASAL DAILY PRN 01/12/17 09/20/17 Topiramate [Topamax] 50 mg PO BID 01/12/17 09/20/17 Naldemedine Tosylate [Symproic] 0.2 mg PO DAILY 07/21/17 09/20/17 QUEtiapine [SEROquel] 12.5 mg PO HS 07/21/17 09/20/17 Sennosides-Docusate Sodium 2 tab PO BID 07/21/17 09/20/17 [Senokot-S] Budesonide [Pulmicort] 1 mg INHALATION RT-BID 08/03/17 09/20/17 Melatonin 10 mg PO HS 08/03/17 09/20/17 acetaZOLAMIDE [Diamox] 250 mg PO DAILY 08/03/17 09/20/17 Ampicillin Trihydrate 500 mg PO Q6H 09/20/17 09/20/17 Bacillus Coagulans [Digestive 1 cap PO DAILY 09/20/17 09/20/17 Advantage] Bisacodyl [Dulcolax] 10 mg RECTAL DAILY PRN 09/20/17 09/20/17 Escitalopram [Lexapro] 20 mg PO DAILY 09/20/17 09/20/17 Lactose-Reduced Food [Ensure Plus] 120 ml PO QID 09/20/17 09/20/17 Mag Hydrox/Al Hydrox/Simeth 30 ml PO Q6H 09/20/17 09/20/17 [Maalox] Triad 1 applic TOPICAL BID 09/20/17 09/20/17 Vitamins A and D [Vitamin A and D] 1 applic TOPICAL BID 09/20/17 09/20/17 Previous Rx's Medication Instructions Recorded ALPRAZolam [Xanax] 0.25 mg PO TID #90 tab 07/27/17 Furosemide [Lasix] 40 mg PO BID@0900,1600 tab 07/27/17 Hydrocodone/Acetaminophen [[place] 1 tab PO BID #60 tab 07/27/17 7.5-325] Hydrocodone/Acetaminophen [[place] 1 tab PO Q6HR PRN #60 tab 07/27/17 7.5-325] Lidocaine Viscous 2% [Xylocaine 5 ml MUCOUS MEM Q4H PRN ml 07/27/17 Viscous] Ipratropium-Albuterol Nebulize 3 ml INHALATION RT-QID ampul.neb 08/09/17 [Duoneb 0.5 mg-3 mg/3 ml Soln] Polyethylene Glycol 3350 [Miralax] 17 gm PO HS powd.pack 08/09/17 Allergies Allergy/AdvReac Type Severity Reaction Status Date / Time metronidazole [From Flagyl] Allergy Unknown Verified 09/20/17 07:00 Review of Systems ROS Statement: Those systems with pertinent positive or pertinent negative responses have been documented in the HPI. ROS Other: All systems not noted in ROS Statement are negative. Constitutional: Denies: fever Respiratory: Reports: as per HPI, dyspnea. Denies: cough, hemoptysis Cardiovascular: Reports: orthopnea. Denies: chest pain, palpitations, edema, syncope Gastrointestinal: Reports: abdominal pain, diarrhea. 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 History of Any Multi-Drug Resistant Organisms: VRE Date of last positivie culture/infection: 01/12/17 MDRO Source:: Urine Past Surgical History: Appendectomy, Orthopedic Surgery Additional Past Surgical History / Comment(s): PEG tube and trach placement with removal, left hip arthroplasty in 1995, insertion and removal of a tracheostomy tube. Past Psychological History: Anxiety, Depression Smoking Status: Former smoker Past Alcohol Use History: None Reported Past Drug Use History: None Reported - Past Family History Father Additional Family Medical History / Comment(s): at age 58 from a fall and head injury. Mother Family Medical History: CVA/TIA Additional Family Medical History / Comment(s): Mother at age 70 from a CVA. Brother(s) Additional Family Medical History / Comment(s): Patient has one brother with no major medical problems. Sister(s) Additional Family Medical History / Comment(s): Patient has one sister with no major medical problems. Daughter(s) Additional Family Medical History / Comment(s): Patient has 2 daughters no major medical problems. General Exam Limitations: no limitations General appearance: alert, in no apparent distress, obese Head exam: Present: atraumatic, normocephalic Eye exam: Present: normal appearance. Absent: scleral icterus, conjunctival injection ENT exam: Present: mucous membranes dry Respiratory exam: Present: respiratory distress (Mild tachypnea), rales ( Bilateral bases). Absent: wheezes, rhonchi, stridor, accessory muscle use, decreased breath sounds Cardiovascular Exam: Present: normal rhythm, tachycardia, normal heart sounds. Absent: systolic murmur, diastolic murmur, rubs, gallop GI/Abdominal exam: Present: soft. Absent: distended, tenderness, guarding, rebound, mass, pulsatile mass Extremities exam: Present: normal inspection Back exam: Present: normal inspection Neurological exam: Present: alert Skin exam: Present: warm, dry, intact, normal color. Absent: rash Course Vital Signs 09/20/17 09/20/17 09/20/17 02:13 02:43 02:47 Temperature 98.4 F Pulse Rate 120 H 118 H Respiratory 22 20 20 Rate Blood Pressure 118/56 157/72 O2 Sat by Pulse 100 95 Oximetry 09/20/17 09/20/17 09/20/17 03:52 05:14 06:26 Temperature 99.1 F 99.1 F Pulse Rate 113 H 106 H 107 H Respiratory 18 18 18 Rate Blood Pressure 123/67 165/77 100/60 O2 Sat by Pulse 95 97 98 Oximetry Medical Decision Making - Medical Decision Making This patient is 77-year-old woman sent in from [facility] for reported dyspnea. There is question whether there was difficulty with the patient's oxygen supply, EMS placed her on oxygen and the symptoms related to breathing have seemingly resolved. The workup does reveal degree of congestive heart failure and patient will be admitted for further treatment related to that. In addition family is quite concerned about the going on 2 months of abdominal pains and patient will have further workup for this. Case discussed with Dr. Elizabeth. The patient does have minimally elevated troponin level and this seems related to the degree of just of heart failure, will have serial cardiac enzymes. - Lab Data Result diagrams: 09/20/17 02:41 09/20/17 02:41 Lab Results 09/20/17 09/20/17 09/20/17 Range/Units 02:41 02:41 02:41 WBC 13.5 H (3.8-10.6) k/uL RBC 3.98 (3.80-5.40) m/uL Hgb 10.5 L (11.4-16.0) gm/dL Hct 34.8 (34.0-46.0) % MCV 87.5 D (80.0-100.0) fL MCH 26.4 (25.0-35.0) pg MCHC 30.2 L (31.0-37.0) g/dL RDW 17.6 H (11.5-15.5) % Plt Count 588 H (150-450) k/uL Neutrophils % 86 % Lymphocytes % 8 % Monocytes % 5 % Eosinophils % 0 % Basophils % 0 % Neutrophils # 11.6 H (1.3-7.7) k/uL Lymphocytes # 1.0 (1.0-4.8) k/uL Monocytes # 0.6 (0-1.0) k/uL Eosinophils # 0.0 (0-0.7) k/uL Basophils # 0.1 (0-0.2) k/uL Hypochromasia Marked Poikilocytosis Moderate Anisocytosis Slight PT (9.0-12.0) sec INR (<1.2) APTT (22.0-30.0) sec Sodium 136 L (137-145) mmol/L Potassium 4.3 (3.5-5.1) mmol/L Chloride 90 L (98-107) mmol/L Carbon Dioxide 32 H (22-30) mmol/L Anion Gap 14 mmol/L BUN 29 H (7-17) mg/dL Creatinine 0.90 (0.52-1.04) mg/dL Est GFR (CKD-EPI)AfAm 72 (>60 ml/min/1.73 sqM) Est GFR (CKD-EPI)NonAf 62 (>60 ml/min/1.73 sqM) Glucose 125 H (74-99) mg/dL Calcium 9.4 (8.4-10.2) mg/dL Total Bilirubin 0.6 (0.2-1.3) mg/dL AST 50 H (14-36) U/L ALT <6 L (9-52) U/L Alkaline Phosphatase 32 L (38-126) U/L Troponin I (0.000-0.034) ng/mL NT-Pro-B Natriuret Pep 3390 pg/mL Total Protein 6.0 L (6.3-8.2) g/dL Albumin 3.1 L (3.5-5.0) g/dL Amylase 38 (30-110) U/L Lipase 41 (23-300) U/L Urine Color Urine Appearance (Clear) Urine pH (5.0-8.0) Ur Specific [place] (1.001-1.035) Urine Protein (Negative) Urine Glucose (UA) (Negative) Urine Ketones (Negative) Urine Blood (Negative) Urine Nitrite (Negative) Urine Bilirubin (Negative) Urine Urobilinogen (<2.0) mg/dL Ur Leukocyte Esterase (Negative) Urine RBC (0-5) /hpf Urine WBC (0-5) /hpf Urine WBC Clumps (None) /hpf Ur Squamous Epith Cells (0-4) /hpf Triple Phos Crystals (None) /hpf Amorphous Sediment (None) /hpf Urine Bacteria (None) /hpf Hyaline Casts (0-2) /lpf Urine Mucus (None) /hpf 09/20/17 09/20/17 09/20/17 Range/Units 02:41 02:41 03:55 WBC (3.8-10.6) k/uL RBC (3.80-5.40) m/uL Hgb (11.4-16.0) gm/dL Hct (34.0-46.0) % MCV (80.0-100.0) fL MCH (25.0-35.0) pg MCHC (31.0-37.0) g/dL RDW (11.5-15.5) % Plt Count (150-450) k/uL Neutrophils % % Lymphocytes % % Monocytes % % Eosinophils % % Basophils % % Neutrophils # (1.3-7.7) k/uL Lymphocytes # (1.0-4.8) k/uL Monocytes # (0-1.0) k/uL Eosinophils # (0-0.7) k/uL Basophils # (0-0.2) k/uL Hypochromasia Poikilocytosis Anisocytosis PT 10.2 (9.0-12.0) sec INR 1.0 (<1.2) APTT 25.5 (22.0-30.0) sec Sodium (137-145) mmol/L Potassium (3.5-5.1) mmol/L Chloride (98-107) mmol/L Carbon Dioxide (22-30) mmol/L Anion Gap mmol/L BUN (7-17) mg/dL Creatinine (0.52-1.04) mg/dL Est GFR (CKD-EPI)AfAm (>60 ml/min/1.73 sqM) Est GFR (CKD-EPI)NonAf (>60 ml/min/1.73 sqM) Glucose (74-99) mg/dL Calcium (8.4-10.2) mg/dL Total Bilirubin (0.2-1.3) mg/dL AST (14-36) U/L ALT (9-52) U/L Alkaline Phosphatase (38-126) U/L Troponin I 0.092 H* (0.000-0.034) ng/mL NT-Pro-B Natriuret Pep pg/mL Total Protein (6.3-8.2) g/dL Albumin (3.5-5.0) g/dL Amylase (30-110) U/L Lipase (23-300) U/L Urine Color Yellow Urine Appearance Turbid H (Clear) Urine pH 8.0 (5.0-8.0) Ur Specific [place] 1.010 (1.001-1.035) Urine Protein 2+ H (Negative) Urine Glucose (UA) Negative (Negative) Urine Ketones Negative (Negative) Urine Blood Small H (Negative) Urine Nitrite Negative (Negative) Urine Bilirubin Negative (Negative) Urine Urobilinogen <2.0 (<2.0) mg/dL Ur Leukocyte Esterase Large H (Negative) Urine RBC 28 H (0-5) /hpf Urine WBC >182 H (0-5) /hpf Urine WBC Clumps Occasional H (None) /hpf Ur Squamous Epith Cells 1 (0-4) /hpf Triple Phos Crystals Many H (None) /hpf Amorphous Sediment Moderate H (None) /hpf Urine Bacteria Occasional H (None) /hpf Hyaline Casts 34 H (0-2) /lpf Urine Mucus Few H (None) /hpf - EKG Data -: EKG Interpreted by Me EKG shows normal: sinus rhythm, axis (Left axis deviation) Rate: tachycardia (Rate approximate 122 bpm) Interpretation: nonspecific ST-T wave changes, other (Pulmonary disease pattern) Disposition Clinical Impression: Congestive heart failure, Abdominal pain, Elevated troponin I level, Urinary tract infection Disposition: ADMITTED IP TO THIS HOSP Condition: Poor Is patient prescribed a controlled substance at d/c from ED?: No
--- NOTE | 2017-09-20 08:01 | CT ---
EXAM: CT Abdomen and Pelvis Without Intravenous Contrast CLINICAL HISTORY: CT Reason: Pain TECHNIQUE: Axial computed tomography images of the abdomen and pelvis without intravenous contrast. CTDI is 18 mGy and DLP is 964.10 mGy-cm. This CT exam was performed using one or more of the following dose reduction techniques: automated exposure control, adjustment of the mA and/or kV according to patient size, and/or use of iterative reconstruction technique. COMPARISON: 01/20/2017 FINDINGS: Lung bases: Unremarkable. No mass. No consolidation. Pleural space: Trace layering left pleural effusion noted. Minimal subsegmental changes at the lung bases noted. ABDOMEN: Liver: There is a stable cyst extending from the anterior aspect of the right lobe of the liver near the dago hepatis region measuring 3.5 x 4.1 cm from 2.7 x 4.4 cm previously. Gallbladder and bile ducts: The common bile duct is dilated with evidence of choledocholithiasis (series 6; image [id number]). Surgical material noted in the dago hepatis suggesting prior cholecystectomy. Please correlate with history. Pancreas: The pancreas is atrophic in appearance but stable. No ductal dilation. Spleen: Unremarkable. No splenomegaly. Adrenals: Unremarkable. No mass. Kidneys and ureters: There is a 3 mm calcification superior pole calyx on the left. No hydronephrosis or ureteral calcifications. Stomach and bowel: Prominent stool in the rectum with apparent wall thickening suggests a component of fecal impaction. There is stool in the distal colon without evidence of high-grade obstruction. Distended loops of small bowel scattered throughout the abdomen are nonspecific in appearance. No evidence for high-grade obstruction. No mucosal thickening. PELVIS: Appendix: The appendix is not identified on this exam. Bladder: Diffuse bladder wall thickening suggested. No stones. Reproductive: Unremarkable as visualized. ABDOMEN and PELVIS: Intraperitoneal space: Unremarkable. No free air. No significant fluid collection. Bones/joints: Marked degenerative changes of the inferior thoracic and lumbar spine. Left hip arthroplasty. Right hip degenerative changes. No acute fracture. No dislocation. Soft tissues: Unremarkable. Vasculature: Atherosclerotic calcification of the abdominal aorta. No abdominal aortic aneurysm. Lymph nodes: Unremarkable. No enlarged lymph nodes. Other findings: IMPRESSION: 1. Findings suggest prior cholecystectomy. The common bile duct is dilated with evidence of choledocholithiasis in the distal common bile duct. Please correlate with clinical exam and laboratory findings. 2. Prominent stool in the rectum with apparent wall thickening suggests a component of fecal impaction or constipation. Detailed evaluation of the pelvis is limited with artifact from left hip arthroplasty. No evidence for high-grade bowel obstruction. 3. Diffuse bladder wall thickening suggested. This may be due to incomplete distention. However, cystitis is also a consideration.
[2017-09-20] MEDS ORDERED: HEPARIN SODIUM,PORCINE 5,000 UNIT/ML 1 ML VIAL SQ SCH (09:00)
[2017-09-20] MEDS: SODIUM CHLORIDE 0.9% 1,000 ML IV SCH (09:51)
[2017-09-20] MEDS: FAMOTIDINE 20 MG TAB PO SCH ×2 (10:07→19:57)
--- NOTE | 2017-09-20 11:18 | P.CONS ---
History of Present Illness - Reason for Consult Consult date: 09/20/17 Abdominal pain Requesting physician: Gracia Elizabeth - History of Present Illness 77-year-old female with a history of morbid obesity, physical debility crippling deformities bedridden greater than 10 years, PALMIRA, idiopathic peripheral autonomic neuropathy, chronic UTIs, and CHF. Patient admitted with increased shortness of breath but according to the nursing staff her oxygen was discontinued for an unspecified amount of time. Additionally she's been reporting epigastric midabdominal pain for at least 5 years duration. She has a history of cholecystectomy unsure if she has a history of gallstones. She was evaluated in January 2017 regarding abdominal pain and underwent an EGD with no evidence of peptic ulcer disease. Previous abdominal imaging studies reported no source of her pain. No history of colonoscopy. She was recently hospitalized 2 months ago with abdominal pain provided laxatives refused rectal exam treated conservatively. No evidence of fever or chills. Denies hematemesis make easy melena. CT of the abdomen and pelvis identified dilated CBD choledocholithiasis with unremarkable LFTs. Stable cyst extending from the anterior right lobe near the dago hepatis 3.54.1 cm. Pancreatic enzymes within normal limits. White count 13.5. Hemoglobin 10.5. Platelets 588. Total bilirubin 0.6. AST 50. ALT 6. Alkaline phosphates 32. Lipase 41. BUN 29. Creatinine 0.9. INR 1.0. Troponin 0.09. BNP 3390. Review of Systems Constitutional: Denies fever, chills, sweats, weight gain, or loss. HEENT: Negative for migraines, blurred vision or loss, earaches, drainage, tinnitus, oral mucosal lesions, dysphagia, or odynophagia. CARDIAC: Negative for chest pain, arrhythmias, or palpitation. RESPIRATORY: Chronic shortness of breath. Denies hemoptysis, cough, or sputum production. GI: See HPI for pertinent findings. : Negative for hematuria, urgency, frequency, polyuria, or dysuria. GYNc: Negative vaginal discharge. MUSCULOSKELETAL: Bedridden and deformities. Negative for muscle aches, swelling , arthritis, and arthralgias. NEUROLOGIC: Negative for stroke or TIA. ENDOCRINE: Negative for thyroid problems. SKIN: Negative for rash or itching. PSYCHIATRIC: Negative history for depression and anxiety Past Medical History Past Medical History: Heart Failure, COPD, GERD/Reflux, Hyperlipidemia, Hypertension, Musculoskeletal Disorder, Neurologic Disorder, Osteoarthritis (OA) , Pneumonia, Sleep Apnea/CPAP/BIPAP, Thyroid Disorder Additional Past Medical History / Comment(s): Respiratory failure with O2 at 6L/ [place] ATC, pulmonary HTN, bilateral pneumonia, tracheobronchitis, chronic UTIs, urosepsis with prolonged intubation and has been bed bound since (15yrs), past sacral decubitus-skin reddened now per [place] but not open, recent fecal impaction , PALMIRA with Bipap use at times, chronic pain, diffuse abdominal pain for past few months, idiopathic peripheral autonomic neuropathy, arthritis in multiple joints, 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 History of Any Multi-Drug Resistant Organisms: VRE Year Discovered:: 01/12/17 MDRO Source:: Urine Past Surgical History: Appendectomy, Joint Replacement, Orthopedic Surgery Additional Past Surgical History / Comment(s): PEG tube and trach placement with removals, left hip arthroplasty in 1995, ankle fracture with ORIF/hardware. Past Anesthesia/Blood Transfusion Reactions: No Reported Reaction Smoking Status: Former smoker - Past Family History Father Family Medical History: Myocardial Infarction (ID) Additional Family Medical History / Comment(s): at age 58 from ID and had a fall with head injury. Mother Family Medical History: CVA/TIA Additional Family Medical History / Comment(s): Mother at age 70 from a CVA. Brother(s) Family Medical History: No Reported History Additional Family Medical History / Comment(s): Patient has one brother with no major medical problems. Sister(s) Family Medical History: No Reported History Additional Family Medical History / Comment(s): Patient has one sister with no major medical problems. Daughter(s) Family Medical History: No Reported History Additional Family Medical History / Comment(s): Patient has 2 daughters no major medical problems. Medications and Allergies Home Medications Medication Instructions Recorded Confirmed Type Aspirin 81 mg PO BID 01/12/17 09/20/17 History Cholecalciferol [Vitamin D3] 2,000 unit PO DAILY 01/12/17 09/20/17 History DULoxetine HCL [Cymbalta] 60 mg PO BID 01/12/17 09/20/17 History Gabapentin [Neurontin] 200 mg PO BID 01/12/17 09/20/17 History Ipratropium-Albuterol Nebulize 3 ml INHALATION RT-Q4H PRN 01/12/17 09/20/17 History [Duoneb 0.5 mg-3 mg/3 ml Soln] Levothyroxine Sodium [Synthroid] 125 mcg PO DAILY@0600 01/12/17 09/20/17 History Lidocaine 5% Patch [Lidoderm 5% 1 patch TOPICAL Q12H PRN MDD 2 01/12/17 History Patch] patches Loratadine [Claritin] 10 mg PO DAILY 01/12/17 09/20/17 History Metoprolol Succinate [Toprol XL] 25 mg PO DAILY 01/12/17 09/20/17 History Omeprazole [PriLOSEC] 20 mg PO DAILY@0600 01/12/17 09/20/17 History Sodium Chloride [Saline Mist] 2 spray NASAL DAILY PRN 01/12/17 09/20/17 History Topiramate [Topamax] 50 mg PO BID 01/12/17 09/20/17 History Naldemedine Tosylate [Symproic] 0.2 mg PO DAILY 07/21/17 09/20/17 History QUEtiapine [SEROquel] 12.5 mg PO HS 07/21/17 09/20/17 History Sennosides-Docusate Sodium 2 tab PO BID 07/21/17 09/20/17 History [Senokot-S] ALPRAZolam [Xanax] 0.25 mg PO TID #90 tab 07/27/17 09/20/17 Rx Furosemide [Lasix] 40 mg PO BID@0900,1600 tab 07/27/17 09/20/17 Rx Hydrocodone/Acetaminophen [[place] 1 tab PO BID #60 tab 07/27/17 09/20/17 Rx 7.5-325] Hydrocodone/Acetaminophen [[place] 1 tab PO Q6HR PRN #60 tab 07/27/17 09/20/17 Rx 7.5-325] Lidocaine Viscous 2% [Xylocaine 5 ml MUCOUS MEM Q4H PRN ml 07/27/17 09/20/17 Rx Viscous] Budesonide [Pulmicort] 1 mg INHALATION RT-BID 08/03/17 09/20/17 History Melatonin 10 mg PO HS 08/03/17 09/20/17 History acetaZOLAMIDE [Diamox] 250 mg PO DAILY 08/03/17 09/20/17 History Ipratropium-Albuterol Nebulize 3 ml INHALATION RT-QID ampul.neb 08/09/17 Rx [Duoneb 0.5 mg-3 mg/3 ml Soln] Polyethylene Glycol 3350 [Miralax] 17 gm PO HS powd.pack 08/09/17 09/20/17 Rx Ampicillin Trihydrate 500 mg PO Q6H 09/20/17 09/20/17 History Bacillus Coagulans [Digestive 1 cap PO DAILY 09/20/17 09/20/17 History Advantage] Bisacodyl [Dulcolax] 10 mg RECTAL DAILY PRN 09/20/17 09/20/17 History Escitalopram [Lexapro] 20 mg PO DAILY 09/20/17 09/20/17 History Lactose-Reduced Food [Ensure Plus] 120 ml PO QID 09/20/17 09/20/17 History Mag Hydrox/Al Hydrox/Simeth 30 ml PO Q6H 09/20/17 09/20/17 History [Maalox] Triad 1 applic TOPICAL BID 09/20/17 09/20/17 History Vitamins A and D [Vitamin A and D] 1 applic TOPICAL BID 09/20/17 09/20/17 History Allergies Allergy/AdvReac Type Severity Reaction Status Date / Time metronidazole [From Flagyl] Allergy Unknown Verified 09/20/17 07:00 Physical Exam Vitals: Vital Signs Temp Pulse Pulse Resp BP BP Pulse Ox 09/20/17 07:38 97.4 F L 96 18 99/48 96 09/20/17 06:26 99.1 F 107 H 18 100/60 98 09/20/17 05:14 99.1 F 106 H 18 165/77 97 09/20/17 03:52 113 H 18 123/67 95 09/20/17 02:47 20 09/20/17 02:43 118 H 20 157/72 95 09/20/17 02:13 98.4 F 120 H 22 118/56 100 Intake and Output 09/19/17 09/20/17 09/20/17 22:59 06:59 14:59 Output Total 150 Balance -150 Output: Urine 150 Other: Weight 108.862 kg General appearance: The patient is alert, oriented, in no acute distress. HET: Head is normocephalic and atraumatic. Pupils are equal and reactive. Oropharynx is clear without lesions. Neck: Supple without lymphadenopathy. Trachea midline. Heart: S1 S2. Regular rate and rhythm. Lungs: No crackles or wheezes are heard. Abdomen: Soft, mild tenderness to the midabdomen, nondistended with bowel sounds. No peritoneal signs. No palpable organomegaly or masses. Extremities: Normal skin color and turgor. No cyanosis, rash, ulceration, clubbing, or edema. Radial and pedal pulses are 2/4 bilaterally. Neurological: No focal deficits. Strength and sensation are grossly intact. Results CBC & Chem 7: 09/22/17 07:41 09/22/17 07:41 Labs: Abnormal Lab Results - Last 24 Hours (Table) 09/20/17 09/20/17 09/20/17 Range/Units 02:41 02:41 02:41 WBC 13.5 H (3.8-10.6) k/uL Hgb 10.5 L (11.4-16.0) gm/dL MCHC 30.2 L (31.0-37.0) g/dL RDW 17.6 H (11.5-15.5) % Plt Count 588 H (150-450) k/uL Neutrophils # 11.6 H (1.3-7.7) k/uL Sodium 136 L (137-145) mmol/L Chloride 90 L (98-107) mmol/L Carbon Dioxide 32 H (22-30) mmol/L BUN 29 H (7-17) mg/dL Glucose 125 H (74-99) mg/dL AST 50 H (14-36) U/L ALT <6 L (9-52) U/L Alkaline Phosphatase 32 L (38-126) U/L Troponin I 0.092 H* (0.000-0.034) ng/mL Total Protein 6.0 L (6.3-8.2) g/dL Albumin 3.1 L (3.5-5.0) g/dL Urine Appearance (Clear) Urine Protein (Negative) Urine Blood (Negative) Ur Leukocyte Esterase (Negative) Urine RBC (0-5) /hpf Urine WBC (0-5) /hpf Urine WBC Clumps (None) /hpf Triple Phos Crystals (None) /hpf Amorphous Sediment (None) /hpf Urine Bacteria (None) /hpf Hyaline Casts (0-2) /lpf Urine Mucus (None) /hpf 09/20/17 Range/Units 03:55 WBC (3.8-10.6) k/uL Hgb (11.4-16.0) gm/dL MCHC (31.0-37.0) g/dL RDW (11.5-15.5) % Plt Count (150-450) k/uL Neutrophils # (1.3-7.7) k/uL Sodium (137-145) mmol/L Chloride (98-107) mmol/L Carbon Dioxide (22-30) mmol/L BUN (7-17) mg/dL Glucose (74-99) mg/dL AST (14-36) U/L ALT (9-52) U/L Alkaline Phosphatase (38-126) U/L Troponin I (0.000-0.034) ng/mL Total Protein (6.3-8.2) g/dL Albumin (3.5-5.0) g/dL Urine Appearance Turbid H (Clear) Urine Protein 2+ H (Negative) Urine Blood Small H (Negative) Ur Leukocyte Esterase Large H (Negative) Urine RBC 28 H (0-5) /hpf Urine WBC >182 H (0-5) /hpf Urine WBC Clumps Occasional H (None) /hpf Triple Phos Crystals Many H (None) /hpf Amorphous Sediment Moderate H (None) /hpf Urine Bacteria Occasional H (None) /hpf Hyaline Casts 34 H (0-2) /lpf Urine Mucus Few H (None) /hpf CT scan - abdomen: report reviewed (Dr. Kellogg) Assessment and Plan (1) Choledocholithiasis Narrative/Plan: 77-year-old female with a history of [place], COPD O2 dependent, cholecystectomy, physical debility bedridden with crippling deformities presents with acute and chronic mid abdominal epigastric pain mild elevation of troponin with radiographic imaging reporting choledocholithiasis biliary duct dilation with unremarkable pancreatic liver enzymes. Abdominal pain possibly related to choledocholithiasis. Current Visit: Yes Status: Acute Code(s): K80.50 - CALCULUS OF BILE DUCT W/ O CHOLANGITIS OR CHOLECYST W/O OBST SNOMED Code(s): 842121407 Plan: 1. Patient's daughter is her legal guardian. ERCP was discussed with daughter she is agreeable at this time. Her underlying COPD O2 dependency puts her at an increased risk and will require pulmonary clearance if ERCP is pursued. At this time Dr. Kellogg recommends conservative measures considering her LFTs are stable and no evidence of ascending cholangitis. Continue supportive measures. Full liquids for now. Will follow closely. Daughter was updated with Dr. Kellogg's recommendations and all questions were answered to her satisfaction. The interior decorator has discussed the risks, benefits and alternative therapies for the above-mentioned procedure and for both sedation/analgesia as well as necessary blood product administration, if indicated, as they pertain to this patient. The patient has indicated understanding and acceptance of the risks and procedures discussed. Thank you for this kind referral and the opportunity to participate in the care of your patient. This consultation was discussed with Dr. Kellogg. The impression and plan of care have been directed as dictated.
[2017-09-20] MEDS: cefTRIAXone IN SWFI 1,000 MG/10 ML SYRINGE IVP SCH (11:32)
[2017-09-20] MEDS ORDERED: SODIUM CHLORIDE 0.65% NASAL SPRAY 44 ML BTL NASAL PRN (13:37)
[2017-09-20] MEDS ORDERED: HYDROcodone/APAP 7.5-325MG 1 EACH TAB PO PRN (13:37)
[2017-09-20] MEDS ORDERED: LIDOCAINE 5% PATCH TOPICAL PRN (13:37)
[2017-09-20] MEDS ORDERED: BISACODYL 10 MG SUPP RECTAL PRN (13:37)
[2017-09-20] MEDS ORDERED: IPRATROPIUM-ALBUTEROL 3 ML NEB INHALATION PRN (13:37)
[2017-09-20] MEDS ORDERED: PEG 3350-NA SULF,BICARB,CL/KCL 4,000 ML BOTTLE PO ONE (13:42)
[2017-09-20] MEDS ORDERED: MAG HYDROX/AL HYDROX/SIMETH 30 ML CUP PO PRN (13:45)
[2017-09-20] MEDS ORDERED: methylPREDNISolone SOD SUCCI 125 MG/2 ML VIAL IV SCH (13:45)
[2017-09-20] MEDS ORDERED: MAGNESIUM CITRATE 296 ML BOTTLE PO SCH (13:45)
--- NOTE | 2017-09-20 14:53 | P.CNPUL ---
<Bhavani Fernandez - Last Filed: 09/20/17 14:30> History of Present Illness Consult date: 09/20/17 Requesting physician: Gracia Elizabeth Reason for consult: dyspnea, hypoxemia Chief complaint: Shortness of breath History of present illness: This is a very pleasant 77-year-old female patient who resides at [facility] on the [place]. She has a history of chronic atrial fibrillation, diastolic congestive heart failure, gastroesophageal reflux disease, hyperlipidemia, hypertension, morbid obesity, obstructive sleep apnea and noncompliant with CPAP , idiopathic peripheral autonomic neuropathy, chronic urinary tract infections, osteoarthritis, hypothyroidism. She says a history of chronic obstructive pulmonary disease with chronic hypoxic respiratory failure and utilizes oxygen 24/. She also has a history of urosepsis complicated by prolonged ventilatory dependent respiratory failure requiring tracheostomy and PEG tube placements with subsequent removals. This is a real 13 years ago. She has been left bedridden been significantly disabled. She has crippling deformities of the upper and lower extremities. She is nonambulatory. She was complaining of shortness of breath while at [facility]. She was hypoxic with O2 saturations in the 50s according to the daughter. When EMS arrived they realized that the oxygen was not attached and brought her to the emergency room for evaluation. She is seen while in the ER. She is awake and alert in no acute distress. She does have some history of dementia. She is saturating in the mid 90s on 6 L high flow nasal cannula currently. She is slightly tachycardic. Temperature 99.1. Blood pressure stable. White count 13.5. Hemoglobin 10.5. Bicarb 32. Creatinine 0.90. Troponin 0.092, 0.295. ProBNP 3390. Urinalysis does reveal large leukocyte esterase greater than 182 WBCs and bacteria. Culture is pending. She has been initiated on Rocephin. Her chest x-ray shows no significant change from previous study 08/08/2017. No consolidations. No pneumothorax. She was also having complaints of abdominal discomfort and abdominal computed tomography scan was done which revealed choledocholelithiasis in the distal common bile duct. There is also prominent stool in the rectum with apparent wall thickening suggestive of component of fecal impaction or constipation. There is also diffuse bladder wall thickening considered for cystitis. GI services has been consulted. They're recommending conservative treatment versus ERCP at this time. Review of Systems Constitutional: Reports chronic pain, Reports fatigue, Reports weakness, Reports weight gain Eyes: denies blurred vision, denies bulging eye, denies decreased vision Ears: deny: decreased hearing, ear discharge, earache Ears, nose, mouth and throat: Reports as per HPI Cardiovascular: Reports dyspnea on exertion, Reports orthopnea, Reports shortness of breath Respiratory: Reports cough, Reports dyspnea Gastrointestinal: Denies abdominal pain, Denies diarrhea, Denies nausea, Denies vomiting Genitourinary: Reports urge incontinence, Reports urinary frequency Musculoskeletal: Reports limitation of motion, Reports muscle weakness Musculoskeletal: bilateral: ankle pain, ankle stiffness, ankle swelling Integumentary: Denies pruritus, Denies rash Neurological: Reports numbness, Reports paralysis, Reports weakness and the patient has been sedentary and she has chronic contractures and deformities both in the upper and lower extremities and she is nonambulatory. She has also idiopathic peripheral neuropathy. Psychiatric: Denies anxiety, Denies depression Endocrine: Denies fatigue, Denies weight change Past Medical History Past Medical History: Heart Failure, COPD, GERD/Reflux, Hyperlipidemia, Hypertension, Musculoskeletal Disorder, Neurologic Disorder, Osteoarthritis (OA) , Pneumonia, Sleep Apnea/CPAP/BIPAP, Thyroid Disorder Additional Past Medical History / Comment(s): Respiratory failure with O2 at 6L/ [place] ATC, pulmonary HTN, bilateral pneumonia, tracheobronchitis, chronic UTIs, urosepsis with prolonged intubation and has been bed bound since (15yrs), past sacral decubitus-skin reddened now per [place] but not open, recent fecal impaction , [place] with Bipap use at times, chronic pain, diffuse abdominal pain for past few months, idiopathic peripheral autonomic neuropathy, arthritis in multiple joints, 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 History of Any Multi-Drug Resistant Organisms: VRE Date of last positivie culture/infection: 01/12/17 MDRO Source:: Urine Past Surgical History: Appendectomy, Joint Replacement, Orthopedic Surgery Additional Past Surgical History / Comment(s): PEG tube and trach placement with removals, left hip arthroplasty in 1995, ankle fracture with ORIF/hardware. Past Anesthesia/Blood Transfusion Reactions: No Reported Reaction Smoking Status: Former smoker - Past Family History Father Family Medical History: Myocardial Infarction (ME) Additional Family Medical History / Comment(s): at age 58 from ME and had a fall with head injury. Mother Family Medical History: CVA/TIA Additional Family Medical History / Comment(s): Mother at age 70 from a CVA. Brother(s) Family Medical History: No Reported History Additional Family Medical History / Comment(s): Patient has one brother with no major medical problems. Sister(s) Family Medical History: No Reported History Additional Family Medical History / Comment(s): Patient has one sister with no major medical problems. Daughter(s) Family Medical History: No Reported History Additional Family Medical History / Comment(s): Patient has 2 daughters no major medical problems. Medications and Allergies Home Medications Medication Instructions Recorded Confirmed Type Aspirin 81 mg PO BID 01/12/17 09/20/17 History Cholecalciferol [Vitamin D3] 2,000 unit PO DAILY 01/12/17 09/20/17 History DULoxetine HCL [Cymbalta] 60 mg PO BID 01/12/17 09/20/17 History Gabapentin [Neurontin] 200 mg PO BID 01/12/17 09/20/17 History Ipratropium-Albuterol Nebulize 3 ml INHALATION RT-Q4H PRN 01/12/17 09/20/17 History [Duoneb 0.5 mg-3 mg/3 ml Soln] Levothyroxine Sodium [Synthroid] 125 mcg PO DAILY@0601/12/17 09/20/17 History Lidocaine 5% Patch [Lidoderm 5% 1 patch TOPICAL Q12H PRN MDD 2 01/12/17 History Patch] patches Loratadine [Claritin] 10 mg PO DAILY 01/12/17 09/20/17 History Metoprolol Succinate [Toprol XL] 25 mg PO DAILY 01/12/17 09/20/17 History Omeprazole [PriLOSEC] 20 mg PO DAILY@0601/12/17 09/20/17 History Sodium Chloride [Saline Mist] 2 spray NASAL DAILY PRN 01/12/17 09/20/17 History Topiramate [Topamax] 50 mg PO BID 01/12/17 09/20/17 History Naldemedine Tosylate [Symproic] 0.2 mg PO DAILY 07/21/17 09/20/17 History QUEtiapine [SEROquel] 12.5 mg PO HS 07/21/17 09/20/17 History Sennosides-Docusate Sodium 2 tab PO BID 07/21/17 09/20/17 History [Senokot-S] ALPRAZolam [Xanax] 0.25 mg PO TID #90 tab 07/27/17 09/20/17 Rx Furosemide [Lasix] 40 mg PO BID@0900,1600 tab 07/27/17 09/20/17 Rx Hydrocodone/Acetaminophen [Marshall 1 tab PO BID #60 tab 07/27/17 09/20/17 Rx 7.5-325] Hydrocodone/Acetaminophen [Marshall 1 tab PO Q6HR PRN #60 tab 07/27/17 09/20/17 Rx 7.5-325] Lidocaine Viscous 2% [Xylocaine 5 ml MUCOUS MEM Q4H PRN ml 07/27/17 09/20/17 Rx Viscous] Budesonide [Pulmicort] 1 mg INHALATION RT-BID 08/03/17 09/20/17 History Melatonin 10 mg PO HS 08/03/17 09/20/17 History acetaZOLAMIDE [Diamox] 250 mg PO DAILY 08/03/17 09/20/17 History Ipratropium-Albuterol Nebulize 3 ml INHALATION RT-QID ampul.neb 08/09/17 Rx [Duoneb 0.5 mg-3 mg/3 ml Soln] Polyethylene Glycol 3350 [Miralax] 17 gm PO HS powd.pack 08/09/17 09/20/17 Rx Ampicillin Trihydrate 500 mg PO Q6H 09/20/17 09/20/17 History Bacillus Coagulans [Digestive 1 cap PO DAILY 09/20/17 09/20/17 History Advantage] Bisacodyl [Dulcolax] 10 mg RECTAL DAILY PRN 09/20/17 09/20/17 History Escitalopram [Lexapro] 20 mg PO DAILY 09/20/17 09/20/17 History Lactose-Reduced Food [Ensure Plus] 120 ml PO QID 09/20/17 09/20/17 History Mag Hydrox/Al Hydrox/Simeth 30 ml PO Q6H 09/20/17 09/20/17 History [Maalox] Triad 1 applic TOPICAL BID 09/20/17 09/20/17 History Vitamins A and D [Vitamin A and D] 1 applic TOPICAL BID 09/20/17 09/20/17 History Allergies Allergy/AdvReac Type Severity Reaction Status Date / Time metronidazole [From Flagyl] Allergy Unknown Verified 09/20/17 07:00 Physical Exam Vitals: Vital Signs Temp Pulse Pulse Resp BP BP Pulse Ox 09/20/17 07:38 97.4 F L 96 18 99/48 96 09/20/17 06:26 99.1 F 107 H 18 100/60 98 09/20/17 05:14 99.1 F 106 H 18 165/77 97 09/20/17 03:52 113 H 18 123/67 95 09/20/17 02:47 20 09/20/17 02:43 118 H 20 157/72 95 09/20/17 02:13 98.4 F 120 H 22 118/56 100 Intake and Output 09/19/17 09/20/17 09/20/17 22:59 06:59 14:59 Output Total 150 Balance -150 Output: Urine 150 Other: Weight 108.862 kg Morbidly obese, calm and comfortable, nonacute distress. The patient is communicating and she has been alert and active and appropriate at this point in time. She is resting comfortably in bed. Head exam was generally normal. There was no scleral icterus or corneal arcus. Mucous membranes were moist. Neck is supple and short and the patient has significant crowding of the posterior oropharynx and the scar of previous tracheostomy tube insertion is seen over the anterior neck. Lung sounds are diminished in lung bases. There are some bibasilar crackles. No wheezes or rhonchi.Cardiac exam revealed the PMI to be normally situated and sized. The rhythm was regular and no extrasystoles were noted during several minutes of auscultation. The first and second heart sounds were normal and physiologic splitting of the second heart sound was noted. There were no murmurs, rubs, clicks, or gallops. Abdomen is morbidly obese soft nontender. No direct tenderness rebound tensile guarding. Organs cannot be accurately palpated. No ascites. Extremities show chronic edema and chronic deformities in the ankles, feet, and the wrist and the fingers bilaterally. The patient has no open wounds or sores. Sensation is diminished. Motor function in the lower extremity 0-5, 3 out of 5 in the upper extremity. Neurologically, the patient is awake and alert and following commands and answering questions appropriately. Results - Laboratory Findings CBC and BMP: 09/20/17 02:41 09/20/17 02:41 PT/INR, D-dimer PT 10.2 sec (9.0-12.0) 09/20/17 02:41 INR 1.0 (<1.2) 09/20/17 02:41 Abnormal lab findings: Abnormal Labs 09/20/17 09/20/17 09/20/17 02:41 02:41 02:41 WBC 13.5 H Hgb 10.5 L MCHC 30.2 L RDW 17.6 H Plt Count 588 H Neutrophils # 11.6 H Sodium 136 L Chloride 90 L Carbon Dioxide 32 H BUN 29 H Glucose 125 H AST 50 H ALT <6 L Alkaline Phosphatase 32 L Troponin I 0.092 H* Total Protein 6.0 L Albumin 3.1 L Urine Appearance Urine Protein Urine Blood Ur Leukocyte Esterase Urine RBC Urine WBC Urine WBC Clumps Triple Phos Crystals Amorphous Sediment Urine Bacteria Hyaline Casts Urine Mucus 09/20/17 09/20/17 03:55 12:08 WBC Hgb MCHC RDW Plt Count Neutrophils # Sodium Chloride Carbon Dioxide BUN Glucose AST ALT Alkaline Phosphatase Troponin I 0.295 H* Total Protein Albumin Urine Appearance Turbid H Urine Protein 2+ H Urine Blood Small H Ur Leukocyte Esterase Large H Urine RBC 28 H Urine WBC >182 H Urine WBC Clumps Occasional H Triple Phos Crystals Many H Amorphous Sediment Moderate H Urine Bacteria Occasional H Hyaline Casts 34 H Urine Mucus Few H - Diagnostic Findings Chest x-ray: image reviewed Assessment and Plan Assessment: Impression: #1 Acute on chronic hypoxic respiratory failure secondary to make appropriate tubing connection at the [facility]. Chest x-ray shows no acute pulmonary process. Recovered. Maintaining good O2 saturations in the 90s on 6 L/m per nasal cannula. #2 Acute shortness of breath secondary to above. #3 Abdominal discomfort. Computed tomography scan shows choledocholelithiasis in the distal common bile duct. There is also prominent stool in the rectum with apparent wall thickening suggestive of fecal impaction or constipation. No evidence of high-grade bowel obstruction. There is also some consideration for cystitis with diffuse bladder wall thickening. #4 Morbid obesity. #5 Obesity/hypoventilation syndrome/obstructive sleep apnea, noncompliant with CPAP in the outpatient setting. 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 Patient is bedridden and nonambulatory for the past 13 years. #7 History of frequent urinary tract infections. Current culture is pending. Currently on Rocephin. #8 Hypertension. #9 Hyperlipidemia. #10 Hypothyroidism. #11 Idiopathic peripheral neuropathy. #12 History of anxiety/depression. #13 Gastroesophageal reflux disease. #14 History of diastolic congestive heart failure. #15 Severe pulmonary hypertension. #16 Chronic normocytic anemia. #17 Previous infections with VRE and Proteus mirabilis with urosepsis requiring prolonged respiratory failure requiring tracheostomy tube and PEG tube insertions and subsequent removals proximate 13 years ago. Plan: The patient was seen and evaluated by Dr. Arita. Chest x-ray and labs were reviewed. The patient is stabilized from the pulmonary standpoint. Maintaining good O2 saturations in the 90s on 6 L high flow nasal cannula. She is currently receiving DuoNeb inhalations and IV Solu-Medrol. She is on antibiotics in the form of Rocephin. GI services were consulted and there are no plans for ERCP at this time. She has been initiated on GoLYTELY regarding the fecal impaction as well. We have also requested the daughter to bring in the patient's home CPAP as the patient has been noncompliant and states the force of pressure in her face is too much. We may be able to make some adjustments. She may also benefit from pulmonary consultation while at [facility] to assure continuity of her pulmonary care. We will continue to follow and make further recommendations based on her clinical status. I, the cosigning physician, performed a history & physical examination of the patient. Lungs sounds are clear. Maintaining good O2 saturations in the 90s on 6 L high flow nasal cannula. I discussed the assessment and plan of care with my nurse practitioner, Bhavani Fernandez. I attest to the above consultation as dictated by her. Time with Patient: Greater than 30 <Celena Arita - Last Filed: 09/20/17 17:53> Physical Exam Vitals: Vital Signs Temp Pulse Pulse Resp BP BP Pulse Ox 09/20/17 15:48 103 H 18 09/20/17 15:39 100 18 09/20/17 11:00 97.1 F L 98 18 102/68 99 09/20/17 07:38 97.4 F L 96 18 99/48 96 09/20/17 06:26 99.1 F 107 H 18 100/60 98 09/20/17 05:14 99.1 F 106 H 18 165/77 97 09/20/17 03:52 113 H 18 123/67 95 09/20/17 02:47 20 09/20/17 02:43 118 H 20 157/72 95 09/20/17 02:13 98.4 F 120 H 22 118/56 100 Intake and Output 09/20/17 09/20/17 09/20/17 06:59 14:59 22:59 Output Total 150 Balance -150 Output: Urine 150 Other: Weight 108.862 kg Results - Laboratory Findings CBC and BMP: 09/20/17 02:41 09/20/17 02:41 PT/INR, D-dimer PT 10.2 sec (9.0-12.0) 09/20/17 02:41 INR 1.0 (<1.2) 09/20/17 02:41 Abnormal lab findings: Abnormal Labs 09/20/17 09/20/17 09/20/17 02:41 02:41 02:41 WBC 13.5 H Hgb 10.5 L MCHC 30.2 L RDW 17.6 H Plt Count 588 H Neutrophils # 11.6 H Sodium 136 L Chloride 90 L Carbon Dioxide 32 H BUN 29 H Glucose 125 H AST 50 H ALT <6 L Alkaline Phosphatase 32 L Troponin I 0.092 H* Total Protein 6.0 L Albumin 3.1 L Urine Appearance Urine Protein Urine Blood Ur Leukocyte Esterase Urine RBC Urine WBC Urine WBC Clumps Triple Phos Crystals Amorphous Sediment Urine Bacteria Hyaline Casts Urine Mucus 09/20/17 09/20/17 09/20/17 03:55 12:08 15:05 WBC Hgb MCHC RDW Plt Count Neutrophils # Sodium Chloride Carbon Dioxide BUN Glucose AST ALT Alkaline Phosphatase Troponin I 0.295 H* 0.241 H* Total Protein Albumin Urine Appearance Turbid H Urine Protein 2+ H Urine Blood Small H Ur Leukocyte Esterase Large H Urine RBC 28 H Urine WBC >182 H Urine WBC Clumps Occasional H Triple Phos Crystals Many H Amorphous Sediment Moderate H Urine Bacteria Occasional H Hyaline Casts 34 H Urine Mucus Few H Assessment and Plan Assessment: This is a joint evaluations was done along with the nurse practitioner. The patient has a stable pulmonary status. Continue reduction supplementation. Switch the antibiotic to IV Rocephin specially with a recent Proteus mirabilis urine checked infection. We'll continue to follow.
[2017-09-20] MEDS ORDERED: SALINE 1 500ML.BAG with HEPARIN SODIUM,PORCINE/NS/PF 1,000 UNIT IV ONE (15:04)
[2017-09-20] MEDS ORDERED: HEPARIN SODIUM,PORCINE 5,000 UNIT/ML 1 ML VIAL IV ONE ×2 (15:04→15:12)
[2017-09-20] MEDS ORDERED: HEPARIN SODIUM,PORCINE 5,000 UNIT/ML 1 ML VIAL IV PRN (15:12)
[2017-09-20] MEDS ORDERED: HEPARIN SODIUM,PORCINE/D5W PMX 25,000 UNIT in DEXTROSE/WATER 1 500ML.BAG IV SCH (15:15)
[2017-09-20] MEDS: IPRATROPIUM-ALBUTEROL 3 ML NEB INHALATION SCH ×2 (15:39→20:11)
--- NOTE | 2017-09-20 15:49 | P.HPIM ---
History of Present Illness H&P Date: 09/20/17 Chief Complaint: Shortness of breath and difficulty breathing abdominal pain and constipatio 77-year-old female patient of my patient currently residing at [facility] with past medical history COPD on 4 L Oxygen , hypertension, obstructive sleep apnea refusing BiPAP/CPAP nighttime, chronic pain, gastric esophageal reflux disease, hypothyroidism, ALLERGIC rhinitis, osteoarthritis, idiopathic peripheral autonomic neuropathy, chronic urinary tract infections, vitamin D deficiency, morbid obesity, bed bound for the past 13 years, h/o prolonged intubation leading to tracheostomy which was finally removed, has been bedbound ever seen. She was recently admitted from her facility secondary to pulmonary hypertension COPD exacerbation, required 10 L off O2 during the last admission, along with diuretics, and tapering IV steroids. She was discharged to [facility] on 4 L nasal cannula, and is stable. Patient was transferred to the emergency room secondary to increasing shortness of breath, no significant cough patient mentions that it's difficult to breathe, and has had abdominal pain off and on with chronic constipation for several years now. She also has early satiety, no appetite, weight loss of approximately 40 pounds in 6 months, during the last admission patient was seen by general surgery who recommended colonoscopy for the problem. Multiple recommendations were made for colonoscopy and the patient has refused. She has a recent urinalysis that was growing Proteus mirabilis significant for a urinary tract tract infection and was started on ampicillin 500 mg 4 times a day at [facility] started 2 days ago. Patient denies any fever but has low- grade temp of 99.1 and double basic count of 13 no melena no hematuria She also has dysphagia, we got an outpatient appointment for an EGD In the emergency room with her abdominal pain and difficulty breathing, she was noted to have on CT imaging correlation for chledocholithiasis in the distal common bile duct, prominent stool in the rectum with fecal impaction, diffuse bladder wall thickening constipation for cystitis. Lipase normal on 41 creatinine of 0.9 AST off 50 alkaline phosphatase of [address] Kellogg has been consulted and Dr. Arita and has been consulted. Troponins were also noted to be slightly elevated on admission her first set troponin was 0.092 and subsequent troponin was 0.295 patient was started on heparin drip, and consult was made with cardiology Review of Systems Constitutional: Reports as per HPI, Reports anorexia, Reports fatigue Ears, nose, mouth and throat: Reports as per HPI Cardiovascular: Reports as per HPI Respiratory: Reports as per HPI, Denies congestion, Denies cough, Denies cough with sputum, Denies dyspnea, Denies excessive sputum, Denies hemoptysis, Denies home oxygen, Denies pain, Denies pain on inspiration, Denies pleurisy, Denies respiratory infections, Denies sleep apnea, Denies snoring, Denies wheezing Gastrointestinal: Reports as per HPI, Reports abdominal pain, Reports early satiety, Reports indigestion, Reports loss of appetite, Reports nausea Genitourinary: Reports as per HPI, Denies abnormal vaginal bleeding, Denies decreased libido, Denies difficulty conceiving, Denies difficulty voiding, Denies dysmenorrhea, Denies dyspareunia, Denies dysuria, Denies flank pain, Denies genital sores, Denies hematuria, Denies hot flashes, Denies incomplete emptying, Denies kidney stones, Denies menorrhagia, Denies mixed incontinence, Denies nocturia, Denies pelvic pain, Denies post void dribbling, Denies , Denies prolapse symptoms, Denies stress incontinence, Denies urge incontinence , Denies urgency, Denies urinary frequency, Denies vaginal discharge, Denies vaginal dryness, Denies vaginal itching, Denies vaginal odor Menstruation: Reports as per HPI, Denies amenorrhea, Denies amenorrhea on BC, Denies currently menstrual, Denies cycle < 21 days, Denies cycle > 35 days, Denies cycle variable, Denies menses 1-7 days, Denies menses 8 or > days, Denies menses variable, Denies period heavy, Denies period light, Denies period normal, Denies period spotting, Denies post hysterectomy, Denies postmenopausal , Denies premenarcheal Musculoskeletal: Reports as per HPI, Denies arm numbness/tingling, Denies atrophy, Denies fractures, Denies frequent falls, Denies gait dysfunction, Denies hot joints, Denies leg numbness/tingling, Denies limitation of motion, Denies loss of height, Denies low back pain, Denies morning stiffness, Denies muscle cramps, Denies muscle weakness, Denies myalgias, Denies neck pain, Denies neck stiffness, Denies prior amputations, Denies redness of joints, Denies shooting arm pain, Denies shooting leg pain Integumentary: Reports as per HPI, Denies acne, Denies boils, Denies brittle nails, Denies change in hair/nails, Denies color changes, Denies darkening of skin, Denies depigmentation, Denies dryness, Denies foot/leg ulcers, Denies growths, Denies hirsutism, Denies lesions, Denies onychomycosis, Denies pruritus , Denies rash, Denies sores, Denies striae, Denies unusual bruising, Denies wounds Neurological: Reports as per HPI, Denies aphasia, Denies ataxia, Denies balance difficulties, Denies burning pain, Denies change in mentation, Denies change in smell/taste, Denies change in speech, Denies confusion, Denies convulsions, Denies double vision, Denies gait dysfunction, Denies head injury, Denies headaches, Denies hearing difficulties, Denies lack of coordination, Denies loss of vision, Denies memory loss, Denies migraines, Denies motor disturbance, Denies numbness, Denies paralysis, Denies paresthesias, Denies seizures, Denies sensory deficit, Denies spasticity, Denies syncope, Denies tic, Denies tingling , Denies transient paralysis, Denies tremors, Denies vertigo, Denies weakness, Denies visual changes Psychiatric: Reports as per HPI, Denies anhedonia, Denies anxiety, Denies anxiety attacks, Denies change in appetite, Denies change in libido, Denies change in sleep habits, Denies confusion, Denies depression, Denies difficulty concentrating, Denies disorientation, Denies hallucinations, Denies hopelessness , Denies hypersomnia, Denies insomnia, Denies irritability, Denies memory loss, Denies mood swings, Denies paranoia, Denies sadness/tearfulness, Denies sleep disturbances, Denies suicidal ideation Endocrine: Reports as per HPI, Denies cold intolerance, Denies deepening of the voice, Denies excessive sweating, Denies excessive thirst, Denies fatigue, Denies flushing, Denies heat intolerance, Denies high blood sugars, Denies increase in ring/shoe/hat size, Denies low blood sugars, Denies nocturia, Denies palpitations, Denies polydipsia, Denies polyphagia, Denies polyuria, Denies proptosis, Denies recent glucocorticoid use, Denies thyroid mass, Denies weight change Hematologic/Lymphatic: Reports as per HPI, Denies easy bleeding, Denies easy bruising, Denies lymphadenopathy, Denies lymphedema, Denies thrombophilia Allergic/Immunologic: Reports as per HPI, Denies allergic rhinitis, Denies anaphylaxis, Denies angioedema, Denies gluten intolerance, Denies persistent infections, Denies seasonal allergies, Denies urticaria, Denies wheezing Past Medical History Past Medical History: Heart Failure, COPD, GERD/Reflux, Hyperlipidemia, Hypertension, Musculoskeletal Disorder, Neurologic Disorder, Osteoarthritis (OA) , Pneumonia, Sleep Apnea/CPAP/BIPAP, Thyroid Disorder Additional Past Medical History / Comment(s): Respiratory failure with O2 at 6L/ NC ATC, pulmonary HTN, bilateral pneumonia, tracheobronchitis, chronic UTIs, urosepsis with prolonged intubation and has been bed bound since (15yrs), past sacral decubitus-skin reddened now per [place] but not open, recent fecal impaction , [place] with Bipap use at times, chronic pain, diffuse abdominal pain for past few months, idiopathic peripheral autonomic neuropathy, arthritis in multiple joints, 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 History of Any Multi-Drug Resistant Organisms: VRE Date of last positivie culture/infection: 01/12/17 MDRO Source:: Urine Past Surgical History: Appendectomy, Joint Replacement, Orthopedic Surgery Additional Past Surgical History / Comment(s): PEG tube and trach placement with removals, left hip arthroplasty in 1995, ankle fracture with ORIF/hardware. Past Anesthesia/Blood Transfusion Reactions: No Reported Reaction Smoking Status: Former smoker - Past Family History Father Family Medical History: Myocardial Infarction (SD) Additional Family Medical History / Comment(s): at age 58 from SD and had a fall with head injury. Mother Family Medical History: CVA/TIA Additional Family Medical History / Comment(s): Mother at age 70 from a CVA. Brother(s) Family Medical History: No Reported History Additional Family Medical History / Comment(s): Patient has one brother with no major medical problems. Sister(s) Family Medical History: No Reported History Additional Family Medical History / Comment(s): Patient has one sister with no major medical problems. Daughter(s) Family Medical History: No Reported History Additional Family Medical History / Comment(s): Patient has 2 daughters no major medical problems. Medications and Allergies Home Medications Medication Instructions Recorded Confirmed Type Aspirin 81 mg PO BID 01/12/17 09/20/17 History Cholecalciferol [Vitamin D3] 2,000 unit PO DAILY 01/12/17 09/20/17 History DULoxetine HCL [Cymbalta] 60 mg PO BID 01/12/17 09/20/17 History Gabapentin [Neurontin] 200 mg PO BID 01/12/17 09/20/17 History Ipratropium-Albuterol Nebulize 3 ml INHALATION RT-Q4H PRN 01/12/17 09/20/17 History [Duoneb 0.5 mg-3 mg/3 ml Soln] Levothyroxine Sodium [Synthroid] 125 mcg PO DAILY@59901/12/17 09/20/17 History Lidocaine 5% Patch [Lidoderm 5% 1 patch TOPICAL Q12H PRN MDD 2 01/12/17 History Patch] patches Loratadine [Claritin] 10 mg PO DAILY 01/12/17 09/20/17 History Metoprolol Succinate [Toprol XL] 25 mg PO DAILY 01/12/17 09/20/17 History Omeprazole [PriLOSEC] 20 mg PO DAILY@0600 01/12/17 09/20/17 History Sodium Chloride [Saline Mist] 2 spray NASAL DAILY PRN 01/12/17 09/20/17 History Topiramate [Topamax] 50 mg PO BID 01/12/17 09/20/17 History Naldemedine Tosylate [Symproic] 0.2 mg PO DAILY 07/21/17 09/20/17 History QUEtiapine [SEROquel] 12.5 mg PO HS 07/21/17 09/20/17 History Sennosides-Docusate Sodium 2 tab PO BID 07/21/17 09/20/17 History [Senokot-S] ALPRAZolam [Xanax] 0.25 mg PO TID #90 tab 07/27/17 09/20/17 Rx Furosemide [Lasix] 40 mg PO BID@0900,1600 tab 07/27/17 09/20/17 Rx Hydrocodone/Acetaminophen [Kent 1 tab PO BID #60 tab 07/27/17 09/20/17 Rx 7.5-325] Hydrocodone/Acetaminophen [Kent 1 tab PO Q6HR PRN #60 tab 07/27/17 09/20/17 Rx 7.5-325] Lidocaine Viscous 2% [Xylocaine 5 ml MUCOUS MEM Q4H PRN ml 07/27/17 09/20/17 Rx Viscous] Budesonide [Pulmicort] 1 mg INHALATION RT-BID 08/03/17 09/20/17 History Melatonin 10 mg PO HS 08/03/17 09/20/17 History acetaZOLAMIDE [Diamox] 250 mg PO DAILY 08/03/17 09/20/17 History Ipratropium-Albuterol Nebulize 3 ml INHALATION RT-QID ampul.neb 08/09/17 Rx [Duoneb 0.5 mg-3 mg/3 ml Soln] Polyethylene Glycol 3350 [Miralax] 17 gm PO HS powd.pack 08/09/17 09/20/17 Rx Ampicillin Trihydrate 500 mg PO Q6H 09/20/17 09/20/17 History Bacillus Coagulans [Digestive 1 cap PO DAILY 09/20/17 09/20/17 History Advantage] Bisacodyl [Dulcolax] 10 mg RECTAL DAILY PRN 09/20/17 09/20/17 History Escitalopram [Lexapro] 20 mg PO DAILY 09/20/17 09/20/17 History Lactose-Reduced Food [Ensure Plus] 120 ml PO QID 09/20/17 09/20/17 History Mag Hydrox/Al Hydrox/Simeth 30 ml PO Q6H 09/20/17 09/20/17 History [Maalox] Triad 1 applic TOPICAL BID 09/20/17 09/20/17 History Vitamins A and D [Vitamin A and D] 1 applic TOPICAL BID 09/20/17 09/20/17 History Allergies Allergy/AdvReac Type Severity Reaction Status Date / Time metronidazole [From Flagyl] Allergy Unknown Verified 09/20/17 07:00 Physical Exam Vitals: Vital Signs Temp Pulse Pulse Resp BP BP Pulse Ox 09/20/17 11:00 97.1 F L 98 18 102/68 99 09/20/17 07:38 97.4 F L 96 18 99/48 96 09/20/17 06:26 99.1 F 107 H 18 100/60 98 09/20/17 05:14 99.1 F 106 H 18 165/77 97 09/20/17 03:52 113 H 18 123/67 95 09/20/17 02:47 20 09/20/17 02:43 118 H 20 157/72 95 09/20/17 02:13 98.4 F 120 H 22 118/56 100 Intake and Output 09/19/17 09/20/17 09/20/17 22:59 06:59 14:59 Output Total 150 Balance -150 Output: Urine 150 Other: Weight 108.862 kg - Constitutional General appearance: cooperative, no acute distress - EENT Eyes: anicteric sclerae, EOMI, PERRLA, dentition normal, normal appearance ENT: NA/AT, normal oropharynx - Neck Neck: normal ROM - Respiratory Respiratory: bilateral: CTA, negative: diminished, dullness, rales, rhonchi, wheezing - Cardiovascular Heart sounds: normal: S1, S2 Abnormal Heart Sounds: systolic murmur, no diastolic murmur, no rub, no S3 Gallop, no S4 Gallop, no click, no other - Gastrointestinal General gastrointestinal: normal bowel sounds, soft - Integumentary Integumentary: normal, normal turgor - Neurologic Neurologic: CNII-XII intact - Musculoskeletal Musculoskeletal: generalized weakness (Patient can move all 4 extremities however limited secondary to contract contractures in the hands) - Psychiatric Psychiatric: A&O x's 3, appropriate affect, intact judgment & insight Results CBC & Chem 7: 09/20/17 02:41 09/20/17 02:41 Labs: Abnormal Lab Results - Last 24 Hours (Table) 09/20/17 09/20/17 09/20/17 Range/Units 02:41 02:41 02:41 WBC 13.5 H (3.8-10.6) k/uL Hgb 10.5 L (11.4-16.0) gm/dL MCHC 30.2 L (31.0-37.0) g/dL RDW 17.6 H (11.5-15.5) % Plt Count 588 H (150-450) k/uL Neutrophils # 11.6 H (1.3-7.7) k/uL Sodium 136 L (137-145) mmol/L Chloride 90 L (98-107) mmol/L Carbon Dioxide 32 H (22-30) mmol/L BUN 29 H (7-17) mg/dL Glucose 125 H (74-99) mg/dL AST 50 H (14-36) U/L ALT <6 L (9-52) U/L Alkaline Phosphatase 32 L (38-126) U/L Troponin I 0.092 H* (0.000-0.034) ng/mL Total Protein 6.0 L (6.3-8.2) g/dL Albumin 3.1 L (3.5-5.0) g/dL Urine Appearance (Clear) Urine Protein (Negative) Urine Blood (Negative) Ur Leukocyte Esterase (Negative) Urine RBC (0-5) /hpf Urine WBC (0-5) /hpf Urine WBC Clumps (None) /hpf Triple Phos Crystals (None) /hpf Amorphous Sediment (None) /hpf Urine Bacteria (None) /hpf Hyaline Casts (0-2) /lpf Urine Mucus (None) /hpf 09/20/17 09/20/17 Range/Units 03:55 12:08 WBC (3.8-10.6) k/uL Hgb (11.4-16.0) gm/dL MCHC (31.0-37.0) g/dL RDW (11.5-15.5) % Plt Count (150-450) k/uL Neutrophils # (1.3-7.7) k/uL Sodium (137-145) mmol/L Chloride (98-107) mmol/L Carbon Dioxide (22-30) mmol/L BUN (7-17) mg/dL Glucose (74-99) mg/dL AST (14-36) U/L ALT (9-52) U/L Alkaline Phosphatase (38-126) U/L Troponin I 0.295 H* (0.000-0.034) ng/mL Total Protein (6.3-8.2) g/dL Albumin (3.5-5.0) g/dL Urine Appearance Turbid H (Clear) Urine Protein 2+ H (Negative) Urine Blood Small H (Negative) Ur Leukocyte Esterase Large H (Negative) Urine RBC 28 H (0-5) /hpf Urine WBC >182 H (0-5) /hpf Urine WBC Clumps Occasional H (None) /hpf Triple Phos Crystals Many H (None) /hpf Amorphous Sediment Moderate H (None) /hpf Urine Bacteria Occasional H (None) /hpf Hyaline Casts 34 H (0-2) /lpf Urine Mucus Few H (None) /hpf Laboratory Results WBC 13.5 k/uL (3.8-10.6) H 09/20/17 02:41 RBC 3.98 m/uL (3.80-5.40) 09/20/17 02:41 Hgb 10.5 gm/dL (11.4-16.0) L 09/20/17 02:41 Hct 34.8 % (34.0-46.0) 09/20/17 02:41 MCV 87.5 fL (80.0-100.0) D 09/20/17 02:41 MCH 26.4 pg (25.0-35.0) 09/20/17 02:41 MCHC 30.2 g/dL (31.0-37.0) L 09/20/17 02:41 RDW 17.6 % (11.5-15.5) H 09/20/17 02:41 Plt Count 588 k/uL (150-450) H 09/20/17 02:41 Neutrophils % 86 % 09/20/17 02:41 Lymphocytes % 8 % 09/20/17 02:41 Monocytes % 5 % 09/20/17 02:41 Eosinophils % 0 % 09/20/17 02:41 Basophils % 0 % 09/20/17 02:41 Neutrophils # 11.6 k/uL (1.3-7.7) H 09/20/17 02:41 Lymphocytes # 1.0 k/uL (1.0-4.8) 09/20/17 02:41 Monocytes # 0.6 k/uL (0-1.0) 09/20/17 02:41 Eosinophils # 0.0 k/uL (0-0.7) 09/20/17 02:41 Basophils # 0.1 k/uL (0-0.2) 09/20/17 02:41 Hypochromasia Marked 09/20/17 02:41 Poikilocytosis Moderate 09/20/17 02:41 Anisocytosis Slight 09/20/17 02:41 PT 10.2 sec (9.0-12.0) 09/20/17 02:41 INR 1.0 (<1.2) 09/20/17 02:41 APTT 25.5 sec (22.0-30.0) 09/20/17 02:41 Sodium 136 mmol/L (137-145) L 09/20/17 02:41 Potassium 4.3 mmol/L (3.5-5.1) 09/20/17 02:41 Chloride 90 mmol/L (98-107) L 09/20/17 02:41 Carbon Dioxide 32 mmol/L (22-30) H 09/20/17 02:41 Anion Gap 14 mmol/L 09/20/17 02:41 BUN 29 mg/dL (7-17) H 09/20/17 02:41 Creatinine 0.90 mg/dL (0.52-1.04) 09/20/17 02:41 Est GFR (CKD-EPI)AfAm 72 (>60 ml/min/1.73 sqM) 09/20/17 02:41 Est GFR (CKD-EPI)NonAf 62 (>60 ml/min/1.73 sqM) 09/20/17 02:41 Glucose 125 mg/dL (74-99) H 09/20/17 02:41 Calcium 9.4 mg/dL (8.4-10.2) 09/20/17 02:41 Total Bilirubin 0.6 mg/dL (0.2-1.3) 09/20/17 02:41 AST 50 U/L (14-36) H 09/20/17 02:41 ALT <6 U/L (9-52) L 09/20/17 02:41 Alkaline Phosphatase 32 U/L (38-126) L 09/20/17 02:41 Troponin I 0.295 ng/mL (0.000-0.034) H* 09/20/17 12:08 NT-Pro-B Natriuret Pep 3390 pg/mL 09/20/17 02:41 Total Protein 6.0 g/dL (6.3-8.2) L 09/20/17 02:41 Albumin 3.1 g/dL (3.5-5.0) L 09/20/17 02:41 Amylase 38 U/L (30-110) 09/20/17 02:41 Lipase 41 U/L (23-300) 09/20/17 02:41 Urine Color Yellow 09/20/17 03:55 Urine Appearance Turbid (Clear) H 09/20/17 03:55 Urine pH 8.0 (5.0-8.0) 09/20/17 03:55 Ur Specific [place] 1.010 (1.001-1.035) 09/20/17 03:55 Urine Protein 2+ (Negative) H 09/20/17 03:55 Urine Glucose (UA) Negative (Negative) 09/20/17 03:55 Urine Ketones Negative (Negative) 09/20/17 03:55 Urine Blood Small (Negative) H 09/20/17 03:55 Urine Nitrite Negative (Negative) 09/20/17 03:55 Urine Bilirubin Negative (Negative) 09/20/17 03:55 Urine Urobilinogen <2.0 mg/dL (<2.0) 09/20/17 03:55 Ur Leukocyte Esterase Large (Negative) H 09/20/17 03:55 Urine RBC 28 /hpf (0-5) H 09/20/17 03:55 Urine WBC >182 /hpf (0-5) H 09/20/17 03:55 Urine WBC Clumps Occasional /hpf (None) H 09/20/17 03:55 Ur Squamous Epith Cells 1 /hpf (0-4) 09/20/17 03:55 Triple Phos Crystals Many /hpf (None) H 09/20/17 03:55 Amorphous Sediment Moderate /hpf (None) H 09/20/17 03:55 Urine Bacteria Occasional /hpf (None) H 09/20/17 03:55 Hyaline Casts 34 /lpf (0-2) H 09/20/17 03:55 Urine Mucus Few /hpf (None) H 09/20/17 03:55 Thrombosis Risk Factor Assmnt - DVT/VTE Prophylaxis DVT/VTE Prophylaxis: Pharmacologic Prophylaxis ordered, Mechanical Prophylaxis ordered, Low risk, early ambulation encouraged - Choose All That Apply Any of the Below Risk Factors Present?: Yes Each Factor Represents 1 point: Abnormal pulmonary function (COPD), Heart failure (<1month), Medical pt on bed rest, Obesity (BMI >25) Other Risk Factors: Yes Each Risk Factor Represents 2 Points: Patient confined to bed Other congenital or acquired thrombophilia - If yes, enter type in comment: No Thrombosis Risk Factor Assessment Total Risk Factor Score: 6 Thrombosis Risk Factor Assessment Level: High Risk Assessment and Plan Plan: 1. Acute on chronic hypoxemic respiratory failure with hypercarbic respiratory failure secondary to pulmonary hypertension, acute on chronic diastolic CHF, restrictiion in diaphragmatic excursion secondary to abdominal distention from chronic constipation, patient was given Solu-Medrol which would be discontinued , continue nebulized albuterol Atrovent, O2 at 6 L is a cannula 2acute abdominal pain recurrent acute on chronic, with choledocholithiasis in the distal common bile duct, as well as fecal impaction and urinary tract infection and acute. Patient has lived Versed stable 3.5 x 4.1 cm No evidence of high-grade bowel obstruction Dr. Kellogg to see the patient for common bile duct stone, without any common bile duct dilatation. EGD was discussed and is agreeable, ERCP has been contemplated however in view off her pulmonary status, pulmonary has to clear her prior to ERCP however in view of the elevated rising troponins, any surgical procedures currently on hold 3. Recurrent dysphagia and early satiety without any aspirative events, history of GERD, and recurrent epigastric abdominal pain, EGD was discussed with the patient and is agreeable to this 4. Acute urinary tract infection with Proteus mirabilis growing on the most recent urine culture, Rocephin 1 g every 24 hours then can be transitioned to oral medication 5. Elevated troponin suspect an NSTEMI with a rise in second troponin of 0.29, patient will be heparinized, and will be seen consultation by cardiology Previous echocardiogram performed July 2017 EF 55-60% right ventricular enlargement moderate,, continue on beta blockers, aspirin, 5 obesity with hypoventilation syndrome and obstructive sleep apnea noncompliant with CPAP on the [facility], chronic hypercarbia, on O2 4 L maintenance in [facility], currently receiving 6 L nasal cannula. 6 Severe secondary pulmonary hypertension from obstructive sleep apnea, noncompliant to CPAP machine, 7 Fecal impaction with chronic constipation without any bowel obstruction, patient refused any colonoscopies in the past, refused any enemas, we'll going to use GoLYTELY for today, and this can be followed with medications titrated the next few days. Maintenance symproic for OIC along with other laxatives. She might benefit from Amitiza or linzess after her discharge 8 Acute on chronic diastolic heart failure. Continue Toprol-XL 25 mg orally once every day, continue patient on Lasix 40 bid, IV Lasix given in the ER, BNP is minimally elevated on 3300 no evidence of pleural effusion or pericardial effusion, continue to monitor input and output and daily weight Ventricle systolic pressure of 90 moderate to severe TR 9 Medical debility, bedbound . Physical therapy evaluation, discharge to [facility] once patient stabilizes 10 GERD. Continue Protonix 40 mg orally once every day. 11 Hypertension and hypertensive cardiovascular disease. Continue Toprol-XL 25 mg orally once every day, amlodipine 5 mg orally once every day. 12 Hyperlipidemia. Low-cholesterol diet. 13 Hypothyroidism. Continue Synthroid 125 g orally once every day. 14 Peripheral neuropathy. Continue gabapentin 200 mg orally twice every day. 15 Depressive disorder. Continue patient on Cymbalta 60 mg orally once every day and Lexapro 10 mg orally once every day. 16 . Osteoarthritis with joint deformities including the right hand as well as bilateral lower extremity's. History of prolonged hospitialisation including intubation with developmont of significant paraparesis of both lower extremities with significant deformity of the right wrist. 17 Anxiety disorder treatment learning support assistant depression. Continue patient on Lexapro 20 mg orally once every day. On weaning doses of Seroquel 12.5 mg every day 18. ALLERGIC rhinitis. Continue patient on Claritin 10 mg orally once every day. 19. DVT prophylaxis. Currently on IV heparin 24 hours. 15. GI prophylaxis. Continue Protonix 40 mg orally once every day. 16. Patient is full code. Estimate a length of stay 2 midnights. 17. Admit to inpatient.
[2017-09-20] MEDS: HYDROcodone/APAP 7.5-325MG 1 EACH TAB PO SCH (17:41)
[2017-09-20] MEDS ORDERED: NON-FORMULARY DRUG (Lactose-Reduced Food [Ensure Plus] 120 ML) PO SCH (18:00)
[2017-09-20 18:21] LABS: Glucose,Whole Blood 133 mg/dL (75-99)
[2017-09-20] MEDS: INSULIN ASPART 100 UNIT/ML 1 ML 10 ML VIAL SQ SCH ×2 (18:43→21:28)
[2017-09-20] MEDS: FUROSEMIDE 40 MG TAB PO SCH (18:45)
[2017-09-20] MEDS: QUEtiapine 25 MG TAB PO SCH (19:56)
[2017-09-20] MEDS: ASPIRIN 81 MG PO SCH (19:56)
[2017-09-20] MEDS: GABAPENTIN 100 MG CAP PO SCH (19:57)
[2017-09-20] MEDS: DULoxetine HCL 60 MG CAPSULE.DR PO SCH (19:57)
[2017-09-20] MEDS: SENNOSIDES-DOCUSATE SODIUM 1 EACH TAB PO SCH (19:57)
[2017-09-20] MEDS: TOPIRAMATE 25 MG TAB PO SCH (19:58)
[2017-09-20] MEDS: POLYETHYLENE GLYCOL 3350 17 GM POWD.PACK PO SCH (19:58)
[2017-09-20] MEDS: BUDESONIDE 1 MG/2 ML NEBU INHALATION SCH (20:12)
[2017-09-20] MEDS ORDERED: VITAMINS A AND D TOPICAL SCH (21:00)
[2017-09-20] MEDS ORDERED: MELATONIN 5 MG TABLET PO PRN (21:00)
[2017-09-20] MEDS ORDERED: TRIAD TOPICAL SCH (21:00)
[2017-09-20 21:17] LABS: Glucose,Whole Blood 233 mg/dL (75-99)
[2017-09-21 06:02] LABS: Glucose,Whole Blood 120 mg/dL (75-99)
[2017-09-21] MEDS: INSULIN ASPART 100 UNIT/ML 1 ML 10 ML VIAL SQ SCH ×4 (06:11→21:36)
[2017-09-21 06:36] LABS: Anisocytosis Slight; Basophils # (A) 0.1 k/uL (0-0.2); Basophils % (A) 1 %; Eosinophils # (A) 0.5 k/uL (0-0.7); Eosinophils % (A) 5 %; HCT 37.2 % (34.0-46.0); HGB 10.6 gm/dL (11.4-16.0); Hypochromasia Marked; Lymphocytes # (A) 1.5 k/uL (1.0-4.8); Lymphocytes % (A) 15 %; MCH 25.8 pg (25.0-35.0); MCHC 28.4 g/dL (31.0-37.0); MCV 90.6 fL (80.0-100.0); Mean Platelet Volume 6.8; Monocytes # (A) 0.8 k/uL (0-1.0); Monocytes % (A) 8 %; Neutrophils % (A) 69 %; Platelet Count 449 k/uL (150-450); Poikilocytosis Slight; RBC 4.11 m/uL (3.80-5.40); RDW 17.6 % (11.5-15.5); WBC 10.1 k/uL (3.8-10.6)
[2017-09-21 06:42] LABS: Albumin 2.7 g/dL (3.5-5.0); Calcium 8.8 mg/dL (8.4-10.2); Potassium 3.1 mmol/L (3.5-5.1); Total Bilirubin 0.3 mg/dL (0.2-1.3); Total Protein 5.2 g/dL (6.3-8.2)
[2017-09-21] MEDS: SODIUM CHLORIDE 0.9% 1,000 ML IV SCH (08:15)
[2017-09-21] MEDS: IPRATROPIUM-ALBUTEROL 3 ML NEB INHALATION SCH ×4 (08:40→20:26)
[2017-09-21] MEDS: BUDESONIDE 1 MG/2 ML NEBU INHALATION SCH ×2 (08:40→20:26)
[2017-09-21] MEDS: cefTRIAXone IN SWFI 1,000 MG/10 ML SYRINGE IVP SCH (08:52)
[2017-09-21] MEDS: ESCITALOPRAM 20 MG TAB PO SCH (08:58)
[2017-09-21] MEDS: PANTOPRAZOLE 40 MG TABLET PO SCH (08:58)
[2017-09-21] MEDS: FAMOTIDINE 20 MG TAB PO SCH ×2 (08:59→21:42)
[2017-09-21] MEDS: DULoxetine HCL 60 MG CAPSULE.DR PO SCH ×2 (08:59→21:39)
[2017-09-21] MEDS ORDERED: LEVOFLOXACIN 750 MG TAB PO SCH (09:00)
[2017-09-21] MEDS ORDERED: BACILLUS COAGULANS PO SCH (09:00)
[2017-09-21] MEDS ORDERED: METOPROLOL SUCCINATE (ER) 25 MG TAB.ER.24H PO SCH (09:00)
[2017-09-21] MEDS: ASPIRIN 81 MG PO SCH ×2 (09:00→21:39)
[2017-09-21] MEDS: LEVOTHYROXINE 125 MCG TAB PO SCH (09:01)
[2017-09-21] MEDS: POTASSIUM CHLORIDE ER 20 MEQ TAB.ER PO SCH ×2 (09:07→12:43)
--- NOTE | 2017-09-21 09:51 | P.PN ---
Subjective Progress Note Date: 09/21/17 Principal diagnosis: Choledocholithiasis Denies abdominal pain. LFTs within normal limits this morning. Afebrile. Constipation features on CT laxatives ordered patient presently not drinking. Elevated troponins receiving intravenous heparin. Nothing by mouth for cardiology evaluation. Objective - Vital Signs Vital signs: Vital Signs Temp 97 F L 09/21/17 07:35 Pulse 64 09/21/17 08:54 Resp 24 09/21/17 07:35 BP 120/88 09/21/17 07:35 Pulse Ox 95 09/21/17 07:35 Intake & Output 09/20/17 09/21/17 09/21/17 18:59 06:59 18:59 Intake Total 150 150 Output Total 150 Balance 0 150 Weight 82.5 kg Intake: Oral 150 150 Output: Urine 150 Other: Voiding Method Diaper Incontinent # Voids 2 1 - Exam General appearance: The patient is alert, oriented, in no acute distress. HET: Head is normocephalic and atraumatic. Pupils are equal and reactive. Oropharynx is clear without lesions. Neck: Supple without lymphadenopathy. Trachea midline. Heart: S1 S2. Regular rate and rhythm. Lungs: No crackles or wheezes are heard. Abdomen: Soft, nontender, nondistended with bowel sounds. No peritoneal signs. No palpable organomegaly or masses. Extremities: Crippling deformities. Neurological: No focal deficits. Strength and sensation are grossly intact. - Labs CBC & Chem 7: 09/21/17 05:51 09/21/17 05:51 Labs: Abnormal Lab Results - Last 24 Hours (Table) 09/20/17 09/20/17 09/20/17 Range/Units 12:08 15:05 18:19 Hgb (11.4-16.0) gm/dL MCHC (31.0-37.0) g/dL RDW (11.5-15.5) % APTT (22.0-30.0) sec Potassium (3.5-5.1) mmol/L Chloride (98-107) mmol/L Carbon Dioxide (22-30) mmol/L BUN (7-17) mg/dL POC Glucose (mg/dL) 133 H (75-99) mg/dL Troponin I 0.295 H* 0.241 H* (0.000-0.034) ng/mL Total Protein (6.3-8.2) g/dL Albumin (3.5-5.0) g/dL 09/20/17 09/21/17 09/21/17 Range/Units 21:15 00:46 05:51 Hgb 10.6 L (11.4-16.0) gm/dL MCHC 28.4 L (31.0-37.0) g/dL RDW 17.6 H (11.5-15.5) % APTT 58.0 H (22.0-30.0) sec Potassium (3.5-5.1) mmol/L Chloride (98-107) mmol/L Carbon Dioxide (22-30) mmol/L BUN (7-17) mg/dL POC Glucose (mg/dL) 233 H (75-99) mg/dL Troponin I (0.000-0.034) ng/mL Total Protein (6.3-8.2) g/dL Albumin (3.5-5.0) g/dL 09/21/17 09/21/17 09/21/17 Range/Units 05:51 05:51 06:01 Hgb (11.4-16.0) gm/dL MCHC (31.0-37.0) g/dL RDW (11.5-15.5) % APTT 51.0 H (22.0-30.0) sec Potassium 3.1 L (3.5-5.1) mmol/L Chloride 93 L (98-107) mmol/L Carbon Dioxide 32 H (22-30) mmol/L BUN 22 H (7-17) mg/dL POC Glucose (mg/dL) 120 H (75-99) mg/dL Troponin I (0.000-0.034) ng/mL Total Protein 5.2 L (6.3-8.2) g/dL Albumin 2.7 L (3.5-5.0) g/dL Assessment and Plan (1) Choledocholithiasis Narrative/Plan: 77-year-old female with a history of PALMIRA, COPD O2 dependent, cholecystectomy, physical debility bedridden with crippling deformities presents with acute and chronic mid abdominal epigastric pain mild elevation of troponin with radiographic imaging reporting choledocholithiasis biliary duct dilation with unremarkable pancreatic liver enzymes. Abdominal pain possibly related to choledocholithiasis. Current Visit: Yes Status: Acute Code(s): K80.50 - CALCULUS OF BILE DUCT W/ O CHOLANGITIS OR CHOLECYST W/O OBST SNOMED Code(s): 089441336 Plan: 1. Conservative measures ERCP not planned at this time. We'll continue to follow. Assessment and plan a care discussed with Dr. Kellogg
[2017-09-21] MEDS: ALPRAZolam 0.25 MG TAB PO PRN ×3 (10:26→21:45)
[2017-09-21] MEDS: acetaZOLAMIDE 250 MG TAB PO SCH (10:29)
[2017-09-21] MEDS: GABAPENTIN 100 MG CAP PO SCH ×2 (10:29→21:39)
[2017-09-21] MEDS: FUROSEMIDE 40 MG TAB PO SCH ×2 (10:29→16:05)
[2017-09-21] MEDS: CHOLECALCIFEROL 1,000 UNIT TAB PO SCH (10:29)
[2017-09-21] MEDS: LORATADINE 10 MG TAB PO SCH (10:30)
[2017-09-21] MEDS: SENNOSIDES-DOCUSATE SODIUM 1 EACH TAB PO SCH ×2 (10:30→21:39)
[2017-09-21] MEDS: TOPIRAMATE 25 MG TAB PO SCH ×2 (10:30→21:42)
[2017-09-21] MEDS: NALDEMEDINE TOSYLATE PO SCH (10:45)
--- NOTE | 2017-09-21 11:12 | P.CRDCN ---
History of Present Illness Consult date: 09/21/17 Requesting physician: Gracia Elizabeth Consult reason: shortness of breath Chief complaint: Shortness of breath History of present illness: This is a 77-year-old female who resides at [facility], according to the daughter she's been bedbound for the past 13 years, she does have history of hypertension, diastolic congestive heart failure, severe COPD, hyperlipidemia, sleep apnea, hypothyroidism, GERD, chronic UTIs, pulmonary hypertension. Apparently the patient was brought to the hospital because of symptoms of shortness of breath. Patient also had been complaining of intermittent abdominal discomfort off-and-on and she's known to have chronic constipation for several years now. Chest x-ray did not reveal any significant change. Abdominal and pelvic CT revealed dilated common bile duct with evidence of cholelithiasis, prominent stool with associated wall thickening, suggesting fecal impaction. Laboratory data was reviewed, white blood cell count 13.5 on admission, 10.1 this morning. Hemoglobin 10.6, platelet count 449. Sodium 137, potassium 3.1 this morning. BUN 22, creatinine 0.4. BNP level 3390. Troponins 0.09, 0.29, 0.24. Positive UTI. Cardiology consultation was requested because of abnormal troponins. Patient denies having any chest discomfort, at the time of my examination she states that she really wasn't any more short of breath than her usual according to her. Patient was just recently in the hospital, she was seen by Cardiology in July of this year, an echocardiogram with Doppler study was performed at that time which revealed an ejection fraction of 55-60%. Moderate to severe tricuspid regurg and severe pulmonary hypertension. Past Medical History Past Medical History: Heart Failure, COPD, GERD/Reflux, Hyperlipidemia, Hypertension, Musculoskeletal Disorder, Neurologic Disorder, Osteoarthritis (OA) , Pneumonia, Sleep Apnea/CPAP/BIPAP, Thyroid Disorder Additional Past Medical History / Comment(s): Respiratory failure with O2 at 6L/ [place] ATC, pulmonary HTN, bilateral pneumonia, tracheobronchitis, chronic UTIs, urosepsis with prolonged intubation and has been bed bound since (15yrs), past sacral decubitus-skin reddened now per [place] but not open, recent fecal impaction , PALMIRA with Bipap use at times, chronic pain, diffuse abdominal pain for past few months, idiopathic peripheral autonomic neuropathy, arthritis in multiple joints, 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 History of Any Multi-Drug Resistant Organisms: VRE Date of last positivie culture/infection: 01/12/17 MDRO Source:: Urine Past Surgical History: Appendectomy, Joint Replacement, Orthopedic Surgery Additional Past Surgical History / Comment(s): PEG tube and trach placement with removals, left hip arthroplasty in 1995, ankle fracture with ORIF/hardware. Past Anesthesia/Blood Transfusion Reactions: No Reported Reaction Smoking Status: Former smoker - Past Family History Father Family Medical History: Myocardial Infarction ([place]) Additional Family Medical History / Comment(s): at age 58 from [place] and had a fall with head injury. Mother Family Medical History: CVA/TIA Additional Family Medical History / Comment(s): Mother at age 70 from a CVA. Brother(s) Family Medical History: No Reported History Additional Family Medical History / Comment(s): Patient has one brother with no major medical problems. Sister(s) Family Medical History: No Reported History Additional Family Medical History / Comment(s): Patient has one sister with no major medical problems. Daughter(s) Family Medical History: No Reported History Additional Family Medical History / Comment(s): Patient has 2 daughters no major medical problems. Medications and Allergies Home Medications Medication Instructions Recorded Confirmed Type Aspirin 81 mg PO BID 01/12/17 09/20/17 History Cholecalciferol [Vitamin D3] 2,000 unit PO DAILY 01/12/17 09/20/17 History DULoxetine HCL [Cymbalta] 60 mg PO BID 01/12/17 09/20/17 History Gabapentin [Neurontin] 200 mg PO BID 01/12/17 09/20/17 History Ipratropium-Albuterol Nebulize 3 ml INHALATION RT-Q4H PRN 01/12/17 09/20/17 History [Duoneb 0.5 mg-3 mg/3 ml Soln] Levothyroxine Sodium [Synthroid] 125 mcg PO DAILY@0600 01/12/17 09/20/17 History Lidocaine 5% Patch [Lidoderm 5% 1 patch TOPICAL Q12H PRN MDD 2 01/12/17 History Patch] patches Loratadine [Claritin] 10 mg PO DAILY 01/12/17 09/20/17 History Metoprolol Succinate [Toprol XL] 25 mg PO DAILY 01/12/17 09/20/17 History Omeprazole [PriLOSEC] 20 mg PO DAILY@0600 01/12/17 09/20/17 History Sodium Chloride [Saline Mist] 2 spray NASAL DAILY PRN 01/12/17 09/20/17 History Topiramate [Topamax] 50 mg PO BID 01/12/17 09/20/17 History Naldemedine Tosylate [Symproic] 0.2 mg PO DAILY 07/21/17 09/20/17 History QUEtiapine [SEROquel] 12.5 mg PO HS 07/21/17 09/20/17 History Sennosides-Docusate Sodium 2 tab PO BID 07/21/17 09/20/17 History [Senokot-S] ALPRAZolam [Xanax] 0.25 mg PO TID #90 tab 07/27/17 09/20/17 Rx Furosemide [Lasix] 40 mg PO BID@0900,1600 tab 07/27/17 09/20/17 Rx Hydrocodone/Acetaminophen [[place] 1 tab PO BID #60 tab 07/27/17 09/20/17 Rx 7.5-325] Hydrocodone/Acetaminophen [[place] 1 tab PO Q6HR PRN #60 tab 07/27/17 09/20/17 Rx 7.5-325] Lidocaine Viscous 2% [Xylocaine 5 ml MUCOUS MEM Q4H PRN ml 07/27/17 09/20/17 Rx Viscous] Budesonide [Pulmicort] 1 mg INHALATION RT-BID 08/03/17 09/20/17 History Melatonin 10 mg PO HS 08/03/17 09/20/17 History acetaZOLAMIDE [Diamox] 250 mg PO DAILY 08/03/17 09/20/17 History Ipratropium-Albuterol Nebulize 3 ml INHALATION RT-QID ampul.neb 08/09/17 Rx [Duoneb 0.5 mg-3 mg/3 ml Soln] Polyethylene Glycol 3350 [Miralax] 17 gm PO HS powd.pack 08/09/17 09/20/17 Rx Ampicillin Trihydrate 500 mg PO Q6H 09/20/17 09/20/17 History Bacillus Coagulans [Digestive 1 cap PO DAILY 09/20/17 09/20/17 History Advantage] Bisacodyl [Dulcolax] 10 mg RECTAL DAILY PRN 09/20/17 09/20/17 History Escitalopram [Lexapro] 20 mg PO DAILY 09/20/17 09/20/17 History Lactose-Reduced Food [Ensure Plus] 120 ml PO QID 09/20/17 09/20/17 History Mag Hydrox/Al Hydrox/Simeth 30 ml PO Q6H 09/20/17 09/20/17 History [Maalox] Triad 1 applic TOPICAL BID 09/20/17 09/20/17 History Vitamins A and D [Vitamin A and D] 1 applic TOPICAL BID 09/20/17 09/20/17 History Allergies Allergy/AdvReac Type Severity Reaction Status Date / Time metronidazole [From Flagyl] Allergy Unknown Verified 09/20/17 07:00 Physical Exam Vitals: Vital Signs Temp Pulse Pulse Resp BP BP Pulse Ox 09/21/17 08:54 64 09/21/17 08:40 60 09/21/17 07:35 97 F L 67 24 120/88 95 09/21/17 04:00 113 H 18 126/62 97 09/20/17 23:25 111 H 18 09/20/17 23:23 111 H 18 130/83 96 09/20/17 20:27 100 18 09/20/17 20:12 101 H 18 09/20/17 20:00 98.3 F 96 18 126/62 97 09/20/17 18:29 97 F L 117 H 20 101/72 100 09/20/17 17:53 103 H 19 103/50 98 09/20/17 15:48 103 H 18 09/20/17 15:39 100 18 09/20/17 11:00 97.1 F L 98 18 102/68 99 Intake and Output 09/20/17 09/21/17 09/21/17 22:59 06:59 14:59 Intake Total 150 150 Balance 150 150 Intake: Oral 150 150 Other: Voiding Method Diaper Diaper Incontinent Incontinent # Voids 2 1 Weight 82.5 kg PHYSICAL EXAMINATION: HEENT: Head is atraumatic, normocephalic. Pupils equal, round. Neck is supple. There is elevated jugular venous pressure. HEART EXAMINATION: Heart S1 and S2 with systolic ejection murmur is heard CHEST EXAMINATION:'s reveal fine expiratory wheezing throughout. ABDOMEN: Soft, nontender. Bowel sounds are heard. No organomegaly noted. EXTREMITIES: One plus peripheral pulses, left foot drop, chronic deformity of the upper and lower extremities NEUROLOGIC patient is awake, alert and oriented -3. . Results 09/21/17 05:51 09/21/17 05:51 Cardiac Enzymes 09/20/17 09/20/17 09/21/17 Range/Units 12:08 15:05 05:51 AST 20 (14-36) U/L Troponin I 0.295 H* 0.241 H* (0.000-0.034) ng/mL Coagulation 09/21/17 09/21/17 Range/Units 00:46 05:51 APTT 58.0 H 51.0 H (22.0-30.0) sec CBC 09/21/17 Range/Units 05:51 WBC 10.1 (3.8-10.6) k/uL RBC 4.11 (3.80-5.40) m/uL Hgb 10.6 L (11.4-16.0) gm/dL Hct 37.2 (34.0-46.0) % Plt Count 449 (150-450) k/uL Comprehensive Metabolic Panel 09/21/17 Range/Units 05:51 Sodium 137 (137-145) mmol/L Potassium 3.1 L (3.5-5.1) mmol/L Chloride 93 L (98-107) mmol/L Carbon Dioxide 32 H (22-30) mmol/L BUN 22 H (7-17) mg/dL Creatinine 0.84 (0.52-1.04) mg/dL Glucose 86 (74-99) mg/dL Calcium 8.8 (8.4-10.2) mg/dL AST 20 (14-36) U/L ALT 16 (9-52) U/L Alkaline Phosphatase 47 (38-126) U/L Total Protein 5.2 L (6.3-8.2) g/dL Albumin 2.7 L (3.5-5.0) g/dL Current Medications Generic Name Dose Route Start Last Admin Trade Name Freq PRN Reason Stop Dose Admin Acetaminophen 650 mg 09/20/17 06:41 Tylenol Tab PO Q6HR PRN Mild Pain or Fever > 100.5 Hydrocodone Bitart/Acetaminophen 1 each 09/20/17 21:00 09/20/17 17:41 [place] 7.5-325 PO 1 each BID MARLA Administration Hydrocodone Bitart/Acetaminophen 1 each 09/20/17 13:37 [place] 7.5-325 PO Q6HR PRN Pain Acetazolamide 250 mg 09/21/17 09:00 Diamox PO DAILY MARLA Al Hydroxide/Mg Hydroxide 30 ml 09/20/17 13:45 Maalox PO Q6H PRN Indigestion Albuterol/Ipratropium 3 ml 09/20/17 13:37 Duoneb 0.5 Mg-3 Mg/3 Ml Soln INHALATION RT-Q4H PRN BRONCHODILATOR Albuterol/Ipratropium 3 ml 09/20/17 16:00 09/21/17 08:40 Duoneb 0.5 Mg-3 Mg/3 Ml Soln INHALATION 3 ml RT-QID MARLA Administration Alprazolam 0.25 mg 09/20/17 16:00 Xanax PO TID PRN Anxiety Aspirin 81 mg 09/20/17 21:00 09/21/17 09:00 Aspirin PO 81 mg BID MARLA Administration Bisacodyl 10 mg 09/20/17 13:37 Dulcolax RECTAL DAILY PRN Constipation Budesonide 1 mg 09/20/17 20:00 09/21/17 08:40 Pulmicort INHALATION 1 mg RT-BID MARLA Administration Ceftriaxone Sodium 1,000 mg 09/20/17 11:15 09/21/17 08:52 Rocephin IVP 1,000 mg Q24HR MARLA Administration Cholecalciferol 2,000 unit 09/21/17 09:00 Vitamin D3 PO DAILY [facility] Duloxetine HCl 60 mg 09/20/17 21:00 09/21/17 08:59 Cymbalta PO 60 mg BID MARLA Administration Escitalopram Oxalate 20 mg 09/21/17 09:00 09/21/17 08:58 Lexapro PO 20 mg DAILY MARLA Administration Famotidine 20 mg 09/20/17 09:00 09/21/17 08:59 Pepcid PO 20 mg BID MARLA Administration Furosemide 40 mg 09/20/17 16:00 09/20/17 18:45 Lasix PO 40 mg BID@0900,1600 MARLA Administration Gabapentin 200 mg 09/20/17 21:00 09/20/17 19:57 Neurontin PO 200 mg BID MARLA Administration Heparin Sodium (Porcine) 0 unit 09/20/17 15:12 Heparin IV PER PROTOCOL PRN Low PTT Protocol Sodium Chloride 1,000 mls @ 20 mls/hr 09/20/17 06:45 09/21/17 08:15 Saline 0.9% IV 20 mls/hr .Q24H MARLA Administration Heparin Sodium/Dextrose 25,000 500 mls @ 20.03 mls/hr 09/20/17 15:15 18:48 unit/ IV Solution IV 9.2 units/kg/hr .Q24H MARLA 20.03 mls/hr Protocol Administration 9.2 UNITS/KG/HR Insulin Aspart 0 unit 09/20/17 17:30 09/21/17 06:11 Novolog SQ Not Given ACHS [facility] Protocol Levothyroxine Sodium 125 mcg 09/21/17 06:00 09/21/17 09:01 Synthroid PO 125 mcg DAILY@0600 MARLA Administration Lidocaine 1 patch 09/20/17 13:37 Lidoderm TOPICAL Q12H PRN joint pain Loratadine 10 mg 09/21/17 09:00 Claritin PO DAILY [facility] Melatonin 10 mg 09/20/17 21:00 Melatonin PO HS PRN Insomnia Metoprolol Succinate 25 mg 09/21/17 09:00 Toprol Xl PO DAILY [facility] Naloxone HCl 0.2 mg 09/20/17 06:41 Narcan IV Q2M PRN Opioid Reversal Naldemedine Tosylate 0.2 mg 09/21/17 09:00 [Symproic] PO DAILY MARLA Pantoprazole Sodium 40 mg 09/21/17 06:00 09/21/17 08:58 Protonix PO 40 mg DAILY@0600 MARLA Administration Polyethylene Glycol 17 gm 09/20/17 21:00 09/20/17 19:58 Miralax PO 17 gm HS MARLA Administration Potassium Chloride 40 meq 09/21/17 10:00 09/21/17 09:07 K-Dur 20 PO 09/21/17 12:01 40 meq Q2HR MARLA Administration Quetiapine Fumarate 12.5 mg 09/20/17 21:00 09/20/17 19:56 Seroquel PO 12.5 mg HS MARLA Administration Senna/Docusate Sodium 2 each 09/20/17 21:00 09/20/17 19:57 Senokot-S PO 2 each BID MARLA Administration Sodium Chloride 2 spray 09/20/17 13:37 Deep Sea NASAL DAILY PRN DRYNESS Topiramate 50 mg 09/20/17 21:00 09/20/17 19:58 Topamax PO 50 mg BID MARLA Administration Intake and Output 09/20/17 09/21/17 09/21/17 22:59 06:59 14:59 Intake Total 150 150 Balance 150 150 Intake: Oral 150 150 Other: Voiding Method Diaper Diaper Incontinent Incontinent # Voids 2 1 Weight 82.5 kg 09/21/17 05:51 09/21/17 05:51 EKG Interpretations (text) EKG shows sinus tachycardia with nonspecific ST-T wave changes. Assessment and Plan Plan: Assessment and plan #1 hypoxic respiratory failure, could be secondary to the fact the patient was not getting oxygen for a brief period of time. Chest x-ray did not reveal any acute pulmonary process. #2 COPD #3 acute on chronic diastolic congestive heart failure #4 hypertension Number 5 hypothyroidism #6 hyperlipidemia #7 pulmonary hypertension #8 chronic normocytic anemia #9 chronic contracture and deformity of the lower extremities and upper extremities bilaterally #10 obesity #11 fecal impaction #12 abnormal troponin, likely secondary to oxygen supply and demand mismatch. Patient had an echo performed in July which revealed a normal left ventricular systolic function. Moderate to severe tricuspid regurg and severe pulmonary hypertension noted. Plan We will not repeat an echocardiogram with Doppler study on this admission. We' ll discontinue the IV heparin. Further recommendations to follow. DNP note has been reviewed, I agree with a documented findings and plan of care. Patient was seen and examined.
[2017-09-21 11:52] LABS: Glucose,Whole Blood 117 mg/dL (75-99)
[2017-09-21] MEDS: HYDROcodone/APAP 7.5-325MG 1 EACH TAB PO SCH ×2 (12:41→21:39)
[2017-09-21 13:16] LABS: Hemoglobin A1C 4.4 % (4.0-6.0)
--- NOTE | 2017-09-21 13:22 | P.PN ---
Subjective Progress Note Date: 09/21/17 Principal diagnosis: Shortness of breath, Abdominal discomfort This is a very pleasant 77-year-old female patient who resides at [facility] on the [place]. She has a history of chronic atrial fibrillation, diastolic congestive heart failure, gastroesophageal reflux disease, hyperlipidemia, hypertension, morbid obesity, obstructive sleep apnea and noncompliant with CPAP , idiopathic peripheral autonomic neuropathy, chronic urinary tract infections, osteoarthritis, hypothyroidism. She says a history of chronic obstructive pulmonary disease with chronic hypoxic respiratory failure and utilizes oxygen 24/7. She also has a history of urosepsis complicated by prolonged ventilatory dependent respiratory failure requiring tracheostomy and PEG tube placements with subsequent removals. This is a real 13 years ago. She has been left bedridden been significantly disabled. She has crippling deformities of the upper and lower extremities. She is nonambulatory. She was complaining of shortness of breath while at [facility]. She was hypoxic with O2 saturations in the 50s according to the daughter. When EMS arrived they realized that the oxygen was not attached and brought her to the emergency room for evaluation. She is seen while in the ER. She is awake and alert in no acute distress. She does have some history of dementia. She is saturating in the mid 90s on 6 L high flow nasal cannula currently. She is slightly tachycardic. Temperature 99.1. Blood pressure stable. White count 13.5. Hemoglobin 10.5. Bicarb 32. Creatinine 0.90. Troponin 0.092, 0.295. ProBNP 3390. Urinalysis does reveal large leukocyte esterase greater than 182 WBCs and bacteria. Culture is pending. She has been initiated on Rocephin. Her chest x-ray shows no significant change from previous study 08/08/2017. No consolidations. No pneumothorax. She was also having complaints of abdominal discomfort and abdominal computed tomography scan was done which revealed choledocholelithiasis in the distal common bile duct. There is also prominent stool in the rectum with apparent wall thickening suggestive of component of fecal impaction or constipation. There is also diffuse bladder wall thickening considered for cystitis. GI services has been consulted. They're recommending conservative treatment versus ERCP at this time. The patient was seen again today 10/01/2017 in follow-up on the selective care unit. She remains awake and alert in no acute distress. She states she is breathing quite a bit better today as compared to yesterday. He is continued on 6 L/m per nasal cannula. She is maintaining good O2 saturations in the high 90s. The patient is anxious about turning it down any further. She is on 6 L in the outpatient setting. She remains afebrile. Hemodynamically stable. White count 10.0. Hemoglobin 10.6. Creatinine 0.84. TSH 0.922. Objective - Vital Signs Vital signs: Vital Signs Temp 97 F L 09/21/17 12:00 Pulse 64 09/21/17 12:01 Resp 20 09/21/17 12:00 BP 100/60 09/21/17 12:00 Pulse Ox 99 09/21/17 12:00 Intake & Output 09/20/17 09/21/17 09/21/17 18:59 06:59 18:59 Intake Total 150 150 320 Output Total 150 Balance 0 150 320 Weight 82.5 kg Intake: IV 320 Heparin Sodium,Porcine/ 160 D5w Pmx 25,000 unit In Dextrose/Water 1 500ml. bag @ 9.2 UNITS/KG/HR 20. 03 mls/hr IV .Q24H [facility] Rx #:[id number] Sodium Chloride 0.9% 1, 160 000 ml @ 20 mls/hr IV . Q24H MARLA Rx#:[id number] Oral 150 150 Output: Urine 150 Other: Voiding Method Diaper Diaper Incontinent Incontinent # Voids 2 1 - Exam Morbidly obese, calm and comfortable, nonacute distress. The patient is communicating and she has been alert and active and appropriate at this point in time. She is resting comfortably in bed. Head exam was generally normal. There was no scleral icterus or corneal arcus. Mucous membranes were moist. Neck is supple and short and the patient has significant crowding of the posterior oropharynx and the scar of previous tracheostomy tube insertion is seen over the anterior neck. Lung sounds are diminished in lung bases. There are some bibasilar crackles. No wheezes or rhonchi.Cardiac exam revealed the PMI to be normally situated and sized. The rhythm was regular and no extrasystoles were noted during several minutes of auscultation. The first and second heart sounds were normal and physiologic splitting of the second heart sound was noted. There were no murmurs, rubs, clicks, or gallops. Abdomen is morbidly obese soft nontender. No direct tenderness rebound tensile guarding. Organs cannot be accurately palpated. No ascites. Extremities show chronic edema and chronic deformities in the ankles, feet, and the wrist and the fingers bilaterally. The patient has no open wounds or sores. Sensation is diminished. Motor function in the lower extremity 0-5, 3 out of 5 in the upper extremity. Neurologically, the patient is awake and alert and following commands and answering questions appropriately. - Labs CBC & Chem 7: 09/21/17 05:51 09/21/17 05:51 Labs: Abnormal Lab Results - Last 24 Hours (Table) 09/20/17 09/20/17 09/20/17 Range/Units 15:05 18:19 21:15 Hgb (11.4-16.0) gm/dL MCHC (31.0-37.0) g/dL RDW (11.5-15.5) % APTT (22.0-30.0) sec Potassium (3.5-5.1) mmol/L Chloride (98-107) mmol/L Carbon Dioxide (22-30) mmol/L BUN (7-17) mg/dL POC Glucose (mg/dL) 133 H 233 H (75-99) mg/dL Troponin I 0.241 H* (0.000-0.034) ng/mL Total Protein (6.3-8.2) g/dL Albumin (3.5-5.0) g/dL 09/21/17 09/21/17 09/21/17 Range/Units 00:46 05:51 05:51 Hgb 10.6 L (11.4-16.0) gm/dL MCHC 28.4 L (31.0-37.0) g/dL RDW 17.6 H (11.5-15.5) % APTT 58.0 H (22.0-30.0) sec Potassium 3.1 L (3.5-5.1) mmol/L Chloride 93 L (98-107) mmol/L Carbon Dioxide 32 H (22-30) mmol/L BUN 22 H (7-17) mg/dL POC Glucose (mg/dL) (75-99) mg/dL Troponin I (0.000-0.034) ng/mL Total Protein 5.2 L (6.3-8.2) g/dL Albumin 2.7 L (3.5-5.0) g/dL 09/21/17 09/21/17 09/21/17 Range/Units 05:51 06:01 11:51 Hgb (11.4-16.0) gm/dL MCHC (31.0-37.0) g/dL RDW (11.5-15.5) % APTT 51.0 H (22.0-30.0) sec Potassium (3.5-5.1) mmol/L Chloride (98-107) mmol/L Carbon Dioxide (22-30) mmol/L BUN (7-17) mg/dL POC Glucose (mg/dL) 120 H 117 H (75-99) mg/dL Troponin I (0.000-0.034) ng/mL Total Protein (6.3-8.2) g/dL Albumin (3.5-5.0) g/dL Assessment and Plan Assessment: Impression: #1 Acute on chronic hypoxic respiratory failure secondary to make appropriate tubing connection at the [facility]. Chest x-ray shows no acute pulmonary process. Recovered. Maintaining good O2 saturations in the 90s on 6 L/m per nasal cannula. #2 Acute shortness of breath secondary to above. #3 Abdominal discomfort. Computed tomography scan shows choledocholelithiasis in the distal common bile duct. There is also prominent stool in the rectum with apparent wall thickening suggestive of fecal impaction or constipation. No evidence of high-grade bowel obstruction. There is also some consideration for cystitis with diffuse bladder wall thickening. #4 Morbid obesity. #5 Obesity/hypoventilation syndrome/obstructive sleep apnea, noncompliant with CPAP in the outpatient setting. 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 Patient is bedridden and nonambulatory for the past 13 years. #7 History of frequent urinary tract infections. Current culture is pending. Currently on Rocephin. #8 Hypertension. #9 Hyperlipidemia. #10 Hypothyroidism. #11 Idiopathic peripheral neuropathy. #12 History of anxiety/depression. #13 Gastroesophageal reflux disease. #14 History of diastolic congestive heart failure. #15 Severe pulmonary hypertension. #16 Chronic normocytic anemia. #17 Previous infections with VRE and Proteus mirabilis with urosepsis requiring prolonged respiratory failure requiring tracheostomy tube and PEG tube insertions and subsequent removals proximate 13 years ago. Plan: The patient was seen and evaluated by Dr. Arita. Labs were reviewed. He did review her CPAP settings as well. The patient is stable from the pulmonary standpoint. Maintaining good O2 saturations in the 90s on 6 L high flow nasal cannula. GI services were consulted and there are no plans for ERCP at this time. She has been initiated on GoLYTELY regarding the fecal impaction as well. We will continue to follow and make further recommendations based on her clinical status. I, the cosigning physician, performed a history & physical examination of the patient. Lungs sounds are clear. Maintaining good O2 saturations in the 90s on 6 L high flow nasal cannula. I discussed the assessment and plan of care with my nurse practitioner, Bhavani Fernandez. I attest to the above consultation as dictated by her.
--- NOTE | 2017-09-21 14:12 | P.PN ---
Subjective Progress Note Date: 09/21/17 77-year-old female patient of my patient currently residing at [facility] with past medical history COPD on 4 L Oxygen , hypertension, obstructive sleep apnea refusing BiPAP/CPAP nighttime, chronic pain, gastric esophageal reflux disease, hypothyroidism, ALLERGIC rhinitis, osteoarthritis, idiopathic peripheral autonomic neuropathy, chronic urinary tract infections, vitamin D deficiency, morbid obesity, bed bound for the past 13 years, h/o prolonged intubation leading to tracheostomy which was finally removed, has been bedbound ever seen. She was recently admitted from her facility secondary to pulmonary hypertension COPD exacerbation, required 10 L off O2 during the last admission, along with diuretics, and tapering IV steroids. She was discharged to [facility] on 4 L nasal cannula, and is stable. Patient was transferred to the emergency room secondary to increasing shortness of breath, no significant cough patient mentions that it's difficult to breathe, and has had abdominal pain off and on with chronic constipation for several years now. She also has early satiety, no appetite, weight loss of approximately 40 pounds in 6 months, during the last admission patient was seen by general surgery who recommended colonoscopy for the problem. Multiple recommendations were made for colonoscopy and the patient has refused. She has a recent urinalysis that was growing Proteus mirabilis significant for a urinary tract tract infection and was started on ampicillin 500 mg 4 times a day at [facility] started 2 days ago. Patient denies any fever but has low- grade temp of 99.1 and double basic count of 13 no melena no hematuria She also has dysphagia, we got an outpatient appointment for an EGD In the emergency room with her abdominal pain and difficulty breathing, she was noted to have on CT imaging correlation for chledocholithiasis in the distal common bile duct, prominent stool in the rectum with fecal impaction, diffuse bladder wall thickening constipation for cystitis. Lipase normal on 41 creatinine of 0.9 AST off 50 alkaline phosphatase of [address] Kellogg has been consulted and Dr. Arita and has been consulted. Troponins were also noted to be slightly elevated on admission her first set troponin was 0.092 and subsequent troponin was 0.295 patient was started on heparin drip, and consult was made with cardiology 09/21: Patient has been seen by Dr. Kellogg and will proceed with ERCP if pulmonary clearance is obtained from Dr. Arita not necessary at this point. POA gave consent.. At this time, conservative measures. Patient is on full liquids. Patient has been seen by Dr. Arita and continued on oxygen, DuoNeb treatments and Rocephin which is for UTI. Daughter to bring in CPAP from the retirement. Cardiology has evaluated the patient and ruled out acute coronary syndrome.. Potassium will be replaced. White count is normal at 10.1. TSH 0.922. Repeat liver function tests are within normal limits and total bilirubin 0.3. Patient has started taking GoLYTELYthis morning. She has not had a bowel movement since admission. IV fluids changed to saline lock. Steroids were discontinued yesterday. She denies any wheezing. Objective - Vital Signs Vital signs: Vital Signs Temp 97 F L 09/21/17 07:35 Pulse 67 09/21/17 07:35 Resp 24 09/21/17 07:35 BP 120/88 09/21/17 07:35 Pulse Ox 95 09/21/17 07:35 Intake & Output 09/20/17 09/21/17 09/21/17 18:59 06:59 18:59 Intake Total 150 150 Output Total 150 Balance 0 150 Weight 82.5 kg Intake: Oral 150 150 Output: Urine 150 Other: Voiding Method Diaper Incontinent # Voids 2 1 - Exam General appearance: cooperative, no acute distress - EENT Eyes: anicteric sclerae, EOMI, PERRLA, dentition normal, normal appearance ENT: NA/AT, normal oropharynx - Neck Neck: normal ROM - Respiratory Respiratory: bilateral: CTA, negative: diminished, dullness, rales, rhonchi, wheezing - Cardiovascular Heart sounds: normal: S1, S2 Abnormal Heart Sounds: systolic murmur, no diastolic murmur, no rub, no S3 Gallop, no S4 Gallop, no click, no other - Gastrointestinal General gastrointestinal: normal bowel sounds, soft - Integumentary Integumentary: normal, normal turgor - Neurologic Neurologic: CNII-XII intact - Musculoskeletal Musculoskeletal: generalized weakness (Patient can move all 4 extremities however limited secondary to contract contractures in the hands) - Psychiatric Psychiatric: A&O x's 3, appropriate affect, intact judgment & insight - Labs CBC & Chem 7: 09/21/17 05:51 09/21/17 05:51 Labs: Abnormal Lab Results - Last 24 Hours (Table) 09/20/17 09/20/17 09/20/17 Range/Units 12:08 15:05 18:19 Hgb (11.4-16.0) gm/dL MCHC (31.0-37.0) g/dL RDW (11.5-15.5) % APTT (22.0-30.0) sec Potassium (3.5-5.1) mmol/L Chloride (98-107) mmol/L Carbon Dioxide (22-30) mmol/L BUN (7-17) mg/dL POC Glucose (mg/dL) 133 H (75-99) mg/dL Troponin I 0.295 H* 0.241 H* (0.000-0.034) ng/mL Total Protein (6.3-8.2) g/dL Albumin (3.5-5.0) g/dL 09/20/17 09/21/17 09/21/17 Range/Units 21:15 00:46 05:51 Hgb 10.6 L (11.4-16.0) gm/dL MCHC 28.4 L (31.0-37.0) g/dL RDW 17.6 H (11.5-15.5) % APTT 58.0 H (22.0-30.0) sec Potassium (3.5-5.1) mmol/L Chloride (98-107) mmol/L Carbon Dioxide (22-30) mmol/L BUN (7-17) mg/dL POC Glucose (mg/dL) 233 H (75-99) mg/dL Troponin I (0.000-0.034) ng/mL Total Protein (6.3-8.2) g/dL Albumin (3.5-5.0) g/dL 09/21/17 09/21/17 09/21/17 Range/Units 05:51 05:51 06:01 Hgb (11.4-16.0) gm/dL MCHC (31.0-37.0) g/dL RDW (11.5-15.5) % APTT 51.0 H (22.0-30.0) sec Potassium 3.1 L (3.5-5.1) mmol/L Chloride 93 L (98-107) mmol/L Carbon Dioxide 32 H (22-30) mmol/L BUN 22 H (7-17) mg/dL POC Glucose (mg/dL) 120 H (75-99) mg/dL Troponin I (0.000-0.034) ng/mL Total Protein 5.2 L (6.3-8.2) g/dL Albumin 2.7 L (3.5-5.0) g/dL Assessment and Plan Plan: 1. Acute on chronic hypoxemic respiratory failure with hypercarbic respiratory failure secondary to pulmonary hypertension due to tubing connection not connected to oxygen at [facility], acute on chronic diastolic CHF, restrictiion in diaphragmatic excursion secondary to abdominal distention from chronic constipation, patient was given Solu-Medrol which would be discontinued, continue nebulized albuterol Atrovent, O2 at 6 L is a cannula 2. Acute abdominal pain recurrent acute on chronic, with choledocholithiasis in the distal common bile duct, as well as fecal impaction and urinary tract infection acute. Patient has liver cyst stable 3.5 x 4.1 cm No evidence of high-grade bowel obstruction Dr. Kellogg to see the patient for common bile duct stone, without any common bile duct dilatation. EGD was discussed and is agreeable, ERCP has been contemplated however in view off her pulmonary status, pulmonary has to clear her prior to ERCP however in view of the elevated rising troponins, any surgical procedures currently on hold 3. Recurrent dysphagia and early satiety without any aspirative events, history of GERD, and recurrent epigastric abdominal pain, EGD was discussed with the patient and is agreeable to this 4. Acute urinary tract infection with Proteus mirabilis growing on the most recent urine culture, Rocephin 1 g every 24 hours then can be transitioned to oral medication 5. Elevated troponin without NSTEMI with a rise in second troponin of 0.29, patient will be heparinized, and will be seen consultation by cardiology Previous echocardiogram performed July 2017 EF 55-60% right ventricular enlargement moderate,, continue on beta blockers, aspirin, 6. Obesity with hypoventilation syndrome and obstructive sleep apnea noncompliant with CPAP on the retirement, chronic hypercarbia, on O2 4 L maintenance in retirement, currently receiving 6 L nasal cannula. Daughter to bring and CPAP from the retirement. 7. Severe secondary pulmonary hypertension from obstructive sleep apnea, noncompliant to CPAP machine, 8. Fecal impaction with chronic constipation without any bowel obstruction, patient refused any colonoscopies in the past, refused any enemas, GoLYTELY for today, and this can be followed with medications titrated the next few days. Maintenance symproic for OIC along with other laxatives. She might benefit from Amitiza or linzess after her discharge 9. Acute on chronic diastolic heart failure. Continue Toprol-XL 25 mg orally once every day, continue patient on Lasix 40 bid, IV Lasix given in the ER, BNP is minimally elevated on 3300 no evidence of pleural effusion or pericardial effusion, continue to monitor input and output and daily weight Ventricle systolic pressure of 90 moderate to severe TR 10. Medical debility, bedbound . Physical therapy evaluation, discharge to [facility] once patient stabilizes 11. GERD. Continue Protonix 40 mg orally once every day. 12. Hypertension and hypertensive cardiovascular disease. Continue Toprol-XL 25 mg orally once every day, amlodipine 5 mg orally once every day. 13. Hyperlipidemia. Low-cholesterol diet. 14. Hypothyroidism. Continue Synthroid 125 g orally once every day. 15. Peripheral neuropathy. Continue gabapentin 200 mg orally twice every day. 16. Recurrent depression. Continue patient on Cymbalta 60 mg orally once every day and Lexapro 10 mg orally once every day. 17. Osteoarthritis with joint deformities including the right hand as well as bilateral lower extremity's. History of prolonged hospitalization including intubation with developmont of significant paraparesis of both lower extremities with significant deformity of the right wrist. 18. 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 Continue patient on Lexapro 20 mg orally once every day. On weaning doses of Seroquel 12.5 mg every day 19. ALLERGIC rhinitis. Continue patient on Claritin 10 mg orally once every day. 20. DVT prophylaxis. Currently on IV heparin 24 hours. 21. GI prophylaxis. Continue Protonix 40 mg orally once every day. Discharge plan: Return to [facility] Impression and plan of care have been directed as dictated by the signing physician. Mary Souza nurse practitioner acting as scribe for signing physician.
[2017-09-21] MEDS: SPIRONOLACTONE 25 MG TAB PO SCH (14:22)
[2017-09-21 16:57] LABS: Glucose,Whole Blood 86 mg/dL (75-99)
[2017-09-21 20:22] LABS: Glucose,Whole Blood 110 mg/dL (75-99)
[2017-09-21] MEDS: QUEtiapine 25 MG TAB PO SCH (21:40)
[2017-09-21] MEDS: POLYETHYLENE GLYCOL 3350 17 GM POWD.PACK PO SCH (21:42)
[2017-09-22 02:23] LABS: Glucose,Whole Blood 96 mg/dL (75-99)
[2017-09-22 07:01] LABS: Glucose,Whole Blood 94 mg/dL (75-99)
[2017-09-22] MEDS: TOPIRAMATE 25 MG TAB PO SCH ×2 (08:02→21:14)
[2017-09-22] MEDS: FUROSEMIDE 40 MG TAB PO SCH ×2 (08:02→17:02)
[2017-09-22] MEDS: METOPROLOL SUCCINATE (ER) 50 MG TAB.ER.24H PO SCH (08:02)
[2017-09-22 08:03] LABS: Anisocytosis Slight; Basophils % (A) 0 %; Eosinophils # (A) 0.8 k/uL (0-0.7); Eosinophils % (A) 8 %; HCT 32.3 % (34.0-46.0); HGB 10.1 gm/dL (11.4-16.0); Hypochromasia Moderate; Lymphocytes # (A) 1.2 k/uL (1.0-4.8); Lymphocytes % (A) 12 %; MCH 26.8 pg (25.0-35.0); MCHC 31.3 g/dL (31.0-37.0); MCV 85.7 fL (80.0-100.0); Mean Platelet Volume 7.3; Monocytes # (A) 0.8 k/uL (0-1.0); Monocytes % (A) 8 %; Neutrophils # (A) 7.2 k/uL (1.3-7.7); Neutrophils % (A) 70 %; Platelet Count 433 k/uL (150-450); Poikilocytosis Moderate; RBC 3.77 m/uL (3.80-5.40); RDW 17.9 % (11.5-15.5); WBC 10.2 k/uL (3.8-10.6)
[2017-09-22] MEDS: GABAPENTIN 100 MG CAP PO SCH ×2 (08:03→21:13)
[2017-09-22] MEDS: acetaZOLAMIDE 250 MG TAB PO SCH (08:03)
[2017-09-22] MEDS: ASPIRIN 81 MG PO SCH ×2 (08:04→21:13)
[2017-09-22] MEDS: CHOLECALCIFEROL 1,000 UNIT TAB PO SCH (08:04)
[2017-09-22] MEDS: SPIRONOLACTONE 25 MG TAB PO SCH (08:05)
[2017-09-22] MEDS: LEVOTHYROXINE 125 MCG TAB PO SCH (08:05)
[2017-09-22] MEDS: FAMOTIDINE 20 MG TAB PO SCH ×2 (08:05→21:14)
[2017-09-22] MEDS: DULoxetine HCL 60 MG CAPSULE.DR PO SCH ×2 (08:06→21:13)
[2017-09-22] MEDS: ESCITALOPRAM 20 MG TAB PO SCH (08:06)
[2017-09-22] MEDS: LORATADINE 10 MG TAB PO SCH (08:07)
[2017-09-22] MEDS: HYDROcodone/APAP 7.5-325MG 1 EACH TAB PO SCH ×2 (08:11→21:13)
[2017-09-22 08:12] LABS: Albumin 2.6 g/dL (3.5-5.0); Bilirubin, Delta 0.3 mg/dL (0.0-0.2); Calcium 8.6 mg/dL (8.4-10.2); Potassium 4.4 mmol/L (3.5-5.1); Total Bilirubin 0.3 mg/dL (0.2-1.3); Total Protein 4.7 g/dL (6.3-8.2)
[2017-09-22] MEDS: BUDESONIDE 1 MG/2 ML NEBU INHALATION SCH ×2 (08:15→19:24)
[2017-09-22] MEDS: IPRATROPIUM-ALBUTEROL 3 ML NEB INHALATION SCH ×4 (08:15→19:24)
[2017-09-22] MEDS: ALPRAZolam 0.25 MG TAB PO PRN ×2 (08:20→21:32)
[2017-09-22] MEDS: PANTOPRAZOLE 40 MG TABLET PO SCH (08:22)
[2017-09-22] MEDS: cefTRIAXone IN SWFI 1,000 MG/10 ML SYRINGE IVP SCH ×3 (08:23→17:02)
[2017-09-22] MEDS: SENNOSIDES-DOCUSATE SODIUM 1 EACH TAB PO SCH ×2 (08:24→21:12)
[2017-09-22] MEDS: INSULIN ASPART 100 UNIT/ML 1 ML 10 ML VIAL SQ SCH ×4 (08:25→21:10)
[2017-09-22 11:14] LABS: Glucose,Whole Blood 131 mg/dL (75-99)
[2017-09-22] MEDS: NALDEMEDINE TOSYLATE PO SCH (11:34)
--- NOTE | 2017-09-22 11:45 | P.PN ---
Subjective Progress Note Date: 09/22/17 Principal diagnosis: Choledocholithiasis Denies abdominal pain. LFTs within normal limits this morning. Afebrile. Patient now passing bowel movements with GoLYTELY. Objective - Vital Signs Vital signs: Vital Signs Temp 97.9 F 09/22/17 07:10 Pulse 76 09/22/17 08:38 Resp 18 09/22/17 08:00 BP 157/67 09/22/17 09:50 Pulse Ox 100 09/22/17 08:15 Intake & Output 09/21/17 09/22/17 09/22/17 18:59 06:59 18:59 Intake Total 560 300 Output Total 150 3 Balance 410 297 Weight 82.5 kg 82.5 kg Intake: IV 320 Heparin Sodium,Porcine/ 160 D5w Pmx 25,000 unit In Dextrose/Water 1 500ml. bag @ 9.2 UNITS/KG/HR 20. 03 mls/hr IV .Q24H [facility] Rx #:[id number] Sodium Chloride 0.9% 1, 160 000 ml @ 20 mls/hr IV . Q24H [facility]LA Rx#:[id number] Oral 240 300 Output: Urine 150 3 Other: Voiding Method Diaper Incontinent Incontinent Incontinent # Voids 1 1 1 # Bowel Movements 3 1 - Exam General appearance: The patient is alert, oriented, in no acute distress. HET: Head is normocephalic and atraumatic. Pupils are equal and reactive. Oropharynx is clear without lesions. Neck: Supple without lymphadenopathy. Trachea midline. Heart: S1 S2. Regular rate and rhythm. Lungs: No crackles or wheezes are heard. Abdomen: Soft, nontender, nondistended with bowel sounds. No peritoneal signs. No palpable organomegaly or masses. Extremities: Crippling deformities. Neurological: No focal deficits. Strength and sensation are grossly intact. - Labs CBC & Chem 7: 09/22/17 07:41 09/22/17 07:41 Labs: Abnormal Lab Results - Last 24 Hours (Table) 09/21/17 09/21/17 09/22/17 Range/Units 11:51 20:20 07:41 RBC 3.77 L (3.80-5.40) m/uL Hgb 10.1 L (11.4-16.0) gm/dL Hct 32.3 L (34.0-46.0) % RDW 17.9 H (11.5-15.5) % Eosinophils # 0.8 H (0-0.7) k/uL Sodium (137-145) mmol/L Chloride (98-107) mmol/L Carbon Dioxide (22-30) mmol/L BUN (7-17) mg/dL POC Glucose (mg/dL) 117 H 110 H (75-99) mg/dL Delta Bilirubin (0.0-0.2) mg/dL Total Protein (6.3-8.2) g/dL Albumin (3.5-5.0) g/dL 09/22/17 09/22/17 Range/Units 07:41 11:10 RBC (3.80-5.40) m/uL Hgb (11.4-16.0) gm/dL Hct (34.0-46.0) % RDW (11.5-15.5) % Eosinophils # (0-0.7) k/uL Sodium 136 L (137-145) mmol/L Chloride 95 L (98-107) mmol/L Carbon Dioxide 31 H (22-30) mmol/L BUN 19 H (7-17) mg/dL POC Glucose (mg/dL) 131 H (75-99) mg/dL Delta Bilirubin 0.3 H (0.0-0.2) mg/dL Total Protein 4.7 L (6.3-8.2) g/dL Albumin 2.6 L (3.5-5.0) g/dL Assessment and Plan (1) Choledocholithiasis Narrative/Plan: 77-year-old female with a history of PALMIRA, COPD O2 dependent, cholecystectomy, physical debility bedridden with crippling deformities presents with acute and chronic mid abdominal epigastric pain mild elevation of troponin with radiographic imaging reporting choledocholithiasis biliary duct dilation with unremarkable pancreatic liver enzymes. Abdominal pain possibly related to choledocholithiasis. Presently without abdominal pain. Current Visit: Yes Status: Acute Code(s): K80.50 - CALCULUS OF BILE DUCT W/ O CHOLANGITIS OR CHOLECYST W/O OBST SNOMED Code(s): 709959077 Plan: 1. Supportive measures. Stool softeners daily. Inpatient ERCP/MRCP not planned at this time. If patient develops clinical symptoms of ascending cholangitis or changes in her LFTs will proceed accordingly. We'll follow as needed. Assessment and plan a care discussed with Dr. Kellogg
--- NOTE | 2017-09-22 12:34 | P.PN ---
Subjective Progress Note Date: 09/22/17 Principal diagnosis: Shortness of breath, Abdominal discomfort This is a very pleasant 77-year-old female patient who resides at [facility] on the [place]. She has a history of chronic atrial fibrillation, diastolic congestive heart failure, gastroesophageal reflux disease, hyperlipidemia, hypertension, morbid obesity, obstructive sleep apnea and noncompliant with CPAP , idiopathic peripheral autonomic neuropathy, chronic urinary tract infections, osteoarthritis, hypothyroidism. She says a history of chronic obstructive pulmonary disease with chronic hypoxic respiratory failure and utilizes oxygen 24/. She also has a history of urosepsis complicated by prolonged ventilatory dependent respiratory failure requiring tracheostomy and PEG tube placements with subsequent removals. This is a real 13 years ago. She has been left bedridden been significantly disabled. She has crippling deformities of the upper and lower extremities. She is nonambulatory. She was complaining of shortness of breath while at [facility]. She was hypoxic with O2 saturations in the 50s according to the daughter. When EMS arrived they realized that the oxygen was not attached and brought her to the emergency room for evaluation. She is seen while in the ER. She is awake and alert in no acute distress. She does have some history of dementia. She is saturating in the mid 90s on 6 L high flow nasal cannula currently. She is slightly tachycardic. Temperature 99.1. Blood pressure stable. White count 13.5. Hemoglobin 10.5. Bicarb 32. Creatinine 0.90. Troponin 0.092, 0.295. ProBNP 3390. Urinalysis does reveal large leukocyte esterase greater than 182 WBCs and bacteria. Culture is pending. She has been initiated on Rocephin. Her chest x-ray shows no significant change from previous study 08/08/2017. No consolidations. No pneumothorax. She was also having complaints of abdominal discomfort and abdominal computed tomography scan was done which revealed choledocholelithiasis in the distal common bile duct. There is also prominent stool in the rectum with apparent wall thickening suggestive of component of fecal impaction or constipation. There is also diffuse bladder wall thickening considered for cystitis. GI services has been consulted. They're recommending conservative treatment versus ERCP at this time. The patient was seen again today 09/21/2017 in follow-up on the selective care unit. She remains awake and alert in no acute distress. She states she is breathing quite a bit better today as compared to yesterday. He is continued on 6 L/m per nasal cannula. She is maintaining good O2 saturations in the high 90s. The patient is anxious about turning it down any further. She is on 6 L in the outpatient setting. She remains afebrile. Hemodynamically stable. White count 10.0. Hemoglobin 10.6. Creatinine 0.84. TSH 0.922. The patient is seen again today 09/22/2017 in follow-up on the regular medical floor where she is currently resting comfortably in bed she denies any worsening shortness of breath, cough or congestion. She is maintaining good O2 saturations up to 100% on 6 L/m per nasal cannula. White count 10.2. Hemoglobin 10.1. Creatinine 0.81. Objective - Vital Signs Vital signs: Vital Signs Temp 97.9 F 09/22/17 07:10 Pulse 80 09/22/17 12:09 Resp 18 09/22/17 08:00 BP 157/67 09/22/17 09:50 Pulse Ox 100 09/22/17 08:15 Intake & Output 09/21/17 09/22/17 09/22/17 18:59 06:59 18:59 Intake Total 560 300 Output Total 150 3 Balance 410 297 Weight 82.5 kg 82.5 kg Intake: IV 320 Heparin Sodium,Porcine/ 160 D5w Pmx 25,000 unit In Dextrose/Water 1 500ml. bag @ 9.2 UNITS/KG/HR 20. 03 mls/hr IV .Q24H MARLA Rx #:[id number] Sodium Chloride 0.9% 1, 160 000 ml @ 20 mls/hr IV . Q24H MARLA Rx#:[id number] Oral 240 300 Output: Urine 150 3 Other: Voiding Method Diaper Incontinent Incontinent Incontinent # Voids 1 1 1 # Bowel Movements 3 1 - Exam Morbidly obese, calm and comfortable, nonacute distress. The patient is communicating and she has been alert and active and appropriate at this point in time. She is resting comfortably in bed. Head exam was generally normal. There was no scleral icterus or corneal arcus. Mucous membranes were moist. Neck is supple and short and the patient has significant crowding of the posterior oropharynx and the scar of previous tracheostomy tube insertion is seen over the anterior neck. Lung sounds are diminished in lung bases. There are some bibasilar crackles. No wheezes or rhonchi.Cardiac exam revealed the PMI to be normally situated and sized. The rhythm was regular and no extrasystoles were noted during several minutes of auscultation. The first and second heart sounds were normal and physiologic splitting of the second heart sound was noted. There were no murmurs, rubs, clicks, or gallops. Abdomen is morbidly obese soft nontender. No direct tenderness rebound tensile guarding. Organs cannot be accurately palpated. No ascites. Extremities show chronic edema and chronic deformities in the ankles, feet, and the wrist and the fingers bilaterally. The patient has no open wounds or sores. Sensation is diminished. Motor function in the lower extremity 0-5, 3 out of 5 in the upper extremity. Neurologically, the patient is awake and alert and following commands and answering questions appropriately. - Labs CBC & Chem 7: 09/22/17 07:41 09/22/17 07:41 Labs: Abnormal Lab Results - Last 24 Hours (Table) 09/21/17 09/22/17 09/22/17 Range/Units 20:20 07:41 07:41 RBC 3.77 L (3.80-5.40) m/uL Hgb 10.1 L (11.4-16.0) gm/dL Hct 32.3 L (34.0-46.0) % RDW 17.9 H (11.5-15.5) % Eosinophils # 0.8 H (0-0.7) k/uL Sodium 136 L (137-145) mmol/L Chloride 95 L (98-107) mmol/L Carbon Dioxide 31 H (22-30) mmol/L BUN 19 H (7-17) mg/dL POC Glucose (mg/dL) 110 H (75-99) mg/dL Delta Bilirubin 0.3 H (0.0-0.2) mg/dL Total Protein 4.7 L (6.3-8.2) g/dL Albumin 2.6 L (3.5-5.0) g/dL 09/22/17 Range/Units 11:10 RBC (3.80-5.40) m/uL Hgb (11.4-16.0) gm/dL Hct (34.0-46.0) % RDW (11.5-15.5) % Eosinophils # (0-0.7) k/uL Sodium (137-145) mmol/L Chloride (98-107) mmol/L Carbon Dioxide (22-30) mmol/L BUN (7-17) mg/dL POC Glucose (mg/dL) 131 H (75-99) mg/dL Delta Bilirubin (0.0-0.2) mg/dL Total Protein (6.3-8.2) g/dL Albumin (3.5-5.0) g/dL Assessment and Plan Assessment: Impression: #1 Acute on chronic hypoxic respiratory failure secondary to disconnect of the tubing at the [facility]. Chest x-ray shows no acute pulmonary process. Recovered. Maintaining good O2 saturations in the 90s on 6 L/m per nasal cannula. #2 Acute shortness of breath secondary to above. #3 Abdominal discomfort. Computed tomography scan shows choledocholelithiasis in the distal common bile duct. There is also prominent stool in the rectum with apparent wall thickening suggestive of fecal impaction or constipation. No evidence of high-grade bowel obstruction. There is also some consideration for cystitis with diffuse bladder wall thickening. #4 Morbid obesity. #5 Obesity/hypoventilation syndrome/obstructive sleep apnea, noncompliant with CPAP in the outpatient setting. 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 Patient is bedridden and nonambulatory for the past 13 years. #7 History of frequent urinary tract infections. Current culture is pending. Currently on Rocephin. #8 Hypertension. #9 Hyperlipidemia. #10 Hypothyroidism. #11 Idiopathic peripheral neuropathy. #12 History of anxiety/depression. #13 Gastroesophageal reflux disease. #14 History of diastolic congestive heart failure. #15 Severe pulmonary hypertension. #16 Chronic normocytic anemia. #17 Previous infections with VRE and Proteus mirabilis with urosepsis requiring prolonged respiratory failure requiring tracheostomy tube and PEG tube insertions and subsequent removals proximate 13 years ago. Plan: The patient was seen and evaluated by Dr. Arita. Labs were reviewed. The patient is stable from the pulmonary standpoint. Maintaining good O2 saturations in the 90s on 6 L high flow nasal cannula. GI services were consulted and there are no plans for ERCP at this time. She did respond to the GoLYTELY and is having bowel movements. We will follow the patient on as- needed basis. I, the cosigning physician, performed a history & physical examination of the patient. Lungs sounds are clear. Maintaining good O2 saturations in the 90s on 6 L high flow nasal cannula. I discussed the assessment and plan of care with my nurse practitioner, Bhavani Fernandez. I attest to the above consultation as dictated by her.
--- NOTE | 2017-09-22 14:57 | P.PN ---
Subjective Progress Note Date: 09/22/17 77-year-old female patient of my patient currently residing at [facility] with past medical history COPD on 4 L Oxygen , hypertension, obstructive sleep apnea refusing BiPAP/CPAP nighttime, chronic pain, gastric esophageal reflux disease, hypothyroidism, ALLERGIC rhinitis, osteoarthritis, idiopathic peripheral autonomic neuropathy, chronic urinary tract infections, vitamin D deficiency, morbid obesity, bed bound for the past 13 years, h/o prolonged intubation leading to tracheostomy which was finally removed, has been bedbound ever seen. She was recently admitted from her facility secondary to pulmonary hypertension COPD exacerbation, required 10 L off O2 during the last admission, along with diuretics, and tapering IV steroids. She was discharged to [facility] on 4 L nasal cannula, and is stable. Patient was transferred to the emergency room secondary to increasing shortness of breath, no significant cough patient mentions that it's difficult to breathe, and has had abdominal pain off and on with chronic constipation for several years now. She also has early satiety, no appetite, weight loss of approximately 40 pounds in 6 months, during the last admission patient was seen by general surgery who recommended colonoscopy for the problem. Multiple recommendations were made for colonoscopy and the patient has refused. She has a recent urinalysis that was growing Proteus mirabilis significant for a urinary tract tract infection and was started on ampicillin 500 mg 4 times a day at [facility] started 2 days ago. Patient denies any fever but has low- grade temp of 99.1 and double basic count of 13 no melena no hematuria She also has dysphagia, we got an outpatient appointment for an EGD In the emergency room with her abdominal pain and difficulty breathing, she was noted to have on CT imaging correlation for chledocholithiasis in the distal common bile duct, prominent stool in the rectum with fecal impaction, diffuse bladder wall thickening constipation for cystitis. Lipase normal on 41 creatinine of 0.9 AST off 50 alkaline phosphatase of [address] Kellogg has been consulted and Dr. Arita and has been consulted. Troponins were also noted to be slightly elevated on admission her first set troponin was 0.092 and subsequent troponin was 0.295 patient was started on heparin drip, and consult was made with cardiology 09/21: Patient has been seen by Dr. Kellogg and will proceed with ERCP if pulmonary clearance is obtained from Dr. Arita not necessary at this point. POA gave consent.. At this time, conservative measures. Patient is on full liquids. Patient has been seen by Dr. Arita and continued on oxygen, DuoNeb treatments and Rocephin which is for UTI. Daughter to bring in CPAP from the senior living. Cardiology has evaluated the patient and ruled out acute coronary syndrome.. Potassium will be replaced. White count is normal at 10.1. TSH 0.922. Repeat liver function tests are within normal limits and total bilirubin 0.3. Patient has started taking GoLYTELYthis morning. She has not had a bowel movement since admission. IV fluids changed to saline lock. Steroids were discontinued yesterday. She denies any wheezing. 09/22: Patient has had multiple bowel movements since yesterday after receiving GoLYTELY. We will plan to advance her diet. She states she is feeling a little better and appetite is improving. Plan for discharge back to [facility] tomorrow. Objective - Vital Signs Vital signs: Vital Signs Temp 97.9 F 09/22/17 07:10 Pulse 80 09/22/17 12:09 Resp 18 09/22/17 08:00 BP 157/67 09/22/17 09:50 Pulse Ox 100 09/22/17 08:15 Intake & Output 09/21/17 09/22/17 09/22/17 18:59 06:59 18:59 Intake Total 560 300 Output Total 150 3 Balance 410 297 Weight 82.5 kg 82.5 kg Intake: IV 320 Heparin Sodium,Porcine/ 160 D5w Pmx 25,000 unit In Dextrose/Water 1 500ml. bag @ 9.2 UNITS/KG/HR 20. 03 mls/hr IV .Q24H [facility] Rx #:[id number] Sodium Chloride 0.9% 1, 160 000 ml @ 20 mls/hr IV . Q24H [facility]LA Rx#:[id number] Oral 240 300 Output: Urine 150 3 Other: Voiding Method Diaper Incontinent Incontinent Incontinent # Voids 1 1 1 # Bowel Movements 3 1 - Exam General appearance: cooperative, no acute distress - EENT Eyes: anicteric sclerae, EOMI, PERRLA, dentition normal, normal appearance ENT: NA/AT, normal oropharynx - Neck Neck: normal ROM - Respiratory Respiratory: bilateral: CTA, negative: diminished, dullness, rales, rhonchi, wheezing - Cardiovascular Heart sounds: normal: S1, S2 Abnormal Heart Sounds: systolic murmur, no diastolic murmur, no rub, no S3 Gallop, no S4 Gallop, no click, no other - Gastrointestinal General gastrointestinal: normal bowel sounds, soft - Integumentary Integumentary: normal, normal turgor - Neurologic Neurologic: CNII-XII intact - Musculoskeletal Musculoskeletal: generalized weakness (Patient can move all 4 extremities however limited secondary to contract contractures in the hands) - Psychiatric Psychiatric: A&O x's 3, appropriate affect, intact judgment & insight - Labs CBC & Chem 7: 09/22/17 07:41 09/22/17 07:41 Labs: Abnormal Lab Results - Last 24 Hours (Table) 09/21/17 09/22/17 09/22/17 Range/Units 20:20 07:41 07:41 RBC 3.77 L (3.80-5.40) m/uL Hgb 10.1 L (11.4-16.0) gm/dL Hct 32.3 L (34.0-46.0) % RDW 17.9 H (11.5-15.5) % Eosinophils # 0.8 H (0-0.7) k/uL Sodium 136 L (137-145) mmol/L Chloride 95 L (98-107) mmol/L Carbon Dioxide 31 H (22-30) mmol/L BUN 19 H (7-17) mg/dL POC Glucose (mg/dL) 110 H (75-99) mg/dL Delta Bilirubin 0.3 H (0.0-0.2) mg/dL Total Protein 4.7 L (6.3-8.2) g/dL Albumin 2.6 L (3.5-5.0) g/dL 09/22/17 Range/Units 11:10 RBC (3.80-5.40) m/uL Hgb (11.4-16.0) gm/dL Hct (34.0-46.0) % RDW (11.5-15.5) % Eosinophils # (0-0.7) k/uL Sodium (137-145) mmol/L Chloride (98-107) mmol/L Carbon Dioxide (22-30) mmol/L BUN (7-17) mg/dL POC Glucose (mg/dL) 131 H (75-99) mg/dL Delta Bilirubin (0.0-0.2) mg/dL Total Protein (6.3-8.2) g/dL Albumin (3.5-5.0) g/dL Assessment and Plan Plan: 1. Acute on chronic hypoxemic respiratory failure with hypercarbic respiratory failure secondary to pulmonary hypertension due to tubing connection not connected to oxygen at [facility], acute on chronic diastolic CHF, restrictiion in diaphragmatic excursion secondary to abdominal distention from chronic constipation, patient was given Solu-Medrol which would be discontinued, continue nebulized albuterol Atrovent, O2 at 6 L is a cannula 2. Acute abdominal pain recurrent acute on chronic, with choledocholithiasis in the distal common bile duct, as well as fecal impaction and urinary tract infection acute. Patient has liver cyst stable 3.5 x 4.1 cm No evidence of high-grade bowel obstruction Dr. Kellogg to see the patient for common bile duct stone, without any common bile duct dilatation. EGD was discussed and is agreeable, ERCP has been contemplated however in view off her pulmonary status, pulmonary has to clear her prior to ERCP however in view of the elevated rising troponins, any surgical procedures currently on hold 3. Recurrent dysphagia and early satiety without any aspirative events, history of GERD, and recurrent epigastric abdominal pain, EGD was discussed with the patient and is agreeable to this 4. Acute urinary tract infection with Proteus mirabilis growing on the most recent urine culture, Rocephin 1 g every 24 hours then can be transitioned to oral medication 5. Elevated troponin without NSTEMI with a rise in second troponin of 0.29, patient will be heparinized, and will be seen consultation by cardiology Previous echocardiogram performed July 2017 EF 55-60% right ventricular enlargement moderate,, continue on beta blockers, aspirin, 6. Obesity with hypoventilation syndrome and obstructive sleep apnea noncompliant with CPAP on the senior living, chronic hypercarbia, on O2 4 L maintenance in senior living, currently receiving 6 L nasal cannula. Daughter to bring and CPAP from the senior living. 7. Severe secondary pulmonary hypertension from obstructive sleep apnea, noncompliant to CPAP machine, 8. Fecal impaction with chronic constipation without any bowel obstruction, patient refused any colonoscopies in the past, refused any enemas, GoLYTELY for today, and this can be followed with medications titrated the next few days. Maintenance symproic for OIC along with other laxatives. She might benefit from Amitiza or linzess after her discharge. Advance diet 9. Acute on chronic diastolic heart failure. Continue Toprol-XL 25 mg orally once every day, continue patient on Lasix 40 bid, IV Lasix given in the ER, BNP is minimally elevated on 3300 no evidence of pleural effusion or pericardial effusion, continue to monitor input and output and daily weight Ventricle systolic pressure of 90 moderate to severe TR 10. Medical debility, bedbound . Physical therapy evaluation, discharge to [facility] once patient stabilizes 11. GERD. Continue Protonix 40 mg orally once every day. 12. Hypertension and hypertensive cardiovascular disease. Continue Toprol-XL 25 mg orally once every day, amlodipine 5 mg orally once every day. 13. Hyperlipidemia. Low-cholesterol diet. 14. Hypothyroidism. Continue Synthroid 125 g orally once every day. 15. Peripheral neuropathy. Continue gabapentin 200 mg orally twice every day. 16. Recurrent depression. Continue patient on Cymbalta 60 mg orally once every day and Lexapro 10 mg orally once every day. 17. Osteoarthritis with joint deformities including the right hand as well as bilateral lower extremity's. History of prolonged hospitalization including intubation with developmont of significant paraparesis of both lower extremities with significant deformity of the right wrist. 18. 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 Continue patient on Lexapro 20 mg orally once every day. On weaning doses of Seroquel 12.5 mg every day 19. ALLERGIC rhinitis. Continue patient on Claritin 10 mg orally once every day. 20. DVT prophylaxis. Currently on IV heparin 24 hours. 21. GI prophylaxis. Continue Protonix 40 mg orally once every day. Discharge plan: Return to [facility] on Tuesday Impression and plan of care have been directed as dictated by the signing physician. Mary Souza nurse practitioner acting as scribe for signing physician.
[2017-09-22 16:58] LABS: Glucose,Whole Blood 177 mg/dL (75-99)
[2017-09-22 19:59] LABS: Glucose,Whole Blood 94 mg/dL (75-99)
[2017-09-22] MEDS: POLYETHYLENE GLYCOL 3350 17 GM POWD.PACK PO SCH (21:12)
[2017-09-22] MEDS: QUEtiapine 25 MG TAB PO SCH (21:13)
[2017-09-22 22:36] VITALS: RESP 17
[2017-09-23] MEDS: LEVOTHYROXINE 125 MCG TAB PO SCH (06:13)
[2017-09-23] MEDS: PANTOPRAZOLE 40 MG TABLET PO SCH (06:13)
[2017-09-23 07:15] LABS: Glucose,Whole Blood 102 mg/dL (75-99)
[2017-09-23 07:50] VITALS: BP 111/57; TEMP 98
[2017-09-23 07:59] LABS: Anisocytosis Slight; Basophils % (A) 1 %; Eosinophils # (A) 0.9 k/uL (0-0.7); Eosinophils % (A) 10 %; HCT 33.5 % (34.0-46.0); HGB 10.3 gm/dL (11.4-16.0); Hypochromasia Marked; Lymphocytes # (A) 1.5 k/uL (1.0-4.8); Lymphocytes % (A) 16 %; MCH 26.7 pg (25.0-35.0); MCHC 30.7 g/dL (31.0-37.0); MCV 86.9 fL (80.0-100.0); Mean Platelet Volume 7.4; Monocytes # (A) 0.7 k/uL (0-1.0); Monocytes % (A) 7 %; Neutrophils # (A) 5.8 k/uL (1.3-7.7); Neutrophils % (A) 63 %; Platelet Count 405 k/uL (150-450); Poikilocytosis Moderate; RBC 3.86 m/uL (3.80-5.40); RDW 17.8 % (11.5-15.5); WBC 9.2 k/uL (3.8-10.6)
[2017-09-23 08:01] LABS: Albumin 2.5 g/dL (3.5-5.0); Calcium 8.7 mg/dL (8.4-10.2); Potassium 3.9 mmol/L (3.5-5.1); Total Bilirubin 0.3 mg/dL (0.2-1.3); Total Protein 4.7 g/dL (6.3-8.2)
[2017-09-23] MEDS: IPRATROPIUM-ALBUTEROL 3 ML NEB INHALATION SCH ×2 (08:21→11:59)
[2017-09-23] MEDS: BUDESONIDE 1 MG/2 ML NEBU INHALATION SCH (08:22)
[2017-09-23 08:44] LABS: Polychromasia Present
[2017-09-23] MEDS: HYDROcodone/APAP 7.5-325MG 1 EACH TAB PO SCH (08:47)
[2017-09-23] MEDS: ALPRAZolam 0.25 MG TAB PO PRN (08:47)
[2017-09-23] MEDS: LORATADINE 10 MG TAB PO SCH (08:48)
[2017-09-23] MEDS: SPIRONOLACTONE 25 MG TAB PO SCH (08:48)
[2017-09-23] MEDS: acetaZOLAMIDE 250 MG TAB PO SCH (08:48)
[2017-09-23] MEDS: FAMOTIDINE 20 MG TAB PO SCH (08:48)
[2017-09-23] MEDS: METOPROLOL SUCCINATE (ER) 50 MG TAB.ER.24H PO SCH (08:48)
[2017-09-23] MEDS: TOPIRAMATE 25 MG TAB PO SCH (08:49)
[2017-09-23] MEDS: DULoxetine HCL 60 MG CAPSULE.DR PO SCH (08:49)
[2017-09-23] MEDS: GABAPENTIN 100 MG CAP PO SCH (08:49)
[2017-09-23] MEDS: ASPIRIN 81 MG PO SCH (08:49)
[2017-09-23] MEDS: FUROSEMIDE 40 MG TAB PO SCH (08:49)
[2017-09-23] MEDS: ESCITALOPRAM 20 MG TAB PO SCH (08:50)
[2017-09-23] MEDS: CHOLECALCIFEROL 1,000 UNIT TAB PO SCH (08:50)
[2017-09-23] MEDS: cefTRIAXone IN SWFI 1,000 MG/10 ML SYRINGE IVP SCH (08:50)
[2017-09-23] MEDS: INSULIN ASPART 100 UNIT/ML 1 ML 10 ML VIAL SQ SCH ×2 (08:57→13:36)
--- NOTE | 2017-09-23 10:22 | P.DS ---
Providers Date of admission: 09/20/17 06:42 Expected date of discharge: 09/23/17 Attending physician: Gracia Elizabeth Consults: 09/20/17 06:42 Consult Physician Routine Consulting Provider: Martha Kellogg Consult Reason/Comments: abdominal pain Do you want consulting provider notified?: Yes 09/20/17 07:31 Consult Physician Routine Consulting Provider: Celena Arita Consult Reason/Comments: your patient. CHF exacerbation Do you want consulting provider notified?: Yes 09/20/17 15:00 Consult Physician Routine Consulting Provider: Vincent West Consult Reason/Comments: enelated troponin shortness fo breath Do you want consulting provider notified?: Yes Primary care physician: Graciamily Elizabeth [place] [facility] Course: 77-year-old female patient of my patient currently residing at [facility] with past medical history COPD on 4 L Oxygen , hypertension, obstructive sleep apnea refusing BiPAP/CPAP nighttime, chronic pain, gastric esophageal reflux disease, hypothyroidism, ALLERGIC rhinitis, osteoarthritis, idiopathic peripheral autonomic neuropathy, chronic urinary tract infections, vitamin D deficiency, morbid obesity, bed bound for the past 13 years, h/o prolonged intubation leading to tracheostomy which was finally removed, has been bedbound ever seen. She was recently admitted from her facility secondary to pulmonary hypertension COPD exacerbation, required 10 L off O2 during the last admission, along with diuretics, and tapering IV steroids. She was discharged to [facility] on 4 L nasal cannula, and is stable. Patient was transferred to the emergency room secondary to increasing shortness of breath, no significant cough patient mentions that it's difficult to breathe, and has had abdominal pain off and on with chronic constipation for several years now. She also has early satiety, no appetite, weight loss of approximately 40 pounds in 6 months, during the last admission patient was seen by general surgery who recommended colonoscopy for the problem. Multiple recommendations were made for colonoscopy and the patient has refused. She has a recent urinalysis that was growing Proteus mirabilis significant for a urinary tract tract infection and was started on ampicillin 500 mg 4 times a day at [facility] started 2 days ago. Patient denies any fever but has low- grade temp of 99.1 and double basic count of 13 no melena no hematuria She also has dysphagia, we got an outpatient appointment for an EGD In the emergency room with her abdominal pain and difficulty breathing, she was noted to have on CT imaging correlation for chledocholithiasis in the distal common bile duct, prominent stool in the rectum with fecal impaction, diffuse bladder wall thickening constipation for cystitis. Lipase normal on 41 creatinine of 0.9 AST off 50 alkaline phosphatase of [address] Kellogg has been consulted and Dr. Arita and has been consulted. Troponins were also noted to be slightly elevated on admission her first set troponin was 0.092 and subsequent troponin was 0.295 patient was started on heparin drip, and consult was made with cardiology 09/21: Patient has been seen by Dr. Kellogg and will proceed with ERCP if pulmonary clearance is obtained from Dr. Arita not necessary at this point. POA gave consent.. At this time, conservative measures. Patient is on full liquids. Patient has been seen by Dr. Arita and continued on oxygen, DuoNeb treatments and Rocephin which is for UTI. Daughter to bring in CPAP from the residential. Cardiology has evaluated the patient and ruled out acute coronary syndrome.. Potassium will be replaced. White count is normal at 10.1. TSH 0.922. Repeat liver function tests are within normal limits and total bilirubin 0.3. Patient has started taking GoLYTELYthis morning. She has not had a bowel movement since admission. IV fluids changed to saline lock. Steroids were discontinued yesterday. She denies any wheezing. 09/22: Patient has had multiple bowel movements since yesterday after receiving GoLYTELY. We will plan to advance her diet. She states she is feeling a little better and appetite is improving. Plan for discharge back to [facility] tomorrow. 09/23: Diet. Abdominal pain is improved and appetite is improved. Patient is noted to have a small decubitus ulcers on the posterior right thigh that are scattered 0.2-1 cm in size on the buttocks on left sacrum area there is a 1 cm decubitus with redness and linear excoriations across the lower back from her diaper. Patient will be started on Amitiza at the residential. Local wound care with delfino until seen by Dr. Huitron. She is continued on ampicillin. Patient will be discharged back to [facility] today in stable condition. Discharge diagnoses: 1. Acute on chronic hypoxemic and hypercapnic respiratory failure secondary to pulmonary hypertension due to tubing connection not connected to oxygen at [facility], acute on chronic diastolic CHF, restrictiion in diaphragmatic excursion secondary to abdominal distention from chronic constipation 2. Acute abdominal pain recurrent acute on chronic, with choledocholithiasis in the distal common bile duct, as well as fecal impaction and urinary tract infection acute. Patient has liver cyst stable 3.5 x 4.1 cm No evidence of high-grade bowel obstruction 3. Recurrent dysphagia and early satiety without any aspirative events, history of GERD 4. Acute Proteus urinary tract infection 5. Elevated troponin without acute coronary syndrome 6. Obesity with hypoventilation syndrome and obstructive sleep apnea noncompliant with CPAP at residential, chronic hypercarbia, on O2 4 L maintenance with chronic hypercapnic respiratory failure 7. Severe secondary pulmonary hypertension from obstructive sleep apnea, 8. Fecal impaction with chronic constipation without any bowel obstruction 9. Acute on chronic diastolic heart failure. 10. Medical debility, bedbound 11. GERD. 12. Hypertension and hypertensive cardiovascular disease. 13. Hyperlipidemia. 14. Hypothyroidism. 15. Peripheral neuropathy. 16. Recurrent depression. 17. Osteoarthritis with joint deformities including the right hand as well as bilateral lower extremities. 18. 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 19. ALLERGIC rhinitis. 20. Decubitus ulcers to the posterior thigh and sacrum. See nursing documentation for details. Discharge plan: Return to [facility] Impression and plan of care have been directed as dictated by the signing physician. Mary Souza nurse practitioner acting as scribe for signing physician. Patient Condition at Discharge: Good Plan - Discharge Summary Discharge Rx Participant: No New Discharge Prescriptions: New Metoprolol Succinate (ER) [Toprol XL] 50 mg PO DAILY tab.er.24h Spironolactone [Aldactone] 25 mg PO DAILY tab Lubiprostone [Amitiza] 24 mcg PO DAILY #30 cap Continue Aspirin 81 mg PO BID Sodium Chloride [Saline Mist] 2 spray NASAL DAILY PRN PRN Reason: DRYNESS Ipratropium-Albuterol Nebulize [Duoneb 0.5 mg-3 mg/3 ml Soln] 3 ml INHALATION RT-Q4H PRN PRN Reason: BRONCHODILATOR Topiramate [Topamax] 50 mg PO BID Gabapentin [Neurontin] 200 mg PO BID DULoxetine HCL [Cymbalta] 60 mg PO BID Cholecalciferol [Vitamin D3] 2,000 unit PO DAILY Omeprazole [PriLOSEC] 20 mg PO DAILY@0600 Loratadine [Claritin] 10 mg PO DAILY Lidocaine 5% Patch [Lidoderm 5% Patch] 1 patch TOPICAL Q12H PRN MDD 2 patches PRN Reason: joint pain Levothyroxine Sodium [Synthroid] 125 mcg PO DAILY@0600 Sennosides-Docusate Sodium [Senokot-S] 2 tab PO BID QUEtiapine [SEROquel] 12.5 mg PO HS Naldemedine Tosylate [Symproic] 0.2 mg PO DAILY Furosemide [Lasix] 40 mg PO BID@0900,1600 tab Lidocaine Viscous 2% [Xylocaine Viscous] 5 ml MUCOUS MEM Q4H PRN ml PRN Reason: Sore Throat acetaZOLAMIDE [Diamox] 250 mg PO DAILY Budesonide [Pulmicort] 1 mg INHALATION RT-BID Melatonin 10 mg PO HS Ipratropium-Albuterol Nebulize [Duoneb 0.5 mg-3 mg/3 ml Soln] 3 ml INHALATION RT-QID ampul.neb Polyethylene Glycol 3350 [Miralax] 17 gm PO HS powd.pack Vitamins A and D [Vitamin A and D] 1 applic TOPICAL BID Bisacodyl [Dulcolax] 10 mg RECTAL DAILY PRN PRN Reason: Constipation Mag Hydrox/Al Hydrox/Simeth [Maalox] 30 ml PO Q6H Lactose-Reduced Food [Ensure Plus] 120 ml PO QID Ampicillin Trihydrate 500 mg PO Q6H Escitalopram [Lexapro] 20 mg PO DAILY Bacillus Coagulans [Digestive Advantage] 1 cap PO DAILY Triad 1 applic TOPICAL BID ALPRAZolam [Xanax] 0.25 mg PO TID #90 tab Hydrocodone/Acetaminophen [Hobart 7.5-325] 1 tab PO Q6HR PRN #60 tab PRN Reason: Pain Hydrocodone/Acetaminophen [Hobart 7.5-325] 1 tab PO BID #60 tab Discontinued Metoprolol Succinate [Toprol XL] 25 mg PO DAILY Discharge Medication List Aspirin 81 mg PO BID 01/12/17 [History] Cholecalciferol [Vitamin D3] 2,000 unit PO DAILY 01/12/17 [History] DULoxetine HCL [Cymbalta] 60 mg PO BID 01/12/17 [History] Gabapentin [Neurontin] 200 mg PO BID 01/12/17 [History] Ipratropium-Albuterol Nebulize [Duoneb 0.5 mg-3 mg/3 ml Soln] 3 ml INHALATION RT -Q4H PRN 01/12/17 [History] Levothyroxine Sodium [Synthroid] 125 mcg PO DAILY@0600 01/12/17 [History] Lidocaine 5% Patch [Lidoderm 5% Patch] 1 patch TOPICAL Q12H PRN MDD 2 patches [History] Loratadine [Claritin] 10 mg PO DAILY 01/12/17 [History] Omeprazole [PriLOSEC] 20 mg PO DAILY@0600 01/12/17 [History] Sodium Chloride [Saline Mist] 2 spray NASAL DAILY PRN 01/12/17 [History] Topiramate [Topamax] 50 mg PO BID 01/12/17 [History] Naldemedine Tosylate [Symproic] 0.2 mg PO DAILY 07/21/17 [History] QUEtiapine [SEROquel] 12.5 mg PO HS 07/21/17 [History] Sennosides-Docusate Sodium [Senokot-S] 2 tab PO BID 07/21/17 [History] Furosemide [Lasix] 40 mg PO BID@0900,1600 tab 07/27/17 [Rx] Lidocaine Viscous 2% [Xylocaine Viscous] 5 ml MUCOUS MEM Q4H PRN ml 07/27/17 [ Rx] Budesonide [Pulmicort] 1 mg INHALATION RT-BID 08/03/17 [History] Melatonin 10 mg PO HS 08/03/17 [History] acetaZOLAMIDE [Diamox] 250 mg PO DAILY 08/03/17 [History] Ipratropium-Albuterol Nebulize [Duoneb 0.5 mg-3 mg/3 ml Soln] 3 ml INHALATION RT -QID ampul.neb 08/09/17 [Rx] Polyethylene Glycol 3350 [Miralax] 17 gm PO HS powd.pack 08/09/17 [Rx] Ampicillin Trihydrate 500 mg PO Q6H 09/20/17 [History] Bacillus Coagulans [Digestive Advantage] 1 cap PO DAILY 09/20/17 [History] Bisacodyl [Dulcolax] 10 mg RECTAL DAILY PRN 09/20/17 [History] Escitalopram [Lexapro] 20 mg PO DAILY 09/20/17 [History] Lactose-Reduced Food [Ensure Plus] 120 ml PO QID 09/20/17 [History] Mag Hydrox/Al Hydrox/Simeth [Maalox] 30 ml PO Q6H 09/20/17 [History] Triad 1 applic TOPICAL BID 09/20/17 [History] Vitamins A and D [Vitamin A and D] 1 applic TOPICAL BID 09/20/17 [History] ALPRAZolam [Xanax] 0.25 mg PO TID #90 tab 09/22/17 [Rx] Hydrocodone/Acetaminophen [Hobart 7.5-325] 1 tab PO BID #60 tab 09/22/17 [Rx] Hydrocodone/Acetaminophen [Hobart 7.5-325] 1 tab PO Q6HR PRN #60 tab 09/22/17 [Rx ] Metoprolol Succinate (ER) [Toprol XL] 50 mg PO DAILY tab.er.24h 09/22/17 [Rx] Spironolactone [Aldactone] 25 mg PO DAILY tab 09/22/17 [Rx] Lubiprostone [Amitiza] 24 mcg PO DAILY #30 cap 09/23/17 [Rx] Follow up Appointment(s)/Referral(s): Gracia Elizabeth MD [Primary Care Provider] - 1 Week Christopher Russ DO [Doctor of Osteopathic Medicine] - 1 Week (at [facility] Activity/Diet/Wound Care/Special Instructions: Dr Huitron for wound care buttocks. Air mattress. Medihoney 2 wounds until seen by Dr. Huitron. Discharge Disposition: TRANSFER TO SNF/ECF
[2017-09-23 11:03] LABS: Glucose,Whole Blood 101 mg/dL (75-99)
[2017-09-23 11:10] VITALS: BMI 27.4
[2017-09-23] MEDS: NALDEMEDINE TOSYLATE PO SCH (13:35)
[2017-09-23] MEDS: SENNOSIDES-DOCUSATE SODIUM 1 EACH TAB PO SCH (13:36)
[2017-09-23 14:45] VITALS: PULSE 61
== END 2017-09-23 15:45 | DRG 280 ==
LOC: EC 02:08 → 6SEL 06:42 → 5MS5E 09-21 14:43
PROVIDERS: ADMIT Family Medicine; ATTEND Family Medicine
DX: I11.0 Hypertensive heart disease with heart failure (principal); J96.21 Acute and chronic respiratory failure with hypoxia; I21.A1 Myocardial infarction type 2; J96.22 Acute and chronic respiratory failure with hypercapnia; E66.2 Morbid (severe) obesity with alveolar hypoventilation; F33.9 Major depressive disorder, recurrent, unspecified; I50.33 Acute on chronic diastolic (congestive) heart failure; K21.9 Gastro-esophageal reflux disease without esophagitis; J44.9 Chronic obstructive pulmonary disease, unspecified; I27.29 Other secondary pulmonary hypertension; K80.70 Calculus of gallbladder and bile duct without cholecystitis without obstruction; K56.41 Fecal impaction; R13.10 Dysphagia, unspecified; R68.81 Early satiety; N30.90 Cystitis, unspecified without hematuria; R77.8 Other specified abnormalities of plasma proteins; E78.5 Hyperlipidemia, unspecified; E03.9 Hypothyroidism, unspecified; G60.9 Hereditary and idiopathic neuropathy, unspecified; M19.90 Unspecified osteoarthritis, unspecified site; F41.1 Generalized anxiety disorder; G89.29 Other chronic pain; J30.9 Allergic rhinitis, unspecified; G90.09 Other idiopathic peripheral autonomic neuropathy; B96.4 Proteus (mirabilis) (morganii) as the cause of diseases classified elsewhere; R63.0 Anorexia; K76.89 Other specified diseases of liver; R01.1 Cardiac murmur, unspecified; E55.9 Vitamin D deficiency, unspecified; L89.159 Pressure ulcer of sacral region, unspecified stage; I48.2 Chronic atrial fibrillation; L89.309 Pressure ulcer of unspecified buttock, unspecified stage; F03.90 Unspecified dementia, unspecified severity, without behavioral disturbance, psychotic disturbance, mood disturbance, and anxiety; Z96.642 Presence of left artificial hip joint; D64.9 Anemia, unspecified; R00.0 Tachycardia, unspecified; I07.1 Rheumatic tricuspid insufficiency; Z88.8 Allergy status to other drugs, medicaments and biological substances; Z79.891 Long term (current) use of opiate analgesic; Z79.890 Hormone replacement therapy; Z68.27 Body mass index [BMI] 27.0-27.9, adult; Z79.82 Long term (current) use of aspirin; Z74.01 Bed confinement status; Z79.899 Other long term (current) drug therapy; Z91.19 Patient's noncompliance with other medical treatment and regimen; Z82.49 Family history of ischemic heart disease and other diseases of the circulatory system; Z82.3 Family history of stroke; Z87.891 Personal history of nicotine dependence; Z90.49 Acquired absence of other specified parts of digestive tract; Z87.01 Personal history of pneumonia (recurrent); Z99.81 Dependence on supplemental oxygen; Z87.440 Personal history of urinary (tract) infections
CPT/HCPCS: 36415; 71045; 74176; 80053; 81001; 82150; 82248; 83036; 83690; 83735; 83880; 84443; 84484; 85025; 85610; 85730; 93005; 94640; 94760

== ENCOUNTER → 2017-12-02 | Outpatient (CLI) | payer MEDICARE, OTHER ==
--- NOTE | 2017-12-05 10:23 | MR ---
EXAMINATION TYPE: MR abdomen wo/w con DATE OF EXAM: 12/02/2017 COMPARISON: Recent CT abdomen and pelvis. HISTORY: generalized abd pain CONTRAST: Standard multiplanar, multisequence MRI departmental protocol utilizing 7.5 mL intravenous Gadavist g adolinium contrast. FINDINGS: There is significant motion on the T2-weighted axial images limiting evaluation. The gallbladder appears to be present with numerous gallstones are seen within the gallbladder lumen layering dependently. No pericholecystic fluid is seen or significant gallbladder wall thickening, h owever the common bile duct is dilated up to 1.1 cm and there are at least 2 calculi within the dista l common bile duct approximately 2 mm proximal to the ampulla of Vater representing choledocholithias is. This results in mild intrahepatic biliary ductal dilatation. The left hepatic lobe is presumed to be significantly atrophy rather than surgically absent although the latter is possible. No signal dr opout is seen within the hepatic parenchyma on out of phase imaging to indicate hepatic steatosis. The previously seen diffuse gastric thickening has improved due to better distention on today's exami nation. Very tiny 1-2 mm hyperintense cortical lesions are seen within both kidneys, too small to acc urately characterize. Otherwise the kidneys enhance homogeneously without hydronephrosis. Nonenhancin g probable granulomas are seen within the splenic parenchyma. The pancreas is atrophic with ductal pr ominence however no dilatation is seen. The adrenal glands are overall symmetric without focal measur able nodule. The abdominal aorta and its visualized portions of normal caliber. A trace left pleural effusion and left basilar atelectasis are seen. No abnormal adenopathy is seen within the abdomen. Ve ry trace pericardial fluid is also noted. No bowel dilatation. IMPRESSION: 1. Confirmation of choledocholithiasis (at least 2 impacted gallstones are seen within the distal com mon bile duct just proximal to the ampulla of Vater) resulting in common bile duct dilatation up to 1 .1 cm and mild intrahepatic biliary ductal dilatation. Cholelithiasis is also seen without MR evidenc e of acute cholecystitis. 2. Trace left pleural effusion and associated left basilar atelectasis. A Yellow level critical message alert has been initiated for Gracia Elizabeth MD via the [employer] Critical Results System on 12/05/2017 10:21 AM. This message alert has been sent to Gracia Elizabeth MD via the preferences provided by the clinician for the receipt of Radiology Critical Findings. [facility] age ID [id number].
== END | disposition home or self-care (01) ==
LOC: RADMRIMAIN 11:59
PROVIDERS: ATTEND Family Medicine
DX: K80.70 Calculus of gallbladder and bile duct without cholecystitis without obstruction (principal)
CPT/HCPCS: 74183; A9581

== ENCOUNTER 2018-01-14 14:55 | Inpatient (IN) | payer MEDICARE, OTHER ==
[2018-01-14] MEDS ORDERED: IPRATROPIUM-ALBUTEROL 3 ML NEB INHALATION STA (15:09)
--- NOTE | 2018-01-14 15:14 | ED ---
General Adult HPI - General Stated complaint: ZAIRA Time Seen by Provider: 01/14/18 14:55 Source: RN notes reviewed - History of Present Illness Initial comments: This is a 77-year-old female who presents from a [facility] with chronic respiratory issues. Patient comes in today because she still oxygenating and had a put her on more oxygen and she still remained in the 70s. Patient denies any chest pain or palpitations. Patient has an extremely poor historian. There is no history of any fevers. There's no history of any cough. There is no family or staff member with the patient. Patient denies any abdominal pain. Patient denies any nausea vomiting diarrhea. Patient states that even sitting here she is still short of breath but denies chest pain. - Related Data Home Medications Medication Instructions Recorded Confirmed Aspirin 81 mg PO BID 01/12/17 01/14/18 Cholecalciferol [Vitamin D3] 2,000 unit PO DAILY 01/12/17 01/14/18 DULoxetine HCL [Cymbalta] 60 mg PO BID 01/12/17 01/14/18 Gabapentin [Neurontin] 200 mg PO BID 01/12/17 01/14/18 Ipratropium-Albuterol Nebulize 3 ml INHALATION RT-Q4H PRN 01/12/17 01/14/18 [Duoneb 0.5 mg-3 mg/3 ml Soln] Levothyroxine Sodium [Synthroid] 125 mcg PO DAILY@0600 01/12/17 01/14/18 Lidocaine 5% Patch [Lidoderm 5% 1 patch TOPICAL Q12H PRN MDD 2 01/12/17 01/14/18 Patch] patches Loratadine [Claritin] 10 mg PO DAILY 01/12/17 01/14/18 Omeprazole [PriLOSEC] 20 mg PO DAILY@0600 01/12/17 01/14/18 Sodium Chloride [Saline Mist] 2 spray NASAL Q12H PRN 01/12/17 01/14/18 Topiramate [Topamax] 50 mg PO BID 01/12/17 01/14/18 QUEtiapine [SEROquel] 12.5 mg PO HS 07/21/17 01/14/18 Sennosides-Docusate Sodium 2 tab PO DIRECTED 07/21/17 01/14/18 [Senokot-S] Budesonide [Pulmicort] 1 mg INHALATION RT-BID 08/03/17 01/14/18 Melatonin 10 mg PO HS 08/03/17 01/14/18 acetaZOLAMIDE [Diamox] 250 mg PO DAILY 08/03/17 01/14/18 Bacillus Coagulans [Digestive 1 cap PO DAILY 09/20/17 01/14/18 Advantage] Bisacodyl [Dulcolax] 10 mg RECTAL DAILY PRN 09/20/17 01/14/18 Escitalopram [Lexapro] 20 mg PO DAILY 09/20/17 01/14/18 Lactose-Reduced Food [Ensure Plus] 237 ml PO QID@,,,09/20/17 01/14/18 Mag Hydrox/Al Hydrox/Simeth 30 ml PO Q4H PRN 09/20/17 01/14/18 [Maalox] Vitamins A and D [Vitamin A and D] 1 applic TOPICAL BID 09/20/17 01/14/18 ALPRAZolam [Xanax] 0.25 mg PO TID@,,01/14/18 01/14/18 Acetaminophen Tab [Tylenol Tab] 650 mg PO Q4H PRN 01/14/18 01/14/18 Allopurinol [Zyloprim] 600 mg PO DAILY 01/14/18 01/14/18 Benzocaine [place] [Hurricaine [place]] 1 applic TOPICAL DAILY PRN 01/14/18 01/14/18 Benzocaine [place] [Hurricaine [place]] 1 applic TOPICAL Q12H 01/14/18 01/14/18 Colchicine 0.6 mg PO DAILY 01/14/18 01/14/18 Collagenase [Santyl] 1 applic TOPICAL DAILY PRN 01/14/18 01/14/18 Collagenase [Santyl] 1 applic TOPICAL HS 01/14/18 01/14/18 Furosemide [Lasix] 40 mg PO BID@06,12 01/14/18 01/14/18 Ipratropium-Albuterol Nebulize 3 ml INHALATION RT-QID@,,,01/14/1801/14 [Duoneb 0.5 mg-3 mg/3 ml Soln] Lidocaine Viscous 2% [Xylocaine 0.3 ml MUCOUS MEM Q4H PRN 01/14/18 01/14/18 Viscous] Magnesium Hydroxide [Milk of 2,400 mg PO DAILY PRN 01/14/18 01/14/18 Magnesia] Polyethylene Glycol 3350 [Miralax] 17 gm PO DAILY PRN 01/14/18 01/14/18 Polyethylene Glycol 3350 [Miralax] 17 gm PO SIDUTHFRSA@2100 01/14/18 01/14/18 Vits A and D/White Pet/Lanolin [A 1 applic TOPICAL DAILY PRN 01/14/18 01/14/18 and D Ointment] Previous Rx's Medication Instructions Recorded Hydrocodone/Acetaminophen [[place] 1 tab PO BID #60 tab 09/22/17 7.5-325] Hydrocodone/Acetaminophen [[place] 1 tab PO Q6HR PRN #60 tab 09/22/17 7.5-325] Spironolactone [Aldactone] 25 mg PO DAILY tab 09/22/17 Lubiprostone [Amitiza] 24 mcg PO DAILY #30 cap 09/23/17 Allergies Allergy/AdvReac Type Severity Reaction Status Date / Time metronidazole [From Flagyl] Allergy Unknown Verified 01/14/18 15:03 Review of Systems ROS Statement: Those systems with pertinent positive or pertinent negative responses have been documented in the HPI. ROS Other: All systems not noted in ROS Statement are negative. Past Medical History Past Medical History: Heart Failure, COPD, GERD/Reflux, Hyperlipidemia, Hypertension, Musculoskeletal Disorder, Neurologic Disorder, Osteoarthritis (OA) , Pneumonia, Sleep Apnea/CPAP/BIPAP, Thyroid Disorder Additional Past Medical History / Comment(s): Respiratory failure with O2 at 6L/ [place] ATC, pulmonary HTN, bilateral pneumonia, tracheobronchitis, chronic UTIs, urosepsis with prolonged intubation and has been bed bound since (15yrs), past sacral decubitus-skin reddened now per [place] but not open, recent fecal impaction , PALMIRA with Bipap use at times, chronic pain, diffuse abdominal pain for past few months, idiopathic peripheral autonomic neuropathy, arthritis in multiple joints, 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 History of Any Multi-Drug Resistant Organisms: VRE Date of last positivie culture/infection: 01/12/17 MDRO Source:: Urine Past Surgical History: Appendectomy, Joint Replacement, Orthopedic Surgery Additional Past Surgical History / Comment(s): PEG tube and trach placement with removals, left hip arthroplasty in 1995, ankle fracture with ORIF/hardware. Past Anesthesia/Blood Transfusion Reactions: No Reported Reaction Smoking Status: Former smoker - Past Family History Father Family Medical History: Myocardial Infarction (MA) Additional Family Medical History / Comment(s): at age 58 from MA and had a fall with head injury. Mother Family Medical History: CVA/TIA Additional Family Medical History / Comment(s): Mother at age 70 from a CVA. Brother(s) Family Medical History: No Reported History Additional Family Medical History / Comment(s): Patient has one brother with no major medical problems. Sister(s) Family Medical History: No Reported History Additional Family Medical History / Comment(s): Patient has one sister with no major medical problems. Daughter(s) Family Medical History: No Reported History Additional Family Medical History / Comment(s): Patient has 2 daughters no major medical problems. General Exam - General Exam Comments Initial Comments: GENERAL: Patient is well-developed and well-nourished. Patient is nontoxic and well- hydrated and is in mild distress. ENT: Neck is soft and supple. No significant lymphadenopathy is noted. Oropharynx is clear. Moist mucous membranes. EYES: The sclera were anicteric and conjunctiva were pink and moist. Extraocular movements were intact and pupils were equal round and reactive to light. Eyelids were unremarkable. PULMONARY: She has diminished breath sounds in the left base CARDIOVASCULAR: There is a regular rate and rhythm without any murmurs gallops or rubs. ABDOMEN: Soft and nontender with normal bowel sounds. No palpable organomegaly was noted. There is no palpable pulsatile mass. SKIN: Skin is clear with no lesions or rashes and otherwise unremarkable. NEUROLOGIC: Patient is alert and oriented 2. Cranial nerves II through XII are grossly intact. MUSCULOSKELETAL: Patient's unable to move her legs. LYMPHATICS: No significant lymphadenopathy is noted PSYCHIATRIC: Normal psychiatric evaluation. Course Vital Signs 01/14/18 01/14/18 01/14/18 15:00 15:42 16:03 Temperature 97.5 F L Pulse Rate 105 H 101 H Respiratory 20 Rate Blood Pressure 149/75 O2 Sat by Pulse 81 L 87 L Oximetry 01/14/18 01/14/18 16:12 16:20 Temperature Pulse Rate 104 H 114 H Respiratory 20 Rate Blood Pressure 166/63 O2 Sat by Pulse 88 L Oximetry Medical Decision Making - Medical Decision Making EKG shows sinus tachycardia at 109 bpm SC interval is 166 dresses 90 QT interval 356 QTC is 479. Patient's EKG shows some T-wave inversions in leads 1 and aVL which was seen in the previous EKG. Patient's chest x-ray shows no acute abnormality there is some cardiomegaly and small pleural effusions. I spoke with Dr. Lopez and she accepted the patient I wrote admitting orders - Lab Data Result diagrams: 01/14/18 15:30 01/14/18 15:30 Lab Results 01/14/18 01/14/18 01/14/18 Range/Units 15:30 15:30 15:30 WBC 10.2 (3.8-10.6) k/uL RBC 5.02 (3.80-5.40) m/uL Hgb 11.6 (11.4-16.0) gm/dL Hct 41.2 (34.0-46.0) % MCV 82.0 (80.0-100.0) fL MCH 23.2 L (25.0-35.0) pg MCHC 28.3 L (31.0-37.0) g/dL RDW 20.9 H (11.5-15.5) % Plt Count 325 (150-450) k/uL Neutrophils % 87 % Lymphocytes % 6 % Monocytes % 5 % Eosinophils % 1 % Basophils % 0 % Neutrophils # 8.8 H (1.3-7.7) k/uL Lymphocytes # 0.6 L (1.0-4.8) k/uL Monocytes # 0.5 (0-1.0) k/uL Eosinophils # 0.1 (0-0.7) k/uL Basophils # 0.1 (0-0.2) k/uL Hypochromasia Marked Anisocytosis Moderate Microcytosis Slight PT (9.0-12.0) sec INR (<1.2) APTT (22.0-30.0) sec D-Dimer (<0.60) mg/L FEU Sodium 133 L (137-145) mmol/L Potassium 3.5 (3.5-5.1) mmol/L Chloride 90 L (98-107) mmol/L Carbon Dioxide 31 H (22-30) mmol/L Anion Gap 12 mmol/L BUN 29 H (7-17) mg/dL Creatinine 1.00 (0.52-1.04) mg/dL Est GFR (CKD-EPI)AfAm 63 (>60 ml/min/1.73 sqM) Est GFR (CKD-EPI)NonAf 55 (>60 ml/min/1.73 sqM) Glucose 122 H (74-99) mg/dL Plasma Lactic Acid Harry (0.7-2.0) mmol/L Calcium 9.3 (8.4-10.2) mg/dL Magnesium 2.1 (1.6-2.3) mg/dL Total Bilirubin 0.6 (0.2-1.3) mg/dL AST 23 (14-36) U/L ALT 23 (9-52) U/L Alkaline Phosphatase 65 (38-126) U/L Total Creatine Kinase <20 L (30-135) U/L CK-MB (CK-2) 1.1 (0.0-2.4) ng/mL CK-MB (CK-2) Rel Index Troponin I 0.046 H* (0.000-0.034) ng/mL NT-Pro-B Natriuret Pep pg/mL Total Protein 6.2 L (6.3-8.2) g/dL Albumin 3.3 L (3.5-5.0) g/dL 01/14/18 01/14/18 01/14/18 Range/Units 15:30 15:30 15:30 WBC (3.8-10.6) k/uL RBC (3.80-5.40) m/uL Hgb (11.4-16.0) gm/dL Hct (34.0-46.0) % MCV (80.0-100.0) fL MCH (25.0-35.0) pg MCHC (31.0-37.0) g/dL RDW (11.5-15.5) % Plt Count (150-450) k/uL Neutrophils % % Lymphocytes % % Monocytes % % Eosinophils % % Basophils % % Neutrophils # (1.3-7.7) k/uL Lymphocytes # (1.0-4.8) k/uL Monocytes # (0-1.0) k/uL Eosinophils # (0-0.7) k/uL Basophils # (0-0.2) k/uL Hypochromasia Anisocytosis Microcytosis PT 10.3 (9.0-12.0) sec INR 1.1 (<1.2) APTT 25.9 (22.0-30.0) sec D-Dimer 0.35 (<0.60) mg/L FEU Sodium (137-145) mmol/L Potassium (3.5-5.1) mmol/L Chloride (98-107) mmol/L Carbon Dioxide (22-30) mmol/L Anion Gap mmol/L BUN (7-17) mg/dL Creatinine (0.52-1.04) mg/dL Est GFR (CKD-EPI)AfAm (>60 ml/min/1.73 sqM) Est GFR (CKD-EPI)NonAf (>60 ml/min/1.73 sqM) Glucose (74-99) mg/dL Plasma Lactic Acid Harry 1.5 (0.7-2.0) mmol/L Calcium (8.4-10.2) mg/dL Magnesium (1.6-2.3) mg/dL Total Bilirubin (0.2-1.3) mg/dL AST (14-36) U/L ALT (9-52) U/L Alkaline Phosphatase (38-126) U/L Total Creatine Kinase (30-135) U/L CK-MB (CK-2) (0.0-2.4) ng/mL CK-MB (CK-2) Rel Index Troponin I (0.000-0.034) ng/mL NT-Pro-B Natriuret Pep 38537 pg/mL Total Protein (6.3-8.2) g/dL Albumin (3.5-5.0) g/dL Disposition Clinical Impression: Hypoxia Disposition: ADMITTED IP TO THIS HOSP Is patient prescribed a controlled substance at d/c from ED?: No Referrals: Gracia Elizabeth MD [Primary Care Provider] - 1-2 days Time of Disposition: 16:47
[2018-01-14 15:46] LABS: Anisocytosis Moderate; Basophils # (A) 0.1 k/uL (0-0.2); Basophils % (A) 0 %; Eosinophils # (A) 0.1 k/uL (0-0.7); Eosinophils % (A) 1 %; HCT 41.2 % (34.0-46.0); HGB 11.6 gm/dL (11.4-16.0); Hypochromasia Marked; Lymphocytes # (A) 0.6 k/uL (1.0-4.8); Lymphocytes % (A) 6 %; MCH 23.2 pg (25.0-35.0); MCHC 28.3 g/dL (31.0-37.0); Mean Platelet Volume 6.9; Microcytosis Slight; Monocytes # (A) 0.5 k/uL (0-1.0); Monocytes % (A) 5 %; Neutrophils # (A) 8.8 k/uL (1.3-7.7); Neutrophils % (A) 87 %; Platelet Count 325 k/uL (150-450); RBC 5.02 m/uL (3.80-5.40); RDW 20.9 % (11.5-15.5); WBC 10.2 k/uL (3.8-10.6)
[2018-01-14 15:57] LABS: Albumin 3.3 g/dL (3.5-5.0); Calcium 9.3 mg/dL (8.4-10.2); Creatine Kinase <20 U/L (30-135); Magnesium 2.1 mg/dL (1.6-2.3); Potassium 3.5 mmol/L (3.5-5.1); Total Bilirubin 0.6 mg/dL (0.2-1.3); Total Protein 6.2 g/dL (6.3-8.2)
[2018-01-14 15:58] LABS: D-Dimer 0.35 mg/L FEU (<0.60); INR 1.1 (<1.2); Partial Thromboplastin Time 25.9 sec (22.0-30.0); Prothrombin Time 10.3 sec (9.0-12.0)
[2018-01-14 16:11] LABS: Creatine Kinase MB 1.1 ng/mL (0.0-2.4)
--- NOTE | 2018-01-14 16:13 | XR ---
EXAMINATION TYPE: XR chest 2V DATE OF EXAM: 01/14/2018 COMPARISON: 09/20/2017 HISTORY: 77-year-old female difficulty in breathing TECHNIQUE: AP and lateral views FINDINGS: Low lung volumes with crowded vascular markings. Mild cardiomegaly. Aorta within normal limits. Small right pleural effusion is noted. Upper and mid lungs appear clear. Severe degenerative changes at th e shoulders with large bony defects of the humeral heads. IMPRESSION: 1. Mild cardiomegaly. 2. Hypoventilatory changes. 3. Small right pleural effusion with adjacent atelectasis and or consolidation.
[2018-01-14 16:30] LABS: Troponin I 0.046 ng/mL (0.000-0.034)
[2018-01-14 16:43] LABS: ABG Base Excess 7.2 mmol/L; ABG HCO3 31 mmol/L (21-25); ABG Oxygen Saturation 59.7 % (94-97); ABG PCO2 47 mmHg (35-45); ABG PH 7.44 (7.35-7.45); ABG TCO2 33 mmol/L (19-24)
[2018-01-14] MEDS ORDERED: NITROGLYCERIN SL TABS 0.4 MG TAB SUBLINGUAL PRN (16:51)
[2018-01-14] MEDS ORDERED: FUROSEMIDE 10 MG/ML 4 ML VIAL IV STA (16:53)
[2018-01-14 16:55] LABS: ABG PO2 31 mmHg (83-108)
[2018-01-14 19:13] LABS: Glucose,Whole Blood 145 mg/dL (75-99)
[2018-01-14] MEDS ORDERED: NALOXONE 0.4 MG/ML 1 ML VIAL IV PRN (20:06)
[2018-01-14] MEDS ORDERED: SODIUM CHLORIDE 0.9% 1,000 ML IV SCH (20:15)
[2018-01-14] MEDS ORDERED: ACETAMINOPHEN TAB 325 MG TAB PO PRN (20:40)
[2018-01-14 20:59] LABS: Appearance,Urine Turbid (Clear); Bacteria,Urine Few /hpf; Bilirubin,Urine Negative (Negative); Blood,Urine Small (Negative); Color,Urine Yellow; Glucose,Urine (UA) Negative (Negative); Hyaline Casts,Urine 222 /lpf (0-2); Ketones,Urine Negative (Negative); Leukocyte Esterase,Urine Large (Negative); Mucus,Urine Many /hpf; Nitrite,Urine Negative (Negative); Protein,Urine 1+ (Negative); RBC,Urine 29 /hpf (0-5); Specific Gravity,Urine 1.016 (1.001-1.035); Squamous Epithelial Cell,Urine 4 /hpf (0-4); Urobilinogen,Urine <2.0 mg/dL (<2.0); WBC,Urine >182 /hpf (0-5)
[2018-01-14] MEDS ORDERED: FUROSEMIDE 10 MG/ML 4 ML VIAL IV SCH (21:00)
[2018-01-14 21:27] VITALS: BMI 27.7
[2018-01-14] MEDS: MELATONIN 5 MG TABLET PO SCH (21:40)
[2018-01-14] MEDS: QUEtiapine 25 MG TAB PO SCH (21:40)
[2018-01-14] MEDS: LEVOFLOXACIN 500MG-D5W PMX 500 MG in DEXTROSE/WATER 1 100ML.BAG IVPB SCH (21:40)
[2018-01-14] MEDS: GABAPENTIN 100 MG CAP PO SCH (21:42)
[2018-01-14 21:44] LABS: Creatine Kinase <20 U/L (30-135)
[2018-01-14] MEDS ORDERED: Potassium Replacement Protocol 1 EACH MISC MISCELLANE PRN (21:44)
[2018-01-14 21:58] LABS: Troponin I 0.048 ng/mL (0.000-0.034)
[2018-01-14] MEDS ORDERED: POTASSIUM CHLORIDE ER 20 MEQ TAB.ER PO SCH (22:00)
[2018-01-15] MEDS: PIPERACILLIN-TAZOBACTAM 3.375 GM in DEXTROSE/WATER 1 50ML.BAG IVPB SCH ×3 (00:26→16:07)
[2018-01-15] MEDS: HEPARIN SODIUM,PORCINE 5,000 UNIT/ML 1 ML VIAL SQ SCH ×3 (00:26→16:07)
[2018-01-15] MEDS ORDERED: SODIUM CHLORIDE 0.9% 1,000 ML IV ONE ×2 (03:14→14:36)
[2018-01-15 04:36] LABS: Magnesium 1.8 mg/dL (1.6-2.3); Potassium 3.5 mmol/L (3.5-5.1)
[2018-01-15 04:55] LABS: Creatine Kinase <20 U/L (30-135)
[2018-01-15 04:56] LABS: Anisocytosis Moderate; Basophils % (A) 0 %; Eosinophils % (A) 0 %; HCT 36.3 % (34.0-46.0); HGB 10.5 gm/dL (11.4-16.0); Hypochromasia Marked; Lymphocytes # (A) 0.9 k/uL (1.0-4.8); Lymphocytes % (A) 10 %; MCH 23.5 pg (25.0-35.0); MCHC 28.9 g/dL (31.0-37.0); MCV 81.3 fL (80.0-100.0); Mean Platelet Volume 7.5; Microcytosis Slight; Monocytes # (A) 0.6 k/uL (0-1.0); Monocytes % (A) 6 %; Neutrophils # (A) 7.3 k/uL (1.3-7.7); Neutrophils % (A) 80 %; Platelet Count 272 k/uL (150-450); RBC 4.47 m/uL (3.80-5.40); RDW 20.9 % (11.5-15.5); WBC 9.1 k/uL (3.8-10.6)
[2018-01-15 05:08] LABS: Creatine Kinase MB 0.9 ng/mL (0.0-2.4)
[2018-01-15 05:10] LABS: Troponin I 0.048 ng/mL (0.000-0.034)
[2018-01-15] MEDS ORDERED: Magnesium Replacement Protocol 1 EACH MISC MISCELLANE PRN (05:12)
[2018-01-15] MEDS: MAGNESIUM SULFATE-D5W PMX 1 GM in DEXTROSE/WATER 1 100ML.BAG IVPB SCH ×2 (05:19→06:46)
[2018-01-15] MEDS: POTASSIUM CHLORIDE ER 20 MEQ TAB.ER PO SCH ×2 (05:19→07:56)
--- NOTE | 2018-01-15 07:22 | XR ---
EXAMINATION TYPE: XR chest 1V portable DATE OF EXAM: 01/15/2018 Comparison: 01/14/2018 Clinical History: 77-year-old female shortness of breath, dyspnea Findings: Heart remains mildly enlarged. Atherosclerotic arch calcifications. Mild diffuse interstitial promine nce is unchanged. Known small right pleural effusion was only seen on the lateral view previously. Lo w lung volumes. Advanced degenerative changes of the shoulders. Impression: Cardiomegaly and hypoventilatory changes as seen previously. The patient's small right effusion was o nly seen on the lateral view on the prior exam.
[2018-01-15] MEDS: PANTOPRAZOLE 40 MG/10 ML VIAL IV SCH (08:00)
[2018-01-15] MEDS: GABAPENTIN 100 MG CAP PO SCH ×2 (08:00→20:42)
[2018-01-15] MEDS: ASPIRIN 325 MG TAB PO SCH (08:00)
[2018-01-15] MEDS ORDERED: SODIUM CHLORIDE 0.9% 500 ML IV ONE ×2 (09:07→11:07)
[2018-01-15] MEDS ORDERED: SODIUM CHLORIDE 0.9% 1,000 ML IV SCH (09:15)
--- NOTE | 2018-01-15 11:33 | P.HPIM ---
History of Present Illness H&P Date: 01/15/18 77-year-old female patient of my patient currently residing at [facility] with past medical history COPD on 6 L Oxygen , hypertension, obstructive sleep apnea refusing BiPAP/CPAP nighttime, chronic pain, gastric esophageal reflux disease, hypothyroidism, ALLERGIC rhinitis, osteoarthritis, idiopathic peripheral autonomic neuropathy, chronic urinary tract infections, vitamin D deficiency, morbid obesity, bed bound for the past 13 years, h/o prolonged intubation leading to tracheostomy which was finally removed, has been bedbound ever seen , History of severe pulmonary hypertension with severe tricuspid regurgitation was seen last in September 2017 for worsening shortness of breath and was discharged on 6 L of oxygen. Patient was treated for abdominal pain and difficulty breathing in the last visit. CT imaging with concern for cholelithiasis in the distal common duct and fecal impaction was seen. Patient also had a urinary tract infection with Proteus and was treated with Rocephin. Patient also received GoLYTELY treatment for her chronic constipation. Patient was transferred to the emergency room secondary to increasing shortness of breath, no significant cough , blood gas obtained at room air suggestive pO2 of 31. Patient was transferred to the ICU and was placed on BiPAP overnight. On my assessment this morning patient is doing well she is saturating in the low 90s on 6 L of oxygen. Systolic Blood pressure documented to be in the low 70s. Patient received 80 mg of IV Lasix in the ER as patient has high BNP with no urine output. His blood pressure was reportedly low patient was given 2 L of IV fluids followed by a 500 bolus this morning. Patient has contractures bilaterally lower extremity as well as upper extremity for being bedbound and has falls blood pressure readings on the blood pressure cough. Patient on examination appears to be dry and dehydrated. Urine output has improved with IV fluids. Vitals this morning suggestive blood pressure of 108/43, pulse of 101, respiratory rate 24 on BiPAP 92%. Currently on high flow of 6 L oxygen saturating well at 96-100%. Blood pressure cough reading of 67/51 is also as patient has good pulsation and is alert and oriented. Unable to get good blood pressure with cough readings. Labs obtained in the ER suggestive of hemoglobin of 11.6 leukocyte 10.2, INR 1.1, pO2 31 and CO2 47. Sodium 133 chloride 90, glucose 122 and creatinine 1. Troponin 3 were elevated though cardiology evaluated troponin anemia in the past with echocardiogram and has ruled out ACS in the past. Ideology and pulmonary consulted for help with pulmonary hypertension and hypoxia and increased BNP. Urinalysis is positive for leukocyte esterase. WBC and hyaline cast Review of Systems Constitutional: Denies chills, Denies fever, Denies lethargy, Denies malaise, Denies poor appetite, Denies weakness, Denies weight loss Eyes: denies decreased vision, denies diplopia, denies discharge, denies pain Ears: deny: decreased hearing Ears, nose, mouth and throat: Denies dental pain, Denies headache, Denies nasal discharge, Denies nose pain Cardiovascular: Denies chest pain, Denies decreased exercise tolerance, Denies edema, Denies high blood pressure, Denies irregular heart beat, Denies palpitations, Denies paroxysmal nocturnal dyspnea, Denies rapid heart beat, endorses shortness of breath Respiratory: Denies congestion, Denies cough, Denies cough with sputum, endorses dyspnea, Denies home oxygen, Denies wheezing Gastrointestinal: Denies abdominal pain, Denies change in bowel habits, Denies coffee ground emesis, Denies early satiety, Denies excessive gas, Denies heartburn, Denies hematemesis, Denies hematochezia, Denies loss of appetite, Denies nausea, Denies vomiting Genitourinary: Denies dysuria, Denies flank pain, Denies kidney stones, Denies menorrhagia, Denies urgency, Denies urinary frequency Musculoskeletal: Denies gait dysfunction, Denies limitation of motion, Denies morning stiffness, Denies muscle cramps Integumentary: Denies rash, Denies wounds, Denies brittle nails, Denies change in hair/nails, Denies darkening of skin Neurological: Denies balance difficulties, Denies change in speech, Denies double vision, Denies gait dysfunction, Denies loss of vision, Denies motor disturbance, Denies numbness, Denies paralysis, Denies paresthesias, Denies seizures Psychiatric: Denies anxiety, Denies depression Endocrine: Denies excessive sweating, Denies excessive thirst, Denies high blood sugars, Denies palpitations Hematologic/Lymphatic: Denies easy bruising, Denies lymphadenopathy Past Medical History Past Medical History: Heart Failure, COPD, GERD/Reflux, Hyperlipidemia, Hypertension, Musculoskeletal Disorder, Neurologic Disorder, Osteoarthritis (OA) , Pneumonia, Sleep Apnea/CPAP/BIPAP, Thyroid Disorder Additional Past Medical History / Comment(s): Respiratory failure with O2 at 6L/ [place] ATC, pulmonary HTN, bilateral pneumonia, tracheobronchitis, chronic UTIs, urosepsis with prolonged intubation and has been bed bound since (15yrs), past sacral decubitus-skin reddened now per [place] but not open, recent fecal impaction , [place] with Bipap use at times, chronic pain, diffuse abdominal pain for past few months, idiopathic peripheral autonomic neuropathy, arthritis in multiple joints, 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 History of Any Multi-Drug Resistant Organisms: VRE Date of last positivie culture/infection: 01/12/17 MDRO Source:: Urine Past Surgical History: Appendectomy, Joint Replacement, Orthopedic Surgery Additional Past Surgical History / Comment(s): PEG tube and trach placement with removals, left hip arthroplasty in 1995, ankle fracture with ORIF/hardware. Past Anesthesia/Blood Transfusion Reactions: No Reported Reaction Past Psychological History: Anxiety, Depression Additional Psychological History / Comment(s): Pt resides at [facility]. She is bedbound. She wears O2 at 6L/[place] ATC. Smoking Status: Former smoker Past Alcohol Use History: Unable to Obtain Additional Past Alcohol Use History / Comment(s): Patient was a smoker 3 packs per day for 38 years and quit in 1978. She has had alcohol use in the past. Past Drug Use History: Unable to Obtain - Past Family History Father Family Medical History: Myocardial Infarction (ND) Additional Family Medical History / Comment(s): at age 58 from [place] and had a fall with head injury. Mother Family Medical History: CVA/TIA Additional Family Medical History / Comment(s): Mother at age 70 from a CVA. Brother(s) Family Medical History: No Reported History Additional Family Medical History / Comment(s): Patient has one brother with no major medical problems. Sister(s) Family Medical History: No Reported History Additional Family Medical History / Comment(s): Patient has one sister with no major medical problems. Daughter(s) Family Medical History: No Reported History Additional Family Medical History / Comment(s): Patient has 2 daughters no major medical problems. Medications and Allergies Home Medications Medication Instructions Recorded Confirmed Type Aspirin 81 mg PO BID 01/12/17 01/14/18 History Cholecalciferol [Vitamin D3] 2,000 unit PO DAILY 01/12/17 01/14/18 History DULoxetine HCL [Cymbalta] 60 mg PO BID 01/12/17 01/14/18 History Gabapentin [Neurontin] 200 mg PO BID 01/12/17 01/14/18 History Ipratropium-Albuterol Nebulize 3 ml INHALATION RT-Q4H PRN 01/12/17 01/14/18 History [Duoneb 0.5 mg-3 mg/3 ml Soln] Levothyroxine Sodium [Synthroid] 125 mcg PO DAILY@0601/12/17 01/14/18 History Lidocaine 5% Patch [Lidoderm 5% 1 patch TOPICAL Q12H PRN MDD 2 01/12/17 History Patch] patches Loratadine [Claritin] 10 mg PO DAILY 01/12/17 01/14/18 History Omeprazole [PriLOSEC] 20 mg PO DAILY@0601/12/17 01/14/18 History Sodium Chloride [Saline Mist] 2 spray NASAL Q12H PRN 01/12/17 01/14/18 History Topiramate [Topamax] 50 mg PO BID 01/12/17 01/14/18 History QUEtiapine [SEROquel] 12.5 mg PO HS 07/21/17 01/14/18 History Sennosides-Docusate Sodium 2 tab PO DIRECTED 07/21/17 01/14/18 History [Senokot-S] Budesonide [Pulmicort] 1 mg INHALATION RT-BID 08/03/17 01/14/18 History Melatonin 10 mg PO HS 08/03/17 01/14/18 History acetaZOLAMIDE [Diamox] 250 mg PO DAILY 08/03/17 01/14/18 History Bacillus Coagulans [Digestive 1 cap PO DAILY 09/20/17 01/14/18 History Advantage] Bisacodyl [Dulcolax] 10 mg RECTAL DAILY PRN 09/20/17 01/14/18 History Escitalopram [Lexapro] 20 mg PO DAILY 09/20/17 01/14/18 History Lactose-Reduced Food [Ensure Plus] 237 ml PO QID@,,,09/20/17 01/14/18 History Mag Hydrox/Al Hydrox/Simeth 30 ml PO Q4H PRN 09/20/17 01/14/18 History [Maalox] Vitamins A and D [Vitamin A and D] 1 applic TOPICAL BID 09/20/17 01/14/18 History Hydrocodone/Acetaminophen [Paoli 1 tab PO BID #60 tab 09/22/17 01/14/18 Rx 7.5-325] Hydrocodone/Acetaminophen [Paoli 1 tab PO Q6HR PRN #60 tab 09/22/17 01/14/18 Rx 7.5-325] Spironolactone [Aldactone] 25 mg PO DAILY tab 09/22/17 01/14/18 Rx Lubiprostone [Amitiza] 24 mcg PO DAILY #30 cap 09/23/17 01/14/18 Rx ALPRAZolam [Xanax] 0.25 mg PO TID@,,01/14/18 01/14/18 History Acetaminophen Tab [Tylenol Tab] 650 mg PO Q4H PRN 01/14/18 01/14/18 History Allopurinol [Zyloprim] 600 mg PO DAILY 01/14/18 01/14/18 History Benzocaine [place] [Hurricaine [place]] 1 applic TOPICAL DAILY PRN 01/14/18 History Benzocaine [place] [Hurricaine [place]] 1 applic TOPICAL Q12H 01/14/18 01/14/18 History Colchicine 0.6 mg PO DAILY 01/14/18 01/14/18 History Collagenase [Santyl] 1 applic TOPICAL DAILY PRN 01/14/18 01/14/18 History Collagenase [Santyl] 1 applic TOPICAL HS 01/14/18 01/14/18 History Furosemide [Lasix] 40 mg PO BID@06,12 01/14/18 01/14/18 History Ipratropium-Albuterol Nebulize 3 ml INHALATION RT-QID@,,,01/14/1801/14 History [Duoneb 0.5 mg-3 mg/3 ml Soln] Lidocaine Viscous 2% [Xylocaine 0.3 ml MUCOUS MEM Q4H PRN 01/14/18 01/14/18 History Viscous] Magnesium Hydroxide [Milk of 2,400 mg PO DAILY PRN 01/14/18 01/14/18 History Magnesia] Polyethylene Glycol 3350 [Miralax] 17 gm PO DAILY PRN 01/14/18 01/14/18 History Polyethylene Glycol 3350 [Miralax] 17 gm PO NADINE@2100 01/14/18 01/14/18 History Vits A and D/White Pet/Lanolin [A 1 applic TOPICAL DAILY PRN 01/14/18 01/14/18 History and D Ointment] Allergies Allergy/AdvReac Type Severity Reaction Status Date / Time metronidazole [From Flagyl] Allergy Unknown Verified 01/14/18 15:03 Physical Exam Vitals: Vital Signs Temp Pulse Resp BP Pulse Ox 01/15/18 09:00 100 20 76/60 95 01/15/18 08:00 97.6 F 101 H 24 108/43 92 L 01/15/18 07:00 93 24 95/77 92 L 01/15/18 06:00 103 H 22 86/48 96 01/15/18 05:00 101 H 24 87/51 92 L 01/15/18 04:00 97.7 F 121 H 22 105/64 92 L 01/15/18 03:00 98 22 90 L 01/15/18 02:00 97 21 96/43 94 L 01/15/18 01:00 97 22 99/31 92 L 01/15/18 00:00 97.7 F 100 24 85/54 94 L 01/14/18 23:00 102 H 24 91/53 93 L 01/14/18 22:00 106 H 18 125/59 89 L 01/14/18 21:30 104 H 22 91 L 01/14/18 21:15 105 H 23 97/79 90 L 01/14/18 21:00 103 H 19 97/79 88 L 01/14/18 20:45 106 H 21 91/65 89 L 01/14/18 20:30 104 H 19 93/70 90 L 01/14/18 20:15 81 24 93/70 88 L 01/14/18 20:00 97.9 F 118 H 22 117/45 86 L 01/14/18 19:45 108 H 18 83 L 01/14/18 19:30 111 H 26 H 100/75 87 L 01/14/18 19:10 97.9 F 117 H 24 84 L 01/14/18 18:23 97.9 F 110 H 20 184/78 92 L 01/14/18 17:04 97.9 F 18 01/14/18 17:00 97.8 F 113 H 18 128/58 88 L 01/14/18 16:20 114 H 20 166/63 88 L 01/14/18 16:12 104 H 01/14/18 16:03 101 H 01/14/18 15:42 87 L 01/14/18 15:00 97.5 F L 105 H 20 149/75 81 L Intake and Output 01/14/18 01/15/18 01/15/18 22:59 06:59 14:59 Intake Total 150 1550 112.5 Output Total 105 360 65 Balance 45 1190 47.5 Intake: IV 150 1550 112.5 Levofloxacin 500Mg-D5w 100 Pmx 500 mg In Dextrose/ Water 1 100ml.bag @ 100 mls/hr IVPB Q24H [facility] Rx#: [id number] Magnesium Sulfate-D5w Pmx 200 1 gm In Dextrose/Water 1 100ml.bag @ 100 mls/hr IVPB Q1H [facility] Rx#: [id number] Piperacillin-Tazobactam 3 50 12.5 .375 gm In Dextrose/Water 1 50ml.bag @ 12.5 mls/hr IVPB Q8HR [facility] Rx#: [id number] Sodium Chloride 0.9% 1, 50 300 100 000 ml @ 50 mls/hr IV . Q20H [facility] Rx#:[id number] Sodium Chloride 0.9% 1, 1000 000 ml @ 999 mls/hr IV . Q1H1M [facility] Rx#:[id number] Output: Urine 105 360 65 Other: Voiding Method Indwelling Catheter Indwelling Catheter Weight 77.9 kg 77.9 kg - Constitutional General appearance: average body habitus, cooperative, obese - EENT Eyes: EOMI, PERRLA, poor dentition ENT: hearing grossly normal - Neck Neck: no lymphadenopathy, normal ROM, no rigidity Carotids: bilateral: upstroke normal Thyroid: bilateral: normal size - Respiratory Respiratory: bilateral: diminished, dullness, negative: rales, rhonchi, wheezing - Cardiovascular Rhythm: regular Heart sounds: normal: S1, S2 Abnormal Heart Sounds: systolic murmur systolic murmur (2) Location: left sternal border Grade: III/ ankle Peripheral Edema: bilateral: None dorsalis pedis Peripheral Pulses: bilateral: Normal - Gastrointestinal General gastrointestinal: normal bowel sounds, soft, no tenderness - Integumentary Integumentary: no cellulitis, no cyanotic, normal turgor - Neurologic Neurologic: CNII-XII intact (Bedbound has diffuse contractures both bilaterally upper and lower extremity) - Musculoskeletal Musculoskeletal: generalized weakness, strength equal bilaterally - Psychiatric Psychiatric: A&O x's 3, appropriate affect Results CBC & Chem 7: 01/15/18 04:14 01/15/18 04:14 Labs: Abnormal Lab Results - Last 24 Hours (Table) 01/14/18 01/14/18 01/14/18 Range/Units 15:30 15:30 15:30 Hgb (11.4-16.0) gm/dL MCH 23.2 L (25.0-35.0) pg MCHC 28.3 L (31.0-37.0) g/dL RDW 20.9 H (11.5-15.5) % Neutrophils # 8.8 H (1.3-7.7) k/uL Lymphocytes # 0.6 L (1.0-4.8) k/uL ABG pCO2 (35-45) mmHg ABG pO2 (83-108) mmHg ABG HCO3 (21-25) mmol/L ABG Total CO2 (19-24) mmol/L ABG O2 Saturation (94-97) % Sodium 133 L (137-145) mmol/L Chloride 90 L (98-107) mmol/L Carbon Dioxide 31 H (22-30) mmol/L BUN 29 H (7-17) mg/dL Glucose 122 H (74-99) mg/dL POC Glucose (mg/dL) (75-99) mg/dL Calcium (8.4-10.2) mg/dL Phosphorus (2.5-4.5) mg/dL Total Creatine Kinase <20 L (30-135) U/L Troponin I 0.046 H* (0.000-0.034) ng/mL Total Protein 6.2 L (6.3-8.2) g/dL Albumin 3.3 L (3.5-5.0) g/dL HDL Cholesterol (40-60) mg/dL Urine Appearance (Clear) Urine Protein (Negative) Urine Blood (Negative) Ur Leukocyte Esterase (Negative) Urine RBC (0-5) /hpf Urine WBC (0-5) /hpf Urine WBC Clumps (None) /hpf Urine Bacteria (None) /hpf Hyaline Casts (0-2) /lpf Urine Mucus (None) /hpf 01/14/18 01/14/18 01/14/18 Range/Units 16:31 19:12 20:47 Hgb (11.4-16.0) gm/dL MCH (25.0-35.0) pg MCHC (31.0-37.0) g/dL RDW (11.5-15.5) % Neutrophils # (1.3-7.7) k/uL Lymphocytes # (1.0-4.8) k/uL ABG pCO2 47 H (35-45) mmHg ABG pO2 31 L* (83-108) mmHg ABG HCO3 31 H (21-25) mmol/L ABG Total CO2 33 H (19-24) mmol/L ABG O2 Saturation 59.7 L (94-97) % Sodium (137-145) mmol/L Chloride (98-107) mmol/L Carbon Dioxide (22-30) mmol/L BUN (7-17) mg/dL Glucose (74-99) mg/dL POC Glucose (mg/dL) 145 H (75-99) mg/dL Calcium (8.4-10.2) mg/dL Phosphorus (2.5-4.5) mg/dL Total Creatine Kinase (30-135) U/L Troponin I (0.000-0.034) ng/mL Total Protein (6.3-8.2) g/dL Albumin (3.5-5.0) g/dL HDL Cholesterol (40-60) mg/dL Urine Appearance Turbid H (Clear) Urine Protein 1+ H (Negative) Urine Blood Small H (Negative) Ur Leukocyte Esterase Large H (Negative) Urine RBC 29 H (0-5) /hpf Urine WBC >182 H (0-5) /hpf Urine WBC Clumps Many H (None) /hpf Urine Bacteria Few H (None) /hpf Hyaline Casts 222 H (0-2) /lpf Urine Mucus Many H (None) /hpf 01/14/18 01/15/18 01/15/18 Range/Units 20:55 04:14 04:14 Hgb (11.4-16.0) gm/dL MCH (25.0-35.0) pg MCHC (31.0-37.0) g/dL RDW (11.5-15.5) % Neutrophils # (1.3-7.7) k/uL Lymphocytes # (1.0-4.8) k/uL ABG pCO2 (35-45) mmHg ABG pO2 (83-108) mmHg ABG HCO3 (21-25) mmol/L ABG Total CO2 (19-24) mmol/L ABG O2 Saturation (94-97) % Sodium 136 L (137-145) mmol/L Chloride 97 L (98-107) mmol/L Carbon Dioxide (22-30) mmol/L BUN 27 H (7-17) mg/dL Glucose (74-99) mg/dL POC Glucose (mg/dL) (75-99) mg/dL Calcium 8.0 L (8.4-10.2) mg/dL Phosphorus 5.0 H (2.5-4.5) mg/dL Total Creatine Kinase <20 L <20 L (30-135) U/L Troponin I 0.048 H* 0.048 H* (0.000-0.034) ng/mL Total Protein (6.3-8.2) g/dL Albumin (3.5-5.0) g/dL HDL Cholesterol 31 L (40-60) mg/dL Urine Appearance (Clear) Urine Protein (Negative) Urine Blood (Negative) Ur Leukocyte Esterase (Negative) Urine RBC (0-5) /hpf Urine WBC (0-5) /hpf Urine WBC Clumps (None) /hpf Urine Bacteria (None) /hpf Hyaline Casts (0-2) /lpf Urine Mucus (None) /hpf 01/15/18 Range/Units 04:14 Hgb 10.5 L (11.4-16.0) gm/dL MCH 23.5 L (25.0-35.0) pg MCHC 28.9 L (31.0-37.0) g/dL RDW 20.9 H (11.5-15.5) % Neutrophils # (1.3-7.7) k/uL Lymphocytes # 0.9 L (1.0-4.8) k/uL ABG pCO2 (35-45) mmHg ABG pO2 (83-108) mmHg ABG HCO3 (21-25) mmol/L ABG Total CO2 (19-24) mmol/L ABG O2 Saturation (94-97) % Sodium (137-145) mmol/L Chloride (98-107) mmol/L Carbon Dioxide (22-30) mmol/L BUN (7-17) mg/dL Glucose (74-99) mg/dL POC Glucose (mg/dL) (75-99) mg/dL Calcium (8.4-10.2) mg/dL Phosphorus (2.5-4.5) mg/dL Total Creatine Kinase (30-135) U/L Troponin I (0.000-0.034) ng/mL Total Protein (6.3-8.2) g/dL Albumin (3.5-5.0) g/dL HDL Cholesterol (40-60) mg/dL Urine Appearance (Clear) Urine Protein (Negative) Urine Blood (Negative) Ur Leukocyte Esterase (Negative) Urine RBC (0-5) /hpf Urine WBC (0-5) /hpf Urine WBC Clumps (None) /hpf Urine Bacteria (None) /hpf Hyaline Casts (0-2) /lpf Urine Mucus (None) /hpf Thrombosis Risk Factor Assmnt - DVT/VTE Prophylaxis DVT/VTE Prophylaxis: Pharmacologic Prophylaxis ordered - Choose All That Apply Any of the Below Risk Factors Present?: Yes Each Factor Represents 1 point: Medical pt on bed rest, Obesity (BMI >25) Other Risk Factors: Yes Each Risk Factor Represents 2 Points: Patient confined to bed Each Risk Factor Represents 3 Points: Age 75 years or older Other congenital or acquired thrombophilia - If yes, enter type in comment: No Thrombosis Risk Factor Assessment Total Risk Factor Score: 7 Thrombosis Risk Factor Assessment Level: High Risk Assessment and Plan Plan: 1. Acute on chronic hypoxemic respiratory failure with hypercarbic respiratory failure secondary to pulmonary hypertension, acute on chronic diastolic CHF, restrictiion in diaphragmatic excursion secondary to abdominal distention from chronic constipationcontinue nebulized albuterol Atrovent, O2 at 6 L high flow is oh cannula. Continue levofloxacin and Zosyn 2. Chronic constipation. Initiate patient on senna, Colace, GoLYTELY can be given intermittently as needed for patient refused multiple colonoscopies in the past refused enemas up she might benefit fromAmitiza 3. Recurrent dysphagia and early satiety without any aspirative events, history of GERD, and recurrent epigastric abdominal pain, EGD was discussed with the patient and is agreeable to this 4. Acute urinary tract infection with Proteus mirabilis growing on the most recent urine culture, continue Zosyn 5. Elevated troponin Previous echocardiogram performed July 2017 EF 55-60% right ventricular enlargement moderate,, continue on beta blockers, aspirin, blood pressure low but appears to be false reading due to mismatch and blood pressure cough. Cardiology evaluation pending. No EKG changes to suspect ST elevation [place] 6 obesity with hypoventilation syndrome and obstructive sleep apnea noncompliant with [facility]AP [facility] the jail, chronic hypercarbia, on O2 6 L maintenance in jail, currently receiving 6 L nasal cannula. 7 Severe secondary pulmonary hypertension from obstructive sleep apnea, noncompliant to CPAP machine, 8 Acute on chronic diastolic heart failure. Continue Toprol-XL 25 mg orally once every day, hold Lasix , IV Lasix given in the ER, BNP is significantly evelated, but no overt heart failure on imaging no evidence of pleural effusion or pericardial effusion, continue to monitor input and output and daily weight Ventricle systolic pressure of 90 moderate to severe TR 9 Medical debility, bedbound . Physical therapy evaluation, [facility] once patient stabilizes 10 GERD. Continue Protonix 40 mg orally once every day. 11 Hypertension and hypertensive cardiovascular disease. Continue Toprol-XL 25 mg orally once every day, amlodipine 5 mg orally once every day. 12 Hyperlipidemia. Low-cholesterol diet. 13 Hypothyroidism. Continue Synthroid 125 g orally once every day. 14 Peripheral neuropathy. Continue gabapentin 200 mg orally twice every day. 15 Depressive disorder. Continue patient on Cymbalta 60 mg orally once every day and Lexapro 10 mg orally once every day. 16 . Osteoarthritis with joint deformities including the right hand as well as bilateral lower extremity's. History of prolonged hospitialisation including intubation with developmont of significant paraparesis of both lower extremities with significant deformity of the right wrist. 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 Continue patient on Lexapro 20 mg orally once every day. On weaning doses of Seroquel 12.5 mg every day 18. ALLERGIC rhinitis. Continue patient on Claritin 10 mg orally once every day. 19. DVT prophylaxis. heparin q12 15. GI prophylaxis. Continue Protonix 40 mg orally once every day. 16. Patient is full code. Estimate a length of stay 2 midnights. 17. Admit to inpatient. 18 history of choledocholithiasis in the previous admission which was managed supportively. ERCP and MRCP was not done as patient's LFTs improved by itself
[2018-01-15] MEDS ORDERED: BENZOCAINE SPRAY 1 CAN TOPICAL PRN (13:34)
[2018-01-15] MEDS ORDERED: LIDOCAINE 5% PATCH TOPICAL PRN (13:34)
--- NOTE | 2018-01-15 13:52 | P.CNPUL ---
History of Present Illness Consult date: 01/15/18 Requesting physician: Edilberto Lopez Reason for consult: other (Acute on chronic hypoxic respiratory failure) Chief complaint: Low oxygen saturation at the [facility]/ History of present illness: This is a 77-year-old female with history of chronic hypoxic respiratory failure , underlying COPD, obstructive sleep apnea syndrome, severe pulmonary hypertension, all are factors causing her profound chronic hypoxic respiratory failure. Patient has been evaluated in the past, and she was seen by Dr. Arita on consultation. She resides at the [facility], and she is maintained on 6 L nasal cannula. She uses BiPAP mostly at night, and recently the patient has been noted to have low O2 saturations mostly in the 80s. Although the patient was relatively asymptomatic, she was brought into the ER, and for some reason she had an ABG on room air which clearly showed evidence of profound hypoxemia. Based on that ABG, and based on the fact that her blood pressure was fluctuating, patient was admitted to the intensive care unit, and I was asked to see her on consultation. Upon my evaluation, the patient was basically asymptomatic, she had no headache no blurred vision no dizziness no cough no wheezing. She had no nausea no vomiting no abdominal pain no melena no hematemesis. Patient does have chronic debility, she has chronic deformities involving her multiple joints including upper and lower extremities. Patient had previous episode of respiratory failure and she required intubation and mechanical ventilation as well as tracheostomy and has been bed bound for many years. Patient has clearly chronic medical debility and multiple deformities as noted above. And has been residing at the [facility] for a number of years. 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 Looking at her urinalysis, the patient may have underlying urinary tract infection and that is being addressed accordingly. Cultures are pending. Patient has no symptoms of urinary tract infection at present. Review of Systems 14 point review of systems were obtained, please refer to pertinent positives in HPI. Otherwise remaining systems are negative Past Medical History Past Medical History: Heart Failure, COPD, GERD/Reflux, Hyperlipidemia, Hypertension, Musculoskeletal Disorder, Neurologic Disorder, Osteoarthritis (OA) , Pneumonia, Sleep Apnea/CPAP/BIPAP, Thyroid Disorder Additional Past Medical History / Comment(s): Respiratory failure with O2 at 6L/ [place] ATC, pulmonary HTN, bilateral pneumonia, tracheobronchitis, chronic UTIs, urosepsis with prolonged intubation and has been bed bound since (15yrs), past sacral decubitus-skin reddened now per [place] but not open, recent fecal impaction , [place] with Bipap use at times, chronic pain, diffuse abdominal pain for past few months, idiopathic peripheral autonomic neuropathy, arthritis in multiple joints, 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 History of Any Multi-Drug Resistant Organisms: VRE Date of last positivie culture/infection: 01/12/17 MDRO Source:: Urine Past Surgical History: Appendectomy, Joint Replacement, Orthopedic Surgery Additional Past Surgical History / Comment(s): PEG tube and trach placement with removals, left hip arthroplasty in 1995, ankle fracture with ORIF/hardware. Past Anesthesia/Blood Transfusion Reactions: No Reported Reaction Past Psychological History: Anxiety, Depression Additional Psychological History / Comment(s): Pt resides at [facility] on [facility]. She is bedbound. She wears O2 at 6L/[place] ATC. Smoking Status: Former smoker Past Alcohol Use History: Unable to Obtain Additional Past Alcohol Use History / Comment(s): Patient was a smoker 3 packs per day for 38 years and quit in 1978. She has had alcohol use in the past. Past Drug Use History: Unable to Obtain - Past Family History Father Family Medical History: Myocardial Infarction ([place]) Additional Family Medical History / Comment(s): at age 58 from [place] and had a fall with head injury. Mother Family Medical History: CVA/TIA Additional Family Medical History / Comment(s): Mother at age 70 from a CVA. Brother(s) Family Medical History: No Reported History Additional Family Medical History / Comment(s): Patient has one brother with no major medical problems. Sister(s) Family Medical History: No Reported History Additional Family Medical History / Comment(s): Patient has one sister with no major medical problems. Daughter(s) Family Medical History: No Reported History Additional Family Medical History / Comment(s): Patient has 2 daughters no major medical problems. Medications and Allergies Home Medications Medication Instructions Recorded Confirmed Type Aspirin 81 mg PO BID 01/12/17 01/14/18 History Cholecalciferol [Vitamin D3] 2,000 unit PO DAILY 01/12/17 01/14/18 History DULoxetine HCL [Cymbalta] 60 mg PO BID 01/12/17 01/14/18 History Gabapentin [Neurontin] 200 mg PO BID 01/12/17 01/14/18 History Ipratropium-Albuterol Nebulize 3 ml INHALATION RT-Q4H PRN 01/12/17 01/14/18 History [Duoneb 0.5 mg-3 mg/3 ml Soln] Levothyroxine Sodium [Synthroid] 125 mcg PO DAILY@0600 01/12/17 01/14/18 History Lidocaine 5% Patch [Lidoderm 5% 1 patch TOPICAL Q12H PRN MDD 2 01/12/17 History Patch] patches Loratadine [Claritin] 10 mg PO DAILY 01/12/17 01/14/18 History Omeprazole [PriLOSEC] 20 mg PO DAILY@0600 01/12/17 01/14/18 History Sodium Chloride [Saline Mist] 2 spray NASAL Q12H PRN 01/12/17 01/14/18 History Topiramate [Topamax] 50 mg PO BID 01/12/17 01/14/18 History QUEtiapine [SEROquel] 12.5 mg PO HS 07/21/17 01/14/18 History Sennosides-Docusate Sodium 2 tab PO DIRECTED 07/21/17 01/14/18 History [Senokot-S] Budesonide [Pulmicort] 1 mg INHALATION RT-BID 08/03/17 01/14/18 History Melatonin 10 mg PO HS 08/03/17 01/14/18 History acetaZOLAMIDE [Diamox] 250 mg PO DAILY 08/03/17 01/14/18 History Bacillus Coagulans [Digestive 1 cap PO DAILY 09/20/17 01/14/18 History Advantage] Bisacodyl [Dulcolax] 10 mg RECTAL DAILY PRN 09/20/17 01/14/18 History Escitalopram [Lexapro] 20 mg PO DAILY 09/20/17 01/14/18 History Lactose-Reduced Food [Ensure Plus] 237 ml PO QID@,,,09/20/17 01/14/18 History Mag Hydrox/Al Hydrox/Simeth 30 ml PO Q4H PRN 09/20/17 01/14/18 History [Maalox] Vitamins A and D [Vitamin A and D] 1 applic TOPICAL BID 09/20/17 01/14/18 History Hydrocodone/Acetaminophen [Tynan 1 tab PO BID #60 tab 09/22/17 01/14/18 Rx 7.5-325] Hydrocodone/Acetaminophen [Tynan 1 tab PO Q6HR PRN #60 tab 09/22/17 01/14/18 Rx 7.5-325] Spironolactone [Aldactone] 25 mg PO DAILY tab 09/22/17 01/14/18 Rx Lubiprostone [Amitiza] 24 mcg PO DAILY #30 cap 09/23/17 01/14/18 Rx ALPRAZolam [Xanax] 0.25 mg PO TID@,,01/14/18 01/14/18 History Acetaminophen Tab [Tylenol Tab] 650 mg PO Q4H PRN 01/14/18 01/14/18 History Allopurinol [Zyloprim] 600 mg PO DAILY 01/14/18 01/14/18 History Benzocaine Parma [Hurricaine Parma] 1 applic TOPICAL DAILY PRN 01/14/18 History Benzocaine Parma [Hurricaine Parma] 1 applic TOPICAL Q12H 01/14/18 01/14/18 History Colchicine 0.6 mg PO DAILY 01/14/18 01/14/18 History Collagenase [Santyl] 1 applic TOPICAL DAILY PRN 01/14/18 01/14/18 History Collagenase [Santyl] 1 applic TOPICAL HS 01/14/18 01/14/18 History Furosemide [Lasix] 40 mg PO BID@06,12 01/14/18 01/14/18 History Ipratropium-Albuterol Nebulize 3 ml INHALATION RT-QID@,,,01/14/1801/14 History [Duoneb 0.5 mg-3 mg/3 ml Soln] Lidocaine Viscous 2% [Xylocaine 0.3 ml MUCOUS MEM Q4H PRN 01/14/18 01/14/18 History Viscous] Magnesium Hydroxide [Milk of 2,400 mg PO DAILY PRN 01/14/18 01/14/18 History Magnesia] Polyethylene Glycol 3350 [Miralax] 17 gm PO DAILY PRN 01/14/18 01/14/18 History Polyethylene Glycol 3350 [Miralax] 17 gm PO MOTUTHFRSA@2100 01/14/18 01/14/18 History Vits A and D/White Pet/Lanolin [A 1 applic TOPICAL DAILY PRN 01/14/18 01/14/18 History and D Ointment] Allergies Allergy/AdvReac Type Severity Reaction Status Date / Time metronidazole [From Flagyl] Allergy Unknown Verified 01/14/18 15:03 Physical Exam Vitals: Vital Signs Temp Pulse Resp BP Pulse Ox 01/15/18 13:00 100 18 119/98 97 01/15/18 12:30 114 H 14 103/36 92 L 01/15/18 12:00 98 F 102 H 20 104/47 100 01/15/18 11:30 100 17 67/51 97 01/15/18 11:00 98 14 67/51 100 01/15/18 10:30 133 H 13 139/75 89 L 01/15/18 10:00 97 20 139/75 96 01/15/18 09:00 100 20 76/60 95 01/15/18 08:00 97.6 F 101 H 24 108/43 92 L 01/15/18 07:00 93 24 95/77 92 L 01/15/18 06:00 103 H 22 86/48 96 01/15/18 05:00 101 H 24 87/51 92 L 01/15/18 04:00 97.7 F 121 H 22 105/64 92 L 01/15/18 03:00 98 22 90 L 01/15/18 02:00 97 21 96/43 94 L 01/15/18 01:00 97 22 99/31 92 L 01/15/18 00:00 97.7 F 100 24 85/54 94 L 01/14/18 23:00 102 H 24 91/53 93 L 01/14/18 22:00 106 H 18 125/59 89 L 01/14/18 21:30 104 H 22 91 L 01/14/18 21:15 105 H 23 97/79 90 L 01/14/18 21:00 103 H 19 97/79 88 L 01/14/18 20:45 106 H 21 91/65 89 L 01/14/18 20:30 104 H 19 93/70 90 L 01/14/18 20:15 81 24 93/70 88 L 01/14/18 20:00 97.9 F 118 H 22 117/45 86 L 01/14/18 19:45 108 H 18 83 L 01/14/18 19:30 111 H 26 H 100/75 87 L 01/14/18 19:10 97.9 F 117 H 24 84 L 01/14/18 18:23 97.9 F 110 H 20 184/78 92 L 01/14/18 17:04 97.9 F 18 01/14/18 17:00 97.8 F 113 H 18 128/58 88 L 01/14/18 16:20 114 H 20 166/63 88 L 01/14/18 16:12 104 H 01/14/18 16:03 101 H 01/14/18 15:42 87 L 01/14/18 15:00 97.5 F L 105 H 20 149/75 81 L Intake and Output 01/14/18 01/15/18 01/15/18 22:59 06:59 14:59 Intake Total 150 1550 1537.5 Output Total 105 360 145 Balance 45 1190 1392.5 Intake: IV 150 1550 1287.5 Levofloxacin 500Mg-D5w 100 Pmx 500 mg In Dextrose/ Water 1 100ml.bag @ 100 mls/hr IVPB Q24H MARLA Rx#: [id number] Magnesium Sulfate-D5w Pmx 200 1 gm In Dextrose/Water 1 100ml.bag @ 100 mls/hr IVPB Q1H MARLA Rx#: [id number] Piperacillin-Tazobactam 3 50 37.5 .375 gm In Dextrose/Water 1 50ml.bag @ 12.5 mls/hr IVPB Q8HR MARLA Rx#: [id number] Sodium Chloride 0.9% 1, 50 300 100 000 ml @ 50 mls/hr IV . Q20H MARLA Rx#:[id number] Sodium Chloride 0.9% 1, 150 000 ml @ 75 mls/hr IV . [id number] MARLA Rx#:[id number] Sodium Chloride 0.9% 1, 1000 000 ml @ 999 mls/hr IV . Q1H1M ONE Rx#:[id number] Sodium Chloride 0.9% 500 1000 ml @ 999 mls/hr IV .Q31M ONE Rx#:[id number] Oral 250 Output: Urine 105 360 145 Other: Voiding Method Indwelling Catheter Indwelling Catheter Indwelling Catheter Weight 77.9 kg 77.9 kg - Constitutional General appearance: Physical exam revealed a 77-year-old female, in no form of respiratory distress. - EENT Eyes: EOMI, PERRLA, no icterus, dry mucous membranes noted. ENT: Normal nasal mucosa noted. Dry mucous membranes noted. - Neck Neck: no lymphadenopathy, normal ROM, no rigidity Carotids: bilateral: upstroke normal Thyroid: bilateral: normal size - Respiratory Respiratory: Slightly diminished breath sounds at the bases, no crackles or rhonchi or wheezes. - Cardiovascular Rhythm: regular Heart sounds: normal: S1, S2 Abnormal Heart Sounds: 3/6 systolic murmur heard throughout the precordium. Peripheral Edema: bilateral: None dorsalis pedis Peripheral Pulses: bilateral: Normal - Gastrointestinal General gastrointestinal: Obese, soft, nontender, no megaly, no rebound, no guarding. Positive bowel sounds. - Integumentary Integumentary: no cellulitis, no cyanotic, normal turgor - Neurologic Neurologic: CNII-XII intact no gross focal neurologic deficit. - Musculoskeletal Musculoskeletal: generalized weakness, strength equal bilaterally multiple deformities noted in the hands and feet bilaterally. Chronic. Superficial he is also was noted also in the hands and feet bilaterally. - Psychiatric Psychiatric: A&O x's 3, appropriate affect Results - Laboratory Findings CBC and BMP: 01/15/18 04:14 01/15/18 12:05 ABG ABG pH 7.44 (7.35-7.45) 01/14/18 16:31 ABG pCO2 47 mmHg (35-45) H 01/14/18 16:31 ABG pO2 31 mmHg (83-108) L* 01/14/18 16:31 ABG O2 Saturation 59.7 % (94-97) L 01/14/18 16:31 PT/INR, D-dimer PT 10.3 sec (9.0-12.0) 01/14/18 15:30 INR 1.1 (<1.2) 01/14/18 15:30 D-Dimer 0.35 mg/L FEU (<0.60) 01/14/18 15:30 Abnormal lab findings: Abnormal Labs 01/14/18 01/14/18 01/14/18 15:30 15:30 15:30 Hgb MCH 23.2 L MCHC 28.3 L RDW 20.9 H Neutrophils # 8.8 H Lymphocytes # 0.6 L ABG pCO2 ABG pO2 ABG HCO3 ABG Total CO2 ABG O2 Saturation Sodium 133 L Chloride 90 L Carbon Dioxide 31 H BUN 29 H Glucose 122 H POC Glucose (mg/dL) Calcium Phosphorus Total Creatine Kinase <20 L Troponin I 0.046 H* Total Protein 6.2 L Albumin 3.3 L HDL Cholesterol Urine Appearance Urine Protein Urine Blood Ur Leukocyte Esterase Urine RBC Urine WBC Urine WBC Clumps Urine Bacteria Hyaline Casts Urine Mucus 01/14/18 01/14/18 01/14/18 16:31 19:12 20:47 Hgb MCH MCHC RDW Neutrophils # Lymphocytes # ABG pCO2 47 H ABG pO2 31 L* ABG HCO3 31 H ABG Total CO2 33 H ABG O2 Saturation 59.7 L Sodium Chloride Carbon Dioxide BUN Glucose POC Glucose (mg/dL) 145 H Calcium Phosphorus Total Creatine Kinase Troponin I Total Protein Albumin HDL Cholesterol Urine Appearance Turbid H Urine Protein 1+ H Urine Blood Small H Ur Leukocyte Esterase Large H Urine RBC 29 H Urine WBC >182 H Urine WBC Clumps Many H Urine Bacteria Few H Hyaline Casts 222 H Urine Mucus Many H 01/14/18 01/15/18 01/15/18 20:55 04:14 04:14 Hgb MCH MCHC RDW Neutrophils # Lymphocytes # ABG pCO2 ABG pO2 ABG HCO3 ABG Total CO2 ABG O2 Saturation Sodium 136 L Chloride 97 L Carbon Dioxide BUN 27 H Glucose POC Glucose (mg/dL) Calcium 8.0 L Phosphorus 5.0 H Total Creatine Kinase <20 L <20 L Troponin I 0.048 H* 0.048 H* Total Protein Albumin HDL Cholesterol 31 L Urine Appearance Urine Protein Urine Blood Ur Leukocyte Esterase Urine RBC Urine WBC Urine WBC Clumps Urine Bacteria Hyaline Casts Urine Mucus 01/15/18 04:14 Hgb 10.5 L MCH 23.5 L MCHC 28.9 L RDW 20.9 H Neutrophils # Lymphocytes # 0.9 L ABG pCO2 ABG pO2 ABG HCO3 ABG Total CO2 ABG O2 Saturation Sodium Chloride Carbon Dioxide BUN Glucose POC Glucose (mg/dL) Calcium Phosphorus Total Creatine Kinase Troponin I Total Protein Albumin HDL Cholesterol Urine Appearance Urine Protein Urine Blood Ur Leukocyte Esterase Urine RBC Urine WBC Urine WBC Clumps Urine Bacteria Hyaline Casts Urine Mucus - Diagnostic Findings Chest x-ray: image reviewed (No evidence of active disease noted on the chest x- ray done this morning.) Assessment and Plan Assessment: Impression: 1Acute on chronic hypoxic and hypercapnic respiratory failure secondary to severe pulmonary hypertension, COPD, obstructive sleep apnea syndrome, and 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 2 acute urinary tract infection, cultures are pending, continue Zosyn in the meantime. 3 severe secondary pulmonary hypertension as noted above. 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 6 chronic generalized anxiety disorder. 7 hypothyroidism, peripheral neuropathy, hyperlipidemia, GERD without esophagitis, medical debility, Recommendation: Continue present supportive care measures, continue empiric antibiotics for now, BiPAP as needed which I have utilized early this morning now the patient is back on nasal cannula. Consider transferring the patient out of the ICU later today if remains hemodynamically stable and urine output picks up nicely with fluid boluses. We'll continue to follow. Time with Patient: Greater than 30
[2018-01-15] MEDS ORDERED: POTASSIUM CHLORIDE ER 20 MEQ TAB.ER PO SCH (14:00)
[2018-01-15 14:47] LABS: ABG PH 7.36 (7.35-7.45)
[2018-01-15 14:48] LABS: ABG Base Excess 7.8 mmol/L; ABG HCO3 33 mmol/L (21-25); ABG Oxygen Saturation 90.9 % (94-97); ABG PCO2 60 mmHg (35-45); ABG PO2 63 mmHg (83-108); ABG TCO2 35 mmol/L (19-24)
[2018-01-15] MEDS: SPIRONOLACTONE 25 MG TAB PO SCH (16:07)
[2018-01-15] MEDS: SODIUM CHLORIDE 0.9% 1,000 ML IV SCH (16:08)
[2018-01-15] MEDS: HYDROcodone/APAP 7.5-325MG 1 EACH TAB PO PRN (16:14)
[2018-01-15] MEDS: FUROSEMIDE 10 MG/ML 4 ML VIAL IV SCH ×2 (16:29→20:47)
[2018-01-15] MEDS: NYSTATIN 100,000 UNIT/ML SUSP 500,000 UNIT/5 ML CUP PO SCH ×2 (17:38→20:49)
[2018-01-15] MEDS: BUDESONIDE 1 MG/2 ML NEBU INHALATION SCH (20:23)
[2018-01-15] MEDS: LEVOFLOXACIN 500MG-D5W PMX 500 MG in DEXTROSE/WATER 1 100ML.BAG IVPB SCH (20:30)
[2018-01-15] MEDS: MELATONIN 5 MG TABLET PO SCH (20:41)
[2018-01-15] MEDS: QUEtiapine 25 MG TAB PO SCH (20:41)
[2018-01-15] MEDS: ALPRAZolam 0.25 MG TAB PO SCH (20:42)
[2018-01-15] MEDS: DULoxetine HCL 60 MG CAPSULE.DR PO SCH (20:42)
[2018-01-15] MEDS: COLLAGENASE 250 UNIT/GM OINTMENT 30 GM TUBE TOPICAL SCH (20:42)
[2018-01-15] MEDS: SENNOSIDES-DOCUSATE SODIUM 1 EACH TAB PO SCH (20:42)
[2018-01-16] MEDS: HYDROcodone/APAP 7.5-325MG 1 EACH TAB PO PRN (00:30)
[2018-01-16] MEDS: HEPARIN SODIUM,PORCINE 5,000 UNIT/ML 1 ML VIAL SQ SCH ×4 (00:31→23:31)
[2018-01-16] MEDS: PIPERACILLIN-TAZOBACTAM 3.375 GM in DEXTROSE/WATER 1 50ML.BAG IVPB SCH ×4 (00:31→23:31)
[2018-01-16 04:52] LABS: Anisocytosis Moderate; Basophils % (A) 0 %; Eosinophils # (A) 0.2 k/uL (0-0.7); Eosinophils % (A) 2 %; HCT 35.4 % (34.0-46.0); HGB 10.1 gm/dL (11.4-16.0); Hypochromasia Marked; Lymphocytes # (A) 0.5 k/uL (1.0-4.8); Lymphocytes % (A) 6 %; MCH 23.6 pg (25.0-35.0); MCHC 28.4 g/dL (31.0-37.0); MCV 83.1 fL (80.0-100.0); Mean Platelet Volume 7.6; Microcytosis Slight; Monocytes # (A) 0.4 k/uL (0-1.0); Monocytes % (A) 5 %; Neutrophils # (A) 8.1 k/uL (1.3-7.7); Neutrophils % (A) 86 %; Platelet Count 261 k/uL (150-450); RBC 4.26 m/uL (3.80-5.40); RDW 20.8 % (11.5-15.5); WBC 9.4 k/uL (3.8-10.6)
[2018-01-16 05:12] LABS: Calcium 8.4 mg/dL (8.4-10.2); Phosphorus 4.4 mg/dL (2.5-4.5); Potassium 4.1 mmol/L (3.5-5.1)
[2018-01-16 05:21] LABS: Glucose,Whole Blood 79 mg/dL (75-99)
[2018-01-16] MEDS: ALPRAZolam 0.25 MG TAB PO SCH ×3 (06:38→20:42)
[2018-01-16] MEDS: LEVOTHYROXINE 125 MCG TAB PO SCH (06:39)
[2018-01-16] MEDS: SODIUM CHLORIDE 0.9% 1,000 ML IV SCH ×3 (06:39→23:48)
[2018-01-16 06:46] LABS: Glucose,Whole Blood 82 mg/dL (75-99)
--- NOTE | 2018-01-16 07:26 | XR ---
EXAMINATION TYPE: XR chest 1V portable DATE OF EXAM: 01/16/2018 Comparison: 01/15/2018 Clinical History: 77-year-old female shortness of breath, dyspnea Findings: Low lung volumes with crowded basilar vascular markings. Heart remains enlarged. Rightward patient ro tation altering the normal cardiomediastinal contours. Visualized upper to mid lung is relatively jeanette ar. Limited assessment of the lung bases. A prior lateral view showed a small effusion. Impression: Rotated exam with continued hypoventilatory changes and cardiomegaly. No acute change.
[2018-01-16] MEDS: BUDESONIDE 1 MG/2 ML NEBU INHALATION SCH ×2 (08:16→18:40)
--- NOTE | 2018-01-16 08:47 | CONS ---
CONSULTATION Mrs. Garcia is a 77-year-old female who is seen for cardiac evaluation and abnormal troponin. Patient's medical records were reviewed. This patient has a known history of chronic hypoxic respiratory failure, underlying COPD. The patient is most of the time confined to the bed. The patient was noticed to have hypoxemia at the [facility] and was transferred to the emergency room. In the emergency room, patient had a blood gases done on the room air, which showed evidence of severe hypoxia. The patient had been on 6 to 8 L of oxygen at the [facility]. She denies any chest pain. She denies any significant cough with expectoration. There is no prior history of any myocardial infarction. The patient's echocardiogram reviewed which reveals normal left ventricular systolic function and enlargement of right ventricle and right atrium with severely pulmonary hypertension and impaired right ventricular systolic function. PAST MEDICAL HISTORY: Includes a history of chronic respiratory failure and patient has been confined to the bed. History of orthopedic surgery and joint replacement. PHYSICAL EXAMINATION: At present reveals a 77-year-old female who is obesely built, does not appear to be in any acute respiratory distress. Patient's heart rate is 77 per minute, blood pressure is 110/80 mmHg. HEENT examination is negative. Neck is supple. Jugular venous pressure is difficult to assess. First and second heart sounds are normal. Lungs examination revealed bilateral diminished air entry. Abdomen is soft. Extremities: There is trace leg edema. Chest x-ray does not show any significant failure. The patient's urine output is borderline. She has received about 1 L of a bolus and she has a 10-15 mL of urine output. The patient's 3 troponins are 0.048 without any significant rise and fall. FINAL IMPRESSION: This patient is admitted with acute hypoxic respiratory acute. Patient has a borderline elevated troponin without any significant rise and fall and is not suggestive of acute coronary syndrome. The patient's echocardiogram reveals normal left ventricular systolic function with severe pulmonary hypertension. In view of that, I would recommend to treat the patient with IV Lasix and Aldactone 25 mg daily would be added. The patient's overall prognosis is poor. MMSULAIMANL / KASSIEN: [id number] /
[2018-01-16] MEDS: ALLOPURINOL 300 MG TAB PO SCH (08:55)
[2018-01-16] MEDS: ASPIRIN 325 MG TAB PO SCH (08:56)
[2018-01-16] MEDS: COLCHICINE 0.6 MG EACH PO SCH (08:56)
[2018-01-16] MEDS: CHOLECALCIFEROL 1,000 UNIT TAB PO SCH (08:56)
[2018-01-16] MEDS: DULoxetine HCL 60 MG CAPSULE.DR PO SCH ×2 (08:58→20:42)
[2018-01-16] MEDS: NYSTATIN 100,000 UNIT/ML SUSP 500,000 UNIT/5 ML CUP PO SCH ×4 (08:59→21:37)
[2018-01-16] MEDS: ESCITALOPRAM 20 MG TAB PO SCH (08:59)
[2018-01-16] MEDS: FUROSEMIDE 10 MG/ML 4 ML VIAL IV SCH ×2 (08:59→20:43)
[2018-01-16] MEDS: GABAPENTIN 100 MG CAP PO SCH ×2 (08:59→20:42)
[2018-01-16] MEDS: SPIRONOLACTONE 25 MG TAB PO SCH (09:00)
[2018-01-16] MEDS: SENNOSIDES-DOCUSATE SODIUM 1 EACH TAB PO SCH ×2 (09:00→20:42)
[2018-01-16] MEDS: PANTOPRAZOLE 40 MG/10 ML VIAL IV SCH (09:00)
[2018-01-16] MEDS: LORATADINE 10 MG TAB PO SCH (09:02)
--- NOTE | 2018-01-16 10:18 | P.PN ---
Subjective Progress Note Date: 01/16/18 77-year-old female patient of my patient currently residing at [facility] with past medical history COPD on 6 L Oxygen , hypertension, obstructive sleep apnea refusing BiPAP/CPAP nighttime, chronic pain, gastric esophageal reflux disease, hypothyroidism, ALLERGIC rhinitis, osteoarthritis, idiopathic peripheral autonomic neuropathy, chronic urinary tract infections, vitamin D deficiency, morbid obesity, bed bound for the past 13 years, h/o prolonged intubation leading to tracheostomy which was finally removed, has been bedbound ever seen , History of severe pulmonary hypertension with severe tricuspid regurgitation was seen last in September 2017 for worsening shortness of breath and was discharged on 6 L of oxygen. Patient was treated for abdominal pain and difficulty breathing in the last visit. CT imaging with concern for cholelithiasis in the distal common duct and fecal impaction was seen. Patient also had a urinary tract infection with Proteus and was treated with Rocephin. Patient also received GoLYTELY treatment for her chronic constipation. Patient was transferred to the emergency room secondary to increasing shortness of breath, no significant cough , blood gas obtained at room air suggestive pO2 of 31. Patient was transferred to the ICU and was placed on BiPAP overnight. On my assessment this morning patient is doing well she is saturating in the low 90s on 6 L of oxygen. Systolic Blood pressure documented to be in the low 70s. Patient received 80 mg of IV Lasix in the ER as patient has high BNP with no urine output. His blood pressure was reportedly low patient was given 2 L of IV fluids followed by a 500 bolus this morning. Patient has contractures bilaterally lower extremity as well as upper extremity for being bedbound and has falls blood pressure readings on the blood pressure cough. Patient on examination appears to be dry and dehydrated. Urine output has improved with IV fluids. Vitals this morning suggestive blood pressure of 108/43, pulse of 101, respiratory rate 24 on BiPAP 92%. Currently on high flow of 6 L oxygen saturating well at 96-100%. Blood pressure cough reading of 67/51 is also as patient has good pulsation and is alert and oriented. Unable to get good blood pressure with cough readings. Labs obtained in the ER suggestive of hemoglobin of 11.6 leukocyte 10.2, INR 1.1, pO2 31 and CO2 47. Sodium 133 chloride 90, glucose 122 and creatinine 1. Troponin 3 were elevated though cardiology evaluated troponin anemia in the past with echocardiogram and has ruled out ACS in the past. Ideology and pulmonary consulted for help with pulmonary hypertension and hypoxia and increased BNP. Urinalysis is positive for leukocyte esterase. WBC and hyaline cast 9/ patient is more awake and alert still requiring 6 L of high flow oxygen. Blood pressure stable with IV fluids running at 100 mL/h. Patient initiated on Lasix and Aldactone to help with urine output. Patient is maintaining a 30-40 mL per hour of urine output. Urine cultures are still pending continue Zosyn. Objective - Vital Signs Vital signs: Vital Signs Temp 98.4 F 01/16/18 08:00 Pulse 106 H 01/16/18 09:00 Resp 26 H 01/16/18 09:00 BP 104/61 01/16/18 09:00 Pulse Ox 90 L 01/16/18 09:00 Intake & Output 01/15/18 01/16/18 01/16/18 18:59 06:59 18:59 Intake Total 2937.5 1612.5 200 Output Total 314 635 62 Balance 2623.5 977.5 138 Weight 84.2 kg Intake: IV 2687.5 1362.5 200 Levofloxacin 500Mg-D5w 100 Pmx 500 mg In Dextrose/ Water 1 100ml.bag @ 100 mls/hr IVPB Q24H [facility]LA Rx#: [id number] Piperacillin-Tazobactam 3 62.5 62.5 .375 gm In Dextrose/Water 1 50ml.bag @ 12.5 mls/hr IVPB Q8HR MARLA Rx#: [id number] Sodium Chloride 0.9% 1, 300 1200 200 000 ml @ 100 mls/hr IV . Q10H MARLA Rx#:[id number] Sodium Chloride 0.9% 1, 100 000 ml @ 50 mls/hr IV . Q20H MARLA Rx#:[id number] Sodium Chloride 0.9% 1, 225 000 ml @ 75 mls/hr IV . [id number] MARLA Rx#:[id number] Sodium Chloride 0.9% 500 1000 ml @ 999 mls/hr IV .Q31M ONE Rx#:[id number] Sodium Chloride 0.9% 500 1000 ml @ 999 mls/hr IV .Q31M ONE Rx#:[id number] Oral 250 250 Output: Urine 314 635 62 Other: Voiding Method Indwelling Catheter Indwelling Catheter Indwelling Catheter - Exam - Constitutional General appearance: average body habitus, cooperative, obese - EENT Eyes: EOMI, PERRLA, poor dentition ENT: hearing grossly normal - Neck Neck: no lymphadenopathy, normal ROM, no rigidity Carotids: bilateral: upstroke normal Thyroid: bilateral: normal size - Respiratory Respiratory: bilateral: diminished, dullness, negative: rales, rhonchi, wheezing - Cardiovascular Rhythm: regular Heart sounds: normal: S1, S2 Abnormal Heart Sounds: systolic murmur systolic murmur (2) Location: left sternal border Grade: III/ ankle Peripheral Edema: bilateral: None dorsalis pedis Peripheral Pulses: bilateral: Normal - Gastrointestinal General gastrointestinal: normal bowel sounds, soft, no tenderness - Integumentary Integumentary: no cellulitis, no cyanotic, normal turgor - Neurologic Neurologic: CNII-XII intact (Bedbound has diffuse contractures both bilaterally upper and lower extremity) - Musculoskeletal Musculoskeletal: generalized weakness, strength equal bilaterally - Psychiatric Psychiatric: A&O x's 3, appropriate affect - Labs CBC & Chem 7: 01/16/18 04:39 01/16/18 04:39 Labs: Abnormal Lab Results - Last 24 Hours (Table) 01/15/18 01/16/18 01/16/18 Range/Units 14:46 04:39 04:39 Hgb 10.1 L (11.4-16.0) gm/dL MCH 23.6 L (25.0-35.0) pg MCHC 28.4 L (31.0-37.0) g/dL RDW 20.8 H (11.5-15.5) % Neutrophils # 8.1 H (1.3-7.7) k/uL Lymphocytes # 0.5 L (1.0-4.8) k/uL ABG pCO2 60 H (35-45) mmHg ABG pO2 63 L (83-108) mmHg ABG HCO3 33 H (21-25) mmol/L ABG Total CO2 35 H (19-24) mmol/L ABG O2 Saturation 90.9 L (94-97) % Sodium 134 L (137-145) mmol/L BUN 23 H (7-17) mg/dL Glucose 68 L (74-99) mg/dL Microbiology - Last 24 Hours (Table) 01/14/18 15:30 Blood Culture - Preliminary Blood No Growth after 24 hours 01/14/18 20:47 Urine Culture - Preliminary Urine,Catheterized Assessment and Plan Plan: 1. Acute on chronic hypoxemic respiratory failure with hypercarbic respiratory failure secondary to pulmonary hypertension, acute on chronic diastolic CHF, restrictiion in diaphragmatic excursion secondary to abdominal distention from chronic constipation , [place], pulmonary hypertension continue nebulized albuterol Atrovent, O2 at 6 L high flow is oh cannula. Continue levofloxacin and Zosyn 2. Chronic constipation. Initiate patient on senna, Colace, GoLYTELY can be given intermittently as needed for patient refused multiple colonoscopies in the past refused enemas up she might benefit fromAmitiza 3. Recurrent dysphagia and early satiety without any aspirative events, history of GERD, and recurrent epigastric abdominal pain, EGD was discussed with the patient and is agreeable to this 4. Acute urinary tract infection with Proteus mirabilis growing on the most recent urine culture, continue Zosyn. Urine culture pending 5. Elevated troponin Previous echocardiogram performed July 2017 EF 55-60% right ventricular enlargement moderate,, continue on beta blockers, aspirin, blood pressure low but appears to be false reading due to mismatch and blood pressure cough. Cardiology evaluation pending. No EKG changes to suspect ST elevation [place] 6 obesity with hypoventilation syndrome and obstructive sleep apnea noncompliant with CPAP on the custodial, chronic hypercarbia, on O2 6 L maintenance in custodial, currently receiving 6 L nasal cannula. 7 Severe secondary pulmonary hypertension from obstructive sleep apnea, noncompliant to CPAP machine, 8 Acute on chronic diastolic heart failure. Continue Toprol-XL 25 mg orally once every day, hold Lasix , IV Lasix given in the ER, BNP is significantly evelated, but no overt heart failure on imaging no evidence of pleural effusion or pericardial effusion, continue to monitor input and output and daily weight Ventricle systolic pressure of 90 moderate to severe TR 9 Medical debility, bedbound . Physical therapy evaluation, discharge to [facility] once patient stabilizes 10 GERD. Continue Protonix 40 mg orally once every day. 11 Hypertension and hypertensive cardiovascular disease. Continue Toprol-XL 25 mg orally once every day, amlodipine 5 mg orally once every day. 12 Hyperlipidemia. Low-cholesterol diet. 13 Hypothyroidism. Continue Synthroid 125 g orally once every day. 14 Peripheral neuropathy. Continue gabapentin 200 mg orally twice every day. 15 Depressive disorder. Continue patient on Cymbalta 60 mg orally once every day and Lexapro 10 mg orally once every day. 16 . Osteoarthritis with joint deformities including the right hand as well as bilateral lower extremity's. History of prolonged hospitialisation including intubation with developmont of significant paraparesis of both lower extremities with significant deformity of the right wrist. 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 Continue patient on Lexapro 20 mg orally once every day. On weaning doses of Seroquel 12.5 mg every day 18. ALLERGIC rhinitis. Continue patient on Claritin 10 mg orally once every day. 19. DVT prophylaxis. heparin q12 15. GI prophylaxis. Continue Protonix 40 mg orally once every day. 16. Patient is full code. Estimate a length of stay 2 midnights. 17. Admit to inpatient. 18 history of choledocholithiasis in the previous admission which was managed supportively. ERCP and MRCP was not done as patient's LFTs improved by itself
--- NOTE | 2018-01-16 12:18 | P.PN ---
Subjective Progress Note Date: 01/16/18 Principal diagnosis: Acute on chronic hypoxic respiratory failure, multifactorial. This is a 77-year-old female with history of chronic hypoxic respiratory failure , underlying COPD, obstructive sleep apnea syndrome, severe pulmonary hypertension, all are factors causing her profound chronic hypoxic respiratory failure. Patient has been evaluated in the past, and she was seen by Dr. Arita on consultation. She resides at the [facility], and she is maintained on 6 L nasal cannula. She uses BiPAP mostly at night, and recently the patient has been noted to have low O2 saturations mostly in the 80s. Although the patient was relatively asymptomatic, she was brought into the ER, and for some reason she had an ABG on room air which clearly showed evidence of profound hypoxemia. Based on that ABG, and based on the fact that her blood pressure was fluctuating, patient was admitted to the intensive care unit, and I was asked to see her on consultation. Upon my evaluation, the patient was basically asymptomatic, she had no headache no blurred vision no dizziness no cough no wheezing. She had no nausea no vomiting no abdominal pain no melena no hematemesis. Patient does have chronic debility, she has chronic deformities involving her multiple joints including upper and lower extremities. Patient had previous episode of respiratory failure and she required intubation and mechanical ventilation as well as tracheostomy and has been bed bound for many years. Patient has clearly chronic medical debility and multiple deformities as noted above. [facility]. I reviewed her chest x-ray, reviewed her labs, reviewed her previous admissions, and felt that the patient could be transferred out of the ICU to a regular medical floor, clinically the patient was noted to be dehydrated, given multiple fluid boluses, and I believe her blood pressure corrected nicely with fluid boluses and her urine output was noted to fern picker nicely. Looking at her urinalysis, the patient may have underlying urinary tract infection and that is being addressed accordingly. Cultures are pending. Patient has no symptoms of urinary tract infection at present. Patient was reevaluated today on 01/16/2018, awake, in no form of distress, on 6 L high flow nasal cannula. Blood pressure is stable, urine output picked up nicely after she was given multiple fluid boluses yesterday, and this was followed by [facility] yesterday. Urine output overnight was great, seems to be tapering down today to 50 mL per hour. Patient feels fine, denies any cough no wheezing no shortness of breath no chest pain no nausea no vomiting no abdominal pain. CBC was reviewed and seems to be normal. Basic metabolic profile is normal BUN is 23 creatinine is 1.03, unchanged since admission. Objective - Vital Signs Vital signs: Vital Signs Temp 98.1 F 01/16/18 12:00 Pulse 94 01/16/18 12:00 Resp 72 H 01/16/18 12:00 BP 112/50 01/16/18 12:00 Pulse Ox 94 L 01/16/18 12:00 Intake & Output 01/15/18 01/16/18 01/16/18 18:59 06:59 18:59 Intake Total 2937.5 1612.5 500 Output Total 314 635 204 Balance 2623.5 977.5 296 Weight 84.2 kg Intake: IV 2687.5 1362.5 500 Levofloxacin 500Mg-D5w 100 Pmx 500 mg In Dextrose/ Water 1 100ml.bag @ 100 mls/hr IVPB Q24H [facility]LA Rx#: [id number] Piperacillin-Tazobactam 3 62.5 62.5 .375 gm In Dextrose/Water 1 50ml.bag @ 12.5 mls/hr IVPB Q8HR [facility]LA Rx#: [id number] Sodium Chloride 0.9% 1, 300 1200 500 000 ml @ 100 mls/hr IV . Q10H MARLA Rx#:[id number] Sodium Chloride 0.9% 1, 100 000 ml @ 50 mls/hr IV . Q20H MARLA Rx#:[id number] Sodium Chloride 0.9% 1, 225 000 ml @ 75 mls/hr IV . [id number] MARLA Rx#:[id number] Sodium Chloride 0.9% 500 1000 ml @ 999 mls/hr IV .Q31M ONE Rx#:[id number] Sodium Chloride 0.9% 500 1000 ml @ 999 mls/hr IV .Q31M ONE Rx#:[id number] Oral 250 250 Output: Urine 314 635 204 Other: Voiding Method Indwelling Catheter Indwelling Catheter Indwelling Catheter - Exam - Constitutional General appearance: Physical exam revealed a 77-year-old female, in no form of respiratory distress. - EENT Eyes: EOMI, PERRLA, no icterus, dry mucous membranes noted. ENT: Normal nasal mucosa noted. Dry mucous membranes noted. - Neck Neck: no lymphadenopathy, normal ROM, no rigidity Carotids: bilateral: upstroke normal Thyroid: bilateral: normal size - Respiratory Respiratory: Slightly diminished breath sounds at the bases, no crackles or rhonchi or wheezes. - Cardiovascular Rhythm: regular Heart sounds: normal: S1, S2 Abnormal Heart Sounds: 3/6 systolic murmur heard throughout the precordium. Peripheral Edema: bilateral: None dorsalis pedis Peripheral Pulses: bilateral: Normal - Gastrointestinal General gastrointestinal: Obese, soft, nontender, no megaly, no rebound, no guarding. Positive bowel sounds. - Integumentary Integumentary: no cellulitis, no cyanotic, normal turgor - Neurologic Neurologic: CNII-XII intact no gross focal neurologic deficit. - Musculoskeletal Musculoskeletal: generalized weakness, strength equal bilaterally multiple deformities noted in the hands and feet bilaterally. Chronic. Superficial he is also was noted also in the hands and feet bilaterally. - Psychiatric Psychiatric: A&O x's 3, appropriate affect - Labs CBC & Chem 7: 01/16/18 04:39 01/16/18 04:39 Labs: Abnormal Lab Results - Last 24 Hours (Table) 01/15/18 01/16/18 01/16/18 Range/Units 14:46 04:39 04:39 Hgb 10.1 L (11.4-16.0) gm/dL MCH 23.6 L (25.0-35.0) pg MCHC 28.4 L (31.0-37.0) g/dL RDW 20.8 H (11.5-15.5) % Neutrophils # 8.1 H (1.3-7.7) k/uL Lymphocytes # 0.5 L (1.0-4.8) k/uL ABG pCO2 60 H (35-45) mmHg ABG pO2 63 L (83-108) mmHg ABG HCO3 33 H (21-25) mmol/L ABG Total CO2 35 H (19-24) mmol/L ABG O2 Saturation 90.9 L (94-97) % Sodium 134 L (137-145) mmol/L BUN 23 H (7-17) mg/dL Glucose 68 L (74-99) mg/dL Microbiology - Last 24 Hours (Table) 01/14/18 20:47 Urine Culture - Final Urine,Catheterized 01/14/18 15:30 Blood Culture - Preliminary Blood No Growth after 24 hours Assessment and Plan Assessment: Impression: 1Acute on chronic hypoxic and hypercapnic respiratory failure secondary to severe pulmonary hypertension, COPD, obstructive sleep apnea syndrome, and 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 2 acute urinary tract infection, cultures are pending, continue Zosyn in the meantime. 3 severe secondary pulmonary hypertension as noted above. 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 6 chronic generalized anxiety disorder. 7 hypothyroidism, peripheral neuropathy, hyperlipidemia, GERD without esophagitis, medical debility, Recommendation: Continue present supportive care measures, continue empiric antibiotics for now, BiPAP as needed which I have utilized early this morning now the patient is back on nasal cannula. Transfer patient out of the ICU, will continue to follow. Time with Patient: Less than 30
[2018-01-16] MEDS ORDERED: SODIUM CHLORIDE 0.9% NEBULIZ 3 ML INHALATION ONE (20:04)
[2018-01-16] MEDS: LEVOFLOXACIN 500MG-D5W PMX 500 MG in DEXTROSE/WATER 1 100ML.BAG IVPB SCH (20:43)
[2018-01-16] MEDS: COLLAGENASE 250 UNIT/GM OINTMENT 30 GM TUBE TOPICAL SCH (20:48)
[2018-01-16] MEDS: MELATONIN 5 MG TABLET PO SCH (21:31)
[2018-01-16] MEDS: QUEtiapine 25 MG TAB PO SCH (21:31)
[2018-01-17] MEDS: HYDROcodone/APAP 7.5-325MG 1 EACH TAB PO PRN (04:17)
[2018-01-17 05:51] LABS: Anisocytosis Moderate; Basophils # (A) 0.1 k/uL (0-0.2); Basophils % (A) 1 %; Eosinophils # (A) 0.2 k/uL (0-0.7); Eosinophils % (A) 1 %; HCT 36.1 % (34.0-46.0); HGB 10.1 gm/dL (11.4-16.0); Hypochromasia Marked; Lymphocytes # (A) 0.9 k/uL (1.0-4.8); Lymphocytes % (A) 8 %; MCH 23.6 pg (25.0-35.0); MCHC 28.1 g/dL (31.0-37.0); MCV 83.9 fL (80.0-100.0); Mean Platelet Volume 6.6; Microcytosis Slight; Monocytes # (A) 0.5 k/uL (0-1.0); Monocytes % (A) 5 %; Neutrophils # (A) 8.6 k/uL (1.3-7.7); Neutrophils % (A) 83 %; Platelet Count 222 k/uL (150-450); RBC 4.31 m/uL (3.80-5.40); RDW 20.8 % (11.5-15.5); WBC 10.4 k/uL (3.8-10.6)
[2018-01-17 06:09] LABS: Calcium 8.6 mg/dL (8.4-10.2); Magnesium 1.7 mg/dL (1.6-2.3); Phosphorus 4.9 mg/dL (2.5-4.5); Potassium 3.9 mmol/L (3.5-5.1)
[2018-01-17] MEDS: ALPRAZolam 0.25 MG TAB PO SCH ×3 (06:25→22:32)
[2018-01-17 07:02] LABS: Glucose,Whole Blood 86 mg/dL (75-99)
--- NOTE | 2018-01-17 07:08 | PN ---
PROGRESS NOTE This patient has been admitted with acute hypoxic respiratory failure. The patient has a severe pulmonary hypertension and right ventricular dysfunction as well as right- sided enlargement. The patient's oxygen saturation is now maintained in the range of 90, blood pressure is 113/99 mmHg. Heart: S1 and S2 normal. Lungs are fairly clear to auscultation and percussion. Patient's urine output is improved and she is putting out about 40-50 mL of urine output. Patient's blood gases shows a pH of 7.36, pCO2 is 60, PO2 is 60 and a creatinine is 1.30. We will recommend to continue the patient on IV Lasix and Aldactone. MMODL / IJN: [id number] /
[2018-01-17] MEDS: LEVOTHYROXINE 125 MCG TAB PO SCH (07:23)
--- NOTE | 2018-01-17 07:54 | P.PN ---
Subjective Progress Note Date: 01/17/18 Principal diagnosis: CHF, COPD, rheumatoid arthritis Progress note dated 01/17/2018 77-year-old female admitted on January 14 with a diagnosis of acute on chronic hypoxemic and hypercapnic respiratory failure, secondary to severe pulmonary hypertension COPD sleep apnea syndrome and possible diaphragm paralysis and muscular weakness. The patient also has history of acute urinary tract infection hypertension, chronic medical debility, DJD, extremity weakness and deformities, generalized anxiety disorder, hypothyroidism, peripheral neuropathy , hyperlipidemia, GERD, and general medical debility. Currently, the patient is on 68 L high flow receiving a saline IV at 100 mL an hour. I did tell the nurse to turn it down to KVO. She seems okay today. I did try to discuss CODE STATUS with her. I don't know that she understands. We'll have to talk to the family member was in charge. Overall prognosis seems relatively poor should she end up on life support. Chest x-ray my opinion still shows a touch of fluid overload with blunting the costophrenic angles and some mild interstitial changes. Microbiology is negative thus far. Objective - Vital Signs Vital signs: Vital Signs Temp 98.2 F 01/17/18 00:00 Pulse 104 H 01/17/18 07:00 Resp 16 01/17/18 07:00 BP 98/59 01/17/18 00:00 Pulse Ox 91 L 01/17/18 06:00 Intake & Output 01/16/18 01/17/18 01/17/18 18:59 06:59 18:59 Intake Total 1300 1100 100 Output Total 454 682 25 Balance 846 418 75 Weight 89.6 kg Intake: IV 1200 1100 100 Sodium Chloride 0.9% 1, 1200 1100 100 000 ml @ 100 mls/hr IV . Q10H [facility]LA Rx#:[id number] Intake, IV Titration 100 Amount Piperacillin-Tazobactam 3 100 .375 gm In Dextrose/Water 1 50ml.bag @ 12.5 mls/hr IVPB Q8HR MARLA Rx#: [id number] Output: Urine 454 682 25 Other: Voiding Method Indwelling Catheter Indwelling Catheter - Exam No acute distress, oriented 3. Mild conversational dyspnea. Patient's nasal O2 noted. HEENT examination is grossly unremarkable. Mucous membranes are moist. No oral lesions. Neck supple. Full range of motion. No adenopathy thyromegaly or neck vein distention. Cardiovascular examination reveals regular rhythm rate. S1-S2 normal. No S3 or S4. No discernible murmur noted. Heart sounds are distant. Lungs reveal scattered rhonchi and crackles. Breath sounds equal bilaterally. Breath sounds are diminished. Abdomen soft bowel sounds are heard. No masses or tenderness. Extremities are deformed. No edema. Significant weakness of the lower extremities. Skin is without rash or lesion. Neurologic examination reveals generalized weakness of the extremities, lower greater than upper, without focal abnormality. - Labs CBC & Chem 7: 01/17/18 05:08 01/17/18 05:08 Labs: Abnormal Lab Results - Last 24 Hours (Table) 01/17/18 01/17/18 Range/Units 05:08 05:08 Hgb 10.1 L (11.4-16.0) gm/dL MCH 23.6 L (25.0-35.0) pg MCHC 28.1 L (31.0-37.0) g/dL RDW 20.8 H (11.5-15.5) % Neutrophils # 8.6 H (1.3-7.7) k/uL Lymphocytes # 0.9 L (1.0-4.8) k/uL Sodium 131 L (137-145) mmol/L Carbon Dioxide 21 L (22-30) mmol/L BUN 25 H (7-17) mg/dL Creatinine 1.10 H (0.52-1.04) mg/dL Glucose 64 L (74-99) mg/dL Phosphorus 4.9 H (2.5-4.5) mg/dL Microbiology - Last 24 Hours (Table) 01/14/18 15:30 Blood Culture - Preliminary Blood No Growth after 48 hours 01/14/18 20:47 Urine Culture - Final Urine,Catheterized Assessment and Plan Assessment: Assessment Acute on chronic hypoxemic and hypercapnic respiratory failure, multifactorial, in part related to severe pulmonary hypertension, COPD, sleep apnea syndrome, diaphragm weakness and generalized muscle weakness. Acute UTI Severe secondary pulmonary hypertension Essential hypertension Chronic medical debility with osteoarthritis and lower extremity weakness with deformity Generalized anxiety disorder Hypothyroidism Peripheral neuropathy. Hyperlipidemia GERD Plan: Plan dated 01/17/2018 CODE STATUS does need to be addressed as soon as possible. Thus far microbiology is negative. The patient remains on 68 L high flow oxygen and some saline IV. White count 10.4, hemoglobin 10.1, hematocrit 36.1, and platelet count normal. Sodium 131 CO2 21 BUN and creatinine were 25 and 1.10 respectively. Chest x-ray is stable but still shows a pattern of cardiomegaly and mild edema. Labs are reviewed. IV is turned on the KVO. Additional recommendations and suggestions are forthcoming. Prognosis is guarded. Critical care time 33 minutes Time with Patient: Greater than 30
[2018-01-17] MEDS: BUDESONIDE 1 MG/2 ML NEBU INHALATION SCH ×2 (08:07→19:40)
--- NOTE | 2018-01-17 08:07 | XR ---
EXAMINATION TYPE: XR chest 1V portable DATE OF EXAM: 01/17/2018 COMPARISON: 01/16/2018 INDICATION: Dyspnea TECHNIQUE: Single frontal view of the chest is obtained. FINDINGS: The heart size is mildly prominent. The pulmonary vasculature is normal. No suspicious infiltrates are evident. Advanced degenerative changes are at the bilateral shoulders. Correlate for rheumatoid arthritis. IMPRESSION: 1. No acute pulmonary process. 2. Advanced degenerative changes bilateral shoulders
[2018-01-17] MEDS: HEPARIN SODIUM,PORCINE 5,000 UNIT/ML 1 ML VIAL SQ SCH ×2 (08:15→15:38)
[2018-01-17] MEDS: PIPERACILLIN-TAZOBACTAM 3.375 GM in DEXTROSE/WATER 1 50ML.BAG IVPB SCH ×2 (08:15→15:38)
[2018-01-17] MEDS: ASPIRIN 81 MG PO SCH (08:17)
[2018-01-17] MEDS: CHOLECALCIFEROL 1,000 UNIT TAB PO SCH (08:17)
[2018-01-17] MEDS: GABAPENTIN 100 MG CAP PO SCH ×2 (08:18→22:33)
[2018-01-17] MEDS: FUROSEMIDE 10 MG/ML 4 ML VIAL IV SCH (08:18)
[2018-01-17] MEDS: DULoxetine HCL 60 MG CAPSULE.DR PO SCH ×2 (08:18→22:32)
[2018-01-17] MEDS: SENNOSIDES-DOCUSATE SODIUM 1 EACH TAB PO SCH ×2 (08:19→22:33)
[2018-01-17] MEDS: NYSTATIN 100,000 UNIT/ML SUSP 500,000 UNIT/5 ML CUP PO SCH ×4 (08:19→22:33)
[2018-01-17] MEDS: PANTOPRAZOLE 40 MG/10 ML VIAL IV SCH (08:19)
--- NOTE | 2018-01-17 08:57 | PN ---
PROGRESS NOTE DATE OF SERVICE: 01/17/2018. HISTORY: Ms. Garcia is a 77-year-old female who presented with symptoms of progressive dyspnea. She has a known history of chronic obstructive lung disease, obstructive sleep apnea, severe pulmonary hypertension. She presented with worsening dyspnea. She is awake, alert, feels better at this time. She has no symptoms of chest pain. She has no nausea or vomiting. She continued to be in sinus mechanism with stable rhythm. She was diagnosed with urinary tract infection on presentation. She has severe osteoarthritis and deformities related to that. She continues to be, at this time, on aspirin, colchicine, Lexapro, furosemide 40 mg IV every 12 hours, levothyroxine, loratadine, Protonix, piperacillin, and spironolactone. PHYSICAL EXAMINATION: Blood pressure in the high 90s with a heart rate in the high 90s, low 100s. LUNGS: No wheezes appreciated. No crackles. HEART: Regular rhythm S1, S2. No S3. Systolic murmur heard at the base, ejection type, 2/6. No diastolic murmur, no rub. ABDOMEN: Soft, nontender. Positive bowel sounds. No organomegaly. EXTREMITIES: +1 edema. IMPRESSION: 1. Respiratory failure in a patient with known history of severe pulmonary hypertension. She has a preserved systolic function with dilatation of the right ventricle by echocardiogram in the past 2. 2. Urinary tract infection. 3. Mild elevation of troponin representing a type 2 event. 4. Severe osteoarthritis. RECOMMENDATIONS: At this time, I will continue supportive care. If needed, she will get IV fluid if her blood pressure is low. Depending on her progress, further recommendations will be made regarding her renal function, if stable and her hemoglobin has been stable as well. MMODL / IJN: [id number] /
[2018-01-17] MEDS: ESCITALOPRAM 20 MG TAB PO SCH (09:07)
[2018-01-17] MEDS: ALLOPURINOL 300 MG TAB PO SCH (09:07)
[2018-01-17] MEDS: COLCHICINE 0.6 MG EACH PO SCH (09:07)
[2018-01-17] MEDS: SPIRONOLACTONE 25 MG TAB PO SCH (09:42)
[2018-01-17] MEDS: LORATADINE 10 MG TAB PO SCH (11:04)
[2018-01-17 11:20] LABS: ABG Base Excess -7.6 mmol/L; ABG HCO3 20 mmol/L (21-25); ABG Oxygen Saturation 89.3 % (94-97); ABG PCO2 47 mmHg (35-45); ABG PH 7.24 (7.35-7.45); ABG PO2 63 mmHg (83-108); ABG TCO2 21 mmol/L (19-24)
[2018-01-17 11:21] LABS: Glucose,Whole Blood 88 mg/dL (75-99)
[2018-01-17] MEDS: SODIUM CHLORIDE 0.9% 1,000 ML IV SCH ×2 (11:37→11:38)
--- NOTE | 2018-01-17 12:52 | P.PN ---
Subjective Progress Note Date: 01/17/18 77-year-old female patient of my patient currently residing at [facility] with past medical history COPD on 6 L Oxygen , hypertension, obstructive sleep apnea refusing BiPAP/CPAP nighttime, chronic pain, gastric esophageal reflux disease, hypothyroidism, ALLERGIC rhinitis, osteoarthritis, idiopathic peripheral autonomic neuropathy, chronic urinary tract infections, vitamin D deficiency, morbid obesity, bed bound for the past 13 years, h/o prolonged intubation leading to tracheostomy which was finally removed, has been bedbound ever seen , History of severe pulmonary hypertension with severe tricuspid regurgitation was seen last in September 2017 for worsening shortness of breath and was discharged on 6 L of oxygen. Patient was treated for abdominal pain and difficulty breathing in the last visit. CT imaging with concern for cholelithiasis in the distal common duct and fecal impaction was seen. Patient also had a urinary tract infection with Proteus and was treated with Rocephin. Patient also received GoLYTELY treatment for her chronic constipation. Patient was transferred to the emergency room secondary to increasing shortness of breath, no significant cough , blood gas obtained at room air suggestive pO2 of 31. Patient was transferred to the ICU and was placed on BiPAP overnight. On my assessment this morning patient is doing well she is saturating in the low 90s on 6 L of oxygen. Systolic Blood pressure documented to be in the low 70s. Patient received 80 mg of IV Lasix in the ER as patient has high BNP with no urine output. His blood pressure was reportedly low patient was given 2 L of IV fluids followed by a 500 bolus this morning. Patient has contractures bilaterally lower extremity as well as upper extremity for being bedbound and has falls blood pressure readings on the blood pressure cough. Patient on examination appears to be dry and dehydrated. Urine output has improved with IV fluids. Vitals this morning suggestive blood pressure of 108/43, pulse of 101, respiratory rate 24 on BiPAP 92%. Currently on high flow of 6 L oxygen saturating well at 96-100%. Blood pressure cough reading of 67/51 is also as patient has good pulsation and is alert and oriented. Unable to get good blood pressure with cough readings. Labs obtained in the ER suggestive of hemoglobin of 11.6 leukocyte 10.2, INR 1.1, pO2 31 and CO2 47. Sodium 133 chloride 90, glucose 122 and creatinine 1. Troponin 3 were elevated though cardiology evaluated troponin anemia in the past with echocardiogram and has ruled out ACS in the past. Ideology and pulmonary consulted for help with pulmonary hypertension and hypoxia and increased BNP. Urinalysis is positive for leukocyte esterase. WBC and hyaline cast 01/16 patient is more awake and alert still requiring 6 L of high flow oxygen. Blood pressure stable with IV fluids running at 100 mL/h. Patient initiated on Lasix and Aldactone to help with urine output. Patient is maintaining a 30-40 mL per hour of urine output. Urine cultures are still pending continue Zosyn. 01/17: Patient remains in the intensive care unit. She is currently on 10 L high flow will be switched over to BiPAP. ABGs obtained and to be reviewed with Dr. Russ. Discussed patient's condition and CODE STATUS with her daughter and she is uncomfortable making decision [place] DO NOT RESUSCITATE. She will come in the hospital and encouraged her mother to use a mask. IV fluids have been stopped and patient is on IV Lasix 40 mg twice daily. White count is at 10.4, hemoglobin 10.1, BUN 25 and creatinine 1.1. Sodium is 131, blood sugars morning was 64. The culture showing no growth after 48 hours and urine cultures been finalized with no growth. Patient's overall condition is deteriorating. Objective - Vital Signs Vital signs: Vital Signs Temp 98 F 01/17/18 08:00 Pulse 112 H 01/17/18 08:18 Resp 19 01/17/18 08:00 BP 115/101 01/17/18 08:00 Pulse Ox 93 L 01/17/18 08:00 Intake & Output 01/16/18 01/17/18 01/17/18 18:59 06:59 18:59 Intake Total 1300 1100 100 Output Total 454 682 25 Balance 846 418 75 Weight 89.6 kg Intake: IV 1200 1100 100 Sodium Chloride 0.9% 1, 1200 1100 100 000 ml @ 100 mls/hr IV . Q10H [facility] Rx#:[id number] Intake, IV Titration 100 Amount Piperacillin-Tazobactam 3 100 .375 gm In Dextrose/Water 1 50ml.bag @ 12.5 mls/hr IVPB Q8HR [facility] Rx#: [id number] Output: Urine 454 682 25 Other: Voiding Method Indwelling Catheter Indwelling Catheter - Exam - Constitutional General appearance: average body habitus, cooperative, obese - EENT Eyes: EOMI, PERRLA, poor dentition, lips slightly dusky ENT: hearing grossly normal - Neck Neck: no lymphadenopathy, normal ROM, no rigidity Carotids: bilateral: upstroke normal Thyroid: bilateral: normal size - Respiratory Respiratory: bilateral: diminished, dullness, negative: rales, rhonchi, wheezing - Cardiovascular Rhythm: regular Heart sounds: normal: S1, S2 Abnormal Heart Sounds: systolic murmur systolic murmur (2) Location: left sternal border Grade: III/ ankle Peripheral Edema: bilateral: None dorsalis pedis Peripheral Pulses: bilateral: Normal - Gastrointestinal General gastrointestinal: normal bowel sounds, soft, no tenderness - Integumentary Integumentary: no cellulitis, no cyanotic, normal turgor - Neurologic Neurologic: CNII-XII intact (Bedbound has diffuse contractures both bilaterally upper and lower extremity) - Musculoskeletal Musculoskeletal: generalized weakness, strength equal bilaterally - Psychiatric Psychiatric: A&O x's 2, appropriate affect - Labs CBC & Chem 7: 01/17/18 05:08 01/17/18 05:08 Labs: Abnormal Lab Results - Last 24 Hours (Table) 01/17/18 01/17/18 Range/Units 05:08 05:08 Hgb 10.1 L (11.4-16.0) gm/dL MCH 23.6 L (25.0-35.0) pg MCHC 28.1 L (31.0-37.0) g/dL RDW 20.8 H (11.5-15.5) % Neutrophils # 8.6 H (1.3-7.7) k/uL Lymphocytes # 0.9 L (1.0-4.8) k/uL Sodium 131 L (137-145) mmol/L Carbon Dioxide 21 L (22-30) mmol/L BUN 25 H (7-17) mg/dL Creatinine 1.10 H (0.52-1.04) mg/dL Glucose 64 L (74-99) mg/dL Phosphorus 4.9 H (2.5-4.5) mg/dL Microbiology - Last 24 Hours (Table) 01/14/18 15:30 Blood Culture - Preliminary Blood No Growth after 48 hours 01/14/18 20:47 Urine Culture - Final Urine,Catheterized Assessment and Plan Plan: 1. Acute on chronic hypoxemic respiratory failure with hypercarbic respiratory failure secondary to pulmonary hypertension, acute on chronic diastolic CHF, restrictiion in diaphragmatic excursion secondary to abdominal distention from chronic constipation, [place], pulmonary hypertension continue nebulized albuterol Atrovent, O2 at 10 L high flow switched to Bipap. Continue levofloxacin and Zosyn 2. Chronic constipation. Initiate patient on senna, Colace, GoLYTELY can be given intermittently as needed for patient refused multiple colonoscopies in the past refused enemas up she might benefit fromAmitiza 3. Recurrent dysphagia and early satiety without any aspirative events, history of GERD, and recurrent epigastric abdominal pain, EGD was discussed with the patient and is agreeable to this 4. Acute urinary tract infection with Proteus mirabilis growing on the most recent urine culture, continue Zosyn. Urine culture pending 5. Elevated troponin Previous echocardiogram performed July 2017 EF 55-60% right ventricular enlargement moderate,, continue on beta blockers, aspirin, blood pressure low but appears to be false reading due to mismatch and blood pressure cough. Cardiology evaluation pending. No EKG changes to suspect ST elevation [place] 6 obesity with hypoventilation syndrome and obstructive sleep apnea noncompliant with CPAP on the retirement, chronic hypercarbia, on O2 6 L maintenance in retirement, currently receiving 6 L nasal cannula. 7 Severe secondary pulmonary hypertension from obstructive sleep apnea, noncompliant to CPAP machine, 8 Acute on chronic diastolic heart failure. Continue Toprol-XL 25 mg orally once every day, hold Lasix , IV Lasix given in the ER, BNP is significantly evelated, but no overt heart failure on imaging no evidence of pleural effusion or pericardial effusion, continue to monitor input and output and daily weight Ventricle systolic pressure of 90 moderate to severe TR 9 Medical debility, bedbound . Physical therapy evaluation, discharge to [facility] once patient stabilizes 10 GERD. Continue Protonix 40 mg orally once every day. 11 Hypertension and hypertensive cardiovascular disease. Continue Toprol-XL 25 mg orally once every day, amlodipine 5 mg orally once every day. 12 Hyperlipidemia. Low-cholesterol diet. 13 Hypothyroidism. Continue Synthroid 125 g orally once every day. 14 Peripheral neuropathy. Continue gabapentin 200 mg orally twice every day. 15 Depressive disorder. Continue patient on Cymbalta 60 mg orally once every day and Lexapro 10 mg orally once every day. 16 . Osteoarthritis with joint deformities including the right hand as well as bilateral lower extremity's. History of prolonged hospitialisation including intubation with developmont of significant paraparesis of both lower extremities with significant deformity of the right wrist. 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 Continue patient on Lexapro 20 mg orally once every day. On weaning doses of Seroquel 12.5 mg every day 18. ALLERGIC rhinitis. Continue patient on Claritin 10 mg orally once every day. 19. DVT prophylaxis. heparin q12 15. GI prophylaxis. Continue Protonix 40 mg orally once every day. 16. Patient is full code. Discussed CODE STATUS with patient's daughter. 17. History of choledocholithiasis in the previous admission which was managed supportively. ERCP and MRCP was not done as patient's LFTs improved by itself Discharge plan: To be determined Impression and plan of care have been directed as dictated by the signing physician. Mary Souza nurse practitioner acting as scribe for signing physician.
[2018-01-17] MEDS ORDERED: SODIUM CHLORIDE 0.9% 500 ML IV ONE (13:08)
[2018-01-17] MEDS: NOREPINEPHRINE 4 MG in SODIUM CHLORIDE 0.9% 250 ML IV SCH (16:35)
[2018-01-17] MEDS ORDERED: LEVOFLOXACIN 250MG-D5W PMX 250 MG in DEXTROSE/WATER 1 50ML.BAG IVPB SCH (20:00)
[2018-01-17] MEDS ORDERED: ONDANSETRON 4 MG/2 ML VIAL IVP PRN (21:13)
[2018-01-17] MEDS: COLLAGENASE 250 UNIT/GM OINTMENT 30 GM TUBE TOPICAL SCH (22:00)
[2018-01-17] MEDS: QUEtiapine 25 MG TAB PO SCH (22:33)
[2018-01-17] MEDS: MELATONIN 5 MG TABLET PO SCH (22:33)
[2018-01-17 22:45] VITALS: BP 69/47
[2018-01-18] MEDS: HEPARIN SODIUM,PORCINE 5,000 UNIT/ML 1 ML VIAL SQ SCH ×3 (01:00→14:39)
[2018-01-18] MEDS: PIPERACILLIN-TAZOBACTAM 3.375 GM in DEXTROSE/WATER 1 50ML.BAG IVPB SCH ×3 (01:01→14:40)
[2018-01-18 04:52] LABS: Glucose,Whole Blood 39 mg/dL (75-99)
[2018-01-18] MEDS: LEVOTHYROXINE 125 MCG TAB PO SCH (05:26)
[2018-01-18] MEDS: DEXTROSE 50%-WATER 50 ML SYRINGE IVP ONE ×2 (05:26→12:07)
[2018-01-18 05:31] LABS: Glucose,Whole Blood 121 mg/dL (75-99)
[2018-01-18 05:34] LABS: Calcium 8.7 mg/dL (8.4-10.2); Potassium 4.6 mmol/L (3.5-5.1)
[2018-01-18 05:43] LABS: Phosphorus 8.1 mg/dL (2.5-4.5)
[2018-01-18 06:12] LABS: Anisocytosis Moderate; HCT 41.7 % (34.0-46.0); HGB 11.2 gm/dL (11.4-16.0); Hypochromasia Marked; MCH 23.4 pg (25.0-35.0); MCV 86.8 fL (80.0-100.0); Mean Platelet Volume 8.6; Microcytosis Slight; Platelet Count 221 k/uL (150-450)
--- NOTE | 2018-01-18 07:12 | XR ---
EXAMINATION TYPE: XR chest 1V DATE OF EXAM: 01/18/2018 COMPARISON: 01/17/2018 HISTORY: 77 year-old female shortness of breath TECHNIQUE: Single frontal view of the chest is obtained. FINDINGS: Patient's chin projects at the thoracic inlet. Borderline heart size. Low lung volumes and cardiovasc ular markings. Minimal patchy peripheral basilar density. Advanced degenerative changes at both shoul ders. IMPRESSION: Continued hypoventilatory changes. There is some minimal opacity peripheral left base, possible trace effusion.
[2018-01-18 07:13] LABS: Band Neutrophils % 7 %; Metamyelocytes % 1 %; Myelocytes % 1 %; Neutrophils % (M) 79 %; Nucleated Red Blood Cells 7 /100 WBC (0-0); Total Cells Counted 200
[2018-01-18 07:14] LABS: Lymphocytes # (M) 0.79 k/uL (1.0-4.8); Monocytes # (M) 1.97 k/uL (0-1.0); Polychromasia Present; WBC 19.7 k/uL (3.8-10.6)
[2018-01-18 07:15] LABS: Toxic Vacuolation Present
[2018-01-18 07:19] LABS: Poikilocytosis (M) Present; RBC Fragments Present
[2018-01-18 07:22] LABS: Large Platelets Present
[2018-01-18] MEDS: NOREPINEPHRINE 4 MG in SODIUM CHLORIDE 0.9% 250 ML IV SCH ×7 (08:00→14:25)
--- NOTE | 2018-01-18 08:28 | P.PN ---
Subjective Progress Note Date: 01/18/18 Principal diagnosis: CHF, COPD, rheumatoid arthritis Progress note dated 01/17/2018 77-year-old female admitted on January 14 with a diagnosis of acute on chronic hypoxemic and hypercapnic respiratory failure, secondary to severe pulmonary hypertension COPD sleep apnea syndrome and possible diaphragm paralysis and muscular weakness. The patient also has history of acute urinary tract infection hypertension, chronic medical debility, DJD, extremity weakness and deformities, generalized anxiety disorder, hypothyroidism, peripheral neuropathy , hyperlipidemia, GERD, and general medical debility. Currently, the patient is on 68 L high flow receiving a saline IV at 100 mL an hour. I did tell the nurse to turn it down to KVO. She seems okay today. I did try to discuss CODE STATUS with her. I don't know that she understands. We'll have to talk to the family member was in charge. Overall prognosis seems relatively poor should she end up on life support. Chest x-ray my opinion still shows a touch of fluid overload with blunting the costophrenic angles and some mild interstitial changes. Microbiology is negative thus far. Progress note dated 01/18/2018 77-year-old female admitted back on January 14 with a diagnosis of acute on chronic hypoxemic and hypercapnic respiratory failure. She has a history of severe pulmonary hypertension, COPD, sleep apnea syndrome and diaphragm weakness as well as general medical debility and diffuse body weakness. She also has a history of acute urinary tract infection, hypertension chronic medical debility DJD extremity weakness and deformities generalized anxiety disorder hypothyroidism peripheral neuropathy hyperlipidemia GERD and a whole host of other medical issues. Currently, she is on BiPAP with an IPAP of 12 and EPAP of 4, 60% FiO2. She's been on that throughout the night. Her respiratory status is certainly declined. In addition, she getting a saline IV at KVO and her norepinephrine doses resumed all the way up to 45 mcg/m. I told the nurses not to go any higher. Chest x-ray shows small lung volumes. She is a DO NOT RESUSCITATE. I just talked to the daughter. They're contemplating possible comfort measures. I explained to her what that matter. She thinks her and her sister would agree to that as the patient has previously expressed that she would not want to continue on active treatment should she likely not get better. I do not with the patient pre-much all night dealing with issues of respiratory status and blood pressure issues. Objective - Vital Signs Vital signs: Vital Signs Temp 98.9 F 01/18/18 04:00 Pulse 129 H 01/18/18 07:00 Resp 30 H 01/18/18 07:00 BP 69/47 01/17/18 21:00 Pulse Ox 90 L 01/18/18 07:00 Intake & Output 01/17/18 01/18/18 01/18/18 18:59 06:59 18:59 Intake Total 965.375 764.625 Output Total 210 66 Balance 755.375 698.625 Weight 92.397 kg Intake: IV 890 290 0.9 240 Levofloxacin 500Mg-D5w 50 Pmx 500 mg In Dextrose/ Water 1 100ml.bag @ 100 mls/hr IVPB Q24H [facility] Rx#: [id number] Piperacillin-Tazobactam 3 50 .375 gm In Dextrose/Water 1 50ml.bag @ 12.5 mls/hr IVPB Q8HR [facility] Rx#: [id number] Sodium Chloride 0.9% 1, 340 000 ml @ 100 mls/hr IV . Q10H [facility] Rx#:[id number] Sodium Chloride 0.9% 500 500 ml @ 999 mls/hr IV .Q31M [facility] Rx#:[id number] Intake, IV Titration 75.375 474.625 Amount Norepinephrine 4 mg In 75.375 424.625 Sodium Chloride 0.9% 250 ml @ Titrate IV .Q0M [facility] Rx#:[id number] Piperacillin-Tazobactam 3 50 .375 gm In Dextrose/Water 1 50ml.bag @ 12.5 mls/hr IVPB Q8HR [facility] Rx#: [id number] Output: Urine 210 66 Other: Voiding Method Indwelling Catheter Indwelling Catheter Indwelling Catheter - Exam No acute distress, very poorly responsive, short of breath with tachypnea, with the BiPAP mask in place. HEENT examination is grossly unremarkable. Mucous membranes are dry with no obvious oral lesions. Neck supple. Full range of motion. No adenopathy thyromegaly or neck vein distention. Cardiovascular examination reveals regular rhythm rate. S1-S2 normal. No S3 or S4. No discernible murmur noted. Heart sounds are distant. Heart rate is 126. Lungs reveal scattered rhonchi and crackles. Breath sounds equal bilaterally. Breath sounds are diminished. Abdomen soft bowel sounds are heard. No masses or tenderness. Extremities are deformed. No edema. Significant weakness of the lower extremities. There is some mottling of the lower extremities with livedo reticularis. Skin is without rash or lesion. Neurologic examination is very difficult to assess today. - Labs CBC & Chem 7: 01/18/18 04:47 01/18/18 04:47 Labs: Abnormal Lab Results - Last 24 Hours (Table) 01/17/18 01/18/18 01/18/18 Range/Units 11:18 04:47 04:47 WBC 19.7 H (3.8-10.6) k/uL Hgb 11.2 L (11.4-16.0) gm/dL MCH 23.4 L (25.0-35.0) pg MCHC 27.0 L (31.0-37.0) g/dL RDW 21.0 H (11.5-15.5) % Neutrophils # (Manual) 16.90 H (1.3-7.7) k/uL Lymphocytes # (Manual) 0.79 L (1.0-4.8) k/uL Monocytes # (Manual) 1.97 H (0-1.0) k/uL Metamyelocytes # (Man) 0.20 H (0) k/uL Myelocytes # (Manual) 0.20 H (0) k/uL Nucleated RBCs 7 H (0-0) /100 WBC ABG pH 7.24 L (7.35-7.45) ABG pCO2 47 H (35-45) mmHg ABG pO2 63 L (83-108) mmHg ABG HCO3 20 L (21-25) mmol/L ABG O2 Saturation 89.3 L (94-97) % Sodium 133 L (137-145) mmol/L Carbon Dioxide 15 L (22-30) mmol/L BUN 29 H (7-17) mg/dL Creatinine 1.60 H (0.52-1.04) mg/dL Glucose 47 L* (74-99) mg/dL POC Glucose (mg/dL) (75-99) mg/dL Phosphorus 8.1 H* (2.5-4.5) mg/dL 01/18/18 01/18/18 Range/Units 04:50 05:29 WBC (3.8-10.6) k/uL Hgb (11.4-16.0) gm/dL MCH (25.0-35.0) pg MCHC (31.0-37.0) g/dL RDW (11.5-15.5) % Neutrophils # (Manual) (1.3-7.7) k/uL Lymphocytes # (Manual) (1.0-4.8) k/uL Monocytes # (Manual) (0-1.0) k/uL Metamyelocytes # (Man) (0) k/uL Myelocytes # (Manual) (0) k/uL Nucleated RBCs (0-0) /100 WBC ABG pH (7.35-7.45) ABG pCO2 (35-45) mmHg ABG pO2 (83-108) mmHg ABG HCO3 (21-25) mmol/L ABG O2 Saturation (94-97) % Sodium (137-145) mmol/L Carbon Dioxide (22-30) mmol/L BUN (7-17) mg/dL Creatinine (0.52-1.04) mg/dL Glucose (74-99) mg/dL POC Glucose (mg/dL) 39 L 121 H (75-99) mg/dL Phosphorus (2.5-4.5) mg/dL Microbiology - Last 24 Hours (Table) 01/14/18 15:30 Blood Culture - Preliminary Blood No Growth after 72 hours Assessment and Plan Assessment: Assessment Acute on chronic hypoxemic and hypercapnic respiratory failure, multifactorial, in part related to severe pulmonary hypertension, COPD, sleep apnea syndrome, diaphragm weakness and generalized muscle weakness. Worsening respiratory status, currently BiPAP dependent Profound hypotension requiring high doses of norepinephrine Acute UTI Severe secondary pulmonary hypertension Essential hypertension Chronic medical debility with osteoarthritis and lower extremity weakness with deformity Generalized anxiety disorder Hypothyroidism Peripheral neuropathy. Hyperlipidemia GERD Plan: Plan dated 01/17/2018 CODE STATUS does need to be addressed as soon as possible. Thus far microbiology is negative. The patient remains on 68 L high flow oxygen and some saline IV. White count 10.4, hemoglobin 10.1, hematocrit 36.1, and platelet count normal. Sodium 131 CO2 21 BUN and creatinine were 25 and 1.10 respectively. Chest x-ray is stable but still shows a pattern of cardiomegaly and mild edema. Labs are reviewed. IV is turned on the KVO. Additional recommendations and suggestions are forthcoming. Prognosis is guarded. Critical care time 33 minutes Plan dated 01/18/2018 CODE STATUS was addressed yesterday. She is now a DO NOT RESUSCITATE. Chest x- ray shows small lung volumes and atelectasis at the bases particularly on the right side. I did have a long conversation with the daughter. She is contemplating comfort measures. I explained in detail what that meant. Laboratory data reveals a white count of 19.7 hemoglobin 1.2 hematocrit 41.7 and platelet count 221,000. Sodium is 133 potassium 4.6 chloride 101 CO2 15 anion gap is 17 BUN and creatinine were 29 and 1.60. Phosphorus 8.1. Medications are reviewed. There were some changes made last night by me. Overall prognosis is very poor. The family may transition to comfort measures. We'll await their decision. Critical care time 34 minutes Time with Patient: Greater than 30
[2018-01-18] MEDS: PANTOPRAZOLE 40 MG/10 ML VIAL IV SCH (08:31)
[2018-01-18] MEDS: GABAPENTIN 100 MG CAP PO SCH (08:32)
[2018-01-18] MEDS: DULoxetine HCL 60 MG CAPSULE.DR PO SCH (08:32)
[2018-01-18] MEDS: CHOLECALCIFEROL 1,000 UNIT TAB PO SCH (08:32)
[2018-01-18] MEDS: ESCITALOPRAM 20 MG TAB PO SCH (08:32)
[2018-01-18] MEDS: ASPIRIN 81 MG PO SCH (08:32)
[2018-01-18] MEDS: NYSTATIN 100,000 UNIT/ML SUSP 500,000 UNIT/5 ML CUP PO SCH ×3 (08:32→14:40)
[2018-01-18] MEDS: COLCHICINE 0.6 MG EACH PO SCH (08:32)
[2018-01-18 09:18] VITALS: TEMP 100.5
--- NOTE | 2018-01-18 09:45 | ECHOF ---
Referral Reason:LV function MEASUREMENTS -------- HEIGHT: 167.6 cm WEIGHT: 77.6 kg BP: 104/47 RVIDd: 3.9 cm (< 3.3) IVSd: 1.6 cm (0.6 - 1.1) LVIDd: 2.7 cm (3.9 - 5.3) LVPWd: 1.5 cm (0.6 - 1.1) IVSs: 1.5 cm LVIDs: 2.2 cm LVPWs: 2.1 cm LA Diam: 2.0 cm (2.7 - 3.8) Ao Diam: 2.8 cm (2.0 - 3.7) AV Cusp: 1.9 cm (1.5 - 2.6) MV EXCURSION: 22.169 mm (> 18.000) MV EF SLOPE: 52 mm/s (70 - 150) EPSS: 0.5 cm MV E Danie: 0.65 m/s MV DecT: 291 ms MV A Danie: 0.99 m/s MV E/A Ratio: 0.65 RAP: 5.00 mmHg RVSP: 79.94 mmHg FINDINGS -------- Sinus rhythm with extra systolic beats. This was a technically adequate study. The left ventricular size is normal. There is moderate concentric left ventricular hypertrophy. O verall left ventricular systolic function is low-normal with, an EF between 50 - 55 %. There is sep sarai flattening in diastole and systole which is consistent with right ventricular pressure and volume overload. The right ventricle is moderately enlarged. The left atrial size is normal. The right atrium is normal in size. There is mild aortic valve sclerosis. There is trace to mild mitral regurgitation. Severe tricuspid regurgitation present. There is severe pulmonary hypertension. The right ventric ular systolic pressure, as measured by Doppler, is 79.94mmHg. There is no pulmonic regurgitation present. The aortic root size is normal. IVC Not well visulized. There is no pericardial effusion. CONCLUSIONS -------- 1. Sinus rhythm with extra systolic beats. 2. This was a technically adequate study. 3. The left ventricular size is normal. 4. There is moderate concentric left ventricular hypertrophy. 5. Overall left ventricular systolic function is low-normal with, an EF between 50 - 55 %. 6. There is septal flattening in diastole and systole which is consistent with right ventricular pres sure and volume overload. 7. The right ventricle is moderately enlarged. 8. The left atrial size is normal. 9. The right atrium is normal in size. 10. There is mild aortic valve sclerosis. 11. There is trace to mild mitral regurgitation. 12. Severe tricuspid regurgitation present. 13. There is severe pulmonary hypertension. 14. The right ventricular systolic pressure, as measured by Doppler, is 79.94mmHg. 15. There is no pulmonic regurgitation present. 16. The aortic root size is normal. 17. IVC Not well visulized. 18. There is no pericardial effusion. APRON CLEANER: Arleen Lomax RDCS
[2018-01-18 11:54] LABS: Glucose,Whole Blood 40 mg/dL (75-99)
[2018-01-18] MEDS ORDERED: DEXTROSE 50%-WATER 50 ML SYRINGE IVP STA (12:04)
[2018-01-18] MEDS ORDERED: DEXTROSE 50%-WATER 50 ML SYRINGE IVP ONE (12:05)
[2018-01-18] MEDS: SODIUM CHLORIDE 0.9% 1,000 ML IV SCH (12:08)
[2018-01-18 12:38] LABS: Glucose,Whole Blood 98 mg/dL (75-99)
[2018-01-18 14:18] VITALS: PULSE 121; RESP 30
--- NOTE | 2018-01-18 14:44 | P.PN ---
Subjective Progress Note Date: 01/18/18 77-year-old female patient of my patient currently residing at [facility] with past medical history COPD on 6 L Oxygen , hypertension, obstructive sleep apnea refusing BiPAP/CPAP nighttime, chronic pain, gastric esophageal reflux disease, hypothyroidism, ALLERGIC rhinitis, osteoarthritis, idiopathic peripheral autonomic neuropathy, chronic urinary tract infections, vitamin D deficiency, morbid obesity, bed bound for the past 13 years, h/o prolonged intubation leading to tracheostomy which was finally removed, has been bedbound ever seen , History of severe pulmonary hypertension with severe tricuspid regurgitation was seen last in September 2017 for worsening shortness of breath and was discharged on 6 L of oxygen. Patient was treated for abdominal pain and difficulty breathing in the last visit. CT imaging with concern for cholelithiasis in the distal common duct and fecal impaction was seen. Patient also had a urinary tract infection with Proteus and was treated with Rocephin. Patient also received GoLYTELY treatment for her chronic constipation. Patient was transferred to the emergency room secondary to increasing shortness of breath, no significant cough , blood gas obtained at room air suggestive pO2 of 31. Patient was transferred to the ICU and was placed on BiPAP overnight. On my assessment this morning patient is doing well she is saturating in the low 90s on 6 L of oxygen. Systolic Blood pressure documented to be in the low 70s. Patient received 80 mg of IV Lasix in the ER as patient has high BNP with no urine output. His blood pressure was reportedly low patient was given 2 L of IV fluids followed by a 500 bolus this morning. Patient has contractures bilaterally lower extremity as well as upper extremity for being bedbound and has falls blood pressure readings on the blood pressure cough. Patient on examination appears to be dry and dehydrated. Urine output has improved with IV fluids. Vitals this morning suggestive blood pressure of 108/43, pulse of 101, respiratory rate 24 on BiPAP 92%. Currently on high flow of 6 L oxygen saturating well at 96-100%. Blood pressure cough reading of 67/51 is also as patient has good pulsation and is alert and oriented. Unable to get good blood pressure with cough readings. Labs obtained in the ER suggestive of hemoglobin of 11.6 leukocyte 10.2, INR 1.1, pO2 31 and CO2 47. Sodium 133 chloride 90, glucose 122 and creatinine 1. Troponin 3 were elevated though cardiology evaluated troponin anemia in the past with echocardiogram and has ruled out ACS in the past. Ideology and pulmonary consulted for help with pulmonary hypertension and hypoxia and increased BNP. Urinalysis is positive for leukocyte esterase. WBC and hyaline cast 01/16 patient is more awake and alert still requiring 6 L of high flow oxygen. Blood pressure stable with IV fluids running at 100 mL/h. Patient initiated on Lasix and Aldactone to help with urine output. Patient is maintaining a 30-40 mL per hour of urine output. Urine cultures are still pending continue Zosyn. 01/17: Patient remains in the intensive care unit. She is currently on 10 L high flow will be switched over to BiPAP. ABGs obtained and to be reviewed with Dr. Russ. Discussed patient's condition and CODE STATUS with her daughter and she is uncomfortable making decision Moreira DO NOT RESUSCITATE. She will come in the hospital and encouraged her mother to use a mask. IV fluids have been stopped and patient is on IV Lasix 40 mg twice daily. White count is at 10.4, hemoglobin 10.1, BUN 25 and creatinine 1.1. Sodium is 131, blood sugars morning was 64. The culture showing no growth after 48 hours and urine cultures been finalized with no growth. Patient's overall condition is deteriorating. 01/18: She continues to deteriorate. She has had low urine output and continues to be hypotensive and on levo at 45 mics. Arterial line was attempted last night by anesthesia which was unsuccessful. Blood sugar this morning was 39 and patient was given dextrose 50%. During the night, patient was made no code. Discussed with family the need for comfort care at this point. Await family decision. Objective - Vital Signs Vital signs: Vital Signs Temp 98.9 F 01/18/18 04:00 Pulse 129 H 01/18/18 07:00 Resp 30 H 01/18/18 07:00 BP 69/47 01/17/18 21:00 Pulse Ox 90 L 01/18/18 07:00 Intake & Output 01/17/18 01/18/18 01/18/18 18:59 06:59 18:59 Intake Total 965.375 764.625 Output Total 210 66 Balance 755.375 698.625 Weight 92.397 kg Intake: IV 890 290 0.9 240 Levofloxacin 500Mg-D5w 50 Pmx 500 mg In Dextrose/ Water 1 100ml.bag @ 100 mls/hr IVPB Q24H [facility] Rx#: [id number] Piperacillin-Tazobactam 3 50 .375 gm In Dextrose/Water 1 50ml.bag @ 12.5 mls/hr IVPB Q8HR [facility] Rx#: [id number] Sodium Chloride 0.9% 1, 340 000 ml @ 100 mls/hr IV . Q10H [facility] Rx#:[id number] Sodium Chloride 0.9% 500 500 ml @ 999 mls/hr IV .Q31M [facility] Rx#:[id number] Intake, IV Titration 75.375 474.625 Amount Norepinephrine 4 mg In 75.375 424.625 Sodium Chloride 0.9% 250 ml @ Titrate IV .Q0M [facility] Rx#:[id number] Piperacillin-Tazobactam 3 50 .375 gm In Dextrose/Water 1 50ml.bag @ 12.5 mls/hr IVPB Q8HR [facility] Rx#: [id number] Output: Urine 210 66 Other: Voiding Method Indwelling Catheter Indwelling Catheter Indwelling Catheter - Exam - Constitutional General appearance: average body habitus, cooperative, obese - EENT Eyes: EOMI, PERRLA, poor dentition, lips slightly dusky ENT: hearing grossly normal - Neck Neck: no lymphadenopathy, normal ROM, no rigidity Carotids: bilateral: upstroke normal Thyroid: bilateral: normal size - Respiratory Respiratory: bilateral: diminished, dullness, accessory muscle usage negative: rales, rhonchi, wheezing - Cardiovascular Rhythm: regular Heart sounds: normal: S1, S2 Abnormal Heart Sounds: systolic murmur systolic murmur (2) Location: left sternal border Grade: III/ ankle Peripheral Edema: bilateral: None dorsalis pedis Peripheral Pulses: bilateral: Normal - Gastrointestinal General gastrointestinal: normal bowel sounds, soft, no tenderness - Integumentary Integumentary: no cellulitis, no cyanotic, normal turgor - Neurologic Neurologic: CNII-XII intact (Bedbound has diffuse contractures both bilaterally upper and lower extremity) - Musculoskeletal Musculoskeletal: generalized weakness, strength equal bilaterally - Psychiatric Psychiatric: A&O x's 1, no appropriate affect - Labs CBC & Chem 7: 01/18/18 04:47 01/18/18 04:47 Labs: Abnormal Lab Results - Last 24 Hours (Table) 0901/18/18 01/18/18 Range/Units 11:18 04:47 04:47 WBC 19.7 H (3.8-10.6) k/uL Hgb 11.2 L (11.4-16.0) gm/dL MCH 23.4 L (25.0-35.0) pg MCHC 27.0 L (31.0-37.0) g/dL RDW 21.0 H (11.5-15.5) % Neutrophils # (Manual) 16.90 H (1.3-7.7) k/uL Lymphocytes # (Manual) 0.79 L (1.0-4.8) k/uL Monocytes # (Manual) 1.97 H (0-1.0) k/uL Metamyelocytes # (Man) 0.20 H (0) k/uL Myelocytes # (Manual) 0.20 H (0) k/uL Nucleated RBCs 7 H (0-0) /100 WBC ABG pH 7.24 L (7.35-7.45) ABG pCO2 47 H (35-45) mmHg ABG pO2 63 L (83-108) mmHg ABG HCO3 20 L (21-25) mmol/L ABG O2 Saturation 89.3 L (94-97) % Sodium 133 L (137-145) mmol/L Carbon Dioxide 15 L (22-30) mmol/L BUN 29 H (7-17) mg/dL Creatinine 1.60 H (0.52-1.04) mg/dL Glucose 47 L* (74-99) mg/dL POC Glucose (mg/dL) (75-99) mg/dL Phosphorus 8.1 H* (2.5-4.5) mg/dL 01/18/18 01/18/18 Range/Units 04:50 05:29 WBC (3.8-10.6) k/uL Hgb (11.4-16.0) gm/dL MCH (25.0-35.0) pg MCHC (31.0-37.0) g/dL RDW (11.5-15.5) % Neutrophils # (Manual) (1.3-7.7) k/uL Lymphocytes # (Manual) (1.0-4.8) k/uL Monocytes # (Manual) (0-1.0) k/uL Metamyelocytes # (Man) (0) k/uL Myelocytes # (Manual) (0) k/uL Nucleated RBCs (0-0) /100 WBC ABG pH (7.35-7.45) ABG pCO2 (35-45) mmHg ABG pO2 (83-108) mmHg ABG HCO3 (21-25) mmol/L ABG O2 Saturation (94-97) % Sodium (137-145) mmol/L Carbon Dioxide (22-30) mmol/L BUN (7-17) mg/dL Creatinine (0.52-1.04) mg/dL Glucose (74-99) mg/dL POC Glucose (mg/dL) 39 L 121 H (75-99) mg/dL Phosphorus (2.5-4.5) mg/dL Microbiology - Last 24 Hours (Table) 01/14/18 15:30 Blood Culture - Preliminary Blood No Growth after 72 hours Assessment and Plan Plan: 1. Acute on chronic hypoxemic respiratory failure with hypercarbic respiratory failure secondary to pulmonary hypertension, acute on chronic diastolic CHF, restriction in diaphragmatic excursion secondary to abdominal distention from chronic constipation, PALMIRA, pulmonary hypertension continue nebulized albuterol Atrovent, Bipap. Continue levofloxacin and Zosyn 2. Profuse hypotension secondary to probable cardiogenic shock requiring vasopressors without improvement. 3. Multiorgan failure with acute respiratory failure, acute renal failure. Treat underlying cause. 4. Acute on chronic diastolic heart failure. She is now off Toprol, Lasix. 5. Elevated troponin acute coronary syndrome ruled out 6. Obesity with hypoventilation syndrome and obstructive sleep apnea noncompliant with CPAP on the snf, chronic hypercarbia, on O2 6 L maintenance in snf. 7. Severe secondary pulmonary hypertension from obstructive sleep apnea, noncompliant to CPAP machine, 8. Medical debility, bedbound. 9. GERD and GI prophylaxis. Continue Protonix 40 mg orally once every day. 10. Hypertension and hypertensive cardiovascular disease. Currently hypotensive. 11. Hyperlipidemia. Low-cholesterol diet. 12. Hypothyroidism. Continue Synthroid 125 g orally once every day. 13. Peripheral neuropathy. Continue gabapentin 200 mg orally twice every day. 14. Recurrent depression and generalized anxiety disorder. Continue patient on Cymbalta 60 mg orally once every day and Lexapro 10 mg orally once every day. 15. Osteoarthritis with joint deformities including the right hand as well as bilateral lower extremity's. History of prolonged hospitialisation including intubation with developmont of significant paraparesis of both lower extremities with significant deformity of the right wrist. 16. ALLERGIC rhinitis. 17. DVT prophylaxis. heparin q12 CODE STATUS: No code Prognosis: Poor. Anticipate family to make her comfort care within the next 24 hours Impression and plan of care have been directed as dictated by the signing physician. Mary Souza nurse practitioner acting as scribe for signing physician.
--- NOTE | 2018-01-20 00:03 | P.DS ---
Providers Date of admission: 01/14/18 16:51 Expected date of discharge: 01/18/18 Attending physician: Edilberto Lopez MD Consults: 01/14/18 16:51 Consult Physician Urgent Consulting Provider: Celena Arita Consult Reason/Comments: Hypoxia, dyspnea Do you want consulting provider notified?: Yes 01/15/18 09:08 Consult Physician Urgent Consulting Provider: Vincent Wset Consult Reason/Comments: pulmonary HTN Do you want consulting provider notified?: Yes Primary care physician: [facility] Course: 77-year-old female patient of my patient currently residing at [facility] with past medical history COPD on 6 L Oxygen , hypertension, obstructive sleep apnea refusing BiPAP/CPAP nighttime, chronic pain, gastric esophageal reflux disease, hypothyroidism, ALLERGIC rhinitis, osteoarthritis, idiopathic peripheral autonomic neuropathy, chronic urinary tract infections, vitamin D deficiency, morbid obesity, bed bound for the past 13 years, h/o prolonged intubation leading to tracheostomy which was finally removed, has been bedbound ever seen , History of severe pulmonary hypertension with severe tricuspid regurgitation was seen last in September 2017 for worsening shortness of breath and was discharged on 6 L of oxygen. Patient was treated for abdominal pain and difficulty breathing in the last visit. CT imaging with concern for cholelithiasis in the distal common duct and fecal impaction was seen. Patient also had a urinary tract infection with Proteus and was treated with Rocephin. Patient also received GoLYTELY treatment for her chronic constipation. Patient was transferred to the emergency room secondary to increasing shortness of breath, no significant cough , blood gas obtained at room air suggestive pO2 of 31. Patient was transferred to the ICU and was placed on BiPAP overnight. On my assessment this morning patient is doing well she is saturating in the low 90s on 6 L of oxygen. Systolic Blood pressure documented to be in the low 70s. Patient received 80 mg of IV Lasix in the ER as patient has high BNP with no urine output. His blood pressure was reportedly low patient was given 2 L of IV fluids followed by a 500 bolus this morning. Patient has contractures bilaterally lower extremity as well as upper extremity for being bedbound and has falls blood pressure readings on the blood pressure cough. Patient on examination appears to be dry and dehydrated. Urine output has improved with IV fluids. Vitals this morning suggestive blood pressure of 108/43, pulse of 101, respiratory rate 24 on BiPAP 92%. Currently on high flow of 6 L oxygen saturating well at 96-100%. Blood pressure cough reading of 67/51 is also as patient has good pulsation and is alert and oriented. Unable to get good blood pressure with cough readings. Labs obtained in the ER suggestive of hemoglobin of 11.6 leukocyte 10.2, INR 1.1, pO2 31 and CO2 47. Sodium 133 chloride 90, glucose 122 and creatinine 1. Troponin 3 were elevated though cardiology evaluated troponin anemia in the past with echocardiogram and has ruled out ACS in the past. Ideology and pulmonary consulted for help with pulmonary hypertension and hypoxia and increased BNP. Urinalysis is positive for leukocyte esterase. WBC and hyaline cast 01/16 patient is more awake and alert still requiring 6 L of high flow oxygen. Blood pressure stable with IV fluids running at 100 mL/h. Patient initiated on Lasix and Aldactone to help with urine output. Patient is maintaining a 30-40 mL per hour of urine output. Urine cultures are still pending continue Zosyn. 01/17: Patient remains in the intensive care unit. She is currently on 10 L high flow will be switched over to BiPAP. ABGs obtained and to be reviewed with Dr. Russ. Discussed patient's condition and CODE STATUS with her daughter and she is uncomfortable making decision Moreira DO NOT RESUSCITATE. She will come in the hospital and encouraged her mother to use a mask. IV fluids have been stopped and patient is on IV Lasix 40 mg twice daily. White count is at 10.4, hemoglobin 10.1, BUN 25 and creatinine 1.1. Sodium is 131, blood sugars morning was 64. The culture showing no growth after 48 hours and urine cultures been finalized with no growth. Patient's overall condition is deteriorating. 01/18: She continues to deteriorate. She has had low urine output and continues to be hypotensive and on levo at 45 mics. Arterial line was attempted last night by anesthesia which was unsuccessful. Blood sugar this morning was 39 and patient was given dextrose 50%. During the night, patient was made no code. Discussed with family the need for comfort care at this point. Await family decision. Family have decided on comfort care and [facility] consulted. Patient will be transitioned to hospice. Discharge diagnoses: 1. Acute on chronic hypoxemic respiratory failure with hypercarbic respiratory failure secondary to pulmonary hypertension, acute on chronic diastolic CHF, restriction in diaphragmatic excursion secondary to abdominal distention from chronic constipation, PALMIRA, pulmonary hypertension continue nebulized albuterol Atrovent, Bipap. Continue levofloxacin and Zosyn 2. Profuse hypotension secondary to probable cardiogenic shock requiring vasopressors without improvement. 3. Multiorgan failure with acute respiratory failure, acute renal failure. 4. Acute on chronic diastolic heart failure. 5. Elevated troponin acute coronary syndrome ruled out 6. Obesity with hypoventilation syndrome and obstructive sleep apnea noncompliant with CPAP 7. Severe secondary pulmonary hypertension from obstructive sleep apnea 8. Medical debility, bedbound. 9. GERD 10. Hypertension and hypertensive cardiovascular disease. Currently hypotensive. 11. Hyperlipidemia. 12. Hypothyroidism. 13. Peripheral neuropathy. 14. Recurrent depression and generalized anxiety disorder. 15. Osteoarthritis with joint deformities 16. ALLERGIC rhinitis. Plan: patient transitioned to hospice. All aggressive treatments terminated. Impression and plan of care have been directed as dictated by the signing physician. Mary Souza nurse practitioner acting as scribe for signing physician. Patient Condition at Discharge: Undetermined Plan - Discharge Summary Discharge Rx Participant: No New Discharge Prescriptions: No Action Aspirin 81 mg PO BID Sodium Chloride [Saline Mist] 2 spray NASAL Q12H PRN PRN Reason: DRYNESS/ALLERGIES Ipratropium-Albuterol Nebulize [Duoneb 0.5 mg-3 mg/3 ml Soln] 3 ml INHALATION RT-Q4H PRN PRN Reason: BRONCHODILATOR Topiramate [Topamax] 50 mg PO BID Gabapentin [Neurontin] 200 mg PO BID DULoxetine HCL [Cymbalta] 60 mg PO BID Cholecalciferol [Vitamin D3] 2,000 unit PO DAILY Omeprazole [PriLOSEC] 20 mg PO DAILY@0600 Loratadine [Claritin] 10 mg PO DAILY Lidocaine 5% Patch [Lidoderm 5% Patch] 1 patch TOPICAL Q12H PRN MDD 2 patches PRN Reason: joint pain Levothyroxine Sodium [Synthroid] 125 mcg PO DAILY@0600 Sennosides-Docusate Sodium [Senokot-S] 2 tab PO DIRECTED QUEtiapine [SEROquel] 12.5 mg PO HS acetaZOLAMIDE [Diamox] 250 mg PO DAILY Budesonide [Pulmicort] 1 mg INHALATION RT-BID Melatonin 10 mg PO HS Vitamins A and D [Vitamin A and D] 1 applic TOPICAL BID Bisacodyl [Dulcolax] 10 mg RECTAL DAILY PRN PRN Reason: Constipation Mag Hydrox/Al Hydrox/Simeth [Maalox] 30 ml PO Q4H PRN PRN Reason: Gi Upset Lactose-Reduced Food [Ensure Plus] 237 ml PO QID@,,, Escitalopram [Lexapro] 20 mg PO DAILY Bacillus Coagulans [Digestive Advantage] 1 cap PO DAILY Spironolactone [Aldactone] 25 mg PO DAILY tab Hydrocodone/Acetaminophen [[place] 7.5-325] 1 tab PO Q6HR PRN #60 tab PRN Reason: Pain Hydrocodone/Acetaminophen [[place] 7.5-325] 1 tab PO BID #60 tab Lubiprostone [Amitiza] 24 mcg PO DAILY #30 cap Vits A and D/White Pet/Lanolin [A and D Ointment] 1 applic TOPICAL DAILY PRN PRN Reason: AFTER CLEASE TO BUTTOCKS Polyethylene Glycol 3350 [Miralax] 17 gm PO MOTUTHFRSA@2100 Polyethylene Glycol 3350 [Miralax] 17 gm PO DAILY PRN PRN Reason: Constipation Magnesium Hydroxide [Milk of Magnesia] 2,400 mg PO DAILY PRN PRN Reason: Constipation Lidocaine Viscous 2% [Xylocaine Viscous] 0.3 ml MUCOUS MEM Q4H PRN PRN Reason: Sore Throat Ipratropium-Albuterol Nebulize [Duoneb 0.5 mg-3 mg/3 ml Soln] 3 ml INHALATION RT-QID@,,, Furosemide [Lasix] 40 mg PO BID@ Collagenase [Santyl] 1 applic TOPICAL HS Collagenase [Santyl] 1 applic TOPICAL DAILY PRN PRN Reason: BUNION Colchicine 0.6 mg PO DAILY Benzocaine [place] [Hurricaine [place]] 1 applic TOPICAL DAILY PRN PRN Reason: RIGHT BUNION/PAIN RELIEF Benzocaine [place] [Hurricaine [place]] 1 applic TOPICAL Q12H ALPRAZolam [Xanax] 0.25 mg PO TID@,, Allopurinol [Zyloprim] 600 mg PO DAILY Acetaminophen Tab [Tylenol Tab] 650 mg PO Q4H PRN PRN Reason: Fever And/ Or Pain Discharge Medication List Aspirin 81 mg PO BID 01/12/17 [History] Cholecalciferol [Vitamin D3] 2,000 unit PO DAILY 01/12/17 [History] DULoxetine HCL [Cymbalta] 60 mg PO BID 01/12/17 [History] Gabapentin [Neurontin] 200 mg PO BID 01/12/17 [History] Ipratropium-Albuterol Nebulize [Duoneb 0.5 mg-3 mg/3 ml Soln] 3 ml INHALATION RT -Q4H PRN 01/12/17 [History] Levothyroxine Sodium [Synthroid] 125 mcg PO DAILY@0601/12/17 [History] Lidocaine 5% Patch [Lidoderm 5% Patch] 1 patch TOPICAL Q12H PRN MDD 2 patches [History] Loratadine [Claritin] 10 mg PO DAILY 01/12/17 [History] Omeprazole [PriLOSEC] 20 mg PO DAILY@0601/12/17 [History] Sodium Chloride [Saline Mist] 2 spray NASAL Q12H PRN 01/12/17 [History] Topiramate [Topamax] 50 mg PO BID 01/12/17 [History] QUEtiapine [SEROquel] 12.5 mg PO HS 07/21/17 [History] Sennosides-Docusate Sodium [Senokot-S] 2 tab PO DIRECTED 07/21/17 [History] Budesonide [Pulmicort] 1 mg INHALATION RT-BID 08/03/17 [History] Melatonin 10 mg PO HS 08/03/17 [History] acetaZOLAMIDE [Diamox] 250 mg PO DAILY 08/03/17 [History] Bacillus Coagulans [Digestive Advantage] 1 cap PO DAILY 09/20/17 [History] Bisacodyl [Dulcolax] 10 mg RECTAL DAILY PRN 09/20/17 [History] Escitalopram [Lexapro] 20 mg PO DAILY 09/20/17 [History] Lactose-Reduced Food [Ensure Plus] 237 ml PO QID@06,13,17,21 09/20/17 [History] Mag Hydrox/Al Hydrox/Simeth [Maalox] 30 ml PO Q4H PRN 09/20/17 [History] Vitamins A and D [Vitamin A and D] 1 applic TOPICAL BID 09/20/17 [History] Hydrocodone/Acetaminophen [[place] 7.5-325] 1 tab PO BID #60 tab 09/22/17 [Rx] Hydrocodone/Acetaminophen [[place] 7.5-325] 1 tab PO Q6HR PRN #60 tab 09/22/17 [Rx ] Spironolactone [Aldactone] 25 mg PO DAILY tab 09/22/17 [Rx] Lubiprostone [Amitiza] 24 mcg PO DAILY #30 cap 09/23/17 [Rx] ALPRAZolam [Xanax] 0.25 mg PO TID@,12,01/14/18 [History] Acetaminophen Tab [Tylenol Tab] 650 mg PO Q4H PRN 01/14/18 [History] Allopurinol [Zyloprim] 600 mg PO DAILY 01/14/18 [History] Benzocaine [place] [Hurricaine [place]] 1 applic TOPICAL DAILY PRN 01/14/18 [History ] Benzocaine [place] [Hurricaine [place]] 1 applic TOPICAL Q12H 01/14/18 [History] Colchicine 0.6 mg PO DAILY 01/14/18 [History] Collagenase [Santyl] 1 applic TOPICAL DAILY PRN 01/14/18 [History] Collagenase [Santyl] 1 applic TOPICAL HS 01/14/18 [History] Furosemide [Lasix] 40 mg PO BID@,01/14/18 [History] Ipratropium-Albuterol Nebulize [Duoneb 0.5 mg-3 mg/3 ml Soln] 3 ml INHALATION RT -QID@,,,01/14/18 [History] Lidocaine Viscous 2% [Xylocaine Viscous] 0.3 ml MUCOUS MEM Q4H PRN 01/14/18 [ History] Magnesium Hydroxide [Milk of Magnesia] 2,400 mg PO DAILY PRN 01/14/18 [History] Polyethylene Glycol 3350 [Miralax] 17 gm PO DAILY PRN 01/14/18 [History] Polyethylene Glycol 3350 [Miralax] 17 gm PO MOTUTHFRSA@2100 01/14/18 [History] Vits A and D/White Pet/Lanolin [A and D Ointment] 1 applic TOPICAL DAILY PRN 06/02 [History] Follow up Appointment(s)/Referral(s): Gracia Elizabeth MD [Primary Care Provider] - 1-2 days Discharge Disposition: DISCH TO HOSPICE MED FACILTY
== END 2018-01-18 14:41 | disposition hospice, inpatient (51) | DRG 189 ==
LOC: EC 14:55 → 6SEL 16:51 → 6ICU 17:18
PROVIDERS: ADMIT Internal Medicine; ATTEND Internal Medicine
PROC: 5A09457 Assistance with Respiratory Ventilation, 24-96 Consecutive Hours, Continuous Positive Airway Pressure (ICD-10-PCS; principal; 2018-01-14)
DX: J96.21 Acute and chronic respiratory failure with hypoxia (principal); I50.33 Acute on chronic diastolic (congestive) heart failure; R57.0 Cardiogenic shock; E66.2 Morbid (severe) obesity with alveolar hypoventilation; N39.0 Urinary tract infection, site not specified; G82.20 Paraplegia, unspecified; N17.9 Acute kidney failure, unspecified; J96.22 Acute and chronic respiratory failure with hypercapnia; I27.29 Other secondary pulmonary hypertension; R13.10 Dysphagia, unspecified; I07.1 Rheumatic tricuspid insufficiency; Z66 Do not resuscitate; Z51.5 Encounter for palliative care; I95.9 Hypotension, unspecified; I11.0 Hypertensive heart disease with heart failure; J44.9 Chronic obstructive pulmonary disease, unspecified; E86.0 Dehydration; G90.09 Other idiopathic peripheral autonomic neuropathy; B96.4 Proteus (mirabilis) (morganii) as the cause of diseases classified elsewhere; M06.9 Rheumatoid arthritis, unspecified; D64.9 Anemia, unspecified; G47.33 Obstructive sleep apnea (adult) (pediatric); K59.09 Other constipation; F32.9 Major depressive disorder, single episode, unspecified; E03.9 Hypothyroidism, unspecified; E78.5 Hyperlipidemia, unspecified; F41.1 Generalized anxiety disorder; M19.031 Primary osteoarthritis, right wrist; M19.072 Primary osteoarthritis, left ankle and foot; M19.071 Primary osteoarthritis, right ankle and foot; K21.9 Gastro-esophageal reflux disease without esophagitis; J30.9 Allergic rhinitis, unspecified; E55.9 Vitamin D deficiency, unspecified; Z68.32 Body mass index [BMI] 32.0-32.9, adult; Z91.19 Patient's noncompliance with other medical treatment and regimen; Z99.81 Dependence on supplemental oxygen; Z79.82 Long term (current) use of aspirin; Z79.890 Hormone replacement therapy; Z79.891 Long term (current) use of opiate analgesic; Z79.51 Long term (current) use of inhaled steroids; Z79.899 Other long term (current) drug therapy; Z87.01 Personal history of pneumonia (recurrent); Z87.440 Personal history of urinary (tract) infections; Z86.19 Personal history of other infectious and parasitic diseases; Z90.49 Acquired absence of other specified parts of digestive tract; Z96.642 Presence of left artificial hip joint; Z87.891 Personal history of nicotine dependence; Z87.81 Personal history of (healed) traumatic fracture; Z74.01 Bed confinement status; Z88.1 Allergy status to other antibiotic agents; Z82.49 Family history of ischemic heart disease and other diseases of the circulatory system; Z82.3 Family history of stroke
CPT/HCPCS: 36415; 36600; 51702; 71045; 71046; 80048; 80053; 80061; 81001; 82550; 82553; 82805; 83605; 83735; 83880; 84100; 84132; 84484; 85025; 85379; 85610; 85730; 87040; 87086; 93005; 93306; 94640; 94660; 96374; 99285

== ENCOUNTER 2018-01-18 13:13 | Inpatient (IN) | payer MEDICAID ==
[2018-01-18] MEDS ORDERED: LORazepam 2 MG/ML INJ IV PRN (13:17)
[2018-01-18] MEDS ORDERED: ACETAMINOPHEN SUPPOSITORY 650 MG SUPP RECTAL PRN (13:17)
[2018-01-18] MEDS ORDERED: ONDANSETRON 4 MG/2 ML VIAL IVP PRN (13:17)
[2018-01-18] MEDS ORDERED: ATROPINE OPHTH SOLN 1% 5ML BTL SUBLINGUAL PRN (13:17)
[2018-01-18] MEDS ORDERED: MORPHINE SULFATE (100 MG/2 ML) 100 MG in SODIUM CHLORIDE 0.9% 100 ML IV SCH (13:30)
[2018-01-18 19:03] VITALS: PULSE 80; RESP 13
--- NOTE | 2018-01-20 00:06 | P.HPIM ---
History of Present Illness H&P Date: 01/18/18 Chief Complaint: hospice care 77-year-old female patient of my patient currently residing at [facility] with past medical history COPD on 6 L Oxygen , hypertension, obstructive sleep apnea refusing BiPAP/CPAP nighttime, chronic pain, gastric esophageal reflux disease, hypothyroidism, ALLERGIC rhinitis, osteoarthritis, idiopathic peripheral autonomic neuropathy, chronic urinary tract infections, vitamin D deficiency, morbid obesity, bed bound for the past 13 years, h/o prolonged intubation leading to tracheostomy which was finally removed, has been bedbound ever seen , History of severe pulmonary hypertension with severe tricuspid regurgitation was seen last in September 2017 for worsening shortness of breath and was discharged on 6 L of oxygen. Patient was treated for abdominal pain and difficulty breathing in the last visit. CT imaging with concern for cholelithiasis in the distal common duct and fecal impaction was seen. Patient also had a urinary tract infection with Proteus and was treated with Rocephin. Patient also received GoLYTELY treatment for her chronic constipation. Patient was transferred to the emergency room secondary to increasing shortness of breath, no significant cough , blood gas obtained at room air suggestive pO2 of 31. Patient was transferred to the ICU and was placed on BiPAP overnight. On my assessment this morning patient is doing well she is saturating in the low 90s on 6 L of oxygen. Systolic Blood pressure documented to be in the low 70s. Patient received 80 mg of IV Lasix in the ER as patient has high BNP with no urine output. His blood pressure was reportedly low patient was given 2 L of IV fluids followed by a 500 bolus this morning. Patient has contractures bilaterally lower extremity as well as upper extremity for being bedbound and has falls blood pressure readings on the blood pressure cough. Patient on examination appears to be dry and dehydrated. Urine output has improved with IV fluids. Vitals this morning suggestive blood pressure of 108/43, pulse of 101, respiratory rate 24 on BiPAP 92%. Currently on high flow of 6 L oxygen saturating well at 96-100%. Blood pressure cough reading of 67/51 is also as patient has good pulsation and is alert and oriented. Unable to get good blood pressure with cough readings. Labs obtained in the ER suggestive of hemoglobin of 11.6 leukocyte 10.2, INR 1.1, pO2 31 and CO2 47. Sodium 133 chloride 90, glucose 122 and creatinine 1. Troponin 3 were elevated though cardiology evaluated troponin anemia in the past with echocardiogram and has ruled out ACS in the past. Ideology and pulmonary consulted for help with pulmonary hypertension and hypoxia and increased BNP. Urinalysis is positive for leukocyte esterase. WBC and hyaline cast 01/16 patient is more awake and alert still requiring 6 L of high flow oxygen. Blood pressure stable with IV fluids running at 100 mL/h. Patient initiated on Lasix and Aldactone to help with urine output. Patient is maintaining a 30-40 mL per hour of urine output. Urine cultures are still pending continue Zosyn. 01/17: Patient remains in the intensive care unit. She is currently on 10 L high flow will be switched over to BiPAP. ABGs obtained and to be reviewed with Dr. Russ. Discussed patient's condition and CODE STATUS with her daughter and she is uncomfortable making decision [place] DO NOT RESUSCITATE. She will come in the hospital and encouraged her mother to use a mask. IV fluids have been stopped and patient is on IV Lasix 40 mg twice daily. White count is at 10.4, hemoglobin 10.1, BUN 25 and creatinine 1.1. Sodium is 131, blood sugars morning was 64. The culture showing no growth after 48 hours and urine cultures been finalized with no growth. Patient's overall condition is deteriorating. 01/18: She continues to deteriorate. She has had low urine output and continues to be hypotensive and on levo at 45 mics. Arterial line was attempted last night by anesthesia which was unsuccessful. Blood sugar this morning was 39 and patient was given dextrose 50%. During the night, patient was made no code. Discussed with family the need for comfort care at this point. Await family decision. Family have decided on comfort care and [facility] consulted. Patient will be transitioned to hospice. Patient on 01/18. Please see nursing documentation for details. Preliminary cause of : acute on chronic diastolic heart failure Discharge diagnoses: 1. Acute on chronic hypoxemic respiratory failure with hypercarbic respiratory failure secondary to pulmonary hypertension, acute on chronic diastolic CHF, restriction in diaphragmatic excursion secondary to abdominal distention from chronic constipation, PALMIRA, pulmonary hypertension continue nebulized albuterol Atrovent, Bipap. Continue levofloxacin and Zosyn 2. Profuse hypotension secondary to probable cardiogenic shock requiring vasopressors without improvement. 3. Multiorgan failure with acute respiratory failure, acute renal failure. 4. Acute on chronic diastolic heart failure. 5. Elevated troponin acute coronary syndrome ruled out 6. Obesity with hypoventilation syndrome and obstructive sleep apnea noncompliant with CPAP 7. Severe secondary pulmonary hypertension from obstructive sleep apnea 8. Medical debility, bedbound. 9. GERD 10. Hypertension and hypertensive cardiovascular disease. Currently hypotensive. 11. Hyperlipidemia. 12. Hypothyroidism. 13. Peripheral neuropathy. 14. Recurrent depression and generalized anxiety disorder. 15. Osteoarthritis with joint deformities 16. ALLERGIC rhinitis. Impression and plan of care have been directed as dictated by the signing physician. Mary Souza nurse practitioner acting as scribe for signing physician. Past Medical History Past Medical History: Heart Failure, COPD, GERD/Reflux, Hyperlipidemia, Hypertension, Musculoskeletal Disorder, Neurologic Disorder, Osteoarthritis (OA) , Pneumonia, Sleep Apnea/CPAP/BIPAP, Thyroid Disorder Additional Past Medical History / Comment(s): Respiratory failure with O2 at 6L/ [place] ATC, pulmonary HTN, bilateral pneumonia, tracheobronchitis, chronic UTIs, urosepsis with prolonged intubation and has been bed bound since (15yrs), past sacral decubitus-skin reddened now per lake but not open, recent fecal impaction , PALMIRA with Bipap use at times, chronic pain, diffuse abdominal pain for past few months, idiopathic peripheral autonomic neuropathy, arthritis in multiple joints, 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 History of Any Multi-Drug Resistant Organisms: VRE Date of last positivie culture/infection: 01/12/17 MDRO Source:: Urine Past Surgical History: Appendectomy, Joint Replacement, Orthopedic Surgery Additional Past Surgical History / Comment(s): PEG tube and trach placement with removals, left hip arthroplasty in 1995, ankle fracture with ORIF/hardware. Past Anesthesia/Blood Transfusion Reactions: No Reported Reaction Past Psychological History: Anxiety, Depression Additional Psychological History / Comment(s): Pt resides at [facility] on [facility]. She is bedbound. She wears O2 at 6L/[place] ATC. Smoking Status: Former smoker Past Alcohol Use History: Unable to Obtain Additional Past Alcohol Use History / Comment(s): Patient was a smoker 3 packs per day for 38 years and quit in 1978. She has had alcohol use in the past. Past Drug Use History: Unable to Obtain - Past Family History Father Family Medical History: Myocardial Infarction ([place]) Additional Family Medical History / Comment(s): at age 58 from [place] and had a fall with head injury. Mother Family Medical History: CVA/TIA Additional Family Medical History / Comment(s): Mother at age 70 from a CVA. Brother(s) Family Medical History: No Reported History Additional Family Medical History / Comment(s): Patient has one brother with no major medical problems. Sister(s) Family Medical History: No Reported History Additional Family Medical History / Comment(s): Patient has one sister with no major medical problems. Daughter(s) Family Medical History: No Reported History Additional Family Medical History / Comment(s): Patient has 2 daughters no major medical problems. Medications and Allergies Home Medications Medication Instructions Recorded Confirmed Type Aspirin 81 mg PO BID 01/12/17 01/18/18 History Cholecalciferol [Vitamin D3] 2,000 unit PO DAILY 01/12/17 01/18/18 History DULoxetine HCL [Cymbalta] 60 mg PO BID 01/12/17 01/18/18 History Gabapentin [Neurontin] 200 mg PO BID 01/12/17 01/18/18 History Ipratropium-Albuterol Nebulize 3 ml INHALATION RT-Q4H PRN 01/12/17 01/18/18 History [Duoneb 0.5 mg-3 mg/3 ml Soln] Levothyroxine Sodium [Synthroid] 125 mcg PO DAILY@59901/12/17 01/18/18 History Lidocaine 5% Patch [Lidoderm 5% 1 patch TOPICAL Q12H PRN MDD 2 01/12/17 History Patch] patches Loratadine [Claritin] 10 mg PO DAILY 01/12/17 01/18/18 History Omeprazole [PriLOSEC] 20 mg PO DAILY@59901/12/17 01/18/18 History Sodium Chloride [Saline Mist] 2 spray NASAL Q12H PRN 01/12/17 01/18/18 History Topiramate [Topamax] 50 mg PO BID 01/12/17 01/18/18 History QUEtiapine [SEROquel] 12.5 mg PO HS 07/21/17 01/18/18 History Sennosides-Docusate Sodium 2 tab PO DIRECTED 07/21/17 01/18/18 History [Senokot-S] Budesonide [Pulmicort] 1 mg INHALATION RT-BID 08/03/17 01/18/18 History Melatonin 10 mg PO HS 08/03/17 01/18/18 History acetaZOLAMIDE [Diamox] 250 mg PO DAILY 08/03/17 01/18/18 History Bacillus Coagulans [Digestive 1 cap PO DAILY 09/20/17 01/18/18 History Advantage] Bisacodyl [Dulcolax] 10 mg RECTAL DAILY PRN 09/20/17 01/18/18 History Escitalopram [Lexapro] 20 mg PO DAILY 09/20/17 01/18/18 History Lactose-Reduced Food [Ensure Plus] 237 ml PO QID@,,,09/20/17 01/18/18 History Mag Hydrox/Al Hydrox/Simeth 30 ml PO Q4H PRN 09/20/17 01/18/18 History [Maalox] Vitamins A and D [Vitamin A and D] 1 applic TOPICAL BID 09/20/17 01/18/18 History Hydrocodone/Acetaminophen [Stafford 1 tab PO BID #60 tab 09/22/17 01/18/18 Rx 7.5-325] Hydrocodone/Acetaminophen [Stafford 1 tab PO Q6HR PRN #60 tab 09/22/17 01/18/18 Rx 7.5-325] Spironolactone [Aldactone] 25 mg PO DAILY tab 09/22/17 01/18/18 Rx Lubiprostone [Amitiza] 24 mcg PO DAILY #30 cap 09/23/17 01/18/18 Rx ALPRAZolam [Xanax] 0.25 mg PO TID@06,12,01/14/18 01/18/18 History Acetaminophen Tab [Tylenol Tab] 650 mg PO Q4H PRN 01/14/18 01/18/18 History Allopurinol [Zyloprim] 600 mg PO DAILY 01/14/18 01/18/18 History Benzocaine Centrahoma [Hurricaine Centrahoma] 1 applic TOPICAL DAILY PRN 01/14/18 History Benzocaine Centrahoma [Hurricaine Centrahoma] 1 applic TOPICAL Q12H 01/14/18 01/18/18 History Colchicine 0.6 mg PO DAILY 01/14/18 01/18/18 History Collagenase [Santyl] 1 applic TOPICAL DAILY PRN 01/14/18 01/18/18 History Collagenase [Santyl] 1 applic TOPICAL HS 01/14/18 01/18/18 History Furosemide [Lasix] 40 mg PO BID@06,12 01/14/18 01/18/18 History Ipratropium-Albuterol Nebulize 3 ml INHALATION RT-QID@09,,17,01/14/1801/18 History [Duoneb 0.5 mg-3 mg/3 ml Soln] Lidocaine Viscous 2% [Xylocaine 0.3 ml MUCOUS MEM Q4H PRN 01/14/18 01/18/18 History Viscous] Magnesium Hydroxide [Milk of 2,400 mg PO DAILY PRN 01/14/18 01/18/18 History Magnesia] Polyethylene Glycol 3350 [Miralax] 17 gm PO DAILY PRN 01/14/18 01/18/18 History Polyethylene Glycol 3350 [Miralax] 17 gm PO MOTUTHFRSA@2100 01/14/18 01/18/18 History Vits A and D/White Pet/Lanolin [A 1 applic TOPICAL DAILY PRN 01/14/18 01/18/18 History and D Ointment] Allergies Allergy/AdvReac Type Severity Reaction Status Date / Time metronidazole [From Flagyl] Allergy Unknown Verified 01/18/18 15:20
== END 2018-01-18 22:24 | disposition expired | DRG 951 ==
LOC: 6ICU 14:48
PROVIDERS: ADMIT Internal Medicine; ATTEND Internal Medicine
DX: Z51.5 Encounter for palliative care (principal); I50.33 Acute on chronic diastolic (congestive) heart failure; J96.21 Acute and chronic respiratory failure with hypoxia; J96.22 Acute and chronic respiratory failure with hypercapnia; E66.2 Morbid (severe) obesity with alveolar hypoventilation; F33.9 Major depressive disorder, recurrent, unspecified; N17.9 Acute kidney failure, unspecified; E03.9 Hypothyroidism, unspecified; E78.5 Hyperlipidemia, unspecified; F41.1 Generalized anxiety disorder; I07.1 Rheumatic tricuspid insufficiency; I11.0 Hypertensive heart disease with heart failure; I27.29 Other secondary pulmonary hypertension; J30.9 Allergic rhinitis, unspecified; J44.9 Chronic obstructive pulmonary disease, unspecified; K21.9 Gastro-esophageal reflux disease without esophagitis; K59.09 Other constipation; M19.90 Unspecified osteoarthritis, unspecified site; R57.0 Cardiogenic shock; G89.29 Other chronic pain; E55.9 Vitamin D deficiency, unspecified; R77.9 Abnormality of plasma protein, unspecified; M24.50 Contracture, unspecified joint; G60.8 Other hereditary and idiopathic neuropathies; Z79.899 Other long term (current) drug therapy; Z79.82 Long term (current) use of aspirin; Z79.890 Hormone replacement therapy; Z96.642 Presence of left artificial hip joint; Z91.19 Patient's noncompliance with other medical treatment and regimen; Z87.891 Personal history of nicotine dependence; Z87.01 Personal history of pneumonia (recurrent); Z74.01 Bed confinement status; Z87.440 Personal history of urinary (tract) infections; Z99.81 Dependence on supplemental oxygen; Z90.49 Acquired absence of other specified parts of digestive tract; Z88.1 Allergy status to other antibiotic agents; Z82.49 Family history of ischemic heart disease and other diseases of the circulatory system; Z82.3 Family history of stroke